=== PATIENT | male | born 1935 | race Caucasian/White ===

== ENCOUNTER 2019-06-28 10:53 | Outpatient (CLI) | payer MEDICARE, SELFPAY ==
--- NOTE | 2019-06-28 11:03 | USCV_ITS ---
ReneeAlessandro Age: 83 Gender: M : 1935 Exam Date: 06/28/2019 11:14 Ordering Phys: Marlin Jesus Technologist: Monserrat Self Exam Location: [facility] [place] Indication: HISTORY: Lower extremity swelling. PROCEDURES: Bilateral duplex Venous Insufficiency study of the Deep and Superficial systems was carried out according to normal protocol with the patient in supine positon for deep system and dependent position for the superficial system. FINDINGS: There is no evidence of bilateral deep vein thrombosis. No evidence of superficial thrombosis in the bilateral saphenous system. No venous reflux noted in the bilateral small saphenous vein. Venous reflux was demonstrated in the RIGHT SFJ with a spectral display of greater than 500 milliseconds. Venous reflux is demonstrated in the RIGHT greater saphenous vein with a spectral Doppler display of greater than 500 milliseconds at the below the knee level. No venous reflux noted in the LEFT greater saphenous vein. Reflux is demonstrated in the deep venous system at the level of the RIGHT popliteal. Reflux is demonstrated in the deep venous system at the level of the LEFT popliteal. CONCLUSIONS 1. Significant venous reflux of greater than 1000 ms were noted in the right and left popliteal veins. 2. Significant venous reflux of greater than 500 ms were noted at the right saphenofemoral junction and below-knee greater saphenous vein segment. 3. No significant superficial venous reflux was noted on the left side. 4. Venous dimensions, reflux times and depth from the surface are as mentioned above Dr Chyna Hudson MD [facility] (Electronically Signed) Final Date: 28 June 2019 19:42 S
== END 2019-06-28 10:54 | disposition home or self-care (01) ==
LOC: RAD 10:55
PROVIDERS: Family Provider Family Medicine; Visit Provider Nurse Practitioner Family
DX: M79.89 Other specified soft tissue disorders (principal)
CPT/HCPCS: 93970

== ENCOUNTER 2019-11-29 05:52 | Observation (INO) | payer MEDICARE, SELFPAY ==
[2019-11-29] VITALS (18 sets, daily range): BP systolic 105–171; BP diastolic 52–87; PULSE 74–118; RESP 18–22; TEMP 36.7–39.4; O2SAT 92–100; BMI 23.8
--- NOTE | 2019-11-29 06:05 | W.ED.GENADLT ---
HPI - General Adult General: Chief complaint: Fever Stated complaint: 102.8 temp Time Seen by Provider: 11/29/19 06:05 History of Present Illness: HPI narrative: 83-year-old male presents with a fever last night up to 102.8 on oral temp. Does around 3:30 AM family states he took some Tylenol. He said he is a low-grade fever for the last several days he said some urinary retention and urgency he has been able to go a bit but has not been able to completely empty his bladder has had some dysuria as well and the urine is been discolored and foul-smelling. Last night he has been somewhat short of breath as well as some orthopnea. He denies any hematuria that he is noticed his bowel movements have been unchanged from his usual pattern of moderate bowel urgency but no hematochezia or melena. He does have some chronic neck pain but that is been unchanged as well he has a history of prostate CA remote he was treated with radiation but he is not had any follow-up. He denies cough or productive cough no exposure to known COVID cases recently. MD complaint: Fever Onset (ago): day(s) Radiation: non-radiation Severity: moderate Quality: aching Pain Consistency: intermittent Relieving factors: none Exacerbating factors: none Associated symptoms: Reports dyspnea, fevers/chills and malaise; Deny chest pain, confusion, cough, diaphoresis, decreased appetite, headache(s), nausea, rash, palpitations, seizures, short of breath, syncope, vomiting or weakness Treatments prior to arrival: other (Acetaminophen) Review of Systems Const: Reports: malaise; Denies: diaphoresis ENMT: Denies: throat pain, ear or mastoid pain, nasal discharge or nasal congestion Card: Denies: chest pain, palpitations or syncope Resp: Reports: dyspnea, productive cough, non-productive cough, wheezing and chest congestion GI: Denies: nausea or vomiting : Reports: urinary frequency and urinary urgency; Denies: flank pain or dysuria Skin/Breast: Denies: rash Neuro: Denies: headache(s) or confusion Danny/Lymph: Denies: easy bruising or easy bleeding PFS ED PFSH: Medical History Anxiety COPD (chronic obstructive pulmonary disease) Diastolic congestive heart failure History of CVA (cerebrovascular accident) History of seizure disorder History of seizures Hyperlipidemia Hypertension Prostate CA Status post radiation Pulmonary hypertension Surgical History History of cataract surgery History of excision of lesion L neck History of tonsillectomy Family History Mother , 98, healthy No problems noted. Father CAD (coronary artery disease) Social History (Updated 11/29/19 @ 10:13 by Aline Kumar DO) Smoking and tobacco status: heavy tobacco smoker cigarettes Packs smoked per day: 1 Years cigarettes smoked: 40 Number of cigarettes per day: >20 [ Other cigarette details: [id number] history ] Quit status (tobacco): has quit using tobacco Year quit tobacco: 20 years ago Second hand smoke exposure: No Alcohol intake: never Substance/Drug Use: never Lives independently: Yes Household members: none Physical Exam Const: COMMON NORMALS: no acute distress GENERAL APPEARANCE: cooperative and comfortable ORIENTATION/CONSCIOUSNESS: Yes awake, Yes oriented to person, Yes oriented to place and Yes oriented to time HENMT: COMMON NORMALS: normocephalic, atraumatic, hearing grossly normal bilaterally, external ears normal, EAC's normal, TM's normal bilaterally, Normal nasal mucous membranes and turbinates present, moist oral mucous membranes and oropharynx normal HEAD & SCALP: normocephalic and atraumatic NOSE: Normal nasal mucous membranes and turbinates present EXTERNAL EAR: Yes external ears normal EXTERNAL AUDITORY CANAL: EAC's normal TYMPANIC MEMBRANE: TM's normal bilaterally Eye: COMMON NORMALS: Equal, round and reactive pupils present, EOMs intact bilaterally, conjunctivae normal and no scleral icterus CONJUNCTIVA: Yes conjunctivae normal PUPIL: Yes Equal, round and reactive pupils present Neck/C-Spine: COMMON NORMALS: full ROM, no lymphadenopathy, supple and no JVD Lymph: LYMPHATIC: no lymphadenopathy noted and no lymphedema noted Resp: COMMON NORMALS: normal respiratory effort, No retractions and No use of accessory muscles AUSCULTATION: wheezes expiratory wheezes and throughout and diminished lung sounds Cardio: COMMON NORMALS: no JVD, regular rate, regular rhythm and No murmurs present (Cardio) RATE: regular rate RHYTHM: regular rhythm GI: COMMON NORMALS: Soft to palpation and No hepatosplenomegaly present AUSCULTATION: Yes normoactive bowel sounds PALPATION: Yes Soft to palpation, Yes Tenderness to palpation present (GI) (Mild suprapubic discomfort no guarding no rebound), No Guarding due to palpation present (GI) and Yes No hepatosplenomegaly present Extremity: COMMON NORMALS: normal to inspection, capillary refill normal, no clubbing, cyanosis or edema, no calf tenderness and no pedal edema Neuro: SENSORIUM/ORIENTATION: Yes oriented to person, Yes oriented to place and Yes oriented to time Skin: COMMON NORMALS: no rashes or lesions noted GENERAL SKIN EXAM: no rashes or lesions noted Course Vital Signs: Vital signs: Vital Signs Temperature 102.9 F H 11/29/19 11:45 Pulse Rate 74 11/29/19 11:45 Respiratory Rate 18 11/29/19 11:45 Blood Pressure 146/78 11/29/19 11:45 Pulse Oximetry 95 11/29/19 11:45 MDM - General Adult MDM Narrative: Medical decision making narrative: Discussed with Dr. Kumar he definitely has some signs of interstitial fibrosis in some fluid overloaded clinically have did get some improvement in the emergency room with IV diuretics but I suspect is interstitial fibrosis her primary probably also needs some improvement with his COPD he will need further evaluation quitting rule out [place] and further cardiac evaluation as well as review of old records from his other sources. Also concerned about COVID and he has been swapped Dr. Kumar as accepted onto her service. Lab Data: Labs: Lab Results 11/29/19 11/29/19 11/29/19 Range/Units 06:30 07:10 07:38 WBC 5.8 (4.0-10.0) 10^3/ uL RBC 4.05 L (4.1-5.3) 10^6/u L Hgb 12.0 (11.7-16.6) g/dL Hct 37.2 L (42.0-52.0) % MCV 91.9 (80-94) fL MCH 29.6 (28.0-34.0) pg MCHC 32.3 (30.0-36.0) g/dL RDW 12.1 (12.1-15.1) % Plt Count 225 (130-400) 10^3/c mm MPV 8.9 (7.4-10.4) fL Neut % (Auto) 84.3 % Lymph % (Auto) 7.7 % [place] % (Auto) 7.0 % Eos % (Auto) 0.2 % Baso % (Auto) 0.5 % Neut # (Auto) 4.9 (1.8-7.7) 10^3/u L Lymph # (Auto) 0.4 L (0.8-4.8) 10^3/u L [place] # (Auto) 0.4 (0.2-0.9) 10^3/u L Eos # (Auto) 0.0 (0.0-0.8) 10^3/u L Baso # (Auto) 0.0 (0.0-0.1) 10^3/u L Nucleated RBC % (a uto) 0 % Nucleated RBCs # 0.0 /100WBC Sodium (136-145) mmol/L Potassium (3.5-5.1) mmol/L Chloride (98-107) mmol/L Carbon Dioxide (22-29) mmol/L Anion Gap (5-19) BUN (8-23) mg/dL Creatinine (0.7-1.2) mg/dL Glucose (65-115) mg/dL Calculated Osmolal ity (285-295) mOsm/k g Lactate (0.5-2.2) mmol/L Calcium (8.5-10.5) mg/dL Total Bilirubin (0.15-1.2) mg/dL AST (0-40) U/L ALT (0-41) U/L Alkaline Phosphata se (40-130) IU/L Total Protein (6.6-8.7) g/dL Albumin (3.5-5.2) g/dL Globulin (1.3-4.6) g/dL Lipase (13-60) U/L Urine Color Martin (Yellow) Urine Appearance Cloudy (CLEAR) Urine pH 6.0 (5-7) Ur Specific Gravit y 1.010 (1.005-1.030) Urine Protein 2+ H (Negative) Urine Glucose (UA) Norm (Normal) Urine Ketones Negative (Negative) Urine Blood 2+ H (Negative) Urine Nitrate Positive H (Negative) Urine Bilirubin 2+ H (NEGATIVE) Urine Urobilinogen 4 H (Negative) mg/dL Ur Leukocyte Michelle ase 2+ H (Negative) Urine RBC 0-4 H (0-2) /hpf Urine WBC >100 H (0-5) /hpf Ur Squamous Epith Cells 0-4 H (0-5) Urine Bacteria 3+ H (NONE) Influenza Type A A g Negative (Negative) Influenza Type B A g Negative (Negative) 11/29/19 11/29/19 Range/Units 07:38 07:38 WBC (4.0-10.0) 10^3/ uL RBC (4.1-5.3) 10^6/u L Hgb (11.7-16.6) g/dL Hct (42.0-52.0) % MCV (80-94) fL MCH (28.0-34.0) pg MCHC (30.0-36.0) g/dL RDW (12.1-15.1) % Plt Count (130-400) 10^3/c mm MPV (7.4-10.4) fL Neut % (Auto) % Lymph % (Auto) % [place] % (Auto) % Eos % (Auto) % Baso % (Auto) % Neut # (Auto) (1.8-7.7) 10^3/u L Lymph # (Auto) (0.8-4.8) 10^3/u L [place] # (Auto) (0.2-0.9) 10^3/u L Eos # (Auto) (0.0-0.8) 10^3/u L Baso # (Auto) (0.0-0.1) 10^3/u L Nucleated RBC % (a uto) % Nucleated RBCs # /100WBC Sodium 141 (136-145) mmol/L Potassium 3.5 (3.5-5.1) mmol/L Chloride 101 (98-107) mmol/L Carbon Dioxide 26 (22-29) mmol/L Anion Gap 17.5 (5-19) BUN 17 (8-23) mg/dL Creatinine 0.9 (0.7-1.2) mg/dL Glucose 98 (65-115) mg/dL Calculated Osmolal ity 288 (285-295) mOsm/k g Lactate 1.2 (0.5-2.2) mmol/L Calcium 9.3 (8.5-10.5) mg/dL Total Bilirubin 0.3 (0.15-1.2) mg/dL AST 30 (0-40) U/L ALT 11 (0-41) U/L Alkaline Phosphata se 133 H (40-130) IU/L Total Protein 7.3 (6.6-8.7) g/dL Albumin 4.5 (3.5-5.2) g/dL Globulin 2.8 (1.3-4.6) g/dL Lipase 48 (13-60) U/L Urine Color (Yellow) Urine Appearance (CLEAR) Urine pH (5-7) Ur Specific Gravit y (1.005-1.030) Urine Protein (Negative) Urine Glucose (UA) (Normal) Urine Ketones (Negative) Urine Blood (Negative) Urine Nitrate (Negative) Urine Bilirubin (NEGATIVE) Urine Urobilinogen (Negative) mg/dL Ur Leukocyte Michelle ase (Negative) Urine RBC (0-2) /hpf Urine WBC (0-5) /hpf Ur Squamous Epith Cells (0-5) Urine Bacteria (NONE) Influenza Type A A g (Negative) Influenza Type B A g (Negative) Discharge Plan Discharge Patient Disposition: Placed in Observation Admit Provider: Aline Kumar Clinical Impression: COPD (chronic obstructive pulmonary disease), Cystitis, Diffuse interstitial pulmonary fibrosis Condition: Stable Discharge Diet: Usual diet Interventions: ED Discharge Assessment Last Done: 11/29/19 09:50 ED Charges Last Done: 11/29/19 09:50 Discharge Date/Time: 11/29/19 10:17 Coding Level of Care Code ED Online Project Manager for Michaelg Fwd Exam Comprehensive
--- NOTE | 2019-11-29 06:37 | XR_ITS ---
WS: [id number] PORTABLE CHEST HISTORY: dyspnea/cough COMPARISON: 03/16/2019 Hyperinflated lungs. No pneumonia. Biapical pleural thickening and scarring is stable. No pleural eff usion or pneumothorax. Cardiac size: Normal. Mediastinum/Aorta: Mild atherosclerosis aorta. No osseous abnormality seen. XR/XR chest 1V portable [id number] IMPRESSION: Chronic emphysema and partially calcified aorta.
[2019-11-29 07:43] LABS: Influenza A by IFA Negative (Negative); Influenza B by IFA Negative (Negative)
[2019-11-29 07:48] LABS: Basophils % 0.5 %; Eosinophils % 0.2 %; Hematocrit 37.2 % (42.0-52.0); Lymphocytes # 0.4 10^3/uL (0.8-4.8); Lymphocytes % 7.7 %; Mean Corpuscular HGB Conc 32.3 g/dL (30.0-36.0); Mean Corpuscular Hemoglobin 29.6 pg (28.0-34.0); Mean Corpuscular Volume 91.9 fL (80-94); Mean Platelet Volume 8.9 fL (7.4-10.4); Monocytes # 0.4 10^3/uL (0.2-0.9); Neutrophils # 4.9 10^3/uL (1.8-7.7); Neutrophils % 84.3 %; Nucleated Red Blood Cells % 0 %; Platelet Count 225 10^3/cmm (130-400); Red Blood Count 4.05 10^6/uL (4.1-5.3); Red Cell Distribution Width 12.1 % (12.1-15.1); White Blood Count 5.8 10^3/uL (4.0-10.0)
[2019-11-29 08:01] LABS: Add Urine Culture? Yes; Add Urine Microscopic? YES; Bacteria Urine 3+; Bilirubin Urine 2+ (NEGATIVE); Blood Urine 2+ (Negative); Glucose Urine UA Norm (Normal); Ketones Urine Negative (Negative); Leukocyte Esterase Urine 2+ (Negative); Nitrate Urine Positive (Negative); Protein Urine 2+ (Negative); RBC Urine 0-4 /hpf (0-2); Squamous Epithelial Cell Urine 0-4 (0-5); Urine Appearance Cloudy (CLEAR); Urine Color Orange (Yellow); Urobilinogen Urine 4 mg/dL (Negative); WBC Urine >100 /hpf (0-5)
[2019-11-29 08:03] LABS: Alanine Aminotransferase 11 U/L (0-41); Albumin Level 4.5 g/dL (3.5-5.2); Alkaline Phosphatase 133 IU/L (40-130); Anion Gap 17.5 (5-19); Aspartate Amino Transferase 30 U/L (0-40); Blood Urea Nitrogen 17 mg/dL (8-23); Calcium 9.3 mg/dL (8.5-10.5); Carbon Dioxide 26 mmol/L (22-29); Chloride 101 mmol/L (98-107); Globulin 2.8 g/dL (1.3-4.6); Glucose 98 mg/dL (65-115); Lipase 48 U/L (13-60); Osmolality Calculated 288 mOsm/kg (285-295); Potassium 3.5 mmol/L (3.5-5.1); Sodium 141 mmol/L (136-145); Total Bilirubin 0.3 mg/dL (0.15-1.2); Total Protein 7.3 g/dL (6.6-8.7)
[2019-11-29 08:04] LABS: Lactate (Lactic Acid level) 1.2 mmol/L (0.5-2.2)
[2019-11-29] MEDS: cefTRIAXone 1,000 MG in sodium chloride 0.9% (plus) 50 ML 100 MG IV (08:14)
[2019-11-29] MEDS: sodium chloride 0.9% 1,000 ML 999 ML IV (08:15)
[2019-11-29] MEDS: ipratropium-albuterol 3 mL Neb INHALATION ×2 (08:20→17:31)
--- NOTE | 2019-11-29 09:23 | P.HP_ITS ---
Providers/Chief Complaint Admitting Physician: Alien Kumar DO Chief Complaint: 102.8 temp History of Present Illness Alessandro Duran is a 83 year old male that presented to the ED for fever. Patient has a past medical history of hypertension, COPD, history of seizure disorder, history of CVA, history of prostate cancer with radiation, diastolic congestive heart failure and moderate pulmonary hypertension. Patient reports that symptoms started last week, around Friday or . Stated he began feeling fever and dysuria. Has been having continued burning with urination since that time. He states that overnight he began developing chills and night sweats. Reported that his highest temperature at home was 102.8 ?F. Patient denies any sick contacts, no recent antibiotics. He reports history of prostate cancer, however no chronic indwelling Grewal catheter, no recent Grewal catheter. Patient denies any history of resistant urinary tract infections. Patient noted some chronic cough with chronic sputum production secondary to COPD, no change from baseline, no hemoptysis. No exposure to anyone pending or positive for CO VID-19. Patient was seen and evaluated in the emergency department noted to have concern for UTI and admitted for further evaluation and treatment. Review of Systems Const: Reports: fever(s) and chills Eyes: Denies: change in vision ENMT: Denies: nasal congestion Card: Denies: chest pain, palpitations or edema Resp: Reports: productive cough (chronic, unchanged); Denies: dyspnea or hemoptysis GI: Denies: abdominal pain, nausea, vomiting, diarrhea, constipation, hematochezia or melena : Reports: difficulty urinating, dysuria and urinary dribbling; Denies: hematuria Musc: Denies: extremity pain or muscle cramps Skin/Breast: Denies: rash or new lesions Neuro: Denies: headache(s) or dizziness Psych: Denies: anxiety or depression Endo: Denies: polyuria or hot flashes Danny/Lymph: Denies: easy bruising or easy bleeding Medications/Allergies Home Medications Medication Instructions Recorded Confirmed Last Taken Type amlodipine 5 mg PO DAILY 11/29/19 11/29/19 11/28/19 History aspirin 81 mg PO DAILY 11/29/19 11/29/19 11/28/19 History furosemide 20 mg PO DAILY 11/29/19 11/29/19 11/28/19 History gemfibrozil 600 mg PO BID 11/29/19 11/29/19 11/28/19 History hydralazine 5 mg PO TID 11/29/19 11/29/19 11/28/19 History ipratropium-albuterol 3 ml INHALATION Q6H PRN 11/29/19 11/29/19 Unknown History losartan 100 mg PO DAILY 11/29/19 11/29/19 11/28/19 History metoprolol tartrate 100 mg PO BID 11/29/19 11/29/19 11/28/19 History oxcarbazepine 300 mg PO BID 11/29/19 11/29/19 11/28/19 History potassium chloride 20 meq PO DAILY 11/29/19 11/29/19 11/28/19 History Allergies Allergy/AdvReac Type Severity Reaction Status Date / Time amoxicillin Allergy Unknown Verified 11/29/19 06:05 PFSH Acute PFSH: Medical History Anxiety COPD (chronic obstructive pulmonary disease) Diastolic congestive heart failure History of CVA (cerebrovascular accident) History of seizure disorder History of seizures Hyperlipidemia Hypertension Prostate CA Status post radiation Pulmonary hypertension Surgical History History of cataract surgery History of excision of lesion L neck History of tonsillectomy Family History Mother , 98, healthy No problems noted. Father CAD (coronary artery disease) Social History (Updated 11/29/19 @ 10:13 by Aline Kumar DO) Smoking and tobacco status: heavy tobacco smoker cigarettes Packs smoked per day: 1 Years cigarettes smoked: 40 Number of cigarettes per day: >20 [ Other cigarette details: [id number] history ] Quit status (tobacco): has quit using tobacco Year quit tobacco: 20 years ago Second hand smoke exposure: No Alcohol intake: never Substance/Drug Use: never Lives independently: Yes Household members: none Vitals/I&O/Wt Last Vital Signs Temp 98.5 F 11/29/19 08:24 Pulse 117 H 11/29/19 08:59 Resp 22 H 11/29/19 08:59 BP 160/84 11/29/19 08:59 Pulse Ox 99 11/29/19 08:59 Weight last 48 hrs Weight 67.132 kg Physical Exam Const: COMMON NORMALS: patient oriented x3 and alert GENERAL APPEARANCE: cooperative ORIENTATION/CONSCIOUSNESS: Yes awake, Yes oriented to person, Yes oriented to place and Yes oriented to time HENMT: COMMON NORMALS: normocephalic and atraumatic HEAD & SCALP: n ormocephalic and atraumatic Eye: COMMON NORMALS: Equal, round and reactive pupils present PUPIL: Yes Equal, round and reactive pupils present Neck/C-Spine: COMMON NORMALS: supple GENERAL: Yes normal visual inspection Resp: OTHER: Respirations even and unlabored, diminished breath sounds bilaterally with prolonged expiratory phase, no wheezing at time of exam Cardio: COMMON NORMALS: regular rhythm and No murmurs present (Cardio) RATE: tachycardic RHYTHM: regular rhythm GI: COMMON NORMALS: Soft to palpation INSPECTION: No abdominal distension AUSCULTATION: Yes normoactive bowel sounds PALPATION: Yes Soft to palpation OTHER: Mild tenderness to palpation in the suprapubic region, no CVA tenderness : COMMON NORMALS: Yes no CVA tenderness BLADDER/KIDNEY EXAM: Yes no CVA tenderness Back/Pelvis: COMMON NORMALS: no CVA tenderness Extremity: COMMON NORMALS: no clubbing, cyanosis or edema and no calf tenderne ss Neuro: COMMON NORMALS: patient oriented x3, CN's II-XII intact bilaterally, moves all extremities and no focal motor deficits SENSORIUM/ORIENTATION: Yes alert, Yes oriented to person, Yes oriented to place and Yes oriented to time SPEECH: speech normal Psych: COMMON NORMALS: mental status grossly normal and cooperative Skin: COMMON NORMALS: no rashes or lesions noted GENERAL SKIN EXAM: no rashes or lesions noted Data : 11/29/19 07:38 11/29/19 07:38 Micro: Microbiology 11/29/19 08:09 Blood Culture - Preliminary Blood SPECIMEN COLLECTED 11/29/19 07:38 Blood Culture - Preliminary Blood SPECIMEN COLLECTED CXR: I personally reviewed and interpreted this imaging study as follows: Radiologist's impression: Hyperinflated lungs. No pneumonia. Biapical pleural thickening and scarring is stable. No pleural effusion or pneumothorax. Cardiac size: Normal. Mediastinum/Aorta: Mild atherosclerosis aorta. No osseous abnormality seen. XR/XR chest 1V portable [id number] IMPRESSION: Chronic emphysema and partially calcified aorta. A&P Assessment and plan (1) Cystitis: Acute cystitis in the setting of prior history of prostate cancer with radiation greater than 10 years ago We will continue on Rocephin, given 1 dose while in the ED Observation Sinus tachycardia and fever with known UTI. Urine culture and blood culture ordered and pending. Status: Acute (2) COPD (chronic obstructive pulmonary disease): Without acute exacerbation at this time. Patient reports that cough and sputum production are baseline. He has oxygen at home on an as-needed basis, currently on 2 L, will wean as tolerated with a goal oxygen saturation of 90 to 92%. Continue home inhalers at this time, would likely benefit from ICS Status: Acute (3) Hypertension: Restart amlodipine and metoprolol as well as losartan today Status: Acute (4) History of seizure disorder: Patient reports that last seizure was many years ago Monitor closely on seizure precautions and continue home Trileptal Status: Acute (5) Anxiety: Status: Acute (6) History of CVA (cerebrovascular accident): Continue on aspirin, would likely benefit from statin. Will check lipid panel Status: Acute (7) Diastolic congestive heart failure: Patient slightly hypovolemic on admission. Now appears to be euvolemic. Will hold on Lasix until tomorrow morning. Last echocardiogram showed normal LVEF with heart failure with preserved ejection fraction Status: Acute (8) Pulmonary hypertension: Last echocardiogram with moderate pulmonary hypertension Medication plan as above, holding Lasix as noted until tomorrow Status: Acute Additional A&P Information Sinus tachycardia: Likely secondary to not having his metoprolol this morning along with fever from acute cystitis L arm pain: could be secondary to IV, checking IV. 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
--- NOTE | 2019-11-29 10:26 | ECG_ITS ---
Measurements Intervals [place] Rate: 116 P: -76 TX: 131 QRS: -30 QRSD: 86 T: 53 QT: 345 QTc: 479 SINUS TACHYCARDIA SEPTAL MYOCARDIAL INFARCTION , OF INDETERMINATE AGE [40+ ms Q WAVE IN V1/V2] Compared to ECG 09/19/2017 02:38:05 Junctional tachycardia now present Myocardial infarct finding now present Sinus rhythm no longer present Electronically Signed On 11-29-2019 19:28:58 CDT by Essence Hernandez M.D. [id number]
[2019-11-29] MEDS: losartan 50 mg Tablet 100 MG PO (10:35)
[2019-11-29] MEDS: metoprolol tartrate 50 mg Tablet 100 MG PO (10:35)
[2019-11-29] MEDS: aspirin 81 mg Chew Tablet PO (10:35)
[2019-11-29] MEDS: amlodipine 5 mg Tablet PO (10:36)
[2019-11-29] MEDS: sodium chloride 0.9% 1,000 ML 100 ML IV (10:36)
[2019-11-29] MEDS: enoxaparin 40 mg/0.4 mL Syringe SUBCUT (11:07)
[2019-11-29 11:16] LABS: Troponin(5th) Baseline 25 ng/L (0-15)
[2019-11-29 11:25] LABS: Thyroid Stimulating Hormone 0.98 uIU/mL (0.27-4.20)
--- NOTE | 2019-11-29 12:03 | PC.RESP ---
SMOKING CESSATION AND PULMONARY REHAB INFORMATION SENT TO PATIENT.
[2019-11-29] MEDS: acetaminophen 325 mg Tablet 650 MG PO ×2 (12:05→18:08)
--- NOTE | 2019-11-29 12:17 | ECG_ITS ---
Measurements Intervals [place] Rate: 77 P: 68 ID: 200 QRS: -38 QRSD: 85 T: 39 QT: 403 QTc: 457 SINUS RHYTHM WITH SINUS ARRHYTHMIA MARKED LEFT AXIS DEVIATION [QRS AXIS < -30] Compared to ECG 09/19/2017 02:38:05 No significant changes Electronically Signed On 11-29-2019 19:31:33 CDT by Essence Hernandez M.D. [id number]
[2019-11-29 13:24] LABS: Troponin 5 2HR 26.56 ng/L (0-15); Troponin 5 2HR Delta 1.56 ABS# (0-10)
[2019-11-29] MEDS: hyDRALAzine 10 mg Tablet 5 MG PO (14:35)
--- NOTE | 2019-11-29 16:17 | ECG_ITS ---
Measurements Intervals [place] Rate: 86 P: 8 FL: 150 QRS: -28 QRSD: 89 T: 44 QT: 386 QTc: 464 SINUS RHYTHM BORDERLINE LEFT AXIS DEVIATION [QRS AXIS < -20] Compared to ECG 09/19/2017 02:38:05 No significant changes Electronically Signed On 11-29-2019 19:31:50 CDT by Essence Hernandez M.D. [email or web address]
[2019-11-29] MEDS: OXcarbazepine 300 mg Tablet PO (17:03)
[2019-11-29 17:17] LABS: Troponin 5 6HR 31.16 ng/L (0-15); Troponin 5 6HR Delta 6.16 ng/L (0-12)
[2019-11-29] MEDS: TRAMadol 50 mg Tablet PO (18:07)
[2019-11-30] VITALS (9 sets, daily range): BP systolic 144–162; BP diastolic 45–99; PULSE 82–103; RESP 17–22; TEMP 36.6–37.5; O2SAT 90–95
[2019-11-30 05:50] LABS: Basophils % 0.4 %; Hemoglobin 10.2 g/dL (11.7-16.6); Lymphocytes # 0.7 10^3/uL (0.8-4.8); Lymphocytes % 14.9 %; Mean Corpuscular HGB Conc 32.9 g/dL (30.0-36.0); Mean Corpuscular Hemoglobin 29.9 pg (28.0-34.0); Mean Corpuscular Volume 90.9 fL (80-94); Mean Platelet Volume 8.8 fL (7.4-10.4); Monocytes # 0.6 10^3/uL (0.2-0.9); Monocytes % 12.3 %; Neutrophils # 3.3 10^3/uL (1.8-7.7); Neutrophils % 72.2 %; Nucleated Red Blood Cells % 0 %; Platelet Count 193 10^3/cmm (130-400); Red Blood Count 3.41 10^6/uL (4.1-5.3); Red Cell Distribution Width 12.1 % (12.1-15.1); White Blood Count 4.6 10^3/uL (4.0-10.0)
[2019-11-30 06:16] LABS: Alanine Aminotransferase 12 U/L (0-41); Albumin Level 3.5 g/dL (3.5-5.2); Alkaline Phosphatase 89 IU/L (40-130); Anion Gap 16.4 (5-19); Aspartate Amino Transferase 33 U/L (0-40); Blood Urea Nitrogen 12 mg/dL (8-23); Calcium 9.2 mg/dL (8.5-10.5); Carbon Dioxide 24 mmol/L (22-29); Chloride 102 mmol/L (98-107); Creatinine Clr Calc Pharmacy 63.3236; Globulin 2.8 g/dL (1.3-4.6); Glucose 99 mg/dL (65-115); Osmolality Calculated 284 mOsm/kg (285-295); Potassium 3.4 mmol/L (3.5-5.1); Sodium 139 mmol/L (136-145); Total Bilirubin 0.2 mg/dL (0.15-1.2); Total Protein 6.3 g/dL (6.6-8.7)
[2019-11-30 06:21] LABS: Chol HDL Ratio 4.28 mg/dL (1.0-5.00); Cholesterol 154 mg/dL (0-200); HDL Cholesterol 36 mg/dL (60-100); LDL Cholesterol Calculated 93 mg/dL (50-129); LDL HDL Ratio 2.58 RATIO (0.00-3.22); Triglycerides 124 mg/dL (0-150)
[2019-11-30] MEDS: losartan 50 mg Tablet 100 MG PO (08:38)
[2019-11-30] MEDS: aspirin 81 mg Chew Tablet PO (08:38)
[2019-11-30] MEDS: hyDRALAzine 10 mg Tablet 5 MG PO ×3 (08:39→20:25)
[2019-11-30] MEDS: FUROsemide 20 mg Tablet PO (08:41)
[2019-11-30] MEDS: amlodipine 5 mg Tablet PO (08:41)
[2019-11-30] MEDS: cefTRIAXone 1,000 MG in sodium chloride 0.9% (plus) 50 ML 100 MG IV (08:42)
[2019-11-30] MEDS: metoprolol tartrate 50 mg Tablet 100 MG PO ×2 (09:03→21:12)
[2019-11-30] MEDS: OXcarbazepine 300 mg Tablet PO ×2 (09:06→18:40)
--- NOTE | 2019-11-30 11:03 | PM.PN ---
Subjective Subjective: Interval history: Patient awake in bed at time of exam. He reported that he is feeling much better today. He stated that he was even able to eat breakfast this morning. Appetite is slowly increasing. Patient did have continued fever this morning. He denies any chest pain or shortness of breath. Vitals/I&O/Wt Last Vital Signs Temp 97.9 F 11/30/19 04:00 Pulse 103 H 11/30/19 08:00 Resp 18 11/30/19 08:00 BP 152/45 11/30/19 08:38 Pulse Ox 90 11/30/19 08:00 11/29/19 11/30/19 11/30/19 22:59 06:59 14:59 Intake Total 240 / 240 Output Total 250 / 375 180 / 555 175 / 175 Balance -250 / -325 -180 / -505 65 / 65 Weight last 48 hrs Weight 68.266 kg Weight 67.132 kg Physical Exam Const: COMMON NORMALS: patient oriented x3 and alert GENERAL APPEARANCE: cooperative ORIENTATION/CONSCIOUSNESS: Yes awake, Yes oriented to person, Yes oriented to place and Yes oriented to time HENMT: COMMON NORMALS: normocephalic and atraumatic HEAD & SCALP: normocephalic and atraumatic Eye: COMMON NORMALS: Equal, round and reactive pupils present PUPIL: Yes Equal, round and reactive pupils present Neck/C-Spine: COMMON NORMALS: supple GENERAL: Yes normal visual inspection Resp: COMMON NORMALS: normal respiratory effort and clear to auscultation bilaterally EFFORT & INSPECTION: Yes able to speak in complete sentences AUSCULTATION: clear to auscultation bilaterally, no rhonchi and no wheezes OTHER: Respirations even and unlabored, diminished breath sounds bilaterally with prolonged expiratory phase Cardio: COMMON NORMALS: regular rate, regular rhythm and No murmurs present (Cardio) RATE: regular rate RHYTHM: regular rhythm GI: COMMON NORMALS: Soft to palpation INSPECTION: No abdominal distension AUSCULTATION: Yes normoactive bowel sounds PALPATION: Yes Soft to palpation OTHER: No tenderness to palpation : COMMON NORMALS: Yes no CVA tenderness BLADDER/KIDNEY EXAM: Yes no CVA tenderness Back/Pelvis: COMMON NORMALS: no CVA tenderness Extremity: COMMON NORMALS: no clubbing, cyanosis or edema and no calf tenderness Neuro: COMMON NORMALS: patient oriented x3, CN's II-XII intact bilaterally, moves all extremities and no focal motor deficits SENSORIUM/ORIENTATION: Yes alert, Yes oriented to person, Yes oriented to place and Yes oriented to time SPEECH: speech normal Psych: COMMON NORMALS: mental status grossly normal and cooperative Skin: COMMON NORMALS: no rashes or lesions noted GENERAL SKIN EXAM: no rashes or lesions noted Data : 11/30/19 05:24 11/30/19 05:24 Micro: Microbiology 11/29/19 06:30 Urine Culture - Preliminary Urine,Clean Catch Gram Negative Rods 11/29/19 08:09 Blood Culture - Preliminary Blood NEGATIVE TO DATE 11/29/19 07:38 Blood Culture - Preliminary Blood NEGATIVE TO DATE A&P Assessment and plan (1) Cystitis: Acute cystitis in the setting of prior history of prostate cancer with radiation greater than 10 years ago Patient continues to have fever, will continue with IV antibiotics Urine culture showing gram-negative rods Due to continued fever will continue close monitoring, fever with tachycardia Status: Acute (2) COPD (chronic obstructive pulmonary disease): Without acute exacerbation at this time. Patient reports that cough and sputum production are baseline. He has oxygen at home on an as-needed basis, currently on 2 L, will wean as tolerated with a goal oxygen saturation of 90 to 92%. Continue home inhalers at this time, would likely benefit from ICS Status: Acute (3) Hypertension: Continue amlodipine and metoprolol as well as losartan Status: Acute (4) History of seizure disorder: Patient reports that last seizure was many years ago Monitor closely on seizure precautions and continue home Trileptal Status: Acute (5) Anxiety: Ativan PRN Status: Acute (6) History of CVA (cerebrovascular accident): Continue on aspirin, would likely benefit from statin. Status: Acute (7) Diastolic congestive heart failure: Patient slightly hypovolemic on admission. Now appears to be euvolemic. Will hold on Lasix until tomorrow morning. Last echocardiogram showed normal LVEF with heart failure with preserved ejection fraction Status: Acute (8) Pulmonary hypertension: Last echocardiogram with moderate pulmonary hypertension Medication plan as above, lasix continued today Status: Acute Additional A&P Information Sinus tachycardia: secondary to fever L arm pain: resolved DVT prophylaxis: Lovenox Diet: Regular CODE STATUS: Full code Attestations Medical Necessity Statement*: Patient requires continued hospitalization due to acute cystitis with fever and tachycardia Coding Level of Care Code Acute Animal Husbandry Technician for Chg Fwd Diagnoses Cystitis N30.90 COPD (chronic obstructive pulmonary disease) J44.9 Hypertension I10 History of seizure disorder Z86.69 Anxiety F41.9 History of CVA (cerebrovascular accident) Z86.73 Diastolic congestive heart failure I50.30 Pulmonary hypertension I27.20
[2019-11-30] MEDS: enoxaparin 40 mg/0.4 mL Syringe SUBCUT (11:55)
--- NOTE | 2019-11-30 18:59 | PC.NURSE ---
IV CAME OUT, NOTIFIED DR ARCEO.
--- NOTE | 2019-11-30 19:08 | PC.NURSE ---
OK WITH IV STAYING OUT.
[2019-12-01] VITALS (9 sets, daily range): BP systolic 140–164; BP diastolic 83–91; PULSE 76–102; RESP 18–20; TEMP 36.9–37.2; O2SAT 92–96
[2019-12-01] MEDS: ipratropium-albuterol 3 mL Neb INHALATION (07:56)
[2019-12-01] MEDS: FUROsemide 20 mg Tablet PO (08:31)
[2019-12-01] MEDS: hyDRALAzine 10 mg Tablet 5 MG PO (08:31)
[2019-12-01] MEDS: aspirin 81 mg Chew Tablet PO (08:31)
[2019-12-01] MEDS: OXcarbazepine 300 mg Tablet PO (08:31)
[2019-12-01] MEDS: amlodipine 5 mg Tablet PO (08:31)
[2019-12-01] MEDS: cefTRIAXone 1,000 MG in sodium chloride 0.9% (plus) 50 ML 100 MG IV (08:32)
[2019-12-01] MEDS: losartan 50 mg Tablet 100 MG PO (08:32)
[2019-12-01] MEDS: enoxaparin 40 mg/0.4 mL Syringe SUBCUT (08:33)
[2019-12-01] MEDS: metoprolol tartrate 50 mg Tablet 100 MG PO (08:33)
--- NOTE | 2019-12-01 09:51 | PC.CHAP ---
Pastoral Care Encounter/Spiritual Assessment Type of Contact [] Declined laundry machine tender visit [] Patient/Family/Request visit [] Outpatient visit [] Follow-up visit [] Physician referral [] Code/Alert [] Routine visit [] Staff referral [] Actively dying [] Patient sleeping [] Family support [] [] Out of room [] Palliative care [] [] Receiving care in room [] Pre-surgical visit [] Trauma [] Long length of stay [] ICU visit [] Other: Relational/Emotional Strength [] Patient feels connected with others/family/visitors/staff [] Distress [] Loneliness/isolation [] Abandonment Spirituality of Patient [] Person of [place] [] Attends Catholic of their [place] [] Believes in Prayer [] Reads Bible or Christianity materials [] There are Spiritual issues to be addressed Residential Director Interventions [x] Prayer [] Active listening [] Non-anxious presence [] Spiritual/emotional support [] Crisis/trauma care [] Spiritual counseling [] Bereavement support [] Provided bereavement packet [] Provided Bible/devotional materials [] Provided toy/stuffed animal, coloring book to patient or family member [] Provided Communion [] Anointing/[place] [] Salvation [x] Completed spiritual assessment [] Other: Impact on Illness or Injury [] Angry [] Fearful [] Anxious [] Often cries [] Exhaustion [] Unable to work [] Unable to attend holiness [] Unable to walk/stand [] Unable to read [] Unable to drive [] Unable to eat/drink [] Unable to sleep [] Unable to be with family [] Patient intubated [] Other: Summary Dropped in on Patient. Patient feeling stronger Time spent with patient 5 min
--- NOTE | 2019-12-01 10:00 | P.DS_ITS ---
Discharge Providers Date of Admission: 11/29/19 09:00 Date of Discharge: December 01, 2019 Attending Provider at Admission: Aline Kumar DO Attending Provider at Discharge: Aline Kumar DO Primary Care Provider: Carl Parham Jr, MD Diagnoses at Discharge Discharge Diagnosis (1) Cystitis: Status: Acute (2) COPD (chronic obstructive pulmonary disease): Status: Acute (3) Hypertension: Status: Acute (4) History of seizure disorder: Status: Acute (5) Anxiety: Status: Acute (6) History of CVA (cerebrovascular accident): Status: Acute (7) Diastolic congestive heart failure: Status: Acute (8) Pulmonary hypertension: Status: Acute Reason for Visit Reason for Visit: 102.8 temp Hospital Course Hospital Course: Patient was seen and evaluated in the emergency department noted to have concern for febrile illness secondary to acute cystitis. Patient was started on IV Rocephin and admitted to the hospital for further evaluation and treatment. Patient continued to have intermittent fevers decreased energy and appetite. This continued to gradually improve with IV antibiotic therapy. Patient's fevers continued to improve and he remained afebrile for 24 hours prior to discharge. On date of discharge she was awake and alert, denied any chest pain or shortness of breath, denied any abdominal pain or nausea and stated that he was feeling much better. Discussed with patient plan for discharge to home with close follow-up with his primary care provider and oral antibiotics, patient verbalized understanding and agreed with plan. Physical Exam Const: COMMON NORMALS: patient oriented x3 and alert GENERAL APPEARANCE: cooperative ORIENTATION/CONSCIOUSNESS: Yes awake, Yes oriented to person, Yes oriented to place and Yes oriented to time HENMT: COMMON NORMALS: normocephalic and atraumatic HEAD & SCALP: n ormocephalic and atraumatic Eye: COMMON NORMALS: Equal, round and reactive pupils present PUPIL: Yes Equal, round and reactive pupils present Neck/C-Spine: COMMON NORMALS: supple GENERAL: Yes normal visual inspection Resp: COMMON NORMALS: normal respiratory effort and clear to auscultation bilaterally EFFORT & INSPECTION: Yes able to speak in complete sentences AUSCULTATION: clear to auscultation bilaterally, no rhonchi and no wheezes OTHER: Respirations even and unlabored, diminished breath sounds bilaterally with prolonged expiratory phase Cardio: COMMON NORMALS: regular rate, regular rhythm and No murmurs present (Cardio) RATE: regular rate RHYTHM: regular rhythm GI: COMMON NORMALS: Soft to palpation INSPECTION: No abdominal distension AUSCULTATION: Yes normoactive bowel sounds PALPATION: Yes Soft to palpation OTHER: No tenderness to palpation : COMMON NORMALS: Yes no CVA tenderness BLADDER/KIDNEY EXAM: Yes no CVA tenderness Back/Pelvis: COMMON NORMALS: no CVA tenderness Extremity: COMMON NORMALS: no clubbing, cyanosis or edema and no calf tenderness Neuro: COMMON NORMALS: patient oriented x3, CN's II-XII intact bilaterally, moves all extremities and no focal motor deficits SENSORIUM/ORIENTATION: Yes alert, Yes oriented to person, Yes oriented to place and Yes oriented to time SPEECH: speech normal Psych: COMMON NORMALS: mental status grossly normal and cooperative Skin: COMMON NORMALS: no rashes or lesions noted GENERAL SKIN EXAM: no rashes or lesions noted Discharge Data Data Completed and Pending: Completed Studies During Hospitalization Category Date Time Status XR chest 1V roland ble [id number] Stat Exams 11/29/19 06:37 Completed Pending at discharge Category Date Time Status Blood Culture Sta t Lab 11/29/19 08:09 Results Vitals: Last Vital Signs Temp 98.5 F 12/01/19 07:19 Pulse 88 12/01/19 08:07 Resp 18 12/01/19 07:57 BP 160/84 12/01/19 08:32 Pulse Ox 92 12/01/19 07:57 Discharge Plan Discharge Patient Disposition: Home, Self-Care Condition: Stable Prescriptions: New levofloxacin 500 mg Tablet 500 mg PO DAILY@0600 5 Days Qty: 5 RF: 0 Continued hydralazine 10 mg tablet 5 mg PO TID RF: 0 ipratropium-albuterol 0.5 mg-3 mg(2.5 mg base)/3 mL solution for nebulization 3 ml INHALATION Q6H PRN (Reason: Shortness Of Breath) RF: 0 metoprolol tartrate 100 mg tablet 100 mg PO BID RF: 0 oxcarbazepine 300 mg tablet 300 mg PO BID RF: 0 amlodipine 5 mg tablet 5 mg PO DAILY RF: 0 potassium chloride 20 mEq tablet,ER particles/crystals 20 meq PO DAILY RF: 0 gemfibrozil 600 mg tablet 600 mg PO BID RF: 0 aspirin 81 mg Tablet,Chewable 81 mg PO DAILY RF: 0 furosemide 20 mg tablet 20 mg PO DAILY RF: 0 losartan 100 mg tablet 100 mg PO DAILY RF: 0 Discharge Orders: Discharge Order (Routine); Ordered 12/01/19 Ordered By: Aline Kumar Referrals: Carl Parham Jr, MD [Primary Care Provider] - 7-10 days Discharge Diet: Advance as tolerated and Usual diet Discharge Activity: Increase activity as tolerated Activity Restrictions/Additional Instructions: Discharge to home with antibiotic, Levaquin, this is a once a day medication. 5 days prescribed. Please complete all of antibiotic course. Please monitor for any increased pain with urination, flank pain, fever or chills. Call your physician or present to the ED for any worsening. Continue to increase activity as tolerated and increase diet as tolerated. Call your physician or present to the ED for any acute illness or concern Discharge Attestations Time Spent in Discharge Care*: greater than 30 min Specific Discharge Activities: Specific discharge activities: educating and/or supporting family/caregiver Quality Metrics Clinical Quality Measures During this hospital stay, did patient experience: None Coding Level of Care Code Acute Electric Sign Wirer for Michaelg Fwd Diagnoses Cystitis N30.90 COPD (chronic obstructive pulmonary disease) J44.9 Hypertension I10 History of seizure disorder Z86.69 Anxiety F41.9 History of CVA (cerebrovascular accident) Z86.73 Diastolic congestive heart failure I50.30 Pulmonary hypertension I27.20
[2019-12-01] MEDS: levoFLOXacin 500 mg Tablet PO (10:16)
--- NOTE | 2019-12-01 16:19 | PC.RESP ---
SMOKING CESSATION AND PULMONARY REHAB INFORMATION SENT TO PATIENT.
== END 2019-12-01 13:00 | disposition home or self-care (01) ==
LOC: ER 08:57 → MEDSURG 09:24
PROVIDERS: Family Medicine; Admitting Provider Family Medicine; PCP Family Medicine; Visit Provider Family Medicine
DX: N30.90 Cystitis, unspecified without hematuria (principal); J44.9 Chronic obstructive pulmonary disease, unspecified; Z86.69 Personal history of other diseases of the nervous system and sense organs; F41.9 Anxiety disorder, unspecified; Z86.73 Personal history of transient ischemic attack (TIA), and cerebral infarction without residual deficits; I11.0 Hypertensive heart disease with heart failure; I50.30 Unspecified diastolic (congestive) heart failure; I27.20 Pulmonary hypertension, unspecified; Z79.82 Long term (current) use of aspirin; Z85.46 Personal history of malignant neoplasm of prostate; Z92.3 Personal history of irradiation; Z87.891 Personal history of nicotine dependence
CPT/HCPCS: 12345; 36415; 71045; 80053; 80061; 81001; 83605; 83690; 84443; 84484; 85025; 87040; 87077; 87086; 87186; 87804; 93005; 94640; 94664; 96365; 96372; 99283; 99285; G0378; J0696; J1650; J7030

== ENCOUNTER 2019-12-06 18:11 | Emergency (ER) | payer MEDICARE, SELFPAY ==
[2019-12-06 18:15] VITALS: BP 184/96; PULSE 98; RESP 19; TEMP 36.5; O2SAT 95; BMI 22.7
--- NOTE | 2019-12-06 18:27 | W.ED.EXTPRO ---
HPI - Extremity Problem General: Chief complaint: Extremity Injury, Lower Stated complaint: leg pain Time Seen by Provider: 12/06/19 18:22 History of Present Illness: HPI Narrative: Patient complain about charley horse in right calf today. Has history of sciatica has a history of charley horses. Denies any other problems presently. MD Complaint: extremity pain Onset (ago): day(s) Pain Consistency: intermittent Location: right and lower extremity Severity scale (1-10): 2 Quality: other (Charley horse or cramping) Radiation: proximal Associated symptoms: Deny chest pain, fever(s) or rash Review of Systems Const: Denies: fever(s), chills or body aches Eyes: Denies: change in vision or blurry vision ENMT: Denies: throat pain or nasal congestion Card: Denies: chest pain or dyspnea on exertion Resp: Denies: dyspnea, productive cough or non-productive cough GI: Denies: abdominal pain, nausea or vomiting : Denies: difficulty urinating Musc: Reports: extremity pain (Charley horse right calf) Skin/Breast: Denies: rash Neuro: Denies: headache(s) Psych: Denies: anxiety or depression Danny/Lymph: Denies: easy bruising PFSH ED PFSH: Medical History (Updated 12/02/19 @ 00:00 by ) Anxiety COPD (chronic obstructive pulmonary disease) Diastolic congestive heart failure History of CVA (cerebrovascular accident) History of seizure disorder History of seizures Hyperlipidemia Hypertension Prostate CA Status post radiation Pulmonary hypertension Surgical History History of cataract surgery History of excision of lesion L neck History of tonsillectomy Family History Mother , 98, healthy No problems noted. Father CAD (coronary artery disease) Social History (Updated 11/29/19 @ 10:13 by Aline Kumar DO) Smoking and tobacco status: former smoker Quit status (tobacco): has quit using tobacco Year quit tobacco: 20 years ago Second hand smoke exposure: No Alcohol intake: never Lives independently: Yes Household members: none Physical Exam Const: COMMON NORMALS: no acute distress, average body habitus and patient oriented x3 HENMT: COMMON NORMALS: normocephalic HEAD & SCALP: normal to inspection and normocephalic FACE & SINUS: normal facial exam Eye: COMMON NORMALS: conjunctivae normal GENERAL EYE: appearance normal, both eyes and all related structures CONJUNCTIVA: Yes conjunctivae normal Neck/C-Spine: COMMON NORMALS: no JVD Chest: COMMONS NORMALS: normal inspection of the chest Resp: COMMON NORMALS: normal respiratory effort and clear to auscultation bilaterally AUSCULTATION: clear to auscultation bilaterally Cardio: COMMON NORMALS: no JVD, regular rate and regular rhythm RATE: regular rate RHYTHM: regular rhythm GI: COMMON NORMALS: Normal to inspection, nondistended, normoactive bowel sounds present Extremity: COMMON NORMALS: normal to inspection and full ROM GENERAL: Yes other findings (Right calf appears fine no redness no swelling no tenderness presently able to move foot without problem has good distal neurovascular status) Neuro: COMMON NORMALS: patient oriented x3 Course Vital Signs: Vital signs: Vital Signs Temperature 97.7 F 12/06/19 18:15 Pulse Rate 98 12/06/19 18:15 Respiratory Rate 19 H 12/06/19 18:15 Blood Pressure 184/96 12/06/19 18:15 Pulse Oximetry 95 12/06/19 18:15 Discharge Plan Discharge Prescriptions: No Action hydralazine 10 mg tablet 5 mg PO TID RF: 0 ipratropium-albuterol 0.5 mg-3 mg(2.5 mg base)/3 mL solution for nebulization 3 ml INHALATION Q6H PRN (Reason: Shortness Of Breath) RF: 0 metoprolol tartrate 100 mg tablet 100 mg PO BID RF: 0 oxcarbazepine 300 mg tablet 300 mg PO BID RF: 0 amlodipine 5 mg tablet 5 mg PO DAILY RF: 0 potassium chloride 20 mEq tablet,ER particles/crystals 20 meq PO DAILY RF: 0 gemfibrozil 600 mg tablet 600 mg PO BID RF: 0 aspirin 81 mg Tablet,Chewable 81 mg PO DAILY RF: 0 furosemide 20 mg tablet 20 mg PO DAILY RF: 0 losartan 100 mg tablet 100 mg PO DAILY RF: 0 Coding Level of Care Code ED [employer] for Aldair Pino
[2019-12-06] MEDS: cyclobenzaprine 10 mg Tablet PO (18:43)
[2019-12-06 18:45] LABS: Basophils % 0.5 %; Eosinophils # 0.1 10^3/uL (0.0-0.8); Eosinophils % 1.7 %; Hematocrit 35.5 % (42.0-52.0); Hemoglobin 11.8 g/dL (11.7-16.6); Lymphocytes # 1.9 10^3/uL (0.8-4.8); Lymphocytes % 30.2 %; Mean Corpuscular HGB Conc 33.2 g/dL (30.0-36.0); Mean Corpuscular Hemoglobin 29.5 pg (28.0-34.0); Mean Corpuscular Volume 88.8 fL (80-94); Mean Platelet Volume 8.6 fL (7.4-10.4); Monocytes # 0.6 10^3/uL (0.2-0.9); Monocytes % 9.9 %; Neutrophils # 3.6 10^3/uL (1.8-7.7); Neutrophils % 56.3 %; Nucleated Red Blood Cells % 0 %; Platelet Count 326 10^3/cmm (130-400); Red Cell Distribution Width 12.2 % (12.1-15.1); White Blood Count 6.4 10^3/uL (4.0-10.0)
[2019-12-06 18:58] LABS: D Dimer <= 0.27 ug/mIFEU (0-0.59)
[2019-12-06 19:02] LABS: Alanine Aminotransferase 26 U/L (0-41); Albumin Level 4.5 g/dL (3.5-5.2); Alkaline Phosphatase 96 IU/L (40-130); Aspartate Amino Transferase 32 U/L (0-40); Blood Urea Nitrogen 20 mg/dL (8-23); Calcium 9.9 mg/dL (8.5-10.5); Carbon Dioxide 28 mmol/L (22-29); Chloride 99 mmol/L (98-107); Globulin 2.6 g/dL (1.3-4.6); Glucose 110 mg/dL (65-115); Osmolality Calculated 285 mOsm/kg (285-295); Sodium 139 mmol/L (136-145); Total Bilirubin 0.2 mg/dL (0.15-1.2); Total Protein 7.1 g/dL (6.6-8.7)
[2019-12-06 19:45] VITALS: BP 173/95; PULSE 85; RESP 16; TEMP 36.6; O2SAT 97
== END 2019-12-06 19:47 | disposition home or self-care (01) ==
PROVIDERS: Emergency Provider Nurse Practitioner Family; PCP Family Medicine
DX: M79.604 Pain in right leg (principal); Z79.82 Long term (current) use of aspirin; J44.9 Chronic obstructive pulmonary disease, unspecified; Z86.73 Personal history of transient ischemic attack (TIA), and cerebral infarction without residual deficits; E78.5 Hyperlipidemia, unspecified; I10 Essential (primary) hypertension; Z85.46 Personal history of malignant neoplasm of prostate; Z87.891 Personal history of nicotine dependence
CPT/HCPCS: 12345; 80053; 85025; 85378; 99281; 99283

== ENCOUNTER 2023-03-17 08:49 | Emergency (ER) | payer MEDICARE, SELFPAY ==
[2023-03-17 08:51] VITALS: BP 132/65; PULSE 120; RESP 20; TEMP 36.8; O2SAT 89; BMI 20.3
--- NOTE | 2023-03-17 08:52 | XRR_ITS ---
PROCEDURE INFORMATION: Exam: XR Chest Exam date and time: 03/17/2023 9:28 AM Age: 87 years old Clinical indication: Cough and dyspnea and shortness of breath; Additional info: Dyspnea/cough TECHNIQUE: Imaging protocol: Radiologic exam of the chest. Views: 1 view. COMPARISON: CR XR chest 1V portable [id number] 11/29/2019 7:06 AM FINDINGS: Lungs: Unremarkable. No consolidation. Pleural spaces: Unremarkable. No pleural effusion. No pneumothorax. Heart/Mediastinum: Unremarkable. No cardiomegaly. Bones/joints: Unremarkable. XR/XR chest 1V portable [id number] IMPRESSION: No acute findings.
--- NOTE | 2023-03-17 08:52 | ECG_ITS ---
[facility] Test Date: 2023-03-17 Pat Name: Alessandro Duran Department: Room: Gender: Male Geoscientist: : 1935 Requested By: Simón Quick Order Number: [id number] Laquita MD: Roger Rincon M.D. Measurements Intervals Enigma Rate: 126 P: 0 HI: 0 QRS: -38 QRSD: 96 T: 72 QT: 357 QTc: 517 Interpretive Statements SUPRAVENTRICULAR TACHYCARDIA LEFT AXIS DEVIATION [QRS AXIS < -30] POSSIBLE SEPTAL MYOCARDIAL INFARCTION , OF INDETERMINATE AGE [30 ms Q WAVE IN V1/V2] Compared to ECG 11/29/2019 16:18:57 Myocardial infarct finding now present Sinus rhythm no longer present Electronically Signed On 03-17-2023 16:15:41 CDT by Roger Rincon M.D. [email or web address]
[2023-03-17 09:14] LABS: ABG PCO2 37.5 mmHg (35-45); Alveolar-Arterial Oxygen Gradi 4.5 mmHg (5-10); Arterial Blood Gas Hematocrit 37.7 % (42-52); Base Excess ABG -1.5 mmol/L (-2.0-2.0); Blood Gas Allen Test Pos; Blood Gas Operator Identificat WALCI; Blood Gas Sample Site Radial, right; Blood Gas Sample Type Arterial; Carboxyhemoglobin 0.7 %THgb (0.4-20.1); HGB O2 Sat 92.2 % (95-100); Ionized Calcium Level - ABG 1.2 mmol/L (1.1-1.4); Methemoglobin 1.4 % (0.4-1.5); Oxygen Device NC; Oxygen Saturation ABG 94.2; PO2 ABG 68.5 mmHg (80.0-100.0); Potassium Level - ABG 3.2 mmol/L (3.5-5.0); Total Hemoglobin 12.3 g/dL (14-18)
[2023-03-17 09:18] VITALS: PULSE 127; RESP 18; O2SAT 95
[2023-03-17] MEDS: ipratropium-albuterol 3 mL Neb INHALATION (09:21)
--- NOTE | 2023-03-17 09:22 | W.ED.SOB ---
HPI - SOB/Dyspnea General: Chief Complaint: Shortness of Breath/Dyspnea Stated Complaint: resp distress Time Seen by Provider: 03/17/23 08:52 Source: patient Mode of arrival: EMS History of Present Illness: HPI Narrative: 85-year-old male history of CVA brought in by EMS with complaints of increasing shortness of breath and cough as well as tremor. He feels like he has had chills at times cough is been minimally productive no change from his baseline. No hemoptysis. Patient usually is on nebulizers at home but is not on any long-term maintenance medications for his COPD as per his current medication list. Denies recent changes in medications. MD elicited complaint: shortness of breath Pertinent past history: COPD Onset (ago): hour(s) Timing: constant Severity: mild Exacerbating factors: exertion and coughing Relieving factors: oxygen, rest and bronchodilators Known history of: COPD Associated symptoms: Reports chest congestion and cough; Deny abdominal pain, chest pain, diaphoresis, dizziness, extremity pain, fever(s), hemoptysis, lightheadedness, myalgias, nausea, orthopnea, palpitations, paresthesias, polydipsia, polyuria, rash, sense of impending doom, syncope or vomiting Treatment prior to arrival: oxygen and bronchodilator Review of Systems Const: Reports: chills; Denies: fever(s), fatigue, malaise or diaphoresis ENMT: Denies: throat pain, ear or mastoid pain, nasal discharge or nasal congestion Card: Denies: chest pain, palpitations, lightheadedness, syncope or orthopnea Resp: Reports: dyspnea, non-productive cough, wheezing and chest congestion; Denies: hemoptysis GI: Denies: abdominal pain, nausea or vomiting : Denies: flank pain, dysuria, urinary frequency or urinary urgency Musc: Denies: extremity pain Skin/Breast: Denies: rash or pruritus Neuro: Denies: dizziness Endo: Denies: polyuria or polydipsia PFSH ED PFSH: Medical History Anxiety COPD (chronic obstructive pulmonary disease) Diastolic congestive heart failure History of CVA (cerebrovascular accident) History of seizure disorder History of seizures Hyperlipidemia Hypertension Prostate CA Status post radiation Pulmonary hypertension Surgical History History of cataract surgery History of excision of lesion L neck History of tonsillectomy Family History Mother , 98, healthy No problems noted. Father CAD (coronary artery disease) Social History Smoking and tobacco status: former smoker Quit status (tobacco): has quit using tobacco Year quit tobacco: 20 years ago Second hand smoke exposure: No Alcohol intake: never Substance/Drug Use: never Lives independently: Yes Household members: none Physical Exam Const: GENERAL APPEARANCE: cooperative ORIENTATION/CONSCIOUSNESS: Yes awake, Yes oriented to person, Yes oriented to place and Yes oriented to time HENMT: COMMON NORMALS: normocephalic, atraumatic and hearing grossly normal bilaterally HEAD & SCALP: normocephalic and atraumatic Resp: EFFORT & INSPECTION: Yes tachypneic, Yes pursed lip breathing, Yes uses accessory muscles and Yes prolonged expiratory phase AUSCULTATION: wheezes Cardio: COMMON NORMALS: regular rhythm and No murmurs present (Cardio) RATE: tachycardic RHYTHM: regular rhythm GI: COMMON NORMALS: Soft to palpation and No hepatosplenomegaly present AUSCULTATION: Yes normoactive bowel sounds PALPATION: Yes Soft to palpation, No Tenderness to palpation present (GI), No Guarding due to palpation present (GI) and Yes No hepatosplenomegaly present Extremity: COMMON NORMALS: normal to inspection, capillary refill normal, no clubbing, cyanosis or edema, no calf tenderness and no pedal edema Neuro: SENSORIUM/ORIENTATION: Yes oriented to person, Yes oriented to place and Yes oriented to time Skin: COMMON NORMALS: no rashes or lesions noted GENERAL SKIN EXAM: no rashes or lesions noted Course Vital Signs: Vital signs: Vital Signs Temperature 98.2 F 03/17/23 08:51 Pulse Rate 129 H 03/17/23 10:17 Respiratory Rate 18 03/17/23 10:17 Blood Pressure 98/58 03/17/23 10:17 Pulse Oximetry 92 03/17/23 10:17 Oxygen Delivery Me thod Nasal Cannula 03/17/23 09:36 Oxygen Flow Rate 2 03/17/23 10:17 MDM - SOB/Dyspnea Medical Decision Making Patient states he is feeling much better his wheezing is resolved. He is prefer to go home. Use plain albuterol at home we will discharge him home with DuoNebs. We will start him on Symbicort for long-term maintenance steroid taper orally and a course of doxycycline. Chest x-ray was clear. He denies having any chest pain. COVID is pending. Medical Records I reviewed the patient's medical records. Lab Data I reviewed the patient's lab results. 03/17/23 09:18 03/17/23 09:18 Labs/Radiology: Radiology Impressions Chest X-Ray 03/17/23 08:52 IMPRESSION: No acute findings. Laboratory Results WBC 1.77 10^3/uL (3.29-11.43) L 03/17/23 09:18 RBC 4.05 10^6/uL (3.85-5.65) 03/17/23 09:18 Hgb 12.00 g/dL (11.27-16.99) 03/17/23 09:18 Hct 37.4 % (37-53) 03/17/23 09:18 MCV 92.3 fl (82-101) 03/17/23 09:18 MCH 29.6 pg (27-33) 03/17/23 09:18 MCHC 32.1 g/dL (30-55) 03/17/23 09:18 RDW 12.9 % (12.1-15.1) 03/17/23 09:18 Plt Count 198 10^3/cmm (157-399) 03/17/23 09:18 MPV 8.4 fL (7.4-10.4) 03/17/23 09:18 Neut % (Auto) 83.6 % 03/17/23 09:18 Lymph % (Auto) 12.4 % 03/17/23 09:18 [place] % (Auto) 0.6 % 03/17/23 09:18 Eos % (Auto) 0.0 % 03/17/23 09:18 Baso % (Auto) 0.0 % 03/17/23 09:18 Neut # (Auto) 1.48 10^3/uL (1.8-7.7) L 03/17/23 09:18 Lymph # (Auto) 0.2 10^3/uL (0.8-4.8) L 03/17/23 09:18 [place] # (Auto) 0.0 10^3/uL (0.2-0.9) L 03/17/23 09:18 Eos # (Auto) 0.0 10^3/uL (0.0-0.8) 03/17/23 09:18 Baso # (Auto) 0.0 10^3/uL (0.0-0.1) 03/17/23 09:18 Nucleated RBC % (auto) 0 % 03/17/23 09:18 Nucleated RBCs # 0.0 /100WBC 03/17/23 09:18 Specimen Type Arterial 03/17/23 09:02 Sample Site Radial, right 03/17/23 09:02 ABG pH 7.40 (7.35-7.45) 03/17/23 09:02 ABG pCO2 37.5 mmHg (35-45) 03/17/23 09:02 ABG pO2 68.5 mmHg (80.0-100.0) L 03/17/23 09:02 ABG HCO3 23.0 mmol/L (22-26) 03/17/23 09:02 ABG O2 Saturation 94.2 03/17/23 09:02 ABG Base Excess -1.5 mmol/L (-2.0-2.0) 03/17/23 09:02 Ruben Test Pos 03/17/23 09:02 A-a O2 Gradient 4.5 mmHg (5-10) L 03/17/23 09:02 Hematocrit 37.7 % (42-52) L 03/17/23 09:02 Hgb O2 Saturation 92.2 % (95-100) L 03/17/23 09:02 Carboxyhemoglobin 0.7 %THgb (0.4-20.1) 03/17/23 09:02 Methemoglobin 1.4 % (0.4-1.5) 03/17/23 09:02 Total Hemoglobin 12.3 g/dL (14-18) L 03/17/23 09:02 Sodium 142.0 mmol/L (131-143) 03/17/23 09:02 Potassium 3.2 mmol/L (3.5-5.0) L 03/17/23 09:02 Glucose 118.0 mg/dL (70-115) H 09/25/23 09:02 Ionized Calcium 1.2 mmol/L (1.1-1.4) 03/17/23 09:02 O2 Delivery Device Nc 03/17/23 09:02 O2 Liters/Min 2.0 % 03/17/23 09:02 Mucker [place] ID Kathy 03/17/23 09:02 Sodium 142 mmol/L (136-145) 03/17/23 09:18 Potassium 3.4 mmol/L (3.5-5.1) L 03/17/23 09:18 Chloride 105 mmol/L (98-107) 03/17/23 09:18 Carbon Dioxide 21 mmol/L (22-29) L 03/17/23 09:18 Anion Gap 19.4 (5-19) H 03/17/23 09:18 BUN 20 mg/dL (8-23) 03/17/23 09:18 Creatinine 0.7 mg/dL (0.7-1.2) 03/17/23 09:18 GFR Calculation Not Reportable 03/17/23 09:18 Glucose 103 mg/dL (65-115) 03/17/23 09:18 Calculated Osmolality 297 mOsm/kg (285-295) H 03/17/23 09:18 Calcium 9.0 mg/dL (8.5-10.5) 03/17/23 09:18 Total Bilirubin 0.3 mg/dL (0.15-1.2) 03/17/23 09:18 AST 21 U/L (0-40) 03/17/23 09:18 ALT 11 U/L (0-41) 03/17/23 09:18 Alkaline Phosphatase 116 U/L (40-130) 03/17/23 09:18 Troponin T Baseline 47 ng/L (0-15) H 03/17/23 09:18 Total Protein 6.8 g/dL (6.6-8.7) 03/17/23 09:18 Albumin 4.0 g/dL (3.5-5.2) 03/17/23 09:18 Globulin 2.8 g/dL (1.3-4.6) 03/17/23 09:18 Coronavirus 229E (PCR) Not detected (NOT DETECT) 03/17/23 10:30 SARS-CoV-2 (PCR) Not detected (NOT DETECT) 03/17/23 10:30 SARS-CoV-2 Ag (Rapid) negative (Negative) 03/17/23 09:34 All radiology interpretation(s) finalized by discharge Discharge Plan Discharge Patient Disposition: Home Clinical Impression: Acute exacerbation of chronic obstructive airways disease Condition: Stable Prescriptions: New doxycycline hyclate 100 mg capsule 100 mg PO BID 10 Days Qty: 20 0RF prednisone 20 mg tablet 20 mg PO TID Qty: 15 0RF Rx Instructions: 1 p.o. 3 times daily x3 days, 1 p.o. twice daily x2 days, 1 p.o. daily x2 days ipratropium-albuterol 0.5 mg-3 mg(2.5 mg base)/3 mL solution for nebulization 3 ml inhalation Q4H PRN (Reason: shortness of breath or wheezing) Qty: 90 0RF Symbicort 80-4.5 mcg/actuation HFA aerosol inhaler 2 puff inhalation BID Qty: 10.2 0RF No Action hydralazine 10 mg tablet 5 mg PO TID metoprolol tartrate 100 mg tablet 100 mg PO BID oxcarbazepine 300 mg tablet 300 mg PO BID amlodipine 5 mg tablet 5 mg PO DAILY potassium chloride 20 mEq tablet,ER particles/crystals 20 meq PO DAILY gemfibrozil 600 mg tablet 600 mg PO BID aspirin 81 mg Tablet,Chewable 81 mg PO DAILY furosemide 20 mg tablet 20 mg PO DAILY losartan 100 mg tablet 100 mg PO DAILY Centrum Silver Men 300-600-300 mcg Tablet 1 tab PO DAILY cyclobenzaprine 5 mg tablet 5 mg PO TID PRN (Reason: muscle spasm) Qty: 10 0RF Discharge Orders: Discharge ED (Routine); Ordered 03/17/23 Ordered By: Simón Lind Referrals: Marlin Jesus NP [Primary Care Provider] - Discharge Diet: Usual diet Discharge Activity: Increase activity as tolerated Patient Instructions: Opioid Safety, Pain Management Activity Restrictions/Additional Instructions: Follow-up with your doctor before the end of the week to review symptoms if they worsen or not improving then you need to be reevaluated. Start the Symbicort 2 puffs twice daily today start the oral steroids tomorrow start the oral antibiotics today. You can use the ipratropium bromide/albuterol nebulizers every 4 hours while awake as needed for cough and wheezing. Continue your oxygen at your usual level. Coding Level of Care Code ED [employer] for Aldair Pino
[2023-03-17 09:23] LABS: Hematocrit 37.4 % (37-53); Lymphocytes # 0.2 10^3/uL (0.8-4.8); Lymphocytes % 12.4 %; Mean Corpuscular HGB Conc 32.1 g/dL (30-55); Mean Corpuscular Hemoglobin 29.6 pg (27-33); Mean Corpuscular Volume 92.3 fl (82-101); Mean Platelet Volume 8.4 fL (7.4-10.4); Monocytes % 0.6 %; Neutrophils # 1.48 10^3/uL (1.8-7.7); Neutrophils % 83.6 %; Nucleated Red Blood Cells % 0 %; Platelet Count 198 10^3/cmm (157-399); Red Blood Count 4.05 10^6/uL (3.85-5.65); Red Cell Distribution Width 12.9 % (12.1-15.1); White Blood Count 1.77 10^3/uL (3.29-11.43)
[2023-03-17 09:24] VITALS: PULSE 125
[2023-03-17 09:36] VITALS: BP 126/76; PULSE 135; RESP 20; O2SAT 93
[2023-03-17 09:48] LABS: Alanine Aminotransferase 11 U/L (0-41); Aspartate Amino Transferase 21 U/L (0-40); Blood Urea Nitrogen 20 mg/dL (8-23); Total Protein 6.8 g/dL (6.6-8.7)
[2023-03-17 09:59] LABS: Anion Gap 19.4 (5-19); Carbon Dioxide 21 mmol/L (22-29); Chloride 105 mmol/L (98-107); Globulin 2.8 g/dL (1.3-4.6); Glucose 103 mg/dL (65-115); Osmolality Calculated 297 mOsm/kg (285-295); Potassium 3.4 mmol/L (3.5-5.1); Sodium 142 mmol/L (136-145)
[2023-03-17 10:00] LABS: Alkaline Phosphatase 116 U/L (40-130); Total Bilirubin 0.3 mg/dL (0.15-1.2)
--- NOTE | 2023-03-17 10:09 | PC.NURSE ---
Patient had a bowel movement in his diaper, the Sawyer lindsay cleaned the patient up and changed his diaper and bed.
[2023-03-17 10:17] VITALS: BP 98/58; PULSE 129; RESP 18; O2SAT 92
[2023-03-17 10:19] LABS: Troponin(5th) Baseline 47 ng/L (0-15)
[2023-03-17 10:20] LABS: SARS Covid-2 Antigen negative (Negative)
[2023-03-17 12:24] LABS: Adenovirus Not Detected (NOT DETECT); Chlamydia Pneumoniae Not Detected (NOT DETECT); Coronavirus 229E,HKU1,NL63,OC4 Not Detected (NOT DETECT); Human Metapneumovirus Not Detected (NOT DETECT); Human Rhinovirus/Enterovirus Not Detected (NOT DETECT); Influenza A Not Detected (NOT DETECT); Influenza A H1 Not Detected (NOT DETECT); Influenza A H1-2009 Not Detected (NOT DETECT); Influenza A H3 Not Detected (NOT DETECT); Influenza B Not Detected (NOT DETECT); Mycoplasma Pneumoniae Not Detected (NOT DETECT); Parainfluenza Virus Type 1 Not Detected (NOT DETECT); Parainfluenza Virus Type 2 Not Detected (NOT DETECT); Parainfluenza Virus Type 3 Not Detected (NOT DETECT); Parainfluenza Virus Type 4 Not Detected (NOT DETECT); Respiratory Syncytial Virus A Not Detected (NOT DETECT); Respiratory Syncytial Virus B Not Detected (NOT DETECT); SARS-COV-2 Not Detected (NOT DETECT)
== END 2023-03-17 11:10 | disposition home or self-care (01) ==
PROVIDERS: Emergency Provider Family Medicine; PCP Nurse Practitioner Family
DX: J44.1 Chronic obstructive pulmonary disease with (acute) exacerbation (principal); Z79.82 Long term (current) use of aspirin; Z20.822 Contact with and (suspected) exposure to COVID-19; I11.0 Hypertensive heart disease with heart failure; I50.30 Unspecified diastolic (congestive) heart failure; Z86.73 Personal history of transient ischemic attack (TIA), and cerebral infarction without residual deficits; E78.5 Hyperlipidemia, unspecified; Z85.46 Personal history of malignant neoplasm of prostate; Z92.3 Personal history of irradiation; Z87.891 Personal history of nicotine dependence
CPT/HCPCS: 36415; 36600; 71045; 80051; 80053; 82330; 82805; 84484; 85025; 87426; 87635; 93005; 94640; 99285

== ENCOUNTER 2023-03-17 15:21 | Inpatient (IN) | payer MEDICARE, SELFPAY ==
[2023-03-17] VITALS (21 sets, daily range): BP systolic 72–108; BP diastolic 38–62; PULSE 84–117; RESP 16–26; TEMP 36.9–38.3; O2SAT 70–99; BMI 20.3
--- NOTE | 2023-03-17 15:23 | XRR_ITS ---
PROCEDURE INFORMATION: Exam: XR Chest Exam date and time: 03/17/2023 3:34 PM Age: 87 years old Clinical indication: Cough and dyspnea and fever and shortness of breath; Additional info: Dyspnea/cough TECHNIQUE: Imaging protocol: Radiologic exam of the chest. Views: 1 view. COMPARISON: CR XR chest 1V portable [id number] 03/17/2023 9:28 AM FINDINGS: Lungs: Unremarkable. No consolidation. Pleural spaces: Unremarkable. No pleural effusion. No pneumothorax. Heart/Mediastinum: Unremarkable. No cardiomegaly. Bones/joints: Unremarkable. XR/XR chest 1V portable [id number] IMPRESSION: No acute findings. No significant change.
--- NOTE | 2023-03-17 15:45 | ED_ITS ---
HPI - SOB/Dyspnea General: Chief Complaint: Shortness of Breath/Dyspnea Stated Complaint: sob Time Seen by Provider: 03/17/23 15:22 Source: patient Mode of arrival: EMS History of Present Illness: HPI Narrative: 79-year-old male presents emergency room complaining of shortness of breath. He was seen earlier today and he was discharged home sent home on doxycycline and a steroid taper and nebulizers. Complained of increasing shortness of breath at time of discharge she states she is feeling much better. On arrival here this time he is febrile. He mentioned he has been having some dysuria which she did not mention earlier but he states that it got better when he started taking some Azo's. Has not been on any antibiotics for it. Worsening cough and shortness of breath although it is resolved now after arriving here he was treated with a nebulizer in route. He is satting 93 to 94% on 2 L which is his typical oxygen supplement. He was tested for COVID earlier today which was negative and his chest x-ray was unremarkable MD elicited complaint: shortness of breath and cough Pertinent past history: COPD Timing: intermittent Exacerbating factors: exertion and coughing Relieving factors: nothing Known history of: COPD Associated symptoms: Reports fever(s); Deny abdominal pain, chest congestion, chest pain, cough, diaphoresis, dizziness, extremity pain, hemoptysis, lightheadedness, myalgias, nausea, orthopnea, palpitations, paresthesias, polydipsia, polyuria, rash, sense of impending doom, syncope or vomiting Treatment prior to arrival: oxygen and bronchodilator Related Data: Home oxygen amount: 2 liters Review of Systems Const: Reports: fever(s) and chills; Denies: diaphoresis Card: Denies: chest pain, palpitations, lightheadedness, syncope or orthopnea Resp: Reports: dyspnea, non-productive cough and wheezing; Denies: hemoptysis or chest congestion GI: Denies: abdominal pain, nausea or vomiting : Reports: dysuria; Denies: flank pain, urinary frequency or urinary urgency Musc: Denies: extremity pain Skin/Breast: Denies: rash or pruritus Neuro: Denies: dizziness Endo: Denies: polyuria or polydipsia PFS ED PFSH: Medical History Anxiety COPD (chronic obstructive pulmonary disease) Diastolic congestive heart failure History of CVA (cerebrovascular accident) History of seizure disorder History of seizures Hyperlipidemia Hypertension Prostate CA Status post radiation Pulmonary hypertension Surgical History History of cataract surgery History of excision of lesion L neck History of tonsillectomy Family History Mother , 98, healthy No problems noted. Father CAD (coronary artery disease) Social History Smoking and tobacco status: former smoker Quit status (tobacco): has quit using tobacco Year quit tobacco: 20 years ago Second hand smoke exposure: No Alcohol intake: never Substance/Drug Use: never Lives independently: Yes Household members: none Physical Exam Const: GENERAL APPEARANCE: cooperative ORIENTATION/CONSCIOUSNESS: Yes awake, Yes oriented to person, Yes oriented to place and Yes oriented to time HENMT: COMMON NORMALS: normocephalic, atraumatic and hearing grossly normal bilaterally HEAD & SCALP: normocephalic and atraumatic Resp: EFFORT & INSPECTION: Yes tachypneic, Yes pursed lip breathing, Yes uses accessory muscles and Yes prolonged expiratory phase AUSCULTATION: wheezes Cardio: COMMON NORMALS: regular rhythm and No murmurs present (Cardio) RATE: tachycardic RHYTHM: regular rhythm GI: COMMON NORMALS: Soft to palpation and No hepatosplenomegaly present AUSCULTATION: Yes normoactive bowel sounds PALPATION: Yes Soft to palpation, No Tenderness to palpation present (GI), No Guarding due to palpation present (GI) and Yes No hepatosplenomegaly present Extremity: COMMON NORMALS: normal to inspection, capillary refill normal, no clubbing, cyanosis or edema, no calf tenderness and no pedal edema Neuro: SENSORIUM/ORIENTATION: Yes oriented to person, Yes oriented to place and Yes oriented to time Skin: COMMON NORMALS: no rashes or lesions noted GENERAL SKIN EXAM: no rashes or lesions noted Course Vital Signs: Vital signs: Vital Signs Temperature 98.4 F 03/21/23 04:00 Pulse Rate 84 03/21/23 06:01 Respiratory Rate 18 03/21/23 04:00 Blood Pressure 142/81 03/21/23 04:00 Pulse Oximetry 96 03/21/23 04:00 Oxygen Delivery Me thod Nasal Cannula 03/21/23 04:00 Oxygen Flow Rate 4 03/20/23 20:00 MDM - SOB/Dyspnea Medical Decision Making Patient returns now having a fever and is hypotensive given fluids started antibiotics cultures done. Admit for sepsis COPD exacerbation. No evidence of infiltrate chest x-ray. Will admit prophylactic antibiotics started. Patient has leukopenia and elevated lactic acid. Medical Records I reviewed the patient's medical records. Lab Data I reviewed the patient's lab results. 03/21/23 04:10 03/21/23 04:10 Labs/Radiology: Radiology Impressions Abdomen/Pelvis CT 03/17/23 18:38 IMPRESSION: 1. There is a nonobstructing 3 mm stone in the inferior pole of the left kidney. 2. No hydronephrosis or hydroureter. 3. No perinephric fat stranding to suggest pyelonephritis. Chest X-Ray 03/17/23 20:57 IMPRESSION: Unremarkable central venous catheter position. Chest CTA 03/19/23 17:09 IMPRESSION: Small bilateral pleural effusions. Emphysema. Asbestos related pleural disease. Ascending aortic aneurysm measuring 4.6 cm. Symmetric [id number] bilateral lower lobe atelectasis and milder dependent atelectasis in upper lobes. No evident pulmonary embolic disease. 8 mm nodule difficult to exclude at posterior right lung apex; for patients at low risk (minimal or absent history of smoking and of other known risk factors), recommend CT Chest at 6-12 months, then consider CT Chest at 18-24 months. For patients at high risk (history of smoking or of other known risk factors), recommend CT Chest at 6-12 months, then CT Chest at 18-24 months. (Reference: Kev) REFERENCES: Kev H, et al. Guidelines for Management of Incidental Pulmonary Nodules Detected on CT Images: From the Fleischner Society 2017. Radiology. 2017;284(1):228-243. Laboratory Results Estimat Average Glucose 100 03/17/23 09:18 Hemoglobin A1c 5.1 % (4.0-6.0) 03/17/23 09:18 Lactic Acid 4.3 mmol/L (0.5-2.2) H* 03/17/23 16:13 TSH 1.51 uIU/mL (0.27-4.20) 03/17/23 09:18 Urine Color [place] (Yellow) A 03/17/23 18:20 Urine Appearance Cloudy (CLEAR) A 03/17/23 18:20 Urine pH 5 (5-7) 03/17/23 18:20 Ur Specific [place] 1.015 (1.005-1.030) 03/17/23 18:20 Urine Protein 2+ (Negative) H 03/17/23 18:20 Urine Glucose (UA) Norm (Normal) 03/17/23 18:20 Urine Ketones Negative (Negative) 03/17/23 18:20 Urine Blood 2+ (Negative) H 03/17/23 18:20 Urine Nitrate Positive (Negative) H 03/17/23 18:20 Urine Bilirubin 2+ (Negative) H 03/17/23 18:20 Urine Urobilinogen 4 mg/dL (Negative) H 03/17/23 18:20 Ur Leukocyte Esterase 2+ (Negative) H 03/17/23 18:20 Urine RBC 0-4 /hpf (0-2) H 03/17/23 18:20 Urine WBC >100 /hpf (0-5) H 03/17/23 18:20 Ur Squamous Epith Cells 0-4 /hpf (0-5) H 03/17/23 18:20 Amorphous Sediment Not Reportable 03/17/23 18:20 Urine Bacteria 4+ /hpf (NONE) H 03/17/23 18:20 All radiology interpretation(s) finalized by discharge Discharge Plan Discharge Patient Disposition: Admitted As Inpatient Admit Provider: Essence Perez Clinical Impression: Septic shock, COPD exacerbation Condition: Stable Coding Level of Care Code ED [employer] for Aldair Pino
[2023-03-17] MEDS: cefTRIAXone 1,000 MG in sodium chloride 0.9% (plus) 50 ML 100 MG IV (16:15)
[2023-03-17] MEDS: ipratropium-albuterol 3 mL Neb INHALATION (16:31)
[2023-03-17] MEDS: sodium chloride 0.9% 1,000 ML 999 ML IV (16:40)
[2023-03-17 16:55] LABS: Lactic Sepsis W/Reflex 4.3 mmol/L (0.5-2.2)
[2023-03-17] MEDS: azithromycin 500 MG in sodium chloride 0.9% 250 ML 250 MG IV (17:53)
[2023-03-17 18:28] LABS: Reflex Lactate Order REFLEX LACTIC ORDERD
[2023-03-17 18:34] LABS: Add Urine Culture? Yes; Add Urine Microscopic? YES; Bacteria Urine 4+ /hpf; Bilirubin Urine 2+ (Negative); Blood Urine 2+ (Negative); Glucose Urine UA Norm (Normal); Ketones Urine Negative (Negative); Leukocyte Esterase Urine 2+ (Negative); Nitrate Urine Positive (Negative); Protein Urine 2+ (Negative); RBC Urine 0-4 /hpf (0-2); Specific Gravity, Urine 1.015 (1.005-1.030); Squamous Epithelial Cell Urine 0-4 /hpf (0-5); Urine Appearance Cloudy (CLEAR); Urine Color Orange (Yellow); Urobilinogen Urine 4 mg/dL (Negative); WBC Urine >100 /hpf (0-5); pH Urine 5 (5-7)
--- NOTE | 2023-03-17 18:37 | PM.HP ---
Providers/Chief Complaint Admitting Physician: Essence Perez MD Primary Care Provider: Marlin Jesus NP Chief Complaint: sob History of Present Illness Alessandro Duran is a 87 year old male with history of COPD, was seen in the ER earlier for shortness of breath, he was given doxycycline and tapering steroid regimen however he presented back with chief complaint of fever in the ER he has been diagnosed with sepsis, with low blood pressure responded very well to septic bolus, lactic acid is high he is febrile tachycardic, At the time of evaluation patient is stating that he is feeling slightly better, his blood pressure was still low, I did tell the nurse that this patient might need ICU if blood pressures remains low, patient was able to answer my questions, family was at the bedside, patient is stating that he does not eat great at the [facility] apartment at [place], no recent falls, no chest pain confusion Patient is stating that he was supposed to use 2 to 3 L of oxygen which she has not been using for last few weeks when out and wanted to change the oxygen company His main concern was shortness of breath for which she was given steroids and antibiotics earlier when he was discharged from the ER. Review of Systems Eyes: Denies: change in vision ENMT: Denies: throat pain Card: Denies: chest pain Resp: Reports: dyspnea GI: Reports: nausea : Denies: flank pain Musc: Denies: neck pain Skin/Breast: Denies: rash Neuro: Denies: headache(s) Psych: Reports: anxiety Endo: Denies: polyuria Danny/Lymph: Denies: easy bruising Medications/Allergies Home Medications Medication Instructions Recorded Confirmed Last Taken Type amlodipine 5 mg tablet 5 mg PO DAILY 11/29/19 03/18/23 03/16/23 History aspirin 81 mg chewable tablet 81 mg PO QAM 11/29/19 03/18/23 03/16/23 History furosemide 20 mg tablet 20 mg PO DAILY 11/29/19 03/18/23 03/16/23 History gemfibrozil 600 mg tablet 600 mg PO BID 11/29/19 03/18/23 03/16/23 History hydralazine 10 mg tablet 5 mg PO TID 11/29/19 03/18/23 03/16/23 History losartan 100 mg tablet 100 mg PO DAILY 06/02/0903/18/23 03/16/23 History metoprolol tartrate 100 mg tablet 100 mg PO BID 11/29/19 03/18/23 03/16/23 History oxcarbazepine 300 mg tablet 300 mg PO BID 11/29/19 03/18/23 03/16/23 History potassium chloride 20 mEq 20 meq PO DAILY 11/29/19 03/18/23 03/16/23 History tablet,extended release(part/cryst) [id number]-dhzvf 300 mcg-K 60 1 tab PO DAILY 12/06/19 03/18/23 03/16/23 History mcg-lycop 600 mcg-lutein 300 mcg tablet (Centrum Silver Men) budesonide-formoterol HFA 80 2 puff inhalation BID #10.2 grams 03/17/23 03/18/23 03/17/23 Rx mcg-4.5 mcg/actuation aerosol new rx pt inhaler (Symbicort) just start doxycycline hyclate 100 mg capsule 100 mg PO BID 10 days #20 caps 03/17/23 03/18/23 03/17/23 Rx got 1 dose in ipratropium 0.5 mg-albuterol 3 mg 3 ml inhalation Q4H PRN shortness 03/17/23 03/18/23 Unknown Rx (2.5 mg base)/3 mL nebulization of breath or wheezing #90 mL soln acetaminophen 500 mg tablet 1,000 mg PO Q6H PRN Pain 03/18/23 03/18/23 Unknown History albuterol sulfate 90 mcg/actuation 2 puff inhalation QID PRN 03/18/23 03/18/23 Unknown History aerosol inhaler Shortness Of Breath latanoprost 0.005 % eye drops 1 drp ophthalmic (eye) BEDTIME PRN 03/18/23 03/18/23 Unknown History unknown prednisone 20 mg tablet See Rx Instructions .Route .COMPLEX 03/18/23 03/18/23 Unknown History Allergies Allergy/AdvReac Type Severity Reaction Status Date / Time amoxicillin Allergy Unknown Verified 03/17/23 09:03 PFSH Acute PFSH: Medical History (Updated 03/18/23 @ 10:37 by Essence Perez MD) Anxiety COPD (chronic obstructive pulmonary disease) Diastolic congestive heart failure History of CVA (cerebrovascular accident) History of seizure disorder History of seizures Hyperlipidemia Hypertension Prostate CA Status post radiation Pulmonary hypertension Surgical History History of cataract surgery History of excision of lesion L neck History of tonsillectomy Family History Mother , 98, healthy No problems noted. Father CAD (coronary artery disease) Social History Smoking and tobacco status: former smoker Quit status (tobacco): has quit using tobacco Year quit tobacco: 20 years ago Second hand smoke exposure: No Alcohol intake: never Substance/Drug Use: never Lives independently: Yes Household members: none Vitals/I&O/Wt Last Vital Signs Temp 101.0 F H 03/17/23 15:24 Pulse 105 H 03/17/23 16:35 Resp 16 03/17/23 16:29 BP 99/60 03/17/23 15:24 Pulse Ox 91 03/17/23 16:29 O2 Del Method Nasal Cannula 03/17/23 18:21 O2 Flow Rate 2 03/17/23 16:29 03/17/23 03/17/23 03/17/23 06:59 14:59 22:59 Intake Total 1050 / 1050 Balance 1050 / 1050 Weight last 48 hrs Weight 58.967 kg Physical Exam Narrative: Sepsis related exam No skin mottling Low blood pressure No confusion Currently on oxygen Patient is showing signs of edema in lower extremities Otherwise malnourished No active crackles GCS 15 Currently on 4 L nasal cannula Abdomen soft Data 03/18/23 02:43 03/18/23 02:43 Micro: Microbiology 03/17/23 16:19 Blood Culture - Preliminary Blood SPECIMEN COLLECTED 03/17/23 16:13 Blood Culture - Preliminary Blood SPECIMEN COLLECTED A&P Assessment and plan (1) Acute exacerbation of chronic obstructive airways disease: (2) Septic shock: (3) COPD exacerbation: (4) Pulmonary hypertension: (5) Diastolic congestive heart failure: (6) History of seizure disorder: (7) UTI (urinary tract infection): Plan Sepsis related to UTI septic shock Pyelonephritis Require CT abdomen pelvis without contrast Septic bolus given Requested blood cultures urine culture Sepsis criteria met with fever tachycardia high lactic acid Upper respiratory tract infection patient has received antibiotics in the ER We will request pulm culture COPD exacerbation with upper respite tract infection Continue Zosyn at this point We will need home oxygen evaluation Hypotension related to sepsis: Hold antihypertensive regimen Responded very well to IV fluid Monitor closely Consistent carb diet for type 2 diabetes Check A1c level Continue sliding scale and Lantus Attestations Medical Necessity Statement*: More than 2 midnights anticipated Coding Level of Care Code 89786 Diagnoses Acute exacerbation of chronic obstructive airways disease J44.1 Septic shock A41.9; R65.21 COPD exacerbation J44.1 Pulmonary hypertension I27.20 Diastolic congestive heart failure I50.30 History of seizure disorder Z86.69 UTI (urinary tract infection) N39.0
--- NOTE | 2023-03-17 18:38 | CTR_ITS ---
PROCEDURE INFORMATION: Exam: CT Abdomen And Pelvis Without Contrast Exam date and time: 03/17/2023 7:58 PM Age: 87 years old Clinical indication: Pain; Other: Pyelo TECHNIQUE: Imaging protocol: Computed tomography of the abdomen and pelvis without contrast. Radiation optimization: All CT scans at this facility use at least one of these dose optimization techniques: automated exposure control; mA and/or kV adjustment per patient size (includes targeted exams where dose is matched to clinical indication); or iterative reconstruction. REPORTING DATA: Count of CT and Cardiac NM exams in prior 12 months: This patient has received 0 known CTs and 0 known cardiac nuclear medicine studies in the 12 months prior to the current study. COMPARISON: CR XR chest 1V portable [id number] 03/17/2023 3:34 PM RADIATION DOSE METRICS: Total DLP (mGy-cm): 371 FINDINGS: Lungs: Atelectatic changes in the lung bases posteriorly. Liver: Normal. No mass. Gallbladder and bile ducts: Calcified stone in the gallbladder. Pancreas: Normal. No ductal dilation. Spleen: Normal. No splenomegaly. Adrenal glands: Normal. No mass. Kidneys and ureters: There is a nonobstructing 3 mm stone in the inferior pole of the left kidney. No hydronephrosis or hydroureter. No perinephric fat stranding to suggest pyelonephritis. Stomach and bowel: Unremarkable. No obstruction. No mucosal thickening. Appendix: No evidence of appendicitis. Intraperitoneal space: Unremarkable. No free air. No significant fluid collection. Vasculature: Severe atherosclerotic disease of the abdominal aorta. Lymph nodes: Unremarkable. No enlarged lymph nodes. Urinary bladder: Unremarkable as visualized. Reproductive: Unremarkable as visualized. Bones/joints: Unremarkable. No acute fracture. Soft tissues: Unremarkable. CT/CT abdomen pelvis con [id number] IMPRESSION: 1. There is a nonobstructing 3 mm stone in the inferior pole of the left kidney. 2. No hydronephrosis or hydroureter. 3. No perinephric fat stranding to suggest pyelonephritis.
[2023-03-17] MEDS: piperacillin-tazobactam 3.375 GM in sodium chloride 0.9% (plus) 50 ML IV (19:13)
[2023-03-17] MEDS: sodium chloride 0.9% 1,000 ML 100 ML IV (19:13)
--- NOTE | 2023-03-17 19:21 | PC.NURSE ---
Dr. Perez requested that patient's blood pressure be taken. Maira FULTON took patient's blood pressure which was 77/43. Dr Perez notified. Dr. Perez stated to continue to monitor patient and he may need to be transferred. Shelli FULTON notified.
[2023-03-17] MEDS: hydrocortisone 100 mg/2 mL SDV IVP (19:29)
[2023-03-17 19:31] LABS: Thyroid Stimulating Hormone 1.51 uIU/mL (0.27-4.20)
[2023-03-17 19:45] LABS: Glucose Point of Care 135 mg/dL (70-110)
[2023-03-17 19:47] LABS: Estmated Average Glucose 100; Hemoglobin A1C 5.1 % (4.0-6.0)
[2023-03-17 19:54] LABS: Lactic Acid level (Lactate) 3.9 mmol/L (0.5-2.2)
--- NOTE | 2023-03-17 20:03 | PC.NURSE ---
This nurse came on shift and began taking report. During report, another nurse came and stated that the pt's blood pressure was 84/39 at [address] Perez had been made aware. Per dayshift nurse, Dr Perez stated that if pt's blood pressure continued to drop the pt would require transfer to the ICU. This nurse finished taking report and checked on the pt, pt was laying in bed conversing with family. This nurse asked SOUND CONTROLLER to airport skilled maintenance supervisor continuous vitals. Pt bp was 72/48 at 1928. This nurse talked to Dr Bravo and asked if he would like to move forward with transferring the pt to ICU per Dr Perez's verbal order. Dr Bravo ordered 500ml bolus. Bolus started by this nurse, pt placed in trendelenburg position, bp rechecked at 1934, 80/54. Bp taken again at 1942, 77/33. Dr Bravo at bedside at this time, gave verbal order to transfer pt to ICU. This nurse called report to ICU nurse Shetty while charge nurse and SOUND CONTROLLER took pt to CT and then ICU. All belongings went with pt.
--- NOTE | 2023-03-17 20:15 | P.PNCC_ITS ---
Critical Care Event Note The high probability of a clinically significant, sudden or life threatening deterioration of the patient's [] system(s) required my full and direct attention, intervention and personal management. The critical care time is as shown. This time is in addition to time spent performing any reported procedures but includes the following: [x] Data and vital sign review and interpretation [x] Patient assessment, examination and intervention [x] Documentation [x] Medication orders and management Critical Care Time Code activated: No Critical Care Time (min): 40 Additional information about critical care time: - I was paged by nursing staff that patient was on MedSurg, admitted for UTI, he was alert responsive, but had a blood pressure 70s over 40s -Examined patient at roughly 7:30 PM -He is alert to person, to place, not to time he is a bit encephalopathic and follow commands -Looks pale, bilateral DP PT pulses are diminished, cap refill greater than 4 seconds, both lower extremities appear pale, instructed nursing staff to give him a fluid bolus, -Looked at his urine, looks like he is a nikolas UTI, I am worried about possible obstructive uropathy, advised nursing staff to conduct a CAT scan and then from there to the ICU -I advised family members at bedside that currently patient's status it is becoming critical, he is becoming in my opinion should septic shock, -My plan is to broaden the antibiotic coverage start him on vancomycin in addition to the Zosyn he is receiving -Continue fluid boluses -He will likely require pressors, which he can start on the ICU they are agreeable -Further blood work ordered as he has not had blood work since early this morning -Follows lactic acids -We will place central access depending on his clinical progress -Patient family voiced understanding, all questions answered -Patient was reexamined in the ICU -Maps remain less than 65, he is alert awake, tachycardic, heart rates in the 110s, normal sinus rhythm, on 3 L, following commands discussed risks and benefits of central line placement, agreed to place central line, x-ray confirms position -I discussed with patient, that he is in septic shock, he is a CAT scan that is pending, think he has multiorgan failure with acute renal failure elevated creatinine from the septic shock we will continue fluids, placed on pressors, he is agreeable -I discussed with family that I am still waiting at this CT abdomen and pelvis results -Currently patient is in septic shock, requiring pressors, is on fluids, I believe he is developing acute renal failure with creatinine up to 1.4, lactic acid is up to 3.9, troponin up to 72, having NSTEMI, evidence of early multiorgan failure -He also has hypomagnesemia we will replace IV -Discussed goals of cares, with family for now want him to remain a full code, patient's son is his healthcare power of mergers and acquisitions attorney, agrees for patient to be full code, however he wants the ability to stop resuscitation events and [facility], they do want us to resuscitate him definitely -ct below - CT/CT abdomen pelvis wo con [id number] IMPRESSION: 1. ? There is a nonobstructing 3 mm stone in the inferior pole of the left kidney. 2. ? No hydronephrosis or hydroureter. 3. ? No perinephric fat stranding to suggest pyelonephritis. Coding Level of Care Code Acute Code for Aldair Pino
[2023-03-17] MEDS: sodium chloride 0.9% 500 ML 999 ML IV (20:17)
[2023-03-17 20:35] LABS: Basophils % 0.1 %; Hematocrit 27.7 % (37-53); Lymphocytes # 0.2 10^3/uL (0.8-4.8); Mean Corpuscular HGB Conc 32.9 g/dL (30-55); Mean Corpuscular Volume 91.4 fl (82-101); Mean Platelet Volume 8.8 fL (7.4-10.4); Monocytes # 0.3 10^3/uL (0.2-0.9); Monocytes % 3.4 %; Neutrophils # 7.33 10^3/uL (1.8-7.7); Neutrophils % 91.5 %; Nucleated Red Blood Cells % 0 %; Platelet Count 172 10^3/cmm (157-399); Red Blood Count 3.03 10^6/uL (3.85-5.65); White Blood Count 8.01 10^3/uL (3.29-11.43)
[2023-03-17] MEDS: morphine 4 mg/mL SDV 1 mL 2 MG IVP (20:39)
[2023-03-17] MEDS: sodium chloride 0.9% 1,000 ML 125 ML IV (20:41)
--- NOTE | 2023-03-17 20:57 | XRR_ITS ---
PROCEDURE INFORMATION: Exam: XR Chest Exam date and time: 03/17/2023 9:07 PM Age: 87 years old Clinical indication: Device placement; Other: Central line; Additional info: Central line confirmation TECHNIQUE: Imaging protocol: Radiologic exam of the chest. Views: 1 view. COMPARISON: CR XR chest 1V portable [id number] 03/17/2023 3:34 PM FINDINGS: Tubes, catheters and devices: Central venous catheter terminates in the distal superior vena cava. Lungs: Emphysematous lung changes. Query cephalization of the pulmonary vasculature. Negative for pulmonary consolidation. Pleural spaces: Unremarkable. No pleural effusion. No pneumothorax. Heart/Mediastinum: Unremarkable. No cardiomegaly. Bones/joints: Unremarkable. XR/XR chest 1V portable [id number] IMPRESSION: Unremarkable central venous catheter position.
[2023-03-17 20:58] LABS: Lactic Sepsis W/Reflex 3.9 mmol/L (0.5-2.2)
[2023-03-17 20:59] LABS: Slide Review Slide Review Perform; Troponin(5th) Baseline 72 ng/L (0-15)
[2023-03-17 21:08] LABS: Alanine Aminotransferase 21 U/L (0-41); Alkaline Phosphatase 52 U/L (40-130); Aspartate Amino Transferase 62 U/L (0-40); Blood Urea Nitrogen 28 mg/dL (8-23); Calcium 7.5 mg/dL (8.5-10.5); Carbon Dioxide 20 mmol/L (22-29); Chloride 107 mmol/L (98-107); Glucose 116 mg/dL (65-115); Magnesium 1.3 mg/dL (1.7-2.3); Osmolality Calculated 296 mOsm/kg (285-295); Sodium 140 mmol/L (136-145); Total Bilirubin 0.3 mg/dL (0.15-1.2)
[2023-03-17 21:22] LABS: Anion Gap 16.7 (5-19); Potassium 3.7 mmol/L (3.5-5.1)
--- NOTE | 2023-03-17 21:44 | PC.PHAR ---
Pharmacokinetic dosing service Date: 03/17/23 Time: 2144 Objective: Patient: Alessandro Duran Floor: ICU-1 Age: 87 yo Serum creatinine: 1.4 mg/dL Height: 67.0 Inches Weight (kg): 58.967 Diagnosis: Relevant medical/social history: Cultures and sensitivities: Other labs: Assessment: IBW (kg): 66.10 Dosing wt(kg): 58.967 Estimated Creatinine clearance (ml/min): 30.4 CRCL method: Cockcroft and Gault using ibw(default). Drug selected: Vancomycin Loading dose (mg): 0 Vd (liters): 53.1 (factor used: 0.9 L/kg) Nima (hr-1): 0.030 Half life (hrs): 23.10 Recommended dose: 750 mg Interval: 24 hrs Infusion time (hrs): 1.5 Predicted peak (mcg/mL): 26.9 Predicted trough (mcg/mL): 13.70 Total body weight is being used for vancomycin dosing. Renal function is stable [ ] /unstable [ ] Recommendations: Give Vancomycin 750 mg q 24 hrs with an expected Cpeak of 26.9 mcg/ml and an expected Ctrough of 13.70 mcg/ml Renal dosing of other antibiotics (review renal dosing of other medications and list guidelines here): Thank you for the consult, will continue to follow. Signature: Chetna Dunn [facility]
--- NOTE | 2023-03-17 22:07 | ANES.PROC ---
Anesthesia Procedures Procedure/Date: 03/17/23 Central Venous Insert: Time Out Performed: Yes Consent: requested by attending/covering physician, from patient, risks and benefits reviewed and patient agrees to proceed Central Line: New Anesthesia monitors: pulse oximetry, EKG, BP cuff and oxygen Vein cannulated: right internal jugular Ultrasound used: to identify patency to vessel and to visualize needle entry to vein Post procedure: Obtain Chest X-Ray Additional Comments: With needle on third right internal jugular vein, aspirated dark red nonpulsatile blood, placed guidewire over, ultrasound confirmed placement of guidewire into right internal jugular vein X-ray confirms position of central line in the right internal jugular vein, just above the cavoatrial junction
[2023-03-17] MEDS: vancomycin 750 MG in sodium chloride 0.9% 250 ML 250 MG IV (22:09)
[2023-03-17 22:18] LABS: Reflex Lactate Order REFLEX LACTIC ORDERD
[2023-03-17] MEDS: magnesium sulfate premix 4 GM/100 ML PREMIX IV (22:42)
[2023-03-17 22:48] LABS: Troponin 5 2HR 72.54 ng/L (0-15)
[2023-03-17 22:49] LABS: Troponin 5 2HR Delta 0.54 ABS# (0-10)
[2023-03-17 23:14] LABS: Lactic Acid level (Lactate) 2.2 mmol/L (0.5-2.2)
[2023-03-18] VITALS (203 sets, daily range): BP systolic 85–153; BP diastolic 49–108; PULSE 79–126; RESP 16–36; TEMP 36.6–39.7; O2SAT 78–100
--- NOTE | 2023-03-18 01:46 | PC.NURSE ---
Patient arrived on unit 2009 with hypotension. Unable to assess BP in route, BP on arrival with a MAP of 59. Hospitalist requested to allow 500ml bolus to finish before beginning any levo. Hospitalist arrived on unit and placed central line, confirmation by Xray. Hospitalist later notified that patient was beginning to have bilateral crackles in lung bases. Order to begin levo and reduce fluids to 50ml/hr received. Fluids paused while Vanc was running to prevent overload. Patient resting comfortably in bed. Daughter at bedside overnight per Hospitalist approval. Levo titrated to maintain MAP>65
[2023-03-18] MEDS: piperacillin-tazobactam 3.375 GM in sodium chloride 0.9% (plus) 50 ML IV ×3 (02:42→17:13)
[2023-03-18] MEDS: acetaminophen 650 mg/20.3 mL UDC PO ×2 (02:53→20:49)
[2023-03-18 03:00] LABS: Basophils % 0.2 %; Hematocrit 31.2 % (37-53); Lymphocytes # 0.2 10^3/uL (0.8-4.8); Lymphocytes % 1.2 %; Mean Corpuscular HGB Conc 32.4 g/dL (30-55); Mean Corpuscular Hemoglobin 30.1 pg (27-33); Mean Corpuscular Volume 92.9 fl (82-101); Mean Platelet Volume 8.6 fL (7.4-10.4); Monocytes # 0.4 10^3/uL (0.2-0.9); Monocytes % 2.2 %; Neutrophils % 95.6 %; Nucleated Red Blood Cells % 0 %; Platelet Count 182 10^3/cmm (157-399); Red Blood Count 3.36 10^6/uL (3.85-5.65); Red Cell Distribution Width 13.1 % (12.1-15.1); White Blood Count 16.21 10^3/uL (3.29-11.43)
[2023-03-18 03:18] LABS: Troponin 5 6HR 96.06 ng/L (0-15)
[2023-03-18 03:19] LABS: Anion Gap 16.1 (5-19); Blood Urea Nitrogen 30 mg/dL (8-23); C Reactive Protein 85.2 mg/L (0.0-4.9); Calcium 7.7 mg/dL (8.5-10.5); Carbon Dioxide 19 mmol/L (22-29); Chloride 107 mmol/L (98-107); Glucose 133 mg/dL (65-115); Magnesium 2.7 mg/dL (1.7-2.3); Osmolality Calculated 294 mOsm/kg (285-295); Phosphorus 3.4 mg/dL (2.5-4.5); Potassium 4.1 mmol/L (3.5-5.1); Sodium 138 mmol/L (136-145)
[2023-03-18 03:22] LABS: Troponin 5 6HR Delta 24.06 ng/L (0-12)
[2023-03-18 03:27] LABS: Slide Review Slide Review Perform
--- NOTE | 2023-03-18 04:14 | PC.NURSE ---
Patient became febrile around 0230 this morning. Awoke tachycardic with complaints of aches. Hospitalist notified of temp of 102.3 and order for 650mg tylenol received. Wet rags placed on patient's head and blankets removed. Ice chips encouraged. Temps continued to climb to 103.3 through 0400. Hospitalist notified of changes.
[2023-03-18] MEDS: ibuprofen 200 mg Tablet 400 MG PO (05:05)
[2023-03-18] MEDS: hydrocortisone 100 mg/2 mL SDV IVP (08:18)
--- NOTE | 2023-03-18 08:38 | PC.PHAR ---
pts family verified pts medications-pts family states the pt got one dose in of doxcycline hyclate 100mg bid rx filled 03/17/23 10d/s-states the pt hasnt started the titrating dose of prednisone filled 03/17/23 7d/s or the ipratropium-albuterol prn filled 03/17/23-pts family states the symbicort 80-4.5mcg is a new inhaler-pts family states the pt uses latanoprost prn-pts family states the pt takes lasix 20mg qam and one at noon prn-rx filled for 20mg bid-notes are made in the pharmacy comments
[2023-03-18] MEDS: ascorbic acid 500 mg Tablet PO (08:56)
[2023-03-18] MEDS: sennosides-docusate Tablet 1 TAB PO (08:56)
--- NOTE | 2023-03-18 10:38 | PM.PN ---
Subjective Subjective: This morning patient is stating that he is feeling better Still on Levophed at 4 mics He was transferred to ICU overnight Family stayed at the bedside We will resume his antiepileptic medication Hold antihypertensive regimen High-grade fever Kidney stone nonobstructing 3 mm left renal pole Vitals/I&O/Wt Last Vital Signs Temp 99 F 03/18/23 07:52 Pulse 80 03/18/23 10:00 Resp 22 H 03/18/23 09:35 BP 108/65 03/18/23 09:40 Pulse Ox 95 03/18/23 09:40 O2 Del Method Nasal Cannula 03/18/23 08:00 O2 Flow Rate 3 03/18/23 08:00 03/17/23 03/18/23 03/18/23 22:59 06:59 14:59 Intake Total 1648.591 / 1648.591 540.208 / 2188.799 Output Total 100 / 100 750 / 850 Balance 1548.591 / 1548.591 -209.792 / 1338.799 Weight last 48 hrs Weight 58.967 kg Physical Exam Narrative: Dorsum edema 1+ Awake and alert GCS 15 Currently on 4 L Currently on Levophed at 4 mics Nonfocal neuro exam Family is at the bedside S1, S2 Abdomen soft No active crackles or wheezing Urinary Catheter Management: Grewal: Cath Placed During This Visit: yes Reason for Continuing Indwelling Catheter: Accurate Measurement of Urinary Output in Critically Ill Patients Urinary Catheter Date of Insertion: 03/17/23 Urinary Catheter Time of Insertion: 21:00 Data 03/18/23 02:43 03/18/23 02:43 Micro: Microbiology 03/17/23 18:20 Urine Culture - Preliminary Urine,Clean Catch Gram Negative Rods 03/17/23 16:19 Blood Culture - Preliminary Blood SPECIMEN COLLECTED 03/17/23 16:13 Blood Culture - Preliminary Blood SPECIMEN COLLECTED A&P Assessment and plan (1) UTI (urinary tract infection): (2) Acute exacerbation of chronic obstructive airways disease: (3) Septic shock: (4) COPD exacerbation: (5) Pulmonary hypertension: (6) Diastolic congestive heart failure: (7) History of seizure disorder: (8) Hypertension: Plan Septic shock Lactic acidemia improved Currently on Levophed at 4 mics Discontinue IV steroids We will follow-up with urine and blood culture Source seem to be UTI, if patient remains febrile after 48 hours he might need urology intervention but this seems to be a nonobstructing renal stone Central line was placed 03/17 Diastolic CHF exacerbation Secondary to excessive fluid usage I will give him small dose of IV Lasix and discontinue fluids later in the day Monitor closely Acute COPD exacerbation Was using 3 L of oxygen, currently fluctuating between 3 to 4 L Concern for upper restaurant tract infection Chest x-ray unremarkable Full code Speech eval requested History of seizures: Continue Trileptal Consistent carb diet with sliding scale Attestations Medical Necessity Statement*: Continue ICU management Diagnoses UTI (urinary tract infection) N39.0 Acute exacerbation of chronic obstructive airways disease J44.1 Septic shock A41.9; R65.21 COPD exacerbation J44.1 Pulmonary hypertension I27.20 Diastolic congestive heart failure I50.30 History of seizure disorder Z86.69 Hypertension I10
--- NOTE | 2023-03-18 10:45 | USCV_ITS ---
Alessandro Duran Age: 87 Gender: M : 1935 Exam Date: 03/18/2023 12:32 Ordering Phys: Essence Perez MD Technologist: Lewis Tapia [place] [facility] [place]: ? ef BP: 123 / 69 HR: 104 Rhythm: Sinus Technical Quality: Adequate MEASUREMENTS (Male / Female) Normal Values 2D ECHO LV Diastolic Diameter PLAX 4.3 cm 4.2 - 5.9 / 3.9 - 5.3 cm LV Systolic Diameter PLAX 2.4 cm IVS Diastolic Thickness 1.1 cm 0.6 - 1.0 / 0.6 - 0.9 cm IVS Systolic Thickness 1.6 cm LVPW Diastolic Thickness 1.1 cm 0.6 - 1.0 / 0.6 - 0.9 cm LVPW Systolic Thickness 1.3 cm LVOT Diameter 2.0 cm LV Ejection Fraction 2D Teich 75.7 % LV Ejection Fraction MOD 2C 74.9 % LV Ejection Fraction 2C AL 75.1 % LA Diameter 3.7 cm M-MODE Aortic Annulus Diameter 3.7 cm LA Ao Ratio MM 1.1 FINDINGS Left Ventricle Normal left ventricular size and systolic function, EF 74 %. Mild left ventricular hypertrophy. No regional wall motion abnormalities. Right Ventricle Possibly of normal size and ejection fraction Right Atrium Possibly of normal Left Atrium Possibly of normal size Mitral Valve No gross abnormality noted Aortic Valve No gross abnormality no Tricuspid Valve No gross abnormality noted Pulmonic Valve Pulmonic valve not well visualized. Pericardium No pericardial effusion. Aorta Mild to moderate diffuse plaques in the descending aorta IVC CONCLUSIONS Normal left ventricular size and systolic function, EF 74 %. Mild left ventricular hypertrophy. No regional wall motion abnormalities. No gross morphologic abnormalities of the valves. There is no pericardial effusion. Mild to moderate diffuse plaques of the descending aorta. Compared to the study from 09/19/2017, no significant changes in the 2D findings. Dr Chyna Hudson MD [facility] (Electronically Signed) Final Date: 18 March 2023 19:07 S
[2023-03-18] MEDS: OXcarbazepine 300 mg Tablet PO ×2 (11:37→17:13)
[2023-03-18] MEDS: FUROsemide 10 mg/mL SDV 2mL 20 MG IVP (11:38)
[2023-03-18] MEDS: acetaminophen 500 mg Tablet PO (13:48)
[2023-03-18 17:33] LABS: NT Pro B Type Natriuretic Pept 10043 pg/mL (0-450)
[2023-03-18] MEDS: vancomycin 750 MG in sodium chloride 0.9% 250 ML 250 MG IV (22:18)
[2023-03-19] VITALS (26 sets, daily range): BP systolic 104–137; BP diastolic 57–88; PULSE 85–115; RESP 16–39; TEMP 36.8–37.2; O2SAT 92–97
[2023-03-19] MEDS: piperacillin-tazobactam 3.375 GM in sodium chloride 0.9% (plus) 50 ML IV ×3 (02:19→17:49)
[2023-03-19 04:38] LABS: Basophils % 0.1 %; Eosinophils # 0.2 10^3/uL (0.0-0.8); Eosinophils % 1.9 %; Hematocrit 31.6 % (37-53); Lymphocytes # 0.6 10^3/uL (0.8-4.8); Lymphocytes % 4.6 %; Mean Corpuscular HGB Conc 32.3 g/dL (30-55); Mean Corpuscular Hemoglobin 29.3 pg (27-33); Mean Corpuscular Volume 90.8 fl (82-101); Mean Platelet Volume 9.2 fL (7.4-10.4); Monocytes # 0.5 10^3/uL (0.2-0.9); Monocytes % 3.8 %; Neutrophils # 11.03 10^3/uL (1.8-7.7); Neutrophils % 88.2 %; Nucleated Red Blood Cells % 0 %; Platelet Count 150 10^3/cmm (157-399); Red Blood Count 3.48 10^6/uL (3.85-5.65); Red Cell Distribution Width 13.2 % (12.1-15.1)
[2023-03-19 04:58] LABS: Anion Gap 12.5 (5-19); Blood Urea Nitrogen 32 mg/dL (8-23); Calcium 7.8 mg/dL (8.5-10.5); Carbon Dioxide 23 mmol/L (22-29); Chloride 112 mmol/L (98-107); Glucose 107 mg/dL (65-115); Osmolality Calculated 305 mOsm/kg (285-295); Potassium 3.5 mmol/L (3.5-5.1); Sodium 144 mmol/L (136-145)
[2023-03-19 05:00] LABS: C Reactive Protein 175.5 mg/L (0.0-4.9); Magnesium 2.3 mg/dL (1.7-2.3)
[2023-03-19 05:05] LABS: Slide Review Slide Review Perform
[2023-03-19] MEDS: acetaminophen 650 mg/20.3 mL UDC PO (05:29)
[2023-03-19] MEDS: OXcarbazepine 300 mg Tablet PO ×2 (07:59→17:49)
[2023-03-19] MEDS: sennosides-docusate Tablet 1 TAB PO (07:59)
[2023-03-19] MEDS: ascorbic acid 500 mg Tablet PO (07:59)
[2023-03-19 08:29] LABS: Glucose Point of Care 118 mg/dL (70-110)
[2023-03-19] MEDS: ipratropium-albuterol 3 mL Neb INHALATION (09:05)
--- NOTE | 2023-03-19 10:03 | P.PN_ITS ---
Subjective Subjective: Pressure is better, tachycardia start metoprolol Discontinue Grewal catheter Transfer out of ICU Add metoprolol Requested PT Afebrile, discontinue vancomycin Continue Zosyn Vitals/I&O/Wt Last Vital Signs Temp 98.9 F 03/19/23 02:00 Pulse 105 H 03/19/23 09:05 Resp 28 H 03/19/23 09:05 BP 124/88 03/19/23 08:00 Pulse Ox 94 03/19/23 09:05 O2 Del Method Nasal Cannula 03/19/23 09:05 O2 Flow Rate 4 03/19/23 09:05 03/18/23 03/19/23 03/19/23 22:59 06:59 14:59 Intake Total 700 / 809.474 250 / 1059.474 Output Total 1100 / 1100 1200 / 2300 Balance -400 / -290.526 -950 / -1240.526 Weight last 48 hrs Weight 58.967 kg Physical Exam Narrative: Patient awake and alert Signs of dehydration improving Lower extremity edema better Grewal catheter with normal color urine Abdomen soft No active crackles Currently on 4 L of oxygen Nonfocal neuro exam GCS 15 Family is at the bedside Urinary Catheter Management: Grewal: Cath Placed During This Visit: yes Reason for Continuing Indwelling Catheter: Accurate Measurement of Urinary Output in Critically Ill Patients Urinary Catheter Date of Insertion: 03/17/23 Urinary Catheter Time of Insertion: 21:00 Data 03/19/23 04:10 03/19/23 04:10 Micro: Microbiology 03/17/23 16:19 Blood Culture - Preliminary Blood NEGATIVE TO DATE 03/17/23 16:13 Blood Culture - Preliminary Blood NEGATIVE TO DATE 03/17/23 18:20 Urine Culture - Preliminary Urine,Clean Catch Gram Negative Rods A&P Assessment and plan (1) UTI (urinary tract infection): (2) Acute exacerbation of chronic obstructive airways disease: (3) Septic shock: (4) COPD exacerbation: (5) Pulmonary hypertension: (6) Diastolic congestive heart failure: (7) History of seizure disorder: Plan Septic shock: Resolved Urine culture showing gram-negative gracy Previous urine culture showed E. coli Continue Zosyn Discontinue vancomycin Afebrile Leukocytosis trending down Diastolic CHF exacerbation We will give very low-dose of Lasix Deconditioning, request PT History of seizure: Continue antiepileptic medication Acute COPD exacerbation: Getting better Currently he is back to his baseline 4 L of oxygen Remove Grewal catheter Discontinue vancomycin Get transferred to [facility] Depending on PT evaluation we will decide whether he is safe to return to his apartment or he would benefit from rehab Consistent carb diet Sinus tachycardia resume metoprolol likely rebound tachycardia Attestations Medical Necessity Statement*: Transfer to [facility] Diagnoses UTI (urinary tract infection) N39.0 Acute exacerbation of chronic obstructive airways disease J44.1 Septic shock A41.9; R65.21 COPD exacerbation J44.1 Pulmonary hypertension I27.20 Diastolic congestive heart failure I50.30 History of seizure disorder Z86.69
[2023-03-19] MEDS: losartan 50 mg Tablet 100 MG PO ×2 (10:37→10:40)
[2023-03-19 10:42] LABS: D Dimer 6.73 ug/mLFEU (0-0.59)
[2023-03-19 10:59] LABS: Glucose Point of Care 107 mg/dL (70-110)
--- NOTE | 2023-03-19 13:34 | USCV_ITS ---
Alessandro Duran Age: 87 Gender: M : 1935 Exam Date: 03/19/2023 14:14 Ordering Phys: Essence Perez MD Technologist: CT Exam Location: [facility] – [place] Indication: PROCEDURES: The venous duplex Doppler examination of both lower extremities was performed in the standard fashion. Bilaterally, the common femoral, superficial femoral, profunda femoral, popliteal, posterior tibial, greater saphenous veins, and the peroneal trunk were identified In addition, the posterior tibial and peroneal trunk were evaluated. FINDINGS: Normal 2-D Doppler and augmentation and compressibility throughout the lower extremity venous structures. Additional imaging through the proximal calf veins also reveals no thrombus. Limited evaluation of the greater saphenous vein is patent with no thrombus. CONCLUSIONS No evidence of bilateral lower extremity DVT. Dr. Munira Morales DO (Electronically Signed) Final Date: 19 March 2023 14:43 S
[2023-03-19 17:01] LABS: Glucose Point of Care 100 mg/dL (70-110)
--- NOTE | 2023-03-19 17:09 | CTR_ITS ---
PROCEDURE INFORMATION: Exam: CTA Chest With Contrast Exam date and time: 03/19/2023 8:56 PM Age: 87 years old Clinical indication: Other: Hypoxia; Additional info: Hypxia TECHNIQUE: Imaging protocol: Computed tomographic angiography of the chest with contrast. Exam focused on the arteries. 3D rendering (Not supervised by radiologist): MIP and/or 3D reconstructed images were created by the technologist. Radiation optimization: All CT scans at this facility use at least one of these dose optimization techniques: automated exposure control; mA and/or kV adjustment per patient size (includes targeted exams where dose is matched to clinical indication); or iterative reconstruction. Contrast material: OMNI 350; Contrast volume: 100 ml; Contrast route: INTRAVENOUS (IV); REPORTING DATA: Count of CT and Cardiac NM exams in prior 12 months: This patient has received [address] and 0 known cardiac nuclear medicine studies in the 12 months prior to the current study. COMPARISON: CR (CHEST, ) 03/17/2023 9:07 PM RADIATION DOSE METRICS: Total DLP (mGy-cm): 320.08 FINDINGS: Tubes, catheters and devices: Right internal jugular central venous catheter tip is at lower superior vena cava. Pulmonary arteries: Normal. No pulmonary emboli. Aorta: Mild dilation of ascending aorta to 4.6 cm. Lungs: Upper lobe predominant emphysema noted. Symmetric dependent airspace disease in lower lobes suggestive of mild to moderate atelectasis. Milder atelectasis in upper lobes Pleural spaces: Small bilateral pleural effusions. Mild calcified pleural plaquing noted bilaterally. Biapical pleural-parenchymal scarring noted. 8 mm nodule difficult to exclude at posterior right apex Heart: No cardiomegaly. No pericardial effusion. Coronary arteries: Dense coronary arterial calcifications are noted. Lymph nodes: Mild prominence of mediastinal lymph nodes. Bones/joints: No acute fracture. Soft tissues: Unremarkable. CT/CT angio chest PE protcl [id number] IMPRESSION: Small bilateral pleural effusions. Emphysema. Asbestos related pleural disease. Ascending aortic aneurysm measuring 4.6 cm. Symmetric [id number] bilateral lower lobe atelectasis and milder dependent atelectasis in upper lobes. No evident pulmonary embolic disease. 8 mm nodule difficult to exclude at posterior right lung apex; for patients at low risk (minimal or absent history of smoking and of other known risk factors), recommend CT Chest at 6-12 months, then consider CT Chest at 18-24 months. For patients at high risk (history of smoking or of other known risk factors), recommend CT Chest at 6-12 months, then CT Chest at 18-24 months. (Reference: Kev) REFERENCES: Kev Cobos, et al. Guidelines for Management of Incidental Pulmonary Nodules Detected on CT Images: From the Fleischner Society 2017. Radiology. 2017;284(1):228-243.
[2023-03-19 20:36] LABS: Glucose Point of Care 119 mg/dL (70-110)
[2023-03-19] MEDS: metoprolol tartrate 50 mg Tablet 100 MG PO (20:39)
[2023-03-19] MEDS: iohexol 350 mg/mL 500 mL Btl (per mL) IV (21:02)
[2023-03-20] VITALS (10 sets, daily range): BP systolic 111–145; BP diastolic 67–81; PULSE 70–90; RESP 15–22; TEMP 36.6–37.1; O2SAT 93–98
[2023-03-20] MEDS: piperacillin-tazobactam 3.375 GM in sodium chloride 0.9% (plus) 50 ML IV (02:05)
[2023-03-20] MEDS: ipratropium-albuterol 3 mL Neb INHALATION ×2 (03:54→20:02)
[2023-03-20 05:34] LABS: Basophils % 0.1 %; Eosinophils # 0.2 10^3/uL (0.0-0.8); Eosinophils % 1.9 %; Hematocrit 30.5 % (37-53); Lymphocytes # 1.3 10^3/uL (0.8-4.8); Lymphocytes % 12.6 %; Mean Corpuscular HGB Conc 32.8 g/dL (30-55); Mean Corpuscular Hemoglobin 29.2 pg (27-33); Mean Corpuscular Volume 89.2 fl (82-101); Mean Platelet Volume 9.6 fL (7.4-10.4); Monocytes # 0.4 10^3/uL (0.2-0.9); Monocytes % 3.9 %; Neutrophils # 8.44 10^3/uL (1.8-7.7); Neutrophils % 81.1 %; Nucleated Red Blood Cells % 0 %; Platelet Count 128 10^3/cmm (157-399); Red Blood Count 3.42 10^6/uL (3.85-5.65); Red Cell Distribution Width 13.3 % (12.1-15.1); White Blood Count 10.41 10^3/uL (3.29-11.43)
[2023-03-20 05:51] LABS: Anion Gap 10.5 (5-19); Blood Urea Nitrogen 20 mg/dL (8-23); Calcium 7.9 mg/dL (8.5-10.5); Carbon Dioxide 24 mmol/L (22-29); Chloride 110 mmol/L (98-107); Glucose 107 mg/dL (65-115); Osmolality Calculated 295 mOsm/kg (285-295); Potassium 3.5 mmol/L (3.5-5.1); Sodium 141 mmol/L (136-145)
[2023-03-20 06:30] LABS: Glucose Point of Care 116 mg/dL (70-110)
[2023-03-20] MEDS: ascorbic acid 500 mg Tablet PO (08:56)
[2023-03-20] MEDS: sennosides-docusate Tablet 1 TAB PO (08:57)
[2023-03-20] MEDS: OXcarbazepine 300 mg Tablet PO ×2 (08:57→17:01)
--- NOTE | 2023-03-20 09:06 | PC.SOCIAL ---
IMM Update pg 2 of IMM updated and reviewed w/ patient and his daughter. Copy provided and copy dated, initialed and placed in chart.
--- NOTE | 2023-03-20 09:38 | PM.PN ---
Subjective Subjective: Pain on PT evaluation further decision will be made whether patient will be discharged with home health back to his apartment or rehab is needed Patient at baseline uses 2 L of oxygen currently on 4 L Afebrile Feeling better Vitals/I&O/Wt Last Vital Signs Temp 98.0 F 03/20/23 08:00 Pulse 90 03/20/23 08:00 Resp 15 03/20/23 08:00 BP 111/67 03/20/23 08:00 Pulse Ox 93 03/20/23 08:00 O2 Del Method Nasal Cannula 03/20/23 08:00 O2 Flow Rate 4 03/20/23 08:00 03/19/23 03/20/23 03/20/23 22:59 06:59 14:59 Intake Total 410 / 700 50 / 750 240 / 240 Output Total 450 / 1000 200 / 1200 Balance -40 / -300 -150 / -450 240 / 240 Physical Exam Narrative: Patient is awake and alert 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 Pleasant and cooperative Nonfocal neuro exam GCS 15 Grewal catheter has been removed Family at the bedside Urinary Catheter Management: Grewal: Cath Placed During This Visit: yes, but has since been removed by the nurse Reason for Continuing Indwelling Catheter: Other Urinary Catheter Date of Insertion: 03/17/23 Urinary Catheter Time of Insertion: 21:00 Date Urinary Catheter Removed: 03/19/23 Time Urinary Catheter Discontinued: 17:45 Data 03/20/23 04:45 03/20/23 04:45 Micro: Microbiology 03/17/23 18:20 Urine Culture - Final Urine,Clean Catch Escherichia coli A&P Assessment and plan (1) UTI (urinary tract infection): (2) Acute exacerbation of chronic obstructive airways disease: (3) Septic shock: (4) COPD exacerbation: (5) Pulmonary hypertension: (6) Diastolic congestive heart failure: (7) History of CVA (cerebrovascular accident): (8) History of seizure disorder: (9) Hypertension: Plan Septic shock: Resolved UTI: E. coli, changed to p.o. antibiotics PT evaluation pending Discharge later versus long term placement Discontinue IV antibiotics Hemoglobin stable No leukocytosis or fever Echo showed preserved ejection fraction CTA chest and venous Doppler did not show any sign of thromboembolic phenomenon High D-dimer could be related to sepsis shock Full code Attestations Medical Necessity Statement*: Discharge today versus SNF Diagnoses UTI (urinary tract infection) N39.0 Acute exacerbation of chronic obstructive airways disease J44.1 Septic shock A41.9; R65.21 COPD exacerbation J44.1 Pulmonary hypertension I27.20 Diastolic congestive heart failure I50.30 History of CVA (cerebrovascular accident) Z86.73 History of seizure disorder Z86.69 Hypertension I10
[2023-03-20] MEDS: metoprolol tartrate 50 mg Tablet 100 MG PO ×2 (10:05→20:09)
[2023-03-20] MEDS: levoFLOXacin 750 mg Tablet PO (10:05)
[2023-03-20 11:37] LABS: Glucose Point of Care 96 mg/dL (70-110)
[2023-03-20 17:01] LABS: Glucose Point of Care 117 mg/dL (70-110)
[2023-03-20 21:05] LABS: Glucose Point of Care 117 mg/dL (70-110)
[2023-03-21] VITALS (7 sets, daily range): BP systolic 120–142; BP diastolic 75–81; PULSE 75–84; RESP 15–20; TEMP 36.7–36.9; O2SAT 95–98
[2023-03-21 04:33] LABS: Basophils % 0.2 %; Eosinophils # 0.3 10^3/uL (0.0-0.8); Eosinophils % 4.6 %; Hematocrit 30.9 % (37-53); Lymphocytes # 1.1 10^3/uL (0.8-4.8); Lymphocytes % 16.6 %; Mean Corpuscular Hemoglobin 29.6 pg (27-33); Mean Corpuscular Volume 89.6 fl (82-101); Mean Platelet Volume 9.5 fL (7.4-10.4); Monocytes # 0.4 10^3/uL (0.2-0.9); Monocytes % 6.3 %; Neutrophils # 4.69 10^3/uL (1.8-7.7); Nucleated Red Blood Cells % 0 %; Platelet Count 101 10^3/cmm (157-399); Red Blood Count 3.45 10^6/uL (3.85-5.65); Red Cell Distribution Width 13.1 % (12.1-15.1); White Blood Count 6.51 10^3/uL (3.29-11.43)
[2023-03-21 04:57] LABS: Anion Gap 9.6 (5-19); Blood Urea Nitrogen 17 mg/dL (8-23); Calcium 8.4 mg/dL (8.5-10.5); Carbon Dioxide 26 mmol/L (22-29); Chloride 112 mmol/L (98-107); Glucose 101 mg/dL (65-115); Osmolality Calculated 300 mOsm/kg (285-295); Potassium 3.6 mmol/L (3.5-5.1); Sodium 144 mmol/L (136-145)
[2023-03-21] MEDS: levoFLOXacin 750 mg Tablet PO (06:15)
[2023-03-21 06:45] LABS: Glucose Point of Care 102 mg/dL (70-110)
[2023-03-21] MEDS: OXcarbazepine 300 mg Tablet PO (08:00)
[2023-03-21] MEDS: ascorbic acid 500 mg Tablet PO (08:00)
[2023-03-21] MEDS: metoprolol tartrate 50 mg Tablet 100 MG PO (08:01)
[2023-03-21] MEDS: ipratropium-albuterol 3 mL Neb INHALATION (08:34)
--- NOTE | 2023-03-21 08:54 | P.DS_ITS ---
Discharge Providers Date of Admission: 03/17/23 18:39 Date of Discharge: March 21, 2023 Attending Provider at Admission: Essence Perez MD Attending Provider at Discharge: Essence Perez MD Primary Care Provider: Marlin Jesus NP Diagnoses at Discharge Discharge Diagnosis (1) UTI (urinary tract infection): Status: Acute (2) Acute exacerbation of chronic obstructive airways disease: Status: Acute (3) Septic shock: Status: Acute (4) COPD exacerbation: Status: Acute (5) Pulmonary hypertension: Status: Acute (6) Diastolic congestive heart failure: Status: Acute (7) History of CVA (cerebrovascular accident): Status: Acute (8) History of seizure disorder: Status: Acute (9) Hypertension: Status: Acute Reason for Visit Reason for Visit: sob Hospital Course Hospital Course 87-year-old male who came from skilled nursing apartments, daughter stays with him in the apartment, presented with UTI, septic shock, required ICU and Levophed for about 10 to 12 hours, his septic shock resolved he was transferred out of ICU, his urine culture showed E. coli which was pansensitive, patient at baseline uses 2 to 2.5 L of oxygen which she has not been using for quite some time, in the hospital he developed diarrhea, C. difficile to be ruled out before his discharge to SNF, PT recommended SNF placement. Patient and family agreeable for short-term rehab. Patient is frail and malnourished his appetite has been poor his BMI is 20.4. I have kept him on only metoprolol and his blood pressure has been ranging between 116 224 mmHg I have decided to discontinue amlodipine and hydralazine along with losartan. He will get cefpodoxime for his UTI. At the time of discharge she is requiring 3 to 4 L of oxygen, hemodynamically stable. His D-dimer was high CTA chest and venous Doppler did not show any thromboembolic phenomenon, this is most likely related to severe sepsis/septic shock. Multiple goals of care discussion, patient and family wants a trial of CPR or intubation but does not want him to be on machines for prolonged time. Physical Exam Narrative: Awake and alert Able to answer my questions Nonfocal neuro exam Fatigued and lethargic Grewal catheter has been removed Patient eating on his own Short attention span Currently on 4 L nasal cannula Abdomen soft S1, S2 Urinary Catheter Management: Grewal: Cath Placed During This Visit: yes, but has since been removed by the nurse Reason for Continuing Indwelling Catheter: Other Urinary Catheter Date of Insertion: 03/17/23 Urinary Catheter Time of Insertion: 21:00 Date Urinary Catheter Removed: 03/19/23 Time Urinary Catheter Discontinued: 17:45 Discharge Data Studies Completed and Pending Completed Studies During Hospitalization Category Date Time Status CT abdomen pelvis wo con [id number] Routine Cat Scan 03/17/23 18:38 Completed CTA PE [CT angio chest PE protcl [id number]] Routine Cat Scan 03/19/23 17:09 Completed XR chest 1V portable [id number] Stat Exams 03/17/23 15:23 Completed XR chest 1V portable [id number] Stat Exams 03/17/23 20:57 [place] [id number] Routine Ultrasound 03/19/23 13:34 Completed CV. echo limited [id number] Routine Ultrasound 03/18/23 10:45 Completed Pending at discharge Category Date Time Status Blood Culture Stat Lab 03/17/23 16:19 Results COVID [SARS Covid-2 Antigen] Routine Lab 03/21/23 07:44 Uncollected Radiology Impressions Abdomen/Pelvis CT 03/17/23 18:38 IMPRESSION: 1. There is a nonobstructing 3 mm stone in the inferior pole of the left kidney. 2. No hydronephrosis or hydroureter. 3. No perinephric fat stranding to suggest pyelonephritis. Chest X-Ray 03/17/23 20:57 IMPRESSION: Unremarkable central venous catheter position. Chest CTA 03/19/23 17:09 IMPRESSION: Small bilateral pleural effusions. Emphysema. Asbestos related pleural disease. Ascending aortic aneurysm measuring 4.6 cm. Symmetric [id number] bilateral lower lobe atelectasis and milder dependent atelectasis in upper lobes. No evident pulmonary embolic disease. 8 mm nodule difficult to exclude at posterior right lung apex; for patients at low risk (minimal or absent history of smoking and of other known risk factors), recommend CT Chest at 6-12 months, then consider CT Chest at 18-24 months. For patients at high risk (history of smoking or of other known risk factors), recommend CT Chest at 6-12 months, then CT Chest at 18-24 months. (Reference: Kev) REFERENCES: Kev Cobos et al. Guidelines for Management of Incidental Pulmonary Nodules Detected on CT Images: From the Fleischner Society 2017. Radiology. 2017;284(1):228-243. Laboratory Results WBC 6.51 10^3/uL (3.29-11.43) 03/21/23 04:10 RBC 3.45 10^6/uL (3.85-5.65) L 03/21/23 04:10 Hgb 10.20 g/dL (11.27-16.99) L 03/21/23 04:10 Hct 30.9 % (37-53) L 03/21/23 04:10 MCV 89.6 fl (82-101) 03/21/23 04:10 MCH 29.6 pg (27-33) 03/21/23 04:10 MCHC 33.0 g/dL (30-55) 03/21/23 04:10 RDW 13.1 % (12.1-15.1) 03/21/23 04:10 Plt Count 101 10^3/cmm (157-399) L 03/21/23 04:10 MPV 9.5 fL (7.4-10.4) 03/21/23 04:10 Neut % (Auto) 72.0 % 03/21/23 04:10 Lymph % (Auto) 16.6 % 03/21/23 04:10 [place] % (Auto) 6.3 % 03/21/23 04:10 Eos % (Auto) 4.6 % 03/21/23 04:10 Baso % (Auto) 0.2 % 03/21/23 04:10 Neut # (Auto) 4.69 10^3/uL (1.8-7.7) 03/21/23 04:10 Lymph # (Auto) 1.1 10^3/uL (0.8-4.8) 03/21/23 04:10 [place] # (Auto) 0.4 10^3/uL (0.2-0.9) 03/21/23 04:10 Eos # (Auto) 0.3 10^3/uL (0.0-0.8) 03/21/23 04:10 Baso # (Auto) 0.0 10^3/uL (0.0-0.1) 03/21/23 04:10 Nucleated RBC % (auto) 0 % 03/21/23 04:10 Nucleated RBCs # 0.0 /100WBC 03/21/23 04:10 D-Dimer 6.73 ug/mLFEU (0-0.59) H 03/19/23 04:10 Sodium 144 mmol/L (136-145) 03/21/23 04:10 Potassium 3.6 mmol/L (3.5-5.1) 03/21/23 04:10 Chloride 112 mmol/L (98-107) H 03/21/23 04:10 Carbon Dioxide 26 mmol/L (22-29) 03/21/23 04:10 Anion Gap 9.6 (5-19) 03/21/23 04:10 BUN 17 mg/dL (8-23) 03/21/23 04:10 Creatinine 0.6 mg/dL (0.7-1.2) L 03/21/23 04:10 GFR Calculation Not Reportable 03/21/23 04:10 Glucose 101 mg/dL (65-115) 03/21/23 04:10 POC Glucose 102 mg/dL (70-110) 03/21/23 06:40 Estimat Average Glucose 100 03/17/23 09:18 Hemoglobin A1c 5.1 % (4.0-6.0) 03/17/23 09:18 Calculated Osmolality 300 mOsm/kg (285-295) H 03/21/23 04:10 Lactic Acid 3.9 mmol/L (0.5-2.2) H 03/17/23 20:22 Lactic Acid (Sepsis) 2.2 mmol/L (0.5-2.2) 03/17/23 22:38 Calcium 8.4 mg/dL (8.5-10.5) L 03/21/23 04:10 Phosphorus 3.4 mg/dL (2.5-4.5) 03/18/23 02:43 Magnesium 2.3 mg/dL (1.7-2.3) 03/19/23 04:10 Total Bilirubin 0.3 mg/dL (0.15-1.2) 03/17/23 20:22 AST 62 U/L (0-40) H 03/17/23 20:22 ALT 21 U/L (0-41) 03/17/23 20:22 Alkaline Phosphatase 52 U/L (40-130) 03/17/23 20:22 Troponin T Baseline 72 ng/L (0-15) H 03/17/23 20:22 Troponin T 120 Minute 72.54 ng/L (0-15) H 03/17/23 22:12 Delta Troponin T 0.54 ABS# (0-10) 03/17/23 22:12 Troponin T Hi Sens 6Hr 96.06 ng/L (0-15) H 03/18/23 02:43 Troponin T Hi Sens 6Hr Delta 24.06 ng/L (0-12) H* 03/18/23 02:43 C-Reactive Protein 175.5 mg/L (0.0-4.9) H 03/19/23 04:10 NT-Pro-B Natriuret Pep 74654 pg/mL (0-450) H 03/18/23 02:43 Total Protein 5.0 g/dL (6.6-8.7) L D 03/17/23 20:22 Albumin 3.0 g/dL (3.5-5.2) L 03/17/23 20:22 Globulin 2.0 g/dL (1.3-4.6) 03/17/23 20:22 TSH 1.51 uIU/mL (0.27-4.20) 03/17/23 09:18 Random Cortisol 160.10 ug/dL (2.47-19.5) H 03/17/23 20:22 Urine Color [place] (Yellow) A 03/17/23 18:20 Urine Appearance Cloudy (CLEAR) A 03/17/23 18:20 Urine pH 5 (5-7) 03/17/23 18:20 Ur Specific [place] 1.015 (1.005-1.030) 03/17/23 18:20 Urine Protein 2+ (Negative) H 03/17/23 18:20 Urine Glucose (UA) Norm (Normal) 03/17/23 18:20 Urine Ketones Negative (Negative) 03/17/23 18:20 Urine Blood 2+ (Negative) H 03/17/23 18:20 Urine Nitrate Positive (Negative) H 03/17/23 18:20 Urine Bilirubin 2+ (Negative) H 03/17/23 18:20 Urine Urobilinogen 4 mg/dL (Negative) H 03/17/23 18:20 Ur Leukocyte Esterase 2+ (Negative) H 03/17/23 18:20 Urine RBC 0-4 /hpf (0-2) H 03/17/23 18:20 Urine WBC >100 /hpf (0-5) H 03/17/23 18:20 Ur Squamous Epith Cells 0-4 /hpf (0-5) H 03/17/23 18:20 Amorphous Sediment Not Reportable 03/17/23 18:20 Urine Bacteria 4+ /hpf (NONE) H 03/17/23 18:20 Vitals Last Vital Signs Temp 98.0 F 03/21/23 08:00 Pulse 83 03/21/23 08:34 Resp 20 H 03/21/23 08:34 BP 138/76 03/21/23 08:00 Pulse Ox 95 03/21/23 08:34 O2 Del Method Nasal Cannula 03/21/23 08:34 O2 Flow Rate 4 03/21/23 08:34 Discharge Plan Discharge Patient Disposition: Xfer SNF Condition: Stable Prescriptions: New cefpodoxime 200 mg tablet 200 mg PO BID Qty: 10 0RF Rx Instructions: must administer with a meal/food Continued metoprolol tartrate 100 mg tablet 100 mg PO BID oxcarbazepine 300 mg tablet 300 mg PO BID aspirin 81 mg Tablet,Chewable 81 mg PO QAM Centrum Silver Men 300-600-300 mcg Tablet 1 tab PO DAILY ipratropium-albuterol 0.5 mg-3 mg(2.5 mg base)/3 mL solution for nebulization 3 ml inhalation Q4H PRN (Reason: shortness of breath or wheezing) Qty: 90 0RF budesonide-formoterol [Symbicort] 80-4.5 mcg/actuation HFA aerosol inhaler 2 puff inhalation BID Qty: 10.2 0RF latanoprost 0.005 % drops 1 drp ophthalmic (eye) BEDTIME PRN (Reason: unknown) acetaminophen 500 mg Tablet 1,000 mg PO Q6H PRN (Reason: Pain) albuterol sulfate 90 mcg/actuation HFA aerosol inhaler 2 puff INHALATION QID PRN (Reason: Shortness Of Breath) Changed potassium chloride 20 mEq tablet,ER particles/crystals 20 meq PO DAILY PRN (Reason: only with lasix) Qty: 30 0RF furosemide 20 mg tablet 20 mg PO DAILY PRN (Reason: leg oedema) Qty: 30 0RF Rx Instructions: may take extra tab at noon if needed Discontinued hydralazine 10 mg tablet 5 mg PO TID amlodipine 5 mg tablet 5 mg PO DAILY gemfibrozil 600 mg tablet 600 mg PO BID losartan 100 mg tablet 100 mg PO DAILY doxycycline hyclate 100 mg capsule 100 mg PO BID 10 Days Qty: 20 0RF Rx Instructions: for 10 days (rx filled 03/17/23) prednisone 20 mg tablet See Rx Instructions .ROUTE .COMPLEX Rx Instructions: 1 p.o. 3 times daily x3 days, 1 p.o. twice daily x2 days, 1 p.o. daily x2 days (rx filled 03/17/23 7d/s not started) Discharge Orders: Discharge Order (Routine); Ordered 03/21/23 Ordered By: Essence Perez Referrals: [facility] [Outside] Marlin Jesus NP [Primary Care Provider] - Patient Instructions: Opioid Safety Activity Restrictions/Additional Instructions: Please take metoprolol for your blood pressure only we are holding your hydralazine, losartan and amlodipine for now if the blood pressure stays greater than 140 mmHg then you can add losartan. We do think your low blood pressure was due to multiple antihypertensive medications For your diarrhea it is important to rule out C. difficile Get cefpodoxime 5-day regimen for E. coli Discharge Attestations Time Spent in Discharge Care*: greater than 30 min Quality Metrics Clinical Quality Measures [ No reported AMI, CVA or VTE this stay] Coding Level of Care Code Acute Code for [facility] Diagnoses UTI (urinary tract infection) N39.0 Acute exacerbation of chronic obstructive airways disease J44.1 Septic shock A41.9; R65.21 COPD exacerbation J44.1 Pulmonary hypertension I27.20 Diastolic congestive heart failure I50.30 History of CVA (cerebrovascular accident) Z86.73 History of seizure disorder Z86.69 Hypertension I10
[2023-03-21 10:23] LABS: SARS Covid-2 Antigen negative (Negative)
[2023-03-21 11:12] LABS: Glucose Point of Care 99 mg/dL (70-110)
== END 2023-03-21 13:40 | disposition skilled nursing facility (03) | DRG 871 ==
LOC: ER 17:00 → MEDSURG 19:04 → ICU 22:31 → MEDSURG 03-19 13:28
PROVIDERS: Family Medicine; Admitting Provider Internal Medicine; Emergency Provider Family Medicine; PCP Nurse Practitioner Family; Visit Provider Internal Medicine
DX: A41.51 Sepsis due to Escherichia coli [E. coli] (principal); I50.33 Acute on chronic diastolic (congestive) heart failure; R65.21 Severe sepsis with septic shock; N39.0 Urinary tract infection, site not specified; J44.1 Chronic obstructive pulmonary disease with (acute) exacerbation; N12 Tubulo-interstitial nephritis, not specified as acute or chronic; I27.20 Pulmonary hypertension, unspecified; I11.0 Hypertensive heart disease with heart failure; Z86.73 Personal history of transient ischemic attack (TIA), and cerebral infarction without residual deficits; R19.7 Diarrhea, unspecified; Z79.82 Long term (current) use of aspirin; Z11.52 Encounter for screening for COVID-19; E78.5 Hyperlipidemia, unspecified; Z85.46 Personal history of malignant neoplasm of prostate; Z92.3 Personal history of irradiation; Z87.891 Personal history of nicotine dependence
CPT/HCPCS: 36415; 36416; 36592; 36600; 51702; 71045; 71275; 74176; 80048; 80051; 80053; 81001; 82330; 82533; 82805; 82962; 83036; 83605; 83735; 83880; 84100; 84443; 84484; 85025; 85378; 86140; 87040; 87077; 87086; 87186; 87324; 87426; 87449; 87635; 93005; 93308; 93970; 94640; 96376; 97116; 97161; 97530; 99285; J0456; J0696; J1720; J1940; J2270; J2543; J3370; J3475; J7030; J7040; J7050; J7060; Q9967

== ENCOUNTER → 2023-04-22 10:40 | Outpatient (BNVA) | payer MEDICARE, SELFPAY | PROVIDERS: Absent Provider Podiatrist Foot & Ankle Surgery; PCP Nurse Practitioner Family; Referring Provider Nurse Practitioner Family; Visit Provider Podiatrist Foot & Ankle Surgery | DX: R09.89 Other specified symptoms and signs involving the circulatory and respiratory systems (principal); L60.3 Nail dystrophy; I89.0 Lymphedema, not elsewhere classified; I73.9 Peripheral vascular disease, unspecified | CPT/HCPCS: 11721; 99203 ==

== ENCOUNTER 2023-07-05 09:30 | Emergency (ER) | payer MEDICARE, SELFPAY ==
[2023-07-05] VITALS (16 sets, daily range): BP systolic 79–127; BP diastolic 50–91; PULSE 89–115; RESP 16; TEMP 37.1; O2SAT 90–97
--- NOTE | 2023-07-05 09:51 | ED_ITS ---
HPI - Nausea/Vomiting/Diarrhea 2 General: Chief complaint: Nausea/Vomiting/Diarrhea Stated complaint: N/V/D Time Seen by Provider: 07/05/23 09:33 Source: patient Mode of arrival: EMS History of Present Illness: 79-year-old male presents emergency navjot m with nausea vomiting diarrhea for 1 day. No hematemesis or coffee-ground emesis. He is chronically on oxygen at home. He has had some loose stool no productive cough no chest pain. recently diagnosed with a UTI and started on cephalexin MD elicited complaint: nausea, vomiting and diarrhea Onset (ago): day(s) Exacerbating factors: none Relieving factors: none Associated symtoms: Denies chest pain or dysuria Review of Systems 2 Const: Denies: fever(s) or chills Card: Denies: chest pain Resp: Denies: dyspnea GI: Denies: abdominal pain : Denies: dysuria, urinary frequency or urinary urgency Musc: Denies: neck pain or back pain Skin/Breast: Denies: rash PFSH ED 2 PFSH: Medical History (Updated 07/05/23 @ 13:57 by Simón Lind DO) UTI (urinary tract infection) COPD exacerbation Septic shock Acute exacerbation of chronic obstructive airways disease Pulmonary hypertension Diastolic congestive heart failure History of CVA (cerebrovascular accident) Hyperlipidemia Anxiety History of seizure disorder Hypertension History of seizures COPD (chronic obstructive pulmonary disease) Prostate CA Status post radiation Surgical History History of excision of lesion L neck History of cataract surgery History of tonsillectomy Family History Mother , 98, healthy No problems noted. Father CAD (coronary artery disease) Social History Smoking and tobacco/nicotine status: former use of tobacco/nicotine Quit status (tobacco/nicotine): has quit using Year quit tobacco: 20 years ago Second hand smoke exposure: No Alcohol intake: never Substance/Drug Use: never Lives independently: Yes Household members: none Physical Exam 2 Const: COMMON NORMALS: no acute distress GENERAL APPEARANCE: cooperative and comfortable ORIENTATION/CONSCIOUSNESS: Yes awake, Yes oriented to person, Yes oriented to place and Yes oriented to time HENMT: COMMON NORMALS: normocephalic, atraumatic and hearing grossly normal bilaterally HEAD & SCALP: normocephalic and atraumatic Resp: COMMON NORMALS: normal respiratory effort, No retractions, No use of accessory muscles and clear to auscultation bilaterally AUSCULTATION: clear to auscultation bilaterally Cardio: COMMON NORMALS: regular rate, regular rhythm and No murmurs present (Cardio) RATE: regular rate RHYTHM: regular rhythm GI: COMMON NORMALS: Soft to palpation and No hepatosplenomegaly present A USCULTATION: Yes normoactive bowel sounds PALPATION: Yes Soft to palpation, No Tenderness to palpation present (GI), No Guarding due to palpation present (GI) and Yes No hepatosplenomegaly present Extremity: COMMON NORMALS: normal to inspection, capillary refill normal, no clubbing, cyanosis or edema, no calf tenderness and no pedal edema Neuro: SENSORIUM/ORIENTATION: Yes oriented to person, Yes oriented to place and Yes oriented to time Skin: COMMON NORMALS: no rashes or lesions noted GENERAL SKIN EXAM: no rashes or lesions noted Course 2 Vital Signs: Vital signs: Vital Signs Temperature 98.8 F 07/05/23 09:31 Pulse Rate 99 07/05/23 13:00 Respiratory Rate 16 07/05/23 11:36 Blood Pressure 111/56 07/05/23 13:00 Pulse Oximetry 95 07/05/23 13:00 Oxygen Delivery Me thod Nasal Cannula 07/05/23 13:00 Oxygen Flow Rate 2 07/05/23 13:00 MDM - Nausea/Vomiting/Diarrhea Medical Decision Making Patient has a cystitis reviewed his most recent urine culture prior to this infection March 17, 2023 did show E. coli with broad sensitivities. He was initially prescribed cephalexin. Will stop that and switch him to Cipro floxacillin 500 twice daily for 10 days. Vital signs are stable he is otherwise doing well the remainder of his labs were unremarkable he did not have any leukocytosis. He was given IV fluids here. He is complaining of being rather weak at home. Suspect he may need a higher level of care soon. He is not showing signs of sepsis at this time. Does not require hospitalization for this infection. Follow-up with primary care. CT was done showed a left renal calculi it is not obstructing no abscess. Clinically has no signs of pyelonephritis, no imaging findings of pyelonephritis either. Medical Records I reviewed the patient's medical records. Lab Data I reviewed the patient's lab results. 07/05/23 09:58 07/05/23 09:58 Radiology Impressions Chest X-Ray 07/05/23 11:26 IMPRESSION: No focal consolidation. Abdomen/Pelvis CT 07/05/23 12:26 IMPRESSION: Small nonobstructing left renal calculus. No new/acute abdominal findings. Laboratory Results WBC 6.04 10^3/uL (3.29-11.43) 07/05/23 09:58 RBC 3.59 10^6/uL (3.85-5.65) L 07/05/23 09:58 Hgb 10.70 g/dL (11.27-16.99) L 07/05/23 09:58 Hct 32.8 % (37-53) L 07/05/23 09:58 MCV 91.4 fl (82-101) 07/05/23 09:58 MCH 29.8 pg (27-33) 07/05/23 09:58 MCHC 32.6 g/dL (30-55) 07/05/23 09:58 RDW 12.9 % (12.1-15.1) 07/05/23 09:58 Plt Count 132 10^3/cmm (157-399) L 07/05/23 09:58 MPV 8.9 fL (7.4-10.4) 07/05/23 09:58 Neut % (Auto) 92.7 % 07/05/23 09:58 Lymph % (Auto) 2.6 % 07/05/23 09:58 [place] % (Auto) 3.5 % 07/05/23 09:58 Eos % (Auto) 0.7 % 07/05/23 09:58 Baso % (Auto) 0.2 % 07/05/23 09:58 Neut # (Auto) 5.60 10^3/uL (1.8-7.7) 07/05/23 09:58 Lymph # (Auto) 0.2 10^3/uL (0.8-4.8) L 07/05/23 09:58 [place] # (Auto) 0.2 10^3/uL (0.2-0.9) 07/05/23 09:58 Eos # (Auto) 0.0 10^3/uL (0.0-0.8) 07/05/23 09:58 Baso # (Auto) 0.0 10^3/uL (0.0-0.1) 07/05/23 09:58 Nucleated RBC % (auto) 0 % 07/05/23 09:58 Nucleated RBCs # 0.0 /100WBC 07/05/23 09:58 Sodium 140 mmol/L (136-145) 07/05/23 09:58 Potassium 4.0 mmol/L (3.5-5.1) 07/05/23 09:58 Chloride 104 mmol/L (98-107) 07/05/23 09:58 Carbon Dioxide 25 mmol/L (22-29) 07/05/23 09:58 Anion Gap 15.0 (5-19) 07/05/23 09:58 BUN 45 mg/dL (8-23) H 07/05/23 09:58 Creatinine 1.2 mg/dL (0.7-1.2) 07/05/23 09:58 GFR Calculation Not Reportable 07/05/23 09:58 Glucose 102 mg/dL (65-115) 07/05/23 09:58 Calculated Osmolality 302 mOsm/kg (285-295) H 07/05/23 09:58 Calcium 9.3 mg/dL (8.5-10.5) 07/05/23 09:58 Total Bilirubin 0.2 mg/dL (0.15-1.2) 07/05/23 09:58 AST 22 U/L (0-40) 07/05/23 09:58 ALT 11 U/L (0-41) 07/05/23 09:58 Alkaline Phosphatase 109 U/L (40-130) 07/05/23 09:58 Total Protein 6.8 g/dL (6.6-8.7) 07/05/23 09:58 Albumin 3.9 g/dL (3.5-5.2) 07/05/23 09:58 Globulin 2.9 g/dL (1.3-4.6) 07/05/23 09:58 Lipase 72 U/L (13-60) H 07/05/23 09:58 Urine Color [place] (Yellow) A 07/05/23 11:07 Urine Appearance Sl hazy (CLEAR) A 07/05/23 11:07 Urine pH TNP 07/05/23 11:07 Ur Specific [place] TNP 07/05/23 11:07 Urine Protein TNP 07/05/23 11:07 Urine Glucose (UA) TNP 07/05/23 11:07 Urine Ketones TNP 07/05/23 11:07 Urine Blood TNP 07/05/23 11:07 Urine Nitrate TNP 07/05/23 11:07 Urine Bilirubin TNP 07/05/23 11:07 Urine Urobilinogen TNP 07/05/23 11:07 Ur Leukocyte Esterase TNP 07/05/23 11:07 Urine RBC None /hpf (0-2) 07/05/23 11:07 Urine WBC >100 /hpf (0-5) H 07/05/23 11:07 Ur Squamous Epith Cells Rare /hpf (0-5) 07/05/23 11:07 Amorphous Sediment Not Reportable 07/05/23 11:07 Urine Bacteria 2+ /hpf (NONE) H 07/05/23 11:07 Coronavirus 229E (PCR) Not detected (NOT DETECT) 07/05/23 11:30 SARS-CoV-2 (PCR) Not detected (NOT DETECT) 07/05/23 11:30 All radiology interpretation(s) finalized by discharge Discharge Plan Discharge Patient Disposition: Home Clinical Impression: Cystitis Condition: Stable Prescriptions: New Cipro 500 mg tablet 500 mg PO BID Qty: 20 0RF Discontinued cephalexin 250 mg capsule 250 mg PO Q6H levofloxacin 500 mg tablet 500 mg PO DAILY No Action losartan 100 mg tablet 100 mg PO DAILY gemfibrozil 600 mg tablet 600 mg PO DAILY clonidine HCl 0.1 mg tablet 0.1 mg PO DAILY PRN (Reason: Hypertension) metoprolol tartrate 100 mg tablet 100 mg PO BID oxcarbazepine 300 mg tablet 300 mg PO BID aspirin 81 mg Tablet,Chewable 81 mg PO QAM Centrum Silver Men 300-600-300 mcg Tablet 1 tab PO DAILY ipratropium-albuterol 0.5 mg-3 mg(2.5 mg base)/3 mL solution for nebulization 3 ml inhalation Q4H PRN (Reason: shortness of breath or wheezing) Qty: 90 0RF budesonide-formoterol [Symbicort] 80-4.5 mcg/actuation HFA aerosol inhaler 2 puff inhalation BID Qty: 10.2 0RF latanoprost 0.005 % drops 1 drp ophthalmic (eye) BEDTIME acetaminophen 500 mg Tablet 1,000 mg PO Q6H PRN (Reason: Pain) albuterol sulfate 90 mcg/actuation HFA aerosol inhaler 2 puff INHALATION QID PRN (Reason: Shortness Of Breath) tamsulosin 0.4 mg capsule 0.4 mg PO DAILY Qty: 30 0RF hydralazine 10 mg tablet 10 mg PO DAILY amlodipine 5 mg tablet 5 mg PO DAILY mupirocin 2 % ointment 1 applic TOPICAL TID potassium chloride 20 mEq tablet,ER particles/crystals 20 meq PO DAILY furosemide 20 mg tablet 20 mg PO DAILY Rx Instructions: may take extra tab at noon if needed Discharge Orders: Discharge ED (Routine); Ordered 07/05/23 Ordered By: Simón Lind Referrals: Marlin Jesus NP [Primary Care Provider] - Discharge Diet: Usual diet Discharge Activity: Resume usual activity Patient Instructions: Opioid Safety, Pain Management Activity Restrictions/Additional Instructions: Thank you for choosing [facility] for your healthcare needs today. Please realize this is an emergency room and that we are providing you with a medical screening exam and this may not be complete and all inclusive of all the testing and or work up that you may need to determine your ailment or severity of your illness. It is very important that you follow up as instructed or that you return to the Emergency Department should you have concerns or if your condition changes or worsens in any way. Recommend stop previously prescribed antibiotics cephalexin and Levaquin. Start Cipro 500 mg twice daily for 10 days recheck if if any worsening of symptoms Coding Level of Care Code ED [employer] Teacher for Aldair Pino
[2023-07-05 10:06] LABS: Basophils % 0.2 %; Eosinophils % 0.7 %; Hematocrit 32.8 % (37-53); Lymphocytes # 0.2 10^3/uL (0.8-4.8); Lymphocytes % 2.6 %; Mean Corpuscular HGB Conc 32.6 g/dL (30-55); Mean Corpuscular Hemoglobin 29.8 pg (27-33); Mean Corpuscular Volume 91.4 fl (82-101); Mean Platelet Volume 8.9 fL (7.4-10.4); Monocytes # 0.2 10^3/uL (0.2-0.9); Monocytes % 3.5 %; Neutrophils % 92.7 %; Nucleated Red Blood Cells % 0 %; Platelet Count 132 10^3/cmm (157-399); Red Blood Count 3.59 10^6/uL (3.85-5.65); Red Cell Distribution Width 12.9 % (12.1-15.1); White Blood Count 6.04 10^3/uL (3.29-11.43)
[2023-07-05] MEDS: sodium chloride 0.9% 1,000 ML 999 ML IV (10:52)
[2023-07-05] MEDS: ondansetron 2 mg/ML SDV 2 mL 4 MG IVP (10:57)
[2023-07-05 11:10] LABS: Alanine Aminotransferase 11 U/L (0-41); Albumin Level 3.9 g/dL (3.5-5.2); Alkaline Phosphatase 109 U/L (40-130); Aspartate Amino Transferase 22 U/L (0-40); Blood Urea Nitrogen 45 mg/dL (8-23); Calcium 9.3 mg/dL (8.5-10.5); Carbon Dioxide 25 mmol/L (22-29); Chloride 104 mmol/L (98-107); Globulin 2.9 g/dL (1.3-4.6); Glucose 102 mg/dL (65-115); Lipase 72 U/L (13-60); Osmolality Calculated 302 mOsm/kg (285-295); Sodium 140 mmol/L (136-145); Total Bilirubin 0.2 mg/dL (0.15-1.2); Total Protein 6.8 g/dL (6.6-8.7)
--- NOTE | 2023-07-05 11:26 | XRR_ITS ---
PROCEDURE INFORMATION: Exam: XR Chest Exam date and time: 07/05/2023 11:31 AM Age: 87 years old Clinical indication: Cough and dyspnea; Patient HX: SOB; Copd; Asthma TECHNIQUE: Imaging protocol: Radiologic exam of the chest. Views: 1 view. COMPARISON: CT angio chest PE protcl [id number] 03/19/2023 8:56 PM FINDINGS: Lungs: No focal consolidation. Chronic interstitial changes. Pleural spaces: No pleural effusion. No pneumothorax. Heart/Mediastinum: No cardiomegaly. Bones/joints: No acute findings. XR/XR chest 1V portable [id number] IMPRESSION: No focal consolidation.
[2023-07-05] MEDS: ipratropium-albuterol 3 mL Neb INHALATION (11:36)
[2023-07-05 11:41] LABS: Urine Appearance SL Hazy (CLEAR); Urine Color Orange (Yellow)
[2023-07-05 11:43] LABS: Add Urine Culture? Yes; Add Urine Microscopic? YES; Bacteria Urine 2+ /hpf; Squamous Epithelial Cell Urine RARE /hpf (0-5); WBC Urine >100 /hpf (0-5)
--- NOTE | 2023-07-05 11:53 | PC.NURSE ---
PT PLACED ON 2L NC DUE TO OXYGEN SATURATION DROPPING WHILE SLEEPING.
--- NOTE | 2023-07-05 12:26 | CTR_ITS ---
PROCEDURE INFORMATION: Exam: CT Abdomen And Pelvis Without Contrast Exam date and time: 07/05/2023 12:46 PM Age: 87 years old Clinical indication: Abdominal pain; Generalized; Additional info: Flank pain TECHNIQUE: Imaging protocol: Computed tomography of the abdomen and pelvis without contrast. Radiation optimization: All CT scans at this facility use at least one of these dose optimization techniques: automated exposure control; mA and/or kV adjustment per patient size (includes targeted exams where dose is matched to clinical indication); or iterative reconstruction. COMPARISON: CT abdomen pelvis wo con [id number] 03/17/2023 7:58 PM RADIATION DOSE METRICS: Total DLP (mGy-cm): 332.9 FINDINGS: Liver: No acute findings Gallbladder and bile ducts: Cholelithiasis and mild gallbladder distention similar to prior exam. Pancreas: No ductal dilation. Spleen: No splenomegaly. Adrenal glands: No mass. Kidneys and ureters: Unchanged tiny left renal calculus. No ureteral stones or hydronephrosis. Stomach and bowel: No obstruction. Colonic diverticulosis without evidence of acute diverticulitis. Appendix: No evidence of appendicitis. Intraperitoneal space: No free air. No significant fluid collection. Vasculature: No abdominal aortic aneurysm. Lymph nodes: No enlarged lymph nodes. Urinary bladder: Mildly distended.. Reproductive: No acute findings. Bones/joints: No acute findings. Soft tissues: No acute findings. CT/CT kidney stone [id number] IMPRESSION: Small nonobstructing left renal calculus. No new/acute abdominal findings.
[2023-07-05] MEDS: cefTRIAXone 1,000 MG in sodium chloride 0.9% (plus) 50 ML 100 MG IV (12:27)
--- NOTE | 2023-07-05 12:45 | PC.NURSE ---
PT DAUGHTER CALLED FOR AN UPDATE. DAUGHTER CONCERNED THAT THE PT CANNOT CARE FOR HIMSELF ANYMORE AND WOULD LIKE FOR THE PT TO BE PLACED IN A FACILITY. DAUGHTER STATES SHE WILL CALL BACK FOR MORE UPDATES.
[2023-07-05 13:28] LABS: Adenovirus Not Detected (NOT DETECT); Chlamydia Pneumoniae Not Detected (NOT DETECT); Coronavirus 229E,HKU1,NL63,OC4 Not Detected (NOT DETECT); Human Metapneumovirus Not Detected (NOT DETECT); Human Rhinovirus/Enterovirus Not Detected (NOT DETECT); Influenza A Not Detected (NOT DETECT); Influenza A H1 Not Detected (NOT DETECT); Influenza A H1-2009 Not Detected (NOT DETECT); Influenza A H3 Not Detected (NOT DETECT); Influenza B Not Detected (NOT DETECT); Mycoplasma Pneumoniae Not Detected (NOT DETECT); Parainfluenza Virus Type 1 Not Detected (NOT DETECT); Parainfluenza Virus Type 2 Not Detected (NOT DETECT); Parainfluenza Virus Type 3 Not Detected (NOT DETECT); Parainfluenza Virus Type 4 Not Detected (NOT DETECT); Respiratory Syncytial Virus A Not Detected (NOT DETECT); Respiratory Syncytial Virus B Not Detected (NOT DETECT); SARS-COV-2 Not Detected (NOT DETECT)
--- NOTE | 2023-07-05 13:53 | PC.NURSE ---
PT DAUGHTER CALLED REQUESTING UPDATE. PT DAUGHTER INFORMED OF DIAGNOSIS OF BLADDER INFECTION. PT DAUGHTER UPSET BECAUSE A PREVIOUS URINE WAS CULTURED A FEW WEEKS AGO AND HAD A DANGEROUS INFECTION. PT DAUGHTER STATES I DONT SEE WHY YOU ARE NOT KEEPING HIM. HE CANNOT TAKE CARE OF HIMSELF AND HE HAS THIS DANGEROUS INFECTION. PT DAUGHTER EDUCATED ON ADMISSION CRITERIA AND ULTIMATELY THE DOCTORS DECISION OF PT CONDITION. DAUGHTER WANTS PT IN A LONG TERM AND TO NOT BE DISCHARGED HOME. DAUGHTER REQUESTED TO SPEAK TO DR PORTER ON THE PHONE DUE TO HER LIVING IN [place]. PT DAUGHTER EDUCATED ON HOW THE NURSES TYPICALLY SPEAK TO THE FAMILY ON THE PHONE, NOT THE DOCTORS. DAUGHTER STATED SHE WAS SENDING HER BROTHER TO SPEAK TO THE DOCTOR.
--- NOTE | 2023-07-05 14:36 | PC.NURSE ---
PT AWAITING DISCHARGE DUE TO FAMILY NOT WISHING TO PROCEED WITH DISCHARGING THE PT HOME. FAMILY WISHES PT TO BE DISCHARGED TO A GROUP HOME OR ADMITTED TO THE HOSPITAL TO BE PLACED IN A GROUP HOME. BOILER TUBE REAMER NOTIFIED. CHARGE NURSE NOTIFIED. PHYSICIAN NOTIFIED.
--- NOTE | 2023-07-05 15:24 | PC.NURSE ---
PATIENT DAUGHTER CALLED AGAIN REQUESTING TO SEE A NEW DOCTOR. PATIENT DAUGHTER STATES I DO NOT TRUST THIS DOCTOR. LAST TIME HE WAS SEEN HERE, THAT DOCTOR SENT HIM HOME AND HE CAME BACK AGAIN IN SEPTIC SHOCK. BODY ART TECHNICIAN, CARA, NOTIFIED THE PATIENTS DAUGHTER THAT THIS PHYSICIAN HAS THOROUGHLY REVIEWED THE PATIENTS CHART AND LAB WORK AND THE PATIENT DOES NOT MEET THE CRITERIA NEEDED TO BE ADMITTED. PATIENT DAUGHTER STILL REQUESTED THAT THE CASE BE REVIEWED BY ANOTHER DOCTOR. HOSPITALIST WAS CALLED AND REVIEWED THE PATIENT'S CHART. THE HOSPITALIST, DR PONCE, ALSO CONFIRMED THAT THE PATIENT DOES NOT MEET THE CRITERIA TO BE ADMITTED. BODY ART TECHNICIAN NOTIFIED. CHARGE NURSE NOTIFIED.
--- NOTE | 2023-07-05 16:17 | PC.NURSE ---
PATIENT CURRENTLY ON THE PHONE WITH SON ATTEMPTING TO FIGURE OUT THE PATIENT IS GOING TO GET HOME.
--- NOTE | 2023-07-05 16:20 | PC.NURSE ---
THIS NURSE WAS CALLED INTO PATIENT ROOM TO TALK WITH PATIENT'S SON. WHEN THIS NURSE GOT INTO THE PATIENT ROOM, THE SON OF THE PATIENT STATED TO THIS NURSE, HE NEEDS TO BE DISCHARGED IMMEDIATELY. THIS NURSE EDUCATED THE PATIENT'S SON THAT THE PATIENT HAS BEEN DISCHARGED FOR SOMETIME NOW AND THAT WE WERE WORKING ON TRYING TO FIND OUT HOW TO GET THE PATIENT HOME. PATIENT SON STATED, WELL SINCE YOU THINK HE IS SO IN THE KNOW, HE HAD NO IDEA WHAT WAS GOING ON. I WILL BE THERE TO GET MY DAD. THANKS FOR NOTHING. ANAY. PATIENT SON THEN HUNG UP THE PHONE. PATIENT HAD BEEN PREVIOUSLY NOTIFIED OF DISCHARGE ORDERS. THIS NURSE, CHARGE NURSE, AND DRAFTING TECHNICIAN HAVE BEEN IN COMMUNICATION WITH PATIENT'S DAUGHTER AND PATIENT REGARDING DISCHARGE.
== END 2023-07-05 16:50 | disposition home or self-care (01) ==
PROVIDERS: Emergency Provider Family Medicine; PCP Nurse Practitioner Family
DX: N30.90 Cystitis, unspecified without hematuria (principal); Z79.82 Long term (current) use of aspirin; Z11.52 Encounter for screening for COVID-19; N20.0 Calculus of kidney; Z87.891 Personal history of nicotine dependence; J44.9 Chronic obstructive pulmonary disease, unspecified; I11.0 Hypertensive heart disease with heart failure; I50.30 Unspecified diastolic (congestive) heart failure; Z86.73 Personal history of transient ischemic attack (TIA), and cerebral infarction without residual deficits; E78.5 Hyperlipidemia, unspecified; Z85.46 Personal history of malignant neoplasm of prostate; Z92.3 Personal history of irradiation
CPT/HCPCS: 36415; 71045; 74176; 80053; 81001; 83690; 85025; 87040; 87077; 87086; 87186; 87635; 94640; 96361; 96365; 96375; 99285; J0696; J2405; J7030

== ENCOUNTER 2023-07-06 00:06 | Inpatient (IN) | payer MEDICARE, SELFPAY ==
[2023-07-06] VITALS (57 sets, daily range): BP systolic 74–161; BP diastolic 41–121; PULSE 71–135; RESP 3–36; TEMP 36.7–38.7; O2SAT 89–98; BMI 19.1; BMI 20.3
--- NOTE | 2023-07-06 00:21 | XRR_ITS ---
PROCEDURE INFORMATION: Exam: XR Chest Exam date and time: 07/06/2023 12:24 AM Age: 87 years old Clinical indication: Patient HX: Hypotensive. History of prostate cancer. ; Additional info: Hypotension TECHNIQUE: Imaging protocol: Radiologic exam of the chest. Views: 1 view. COMPARISON: CR (CHEST, ) 07/05/2023 11:31 AM FINDINGS: Lungs: Emphysematous changes. Biapical pleuroparenchymal fibrosis. Pleural spaces: Unremarkable. No pleural effusion. No pneumothorax. Heart/Mediastinum: Unremarkable. No cardiomegaly. Bones/joints: Unremarkable. Other findings: 13 mm nodule overlying the right diaphragm, perhaps somewhat more prominent compared to prior exams, chest CT could further characterize this. XR/XR chest 1V portable [id number] IMPRESSION: 1. Negative for infiltrate. 2. Emphysematous changes. 3. Biapical pleuroparenchymal fibrosis. 4. 13 mm nodule overlying the right diaphragm, perhaps somewhat more prominent compared to prior exams, chest CT could further characterize this.
--- NOTE | 2023-07-06 00:29 | ECG_ITS ---
[facility] Test Date: 2023-07-06 Pat Name: Alessandro Duran Department: Room: Gender: Male Draw String Knotter: : 1935 Requested By: Samson Cheng Order Number: [id number] Laquita MD: Roger Rincon M.D. Measurements Intervals [place] Rate: 77 P: -5 MT: 190 QRS: -20 QRSD: 89 T: 57 QT: 412 QTc: 467 Interpretive Statements SINUS RHYTHM POSSIBLE RIGHT VENTRICULAR CONDUCTION DELAY [RSR (QR) IN V1/V2] Compared to ECG 03/17/2023 08:58:15 Supraventricular tachycardia no longer present Left-axis deviation no longer present Myocardial infarct finding no longer present Electronically Signed On 07-07-2023 7:55:57 NATURAL GAS PLANT SUPERVISOR by Roger Rincon M.D. [email or web address] [email or web address].[id number]
[2023-07-06] MEDS: sodium chloride 0.9% 1,660.14 ML 1660.14 ML IV (00:39)
[2023-07-06 00:46] LABS: Basophils % 0.2 %; Eosinophils # 0.1 10^3/uL (0.0-0.8); Eosinophils % 0.7 %; Hematocrit 29.1 % (37-53); Lymphocytes # 0.4 10^3/uL (0.8-4.8); Lymphocytes % 3.4 %; Mean Corpuscular HGB Conc 32.3 g/dL (30-55); Mean Corpuscular Hemoglobin 29.7 pg (27-33); Mean Corpuscular Volume 91.8 fl (82-101); Mean Platelet Volume 10.4 fL (7.4-10.4); Monocytes # 0.7 10^3/uL (0.2-0.9); Monocytes % 6.4 %; Neutrophils # 9.66 10^3/uL (1.8-7.7); Neutrophils % 88.7 %; Nucleated Red Blood Cells % 0 %; Platelet Count 167 10^3/cmm (157-399); Red Blood Count 3.17 10^6/uL (3.85-5.65); Red Cell Distribution Width 13.4 % (12.1-15.1)
[2023-07-06 00:53] LABS: Alanine Aminotransferase 13 U/L (0-41); Albumin Level 3.5 g/dL (3.5-5.2); Alkaline Phosphatase 77 U/L (40-130); Aspartate Amino Transferase 37 U/L (0-40); Blood Urea Nitrogen 47 mg/dL (8-23); C Reactive Protein 84.4 mg/L (0.0-4.9); Calcium 8.7 mg/dL (8.5-10.5); Carbon Dioxide 22 mmol/L (22-29); Chloride 102 mmol/L (98-107); Globulin 2.6 g/dL (1.3-4.6); Glucose 125 mg/dL (65-115); Osmolality Calculated 298 mOsm/kg (285-295); Sodium 137 mmol/L (136-145); Total Bilirubin 0.2 mg/dL (0.15-1.2); Total Protein 6.1 g/dL (6.6-8.7)
[2023-07-06 01:00] LABS: Procalcitonin 14.65 ng/mL (0-0.5)
[2023-07-06] MEDS: norepinephrine 4 MG/250 ML BAG 7.5 MG IV (01:25)
--- NOTE | 2023-07-06 01:44 | XRR_ITS ---
PROCEDURE INFORMATION: Exam: XR Chest Exam date and time: 07/06/2023 1:47 AM Age: 87 years old Clinical indication: Other vascular access device placement or adjustment; Central line, tunnelled; Patient HX: Check S/P central line placement. TECHNIQUE: Imaging protocol: Radiologic exam of the chest. Views: 1 view. COMPARISON: CR (CHEST, ) 07/06/2023 12:24 AM FINDINGS: Tubes, catheters and devices: Central venous catheter terminates in the distal SVC. Lungs: Emphysematous lung disease. Hyperinflation. Negative for consolidation. Pleural spaces: Unremarkable. No pleural effusion. No pneumothorax. Heart/Mediastinum: Unremarkable. No cardiomegaly. Bones/joints: Unremarkable. XR/XR chest 1V portable [id number] IMPRESSION: Satisfactory central venous catheter position.
[2023-07-06] MEDS: vancomycin 1,000 MG in sodium chloride 0.9% 250 ML 250 MG IV (01:58)
[2023-07-06] MEDS: cefTRIAXone 1,000 MG in sodium chloride 0.9% (plus) 50 ML 100 MG IV (02:01)
[2023-07-06] MEDS: sodium chloride 0.9% 1,000 ML 100 ML IV ×2 (02:53→15:07)
--- NOTE | 2023-07-06 03:11 | ED_ITS ---
HPI - General Adult 2 General: Chief complaint: General Medical Stated complaint: Possible UTI Low BP Time Seen by Provider: 07/06/23 00:10 History of Present Illness: 87-year-old male who was seen yesterday and diagnosed with cystitis. He was given antibiotics in the ER, and allowed home. At that point he had a normal blood pressure. Family notes that his blood pressure began to sink last evening. The patient became a bit more groggy. He is still awake, but generally weak. He was mildly confused as well. On EMS arrival, his blood pressure was quite low. Evidently briefly in the 60s systolic. Associated symptoms: Reports dyspnea and headache(s); Deny chest pain or vomiting Review of Systems 2 Const: Reports: fever(s) and chills ENMT: Denies: throat pain Card: Denies: chest pain Resp: Reports: dyspnea; Denies: productive cough GI: Reports: abdominal pain; Denies: vomiting : Reports: dysuria Neuro: Reports: headache(s) PFS ED 2 PFSH: Medical History UTI (urinary tract infection) COPD exacerbation Septic shock Acute exacerbation of chronic obstructive airways disease Pulmonary hypertension Diastolic congestive heart failure History of CVA (cerebrovascular accident) Hyperlipidemia Anxiety History of seizure disorder Hypertension History of seizures COPD (chronic obstructive pulmonary disease) Prostate CA Status post radiation Surgical History History of excision of lesion L neck History of cataract surgery History of tonsillectomy Family History Mother , 98, healthy No problems noted. Father CAD (coronary artery disease) Social History Smoking and tobacco/nicotine status: former use of tobacco/nicotine Quit status (tobacco/nicotine): has quit using Year quit tobacco: 20 years ago Second hand smoke exposure: No Alcohol intake: never Substance/Drug Use: never Lives independently: Yes Household members: none Physical Exam 2 Const: GENERAL APPEARANCE: cooperative, ill appearing (mildly) and frail appearing HENMT: COMMON NORMALS: normocephalic, atraumatic and Normal external nose present HEAD & SCALP: normocephalic and atraumatic FACE & SINUS: normal facial exam and face symmetric NOSE: Normal external nose present MOUTH: m oist mucous membranes abnormal Details: parched Eye: COMMON NORMALS: Equal, round and reactive pupils present and EOMs intact bilaterally PUPIL: Yes Equal, round and reactive pupils present Neck/C-Spine: GENERAL: Yes trachea midline Chest: CHEST: Yes Symmetrical chest wall rise Resp: COMMON NORMALS: No use of accessory muscles and clear to auscultation bilaterally EFFORT & INSPECTION: Yes tachypneic AUSCULTATION: clear to auscultation bilaterally and diminished lung sounds Cardio: COMMON NORMALS: regular rate and regular rhythm RATE: regular rate RHYTHM: regular rhythm GI: COMMON NORMALS: Soft to palpation and non-tender PALPATION: Yes Soft to palpation Extremity: COMMON NORMALS: no pedal edema Neuro: GEORGE COMA SCALE: document GCS findings [place] coma scale eye opening: Spontaneous [place] coma scale verbal response: Orientated [place] coma scale motor response: Obey commands George coma scale total score: 15 Psych: ATTITUDE: Yes calm Procedures Central Line Placement Right IJ: Time Out Performed: Yes Patient Placed on Monitor/Pulse Ox: Yes MD Prep: mask, gown and gloves Central Line Prep: Chlorhexidine scrub Local Anesthetic: lidocaine 1% Amount of anesthesia used (mL): 3 Ultrasound Used for Placement: Yes Central Line Lumen Inserted: triple Post Procedure: sutured in place Post Procedure X-Ray: tip of catheter in good position and no pneumothorax seen Patient Tolerated Procedure: well and no complications Complications: none Course 2 Vital Signs: Vital signs: Vital Signs Temperature 98.0 F 07/06/23 00:07 Pulse Rate 72 07/06/23 02:54 Respiratory Rate 18 07/06/23 02:54 Blood Pressure 103/53 07/06/23 02:54 Pulse Oximetry 96 07/06/23 02:54 Oxygen Delivery Me thod Nasal Cannula 07/06/23 02:54 Oxygen Flow Rate 2 07/06/23 02:54 [facility] - General Adult Medical Decision Making 87-year-old male presents awake and talking. He is pleasant on exam. His blood pressure is quite low, in the 70s systolic. He is given a 30 mL/kg bolus of fluid with little improvement in his blood pressure. Norepinephrine was started. Central line is placed. His white blood cell count is 11. Hemoglobin is 9.5. Creatinine is up to 1.6 from 1.2 yesterday. His CRP is elevated at 84. He is given Rocephin and vancomycin. His lactic acid is 2. Other indices are not terribly remarkable. Chest x-ray shows central line in satisfactory position. Will be admitted for UTI with sepsis. Hospitalist has been contacted and will see the patient. Lab Data 07/06/23 00:00 07/06/23 00:00 Radiology Impressions Chest X-Ray 07/06/23 01:44 IMPRESSION: Satisfactory central venous catheter position. Laboratory Results WBC 10.90 10^3/uL (3.29-11.43) 07/06/23 00:00 RBC 3.17 10^6/uL (3.85-5.65) L 07/06/23 00:00 Hgb 9.40 g/dL (11.27-16.99) L 07/06/23 00:00 Hct 29.1 % (37-53) L 07/06/23 00:00 MCV 91.8 fl (82-101) 07/06/23 00:00 MCH 29.7 pg (27-33) 07/06/23 00:00 MCHC 32.3 g/dL (30-55) 07/06/23 00:00 RDW 13.4 % (12.1-15.1) 07/06/23 00:00 Plt Count 167 10^3/cmm (157-399) 07/06/23 00:00 MPV 10.4 fL (7.4-10.4) 07/06/23 00:00 Neut % (Auto) 88.7 % 07/06/23 00:00 Lymph % (Auto) 3.4 % 07/06/23 00:00 [place] % (Auto) 6.4 % 07/06/23 00:00 Eos % (Auto) 0.7 % 07/06/23 00:00 Baso % (Auto) 0.2 % 07/06/23 00:00 Neut # (Auto) 9.66 10^3/uL (1.8-7.7) H 07/06/23 00:00 Lymph # (Auto) 0.4 10^3/uL (0.8-4.8) L 07/06/23 00:00 [place] # (Auto) 0.7 10^3/uL (0.2-0.9) 07/06/23 00:00 Eos # (Auto) 0.1 10^3/uL (0.0-0.8) 07/06/23 00:00 Baso # (Auto) 0.0 10^3/uL (0.0-0.1) 07/06/23 00:00 Nucleated RBC % (auto) 0 % 07/06/23 00:00 Nucleated RBCs # 0.0 /100WBC 07/06/23 00:00 Sodium 137 mmol/L (136-145) 07/06/23 00:00 Potassium 4.0 mmol/L (3.5-5.1) 07/06/23 00:00 Chloride 102 mmol/L (98-107) 07/06/23 00:00 Carbon Dioxide 22 mmol/L (22-29) 07/06/23 00:00 Anion Gap 17.0 (5-19) 07/06/23 00:00 BUN 47 mg/dL (8-23) H 07/06/23 00:00 Creatinine 1.6 mg/dL (0.7-1.2) H 07/06/23 00:00 GFR Calculation Not Reportable 07/06/23 00:00 Glucose 125 mg/dL (65-115) H 07/06/23 00:00 Calculated Osmolality 298 mOsm/kg (285-295) H 07/06/23 00:00 Lactic Acid 2.0 mmol/L (0.5-2.2) 07/06/23 01:01 Calcium 8.7 mg/dL (8.5-10.5) 07/06/23 00:00 Total Bilirubin 0.2 mg/dL (0.15-1.2) 07/06/23 00:00 AST 37 U/L (0-40) 07/06/23 00:00 ALT 13 U/L (0-41) 07/06/23 00:00 Alkaline Phosphatase 77 U/L (40-130) 07/06/23 00:00 C-Reactive Protein 84.4 mg/L (0.0-4.9) H 07/06/23 00:00 Total Protein 6.1 g/dL (6.6-8.7) L 07/06/23 00:00 Albumin 3.5 g/dL (3.5-5.2) 07/06/23 00:00 Globulin 2.6 g/dL (1.3-4.6) 07/06/23 00:00 Procalcitonin 14.65 ng/mL (0-0.5) H 07/06/23 00:00 All radiology interpretation(s) finalized by discharge Critical Care Time 2 Critical Care Time: Critical Care Time: Yes Total Critical Care Time: 35 Attestation: This case had a high probability of a clinically significant, sudden, or life threatening deterioration of this patient's condition which required my full and direct attention, intervention and personal management. Time is independent of any procedures performed. Discharge Plan Discharge Patient Disposition: Admitted As Inpatient Admit Provider: Maribel Lambert Clinical Impression: Urinary tract infection, Sepsis Condition: Serious Coding Level of Care Code ED Plasterer Foreman for Aldair Pino
[2023-07-06 04:05] LABS: Urine Appearance Hazy (CLEAR); Urine Color Dark Yellow (Yellow)
[2023-07-06 04:14] LABS: Add Urine Microscopic? YES; Bilirubin Urine Neg (Negative); Blood Urine Trace (Negative); Glucose Urine UA Norm (Normal); Ketones Urine Negative (Negative); Leukocyte Esterase Urine 2+ (Negative); Nitrate Urine Negative (Negative); Protein Urine 1+ (Negative); Specific Gravity, Urine 1.015 (1.005-1.030); Urobilinogen Urine Norm (Negative); pH Urine 5 (5-7)
[2023-07-06 04:15] LABS: Bacteria Urine 1+ /hpf; Mucus Urine TRACE /hpf; RBC Urine 0-4 /hpf (0-2); Squamous Epithelial Cell Urine 0-4 /hpf (0-5); WBC Urine >100 /hpf (0-5)
--- NOTE | 2023-07-06 05:16 | P.HP_ITS ---
Providers/Chief Complaint 2 Admitting Physician: Maribel Lambert MD Primary Care Provider: Marlin Jesus NP Chief Complaint: Possible UTI Low BP History of Present Illness Alessandro Duran is a 87 year old male with a past medical history of prostate cancer, status postradiation 20 years ago, history of COPD presenting to the emergency room today with chief complaints of dysuria, burning micturition which has been going on for about a week now. He has been on outpatient treatment with cephalexin without any significant relief. He presented to the emergency room earlier today and was given a prescription for ciprofloxacin, however shortly after returning home his blood pressure started to drop and he was brought to the emergency room by the family. Here he was noted to be hypotensive, systolic blood pressure of 79 upon arrival. He received fluid bolus in the emergency room and was thereafter started on Levophed infusion, which is currently going at 4 mics. Patient's son is at bedside and reports that patient has had recurrent episodes of E. coli urinary tract infections since at least February of this year. His admission in February necessitated an ICU admit for shock which was adequately treated. Thereafter he was transition to a half-way facility where he remained until mid May 2023. At the facility he had another episode of UTI. More recently as an outpatient he has had intermittent episodes of dysuria for which he has been on antibiotics as noted above. He was recommended to follow-up with urologist by his primary care physician but this has not yet happened. He has never had a cystoscopy before. Has a history of prostate cancer, PSA checks were stopped due to advanced age. He reported having urinary hesitancy, interrupted stream about 2 weeks ago. He does not have a chronic Grewal catheter. Has not required frequent catheterizations. CT of the abdomen and pelvis performed yesterday did not show any evidence of obstructive hydronephrosis. Review of systems positive for nausea vomiting which she had this morning. He also has intermittent diarrhea, however this is not a new problem he has had this for 20 years ever since he got radiation for the prostate cancer. Review of Systems 2 General: Reports: 10 or more systems reviewed and unremarkable except in HPI and below Const: Denies: fever(s), chills or body aches Eyes: Denies: change in vision, blurry vision or photophobia ENMT: Reports: hoarseness; Denies: throat pain, enlarged tonsils, odynophagia or nasal congestion Card: Denies: chest pain, palpitations, irregular heart rhythm, edema, swelling of feet/ankles, lightheadedness, pre-syncope, dyspnea on exertion or orthopnea Resp: Denies: dyspnea, productive cough, non-productive cough, wheezing, stridor, pain on inspiration, change in phlegm color, hemoptysis or chest congestion GI: Denies: abdominal pain, nausea, vomiting, hematemesis, coffee ground emesis, dysphagia, heartburn, diarrhea, constipation, GI cramping, change in stool character, hematochezia or melena : Denies: flank pain, dysuria, urinary frequency, urinary urgency, urinary hesitancy or hematuria Musc: Denies: neck pain, back pain, extremity pain, joint swelling, joint warmth or deformity Neuro: Denies: headache(s), numbness in extremities, weakness in extremities, sensory changes, difficulty walking, frequent falls, dizziness, vertigo, behavioral changes, Slurred speech present or seizure-like activity Psych: Denies: anxiety, depression, suicidal ideation or homicidal ideation Endo: Denies: polyuria, polydipsia, tired all the time, cold intolerance or hot flashes Danny/Lymph: Denies: easy bruising or easy bleeding Medications/Allergies Home Medications Medication Instructions Recorded Confirmed Last Taken Type aspirin 81 mg chewable tablet 81 mg PO QAM 11/29/19 07/05/23 07/04/23 History metoprolol tartrate 100 mg tablet 100 mg PO BID 11/29/19 07/05/23 07/04/23 History oxcarbazepine 300 mg tablet 300 mg PO BID 11/29/19 07/05/23 07/04/23 History mnljrbqi-ob-yncqo 300 mcg-K 60 1 tab PO DAILY 12/06/19 07/05/23 07/04/23 History mcg-lycop 600 mcg-lutein 300 mcg tablet (Centrum Silver Men) budesonide-formoterol HFA 80 2 puff inhalation BID #10.2 grams 03/17/23 07/05/23 07/04/23 Rx mcg-4.5 mcg/actuation aerosol inhaler (Symbicort) ipratropium 0.5 mg-albuterol 3 mg 3 ml inhalation Q4H PRN shortness 03/17/23 07/05/23 Unknown Rx (2.5 mg base)/3 mL nebulization of breath or wheezing #90 mL soln acetaminophen 500 mg tablet 1,000 mg PO Q6H PRN Pain 03/18/23 07/05/23 Unknown History albuterol sulfate 90 mcg/actuation 2 puff inhalation QID PRN 03/18/23 07/05/23 Unknown History aerosol inhaler Shortness Of Breath latanoprost 0.005 % eye drops 1 drp ophthalmic (eye) BEDTIME 03/18/23 07/05/23 07/04/23 History tamsulosin 0.4 mg capsule 0.4 mg PO DAILY #30 caps 03/21/23 07/05/23 07/04/23 Rx clonidine HCl 0.1 mg tablet 0.1 mg PO DAILY PRN Hypertension 04/22/23 07/05/23 Unknown History gemfibrozil 600 mg tablet 600 mg PO DAILY 04/22/23 07/05/23 07/04/23 History losartan 100 mg tablet 100 mg PO DAILY 04/22/23 07/05/23 07/04/23 History amlodipine 5 mg tablet 5 mg PO DAILY 07/05/23 07/05/23 07/04/23 History ciprofloxacin HCl 500 mg tablet 500 mg PO BID #20 tabs 07/05/23 Unknown Rx (Cipro) furosemide 20 mg tablet 20 mg PO DAILY 07/05/23 07/05/23 07/04/23 History hydralazine 10 mg tablet 10 mg PO DAILY 07/05/23 07/05/23 07/04/23 History mupirocin 2 % topical ointment 1 applic topical TID 07/05/23 07/05/23 07/04/23 History potassium chloride 20 mEq 20 meq PO DAILY 07/05/23 07/05/23 07/04/23 History tablet,extended release(part/cryst) Allergies Allergy/AdvReac Type Severity Reaction Status Date / Time amoxicillin Allergy Unknown Verified 07/06/23 00:18 Penicillins Allergy Unknown Verified 07/06/23 00:18 PFSH Acute 2 PFSH: Medical History (Updated 07/06/23 @ 05:23 by Maribel Lambert MD) UTI (urinary tract infection) COPD exacerbation Septic shock Acute exacerbation of chronic obstructive airways disease Pulmonary hypertension Diastolic congestive heart failure History of CVA (cerebrovascular accident) Hyperlipidemia Anxiety History of seizure disorder Hypertension History of seizures COPD (chronic obstructive pulmonary disease) Prostate CA Status post radiation Surgical History History of excision of lesion L neck History of cataract surgery History of tonsillectomy Family History Mother , 98, healthy No problems noted. Father CAD (coronary artery disease) Social History Smoking and tobacco/nicotine status: former use of tobacco/nicotine Quit status (tobacco/nicotine): has quit using Year quit tobacco: 20 years ago Second hand smoke exposure: No Alcohol intake: never Substance/Drug Use: never Lives independently: Yes Household members: none Vitals/I&O/Wt Last Vital Signs Temp 98.0 F 07/06/23 00:07 Pulse 72 07/06/23 02:54 Resp 18 07/06/23 02:54 BP 103/53 07/06/23 02:54 Pulse Ox 96 07/06/23 02:54 O2 Del Method Nasal Cannula 07/06/23 04:04 O2 Flow Rate 2 07/06/23 02:54 07/05/23 07/05/23 07/06/23 14:59 22:59 06:59 Intake Total 1719.015 / 1719.015 Balance 1719.015 / 1719.015 Weight last 48 hrs Weight 58.967 kg Weight 55.338 kg Physical Exam 2 Narrative: General: No acute distress, AO x3 HEENT: PERRLA, pupils bilaterally equal and reactive, pallors not present Chest: Normal vesicular breath sounds, no added sounds, equal good air entry bilaterally CVS: S1-S2 regular, no murmurs, no tachycardia, no gallops, no rubs Abdomen: Soft, nontender, no organomegaly, bowel sounds present Neuro: No focal deficits, no facial deformity, AO x3, power 5/5 in all limbs Extremities: No edema clubbing or cyanosis. Peripheral circulation appears to be adequate. Normal capillary refill. Data 07/06/23 00:00 07/06/23 00:00 Other Labs: Radiology Impressions Chest X-Ray 07/06/23 01:44 IMPRESSION: Satisfactory central venous catheter position. XR/XR chest 1V portable [id number] IMPRESSION: 1. Negative for infiltrate. 2. Emphysematous changes. 3. Biapical pleuroparenchymal fibrosis. 4. 13 mm nodule overlying the right diaphragm, perhaps somewhat more prominent compared to prior exams, chest CT could further characterize this. CT/CT kidney stone [id number] IMPRESSION: Small nonobstructing left renal calculus. No new/acute abdominal findings. Laboratory Results WBC 10.90 10^3/uL (3.29-11.43) 07/06/23 00:00 RBC 3.17 10^6/uL (3.85-5.65) L 07/06/23 00:00 Hgb 9.40 g/dL (11.27-16.99) L 07/06/23 00:00 Hct 29.1 % (37-53) L 07/06/23 00:00 MCV 91.8 fl (82-101) 07/06/23 00:00 MCH 29.7 pg (27-33) 07/06/23 00:00 MCHC 32.3 g/dL (30-55) 07/06/23 00:00 RDW 13.4 % (12.1-15.1) 07/06/23 00:00 Plt Count 167 10^3/cmm (157-399) 07/06/23 00:00 MPV 10.4 fL (7.4-10.4) 07/06/23 00:00 Neut % (Auto) 88.7 % 07/06/23 00:00 Lymph % (Auto) 3.4 % 07/06/23 00:00 [place] % (Auto) 6.4 % 07/06/23 00:00 Eos % (Auto) 0.7 % 07/06/23 00:00 Baso % (Auto) 0.2 % 07/06/23 00:00 Neut # (Auto) 9.66 10^3/uL (1.8-7.7) H 07/06/23 00:00 Lymph # (Auto) 0.4 10^3/uL (0.8-4.8) L 07/06/23 00:00 [place] # (Auto) 0.7 10^3/uL (0.2-0.9) 07/06/23 00:00 Eos # (Auto) 0.1 10^3/uL (0.0-0.8) 07/06/23 00:00 Baso # (Auto) 0.0 10^3/uL (0.0-0.1) 07/06/23 00:00 Nucleated RBC % (auto) 0 % 07/06/23 00:00 Nucleated RBCs # 0.0 /100WBC 07/06/23 00:00 Sodium 137 mmol/L (136-145) 07/06/23 00:00 Potassium 4.0 mmol/L (3.5-5.1) 07/06/23 00:00 Chloride 102 mmol/L (98-107) 07/06/23 00:00 Carbon Dioxide 22 mmol/L (22-29) 07/06/23 00:00 Anion Gap 17.0 (5-19) 07/06/23 00:00 BUN 47 mg/dL (8-23) H 07/06/23 00:00 Creatinine 1.6 mg/dL (0.7-1.2) H 07/06/23 00:00 GFR Calculation Not Reportable 07/06/23 00:00 Glucose 125 mg/dL (65-115) H 07/06/23 00:00 Calculated Osmolality 298 mOsm/kg (285-295) H 07/06/23 00:00 Lactic Acid 2.0 mmol/L (0.5-2.2) 07/06/23 01:01 Calcium 8.7 mg/dL (8.5-10.5) 07/06/23 00:00 Total Bilirubin 0.2 mg/dL (0.15-1.2) 07/06/23 00:00 AST 37 U/L (0-40) 07/06/23 00:00 ALT 13 U/L (0-41) 07/06/23 00:00 Alkaline Phosphatase 77 U/L (40-130) 07/06/23 00:00 C-Reactive Protein 84.4 mg/L (0.0-4.9) H 07/06/23 00:00 Total Protein 6.1 g/dL (6.6-8.7) L 07/06/23 00:00 Albumin 3.5 g/dL (3.5-5.2) 07/06/23 00:00 Globulin 2.6 g/dL (1.3-4.6) 07/06/23 00:00 Procalcitonin 14.65 ng/mL (0-0.5) H 07/06/23 00:00 Urine Color Dark yellow (Yellow) 07/06/23 04:00 Urine Appearance Hazy (CLEAR) A 07/06/23 04:00 Urine pH 5 (5-7) 07/06/23 04:00 Ur Specific [place] 1.015 (1.005-1.030) 07/06/23 04:00 Urine Protein 1+ (Negative) H 07/06/23 04:00 Urine Glucose (UA) Norm (Normal) 07/06/23 04:00 Urine Ketones Negative (Negative) 07/06/23 04:00 Urine Blood Trace (Negative) H 07/06/23 04:00 Urine Nitrate Negative (Negative) 07/06/23 04:00 Urine Bilirubin Neg (Negative) 07/06/23 04:00 Urine Urobilinogen Norm mg/dL (Negative) 07/06/23 04:00 Ur Leukocyte Esterase 2+ (Negative) H 07/06/23 04:00 Urine RBC 0-4 /hpf (0-2) H 07/06/23 04:00 Urine WBC >100 /hpf (0-5) H 07/06/23 04:00 Ur Squamous Epith Cells 0-4 /hpf (0-5) H 07/06/23 04:00 Amorphous Sediment Not Reportable 07/06/23 04:00 Urine Bacteria 1+ /hpf (NONE) H 07/06/23 04:00 Urine Mucus Trace /hpf 07/06/23 04:00 A&P Assessment and plan (1) Sepsis: 87-year-old male with a 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 Overall clinical picture is concerning for septic shock. Received sepsis bolus in the emergency room and thereafter needed to be started on Levophed infusion Blood cultures taken prior to initiation of antibiotic. Lactate 2.0. Peripheral perfusion appears to be adequate, capillary refill is normal at this time, patient is currently on 4 mics of Levophed. Will titrate Levophed for MAP of 65 Currently received empiric antibiotics with ceftriaxone and vancomycin. Will switch to coverage with meropenem 1 g IV every 24 hours (renally dosed for creatinine clearance of 29) suspected ESBL Enterobacteriaceae given multiple recent antibiotic use and failure to improve with outpatient cephalosporins. Source is most likely to be urinary UA 2+ leukocyte esterase, greater than 100 WBCs. Urine culture awaited. Chest x-ray without consolidation. Suspect may have bladder outflow obstruction from enlarged prostate, would likely benefit from initiation of Flomax once blood pressure improves. Will also need urology referral eventually for cystoscopy and other urodynamic studies. No obstructive hydronephrosis on CT abdomen today, no urgent indication for urology intervention. (2) Urinary tract infection: As above (3) COPD (chronic obstructive pulmonary disease): Not currently exacerbated DuoNeb every 6 hours inhalation (4) Intertrigo: Local application of clotrimazole ointment (5) PINEDA (acute kidney injury): Likely related to dehydration and sepsis. Currently on normal saline at 100 cc an hour. Closely monitor urine output. Plan DVT prophylaxis: Lovenox Full code, however would not want prolonged life-sustaining measures in case of futility Attestations 2 Medical Necessity Statement*: Greater than 2 midnight admission is expected Critical Care Time: The high probability of a clinically significant, sudden or life threatening deterioration of the patient's [infectious, circulatory] system(s) required my full and direct attention, intervention and personal management. The critical care time is as shown. This time is in addition to time spent performing any reported procedures but includes the following: [x] Data and vital sign review and interpretation [x] Patient assessment, examination and intervention [x] Documentation [x] Medication orders and management Critical Care Time (min): 60 Coding Level of Care Code Acute Code for [facility] Diagnoses Sepsis A41.9 Urinary tract infection N39.0 COPD (chronic obstructive pulmonary disease) J44.9 Intertrigo L30.4 PINEDA (acute kidney injury) N17.9
[2023-07-06] MEDS: aspirin 81 mg Chew Tablet PO (05:49)
[2023-07-06] MEDS: meropenem 1,000 MG in sodium chloride 0.9% (plus) 50 ML 100 MG IV (05:49)
[2023-07-06] MEDS: enoxaparin 30 mg/0.3 mL Syringe SUBCUT (05:49)
--- NOTE | 2023-07-06 08:18 | USR_ITS ---
PROCEDURE INFORMATION: Exam: US Retroperitoneal; Complete; Kidneys and Bladder Exam date and time: 07/06/2023 10:04 AM Age: 87 years old Clinical indication: Condition or disease; Other: Obstructive uropathy TECHNIQUE: Imaging protocol: Real-time ultrasound of the retroperitoneum with image documentation. Complete exam focused on the kidneys and bladder. COMPARISON: CT kidney stone [id number] 07/05/2023 12:46 PM FINDINGS: Right kidney: The right kidney is unremarkable. Cortical thickness and echotexture is normal. There is no hydronephrosis. No visible stones. The right kidney measures 10.5 x 4.8 x 4.1 cm. Left kidney: The left kidney is unremarkable. Cortical thickness and echotexture is normal. There is no hydronephrosis. No visible stones. Left kidney measures 9.9 x 4.6 x 4.3 cm. Aorta: Diffuse aortic calcific plaque. No aneurysm is visible. The distal aorta is obscured. The abdominal aorta measures up to 1.9 cm diameter. Urinary bladder: Bladder is mildly distended and there is mild diffuse thickening of the bladder wall. No bladder mass is visible. There is a subtly echogenic interface in the dependent aspect of the urinary bladder which may represent layering debris or blood. Prostate: Prostate gland is not significantly enlarged. Central calcifications are present. US/US renal BI* [id number] IMPRESSION: 1. No hydronephrosis. 2. Mildly distended thick-walled urinary bladder suggesting muscular hypertrophy. Bladder outlet obstruction is not excluded. Consider follow-up ultrasound evaluation of postvoid residual volume if there is clinical concern for bladder outlet obstruction. 3. Subtle echogenic interface in the dependent portion of the bladder suggests layering intraluminal debris or blood.
[2023-07-06] MEDS: OXcarbazepine 300 mg Tablet PO ×2 (08:37→17:17)
[2023-07-06] MEDS: pantoprazole DR 40 mg Tablet PO (08:37)
[2023-07-06] MEDS: gemfibrozil 600 mg Tablet PO (08:37)
[2023-07-06] MEDS: clotrimazole 1% cream 30 gm 1 APPLIC TOPICAL ×2 (09:29→17:19)
[2023-07-06] MEDS: acetaminophen 325 mg Tablet 650 MG PO ×2 (09:29→17:18)
[2023-07-06] MEDS: tamsulosin 0.4 mg Capsule PO (11:31)
--- NOTE | 2023-07-06 17:41 | ECG_ITS ---
[facility] Test Date: 2023-07-06 Pat Name: Alessandro Duran Department: Room: ICU04 Gender: Male Pharmacy Delivery Driver: : [id number] Requested By: Julio Bravo Order Number: [id number] Laquita MD: Roger Rincon M.D. Measurements Intervals [place] Rate: 121 P: 93 NM: 210 QRS: -37 QRSD: 71 T: 64 QT: 307 QTc: 437 Interpretive Statements SINUS TACHYCARDIA WITH FIRST DEGREE AV BLOCK WITH OCCASIONAL VENTRICULAR PREMATURE COMPLEXES POSSIBLE RIGHT VENTRICULAR CONDUCTION DELAY [RSR (QR) IN V1/V2] INFERIOR MYOCARDIAL INFARCTION , PROBABLY OLD [40+ ms Q WAVE AND/OR ST/T ABNORMALITY IN II/aVF] Compared to ECG 07/06/2023 00:29:09 Ventricular premature complex(es) now present First degree AV block now present Myocardial infarct finding now present Sinus rhythm no longer present Electronically Signed On 07-07-2023 8:01:32 FITNESS SALES CONSULTANT by Roger Rincon M.D. [id number]
--- NOTE | 2023-07-06 18:27 | PC.NURSE ---
Shift SUmmary: Uneventful shift. Patient rested in bed throughout the day. Levophed requirements were variable, as high as 8mcg while sleeping, sometimes completely off when awake. Frequent urination and incomplete bladder emptying has improved after dose of flomax, but still present. Scheduled bladder scans ordered. Patient states that he had a urine culture taken at a clinic in [place] prior to admission, he doesn't know which one. Unable to follow up with today as it is friday, Message left with pipeline controller for friday followup. Total urine output1: 900mL.
--- NOTE | 2023-07-06 19:17 | P.PN_ITS ---
Subjective 2 Subjective: Patient was seen this morning, he is alert to person, to place, to time, he can follow commands at times he is encephalopathic, denies any nausea, no vomiting does feel lightheaded does feel feverish and chills, currently on Levophed, with sepsis, septic shock, discussed inpatient monitoring IV antibiotics, continue Levophed weaning as tolerated, have ordered a renal ultrasound, will continue to monitor him closely, continues to need ICU monitoring, I also spoke to patient's daughter, over the phone, discussed patient's sepsis from UTI in detail, all questions answered, she is worried about Alessandro coming home, she feels that Alessandro would benefit from [facility] care, discussed potentially having PT OT work with him tomorrow depending on his clinical status, Vitals/I&O/Wt Last Vital Signs Temp 100.1 F H 07/06/23 17:00 Pulse 114 H 07/06/23 18:00 Resp 22 H 07/06/23 18:00 BP 138/74 07/06/23 18:00 Pulse Ox 93 07/06/23 18:00 O2 Del Method Nasal Cannula 07/06/23 17:00 O2 Flow Rate 2 07/06/23 17:00 07/06/23 07/06/23 07/06/23 06:59 14:59 22:59 Intake Total 1719.015 / 7090.542 8513.375 / 1366.375 268.75 / 1635.125 Output Total 700 / 700 200 / 900 Balance 1719.015 / 1719.015 666.375 / 666.375 68.75 / 735.125 Weight last 48 hrs Weight 58.967 kg Weight 58.967 kg Weight 55.338 kg Physical Exam 2 Const: COMMON NORMALS: no acute distress ORIENTATION/CONSCIOUSNESS: Yes awake, Yes oriented to person, Yes oriented to place and Yes confused; not oriented to time Resp: COMMON NORMALS: normal respiratory effort, No retractions, No use of accessory muscles and clear to auscultation bilaterally AUSCULTATION: clear to auscultation bilaterally Cardio: COMMON NORMALS: regular rate, regular rhythm, S1 normal heart sound present and S2 normal heart sound present RATE: regular rate RHYTHM: r egular rhythm HEART SOUNDS: S1 normal heart sound present and S2 normal heart sound present GI: COMMON NORMALS: Normal to inspection, nondistended, normoactive bowel sounds present, Soft to palpation and non-tender PALPATION: Yes Soft to palpation Extremity: COMMON NORMALS: no pedal edema Neuro: SENSORIUM/ORIENTATION: Yes oriented to person, Yes oriented to place and No oriented to time Psych: COMMON NORMALS: mental status grossly normal Sepsis: Is patient septic: Yes Focused sepsis exam performed: Yes F ocused sepsis exam: DP PT pulses diminished, pale bilateral lower extremities, capillary refill greater than 3 seconds, Date exam was performed: 07/06/23 Time exam was performed: 09:00 Data 07/06/23 00:00 07/06/23 00:00 A&P Assessment and plan (1) Sepsis: 87-year-old male with a 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 Overall clinical picture is concerning for septic shock. Received sepsis bolus in the emergency room and thereafter needed to be started on Levophed infusion Blood cultures taken prior to initiation of antibiotic. Lactate 2.0. Currently on Levophed Will titrate Levophed for MAP of 65 Currently received empiric antibiotics with ceftriaxone and vancomycin. Will switch to coverage with meropenem 1 g IV every 24 hours (renally dosed for creatinine clearance of 29) suspected ESBL Enterobacteriaceae given multiple recent antibiotic use and failure to improve with outpatient cephalosporins. Add vancomycin today Source is most likely to be urinary UA 2+ leukocyte esterase, greater than 100 WBCs. Urine culture awaited. Chest x-ray without consolidation. Suspect may have bladder outflow obstruction from enlarged prostate, would likely benefit from initiation of Flomax once blood pressure improves. Will also need urology referral eventually for cystoscopy and other urodynamic studies. No obstructive hydronephrosis on CT abdomen today, no urgent indication for urology intervention. Will order renal ultrasound today (2) Urinary tract infection: As above (3) COPD (chronic obstructive pulmonary disease): Not currently exacerbated DuoNeb every 6 hours inhalation (4) Intertrigo: Local application of clotrimazole ointment (5) PINEDA (acute kidney injury): Likely related to dehydration and sepsis. Currently on normal saline at 100 cc an hour. Closely monitor urine output. (6) Septic shock: (7) Acute encephalopathy: Secondary to sepsis, septic shock, UTI Plan DVT prophylaxis: Lovenox Full code, however would not want prolonged life-sustaining measures in case of futility Attestations 2 Medical Necessity Statement*: Patient requires hospitalization for septic shock, sepsis secondary to UTI, encephalopathy, PINEDA, inpatient, greater than 2 midnights Coding Level of Care Code Critical Care >/= 30 minutes Critical care time (in minutes): 45 The high probability of a clinically significant, sudden or life threatening deterioration, as referenced in this documentation, required my full and direct attention, intervention and personal management. The critical care time shown is in addition to time spent performing any reported separately billable procedures and includes the following: [x] Data and vital sign review and interpretation [x ] Patient assessment, examination and intervention [x] Medication orders and management [x] Patient/Family updates as able [x] Care Coordination and Documentation. Diagnoses Sepsis A41.9 Urinary tract infection N39.0 COPD (chronic obstructive pulmonary disease) J44.9 Intertrigo L30.4 PINEDA (acute kidney injury) N17.9 Septic shock A41.9; R65.21 Acute encephalopathy G93.40
--- NOTE | 2023-07-06 21:55 | PC.NURSE ---
Pupils Patient's right eye noted to be a size 2 while patient's left eye a size 3. Bilateral hand insurance claims assistant equal, patient alert and oriented x4, and face symmetrical. Dr. Darden notified of new finding; no new orders received.
--- NOTE | 2023-07-06 22:50 | PC.NURSE ---
Shortness of breath Patient's HR ranging from 130-140 with elevated blood pressures ranging from 145-158 systolic and 93-121 diastolic. Patient's RR 30 while being visibly short of breath with use of accessory muscles. Nasal cannula titrated up to 4 L from 2. EKG performed. Dr. Darden contacted and order received to hold IV fluids as well as obtain a chest xray.
--- NOTE | 2023-07-06 22:53 | XRR_ITS ---
PROCEDURE INFORMATION: Exam: XR Chest Exam date and time: 07/06/2023 11:00 PM Age: 87 years old Clinical indication: Shortness of breath; Patient HX: Worsening SOB. History of prostate cancer. RT central line in place. ; Additional info: Worsening hypoxia TECHNIQUE: Imaging protocol: Radiologic exam of the chest. Views: 1 view. COMPARISON: CR (CHEST, ) 07/06/2023 1:47 AM FINDINGS: Tubes, catheters and devices: Right IJ CVC with tip near the superior cavoatrial junction. Lungs: No focal consolidation. Probable atelectasis in the right medial lung base. Coarse interstitial lung markings bilaterally, similar to prior, likely related to emphysema. Pleural spaces: No large pleural effusion. No pneumothorax. Heart/Mediastinum: No cardiomegaly. Bones/joints: No acute abnormality. XR/XR chest 1V portable [id number] IMPRESSION: No focal consolidation. Probable mild atelectasis in the right medial lung base, new from prior.
--- NOTE | 2023-07-06 23:00 | ECG_ITS ---
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 Measurements Intervals [place] Rate: 132 P: -87 KS: 125 QRS: -48 QRSD: 82 T: 70 QT: 311 QTc: 461 Interpretive Statements JUNCTIONAL TACHYCARDIA LEFT ANTERIOR FASCICULAR BLOCK [QRS AXIS <= -45, QR IN I, RS IN II] Compared to ECG 07/06/2023 17:41:38 Junctional tachycardia now present Left anterior fascicular block now present Sinus tachycardia no longer present Ventricular premature complex(es) no longer present First degree AV block no longer present Myocardial infarct finding no longer present Electronically Signed On 07-07-2023 8:00:41 HIM SPECIALIST by Roger Rincon M.D. [id number]
[2023-07-06] MEDS: morphine 4 mg/mL SDV 1 mL 2 MG IVP (23:06)
[2023-07-06] MEDS: metoprolol tartrate 50 mg Tablet PO (23:59)
[2023-07-07] VITALS (46 sets, daily range): BP systolic 71–164; BP diastolic 45–136; PULSE 70–136; RESP 16–43; TEMP 36.8–38.1; O2SAT 87–100; BMI 20.3
--- NOTE | 2023-07-07 | PC.NURSE ---
Shortness of breath/Bladder scan Patient still complaining of being short of breath with a HR remaining in the 130s; nasal cannula titrated up to 6L. Additionally, bladder scan performed revealing 415 ml of urine remaining in bladder despite [address] Darden notified of both situations and orders received to place a bunch catheter as well as administer 50 mg metoprolol tartrate PO once. See MAR for details.
--- NOTE | 2023-07-07 01:00 | PC.NURSE ---
Addendum entered by Kenya Nunes RN 07/07/23 03:32: Nasal cannula switched to oxymask at 6L at this time. Original Note: Shortness of breath Patient's heart rate still ranging from 127-136 with patient stating he still cannot catch his breath no matter what he attempted to do to fix it. Dr. Darden contacted; order received for 2.5 mg metoprolol tartrate IVP once one. See MAR for details.
[2023-07-07] MEDS: metoprolol tartrate 1 mg/1 mL SDV 5 mL 2.5 MG IVP (01:10)
--- NOTE | 2023-07-07 02:00 | PC.NURSE ---
Vtach/anxiety Patient had approximately 7 seconds of vtach on bedside telemetry. Furthermore, patient still complaining of worsening shortness of breath and stating he feels anxious. Dr. Darden notified of heart rhythm as well as anxiety; orders received to check a mag/phos with morning labs as well as 0.5 mg ativan IVP once. See MAR for details.
[2023-07-07] MEDS: LORazepam 2 mg/mL INJ 10 mL MDV 0.5 MG IVP (02:09)
[2023-07-07 04:09] LABS: Basophils % 0.3 %; Eosinophils # 0.1 10^3/uL (0.0-0.8); Eosinophils % 1.2 %; Hematocrit 30.7 % (37-53); Lymphocytes # 0.4 10^3/uL (0.8-4.8); Lymphocytes % 5.3 %; Mean Corpuscular HGB Conc 30.9 g/dL (30-55); Mean Corpuscular Hemoglobin 28.8 pg (27-33); Mean Platelet Volume 9.6 fL (7.4-10.4); Monocytes # 0.3 10^3/uL (0.2-0.9); Monocytes % 4.8 %; Neutrophils # 5.84 10^3/uL (1.8-7.7); Neutrophils % 87.9 %; Nucleated Red Blood Cells % 0 %; Platelet Count 131 10^3/cmm (157-399); Red Cell Distribution Width 13.3 % (12.1-15.1); White Blood Count 6.64 10^3/uL (3.29-11.43)
[2023-07-07 04:31] LABS: Lactate (Lactic Acid level) 0.8 mmol/L (0.5-2.2)
[2023-07-07 04:33] LABS: Alanine Aminotransferase 21 U/L (0-41); Albumin Level 3.3 g/dL (3.5-5.2); Alkaline Phosphatase 91 U/L (40-130); Anion Gap 14.4 (5-19); Aspartate Amino Transferase 58 U/L (0-40); Blood Urea Nitrogen 31 mg/dL (8-23); Calcium 8.5 mg/dL (8.5-10.5); Carbon Dioxide 21 mmol/L (22-29); Chloride 112 mmol/L (98-107); Globulin 2.6 g/dL (1.3-4.6); Glucose 119 mg/dL (65-115); Osmolality Calculated 304 mOsm/kg (285-295); Potassium 4.4 mmol/L (3.5-5.1); Sodium 143 mmol/L (136-145); Total Bilirubin 0.2 mg/dL (0.15-1.2); Total Protein 5.9 g/dL (6.6-8.7)
[2023-07-07 04:34] LABS: Magnesium 2.1 mg/dL (1.7-2.3); Phosphorus 2.9 mg/dL (2.5-4.5)
[2023-07-07 04:38] LABS: Procalcitonin 4.37 ng/mL (0-0.5)
[2023-07-07 04:57] LABS: C Reactive Protein 152.7 mg/L (0.0-4.9)
[2023-07-07] MEDS: enoxaparin 30 mg/0.3 mL Syringe SUBCUT (05:09)
[2023-07-07] MEDS: aspirin 81 mg Chew Tablet PO (05:09)
[2023-07-07] MEDS: meropenem 1,000 MG in sodium chloride 0.9% (plus) 50 ML 100 MG IV (05:09)
[2023-07-07] MEDS: OXcarbazepine 300 mg Tablet PO ×2 (10:22→18:38)
[2023-07-07] MEDS: pantoprazole DR 40 mg Tablet PO (10:23)
[2023-07-07] MEDS: gemfibrozil 600 mg Tablet PO (10:23)
[2023-07-07] MEDS: tamsulosin 0.4 mg Capsule PO (10:23)
[2023-07-07] MEDS: clotrimazole 1% cream 30 gm 1 APPLIC TOPICAL (10:24)
--- NOTE | 2023-07-07 16:02 | PM.PN ---
Vitals/I&O/Wt Last Vital Signs Temp 99.3 F 07/07/23 05:00 Pulse 70 07/07/23 11:39 Resp 21 H 07/07/23 11:39 BP 106/60 07/07/23 11:39 Pulse Ox 95 07/07/23 11:39 O2 Del Method Nasal Cannula 07/07/23 09:12 O2 Flow Rate 2 07/07/23 09:12 07/07/23 07/07/23 07/07/23 06:59 14:59 22:59 Intake Total 50 / 1685.125 Output Total 525 / 1650 Balance -475 / 35.125 Weight last 48 hrs Weight 58.876 kg Weight 58.967 kg Weight 58.967 kg Weight 55.338 kg Physical Exam Narrative: Accompanied by granddaughter. Const: COMMON NORMALS: patient oriented x3 and alert GENERAL APPEARANCE: cooperative and frail appearing ORIENTATION/CONSCIOUSNESS: Yes awake HENMT: COMMON NORMALS: oropharynx normal Eye: OTHER: Pupils equal. Neck/C-Spine: COMMON NORMALS: no JVD Resp: COMMON NORMALS: normal respiratory effort and clear to auscultation bilaterally AUSCULTATION: clear to auscultation bilaterally Cardio: COMMON NORMALS: no JVD, regular rhythm, S1 normal heart sound present, S2 normal heart sound present and No murmurs present (Cardio) RHYTHM: regular rhythm HEART SOUNDS: S1 normal heart sound present and S2 normal heart sound present GI: COMMON NORMALS: Normal to inspection, nondistended, normoactive bowel sounds present, Soft to palpation and non-tender PALPATION: Yes Soft to palpation Extremity: COMMON NORMALS: no joint enlargement and no pedal edema Neuro: COMMON NORMALS: patient oriented x3 and moves all extremities SENSORIUM/ORIENTATION: Yes alert Skin: COMMON NORMALS: no rashes or lesions noted GENERAL SKIN EXAM: no rashes or lesions noted Urinary Catheter Management: Grewal: Cath Placed During This Visit: yes Reason for Continuing Indwelling Catheter: Accurate Measurement of Urinary Output in Critically Ill Patients Urinary Catheter Date of Insertion: 07/07/23 Urinary Catheter Time of Insertion: 00:10 Data 07/07/23 03:00 07/07/23 03:00 A&P Assessment and plan (1) Sepsis: Vitals, CBC. Hypotensive this morning, blood pressure is down to 70 systolic. Was placed in Trendelenburg position temporarily. Not have to go back on pressors. Septic shock so far resolved, however, is still significantly hypotensive this morning, will blood pressure still variable, this evening down to 90/55, for now monitoring in the ICU. Continue treatment of complicated UTI with multidrug-resistant organism. Continue meropenem. Reviewed blood cultures, pending. Reviewed chest x-ray, add incentive spirometer. He is having some diarrhea, nausea, not vomiting. Reviewed COVID-19 PCR panel, negative. Recently with read attentive courses, check C. difficile. Cont meropenem for multidrug-resistant infection. Monitor for risk of seizure. Vancomycin for now. Check procalcitonin. Monitor for risk of kidney injury. Source is most likely to be urinary Suspect may have bladder outflow obstruction from enlarged prostate, would likely benefit from initiation of Flomax once blood pressure improves. Will also need urology referral eventually for cystoscopy and other urodynamic studies. No obstructive hydronephrosis on CT abdomen Renal ultrasound reviewed. Discussed with case management social worker. (2) Urinary tract infection: As above (3) COPD (chronic obstructive pulmonary disease): Not currently exacerbated DuoNeb every 6 hours inhalation (4) Intertrigo: Local application of clotrimazole ointment (5) PINEDA (acute kidney injury): Reviewed BUN, creatinine. PINEDA improved. Additional fluids held. (6) Septic shock: (7) Acute encephalopathy: Improved. Secondary to sepsis, septic shock, UTI Plan Anisocoria: Reported overnight by overnight physician. Noted history of cataract surgery. On exam currently no anisocoria. He has had some issues with his vision in the left eye for some time, feels may be progressing to cataract there as well. Cataract surgery previously on the right eye. Diarrhea: Per history obtained from his granddaughter multiple recent antibiotic courses, check C. difficile. Reviewed COVID PCR, negative. DVT prophylaxis: Lovenox Full code, however would not want prolonged life-sustaining measures in case of futility Attestations Medical Necessity Statement*: Continue admission for assessment management of complicated UTI after septic shock. Diagnoses Sepsis A41.9 Urinary tract infection N39.0 COPD (chronic obstructive pulmonary disease) J44.9 Intertrigo L30.4 PINEDA (acute kidney injury) N17.9 Septic shock A41.9; R65.21 Acute encephalopathy G93.40
[2023-07-08] VITALS (16 sets, daily range): BP systolic 97–146; BP diastolic 59–92; PULSE 79–112; RESP 16–30; TEMP 36.6–36.8; O2SAT 94–100
[2023-07-08] MEDS: vancomycin 750 MG in sodium chloride 0.9% 250 ML 250 MG IV (01:39)
[2023-07-08 03:44] LABS: Basophils % 0.4 %; Eosinophils # 0.2 10^3/uL (0.0-0.8); Eosinophils % 2.6 %; Hematocrit 28.9 % (37-53); Lymphocytes # 0.9 10^3/uL (0.8-4.8); Mean Corpuscular HGB Conc 31.8 g/dL (30-55); Mean Corpuscular Hemoglobin 29.5 pg (27-33); Mean Corpuscular Volume 92.6 fl (82-101); Mean Platelet Volume 9.2 fL (7.4-10.4); Monocytes # 0.4 10^3/uL (0.2-0.9); Monocytes % 6.2 %; Neutrophils # 4.25 10^3/uL (1.8-7.7); Neutrophils % 74.6 %; Nucleated Red Blood Cells % 0 %; Platelet Count 138 10^3/cmm (157-399); Red Blood Count 3.12 10^6/uL (3.85-5.65); Red Cell Distribution Width 13.3 % (12.1-15.1); White Blood Count 5.69 10^3/uL (3.29-11.43)
[2023-07-08 04:02] LABS: C Reactive Protein 91.7 mg/L (0.0-4.9)
[2023-07-08 04:03] LABS: Anion Gap 10.1 (5-19); Blood Urea Nitrogen 29 mg/dL (8-23); Carbon Dioxide 25 mmol/L (22-29); Chloride 116 mmol/L (98-107); Glucose 107 mg/dL (65-115); Osmolality Calculated 310 mOsm/kg (285-295); Potassium 4.1 mmol/L (3.5-5.1); Sodium 147 mmol/L (136-145)
[2023-07-08 04:07] LABS: Lactate (Lactic Acid level) 0.6 mmol/L (0.5-2.2)
[2023-07-08 04:08] LABS: Procalcitonin 2.69 ng/mL (0-0.5)
[2023-07-08] MEDS: enoxaparin 30 mg/0.3 mL Syringe SUBCUT (05:41)
[2023-07-08] MEDS: aspirin 81 mg Chew Tablet PO (05:42)
[2023-07-08] MEDS: meropenem 1,000 MG in sodium chloride 0.9% (plus) 50 ML 100 MG IV ×3 (05:42→21:08)
[2023-07-08] MEDS: OXcarbazepine 300 mg Tablet PO ×2 (08:34→17:44)
[2023-07-08] MEDS: gemfibrozil 600 mg Tablet PO (08:35)
[2023-07-08] MEDS: pantoprazole DR 40 mg Tablet PO (08:35)
[2023-07-08] MEDS: tamsulosin 0.4 mg Capsule PO (08:35)
[2023-07-08] MEDS: clotrimazole 1% cream 30 gm 1 APPLIC TOPICAL ×2 (08:35→17:44)
--- NOTE | 2023-07-08 21:53 | P.PN_ITS ---
Subjective 2 Subjective: He is doing slightly better. Denies pain or discomfort. No chest pain or pressure. No nausea vomiting or abdominal discomfort. Vitals/I&O/Wt Last Vital Signs Temp 98.2 F 07/08/23 08:50 Pulse 85 07/08/23 20:22 Resp 24 H 07/08/23 20:22 BP 105/67 07/08/23 20:22 Pulse Ox 96 07/08/23 20:22 O2 Del Method Nasal Cannula 07/08/23 18:14 O2 Flow Rate 2 07/08/23 08:50 07/08/23 07/08/23 07/08/23 06:59 14:59 22:59 Intake Total 300 / 300 236 / 236 250 / 486 Output Total 1500 / 1500 1000 / 1000 Balance -1200 / -1200 236 / 236 -750 / -514 Weight last 48 hrs Weight 60 kg Weight 58.876 kg Physical Exam 2 Const: COMMON NORMALS: patient oriented x3 and alert GENERAL APPEARANCE: c ooperative and frail appearing ORIENTATION/CONSCIOUSNESS: Yes awake HENMT: COMMON NORMALS: oropharynx normal Eye: OTHER: Pupils equal. Neck/C-Spine: COMMON NORMALS: no JVD Resp: COMMON NORMALS: normal respiratory effort and clear to auscultation bilaterally AUSCULTATION: clear to auscultation bilaterally Cardio: COMMON NORMALS: no JVD, regular rhythm, S1 normal heart sound present, S2 normal heart sound present and No murmurs present (Cardio) RHYTHM: regular rhythm HEART SOUNDS: S1 normal heart sound present and S2 normal heart sound present GI: COMMON NORMALS: Normal to inspection, nondistended, normoactive bowel sounds present, Soft to palpation and non-tender PALPATION: Yes Soft to palpation Extremity: COMMON NORMALS: no joint enlargement and no pedal edema Neuro: COMMON NORMALS: patient oriented x3 and moves all extremities S ENSORIUM/ORIENTATION: Yes alert Skin: COMMON NORMALS: no rashes or lesions noted GENERAL SKIN EXAM: no rashes or lesions noted Urinary Catheter Management: Grewal: Cath Placed During This Visit: yes Reason for Continuing Indwelling Catheter: Accurate Measurement of Urinary Output in Critically Ill Patients Urinary Catheter Date of Insertion: 07/07/23 Urinary Catheter Time of Insertion: 00:10 Data 07/08/23 03:04 07/08/23 03:04 A&P Assessment and plan (1) Sepsis: Reviewed vitals, CBC, BMP. Sepsis resolved. Hypotension improved. Has not required any further pressor. Continue care on medical surgical floor. Continue treatment of complicated UTI with multidrug-resistant organism. Continue meropenem. Monitor for risk of seizure. PT assessment. Discussed with rehabilitation caseworker. Reviewed PT note. Reviewed blood cultures, pending. Reviewed chest x-ray, add incentive spirometer. He is having some diarrhea, nausea, not vomiting. Reviewed COVID-19 PCR panel, negative. Recently with read attentive courses, check C. difficile. Cont meropenem for multidrug-resistant infection. Monitor for risk of seizure. Vancomycin for now. Check procalcitonin. Monitor for risk of kidney injury. Source is most likely to be urinary Suspect may have bladder outflow obstruction from enlarged prostate, would likely benefit from initiation of Flomax once blood pressure improves. Will also need urology referral eventually for cystoscopy and other urodynamic studies. No obstructive hydronephrosis on CT abdomen Renal ultrasound reviewed. (2) Urinary tract infection: As above (3) COPD (chronic obstructive pulmonary disease): Not currently exacerbated DuoNeb every 6 hours inhalation (4) Intertrigo: Local application of clotrimazole ointment (5) PINEDA (acute kidney injury): Reviewed BUN, creatinine. PINEDA improved. Additional fluids held. (6) Septic shock: (7) Acute encephalopathy: Improved. Secondary to sepsis, septic shock, UTI Plan Anisocoria: Reported overnight by overnight physician. Noted history of cataract surgery. On exam currently no anisocoria. He has had some issues with his vision in the left eye for some time, feels may be progressing to cataract there as well. Cataract surgery previously on the right eye. Diarrhea: C. difficile reviewed, so far uncollected. Per history obtained from his granddaughter multiple recent antibiotic courses, check C. difficile. Reviewed COVID PCR, negative. DVT prophylaxis: Lovenox Full code, however would not want prolonged life-sustaining measures in case of futility Attestations 2 Medical Necessity Statement*: Continue admission for assessment of management of complicated UTI. and High MDM includes amount and/or complexity of data reviewed/ordered [ previous or external records, resulted lab(s)/test(s), ordered lab(s)/test(s) and other healthcare professional discussion] and described risk of complication, morbidity or mortality of management as documented Diagnoses Sepsis A41.9 Urinary tract infection N39.0 COPD (chronic obstructive pulmonary disease) J44.9 Intertrigo L30.4 PINEDA (acute kidney injury) N17.9 Septic shock A41.9; R65.21 Acute encephalopathy G93.40
[2023-07-09] VITALS (12 sets, daily range): BP systolic 123–132; BP diastolic 72–79; PULSE 81–99; RESP 14–18; TEMP 36.4–37.2; O2SAT 90–98
[2023-07-09] MEDS: morphine 4 mg/mL SDV 1 mL 2 MG IVP (05:07)
[2023-07-09] MEDS: enoxaparin 30 mg/0.3 mL Syringe SUBCUT (05:08)
[2023-07-09] MEDS: aspirin 81 mg Chew Tablet PO (05:08)
[2023-07-09] MEDS: meropenem 1,000 MG in sodium chloride 0.9% (plus) 50 ML 100 MG IV ×3 (05:08→22:49)
[2023-07-09 05:24] LABS: Basophils % 0.3 %; Eosinophils # 0.3 10^3/uL (0.0-0.8); Eosinophils % 7.7 %; Hematocrit 28.5 % (37-53); Lymphocytes # 1.1 10^3/uL (0.8-4.8); Lymphocytes % 29.5 %; Mean Corpuscular HGB Conc 32.3 g/dL (30-55); Mean Corpuscular Hemoglobin 28.8 pg (27-33); Mean Corpuscular Volume 89.3 fl (82-101); Mean Platelet Volume 9.7 fL (7.4-10.4); Monocytes # 0.3 10^3/uL (0.2-0.9); Monocytes % 7.2 %; Nucleated Red Blood Cells % 0 %; Platelet Count 132 10^3/cmm (157-399); Red Blood Count 3.19 10^6/uL (3.85-5.65); Red Cell Distribution Width 13.2 % (12.1-15.1); White Blood Count 3.63 10^3/uL (3.29-11.43)
[2023-07-09 05:44] LABS: Lactate (Lactic Acid level) 0.7 mmol/L (0.5-2.2)
[2023-07-09 05:46] LABS: Anion Gap 11.6 (5-19); Blood Urea Nitrogen 22 mg/dL (8-23); C Reactive Protein 46.6 mg/L (0.0-4.9); Calcium 8.4 mg/dL (8.5-10.5); Carbon Dioxide 27 mmol/L (22-29); Chloride 112 mmol/L (98-107); Glucose 100 mg/dL (65-115); Osmolality Calculated 307 mOsm/kg (285-295); Potassium 3.6 mmol/L (3.5-5.1); Sodium 147 mmol/L (136-145)
[2023-07-09 05:51] LABS: Procalcitonin 1.41 ng/mL (0-0.5)
[2023-07-09] MEDS: tamsulosin 0.4 mg Capsule PO (09:57)
[2023-07-09] MEDS: pantoprazole DR 40 mg Tablet PO (09:57)
[2023-07-09] MEDS: gemfibrozil 600 mg Tablet PO (09:57)
[2023-07-09] MEDS: OXcarbazepine 300 mg Tablet PO ×2 (09:57→17:53)
[2023-07-09] MEDS: vancomycin 1,000 MG in sodium chloride 0.9% 250 ML 250 MG IV (10:04)
--- NOTE | 2023-07-09 11:22 | PC.SOCIAL ---
IMM Update pg 2 of IMM updated and reviewed w/ patient. Copy provided and copy dated, initialed and placed in chart.
--- NOTE | 2023-07-09 12:35 | PC.NURSE ---
Midline placed to left basilic vein. Referred to vascular access nurse for midline placement for 7 days IV antibiotics. Right IJ to be removed following midline placement. Discussed procedure with patient and with patient son, Juan, via phone. Risks and benefits discussed and informed consent obtained from patient. Left arm assessed with left basilic vein measuring 4.5 mm, straight, and apparent best choice for placement. Using sterile technique and MST, left basilic vein accessed x 1 stick. Mid-arm circumference measured 10 cm from left AC 24 cm. Trimmed cath 10 cm with tip ending approximately at axilla; 0 cm external length noted. Line secured with stat-lock. Insertion site covered with Biopatch and TSM. Report given to bedside nurseCheli.
[2023-07-09] MEDS: clotrimazole 1% cream 30 gm 1 APPLIC TOPICAL (17:53)
--- NOTE | 2023-07-09 19:47 | P.PN_ITS ---
Subjective 2 Subjective: She had just woken up, is not sure entirely of how he is doing. Denies new complaints. Has been working with physical therapy. Deconditioned. Vitals/I&O/Wt Last Vital Signs Temp 99 F 07/09/23 16:15 Pulse 99 07/09/23 16:15 Resp 18 07/09/23 16:15 BP 132/72 07/09/23 16:15 Pulse Ox 96 07/09/23 16:15 O2 Del Method Nasal Cannula 07/09/23 16:15 O2 Flow Rate 2 07/09/23 09:23 07/09/23 07/09/23 07/09/23 06:59 14:59 22:59 Intake Total 50 / 1712 1020 / 1020 480 / 1500 Output Total 700 / 1700 800 / 800 Balance -650 / 12 1020 / 1020 -320 / 700 Weight last 48 hrs Weight 60.555 kg Weight 60 kg Physical Exam 2 Const: COMMON NORMALS: patient oriented x3 and alert GENERAL APPEARANCE: c ooperative and frail appearing ORIENTATION/CONSCIOUSNESS: Yes awake HENMT: COMMON NORMALS: oropharynx normal Eye: OTHER: Pupils equal. Neck/C-Spine: COMMON NORMALS: no JVD Resp: COMMON NORMALS: normal respiratory effort and clear to auscultation bilaterally AUSCULTATION: clear to auscultation bilaterally Cardio: COMMON NORMALS: no JVD, regular rhythm, S1 normal heart sound present, S2 normal heart sound present and No murmurs present (Cardio) RHYTHM: regular rhythm HEART SOUNDS: S1 normal heart sound present and S2 normal heart sound present GI: COMMON NORMALS: Normal to inspection, nondistended, normoactive bowel sounds present, Soft to palpation and non-tender PALPATION: Yes Soft to palpation Extremity: COMMON NORMALS: no joint enlargement and no pedal edema Neuro: COMMON NORMALS: patient oriented x3 and moves all extremities S ENSORIUM/ORIENTATION: Yes alert Skin: COMMON NORMALS: no rashes or lesions noted GENERAL SKIN EXAM: no rashes or lesions noted Urinary Catheter Management: Grewal: Cath Placed During This Visit: yes Reason for Continuing Indwelling Catheter: Acute Urinary Retention or Obstruction Urinary Catheter Date of Insertion: 07/07/23 Urinary Catheter Time of Insertion: 00:10 Data 07/09/23 04:29 07/09/23 04:29 Micro: Microbiology 07/06/23 01:01 Blood Culture - Preliminary Blood 07/06/23 00:55 Blood Culture - Preliminary Blood A&P Assessment and plan (1) Sepsis: Reviewed vitals, CBC, BMP and procalcitonin. Afebrile, no leukocytosis, procalcitonin still elevated 1.41. Mild hyponatremia. Hypotension resolved. Continue antibiotic for complicated UTI with multidrug-resistant infection, continue meropenem, given lack of sensitivity to any oral antibiotics will need IV antibiotic, discussed with case management. Discussed with him placement of midline catheter, requested. At discharge complete 7-day course of antibiotic with ertapenem 1 g daily. Reviewed blood culture, so far negative. Discussed with casework manager. Continue treatment of complicated UTI with multidrug-resistant organism. Continue meropenem. Monitor for risk of seizure. PT assessment. Discussed with casework manager. Reviewed PT note. Reviewed blood cultures, pending. Reviewed chest x-ray, add incentive spirometer. He is having some diarrhea, nausea, not vomiting. Reviewed COVID-19 PCR panel, negative. Recently with read attentive courses, check C. difficile. Cont meropenem for multidrug-resistant infection. Monitor for risk of seizure. Vancomycin for now. Reviewed procalcitonin. Monitor for risk of kidney injury. Source is most likely to be urinary Suspect may have bladder outflow obstruction from enlarged prostate, would likely benefit from initiation of Flomax once blood pressure improves. Will also need urology referral eventually for cystoscopy and other urodynamic studies. No obstructive hydronephrosis on CT abdomen Renal ultrasound reviewed. (2) Urinary tract infection: As above (3) COPD (chronic obstructive pulmonary disease): Not currently exacerbated DuoNeb every 6 hours inhalation (4) Intertrigo: Local application of clotrimazole ointment (5) PINEDA (acute kidney injury): Reviewed BUN, creatinine -PINEDA resolved. Additional fluids held. (6) Septic shock: (7) Acute encephalopathy: Improved. Secondary to sepsis, septic shock, UTI Plan Physical deconditioning: Currently unable to manage independently, requires rehabilitation prior to being able to return home. Anisocoria: Reported overnight by overnight physician. Noted history of cataract surgery. On exam currently no anisocoria. He has had some issues with his vision in the left eye for some time, feels may be progressing to cataract there as well. Cataract surgery previously on the right eye. Diarrhea: C. difficile reviewed, so far uncollected. Per history obtained from his granddaughter multiple recent antibiotic courses, check C. difficile. Reviewed COVID PCR, negative. DVT prophylaxis: Lovenox Full code, however would not want prolonged life-sustaining measures in case of futility Attestations 2 Medical Necessity Statement*: Continue admission for assessment of management of complicated UTI, post discharge planning and arrangements. Diagnoses Sepsis A41.9 Urinary tract infection N39.0 COPD (chronic obstructive pulmonary disease) J44.9 Intertrigo L30.4 PINEDA (acute kidney injury) N17.9 Septic shock A41.9; R65.21 Acute encephalopathy G93.40
[2023-07-10] VITALS (12 sets, daily range): BP systolic 133–151; BP diastolic 79–86; PULSE 67–112; RESP 15–20; TEMP 36.4–36.8; O2SAT 94–98
[2023-07-10] MEDS: acetaminophen 325 mg Tablet 650 MG PO (00:29)
[2023-07-10] MEDS: ipratropium-albuterol 3 mL Neb INHALATION (01:29)
--- NOTE | 2023-07-10 01:49 | PC.NURSE ---
pt has coughing episode after taking tylenol, felt that one tab got stuck causing coughing, pt C/o having trouble catching breath, speech clear, 02 sat 94-96 with 02 @ 2L, BP elevated to 167/108 and pulse 130's, RT gave breathing treatment, Dr. Bravo notified and ordered for aspiration precaution and ST eval and treat, recheck BP in an hour, pt currently sitting up in bed no s/s of distress at this time,
[2023-07-10] MEDS: vancomycin 1,000 MG in sodium chloride 0.9% 250 ML 250 MG IV ×2 (02:24→20:43)
--- NOTE | 2023-07-10 02:31 | PC.NURSE ---
bp 149/74 breathing better, no coughing
[2023-07-10 05:29] LABS: Basophils % 0.6 %; Eosinophils # 0.1 10^3/uL (0.0-0.8); Eosinophils % 4.1 %; Hematocrit 28.7 % (37-53); Lymphocytes # 0.9 10^3/uL (0.8-4.8); Lymphocytes % 25.2 %; Mean Corpuscular HGB Conc 32.8 g/dL (30-55); Mean Corpuscular Hemoglobin 29.1 pg (27-33); Mean Corpuscular Volume 88.9 fl (82-101); Mean Platelet Volume 9.3 fL (7.4-10.4); Monocytes # 0.3 10^3/uL (0.2-0.9); Monocytes % 7.5 %; Neutrophils # 2.15 10^3/uL (1.8-7.7); Neutrophils % 62.3 %; Nucleated Red Blood Cells % 0 %; Platelet Count 121 10^3/cmm (157-399); Red Blood Count 3.23 10^6/uL (3.85-5.65); Red Cell Distribution Width 13.2 % (12.1-15.1); White Blood Count 3.45 10^3/uL (3.29-11.43)
[2023-07-10] MEDS: enoxaparin 30 mg/0.3 mL Syringe SUBCUT (05:55)
[2023-07-10] MEDS: aspirin 81 mg Chew Tablet PO (05:55)
[2023-07-10] MEDS: meropenem 1,000 MG in sodium chloride 0.9% (plus) 50 ML 100 MG IV ×3 (05:55→21:47)
[2023-07-10 05:56] LABS: Anion Gap 8.9 (5-19); Blood Urea Nitrogen 20 mg/dL (8-23); Calcium 8.6 mg/dL (8.5-10.5); Carbon Dioxide 29 mmol/L (22-29); Chloride 115 mmol/L (98-107); Glucose 121 mg/dL (65-115); Osmolality Calculated 312 mOsm/kg (285-295); Potassium 3.9 mmol/L (3.5-5.1); Sodium 149 mmol/L (136-145)
[2023-07-10] MEDS: pantoprazole DR 40 mg Tablet PO (08:42)
[2023-07-10] MEDS: clotrimazole 1% cream 30 gm 1 APPLIC TOPICAL ×2 (08:42→18:14)
[2023-07-10] MEDS: OXcarbazepine 300 mg Tablet PO ×2 (08:42→18:14)
[2023-07-10] MEDS: tamsulosin 0.4 mg Capsule PO (08:42)
[2023-07-10] MEDS: gemfibrozil 600 mg Tablet PO (08:49)
[2023-07-10] MEDS: ondansetron 2 mg/ML SDV 2 mL 4 MG IVP (18:21)
--- NOTE | 2023-07-10 21:39 | PM.PN ---
Subjective Subjective: Working with occupational therapy. Does get dyspneic with exertion. Vitals/I&O/Wt Last Vital Signs Temp 98.3 F 07/10/23 20:00 Pulse 85 07/10/23 20:00 Resp 17 07/10/23 20:00 BP 144/86 07/10/23 20:00 Pulse Ox 97 07/10/23 20:00 O2 Del Method Nasal Cannula 07/10/23 20:00 O2 Flow Rate 5 07/10/23 20:00 07/10/23 07/10/23 07/10/23 06:59 14:59 22:59 Intake Total 350 / 1850 480 / 480 50 / 530 Output Total 300 / 1550 Balance 50 / 300 480 / 480 50 / 530 Weight last 48 hrs Weight 64.58 kg Weight 60.555 kg Physical Exam Const: COMMON NORMALS: patient oriented x3 and alert GENERAL APPEARANCE: cooperative and frail appearing ORIENTATION/CONSCIOUSNESS: Yes awake HENMT: COMMON NORMALS: oropharynx normal Eye: OTHER: Pupils equal. Neck/C-Spine: COMMON NORMALS: no JVD Resp: COMMON NORMALS: normal respiratory effort and clear to auscultation bilaterally AUSCULTATION: clear to auscultation bilaterally Cardio: COMMON NORMALS: no JVD, regular rhythm, S1 normal heart sound present, S2 normal heart sound present and No murmurs present (Cardio) RHYTHM: regular rhythm HEART SOUNDS: S1 normal heart sound present and S2 normal heart sound present GI: COMMON NORMALS: Normal to inspection, nondistended, normoactive bowel sounds present, Soft to palpation and non-tender PALPATION: Yes Soft to palpation Extremity: COMMON NORMALS: no joint enlargement and no pedal edema Neuro: COMMON NORMALS: patient oriented x3 and moves all extremities SENSORIUM/ORIENTATION: Yes alert Skin: COMMON NORMALS: no rashes or lesions noted GENERAL SKIN EXAM: no rashes or lesions noted Urinary Catheter Management: Grewal: Cath Placed During This Visit: yes Reason for Continuing Indwelling Catheter: Acute Urinary Retention or Obstruction Urinary Catheter Date of Insertion: 07/07/23 Urinary Catheter Time of Insertion: 00:10 Data 07/10/23 04:58 07/10/23 04:58 A&P Assessment and plan (1) Dyspnea on exertion: Obtain chest x-ray. Resume Lasix. Did receive fluid resuscitation, possible decompensated CHF/fluid overload. Additionally underlying COPD. Will add scheduled DuoNebs. Start budesonide. Reviewed vitals, CBC, no leukocytosis. Reviewed hemoglobin, anemia, unchanged. Reviewed platelets, slightly worse 121. Repeat CBC. Reviewed kidney function, PINEDA resolved. (2) COPD (chronic obstructive pulmonary disease): With dyspnea on exertion. Add scheduled DuoNeb. Start budesonide. Continue DuoNeb as needed. (3) Sepsis: Discussed with registered nurse hh case manager. Hypotension resolved. Continue antibiotic for complicated UTI with multidrug-resistant infection, continue meropenem, given lack of sensitivity to any oral antibiotics will need IV antibiotic, discussed with case management. Discussed with him placement of midline catheter, requested. At discharge complete 7-day course of antibiotic with ertapenem 1 g daily. Reviewed blood culture, so far negative. Discussed with registered nurse hh case manager. Continue treatment of complicated UTI with multidrug-resistant organism. Continue meropenem. Monitor for risk of seizure. PT assessment. Discussed with registered nurse hh case manager. Reviewed PT note. Reviewed blood cultures, pending. Reviewed chest x-ray, add incentive spirometer. He is having some diarrhea, nausea, not vomiting. Reviewed COVID-19 PCR panel, negative. Recently with read attentive courses, check C. difficile. Cont meropenem for multidrug-resistant infection. Monitor for risk of seizure. Vancomycin for now. Reviewed procalcitonin. Monitor for risk of kidney injury. Source is most likely to be urinary Suspect may have bladder outflow obstruction from enlarged prostate, would likely benefit from initiation of Flomax once blood pressure improves. Will also need urology referral eventually for cystoscopy and other urodynamic studies. No obstructive hydronephrosis on CT abdomen Renal ultrasound reviewed. (4) Urinary tract infection: As above (5) Intertrigo: Local application of clotrimazole ointment (6) PINEDA (acute kidney injury): PINEDA resolved. Resume Lasix. (7) Septic shock: (8) Acute encephalopathy: Improved. Secondary to sepsis, septic shock, UTI Plan Physical deconditioning: Discussed with registered nurse hh case manager. Continue therapy. Currently unable to manage independently, requires rehabilitation prior to being able to return home. Anisocoria: Reported overnight by overnight physician. Noted history of cataract surgery. On exam currently no anisocoria. He has had some issues with his vision in the left eye for some time, feels may be progressing to cataract there as well. Cataract surgery previously on the right eye. Diarrhea: resolved DVT prophylaxis: Lovenox Full code, however would not want prolonged life-sustaining measures in case of futility Attestations Medical Necessity Statement*: Continue admission for assessment of management of complicated UTI, post discharge planning and arrangements. Diagnoses Dyspnea on exertion R06.09 COPD (chronic obstructive pulmonary disease) J44.9 Sepsis A41.9 Urinary tract infection N39.0 Intertrigo L30.4 PINEDA (acute kidney injury) N17.9 Septic shock A41.9; R65.21 Acute encephalopathy G93.40
[2023-07-10] MEDS: latanoprost 0.005% Op Soln 2.5 mL Btl 1 DROP EYE-BOTH (22:28)
[2023-07-11] VITALS (9 sets, daily range): BP systolic 127–153; BP diastolic 76–89; PULSE 78–91; RESP 16–17; TEMP 36.3–36.8; O2SAT 96–99
[2023-07-11] MEDS: ipratropium-albuterol 3 mL Neb INHALATION ×2 (01:08→09:17)
[2023-07-11 04:56] LABS: Basophils % 0.7 %; Eosinophils # 0.3 10^3/uL (0.0-0.8); Eosinophils % 6.8 %; Hematocrit 30.1 % (37-53); Lymphocytes # 1.3 10^3/uL (0.8-4.8); Lymphocytes % 32.1 %; Mean Corpuscular HGB Conc 32.9 g/dL (30-55); Mean Corpuscular Hemoglobin 29.3 pg (27-33); Mean Corpuscular Volume 89.1 fl (82-101); Monocytes # 0.3 10^3/uL (0.2-0.9); Monocytes % 7.5 %; Neutrophils # 2.17 10^3/uL (1.8-7.7); Neutrophils % 52.4 %; Nucleated Red Blood Cells % 0 %; Platelet Count 133 10^3/cmm (157-399); Red Blood Count 3.38 10^6/uL (3.85-5.65); Red Cell Distribution Width 13.2 % (12.1-15.1); White Blood Count 4.14 10^3/uL (3.29-11.43)
[2023-07-11] MEDS: aspirin 81 mg Chew Tablet PO (05:03)
[2023-07-11] MEDS: enoxaparin 30 mg/0.3 mL Syringe SUBCUT (05:03)
[2023-07-11] MEDS: meropenem 1,000 MG in sodium chloride 0.9% (plus) 50 ML 100 MG IV (05:04)
[2023-07-11 05:21] LABS: Anion Gap 9.8 (5-19); Blood Urea Nitrogen 16 mg/dL (8-23); Calcium 8.8 mg/dL (8.5-10.5); Carbon Dioxide 30 mmol/L (22-29); Chloride 114 mmol/L (98-107); Glucose 108 mg/dL (65-115); Osmolality Calculated 312 mOsm/kg (285-295); Potassium 3.8 mmol/L (3.5-5.1); Sodium 150 mmol/L (136-145)
--- NOTE | 2023-07-11 06:00 | XR_ITS ---
WS: [id number] Exam: XR chest 1V portable [id number] Date/Time of Exam: 07/11/2023 7:06 AM Reason For Exam: Hypoxia Comparison 07/06/2023. There is airspace infiltrate and atelectasis in the RIGHT lower lobe. Small bibasal pleural effusions have developed. There is also probable consolidating infiltrate in the LEFT lower lobe. Cardiomedias tinal silhouette is unremarkable. No pneumothorax. Bony structures are intact. Previously noted RIGHT IJ catheter has been removed. IMPRESSION: 1. Bilateral basal infiltrates with associated atelectasis and bilateral small pleural effusions. Sig nificant change since prior study.
[2023-07-11] MEDS: gemfibrozil 600 mg Tablet PO (08:06)
[2023-07-11] MEDS: pantoprazole DR 40 mg Tablet PO (08:06)
[2023-07-11] MEDS: FUROsemide 20 mg Tablet PO (08:06)
[2023-07-11] MEDS: tamsulosin 0.4 mg Capsule PO (08:06)
[2023-07-11 08:07] LABS: SARS Covid-2 Antigen negative (Negative)
[2023-07-11] MEDS: clotrimazole 1% cream 30 gm 1 APPLIC TOPICAL (08:08)
[2023-07-11] MEDS: OXcarbazepine 300 mg Tablet PO (08:10)
--- NOTE | 2023-07-11 09:08 | PC.SOCIAL ---
IMM Update pg 2 of IMM updated and reviewed w/ patient. Copy provided and copy dated, initialed and placed in chart.
[2023-07-11] MEDS: budesonide 0.5 mg/2 mL Neb INHALATION (09:17)
[2023-07-11] MEDS: ertapenem 1,000 MG in sodium chloride 0.9% (plus) 100 ML 200 MG IV (10:41)
--- NOTE | 2023-07-11 11:30 | PC.NURSE ---
Patient's Grewal Catheter removed at this time. Patient tolerated well.
--- NOTE | 2023-07-11 12:04 | PC.NURSE ---
Attempted x2 to call report to [place] unable to get anyone to corn picker the phone once transferred
--- NOTE | 2023-07-11 12:24 | PC.NURSE ---
Report called to [place] at this time to Vesta FULTON.
--- NOTE | 2023-07-11 18:29 | PM.DCS ---
Discharge Providers Date of Admission: 07/06/23 03:00 Date of Discharge: July 11, 2023 Attending Provider at Admission: Maribel Lambert MD Attending Provider at Discharge: Watson Mccoy Primary Care Provider: Marlin Jesus NP Diagnoses at Discharge Discharge Diagnosis (1) Dyspnea on exertion: Status: Acute (2) COPD (chronic obstructive pulmonary disease): Status: Acute (3) Sepsis: Status: Acute (4) Urinary tract infection: Status: Acute (5) Intertrigo: Status: Acute (6) PINEDA (acute kidney injury): Status: Acute (7) Septic shock: Status: Acute (8) Acute encephalopathy: Status: Acute Reason for Visit Reason for Visit: Possible UTI Low BP Hospital Course Hospital Course 87-year-old male with a 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 Septic shock gradually resolved. He weaned off pressors. Acute encephalopathy on presentation has been improving. PINEDA on presentation, has been resolving. Please follow-up renal function. Kidney and bladder ultrasound with finding of mildly distended thick-walled urinary bladder suggesting muscular hypertrophy. Bladder outlet obstruction not excluded. No hydronephrosis. He had a voiding trial prior to discharge. He is asked to follow-up with urology for additional assessment after multidrug-resistant UTI. Arrangements were made for him to go to skilled nurse facility for physical rehabilitation prior to return home. Physical Exam Narrative: Reports he has felt somewhat sore in his leg muscles but this responded to Tylenol. He is looking forward to rehabilitation to rebuild his strength and stamina. Const: COMMON NORMALS: patient oriented x3 and alert GENERAL APPEARANCE: cooperative and frail appearing ORIENTATION/CONSCIOUSNESS: Yes awake HENMT: COMMON NORMALS: oropharynx normal Eye: OTHER: Pupils equal. Neck/C-Spine: COMMON NORMALS: no JVD Resp: COMMON NORMALS: normal respiratory effort and clear to auscultation bilaterally AUSCULTATION: clear to auscultation bilaterally Cardio: COMMON NORMALS: no JVD, regular rhythm, S1 normal heart sound present, S2 normal heart sound present and No murmurs present (Cardio) RHYTHM: regular rhythm HEART SOUNDS: S1 normal heart sound present and S2 normal heart sound present GI: COMMON NORMALS: Normal to inspection, nondistended, normoactive bowel sounds present, Soft to palpation and non-tender PALPATION: Yes Soft to palpation Extremity: COMMON NORMALS: no joint enlargement and no pedal edema Neuro: COMMON NORMALS: patient oriented x3 and moves all extremities SENSORIUM/ORIENTATION: Yes alert Skin: COMMON NORMALS: no rashes or lesions noted GENERAL SKIN EXAM: no rashes or lesions noted Urinary Catheter Management: Grewal: Cath Placed During This Visit: yes Reason for Continuing Indwelling Catheter: Other Urinary Catheter Date of Insertion: 07/07/23 Urinary Catheter Time of Insertion: 00:10 Discharge Data Studies Completed and Pending Completed Studies During Hospitalization Category Date Time Status CXRP [XR chest 1V portable [id number]] Routine Exams 07/06/23 22:53 Completed CXRP [XR chest 1V portable [id number]] Stat Exams 07/06/23 01:44 Completed XR chest 1V portable [id number] Routine Exams 07/11/23 06:00 Completed XR chest 1V portable [id number] Stat Exams 07/06/23 00:21 Completed US renal BI* [id number] Stat Ultrasound 07/06/23 08:18 Completed Pending at discharge Category Date Time Status Blood Cultures ([facility]) Routine Lab 07/06/23 00:55 Results Blood Cultures ([facility]) Routine Lab 07/06/23 01:01 Results Radiology Impressions Renal Ultrasound 07/06/23 08:18 IMPRESSION: 1. No hydronephrosis. 2. Mildly distended thick-walled urinary bladder suggesting muscular hypertrophy. Bladder outlet obstruction is not excluded. Consider follow-up ultrasound evaluation of postvoid residual volume if there is clinical concern for bladder outlet obstruction. 3. Subtle echogenic interface in the dependent portion of the bladder suggests layering intraluminal debris or blood. Laboratory Results WBC 4.14 10^3/uL (3.29-11.43) 07/11/23 04:30 RBC 3.38 10^6/uL (3.85-5.65) L 07/11/23 04:30 Hgb 9.90 g/dL (11.27-16.99) L 07/11/23 04:30 Hct 30.1 % (37-53) L 07/11/23 04:30 MCV 89.1 fl (82-101) 07/11/23 04:30 MCH 29.3 pg (27-33) 07/11/23 04:30 MCHC 32.9 g/dL (30-55) 07/11/23 04:30 RDW 13.2 % (12.1-15.1) 07/11/23 04:30 Plt Count 133 10^3/cmm (157-399) L 07/11/23 04:30 MPV 9.0 fL (7.4-10.4) 07/11/23 04:30 Neut % (Auto) 52.4 % 07/11/23 04:30 Lymph % (Auto) 32.1 % 07/11/23 04:30 [place] % (Auto) 7.5 % 07/11/23 04:30 Eos % (Auto) 6.8 % 07/11/23 04:30 Baso % (Auto) 0.7 % 07/11/23 04:30 Neut # (Auto) 2.17 10^3/uL (1.8-7.7) 07/11/23 04:30 Lymph # (Auto) 1.3 10^3/uL (0.8-4.8) 07/11/23 04:30 [place] # (Auto) 0.3 10^3/uL (0.2-0.9) 07/11/23 04:30 Eos # (Auto) 0.3 10^3/uL (0.0-0.8) 07/11/23 04:30 Baso # (Auto) 0.0 10^3/uL (0.0-0.1) 07/11/23 04:30 Nucleated RBC % (auto) 0 % 07/11/23 04:30 Nucleated RBCs # 0.0 /100WBC 07/11/23 04:30 Sodium 150 mmol/L (136-145) H 07/11/23 04:30 Potassium 3.8 mmol/L (3.5-5.1) 07/11/23 04:30 Chloride 114 mmol/L (98-107) H 07/11/23 04:30 Carbon Dioxide 30 mmol/L (22-29) H 07/11/23 04:30 Anion Gap 9.8 (5-19) 07/11/23 04:30 BUN 16 mg/dL (8-23) 07/11/23 04:30 Creatinine 0.5 mg/dL (0.7-1.2) L 07/11/23 04:30 GFR Calculation Not Reportable 07/11/23 04:30 Glucose 108 mg/dL (65-115) 07/11/23 04:30 Calculated Osmolality 312 mOsm/kg (285-295) H 07/11/23 04:30 Lactic Acid 2.0 mmol/L (0.5-2.2) 07/06/23 01:01 Lactate 0.7 mmol/L (0.5-2.2) 07/09/23 05:15 Calcium 8.8 mg/dL (8.5-10.5) 07/11/23 04:30 Phosphorus 2.9 mg/dL (2.5-4.5) 07/07/23 03:00 Magnesium 2.1 mg/dL (1.7-2.3) 07/07/23 03:00 Total Bilirubin 0.2 mg/dL (0.15-1.2) 07/07/23 03:00 AST 58 U/L (0-40) H 07/07/23 03:00 ALT 21 U/L (0-41) 07/07/23 03:00 Alkaline Phosphatase 91 U/L (40-130) 07/07/23 03:00 C-Reactive Protein 46.6 mg/L (0.0-4.9) H 07/09/23 04:29 C-Reactive Protein Cancelled 07/09/23 04:29 Total Protein 5.9 g/dL (6.6-8.7) L 07/07/23 03:00 Albumin 3.3 g/dL (3.5-5.2) L 07/07/23 03:00 Globulin 2.6 g/dL (1.3-4.6) 07/07/23 03:00 Procalcitonin 1.41 ng/mL (0-0.5) H 07/09/23 04:29 Procalcitonin Cancelled 07/09/23 04:29 Urine Color Dark yellow (Yellow) 07/06/23 04:00 Urine Appearance Hazy (CLEAR) A 07/06/23 04:00 Urine pH 5 (5-7) 07/06/23 04:00 Ur Specific [place] 1.015 (1.005-1.030) 07/06/23 04:00 Urine Protein 1+ (Negative) H 07/06/23 04:00 Urine Glucose (UA) Norm (Normal) 07/06/23 04:00 Urine Ketones Negative (Negative) 07/06/23 04:00 Urine Blood Trace (Negative) H 07/06/23 04:00 Urine Nitrate Negative (Negative) 07/06/23 04:00 Urine Bilirubin Neg (Negative) 07/06/23 04:00 Urine Urobilinogen Norm mg/dL (Negative) 07/06/23 04:00 Ur Leukocyte Esterase 2+ (Negative) H 07/06/23 04:00 Urine RBC 0-4 /hpf (0-2) H 07/06/23 04:00 Urine WBC >100 /hpf (0-5) H 07/06/23 04:00 Ur Squamous Epith Cells 0-4 /hpf (0-5) H 07/06/23 04:00 Amorphous Sediment Not Reportable 07/06/23 04:00 Urine Bacteria 1+ /hpf (NONE) H 07/06/23 04:00 Urine Mucus Trace /hpf 07/06/23 04:00 SARS-CoV-2 Ag (Rapid) negative (Negative) 07/11/23 07:31 Vitals Last Vital Signs Temp 98.3 F 07/11/23 13:10 Pulse 87 07/11/23 13:10 Resp 16 07/11/23 13:10 BP 153/89 07/11/23 13:10 Pulse Ox 96 07/11/23 13:10 O2 Del Method Nasal Cannula 07/11/23 11:45 O2 Flow Rate 2 07/11/23 09:17 Discharge Plan Discharge Patient Disposition: Xfer SNF Condition: Fair Prescriptions: New ertapenem 1 gram recon soln 1 g IM DAILY 5 Days Qty: 5 0RF Continued losartan 100 mg tablet 100 mg PO DAILY gemfibrozil 600 mg tablet 600 mg PO DAILY clonidine HCl 0.1 mg tablet 0.1 mg PO DAILY PRN (Reason: Hypertension) metoprolol tartrate 100 mg tablet 100 mg PO BID oxcarbazepine 300 mg tablet 300 mg PO BID aspirin 81 mg Tablet,Chewable 81 mg PO QAM Centrum Silver Men 300-600-300 mcg Tablet 1 tab PO DAILY ipratropium-albuterol 0.5 mg-3 mg(2.5 mg base)/3 mL solution for nebulization 3 ml inhalation Q4H PRN (Reason: shortness of breath or wheezing) Qty: 90 0RF budesonide-formoterol [Symbicort] 80-4.5 mcg/actuation HFA aerosol inhaler 2 puff inhalation BID Qty: 10.2 0RF latanoprost 0.005 % drops 1 drp ophthalmic (eye) BEDTIME acetaminophen 500 mg Tablet 1,000 mg PO Q6H PRN (Reason: Pain) albuterol sulfate 90 mcg/actuation HFA aerosol inhaler 2 puff INHALATION QID PRN (Reason: Shortness Of Breath) tamsulosin 0.4 mg capsule 0.4 mg PO DAILY Qty: 30 0RF hydralazine 10 mg tablet 10 mg PO DAILY amlodipine 5 mg tablet 5 mg PO DAILY mupirocin 2 % ointment 1 applic TOPICAL TID potassium chloride 20 mEq tablet,ER particles/crystals 20 meq PO DAILY furosemide 20 mg tablet 20 mg PO DAILY Rx Instructions: may take extra tab at noon if needed Discontinued ciprofloxacin HCl [Cipro] 500 mg tablet 500 mg PO BID Qty: 20 0RF Discharge Orders: Discharge Order (Routine); Ordered 07/11/23 Ordered By: Watson Mccoy Referrals: Primary, provider [Other] - 4-7 days Urology, clinic [Other] - 1 week [facility] [Outside] Discharge Diet: As Directed and Cardiac Discharge Activity: As per PT/OT instructions and Oxygen as instructed Patient Instructions: Ertapenem (By injection) Activity Restrictions/Additional Instructions: Dysphagia level 6 diet, soft and bite sized diet. Cardiac. Maintain aspiration precautions. Complete antibiotic course for complicated UTI with ertapenem. Remove midline catheter once done. Follow up with urology for further assessment. Continue O2 2L NC, target saturaiton 92%. Wean off as tolerating. Have our primary provider follow up your kidney function. Discharge Attestations Time Spent in Discharge Care*: greater than 30 min Quality Metrics Clinical Quality Measures [ No reported AMI, CVA or VTE this stay] Coding Level of Care Code 31527 Total time (in minutes) for Discharge: 40 Diagnoses Dyspnea on exertion R06.09 COPD (chronic obstructive pulmonary disease) J44.9 Sepsis A41.9 Urinary tract infection N39.0 Intertrigo L30.4 PINEDA (acute kidney injury) N17.9 Septic shock A41.9; R65.21 Acute encephalopathy G93.40
== END 2023-07-11 12:30 | disposition skilled nursing facility (03) | DRG 871 ==
LOC: ER 00:17 → ICU 03:00 → MEDSURG 07-08 21:34
PROVIDERS: Family Medicine; Internal Medicine; Admitting Provider Student in an Organized Health Care Education/Training Program; Emergency Provider Emergency Medicine; PCP Nurse Practitioner Family; Visit Provider Internal Medicine
DX: A41.9 Sepsis, unspecified organism (principal); G93.41 Metabolic encephalopathy; R65.21 Severe sepsis with septic shock; N17.9 Acute kidney failure, unspecified; Z16.12 Extended spectrum beta lactamase (ESBL) resistance; N39.0 Urinary tract infection, site not specified; I13.0 Hypertensive heart and chronic kidney disease with heart failure and stage 1 through stage 4 chronic kidney disease, or unspecified chronic kidney disease; I50.32 Chronic diastolic (congestive) heart failure; N13.8 Other obstructive and reflux uropathy; E86.0 Dehydration; J44.9 Chronic obstructive pulmonary disease, unspecified; I27.20 Pulmonary hypertension, unspecified; N18.9 Chronic kidney disease, unspecified; Z87.891 Personal history of nicotine dependence; Z86.73 Personal history of transient ischemic attack (TIA), and cerebral infarction without residual deficits; E78.5 Hyperlipidemia, unspecified; F41.9 Anxiety disorder, unspecified; Z85.46 Personal history of malignant neoplasm of prostate; L30.4 Erythema intertrigo; Z20.822 Contact with and (suspected) exposure to COVID-19; R19.7 Diarrhea, unspecified; D64.9 Anemia, unspecified; N40.1 Benign prostatic hyperplasia with lower urinary tract symptoms; Z87.440 Personal history of urinary (tract) infections
CPT/HCPCS: 36415; 36556; 36569; 36573; 36592; 51702; 51798; 71045; 74176; 76770; 80048; 80053; 81001; 83605; 83690; 83735; 84100; 84145; 85025; 86140; 87040; 87077; 87086; 87186; 87426; 87635; 92523; 92610; 93005; 94640; 96361; 96365; 96367; 96372; 96375; 96376; 97110; 97116; 97161; 97167; 97530; 97535; 99285; C1751; J0696; J1335; J1650; J2060; J2185; J2270; J2405; J3370; J3490; J7030; J7050; J7626

== ENCOUNTER 2023-07-27 17:55 | Emergency (ER) | payer MEDICARE, SELFPAY ==
[2023-07-27 17:59] VITALS: BP 118/74; PULSE 78; RESP 18; TEMP 37; O2SAT 90; BMI 20.3
--- NOTE | 2023-07-27 18:10 | XRR_ITS ---
PROCEDURE INFORMATION: Exam: XR Chest Exam date and time: 07/27/2023 6:17 PM Age: 87 years old Clinical indication: Patient HX: -cough; Fever; Chest congestion TECHNIQUE: Imaging protocol: Radiologic exam of the chest. Views: 1 view. COMPARISON: CR XR chest 1V portable [id number] 07/11/2023 7:16 AM FINDINGS: Lungs: Unremarkable. Left lower lobe opacity. Improvement of a right lower lobe consolidation. Pleural spaces: Unremarkable. No pleural effusion. No pneumothorax. Heart/Mediastinum: Unremarkable. No cardiomegaly. Bones/joints: Unremarkable. XR/XR chest 1V portable [id number] IMPRESSION: Left lower lobe opacity likely representing effusion versus atelectatic lung changes. Improvement of the previously described right lower lobe consolidation.
--- NOTE | 2023-07-27 18:11 | ED_ITS ---
Documented by User: ELVIA Wahl 07/27/23 19:52 HPI - SOB/Dyspnea 2 General: Chief Complaint: Shortness of Breath/Dyspnea Stated Complaint: SOB; FEVER Time Seen by Provider: 07/27/23 17:59 History of Present Illness: HPI Narrative: 87-year-old male patient comes in today for complaints of fever of 100 and 100.4 today at [facility]. Patient is residing at the facility for rehab. Patient has had 2 episodes of urosepsis. Patient also has a history of COPD. Patient appears alert and oriented. Patient is little hard of hearing. Patient wears oxygen at all times at 2-1/2 L/min. Patient denies pain and appears in no pain. Associated symptoms: Reports fever(s) Review of Systems 2 General: Reports: 10 or more systems reviewed and unremarkable except in HPI and below Const: Reports: fever(s) [facility] ED 2 PFSH: Medical History (Updated 07/27/23 @ 19:46 by ELVIA Wahl) Septic shock UTI (urinary tract infection) COPD exacerbation Acute exacerbation of chronic obstructive airways disease Pulmonary hypertension Diastolic congestive heart failure History of CVA (cerebrovascular accident) Hyperlipidemia Anxiety History of seizure disorder Hypertension History of seizures COPD (chronic obstructive pulmonary disease) Prostate CA Status post radiation Surgical History History of excision of lesion L neck History of cataract surgery History of tonsillectomy Family History Mother , 98, healthy No problems noted. Father CAD (coronary artery disease) Social History Smoking and tobacco/nicotine status: former use of tobacco/nicotine Quit status (tobacco/nicotine): has quit using Year quit tobacco: 20 years ago Second hand smoke exposure: No Alcohol intake: never Substance/Drug Use: never Lives independently: Yes Household members: none Physical Exam 2 Const: COMMON NORMALS: alert HENMT: COMMON NORMALS: normocephalic HEAD & SCALP: normocephalic Neck/C-Spine: COMMON NORMALS: full ROM Chest: COMMONS NORMALS: normal inspection of the chest Resp: EFFORT & INSPECTION: Yes other (Answers in short sentences) A USCULTATION: rhonchi and diminished lung sounds Cardio: COMMON NORMALS: regular rate RATE: regular rate GI: COMMON NORMALS: Soft to palpation and non-tender PALPATION: Yes Soft to palpation : COMMON NORMALS: Yes no CVA tenderness BLADDER/KIDNEY EXAM: Yes no CVA tenderness Back/Pelvis: COMMON NORMALS: no CVA tenderness Extremity: NARRATIVE EXTREMITY EXAM: +1 pitting edema to bilateral lower extr emities Neuro: SENSORIUM/ORIENTATION: Yes alert Skin: COMMON NORMALS: turgor normal GENERAL SKIN EXAM: turgor normal Course 2 Vital Signs: Vital signs: Vital Signs Temperature 98.6 F 07/27/23 17:59 Pulse Rate 77 07/27/23 19:58 Respiratory Rate 18 07/27/23 19:58 Blood Pressure 136/82 07/27/23 19:54 Pulse Oximetry 95 07/27/23 19:58 Oxygen Delivery Me thod Nasal Cannula 07/27/23 19:58 Oxygen Flow Rate 3 07/27/23 19:58 MDM - SOB/Dyspnea Medical Decision Making 87-year-old male patient was sent over from detention for concerns of elevated temperature. They reported to fevers today in the low 100s. On exam respirations are even with some decreased breath sounds and rhonchus noise. Patient does have some productive yellowish-green sputum. Vital signs are normal. Differential diagnosis includes not limited to pneumonia, upper respiratory infection, urinary tract infection, dehydration. CBC showed a white count of 10,000, CMP was unremarkable except for some mild decrease in potassium at 3.1. Urinalysis was normal. Chest x-ray noted a consolidated pneumonia in the left lower lung. Patient be started on Levaquin 500 mg daily for the next 7 days. Patient will continue with his routine breathing treatments and medications for his COPD. Courage fluids. Follow-up with primary care. Return to ER for worsening symptoms. Reviewed patient and exam with Dr. Humphries who agreed with plan. Lab Data 07/27/23 18:20 07/27/23 18:20 Labs/Radiology: Radiology Impressions Chest X-Ray 07/27/23 18:10 IMPRESSION: Left lower lobe opacity likely representing effusion versus atelectatic lung changes. Improvement of the previously described right lower lobe consolidation. Laboratory Results WBC 10.43 10^3/uL (3.29-11.43) 07/27/23 18:20 RBC 3.67 10^6/uL (3.85-5.65) L 07/27/23 18:20 Hgb 10.70 g/dL (11.27-16.99) L 07/27/23 18:20 Hct 32.9 % (37-53) L 07/27/23 18:20 MCV 89.6 fl (82-101) 07/27/23 18:20 MCH 29.2 pg (27-33) 07/27/23 18:20 MCHC 32.5 g/dL (30-55) 07/27/23 18:20 RDW 14.7 % (12.1-15.1) 07/27/23 18:20 Plt Count 165 10^3/cmm (157-399) 07/27/23 18:20 MPV 9.1 fL (7.4-10.4) 07/27/23 18:20 Neut % (Auto) 83.8 % 07/27/23 18:20 Lymph % (Auto) 9.9 % 07/27/23 18:20 Blair % (Auto) 5.4 % 07/27/23 18:20 Eos % (Auto) 0.1 % 07/27/23 18:20 Baso % (Auto) 0.4 % 07/27/23 18:20 Neut # (Auto) 8.75 10^3/uL (1.8-7.7) H 07/27/23 18:20 Lymph # (Auto) 1.0 10^3/uL (0.8-4.8) 07/27/23 18:20 Blair # (Auto) 0.6 10^3/uL (0.2-0.9) 07/27/23 18:20 Eos # (Auto) 0.0 10^3/uL (0.0-0.8) 07/27/23 18:20 Baso # (Auto) 0.0 10^3/uL (0.0-0.1) 07/27/23 18:20 Nucleated RBC % (auto) 0 % 07/27/23 18:20 Nucleated RBCs # 0.0 /100WBC 07/27/23 18:20 Sodium 138 mmol/L (136-145) 07/27/23 18:20 Potassium 3.1 mmol/L (3.5-5.1) L 07/27/23 18:20 Chloride 99 mmol/L (98-107) 07/27/23 18:20 Carbon Dioxide 28 mmol/L (22-29) 07/27/23 18:20 Anion Gap 14.1 (5-19) 07/27/23 18:20 BUN 30 mg/dL (8-23) H 07/27/23 18:20 Creatinine 0.9 mg/dL (0.7-1.2) 07/27/23 18:20 GFR Calculation Not Reportable 07/27/23 18:20 Glucose 112 mg/dL (65-115) 07/27/23 18:20 Calculated Osmolality 293 mOsm/kg (285-295) 07/27/23 18:20 Lactic Acid 1.7 mmol/L (0.5-2.2) 07/27/23 18:20 Calcium 8.9 mg/dL (8.5-10.5) 07/27/23 18:20 Total Bilirubin 0.8 mg/dL (0.15-1.2) 07/27/23 18:20 AST 33 U/L (0-40) 07/27/23 18:20 ALT 13 U/L (0-41) 07/27/23 18:20 Alkaline Phosphatase 78 U/L (40-130) 07/27/23 18:20 Total Protein 6.9 g/dL (6.6-8.7) 07/27/23 18:20 Albumin 3.5 g/dL (3.5-5.2) 07/27/23 18:20 Globulin 3.4 g/dL (1.3-4.6) 07/27/23 18:20 Urine Color Dark yellow (Yellow) 07/27/23 19:28 Urine Appearance Clear (CLEAR) 07/27/23 19:28 Urine pH 5 (5-7) 07/27/23 19:28 Ur Specific [place] 1.020 (1.005-1.030) 07/27/23 19:28 Urine Protein Neg (Negative) 07/27/23 19:28 Urine Glucose (UA) Norm (Normal) 07/27/23 19:28 Urine Ketones Negative (Negative) 07/27/23 19:28 Urine Blood Neg (Negative) 07/27/23 19:28 Urine Nitrate Negative (Negative) 07/27/23 19:28 Urine Bilirubin Neg (Negative) 07/27/23 19:28 Urine Urobilinogen Norm mg/dL (Negative) 07/27/23 19:28 Ur Leukocyte Esterase Negative (Negative) 07/27/23 19:28 Influenza Type A Ag negative (Negative) 07/27/23 18:35 Influenza Type B Ag negative (Negative) 07/27/23 18:35 SARS-CoV-2 Ag (Rapid) Negative (Negative) 07/27/23 18:35 All radiology interpretation(s) finalized by discharge Discharge Plan Discharge Patient Disposition: Home Clinical Impression: Pneumonia Qualifiers: Pneumonia type: due to unspecified organism Laterality: left Lung location: l ower lobe of lung Qualified Code(s): J18.9 - Pneumonia, unspecified organism Condition: Stable Prescriptions: New levofloxacin 500 mg tablet 500 mg PO DAILY 7 Days Qty: 7 0RF No Action losartan 100 mg tablet 100 mg PO DAILY gemfibrozil 600 mg tablet 600 mg PO DAILY clonidine HCl 0.1 mg tablet 0.1 mg PO DAILY PRN (Reason: Hypertension) metoprolol tartrate 100 mg tablet 100 mg PO BID oxcarbazepine 300 mg tablet 300 mg PO BID aspirin 81 mg Tablet,Chewable 81 mg PO QAM Centrum Silver Men 300-600-300 mcg Tablet 1 tab PO DAILY ipratropium-albuterol 0.5 mg-3 mg(2.5 mg base)/3 mL solution for nebulization 3 ml inhalation Q4H PRN (Reason: shortness of breath or wheezing) Qty: 90 0RF budesonide-formoterol [Symbicort] 80-4.5 mcg/actuation HFA aerosol inhaler 2 puff inhalation BID Qty: 10.2 0RF latanoprost 0.005 % drops 1 drp ophthalmic (eye) BEDTIME acetaminophen 500 mg Tablet 1,000 mg PO Q6H PRN (Reason: Pain) albuterol sulfate 90 mcg/actuation HFA aerosol inhaler 2 puff INHALATION QID PRN (Reason: Shortness Of Breath) tamsulosin 0.4 mg capsule 0.4 mg PO DAILY Qty: 30 0RF hydralazine 10 mg tablet 10 mg PO DAILY amlodipine 5 mg tablet 5 mg PO DAILY mupirocin 2 % ointment 1 applic TOPICAL TID potassium chloride 20 mEq tablet,ER particles/crystals 20 meq PO DAILY furosemide 20 mg tablet 20 mg PO DAILY Rx Instructions: may take extra tab at noon if needed Discharge Orders: Discharge ED (Routine); Ordered 07/27/23 Ordered By: Richmond Howard Referrals: Marlin Jesus NP [Primary Care Provider] - Patient Instructions: Opioid Safety, Pain Management Coding Level of Care Code ED Director Clinical Pharmacology for Chg Fwd Documented by User: Samson Humphries, DO 07/27/23 20:13 HPI - SOB/Dyspnea 2 General: Chief Complaint: Shortness of Breath/Dyspnea Stated Complaint: SOB; FEVER Time Seen by Provider: 07/27/23 17:59 PFSH ED 2 PFSH: Medical History (Updated 07/27/23 @ 19:46 by ELVIA Wahl) Septic shock UTI (urinary tract infection) COPD exacerbation Acute exacerbation of chronic obstructive airways disease Pulmonary hypertension Diastolic congestive heart failure History of CVA (cerebrovascular accident) Hyperlipidemia Anxiety History of seizure disorder Hypertension History of seizures COPD (chronic obstructive pulmonary disease) Prostate CA Status post radiation Surgical History History of excision of lesion L neck History of cataract surgery History of tonsillectomy Family History Mother , 98, healthy No problems noted. Father CAD (coronary artery disease) Social History Smoking and tobacco/nicotine status: former use of tobacco/nicotine Quit status (tobacco/nicotine): has quit using Year quit tobacco: 20 years ago Second hand smoke exposure: No Alcohol intake: never Substance/Drug Use: never Lives independently: Yes Household members: none Course 2 Vital Signs: Vital signs: Vital Signs Temperature 98.6 F 07/27/23 17:59 Pulse Rate 77 07/27/23 19:58 Respiratory Rate 18 07/27/23 19:58 Blood Pressure 136/82 07/27/23 19:54 Pulse Oximetry 95 07/27/23 19:58 Oxygen Delivery Me thod Nasal Cannula 07/27/23 19:58 Oxygen Flow Rate 3 07/27/23 19:58 MDM - SOB/Dyspnea Medical Decision Making 87-year-old male patient was sent over from detention for concerns of elevated temperature. They reported to fevers today in the low 100s. On exam respirations are even with some decreased breath sounds and rhonchus noise. Patient does have some productive yellowish-green sputum. Vital signs are normal. Differential diagnosis includes not limited to pneumonia, upper respiratory infection, urinary tract infection, dehydration. CBC showed a white count of 10,000, CMP was unremarkable except for some mild decrease in potassium at 3.1. Urinalysis was normal. Chest x-ray noted a consolidated pneumonia in the left lower lung. Patient be started on Levaquin 500 mg daily for the next 7 days. Patient will continue with his routine breathing treatments and medications for his COPD. Courage fluids. Follow-up with primary care. Return to ER for worsening symptoms. Reviewed patient and exam with Dr. Humphries who agreed with plan. This patient was originally seen by ELVIA Gilliam.? I agree with his history, evaluation, and treatment. Lab Data 07/27/23 18:20 07/27/23 18:20 Labs/Radiology: Radiology Impressions Chest X-Ray 07/27/23 18:10 IMPRESSION: Left lower lobe opacity likely representing effusion versus atelectatic lung changes. Improvement of the previously described right lower lobe consolidation. Laboratory Results WBC 10.43 10^3/uL (3.29-11.43) 07/27/23 18:20 RBC 3.67 10^6/uL (3.85-5.65) L 07/27/23 18:20 Hgb 10.70 g/dL (11.27-16.99) L 07/27/23 18:20 Hct 32.9 % (37-53) L 07/27/23 18:20 MCV 89.6 fl (82-101) 07/27/23 18:20 MCH 29.2 pg (27-33) 07/27/23 18:20 MCHC 32.5 g/dL (30-55) 07/27/23 18:20 RDW 14.7 % (12.1-15.1) 07/27/23 18:20 Plt Count 165 10^3/cmm (157-399) 07/27/23 18:20 MPV 9.1 fL (7.4-10.4) 07/27/23 18:20 Neut % (Auto) 83.8 % 07/27/23 18:20 Lymph % (Auto) 9.9 % 07/27/23 18:20 Blair % (Auto) 5.4 % 07/27/23 18:20 Eos % (Auto) 0.1 % 07/27/23 18:20 Baso % (Auto) 0.4 % 07/27/23 18:20 Neut # (Auto) 8.75 10^3/uL (1.8-7.7) H 07/27/23 18:20 Lymph # (Auto) 1.0 10^3/uL (0.8-4.8) 07/27/23 18:20 Blair # (Auto) 0.6 10^3/uL (0.2-0.9) 07/27/23 18:20 Eos # (Auto) 0.0 10^3/uL (0.0-0.8) 07/27/23 18:20 Baso # (Auto) 0.0 10^3/uL (0.0-0.1) 07/27/23 18:20 Nucleated RBC % (auto) 0 % 07/27/23 18:20 Nucleated RBCs # 0.0 /100WBC 07/27/23 18:20 Sodium 138 mmol/L (136-145) 07/27/23 18:20 Potassium 3.1 mmol/L (3.5-5.1) L 07/27/23 18:20 Chloride 99 mmol/L (98-107) 07/27/23 18:20 Carbon Dioxide 28 mmol/L (22-29) 07/27/23 18:20 Anion Gap 14.1 (5-19) 07/27/23 18:20 BUN 30 mg/dL (8-23) H 07/27/23 18:20 Creatinine 0.9 mg/dL (0.7-1.2) 07/27/23 18:20 GFR Calculation Not Reportable 07/27/23 18:20 Glucose 112 mg/dL (65-115) 07/27/23 18:20 Calculated Osmolality 293 mOsm/kg (285-295) 07/27/23 18:20 Lactic Acid 1.7 mmol/L (0.5-2.2) 07/27/23 18:20 Calcium 8.9 mg/dL (8.5-10.5) 07/27/23 18:20 Total Bilirubin 0.8 mg/dL (0.15-1.2) 07/27/23 18:20 AST 33 U/L (0-40) 07/27/23 18:20 ALT 13 U/L (0-41) 07/27/23 18:20 Alkaline Phosphatase 78 U/L (40-130) 07/27/23 18:20 Total Protein 6.9 g/dL (6.6-8.7) 07/27/23 18:20 Albumin 3.5 g/dL (3.5-5.2) 07/27/23 18:20 Globulin 3.4 g/dL (1.3-4.6) 07/27/23 18:20 Urine Color Dark yellow (Yellow) 07/27/23 19:28 Urine Appearance Clear (CLEAR) 07/27/23 19:28 Urine pH 5 (5-7) 07/27/23 19:28 Ur Specific [place] 1.020 (1.005-1.030) 07/27/23 19:28 Urine Protein Neg (Negative) 07/27/23 19:28 Urine Glucose (UA) Norm (Normal) 07/27/23 19:28 Urine Ketones Negative (Negative) 07/27/23 19:28 Urine Blood Neg (Negative) 07/27/23 19:28 Urine Nitrate Negative (Negative) 07/27/23 19:28 Urine Bilirubin Neg (Negative) 07/27/23 19:28 Urine Urobilinogen Norm mg/dL (Negative) 07/27/23 19:28 Ur Leukocyte Esterase Negative (Negative) 07/27/23 19:28 Influenza Type A Ag negative (Negative) 07/27/23 18:35 Influenza Type B Ag negative (Negative) 07/27/23 18:35 SARS-CoV-2 Ag (Rapid) Negative (Negative) 07/27/23 18:35 Discharge Plan Discharge Patient Disposition: Home Clinical Impression: Pneumonia Qualifiers: Pneumonia type: due to unspecified organism Laterality: left Lung location: l ower lobe of lung Qualified Code(s): J18.9 - Pneumonia, unspecified organism Condition: Stable Prescriptions: New levofloxacin 500 mg tablet 500 mg PO DAILY 7 Days Qty: 7 0RF No Action losartan 100 mg tablet 100 mg PO DAILY gemfibrozil 600 mg tablet 600 mg PO DAILY clonidine HCl 0.1 mg tablet 0.1 mg PO DAILY PRN (Reason: Hypertension) metoprolol tartrate 100 mg tablet 100 mg PO BID oxcarbazepine 300 mg tablet 300 mg PO BID aspirin 81 mg Tablet,Chewable 81 mg PO QAM Centrum Silver Men 300-600-300 mcg Tablet 1 tab PO DAILY ipratropium-albuterol 0.5 mg-3 mg(2.5 mg base)/3 mL solution for nebulization 3 ml inhalation Q4H PRN (Reason: shortness of breath or wheezing) Qty: 90 0RF budesonide-formoterol [Symbicort] 80-4.5 mcg/actuation HFA aerosol inhaler 2 puff inhalation BID Qty: 10.2 0RF latanoprost 0.005 % drops 1 drp ophthalmic (eye) BEDTIME acetaminophen 500 mg Tablet 1,000 mg PO Q6H PRN (Reason: Pain) albuterol sulfate 90 mcg/actuation HFA aerosol inhaler 2 puff INHALATION QID PRN (Reason: Shortness Of Breath) tamsulosin 0.4 mg capsule 0.4 mg PO DAILY Qty: 30 0RF hydralazine 10 mg tablet 10 mg PO DAILY amlodipine 5 mg tablet 5 mg PO DAILY mupirocin 2 % ointment 1 applic TOPICAL TID potassium chloride 20 mEq tablet,ER particles/crystals 20 meq PO DAILY furosemide 20 mg tablet 20 mg PO DAILY Rx Instructions: may take extra tab at noon if needed Discharge Orders: Discharge ED (Routine); Ordered 07/27/23 Ordered By: Richmond Howard Referrals: Mariln Jesus NP [Primary Care Provider] - Patient Instructions: Opioid Safety, Pain Management Coding Level of Care Code ED Director Clinical Pharmacology for Aldair Pino
[2023-07-27 18:35] LABS: Basophils % 0.4 %; Eosinophils % 0.1 %; Hematocrit 32.9 % (37-53); Lymphocytes % 9.9 %; Mean Corpuscular HGB Conc 32.5 g/dL (30-55); Mean Corpuscular Hemoglobin 29.2 pg (27-33); Mean Corpuscular Volume 89.6 fl (82-101); Mean Platelet Volume 9.1 fL (7.4-10.4); Monocytes # 0.6 10^3/uL (0.2-0.9); Monocytes % 5.4 %; Neutrophils # 8.75 10^3/uL (1.8-7.7); Neutrophils % 83.8 %; Nucleated Red Blood Cells % 0 %; Platelet Count 165 10^3/cmm (157-399); Red Blood Count 3.67 10^6/uL (3.85-5.65); Red Cell Distribution Width 14.7 % (12.1-15.1); White Blood Count 10.43 10^3/uL (3.29-11.43)
[2023-07-27 18:41] VITALS: O2SAT 92
[2023-07-27 18:53] LABS: Alanine Aminotransferase 13 U/L (0-41); Albumin Level 3.5 g/dL (3.5-5.2); Alkaline Phosphatase 78 U/L (40-130); Anion Gap 14.1 (5-19); Aspartate Amino Transferase 33 U/L (0-40); Blood Urea Nitrogen 30 mg/dL (8-23); Calcium 8.9 mg/dL (8.5-10.5); Carbon Dioxide 28 mmol/L (22-29); Chloride 99 mmol/L (98-107); Globulin 3.4 g/dL (1.3-4.6); Glucose 112 mg/dL (65-115); Osmolality Calculated 293 mOsm/kg (285-295); Potassium 3.1 mmol/L (3.5-5.1); Sodium 138 mmol/L (136-145); Total Bilirubin 0.8 mg/dL (0.15-1.2); Total Protein 6.9 g/dL (6.6-8.7)
[2023-07-27 18:54] LABS: Lactic Sepsis W/Reflex 1.7 mmol/L (0.5-2.2)
[2023-07-27 18:58] LABS: Influenza A by IFA negative (Negative); Influenza B by IFA negative (Negative)
[2023-07-27 19:01] LABS: SARS Covid-2 Antigen Negative (Negative)
[2023-07-27 19:33] LABS: Add Urine Microscopic? NO; Charge for UA Resulting for Rev
[2023-07-27 19:41] LABS: Bilirubin Urine Neg (Negative); Blood Urine Neg (Negative); Glucose Urine UA Norm (Normal); Ketones Urine Negative (Negative); Leukocyte Esterase Urine Negative (Negative); Nitrate Urine Negative (Negative); Protein Urine Neg (Negative); Urine Appearance Clear (CLEAR); Urine Color Dark Yellow (Yellow); Urobilinogen Urine Norm (Negative); pH Urine 5 (5-7)
[2023-07-27] MEDS: levoFLOXacin 500 mg Tablet PO (19:48)
[2023-07-27] MEDS: ipratropium-albuterol 3 mL Neb INHALATION (19:52)
[2023-07-27 19:54] VITALS: BP 136/82; PULSE 77; PULSE 79; RESP 18; RESP 20; O2SAT 93
[2023-07-27 19:58] VITALS: PULSE 77; RESP 18; O2SAT 95
[2023-07-27 20:34] VITALS: BP 145/77; PULSE 85; RESP 20; O2SAT 93
[2023-07-27 21:43] LABS: Adenovirus Not Detected (NOT DETECT); Chlamydia Pneumoniae Not Detected (NOT DETECT); Coronavirus 229E,HKU1,NL63,OC4 Not Detected (NOT DETECT); Human Metapneumovirus Not Detected (NOT DETECT); Human Rhinovirus/Enterovirus Not Detected (NOT DETECT); Influenza A Not Detected (NOT DETECT); Influenza A H1 Not Detected (NOT DETECT); Influenza A H1-2009 Not Detected (NOT DETECT); Influenza A H3 Not Detected (NOT DETECT); Influenza B Not Detected (NOT DETECT); Mycoplasma Pneumoniae Not Detected (NOT DETECT); Parainfluenza Virus Type 1 Not Detected (NOT DETECT); Parainfluenza Virus Type 2 Not Detected (NOT DETECT); Parainfluenza Virus Type 3 Not Detected (NOT DETECT); Parainfluenza Virus Type 4 Not Detected (NOT DETECT); Respiratory Syncytial Virus A Not Detected (NOT DETECT); SARS-COV-2 Not Detected (NOT DETECT)
[2023-07-27 22:03] LABS: Respiratory Syncytial Virus B Detected (NOT DETECT)
--- NOTE | 2023-07-28 05:23 | PC.NURSE ---
[facility] [place]'s positive RSV B result. Pt was placed on Levaquin for pneumonia prior to discharge per physician order. No change in medications at this time.
== END 2023-07-27 20:55 | disposition home or self-care (01) ==
PROVIDERS: Emergency Provider Nurse Practitioner Family; PCP Nurse Practitioner Family
DX: J18.9 Pneumonia, unspecified organism (principal); Z79.82 Long term (current) use of aspirin; Z11.52 Encounter for screening for COVID-19; Z87.891 Personal history of nicotine dependence; J44.9 Chronic obstructive pulmonary disease, unspecified; I11.0 Hypertensive heart disease with heart failure; I50.30 Unspecified diastolic (congestive) heart failure; Z85.46 Personal history of malignant neoplasm of prostate
CPT/HCPCS: 36415; 71045; 80053; 81003; 83605; 85025; 87040; 87426; 87486; 87581; 87633; 87804; 94640; 99284

== ENCOUNTER 2023-11-04 10:23 | Outpatient (CLI) | payer MEDICARE, SELFPAY ==
--- NOTE | 2023-11-04 10:31 | CT_ITS ---
WS: [id number] CT ABDOMEN AND PELVIS NONCONTRAST HISTORY: BLADDER-NECK OBSTRUCTION TECHNIQUE: Imaging performed through the abdomen and pelvis. Coronal and sagittal reformats are submi tted. All CT scans at [facility] use at least one of these dose optimization techniques: auto mated exposure control; mA and/or kV adjustment per patient size (includes targeted exams where dose is matched to clinical indication); or iterative reconstruction. DLP: 224.14 mGy.cm COMPARISON: 07/05/2023 Lower thorax: Partially calcified nodule at the RIGHT lung base. Small hiatal hernia. Liver: Normal size liver. No mass or bile duct dilatation. Gallbladder: Several stones present in the gallbladder. No wall thickening. Pancreas: Normal size and attenuation. Normal pancreatic duct. No pancreatitis or mass. Spleen: Normal size with granulomata. Adrenal glands: Normal. No mass. Right kidney: Normal size kidney. Cortical cyst superior pole 10 mm. No renal obstruction. Left kidney: Normal size kidney. High density cortical mass measures 5 mm. Probably a hemorrhagic cys t. Nonobstructing 3 mm calcification in the lower pole. Aorta: Moderate to severe atherosclerosis abdominal aorta. No aneurysm. Atherosclerosis continues int o the common iliac arteries. No free fluid, intraperitoneal air or significant lymphadenopathy. GI tract: Stomach is not distended. No small bowel obstruction. Tortuous colon. Normal appendix. Mild distal colonic diverticular disease. Abdominal wall: Negative. No hernia. Pelvis: Urinary bladder is well distended. No stones within the bladder. Osseous structures: Osteopenia. CT/CT kidney stone [id number] IMPRESSION: 1. No renal obstruction or hydronephrosis. 2. Nonobstructing 3 mm calcification lower pole LEFT kidney. 3. No urinary bladder calcifications. 4. Sigmoid diverticulosis without acute diverticulitis. 5. Atherosclerotic changes abdominal aorta. 6. Urinary bladder is well distended. Not overly distended.
== END 2023-11-04 10:24 | disposition home or self-care (01) ==
LOC: RAD 10:26
PROVIDERS: PCP Nurse Practitioner; Visit Provider Urology
DX: N32.0 Bladder-neck obstruction (principal); K57.30 Diverticulosis of large intestine without perforation or abscess without bleeding; I70.0 Atherosclerosis of aorta
CPT/HCPCS: 74176

== ENCOUNTER 2024-01-03 20:45 | Emergency (ER) | payer MEDICARE, SELFPAY ==
[2024-01-03 20:57] VITALS: BP 132/74; PULSE 64; RESP 18; TEMP 37.4; O2SAT 96; BMI 20.3
--- NOTE | 2024-01-03 21:22 | XRR_ITS ---
PROCEDURE INFORMATION: Exam: XR Chest Exam date and time: 01/03/2024 9:57 PM Age: 88 years old Clinical indication: Patient HX: Cough; Congestion TECHNIQUE: Imaging protocol: Radiologic exam of the chest. Views: 1 view. COMPARISON: CR XR chest 1V portable [id number] 07/27/2023 6:17 PM FINDINGS: Lungs: No consolidation or pulmonary edema. Two 9 mm and 3 mm stable benign calcified nodules in the left upper lobe and left midlung respectively. Pleural spaces: No pleural effusion. No pneumothorax. Heart/Mediastinum: Cardiomediastinal silhouette is normal in size. Vasculature: Atherosclerotic calcifications in the thoracic aorta. Bones/joints: No acute fractures. XR/XR chest 1V portable [id number] IMPRESSION: No acute findings.
[2024-01-03 21:30] VITALS: BP 101/61; PULSE 56; RESP 20; O2SAT 93
--- NOTE | 2024-01-03 21:30 | ED_ITS ---
Documented by User: Travis Caldera 01/03/24 22:29 HPI - URI/Sore Throat 2 General: Chief Complaint: Upper Respiratory Infection Stated Complaint: COUGH Time Seen by Provider: 01/03/24 21:01 History of Present Illness: 88-year-old male presents emergency depa rtment chief complaint of cough congestion upper respiratory symptoms as well as reduced appetite and oral intake. Patient has a known history of dementia per family patient is at his current baseline no recent falls or injuries noted patient has had no recent fevers or chills as per the staff at the long-term patient is written for anxiety medications which is unclear whether not he had 1 tonight the patient has been drifting off to sleep that being said. Patient presents to the ER with family present for further assessment and management. Patient per the family has had a known history of prior urosepsis and UTI with sepsis which they are concerned that he may be having a recurrence of. Associated symptoms: Deny abdominal pain, chills, chest pain, fever(s), headache(s), nausea or vomiting Review of Systems 2 General: Reports: 10 or more systems reviewed and unremarkable except in HPI and below Const: Reports: body aches and change in appetite; Denies: fever(s), chills, fatigue or malaise Eyes: Denies: change in vision or blurry vision Card: Denies: chest pain or palpitations Resp: Reports: productive cough; Denies: dyspnea GI: Denies: abdominal pain, nausea or vomiting : Denies: flank pain Musc: Denies: extremity pain or extremity swelling Skin/Breast: Denies: rash or pruritus Neuro: Reports: other (Increased confusion); Denies: headache(s) Psych: Denies: anxiety or depression Danny/Lymph: Denies: easy bleeding All/Imm: Denies: urticaria, throat swelling or facial swelling PFSH ED 2 PFSH: Medical History Septic shock UTI (urinary tract infection) COPD exacerbation Acute exacerbation of chronic obstructive airways disease Pulmonary hypertension Diastolic congestive heart failure History of CVA (cerebrovascular accident) Hyperlipidemia Anxiety History of seizure disorder Hypertension History of seizures COPD (chronic obstructive pulmonary disease) Prostate CA Status post radiation Surgical History History of excision of lesion L neck History of cataract surgery History of tonsillectomy Family History Mother , 98, healthy No problems noted. Father CAD (coronary artery disease) Social History Smoking and tobacco/nicotine status: former use of tobacco/nicotine Quit status (tobacco/nicotine): has quit using Year quit tobacco: 20 years ago Second hand smoke exposure: No Alcohol intake: never Substance/Drug Use: never Lives independently: Yes Household members: none Physical Exam 2 Const: COMMON NORMALS: no acute distress and healthy appearing; negative for patient oriented x3 (Patient appears to be somewhat confused which appears to be at baseline no ) HENMT: COMMON NORMALS: normocephalic and atraumatic HEAD & SCALP: n ormocephalic and atraumatic Eye: COMMON NORMALS: Equal, round and reactive pupils present and EOMs intact bilaterally PUPIL: Yes Equal, round and reactive pupils present Neck/C-Spine: COMMON NORMALS: full ROM, supple and no JVD Lymph: LYMPHATIC: no lymphadenopathy noted Chest: COMMONS NORMALS: normal inspection of the chest and normal palpation of entire chest wall Resp: COMMON NORMALS: normal respiratory effort, No retractions and clear to auscultation bilaterally EFFORT & INSPECTION: Yes able to speak in complete sentences and Yes symmetric chest movement AUSCULTATION: clear to auscultation bilaterally Cardio: COMMON NORMALS: no JVD, regular rate and regular rhythm RATE: r egular rate RHYTHM: regular rhythm GI: COMMON NORMALS: Normal to inspection, nondistended, normoactive bowel sounds present, Soft to palpation and non-tender INSPECTION: Yes normal to inspection PALPATION: Yes Soft to palpation : COMMON NORMALS: Yes no CVA tenderness BLADDER/KIDNEY EXAM: Yes no CVA tenderness Back/Pelvis: COMMON NORMALS: no CVA tenderness Extremity: COMMON NORMALS: normal to inspection and full ROM Neuro: COMMON NORMALS: CN's II-XII intact bilaterally, moves all extremities and no focal motor deficits; negative for patient oriented x3 (Patient appears to be somewhat confused which appears to be at baseline no ) Psych: COMMON NORMALS: mental status grossly normal, Normal thought process present, cooperative and normal affect THOUGHT PROCESS: Normal thought process present Skin: COMMON NORMALS: no rashes or lesions noted GENERAL SKIN EXAM: no rashes or lesions noted Course 2 Vital Signs: Vital signs: Vital Signs Temperature 99.4 F 01/03/24 20:57 Pulse Rate 64 01/03/24 20:57 Respiratory Rate 18 01/03/24 20:57 Blood Pressure 132/74 01/03/24 20:57 Pulse Oximetry 96 01/03/24 20:57 Oxygen Delivery Me thod Nasal Cannula 01/03/24 20:57 Oxygen Flow Rate 2 01/03/24 20:57 MDM - URI/Sore Throat Medical Decision Making Due to patient's symptoms and condition IV will be established IV fluids provided for hydration lab work imaging will be obtained. Currently waiting on patient's lab work imaging to result anticipate discharge home this patient was signed out to my colleague Dr. Humphries at [id number] Lab Data 01/03/24 21:41 01/03/24 21:41 Radiology Impressions Chest X-Ray 01/03/24 21:22 IMPRESSION: No acute findings. Head CT 01/03/24 21:32 IMPRESSION: 1. An old or subacute 5.7 cm x 1.7 cm x 1.7 cm ischemic infarct in the right temporal lobe. Brain MRI without IV contrast is recommended to further evaluate. 2. An old 1.4 cm x 0.5 cm x 0.5 cm ischemic infarct in the left cerebellum. 3. No acute intracranial hemorrhage. 4. Generalized brain atrophy and microvascular ischemic changes in bilateral white matter. 5. Atherosclerotic calcifications in the intracranial segments of bilateral internal carotid arteries and bilateral vertebral arteries. Laboratory Results WBC 6.14 10^3/uL (3.29-11.43) 01/03/24 21:41 RBC 4.08 10^6/uL (3.85-5.65) 01/03/24 21:41 Hgb 12.00 g/dL (11.27-16.99) 01/03/24 21:41 Hct 35.5 % (37-53) L 01/03/24 21:41 MCV 87.0 fl (82-101) 01/03/24 21:41 MCH 29.4 pg (27-33) 01/03/24 21:41 MCHC 33.8 g/dL (30-55) 01/03/24 21:41 RDW 13.2 % (12.1-15.1) 01/03/24 21:41 Plt Count 109 10^3/cmm (157-399) L 01/03/24 21:41 MPV 8.7 fL (7.4-10.4) 01/03/24 21:41 Neut % (Auto) 70.4 % 01/03/24 21:41 Lymph % (Auto) 13.7 % 01/03/24 21:41 [place] % (Auto) 12.7 % 01/03/24 21:41 Eos % (Auto) 2.4 % 01/03/24 21:41 Baso % (Auto) 0.3 % 01/03/24 21:41 Neut # (Auto) 4.32 10^3/uL (1.8-7.7) 01/03/24 21:41 Lymph # (Auto) 0.8 10^3/uL (0.8-4.8) 01/03/24 21:41 [place] # (Auto) 0.8 10^3/uL (0.2-0.9) 01/03/24 21:41 Eos # (Auto) 0.2 10^3/uL (0.0-0.8) 01/03/24 21:41 Baso # (Auto) 0.0 10^3/uL (0.0-0.1) 01/03/24 21:41 Nucleated RBC % (auto) 0 % 01/03/24 21:41 Nucleated RBCs # 0.0 /100WBC 01/03/24 21:41 Sodium 131 mmol/L (136-145) L 01/03/24 21:41 Potassium 3.2 mmol/L (3.5-5.1) L 01/03/24 21:41 Chloride 92 mmol/L (98-107) L 01/03/24 21:41 Carbon Dioxide 28 mmol/L (22-29) 01/03/24 21:41 Anion Gap 14.2 (5-19) 01/03/24 21:41 BUN 22 mg/dL (8-23) 01/03/24 21:41 Creatinine 0.7 mg/dL (0.7-1.2) 01/03/24 21:41 GFR Calculation Not Reportable 01/03/24 21:41 Glucose 109 mg/dL (65-115) 01/03/24 21:41 Calculated Osmolality 276 mOsm/kg (285-295) L 01/03/24 21:41 Lactic Acid 0.9 mmol/L (0.5-2.2) 01/03/24 21:41 Calcium 8.8 mg/dL (8.5-10.5) 01/03/24 21:41 Total Bilirubin 0.5 mg/dL (0.15-1.2) 01/03/24 21:41 AST 21 U/L (0-40) 01/03/24 21:41 ALT 16 U/L (0-41) 01/03/24 21:41 Alkaline Phosphatase 91 U/L (40-130) 01/03/24 21:41 Troponin T Baseline 16 ng/L (0-15) H 01/03/24 21:41 Troponin T 120 Minute 15.79 ng/L (0-15) H 01/03/24 23:44 Delta Troponin T -0.21 ABS# (0-10) L 01/03/24 23:44 NT-Pro-B Natriuret Pep 1994 pg/mL (0-450) H 01/03/24 21:41 Total Protein 6.6 g/dL (6.6-8.7) 01/03/24 21:41 Albumin 4.2 g/dL (3.5-5.2) 01/03/24 21:41 Globulin 2.4 g/dL (1.3-4.6) 01/03/24 21:41 Urine Color Yellow (Yellow) 01/04/24 01:11 Urine Appearance Clear (CLEAR) 01/04/24 01:11 Urine pH 6 (5-7) 01/04/24 01:11 Ur Specific [place] 1.015 (1.005-1.030) 01/04/24 01:11 Urine Protein Trace (Negative) 01/04/24 01:11 Urine Glucose (UA) Norm (Normal) 01/04/24 01:11 Urine Ketones Negative (Negative) 01/04/24 01:11 Urine Blood Neg (Negative) 01/04/24 01:11 Urine Nitrate Negative (Negative) 01/04/24 01:11 Urine Bilirubin Neg (Negative) 01/04/24 01:11 Urine Urobilinogen Neg mg/dL (Negative) 01/04/24 01:11 Ur Leukocyte Esterase Negative (Negative) 01/04/24 01:11 Urine RBC 0-4 /hpf (0-2) H 01/04/24 01:11 Urine WBC 0-4 /hpf (0-5) H 01/04/24 01:11 Ur Squamous Epith Cells 0-4 /hpf (0-5) H 01/04/24 01:11 Amorphous Sediment Not Reportable 01/04/24 01:11 Urine Bacteria Trace /hpf (NONE) 01/04/24 01:11 Urine Mucus 2+ /hpf 01/04/24 01:11 Urine Opiates Screen Negative ng/mL (Negative) 01/04/24 01:11 Ur Barbiturates Screen Negative ng/mL (Negative) 01/04/24 01:11 Ur Phencyclidine Scrn Negative ng/mL (Negative) 01/04/24 01:11 Ur Amphetamines Screen Negative ng/mL (Negative) 01/04/24 01:11 U Benzodiazepines Scrn Positive ng/mL (Negative) H 01/04/24 01:11 Urine Cocaine Screen Negative ng/mL (Negative) 01/04/24 01:11 U Marijuana (THC) Screen Negative ng/mL (Negative) 01/04/24 01:11 All radiology interpretation(s) finalized by discharge Discharge Plan Discharge Patient Disposition: Home Clinical Impression: Dehydration, Acute hypokalemia Condition: Stable Prescriptions: No Action losartan 100 mg tablet 100 mg PO DAILY gemfibrozil 600 mg tablet 600 mg PO DAILY clonidine HCl 0.1 mg tablet 0.1 mg PO DAILY PRN (Reason: Hypertension) metoprolol tartrate 100 mg tablet 100 mg PO BID oxcarbazepine 300 mg tablet 300 mg PO BID aspirin 81 mg Tablet,Chewable 81 mg PO QAM Centrum Silver Men 300-600-300 mcg Tablet 1 tab PO DAILY ipratropium-albuterol 0.5 mg-3 mg(2.5 mg base)/3 mL solution for nebulization 3 ml inhalation Q4H PRN (Reason: shortness of breath or wheezing) Qty: 90 0RF budesonide-formoterol [Symbicort] 80-4.5 mcg/actuation HFA aerosol inhaler 2 puff inhalation BID Qty: 10.2 0RF latanoprost 0.005 % drops 1 drp ophthalmic (eye) BEDTIME acetaminophen 500 mg Tablet 1,000 mg PO Q6H PRN (Reason: Pain) albuterol sulfate 90 mcg/actuation HFA aerosol inhaler 2 puff INHALATION QID PRN (Reason: Shortness Of Breath) tamsulosin 0.4 mg capsule 0.4 mg PO DAILY Qty: 30 0RF hydralazine 10 mg tablet 10 mg PO DAILY amlodipine 5 mg tablet 5 mg PO DAILY mupirocin 2 % ointment 1 applic TOPICAL TID potassium chloride 20 mEq tablet,ER particles/crystals 20 meq PO DAILY furosemide 20 mg tablet 20 mg PO DAILY Rx Instructions: may take extra tab at noon if needed Discharge Orders: Discharge ED (Routine); Ordered 01/04/24 Ordered By: Samson Humphries Referrals: Giovanni Vega, COMMUN[facility] AMBASSADOR [Primary Care Provider] - 1-3 days Patient Instructions: Dehydration (ED), Hypokalemia (ED), Opioid Safety, Pain Management Coding Level of Care Code ED Vegetable Packer for Chg Fwd Documented by User: Samson Humphries, 01/04/24 04:14 HPI - URI/Sore Throat 2 General: Chief Complaint: Upper Respiratory Infection Stated Complaint: COUGH Time Seen by Provider: 01/03/24 21:01 [facility] ED 2 PFSH: Medical History Septic shock UTI (urinary tract infection) COPD exacerbation Acute exacerbation of chronic obstructive airways disease Pulmonary hypertension Diastolic congestive heart failure History of CVA (cerebrovascular accident) Hyperlipidemia Anxiety History of seizure disorder Hypertension History of seizures COPD (chronic obstructive pulmonary disease) Prostate CA Status post radiation Surgical History History of excision of lesion L neck History of cataract surgery History of tonsillectomy Family History Mother , 98, healthy No problems noted. Father CAD (coronary artery disease) Social History (Reviewed 07/13/24 @ 21:31 by Travis Samuel Smoking and tobacco/nicotine status: former use of tobacco/nicotine Quit status (tobacco/nicotine): has quit using Year quit tobacco: 20 years ago Second hand smoke exposure: No Alcohol intake: never Substance/Drug Use: never Lives independently: Yes Household members: none Course 2 Vital Signs: Vital signs: Vital Signs Temperature 99.4 F 01/03/24 20:57 Pulse Rate 64 01/03/24 20:57 Respiratory Rate 18 01/03/24 20:57 Blood Pressure 132/74 01/03/24 20:57 Pulse Oximetry 96 01/03/24 20:57 Oxygen Delivery Me thod Nasal Cannula 01/03/24 20:57 Oxygen Flow Rate 2 01/03/24 20:57 MDM - URI/Sore Throat Medical Decision Making Due to patient's symptoms and condition IV will be established IV fluids provided for hydration lab work imaging will be obtained. Currently waiting on patient's lab work imaging to result anticipate discharge home this patient was signed out to my colleague Dr. Humphries at 2220 Patient's checked out to me at shift change. Potassium is 3.2. Hemoglobin is 12. White blood cell count is 6. Potassium is repleted. CT reveals no acute findings. No urinary tract infection. No evidence of sepsis. He will be allowed discharge, return as needed. Lab Data 01/03/24 21:41 01/03/24 21:41 Radiology Impressions Chest X-Ray 01/03/24 21:22 IMPRESSION: No acute findings. Head CT 01/03/24 21:32 IMPRESSION: 1. An old or subacute 5.7 cm x 1.7 cm x 1.7 cm ischemic infarct in the right temporal lobe. Brain MRI without IV contrast is recommended to further evaluate. 2. An old 1.4 cm x 0.5 cm x 0.5 cm ischemic infarct in the left cerebellum. 3. No acute intracranial hemorrhage. 4. Generalized brain atrophy and microvascular ischemic changes in bilateral white matter. 5. Atherosclerotic calcifications in the intracranial segments of bilateral internal carotid arteries and bilateral vertebral arteries. Laboratory Results WBC 6.14 10^3/uL (3.29-11.43) 01/03/24 21:41 RBC 4.08 10^6/uL (3.85-5.65) 01/03/24 21:41 Hgb 12.00 g/dL (11.27-16.99) 01/03/24 21:41 Hct 35.5 % (37-53) L 01/03/24 21:41 MCV 87.0 fl (82-101) 01/03/24 21:41 MCH 29.4 pg (27-33) 01/03/24 21:41 MCHC 33.8 g/dL (30-55) 01/03/24 21:41 RDW 13.2 % (12.1-15.1) 01/03/24 21:41 Plt Count 109 10^3/cmm (157-399) L 01/03/24 21:41 MPV 8.7 fL (7.4-10.4) 01/03/24 21:41 Neut % (Auto) 70.4 % 01/03/24 21:41 Lymph % (Auto) 13.7 % 01/03/24 21:41 [place] % (Auto) 12.7 % 01/03/24 21:41 Eos % (Auto) 2.4 % 01/03/24 21:41 Baso % (Auto) 0.3 % 01/03/24 21:41 Neut # (Auto) 4.32 10^3/uL (1.8-7.7) 01/03/24 21:41 Lymph # (Auto) 0.8 10^3/uL (0.8-4.8) 01/03/24 21:41 [place] # (Auto) 0.8 10^3/uL (0.2-0.9) 01/03/24 21:41 Eos # (Auto) 0.2 10^3/uL (0.0-0.8) 01/03/24 21:41 Baso # (Auto) 0.0 10^3/uL (0.0-0.1) 01/03/24 21:41 Nucleated RBC % (auto) 0 % 01/03/24 21:41 Nucleated RBCs # 0.0 /100WBC 01/03/24 21:41 Sodium 131 mmol/L (136-145) L 01/03/24 21:41 Potassium 3.2 mmol/L (3.5-5.1) L 01/03/24 21:41 Chloride 92 mmol/L (98-107) L 01/03/24 21:41 Carbon Dioxide 28 mmol/L (22-29) 01/03/24 21:41 Anion Gap 14.2 (5-19) 01/03/24 21:41 BUN 22 mg/dL (8-23) 01/03/24 21:41 Creatinine 0.7 mg/dL (0.7-1.2) 01/03/24 21:41 GFR Calculation Not Reportable 01/03/24 21:41 Glucose 109 mg/dL (65-115) 01/03/24 21:41 Calculated Osmolality 276 mOsm/kg (285-295) L 01/03/24 21:41 Lactic Acid 0.9 mmol/L (0.5-2.2) 01/03/24 21:41 Calcium 8.8 mg/dL (8.5-10.5) 01/03/24 21:41 Total Bilirubin 0.5 mg/dL (0.15-1.2) 01/03/24 21:41 AST 21 U/L (0-40) 01/03/24 21:41 ALT 16 U/L (0-41) 01/03/24 21:41 Alkaline Phosphatase 91 U/L (40-130) 01/03/24 21:41 Troponin T Baseline 16 ng/L (0-15) H 01/03/24 21:41 Troponin T 120 Minute 15.79 ng/L (0-15) H 01/03/24 23:44 Delta Troponin T -0.21 ABS# (0-10) L 01/03/24 23:44 NT-Pro-B Natriuret Pep 1994 pg/mL (0-450) H 01/03/24 21:41 Total Protein 6.6 g/dL (6.6-8.7) 01/03/24 21:41 Albumin 4.2 g/dL (3.5-5.2) 01/03/24 21:41 Globulin 2.4 g/dL (1.3-4.6) 01/03/24 21:41 Urine Color Yellow (Yellow) 01/04/24 01:11 Urine Appearance Clear (CLEAR) 01/04/24 01:11 Urine pH 6 (5-7) 01/04/24 01:11 Ur Specific [place] 1.015 (1.005-1.030) 01/04/24 01:11 Urine Protein Trace (Negative) 01/04/24 01:11 Urine Glucose (UA) Norm (Normal) 01/04/24 01:11 Urine Ketones Negative (Negative) 01/04/24 01:11 Urine Blood Neg (Negative) 01/04/24 01:11 Urine Nitrate Negative (Negative) 01/04/24 01:11 Urine Bilirubin Neg (Negative) 01/04/24 01:11 Urine Urobilinogen Neg mg/dL (Negative) 01/04/24 01:11 Ur Leukocyte Esterase Negative (Negative) 01/04/24 01:11 Urine RBC 0-4 /hpf (0-2) H 01/04/24 01:11 Urine WBC 0-4 /hpf (0-5) H 01/04/24 01:11 Ur Squamous Epith Cells 0-4 /hpf (0-5) H 01/04/24 01:11 Amorphous Sediment Not Reportable 01/04/24 01:11 Urine Bacteria Trace /hpf (NONE) 01/04/24 01:11 Urine Mucus 2+ /hpf 01/04/24 01:11 Urine Opiates Screen Negative ng/mL (Negative) 01/04/24 01:11 Ur Barbiturates Screen Negative ng/mL (Negative) 01/04/24 01:11 Ur Phencyclidine Scrn Negative ng/mL (Negative) 01/04/24 01:11 Ur Amphetamines Screen Negative ng/mL (Negative) 01/04/24 01:11 U Benzodiazepines Scrn Positive ng/mL (Negative) H 01/04/24 01:11 Urine Cocaine Screen Negative ng/mL (Negative) 01/04/24 01:11 U Marijuana (THC) Screen Negative ng/mL (Negative) 01/04/24 01:11 Discharge Plan Discharge Patient Disposition: Home Clinical Impression: Dehydration, Acute hypokalemia Condition: Stable Prescriptions: No Action losartan 100 mg tablet 100 mg PO DAILY gemfibrozil 600 mg tablet 600 mg PO DAILY clonidine HCl 0.1 mg tablet 0.1 mg PO DAILY PRN (Reason: Hypertension) metoprolol tartrate 100 mg tablet 100 mg PO BID oxcarbazepine 300 mg tablet 300 mg PO BID aspirin 81 mg Tablet,Chewable 81 mg PO QAM Centrum Silver Men 300-600-300 mcg Tablet 1 tab PO DAILY ipratropium-albuterol 0.5 mg-3 mg(2.5 mg base)/3 mL solution for nebulization 3 ml inhalation Q4H PRN (Reason: shortness of breath or wheezing) Qty: 90 0RF budesonide-formoterol [Symbicort] 80-4.5 mcg/actuation HFA aerosol inhaler 2 puff inhalation BID Qty: 10.2 0RF latanoprost 0.005 % drops 1 drp ophthalmic (eye) BEDTIME acetaminophen 500 mg Tablet 1,000 mg PO Q6H PRN (Reason: Pain) albuterol sulfate 90 mcg/actuation HFA aerosol inhaler 2 puff INHALATION QID PRN (Reason: Shortness Of Breath) tamsulosin 0.4 mg capsule 0.4 mg PO DAILY Qty: 30 0RF hydralazine 10 mg tablet 10 mg PO DAILY amlodipine 5 mg tablet 5 mg PO DAILY mupirocin 2 % ointment 1 applic TOPICAL TID potassium chloride 20 mEq tablet,ER particles/crystals 20 meq PO DAILY furosemide 20 mg tablet 20 mg PO DAILY Rx Instructions: may take extra tab at noon if needed Discharge Orders: Discharge ED (Routine); Ordered 01/04/24 Ordered By: Samson Humphries Referrals: Giovanni Vega FNP [Primary Care Provider] - 1-3 days Patient Instructions: Dehydration (ED), Hypokalemia (ED), Opioid Safety, Pain Management Coding Level of Care Code ED Vegetable Packer for Aldair Pino
--- NOTE | 2024-01-03 21:32 | CTR_ITS ---
PROCEDURE INFORMATION: Exam: CT Head Without Contrast Exam date and time: 01/04/2024 12:29 AM Age: 88 years old Clinical indication: Altered mental status/memory loss; Confusion or disorientation; Patient HX: EMS arrival from halfway for increasing confusion. History of RT sided infarcts. ; Additional info: Increased confusion TECHNIQUE: Imaging protocol: Computed tomography of the head without contrast. Radiation optimization: All CT scans at this facility use at least one of these dose optimization techniques: automated exposure control; mA and/or kV adjustment per patient size (includes targeted exams where dose is matched to clinical indication); or iterative reconstruction. COMPARISON: No relevant prior studies available. RADIATION DOSE METRICS: Total DLP (mGy-cm): 1062.38 FINDINGS: Brain: An old or subacute 5.7 cm x 1.7 cm x 1.7 cm ischemic infarct in the right temporal lobe. No acute intracranial hemorrhage. An old 1.4 cm x 0.5 cm x 0.5 cm ischemic infarct in the left cerebellum. No mass effect or midline shift. No acute extra-axial fluid collection. Generalized brain atrophy and microvascular ischemic changes in bilateral white matter. Cerebral ventricles: No ventriculomegaly. Paranasal sinuses: Partially visualized sinuses are unremarkable. No fluid levels. Mastoid air cells: Visualized mastoid air cells are well aerated. Orbital cavities: Previous right cataract surgery. The left globe is unremarkable. Bones: Unremarkable. No acute fracture. Soft tissues: Unremarkable. Vasculature: Atherosclerotic calcifications in the intracranial segments of bilateral internal carotid arteries and bilateral vertebral arteries. CT/CT head wo con* [id number] IMPRESSION: 1. An old or subacute 5.7 cm x 1.7 cm x 1.7 cm ischemic infarct in the right temporal lobe. Brain MRI without IV contrast is recommended to further evaluate. 2. An old 1.4 cm x 0.5 cm x 0.5 cm ischemic infarct in the left cerebellum. 3. No acute intracranial hemorrhage. 4. Generalized brain atrophy and microvascular ischemic changes in bilateral white matter. 5. Atherosclerotic calcifications in the intracranial segments of bilateral internal carotid arteries and bilateral vertebral arteries.
[2024-01-03 21:49] LABS: Basophils % 0.3 %; Eosinophils # 0.2 10^3/uL (0.0-0.8); Eosinophils % 2.4 %; Hematocrit 35.5 % (37-53); Lymphocytes # 0.8 10^3/uL (0.8-4.8); Lymphocytes % 13.7 %; Mean Corpuscular HGB Conc 33.8 g/dL (30-55); Mean Corpuscular Hemoglobin 29.4 pg (27-33); Mean Platelet Volume 8.7 fL (7.4-10.4); Monocytes # 0.8 10^3/uL (0.2-0.9); Monocytes % 12.7 %; Neutrophils # 4.32 10^3/uL (1.8-7.7); Neutrophils % 70.4 %; Nucleated Red Blood Cells % 0 %; Platelet Count 109 10^3/cmm (157-399); Red Blood Count 4.08 10^6/uL (3.85-5.65); Red Cell Distribution Width 13.2 % (12.1-15.1); White Blood Count 6.14 10^3/uL (3.29-11.43)
[2024-01-03 22:00] VITALS: BP 122/77; PULSE 65; RESP 22; O2SAT 95
[2024-01-03 22:08] LABS: Lactic Sepsis W/Reflex 0.9 mmol/L (0.5-2.2)
[2024-01-03 22:09] LABS: Troponin(5th) Baseline 16 ng/L (0-15)
[2024-01-03 22:18] LABS: Alanine Aminotransferase 16 U/L (0-41); Albumin Level 4.2 g/dL (3.5-5.2); Alkaline Phosphatase 91 U/L (40-130); Anion Gap 14.2 (5-19); Aspartate Amino Transferase 21 U/L (0-40); Blood Urea Nitrogen 22 mg/dL (8-23); Calcium 8.8 mg/dL (8.5-10.5); Carbon Dioxide 28 mmol/L (22-29); Chloride 92 mmol/L (98-107); Creatinine Clr Calc Pharmacy 55.9998; Globulin 2.4 g/dL (1.3-4.6); Glucose 109 mg/dL (65-115); NT Pro B Type Natriuretic Pept 1994 pg/mL (0-450); Osmolality Calculated 276 mOsm/kg (285-295); Potassium 3.2 mmol/L (3.5-5.1); Sodium 131 mmol/L (136-145); Total Bilirubin 0.5 mg/dL (0.15-1.2); Total Protein 6.6 g/dL (6.6-8.7)
[2024-01-03 23:00] VITALS: BP 105/63; PULSE 72; RESP 20; O2SAT 96
--- NOTE | 2024-01-03 23:35 | ECG_ITS ---
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 Measurements Intervals [place] Rate: 64 P: 106 KS: 214 QRS: -52 QRSD: 97 T: 69 QT: 443 QTc: 460 Interpretive Statements Significant baseline artifact SINUS RHYTHM WITH FIRST DEGREE AV BLOCK NONSPECIFIC ST & T-WAVE ABNORMALITY Compared to ECG 07/06/2023 22:44:43 First degree AV block now present Sinus rhythm is now present Electronically Signed On 01-04-2024 16:11:54 CDT by Priya Bojorquez M.D. [id number]
[2024-01-04 00:07] LABS: Troponin 5 2HR 15.79 ng/L (0-15)
[2024-01-04 00:09] LABS: Troponin 5 2HR Delta -0.21 ABS# (0-10)
[2024-01-04] MEDS: sodium chloride 0.9% 1,000 ML 999 ML IV (00:58)
[2024-01-04 01:00] VITALS: BP 152/74; PULSE 58; RESP 20; O2SAT 97
[2024-01-04 01:38] LABS: Add Urine Microscopic? YES; Bacteria Urine TRACE /hpf; Bilirubin Urine Neg (Negative); Blood Urine Neg (Negative); Glucose Urine UA Norm (Normal); Ketones Urine Negative (Negative); Leukocyte Esterase Urine Negative (Negative); Mucus Urine 2+ /hpf; Nitrate Urine Negative (Negative); Protein Urine Trace (Negative); RBC Urine 0-4 /hpf (0-2); Specific Gravity, Urine 1.015 (1.005-1.030); Squamous Epithelial Cell Urine 0-4 /hpf (0-5); Urine Appearance Clear (CLEAR); Urine Color Yellow (Yellow); Urobilinogen Urine Neg (Negative); WBC Urine 0-4 /hpf (0-5); pH Urine 6 (5-7)
[2024-01-04 01:39] LABS: Amphetamines Screen Urine Negative (Negative); Barbiturates Screen Urine Negative (Negative); Benzodiazepines Screen Urine Positive (Negative); Cocaine Screen Urine Negative (Negative); Opiate Screen Urine Negative (Negative); PCP Screen Urine Negative (Negative); THC Screen Urine Negative (Negative)
[2024-01-04 02:00] VITALS: BP 168/87; PULSE 61; RESP 23; O2SAT 100
[2024-01-04 03:00] VITALS: BP 133/71; PULSE 57; RESP 20; O2SAT 94
[2024-01-04] MEDS: potassium chloride oral liq 20 mEq/15 mL UDC 40 MEQ PO (03:22)
== END 2024-01-04 03:28 | disposition home or self-care (01) ==
PROVIDERS: Emergency Medicine; Emergency Provider Emergency Medicine; PCP Nurse Practitioner
DX: E87.6 Hypokalemia (principal); E86.0 Dehydration; I11.0 Hypertensive heart disease with heart failure; I50.30 Unspecified diastolic (congestive) heart failure; J44.9 Chronic obstructive pulmonary disease, unspecified; E78.5 Hyperlipidemia, unspecified; F03.90 Unspecified dementia, unspecified severity, without behavioral disturbance, psychotic disturbance, mood disturbance, and anxiety; Z86.73 Personal history of transient ischemic attack (TIA), and cerebral infarction without residual deficits; Z87.891 Personal history of nicotine dependence
CPT/HCPCS: 36415; 70450; 71045; 80053; 80306; 81001; 83605; 83880; 84484; 85025; 93005; 99285; J7030

== ENCOUNTER 2024-04-04 17:17 | Inpatient (IN) | payer MEDICARE, SELFPAY ==
[2024-04-04] VITALS (29 sets, daily range): BP systolic 130–169; BP diastolic 71–98; PULSE 53–70; RESP 14–24; TEMP 36.5–36.9; O2SAT 83–99; BMI 19.7
--- NOTE | 2024-04-04 17:27 | XRR_ITS ---
PROCEDURE INFORMATION: Exam: XR Left Forearm Exam date and time: 04/04/2024 6:17 PM Age: 88 years old Clinical indication: Injury or trauma; Fall; Additional info: Lt forearm pain/deformity post fall TECHNIQUE: Imaging protocol: Radiologic exam of the left forearm. Views: 2 views. COMPARISON: No relevant prior studies available. FINDINGS: Bones/joints: Comminuted fractures of the distal radius and ulna with moderate dorsal angulation. Soft tissues: Soft tissue swelling around the wrist. XR/XR forearm LT 2V [id number] IMPRESSION: Fractures of the distal radius and ulna with moderate dorsal angulation.
--- NOTE | 2024-04-04 17:27 | XRR_ITS ---
PROCEDURE INFORMATION: Exam: XR Left Hip Exam date and time: 04/04/2024 6:13 PM Age: 88 years old Clinical indication: Injury or trauma; Patient HX: Lt hip pain/deformity post fall TECHNIQUE: Imaging protocol: Radiologic exam of the left hip. Views: 2 or 3 views hip with pelvis when performed. COMPARISON: CT kidney stone [id number] 11/04/2023 10:37 AM FINDINGS: Bones/joints: Intertrochanteric left hip fracture. Soft tissues: Unremarkable. XR/XR hip LT 2-3V wo/w pel* [id number] IMPRESSION: Intertrochanteric left hip fracture.
--- NOTE | 2024-04-04 17:47 | XRR_ITS ---
PROCEDURE INFORMATION: Exam: XR Chest Exam date and time: 04/04/2024 6:17 PM Age: 88 years old Clinical indication: Pre-operative exam; Respiratory screening exam; Patient HX: Pre op high risk procedure; Lt forearm pain/deformity post fall TECHNIQUE: Imaging protocol: Radiologic exam of the chest. Views: 1 view. COMPARISON: CR (CHEST, ) 01/03/2024 9:57 PM FINDINGS: Lungs: Hyperinflated lungs. Scattered calcified granulomas. No consolidation. Pleural spaces: Unremarkable. No pleural effusion. No pneumothorax. Heart/Mediastinum: Unremarkable. No cardiomegaly. Bones/joints: Unremarkable. XR/XR chest 1V portable [id number] IMPRESSION: Sequela of COPD. No acute findings.
--- NOTE | 2024-04-04 18:53 | XRR_ITS ---
PROCEDURE INFORMATION: Exam: XR Left Femur Exam date and time: 04/04/2024 7:54 PM Age: 88 years old Clinical indication: Left; Patient HX: Lt hip FX; Lt lower ext pain; Additional info: Lt hip FX; Lt lower ext pain. Sind TECHNIQUE: Imaging protocol: Radiologic exam of the left femur. Views: 2 views. COMPARISON: CR (PELVIS, ) 04/04/2024 6:13 PM FINDINGS: Bones/joints: Comminuted intertrochanteric left hip fracture. The rest of the femur is intact. Soft tissues: Unremarkable. XR/XR femur LT min 2V* [id number] IMPRESSION: Intertrochanteric left hip fracture.
[2024-04-04] MEDS: ondansetron 2 mg/ML SDV 2 mL 4 MG IVP (18:58)
[2024-04-04] MEDS: HYDROmorphone 1 mg/mL INJ 1 mL 0.5 MG IVP (19:02)
--- NOTE | 2024-04-04 19:23 | W.ED.FALL ---
HPI - Fall General: Chief Complaint: Fall Stated Complaint: left wrist/hip pain s/p fall Time Seen by Provider: 04/04/24 17:21 History of Present Illness: This patient is an 88-year-old white male retirement resident who was brought in by EMS. Patient fell while he was walking to dinner this evening at the retirement. He tripped and fell and sustained injuries to the left wrist and left hip. Did not strike his head. Did not lose consciousness. Patient has a history of COPD, CHF, CVA, hypertension, seizure disorder and prostate cancer. I do not see that he is on any blood thinners other than aspirin. Related Data Home Medications Medication Instructions Recorded Confirmed aspirin 81 mg chewable tablet 81 mg PO QAM 11/29/19 07/06/23 metoprolol tartrate 100 mg tablet 100 mg PO BID 11/29/19 07/06/23 oxcarbazepine 300 mg tablet 300 mg PO BID 11/29/19 07/06/23 [id number] 300 mcg-K 60 1 tab PO DAILY 12/06/19 07/06/23 mcg-lycop 600 mcg-lutein 300 mcg tablet (Centrum Silver Men) acetaminophen 500 mg tablet 1,000 mg PO Q6H PRN Pain 03/18/23 07/06/23 albuterol sulfate 90 mcg/actuation 2 puff inhalation QID PRN 03/18/23 07/06/23 aerosol inhaler Shortness Of Breath latanoprost 0.005 % eye drops 1 drp ophthalmic (eye) BEDTIME 03/18/23 07/06/23 clonidine HCl 0.1 mg tablet 0.1 mg PO DAILY PRN Hypertension 04/22/23 07/06/23 gemfibrozil 600 mg tablet 600 mg PO DAILY 04/22/23 07/06/23 losartan 100 mg tablet 100 mg PO DAILY 04/22/23 07/06/23 amlodipine 5 mg tablet 5 mg PO DAILY 07/05/23 07/06/23 furosemide 20 mg tablet 20 mg PO DAILY 07/05/23 07/06/23 hydralazine 10 mg tablet 10 mg PO DAILY 07/05/23 07/06/23 mupirocin 2 % topical ointment 1 applic topical TID 07/05/23 07/06/23 potassium chloride 20 mEq 20 meq PO DAILY 07/05/23 07/06/23 tablet,extended release(part/cryst) Previous Rx's Medication Instructions Recorded budesonide-formoterol HFA 80 2 puff inhalation BID #10.2 grams 03/17/23 mcg-4.5 mcg/actuation aerosol inhaler (Symbicort) ipratropium 0.5 mg-albuterol 3 mg 3 ml inhalation Q4H PRN shortness 03/17/23 (2.5 mg base)/3 mL nebulization of breath or wheezing #90 mL soln tamsulosin 0.4 mg capsule 0.4 mg PO DAILY #30 caps 03/21/23 Allergies Allergy/AdvReac Type Severity Reaction Status Date / Time amoxicillin Allergy Unknown Verified 04/04/24 17:29 Penicillins Allergy Unknown Verified 04/04/24 17:29 Review of Systems General: Reports: 10 or more systems reviewed and unremarkable except in HPI and below Musc: Reports: other (Left wrist injury and left hip injury) PFS ED PFSH: Medical History Septic shock UTI (urinary tract infection) COPD exacerbation Acute exacerbation of chronic obstructive airways disease Pulmonary hypertension Diastolic congestive heart failure History of CVA (cerebrovascular accident) Hyperlipidemia Anxiety History of seizure disorder Hypertension History of seizures COPD (chronic obstructive pulmonary disease) Prostate CA Status post radiation Surgical History History of excision of lesion L neck History of cataract surgery History of tonsillectomy Family History Mother , 98, healthy No problems noted. Father CAD (coronary artery disease) Social History Smoking and tobacco/nicotine status: former use of tobacco/nicotine Quit status (tobacco/nicotine): has quit using Year quit tobacco: 20 years ago Second hand smoke exposure: No Alcohol intake: never Substance/Drug Use: never Lives independently: Yes Household members: none Physical Exam Const: COMMON NORMALS: no acute distress, patient oriented x3 and no limitations GENERAL APPEARANCE: cooperative and comfortable HENMT: COMMON NORMALS: normocephalic, atraumatic, Normal nasal mucous membranes and turbinates present, moist oral mucous membranes and oropharynx normal HEAD & SCALP: normal to inspection, normocephalic and atraumatic FACE & SINUS: normal facial exam NOSE: Normal nasal mucous membranes and turbinates present Eye: COMMON NORMALS: Equal, round and reactive pupils present, EOMs intact bilaterally and conjunctivae normal GENERAL EYE: appearance normal, both eyes and all related structures CONJUNCTIVA: Yes conjunctivae normal PUPIL: Yes Equal, round and reactive pupils present Neck/C-Spine: COMMON NORMALS: supple and no JVD Chest: COMMONS NORMALS: normal inspection of the chest Resp: COMMON NORMALS: normal respiratory effort and clear to auscultation bilaterally AUSCULTATION: clear to auscultation bilaterally Cardio: COMMON NORMALS: no JVD, regular rate, regular rhythm, No gallops present (Cardio), No murmurs present (Cardio) and No rub (Cardio) RATE: regular rate RHYTHM: regular rhythm GI: COMMON NORMALS: Normal to inspection, nondistended, normoactive bowel sounds present, Soft to palpation and non-tender AUSCULTATION: Yes normoactive bowel sounds PALPATION: Yes Soft to palpation : COMMON NORMALS: Yes no CVA tenderness BLADDER/KIDNEY EXAM: Yes no CVA tenderness Back/Pelvis: COMMON NORMALS: no CVA tenderness and thoracic and lumbar spine normal to inspection Extremity: LEFT UPPER EXTREMITY: Yes wrist (Gross deformity of the left wrist. No open wounds.) LEFT LOWER EXTREMITY: Yes lower leg (Shortening of the left leg. Did not attempt range of motion. Normal neuro) Neuro: COMMON NORMALS: patient oriented x3 and CN's II-XII intact bilaterally Psych: COMMON NORMALS: mental status grossly normal, Normal thought process present and cooperative THOUGHT PROCESS: Normal thought process present Skin: COMMON NORMALS: no rashes or lesions noted, turgor normal and no jaundice GENERAL SKIN EXAM: no rashes or lesions noted and turgor normal Course Vital Signs: Vital signs: Vital Signs Temperature 98.5 F 04/04/24 17:20 Pulse Rate 59 L 04/04/24 19:00 Respiratory Rate 24 H 04/04/24 19:00 Blood Pressure 169/95 04/04/24 19:00 Pulse Oximetry 90 04/04/24 19:00 Oxygen Delivery Me thod Nasal Cannula 04/04/24 19:00 Oxygen Flow Rate 2 04/04/24 19:00 MDM - Fall Medical Decision Making X-rays of the left forearm reveal a displaced left distal radius fracture as well as a distal ulnar fracture. X-rays of the left hip and pelvis reveal a left intertrochanteric fracture. Patient was given Dilaudid for his pain. I discussed the case with Dr. Manrique, orthopedic surgeon at 6:50 PM. He does plan on operating on this patient likely tomorrow late afternoon or early evening. He asked that I obtain a full-length femur x-ray which I did order. He also asked if we could admit the patient to the hospitalist service. I then discussed the case with Dr. Mccoy, hospitalist and he did accept the patient. Patient will be transferred to the medical surgical floor as soon as a bed is available. Patient is stable. All radiology interpretation(s) finalized by discharge Discharge Plan Discharge Condition: Stable Prescriptions: No Action losartan 100 mg tablet 100 mg PO DAILY gemfibrozil 600 mg tablet 600 mg PO DAILY clonidine HCl 0.1 mg tablet 0.1 mg PO DAILY PRN (Reason: Hypertension) metoprolol tartrate 100 mg tablet 100 mg PO BID oxcarbazepine 300 mg tablet 300 mg PO BID aspirin 81 mg Tablet,Chewable 81 mg PO QAM Centrum Silver Men 300-600-300 mcg Tablet 1 tab PO DAILY ipratropium-albuterol 0.5 mg-3 mg(2.5 mg base)/3 mL solution for nebulization 3 ml inhalation Q4H PRN (Reason: shortness of breath or wheezing) Qty: 90 0RF budesonide-formoterol [Symbicort] 80-4.5 mcg/actuation HFA aerosol inhaler 2 puff inhalation BID Qty: 10.2 0RF latanoprost 0.005 % drops 1 drp ophthalmic (eye) BEDTIME acetaminophen 500 mg Tablet 1,000 mg PO Q6H PRN (Reason: Pain) albuterol sulfate 90 mcg/actuation HFA aerosol inhaler 2 puff INHALATION QID PRN (Reason: Shortness Of Breath) tamsulosin 0.4 mg capsule 0.4 mg PO DAILY Qty: 30 0RF hydralazine 10 mg tablet 10 mg PO DAILY amlodipine 5 mg tablet 5 mg PO DAILY mupirocin 2 % ointment 1 applic TOPICAL TID potassium chloride 20 mEq tablet,ER particles/crystals 20 meq PO DAILY furosemide 20 mg tablet 20 mg PO DAILY Rx Instructions: may take extra tab at noon if needed Referrals: Giovanni Vega FNP [Primary Care Provider] - Coding Level of Care Code ED Packing And Final [employer] Supervisor for Aldair Pino
--- NOTE | 2024-04-04 19:47 | PM.HP ---
Providers/Chief Complaint Primary Care Provider: ELVIA Mitchell Chief Complaint: left wrist/hip pain s/p fall History of Present Illness Very pleasant hard of hearing 88-year-old gentleman living in assisted living has been losing his balance and had a previous fall, fell again today with resultant pain and deformity of the left wrist and left hip. He is found to have left wrist fracture as well as intertrochanteric left hip fracture. He wants to proceed with repair and orthopedics is consulted in ER. Mr. Duran states that he could feel himself falling, being alert and denies losing consciousness. He lost balance, states that he felt dizzy but denied vertigo. In ER he is noted bradycardic, heart rate 57 no other workup is available. Review of Systems Const: Denies: fever(s), chills, body aches or malaise ENMT: Denies: throat pain Card: Denies: chest pain, edema, pre-syncope or dyspnea on exertion Resp: Denies: dyspnea, productive cough, change in phlegm color or hemoptysis GI: Denies: abdominal pain, nausea, vomiting, diarrhea, constipation, hematochezia or melena : Denies: flank pain, difficulty urinating, urinary frequency or hematuria Musc: Denies: back pain, joint swelling or joint redness Skin/Breast: Denies: rash or new lesions Neuro: Reports: frequent falls; Denies: headache(s) or confusion Endo: Denies: polyuria or polydipsia Medications/Allergies Home Medications Medication Instructions Recorded Confirmed Last Taken Type aspirin 81 mg chewable tablet 81 mg PO QAM 11/29/19 07/06/23 07/04/23 History metoprolol tartrate 100 mg tablet 100 mg PO BID 11/29/19 07/06/23 07/04/23 History oxcarbazepine 300 mg tablet 300 mg PO BID 11/29/19 07/06/23 07/04/23 History [id number] 300 mcg-K 60 1 tab PO DAILY 12/06/19 07/06/23 07/04/23 History mcg-lycop 600 mcg-lutein 300 mcg tablet (Centrum Silver Men) budesonide-formoterol HFA 80 2 puff inhalation BID #10.2 grams 03/17/23 07/06/23 07/04/23 Rx mcg-4.5 mcg/actuation aerosol inhaler (Symbicort) ipratropium 0.5 mg-albuterol 3 mg 3 ml inhalation Q4H PRN shortness 03/17/23 07/06/23 Unknown Rx (2.5 mg base)/3 mL nebulization of breath or wheezing #90 mL soln acetaminophen 500 mg tablet 1,000 mg PO Q6H PRN Pain 03/18/23 07/06/23 Unknown History albuterol sulfate 90 mcg/actuation 2 puff inhalation QID PRN 03/18/23 07/06/23 Unknown History aerosol inhaler Shortness Of Breath latanoprost 0.005 % eye drops 1 drp ophthalmic (eye) BEDTIME 03/18/23 07/06/23 07/04/23 History tamsulosin 0.4 mg capsule 0.4 mg PO DAILY #30 caps 03/21/23 07/06/23 07/04/23 Rx clonidine HCl 0.1 mg tablet 0.1 mg PO DAILY PRN Hypertension 04/22/23 07/06/23 Unknown History gemfibrozil 600 mg tablet 600 mg PO DAILY 04/22/23 07/06/23 07/04/23 History losartan 100 mg tablet 100 mg PO DAILY 04/22/23 07/06/23 07/04/23 History amlodipine 5 mg tablet 5 mg PO DAILY 07/05/23 07/06/23 07/04/23 History furosemide 20 mg tablet 20 mg PO DAILY 07/05/23 07/06/23 07/04/23 History hydralazine 10 mg tablet 10 mg PO DAILY 07/05/23 07/06/23 07/04/23 History mupirocin 2 % topical ointment 1 applic topical TID 07/05/23 07/06/23 07/04/23 History potassium chloride 20 mEq 20 meq PO DAILY 07/05/23 07/06/23 07/04/23 History tablet,extended release(part/cryst) Allergies Allergy/AdvReac Type Severity Reaction Status Date / Time amoxicillin Allergy Unknown Verified 04/04/24 17:29 Penicillins Allergy Unknown Verified 04/04/24 17:29 PFSH Acute PFSH: Medical History Septic shock UTI (urinary tract infection) COPD exacerbation Acute exacerbation of chronic obstructive airways disease Pulmonary hypertension Diastolic congestive heart failure History of CVA (cerebrovascular accident) Hyperlipidemia Anxiety History of seizure disorder Hypertension History of seizures COPD (chronic obstructive pulmonary disease) Prostate CA Status post radiation Surgical History History of excision of lesion L neck History of cataract surgery History of tonsillectomy Family History Mother , 98, healthy No problems noted. Father CAD (coronary artery disease) Social History Smoking and tobacco/nicotine status: former use of tobacco/nicotine Quit status (tobacco/nicotine): has quit using Year quit tobacco: 20 years ago Second hand smoke exposure: No Alcohol intake: never Substance/Drug Use: never Lives independently: Yes Household members: none Vitals/I&O/Wt Last Vital Signs Temp 98.5 F 04/04/24 17:20 Pulse 59 L 04/04/24 19:00 Resp 24 H 04/04/24 19:00 BP 169/95 04/04/24 19:00 Pulse Ox 90 04/04/24 19:00 O2 Del Method Nasal Cannula 04/04/24 19:00 O2 Flow Rate 2 04/04/24 19:00 Weight last 48 hrs Weight 57.153 kg Physical Exam Narrative: Hard of hearing, hears when spoken close to his ear. Const: COMMON NORMALS: patient oriented x3 and alert GENERAL APPEARANCE: cooperative ORIENTATION/CONSCIOUSNESS: Yes awake HENMT: COMMON NORMALS: oropharynx normal Neck/C-Spine: COMMON NORMALS: no JVD Resp: COMMON NORMALS: normal respiratory effort and clear to auscultation bilaterally AUSCULTATION: clear to auscultation bilaterally Cardio: COMMON NORMALS: no JVD, regular rhythm, S1 normal heart sound present, S2 normal heart sound present and No murmurs present (Cardio) RHYTHM: regular rhythm HEART SOUNDS: S1 normal heart sound present and S2 normal heart sound present GI: COMMON NORMALS: Normal to inspection, nondistended, normoactive bowel sounds present, Soft to palpation and non-tender PALPATION: Yes Soft to palpation Extremity: COMMON NORMALS: no joint enlargement and no pedal edema NARRATIVE EXTREMITY EXAM: Left wrist mild deformity, bruising. OTHER: Painful left hip. Neuro: COMMON NORMALS: patient oriented x3 and moves all extremities SENSORIUM/ORIENTATION: Yes alert Skin: COMMON NORMALS: no rashes or lesions noted GENERAL SKIN EXAM: no rashes or lesions noted A&P Assessment and plan (1) Closed left hip fracture: Presented after a fall at assisted living, reports has had some recurrent falls recently, feeling dizzy, was alert through the fall, states usually tries to grab onto something but this time went down with resultant left wrist and left hip fracture. Reviewed vitals, intracranial left hip fracture on hip x-ray on my interpretation, pending official read, reviewed ER note, discussed with ER provider. He is noted to be bradycardic, heart rate 59, no other workup available so far. Will obtain CBC, chemistry, EKG, UA. Is noted had been on metoprolol in the past, confirm home medications. Orthopedics has been consulted in ER, pending assessment. He would like to proceed with repair. Discussed with him elevation of risk, to anesthesia with his age, underlying comorbidities including CHF, pulmonary hypertension, COPD, and other. There does not appear to be a compelling reason at the moment to delay proceeding with surgery given alternative complications and on consideration he agrees. 1 dose heparin for VT prophylaxis in anticipation of procedure tomorrow. Monitor for risk of bleeding. SCDs. IV morphine for pain. Will need PT, OT case management consultation subsequently with regards to disposition. Anticipate likely will need rehabilitation given multiple fractures. (2) Left wrist fracture: Distal radius and ulnar fracture on x-ray, pending official read. Being splinted in ER, pending orthopedic assessment. (3) Frequent falls: Recently with recurrent falls, reports he remains alert through the falls, does not lose consciousness, feels dizzy and like he is losing his balance, but denies vertigo. Additional workup as below. Will need PT assessment, likely rehabilitation with multiple falls, multiple fractures. (4) Dizziness: Additional workup as above. He has noted to be bradycardic. Will additionally assess blood counts, chemistry, EKG, UA as above. Once able to will check orthostatics. Monitor on telemetry to see how low bradycardia may be getting, consider monitor at discharge. Plan COPD: Currently not in exacerbation. DuoNeb scheduled and as needed. Budesonide. Pulmonary hypertension: Monitor oxygenation HFpEF: Currently not in exacerbation. Monitor volume status. Avoid fluid overload. HTN: Monitor blood pressures HLD BPH: Continue Flomax Prostate cancer History of seizures Anxiety Hard of hearing Other medical problems Requesting to confirm home medications, please review and resume as appropriate once available. Attestations Medical Necessity Statement*: Admission of over 2 midnights anticipated for assessment management of multiple fractures in an elderly gentleman with multiple comorbidities including congestive heart failure, pulmonary hypertension, COPD, other medical problems. Diagnoses Closed left hip fracture S72.002A Left wrist fracture S62.102A Frequent falls R29.6 Dizziness R42
--- NOTE | 2024-04-04 19:53 | ECG_ITS ---
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 Measurements Intervals [place] Rate: 55 P: 68 SD: 215 QRS: -46 QRSD: 98 T: 84 QT: 483 QTc: 465 Interpretive Statements SINUS BRADYCARDIA WITH FIRST DEGREE AV BLOCK LEFT ANTERIOR FASCICULAR BLOCK [QRS AXIS <= -45, QR IN I, RS IN II] NONSPECIFIC T-WAVE ABNORMALITY PROLONGED QT INTERVAL Compared to ECG 01/03/2024 23:35:55 Left anterior fascicular block now present Prolonged QT interval now present Sinus rhythm no longer present T-wave abnormality still present Electronically Signed On 04-05-2024 14:09:10 CDT by Roger Rincon M.D. [email or web address]
[2024-04-04 20:23] LABS: Basophils % 0.3 %; Eosinophils # 0.1 10^3/uL (0.0-0.8); Eosinophils % 1.5 %; Hematocrit 31.9 % (37-53); Mean Corpuscular HGB Conc 33.5 g/dL (30-55); Mean Corpuscular Hemoglobin 30.1 pg (27-33); Mean Corpuscular Volume 89.9 fl (82-101); Mean Platelet Volume 8.8 fL (7.4-10.4); Monocytes # 0.6 10^3/uL (0.2-0.9); Neutrophils # 5.02 10^3/uL (1.8-7.7); Neutrophils % 73.9 %; Nucleated Red Blood Cells % 0 %; Platelet Count 137 10^3/cmm (157-399); Red Blood Count 3.55 10^6/uL (3.85-5.65); Red Cell Distribution Width 12.1 % (12.1-15.1); White Blood Count 6.79 10^3/uL (3.29-11.43)
[2024-04-04 20:44] LABS: Alanine Aminotransferase 16 U/L (0-41); Albumin Level 3.5 g/dL (3.5-5.2); Alkaline Phosphatase 89 U/L (40-130); Anion Gap 11.6 (5-19); Aspartate Amino Transferase 20 U/L (0-40); Blood Urea Nitrogen 24 mg/dL (8-23); Calcium 8.2 mg/dL (8.5-10.5); Carbon Dioxide 28 mmol/L (22-29); Chloride 92 mmol/L (98-107); Creatinine Clr Calc Pharmacy 55.3573; Globulin 2.3 g/dL (1.3-4.6); Glucose 110 mg/dL (65-115); Osmolality Calculated 271 mOsm/kg (285-295); Potassium 3.6 mmol/L (3.5-5.1); Sodium 128 mmol/L (136-145); Total Bilirubin 0.4 mg/dL (0.15-1.2); Total Protein 5.8 g/dL (6.6-8.7)
[2024-04-04] MEDS: heparin 5,000 unit/mL INJ 1 mL 5000 UNIT SUBCUT (22:46)
[2024-04-04] MEDS: morphine 4 mg/mL SDV 1 mL 2 MG IVP (23:31)
[2024-04-05] VITALS (25 sets, daily range): BP systolic 92–142; BP diastolic 54–78; PULSE 58–85; RESP 12–20; TEMP 36.2–36.8; O2SAT 91–99
[2024-04-05 00:53] LABS: Bilirubin Urine Negative (Negative); Blood Urine Negative (Negative); Glucose Urine UA Negative (Normal); Ketones Urine Negative (Negative); Leukocyte Esterase Urine Trace (Negative); Nitrate Urine Negative (Negative); Protein Urine Negative (Negative); Specific Gravity, Urine 1.021 (1.005-1.030); Urine Appearance Clear (CLEAR); Urine Color Dark Yellow (Yellow)
[2024-04-05 00:58] LABS: Add Urine Microscopic? YES; Bacteria Urine None Seen /hpf; RBC Urine 0-2 /hpf (0-2); Squamous Epithelial Cell Urine 0-5 /hpf (0-5); WBC Urine 0-5 /hpf (0-5)
[2024-04-05] MEDS: ipratropium-albuterol 3 mL Neb INHALATION ×3 (02:37→21:37)
--- NOTE | 2024-04-05 06:57 | P.CONIM_ITS ---
Documented by User: PETE Hart 04/05/24 09:53 Providers/Reason For Consult 2 Consulting Physician/Specialty*: Dr. Manrique DO/Orthopedic Surgeon Reason for Consult*: Left Hip intertrochanteric Fracture and Left Wrist Fracture Requesting Physician: Dr. Richy NGUYEN/ Emergency Dept Attending Physician: Watson Mccoy Primary Care Provider: ELVIA Mitchell History of Present Illness History of Present Illness Alessandro Duran is a 88 year old male that has left hip fracture and left wrist fracture after fall. Patient lives in assisted living facility and is ambulatory with a walker. Patient says yesterday he tripped while walking to [place] at a his residence and fell landing on left hip and left wrist. patient says he has been having some balance difficulties over the past several months. Patient is on 2 L of oxygen as needed at home. Patient has a history of COPD, CHF, CVA, hypertension, seizure disorder and prostate cancer. patient says he has been having some balance difficulties over the past several months. Patient is not on any blood thinners. Review of Systems 2 Const: Denies: fever(s) or chills ENMT: Denies: nasal discharge or nasal congestion Card: Denies: chest pain Resp: Denies: dyspnea or productive cough GI: Denies: abdominal pain, nausea or vomiting : Denies: difficulty urinating, dysuria or hematuria Musc: Reports: extremity pain (Left hip and left wrist) and limited range of motion (Left hip and left wrist) Medications/Allergies Home Medications Medication Instructions Recorded Confirmed Last Taken Type aspirin 81 mg chewable tablet 81 mg PO QAM 11/29/19 04/05/24 04/04/24 History metoprolol tartrate 100 mg tablet 100 mg PO BID 11/29/19 04/05/24 04/04/24 History oxcarbazepine 300 mg tablet 300 mg PO BID 11/29/19 04/05/24 04/04/24 History budesonide-formoterol HFA 80 2 puff inhalation BID #10.2 grams 03/17/23 04/05/24 04/04/24 Rx mcg-4.5 mcg/actuation aerosol inhaler (Symbicort) ipratropium 0.5 mg-albuterol 3 mg 3 ml inhalation Q4H PRN shortness 03/17/23 04/05/24 04/04/24 Rx (2.5 mg base)/3 mL nebulization of breath or wheezing #90 mL soln acetaminophen 500 mg tablet 1,000 mg PO Q6H PRN Pain 03/18/23 04/05/24 04/04/24 History albuterol sulfate 90 mcg/actuation 2 puff inhalation QID PRN 03/18/23 04/05/24 04/04/24 History aerosol inhaler Shortness Of Breath latanoprost 0.005 % eye drops 1 drp ophthalmic (eye) BEDTIME 03/18/23 04/05/24 04/04/24 History tamsulosin 0.4 mg capsule 0.4 mg PO DAILY #30 caps 03/21/23 04/05/24 04/04/24 Rx losartan 100 mg tablet 100 mg PO DAILY 04/22/23 04/05/24 04/04/24 History hydralazine 10 mg tablet 10 mg PO DAILY 07/05/23 04/05/24 04/04/24 History famotidine 20 mg tablet 20 mg PO DAILY 04/05/24 04/05/24 04/04/24 History fluticasone propionate 50 1 spray intranasal DAILY 04/05/24 04/05/24 04/04/24 History mcg/actuation nasal spray,suspension hydrochlorothiazide 25 mg tablet 25 mg PO DAILY 04/05/24 04/05/24 04/04/24 History lorazepam 0.5 mg tablet 0.5 mg PO BID PRN Anxiety 04/05/24 04/05/24 04/04/24 History lorazepam 0.5 mg tablet 0.5 mg PO DAILY 04/05/24 04/05/24 04/04/24 History nitrofurantoin macrocrystal 100 mg 100 mg PO DAILY 04/05/24 04/05/24 04/04/24 History capsule potassium chloride 10 mEq 10 meq PO DAILY 04/05/24 04/05/24 04/04/24 History capsule,extended release sertraline 50 mg tablet 50 mg PO DAILY 04/05/24 04/05/24 04/04/24 History Allergies Allergy/AdvReac Type Severity Reaction Status Date / Time amoxicillin Allergy Unknown Verified 04/04/24 17:29 Penicillins Allergy Unknown Verified 04/04/24 17:29 Current Medications Generic Name Dose Route Start Last Admin Trade Name Freq PRN Reason Stop Dose Admin Albuterol/Ipratropium 3 ml 04/05/24 02:00 04/05/24 02:37 Ipratropium-Albuterol 3 Ml Neb INHALATION 3 ml Q6H.RESP JOSS Administration Morphine Sulfate 2 mg 04/04/24 21:02 04/04/24 23:31 Morphine 4 Mg/Ml Sdv 1 Ml IVP 2 mg Q4H PRN Administration SEVERE PAIN PFSH Acute 2 PFSH: Medical History Septic shock UTI (urinary tract infection) COPD exacerbation Acute exacerbation of chronic obstructive airways disease Pulmonary hypertension Diastolic congestive heart failure History of CVA (cerebrovascular accident) Hyperlipidemia Anxiety History of seizure disorder Hypertension History of seizures COPD (chronic obstructive pulmonary disease) Prostate CA Status post radiation Surgical History History of excision of lesion L neck History of cataract surgery History of tonsillectomy Family History Mother , 98, healthy No problems noted. Father CAD (coronary artery disease) Social History Smoking and tobacco/nicotine status: former use of tobacco/nicotine Quit status (tobacco/nicotine): has quit using Year quit tobacco: 20 years ago Second hand smoke exposure: No Alcohol intake: never Substance/Drug Use: never Lives independently: Yes Household members: none Vitals/I&O/Wt Last Vital Signs Temp 97.8 F 04/05/24 04:00 Pulse 61 04/05/24 04:00 Resp 17 04/05/24 04:00 BP 132/71 04/05/24 04:00 Pulse Ox 97 04/05/24 04:00 O2 Del Method Nasal Cannula 04/05/24 04:00 O2 Flow Rate 1 04/05/24 04:00 04/04/24 04/04/24 04/05/24 14:59 22:59 06:59 Output Total 300 / 300 Balance -300 / -300 Weight last 48 hrs Weight 135 lb 5 oz Weight 134 lb 6.4 oz Weight 126 lb Physical Exam 2 Narrative: Left lower extremity-leg is shortened and externally rotated. Positive logroll test. Tenderness to palpation right hip. compartments are soft and compressible. Patient can Wiggle toes. Toes are warm and well-perfused. Pedal pulse 2+. Left Wrist-exam limited due to cast. Fingers were warm well-perfused. Patient was able to wiggle fingers but endorsed pain in wrist. Tenderness to palpation over distal radius. Secondary assessment of other extremities. Right Upper extremity -no visible injuries, abrasions. Full range of motion in shoulders, elbows and wrist. no tenderness to palpation of shoulders or wrist. Right lower extremity-no visible injury or trauma seen. Full range of motion in hip. Negative logroll test. Patient able to perform straight leg raise and can dorsiflex plantarflex foot. Pedal pulse 2+ and patient can wiggle toes. Const: COMMON NORMALS: no acute distress and alert Resp: COMMON NORMALS: normal respiratory effort and No retractions Cardio: COMMON NORMALS: Peripheral pulses 2+ throughout PERIPHERAL PULSES: Peripheral pulses 2+ throughout Neuro: SENSORIUM/ORIENTATION: Yes alert Skin: GENERAL SKIN EXAM: dry skin Urinary Catheter Management: Grewal: Cath Placed During This Visit: yes Urinary Catheter Date of Insertion: 04/05/24 Urinary Catheter Time of Insertion: 00:45 Data 04/06/24 05:55 04/06/24 05:55 Xray Ortho: Radiologist's impression: Patient: Alessandro Duran Unit #: [id number] : 1935 Age/Sex: 88 / M ADM Date: 04/04/24 Loc: [facility] Room/Bed: Formerly named [facility] Attending Dr: Watson Mccoy MD Ordering Provider/Ordering MD: Bhavin Lockhart MD Date of Service: 04/04/24 Procedure(s): XR forearm LT 2V 82824 Accession Number(s): [id number] Report Number: [id number] PROCEDURE INFORMATION: Exam: XR Left Forearm Exam date and time: 04/04/2024 6:17 PM Age: 88 years old Clinical indication: Injury or trauma; Fall; Additional info: Lt forearm pain/deformity post fall TECHNIQUE: Imaging protocol: Radiologic exam of the left forearm. Views: 2 views. COMPARISON: No relevant prior studies available. FINDINGS: Bones/joints: Comminuted fractures of the distal radius and ulna with moderate dorsal angulation. Soft tissues: Soft tissue swelling around the wrist. XR/XR forearm LT 2V 30215 IMPRESSION: Fractures of the distal radius and ulna with moderate dorsal angulation. Dictated By: Avila Hairston DO Patient: Alessandro Duran Unit #: [id number] : 1935 Age/Sex: 88 / M ADM Date: 04/04/24 Loc: [facility] Room/Bed: Formerly named [facility] Attending Dr: Watson Mccoy MD Ordering Provider/Ordering MD: Bhavin Lockhart MD Date of Service: 04/04/24 Procedure(s): XR femur LT min 2V* 91200 Accession Number(s): [id number] Report Number: [id number] PROCEDURE INFORMATION: Exam: XR Left Femur Exam date and time: 04/04/2024 7:54 PM Age: 88 years old Clinical indication: Left; Patient HX: Lt hip FX; Lt lower ext pain; Additional info: Lt hip FX; Lt lower ext pain. Sind TECHNIQUE: Imaging protocol: Radiologic exam of the left femur. Views: 2 views. COMPARISON: CR (PELVIS, ) 04/04/2024 6:13 PM FINDINGS: Bones/joints: Comminuted intertrochanteric left hip fracture. The rest of the femur is intact. Soft tissues: Unremarkable. XR/XR femur LT min 2V* [id number] IMPRESSION: Intertrochanteric left hip fracture. Dictated By: Avila Hairston DO A&P Assessment and plan (1) Closed left hip fracture: (2) Left wrist fracture: Plan Plan: -Imaging and Labs reviewed -Hospitalist on board for medical management. -VTE prophylaxis -Nonweightbearing on Left leg -Keep splint on left wrist -Pain control -N.p.o. after midnight -Surgery today for Left hip Trochanteric femur nail and Left wrist ORIF. Coding Level of Care Code Acute Code for g Fwd Diagnoses Closed left hip fracture S72.002A Left wrist fracture S62.102A Time Spent (min) 45 Documented by User: Jerrell Manrique DO 04/06/24 22:32 Medications/Allergies Home Medications Medication Instructions Recorded Confirmed Last Taken Type aspirin 81 mg chewable tablet 81 mg PO QAM 11/29/19 04/05/24 04/04/24 History metoprolol tartrate 100 mg tablet 100 mg PO BID 11/29/19 04/05/24 04/04/24 History oxcarbazepine 300 mg tablet 300 mg PO BID 11/29/19 04/05/24 04/04/24 History budesonide-formoterol HFA 80 2 puff inhalation BID #10.2 grams 03/17/23 04/05/24 04/04/24 Rx mcg-4.5 mcg/actuation aerosol inhaler (Symbicort) ipratropium 0.5 mg-albuterol 3 mg 3 ml inhalation Q4H PRN shortness 03/17/23 04/05/24 04/04/24 Rx (2.5 mg base)/3 mL nebulization of breath or wheezing #90 mL soln acetaminophen 500 mg tablet 1,000 mg PO Q6H PRN Pain 03/18/23 04/05/24 04/04/24 History albuterol sulfate 90 mcg/actuation 2 puff inhalation QID PRN 03/18/23 04/05/24 04/04/24 History aerosol inhaler Shortness Of Breath latanoprost 0.005 % eye drops 1 drp ophthalmic (eye) BEDTIME 03/18/23 04/05/24 04/04/24 History tamsulosin 0.4 mg capsule 0.4 mg PO DAILY #30 caps 03/21/23 04/05/24 04/04/24 Rx losartan 100 mg tablet 100 mg PO DAILY 04/22/23 04/05/24 04/04/24 History hydralazine 10 mg tablet 10 mg PO DAILY 07/05/23 04/05/24 04/04/24 History famotidine 20 mg tablet 20 mg PO DAILY 04/05/24 04/05/24 04/04/24 History fluticasone propionate 50 1 spray intranasal DAILY 04/05/24 04/05/24 04/04/24 History mcg/actuation nasal spray,suspension hydrochlorothiazide 25 mg tablet 25 mg PO DAILY 04/05/24 04/05/24 04/04/24 History lorazepam 0.5 mg tablet 0.5 mg PO BID PRN Anxiety 04/05/24 04/05/24 04/04/24 History lorazepam 0.5 mg tablet 0.5 mg PO DAILY 04/05/24 04/05/24 04/04/24 History nitrofurantoin macrocrystal 100 mg 100 mg PO DAILY 04/05/24 04/05/24 04/04/24 History capsule potassium chloride 10 mEq 10 meq PO DAILY 04/05/24 04/05/24 04/04/24 History capsule,extended release sertraline 50 mg tablet 50 mg PO DAILY 04/05/24 04/05/24 04/04/24 History Allergies Allergy/AdvReac Type Severity Reaction Status Date / Time amoxicillin Allergy Unknown Verified 04/04/24 17:29 Penicillins Allergy Unknown Verified 04/04/24 17:29 PFSH Acute 2 PFSH: Medical History Septic shock UTI (urinary tract infection) COPD exacerbation Acute exacerbation of chronic obstructive airways disease Pulmonary hypertension Diastolic congestive heart failure History of CVA (cerebrovascular accident) Hyperlipidemia Anxiety History of seizure disorder Hypertension History of seizures COPD (chronic obstructive pulmonary disease) Prostate CA Status post radiation Surgical History History of excision of lesion L neck History of cataract surgery History of tonsillectomy Family History Mother , 98, healthy No problems noted. Father CAD (coronary artery disease) Social History Smoking and tobacco/nicotine status: former use of tobacco/nicotine Quit status (tobacco/nicotine): has quit using Year quit tobacco: 20 years ago Second hand smoke exposure: No Alcohol intake: never Substance/Drug Use: never Lives independently: Yes Household members: none Physical Exam 2 Urinary Catheter Management: Gerwal: Cath Placed During This Visit: yes Data 04/06/24 05:55 04/06/24 05:55 A&P Assessment and plan (1) Closed left hip fracture: (2) Left wrist fracture: Plan Plan: -Imaging and Labs reviewed -Hospitalist on board for medical management. -VTE prophylaxis -Nonweightbearing on Left leg -Keep splint on left wrist -Pain control -N.p.o. after midnight -Surgery today for Left hip Trochanteric femur nail and Left wrist ORIF. Orthopedic attending addendum: Patient was seen and examined with family in the preoperative holding area. Reviewed and agree with PAs assessment and plan. Patient has a displaced left intertrochanteric hip femur fracture as well as a displaced angulated distal radius and distal ulnar fracture. We talked about treatment options in detail with patient and POA at this point in time patient does have some slight confusion and POA is available to review and sign consent as well as with medical decision making. At this point in time patient I feel would benefit from a left hip trochanteric femur nail to help with earlier hip mobilization as well as pain control as far as patient's left upper extremity the distal radius and distal ulna fracture significantly comminuted and displaced feel would benefit from adventism of alignment of the radius there it is comminution of the distal ulna we reviewed likely would recommend not fixing this as I do not feel as though this would add much in the way of benefit for the patient as well as any types of pain or K wires if he tries to mobilize early with a platform walker this would not be successful as it be K wires on the ulnar border where patient will be leaning as a result we talked about this in detail and plan would be to treat this conservatively as far as the distal ulna goes with a sugar-tong splint. We detailed out the procedure to its entirety as far as the risk benefits complication alternatives with surgery. Risk of surgery include but not limited to make a better make it worse tender nerves also tendons infection, hardware failure, wrist and hip arthritis, persistent pain, possible further surgery to have hardware removed. Understand risk of surgery elected proceed with surgical intervention all questions been answered at this time by POA as well as patient will proceed with surgery today on 04/05/2024. All questions answered at this time. Coding Level of Care Code Acute Code for Chg Fwd Diagnoses Closed left hip fracture S72.002A Left wrist fracture S62.102A Time Spent (min) 45
--- NOTE | 2024-04-05 07:49 | P.ANESASSM_ITS ---
Pre-Anesthetic Assessment Height/Weight: Height 5 ft 7 in Weight 135 lb 5 oz Temp Pulse Resp BP Pulse Ox O2 Del Method O2 Flow Rate 97.8 F 61 17 132/71 97 Nasal Cannula 1 04/05/24 04:00 04/05/24 04:00 04/05/24 04:00 04/05/24 04:00 04/05/24 04:00 04/05/24 04:00 04/05/24 04:00 Operation Date: 04/05/24 17:10 Proposed Procedures p Trochanteric Femoral Nail(Left) - Jerrell Manrique, DO s ORIF Wrist ORIF Distal Radius(Left) - Jerrell Manrique DO Last intake: Intake Last Liquid Date 04/04/24 Last Solid Date 04/04/24 Social No alcohol and No tobacco Exam alert, oriented x 3, clear to auscultation bilaterally and regular rate & rhythm Airway Submandibular: within normal limits Cervical ROM: within normal limits Mallampati: Class II Dentition: other (Very poor dentition, patient stating he did not even know he had teeth) Anesthetic Plan ASA status: 4 Anesthesia: General Other: No prior issues with anesthesia Patient fell yesterday, left hip fracture and left wrist fracture Granddaughter at bedside History of COPD, controlled with inhalers Prostate CA s/p radiation Prior CVA Seizures Hypertension on hydrochlorothiazide, losartan, metoprolol. All taken yesterday Quit smoking 20 years ago Labs reviewed, hyponatremia noted sodium 128, hyponatremia noted in December 2023 as well Very poor dentition Plan for GETA Medications/Allergies Home Medications Medication Instructions Recorded Confirmed Last Taken Type aspirin 81 mg chewable tablet 81 mg PO QAM 11/29/19 04/05/24 04/04/24 History metoprolol tartrate 100 mg tablet 100 mg PO BID 11/29/19 04/05/24 04/04/24 History oxcarbazepine 300 mg tablet 300 mg PO BID 11/29/19 04/05/24 04/04/24 History budesonide-formoterol HFA 80 2 puff inhalation BID #10.2 grams 03/17/23 04/05/24 04/04/24 Rx mcg-4.5 mcg/actuation aerosol inhaler (Symbicort) ipratropium 0.5 mg-albuterol 3 mg 3 ml inhalation Q4H PRN shortness 03/17/23 04/05/24 04/04/24 Rx (2.5 mg base)/3 mL nebulization of breath or wheezing #90 mL soln acetaminophen 500 mg tablet 1,000 mg PO Q6H PRN Pain 03/18/23 04/05/24 04/04/24 History albuterol sulfate 90 mcg/actuation 2 puff inhalation QID PRN 03/18/23 04/05/24 04/04/24 History aerosol inhaler Shortness Of Breath latanoprost 0.005 % eye drops 1 drp ophthalmic (eye) BEDTIME 03/18/23 04/05/24 04/04/24 History tamsulosin 0.4 mg capsule 0.4 mg PO DAILY #30 caps 03/21/23 04/05/24 04/04/24 Rx losartan 100 mg tablet 100 mg PO DAILY 04/22/23 04/05/24 04/04/24 History hydralazine 10 mg tablet 10 mg PO DAILY 07/05/23 04/05/24 04/04/24 History famotidine 20 mg tablet 20 mg PO DAILY 04/05/24 04/05/24 04/04/24 History fluticasone propionate 50 1 spray intranasal DAILY 04/05/24 04/05/24 04/04/24 History mcg/actuation nasal spray,suspension hydrochlorothiazide 25 mg tablet 25 mg PO DAILY 04/05/24 04/05/24 04/04/24 History lorazepam 0.5 mg tablet 0.5 mg PO BID PRN Anxiety 04/05/24 04/05/24 04/04/24 History lorazepam 0.5 mg tablet 0.5 mg PO DAILY 04/05/24 04/05/24 04/04/24 History nitrofurantoin macrocrystal 100 mg 100 mg PO DAILY 04/05/24 04/05/24 04/04/24 History capsule potassium chloride 10 mEq 10 meq PO DAILY 04/05/24 04/05/24 04/04/24 History capsule,extended release sertraline 50 mg tablet 50 mg PO DAILY 04/05/24 04/05/24 04/04/24 History Allergies Allergy/AdvReac Type Severity Reaction Status Date / Time amoxicillin Allergy Unknown Verified 04/04/24 17:29 Penicillins Allergy Unknown Verified 04/04/24 17:29 Current Medications Generic Name Dose Route Start Last Admin Trade Name Freq PRN Reason Stop Dose Admin Albuterol/Ipratropium 3 ml 04/05/24 02:00 04/05/24 07:36 Ipratropium-Albuterol 3 Ml Neb INHALATION Not Given Q6H.RESP JOSS Aspirin 81 mg 04/05/24 06:00 04/05/24 06:58 Aspirin 81 Mg Chew Tablet PO Not Given QAM JOSS Budesonide 0.5 mg 04/05/24 08:00 04/05/24 07:36 Budesonide 0.5 Mg/2 Ml Neb INHALATION Not Given BID.RESPIRATORY JOSS Morphine Sulfate 2 mg 04/04/24 21:02 04/04/24 23:31 Morphine 4 Mg/Ml Sdv 1 Ml IVP 2 mg Q4H PRN Administration SEVERE PAIN PFSH Anesthesia Medical History Septic shock UTI (urinary tract infection) COPD exacerbation Acute exacerbation of chronic obstructive airways disease Pulmonary hypertension Diastolic congestive heart failure History of CVA (cerebrovascular accident) Hyperlipidemia Anxiety History of seizure disorder Hypertension History of seizures COPD (chronic obstructive pulmonary disease) Prostate CA Status post radiation Surgical History History of excision of lesion L neck History of cataract surgery History of tonsillectomy Family History Mother , 98, healthy No problems noted. Father CAD (coronary artery disease) Social History Smoking and tobacco/nicotine status: former use of tobacco/nicotine Quit status (tobacco/nicotine): has quit using Year quit tobacco: 20 years ago Second hand smoke exposure: No Alcohol intake: never Substance/Drug Use: never Lives independently: Yes Household members: none Data Anesthesia 04/04/24 20:18 04/04/24 20:18 Short CBC 04/04/24 Range/Units 20:18 WBC 6.79 (3.29-11.43) 10^3/uL Hgb 10.70 L (11.27-16.99) g/dL Hct 31.9 L (37-53) % MCV 89.9 (82-101) fl Plt Count 137 L (157-399) 10^3/cmm Neut % (Auto) 73.9 % Neut # (Auto) 5.02 (1.8-7.7) 10^3/uL BMP 04/04/24 20:18 Sodium 128 L Potassium 3.6 Chloride 92 L Carbon Dioxide 28 BUN 24 H Creatinine 0.8 Glucose 110 Calcium 8.2 L Liver Function 04/04/24 Range/Units 20:18 Total Bilirubin 0.4 (0.15-1.2) mg/dL AST 20 (0-40) U/L ALT 16 (0-41) U/L Alkaline Phosphatase 89 (40-130) U/L Albumin 3.5 (3.5-5.2) g/dL Urine 04/05/24 Range/Units 00:32 Urine Color Dark yellow A (Yellow) Urine Appearance Clear (CLEAR) Urine pH 7.0 (5-7) Ur Specific [place] 1.021 (1.005-1.030) Urine Protein Negative (Negative) Urine Glucose (UA) Negative (Normal) Urine Ketones Negative (Negative) Urine Nitrate Negative (Negative) Urine Bilirubin Negative (Negative) Ur Leukocyte Esterase Trace A (Negative) Urine RBC 0-2 (0-2) /hpf Urine WBC 0-5 (0-5) /hpf Cardiac Studies: 2 Echocardiogram Limited Views 03/18/23
[2024-04-05 08:32] LABS: Basophils % 0.6 %; Eosinophils # 0.1 10^3/uL (0.0-0.8); Eosinophils % 0.9 %; Hematocrit 31.6 % (37-53); Lymphocytes # 0.7 10^3/uL (0.8-4.8); Lymphocytes % 13.4 %; Mean Corpuscular HGB Conc 32.9 g/dL (30-55); Mean Corpuscular Hemoglobin 29.6 pg (27-33); Mean Platelet Volume 8.8 fL (7.4-10.4); Monocytes # 0.6 10^3/uL (0.2-0.9); Monocytes % 10.2 %; Neutrophils # 4.01 10^3/uL (1.8-7.7); Neutrophils % 74.3 %; Nucleated Red Blood Cells % 0 %; Platelet Count 129 10^3/cmm (157-399); Red Blood Count 3.51 10^6/uL (3.85-5.65); Red Cell Distribution Width 12.2 % (12.1-15.1); White Blood Count 5.39 10^3/uL (3.29-11.43)
[2024-04-05] MEDS: sodium chloride 0.9% 1,000 ML 30 ML IV (08:35)
[2024-04-05] MEDS: ketorolac 30 mg/mL INJ IVP (08:42)
[2024-04-05] MEDS: acetaminophen 1,000 MG/100 ML PIGGYBACK 400 MG IV (08:43)
--- NOTE | 2024-04-05 08:44 | SUR.PREOP ---
PATIENT ASSESSED. BILATERAL PEDAL PULSES PRESENT WITH ROM AND SENSATION OF TOES. WARM BLANKETS APPLIED. LABS DRAWN AND SENT. OLMEDO PATENT, WITH YELLOW URINE. A+O X 3. PLAN OF CARE REVIEWED WITH PATIENT AND GRANDDAUGHTER (POA). PLACED ON O2 VIA NASAL CANNULA.GOOD CAP REFILL AND SENSATION OF LEFT FINGRS.
[2024-04-05 08:50] LABS: Anion Gap 10.8 (5-19); Blood Urea Nitrogen 18 mg/dL (8-23); Calcium 8.3 mg/dL (8.5-10.5); Carbon Dioxide 31 mmol/L (22-29); Chloride 95 mmol/L (98-107); Creatinine Clr Calc Pharmacy 56.8533; Glucose 104 mg/dL (65-115); Osmolality Calculated 278 mOsm/kg (285-295); Potassium 3.8 mmol/L (3.5-5.1); Sodium 133 mmol/L (136-145)
--- NOTE | 2024-04-05 09:24 | PC.CHAP ---
Pastoral Care Encounter/Spiritual Assessment Type of Contact [] Declined pre wave assembler visit [] Patient/Family/Request visit [] Outpatient visit [] Follow-up visit [] Physician referral [] Code/Alert [x] Routine visit [] Staff referral [] Actively dying [] Patient sleeping [] Family support [] [x] Out of room [] Palliative care [] [] Receiving care in room [] Pre-surgical visit [] Trauma [] Long length of stay [] ICU visit [] Other: Relational/Emotional Strength [] Patient feels connected with others/family/visitors/staff [] Distress [] Loneliness/isolation [] Abandonment Spirituality of Patient [] Person of [place] [] Attends Confucianist of their [place] [] Believes in Prayer [] Reads Bible or Oriental Orthodox materials [] There are Spiritual issues to be addressed Commissary Officer Interventions [] Prayer [] Active listening [] Non-anxious presence [] Spiritual/emotional support [] Crisis/trauma care [] Spiritual counseling [] Bereavement support [] Provided bereavement packet [] Provided Bible/devotional materials [] Provided toy/stuffed animal, coloring book to patient or family member [] Provided Communion [] Anointing/[place] [] Salvation [] Completed spiritual assessment [] Other: Impact on Illness or Injury [] Angry [] Fearful [] Anxious [] Often cries [] Exhaustion [] Unable to work [] Unable to attend islam [] Unable to walk/stand [] Unable to read [] Unable to drive [] Unable to eat/drink [] Unable to sleep [] Unable to be with family [] Patient intubated [] Other: Summary Time spent with patient
--- NOTE | 2024-04-05 09:28 | W.PM.OPSUD ---
Surgery/Procedure H&P Update DATE OF PROCEDURE: April 05, 2024 DATE H&P PERFORMED: 04/05/24 H&P UPDATE INFORMATION: I have reviewed H&P completed within last 30 days, I have examined patient prior to procedure and No changes to prior documentation CHANGES TO PREVIOUS DOCUMENTATION: Please refer to detailed consult note for detailed HPI. At this point in time patient's had a ground-level fall sustaining a left intertrochanteric femur fracture as well as a left distal radius and distal ulna fracture. Significant displacement on the distal radius currently in a volar splint. As well as shortened and externally rotated to the left lower extremity. His POA is present available at bedside we reviewed and signed consent with her today. Plan will be for a left hip trochanteric femur nail, left distal radius open reduction internal fixation. Patient's POA understands the ins and outs of procedure the risk benefits complication alternatives with surgery. Risk of surgery include but are not limited to make a better make it worse injury to nerves vessels or tendons, hardware failure, malunion, nonunion, persistent pain, Infection. Understanding risk of surgery patient POA elects proceed with surgical intervention all questions have been answered at this time. Proceed with surgery today. PREOP DIAGNOSIS: Left hip intertrochanteric femur fracture, left distal radius and distal ul PRIMARY INDICATION FOR PROCEDURE: Left hip intertrochanteric femur fracture, left distal radius and distal ulna fracture PLANNED PROCEDURE: Operation Date: 04/05/24 17:10 Proposed Procedures p Trochanteric Femoral Nail(Left) - DO dinesh Platt ORIF Wrist ORIF Distal Radius(Left) - Jerrell Manrique DO
[2024-04-05] MEDS: clindamycin 900 MG/50 ML PREMIX 100 MG IV ×3 (09:35→22:55)
[2024-04-05] MEDS: tranexamic acid 1,000 mg/10mL SDV 1000 MG IV (09:50)
--- NOTE | 2024-04-05 10:40 | PC.NURSE ---
family called and updated [id number]
--- NOTE | 2024-04-05 10:57 | P.PN_ITS ---
Subjective 2 Subjective: Patient went for intervention today Will need custodial placement came from assisted living Vitals/I&O/Wt Last Vital Signs Temp 97.8 F 04/05/24 04:00 Pulse 61 04/05/24 04:00 Resp 17 04/05/24 04:00 BP 132/71 04/05/24 04:00 Pulse Ox 97 04/05/24 04:00 O2 Del Method Nasal Cannula 04/05/24 04:00 O2 Flow Rate 1 04/05/24 04:00 04/04/24 04/05/24 04/05/24 22:59 06:59 14:59 Intake Total 50 / 50 Output Total 300 / 300 Balance -300 / -300 50 / 50 Weight last 48 hrs Weight 61.377 kg Weight 60.963 kg Weight 57.153 kg Physical Exam 2 Narrative: Postop on 1 L nasal cannula Normal hemodynamics Splint to left wrist Dressing left leg Grewal catheter in place S1, S2 Abdomen soft No signs of neurovascular compromise of upper or lower extremity Urinary Catheter Management: Grewal: Cath Placed During This Visit: yes Reason for Continuing Indwelling Catheter: Required Immobilization for Trauma or Surgery or Anesthesia Urinary Catheter Date of Insertion: 04/05/24 Urinary Catheter Time of Insertion: 00:45 Data 04/05/24 08:10 04/05/24 08:10 A&P Assessment and plan (1) Closed left hip fracture: (2) Left wrist fracture: Plan Opioids along bowel regimen Status post intervention postop day 0 Hemodynamically stable Currently on room air Atelectasis incentive spirometer to prevent atelectasis Keep splint on left wrist Add DVT prophylaxis after surgery Patient will need custodial placement Full code COPD: No acute exacerbation Patient has a Grewal catheter has history of BPH Will do voiding trial before discharge History of prostate cancer as well Preserved ejection fraction heart failure without acute exacerbation Pulmonary hypertension history as well, no acute exacerbation Attestations 2 Medical Necessity Statement*: Continue medical management Diagnoses Closed left hip fracture S72.002A Left wrist fracture S62.102A
--- NOTE | 2024-04-05 12:09 | P.BOP_ITS ---
Date of Procedure: 04/05/2024 Surgeon: Jerrell Manrique DO Fish And Game Warden(s): Prosper Manrique PA-C Procedure(s) performed: Left hip trochanteric femur nail Left distal radius open reduction internal fixation (greater than 4 part intra- articular) Left distal ulna fracture closed treatment with sugar-tong splint Findings of the procedure(s): Patient found to have left stable intertrochanteric femur fracture underwent fixation as planned without issues or complications and subsequently underwent left distal radius open reduction internal fixation. Patient found to have significant comminution four-part intra-articular as well as comminuted distal ulna fracture in order to allow for platform walking we will place patient in sugar-tong splint and open can platform walker through the forearm of the left forearm. Can weight-bear as tolerated to left lower extremity will be admitted back to the floor postoperatively. Estimated blood loss: 100 mL Specimen(s) removed: None Post-operative diagnosis: Left intertrochanteric femur fracture, comminuted left distal radius and distal ulna fracture
--- NOTE | 2024-04-05 12:10 | P.OP_ITS ---
Operative Report Date of procedure: April 05, 2024 Surgeon: Jerrell Manrique DO [employer]iture [employer] Supervisor: Prosper Manriuqe PA-C: For the left trochanteric femur nail, PA was necessary for assistance in this case with leg positioning assistance with reduction, retraction, as well as assistance in implantation wound closure and dressing application. For left distal radius and distal ulna fracture, PA was necessary for assistance in this case with hand positioning to execute the procedure, assistance with holding reduction as well as implantation fixation retraction and protection of neurovascular structures as well as to assist with wound closure and dressing application. Procedure: Preoperative diagnosis: Left displaced intertrochanteric femur fracture, left displaced and angulated distal radius and distal ulna fracture Postoperative diagnosis: same(Left intertrochanteric femur fracture, comminuted left distal radius and distal ulna fracture) Procedure done: Left hip trochanteric femur nail Left distal radius open reduction internal fixation (greater than 4 part intra- articular) Left distal ulna fracture closed treatment with sugar-tong splint Implants: [place] gamma nail short 11 mm x 180 mm x 125 degree Lag screw 10.5 mm x 110?mm Distal?locking screw 5 mm x?37.5?mm Arthrex 5 hole standard left distal radius volar plate combination of locking and nonlocking screws Surgeon: Jerrell Manrique DO Estimated blood?loss: 100 mL mm IV fluids: See anesthesia record Urine output: See anesthesia record Complications: See operative report Findings: See operative report narrative Condition: stable Disposition: Floor Brief History: Patient sustained a fall and was found to have a?Left intertrochanteric hip fx and comminuted left distal radius and distal ulna fracture..?Pt has?been unable to bear weight,?Left?hip/lower extremity shortened and externally rotated.? Patient currently in a splint to the left upper extremity. At this point time Pt?was admitted by the hospitalist team and orthopedics was consulted.??Refer to consult note for detailed HPI.??We talked about treatment options as far as nonoperative and operative intervention. Recommend?Left?hip?trochanteric femur nail as well as left distal radius open reduction internal fixation, with likely planning on conservative treatment with a sugar-tong splint for the distal ulna fracture. Patient is accompanied by his family including his POA.??At this point time patient and family/POA would?like to pursue surgical intervention for benefits of pain control and earlier mobilization utilizing platform walker.?? Patient and family/POA understands the ins and outs of procedure, the risk benefits complication alternatives of surgical nonsurgical treatment options.? Understanding risk of surgery?pt/POA?agrees to proceed with surgical intervention all questions answered.? Consent obtained. Procedure: Patient seen evaluated in the preoperative holding area.? Consent was obtained.? Correct extremity was then marked.? Once cleared by anesthesia and the hospitalist team patient was taken back to the operative suite.? Patient underwent anesthesia per the anesthesia department.? Once appropriately anesthetized patient was placed on a fracture Pam[place]o table.? Patient was appropriately secured to the bed.? All bony prominences were well-padded.? At this point time patient received appropriate preoperative antibiotics.? Final timeout was performed.? We started with the hip fracture fixation first. Prior to beginning surgery a standard closed reduction maneuver was placed on the Pam[place]o table and?large C-arm was brought in.? After performing a closed reduction maneuver there was able to achieve satisfactory reduction of?Left?intertrochanteric femur fracture.? Fracture site did not extend into the subtrochanteric region as result plan was for a short nail.?? This point time the right?lower extremity was then prepped and draped in standard orthopedic fashion. A standard?longitudinal incision was made just proximal to the greater?trochanter roughly 4 cm in?length sharp scalpel vision was made through skin and subcutaneous tissue.? I then utilized a blunt Zapata to split? fascia and mobilized directly down to the greater?trochanter.? I then inserted my starting guidewire which was placed appropriate starting position the tip of the greater?trochanter.? This was advanced in AP and?lateral films to be in center center position and advanced to the?level?lesser?trochanter.? This was confirmed to be in center center position on AP and?lateral imaging.? Once this was done I then introduced my opening reamer which was then subsequently guide pin removed.? I selected a 11 mm x 180 mm x 125 degree. At this point time the nail was then?loaded onto the [place] gamma?trochanteric nail guide.? This was placed within the canal and confirmed with XR and the setscrew was then gently placed not?locked.? The nail was then impacted to appropriate depth .? At this point time I then inserted my?lag screw guide and subsequently made a small incision through skin and subcutaneous tissue splitting the IT band?longitudinally and the guide was placed directly onto bone.? Next I then subsequently placed the gu idewire in center center position in the head with an appropriate tip to apex distance this was confirmed with multiple orthogonal images.? Once I was satisfied with my planned?lag screw placement I then measured which was?110?mm.? I then set my cannulated drill and subsequently reamed this into the head at appropriate depth.? I then had my rep open the 10.5 mm x?110?mm?lag screw which was then opened on the back table and subsequently screwed into place over my cannulated drill guide.? This was placed with excellent tip to apex distance.? Next I then utilized the compressing device and subsequently compressed my fracture after I?let off traction.? This had excellent fracture compression and opposition and closing down to my fracture?line.? Next I then?locked the nail by?locking my setscrew.? This point time the guidewire as well as the sleeve was then removed.? Next I plan for statically?locking the nail distally.? This triple sleeve was then placed a small stab incision was made blunt dissection directly down to bone and the guide sleeve was placed and?locked directly onto the bone.? I then inserted the drill bit and subsequently drilled bicortically measured appropriate?length screw and then placed a 37.5?mm distal interlocking screw and had excellent fixation was appropriate?length.? This point time is completed my construct I remove the outer jig and took final images of AP and?lateral of the?Left?intertrochanteric femur fracture which showed stable reduction and stable fixation.? Incision was then thoroughly irrigated.? Hemostasis was maintained with electrocautery.? I then once again thoroughly irrigated the incisions and then subsequently closed in?layered fashion of 0 Vicryl 2-0 Vicryl and dawit.? Silverlon dressings applied.? Patient tolerated procedure without complications. Next I then had OR team took down all drapes as well as reposition patient with an armboard to the left upper extremity and then subsequently proceeded with the left distal radius ORIF. Volar splint was subsequently taken down. Left upper extremity was then prepped and draped in sterile orthopedic fashion. Patient had a nonsterile tourniquet initially applied to the left upper extremity. We once again did an additional final timeout confirming procedure for left distal radius ORIF. Esmarch was used exsanguinate the left upper extremity and tourniquet was insufflated to 250 mmHg. A standard modified FCR volar approach was performed to the left?distal?radius.? Sharp scalpel incision through skin and subcutaneous tissue.? I then switched to Littler dissection scissors identify the FCR tendon releases out of the sheath both proximally and?distally mobilized the tendon ulnarly and then subsequently incised the floor of the FCR tendon sheath with care to just incise the floor.? I then bluntly sweep the FPL tendon muscle belly ulnarly and placed blunt self- retaining retractor.? At this point time I direct visualization of the pronator quadratus which was incised in standard L fashion off the?radial and?distal?border in the?distal?radius and fracture site was scraped clean of interposed muscle belly.? I then identified the greater than 4 part intra-articu lar?distal?radius fracture.? Patient had significant comminution and no periosteum assisting her alignment reduction. I did have to release brachial radialis to help mobilize the fracture fragment to help assist in reduction. This was subsequently opened above and freed of interposing muscle belly as well as periosteum and fracture hematoma.? I did have to utilize my Kingsley which was placed through the fracture pattern and disengage the fracture and performed manual manipulation and achieve reduction of the?distal?radius fracture.? Given the combination this was hard to be held out to length as a result I placed a K wire pin through the radial styloid into the metaphysis across the fracture site to help have some preliminary fixation to hold this while I applied the plate. Given this was significantly comminuted as well as throughout the entire metaphysis and his softer bone quality given his age elected for a 5 hole plate for added fixation. ?Once satisfied with reduction and had appropriate reduction of the volar cortex.? This was confirmed with mini C arm in multiple orthogonal imaging.? At this point time? I selected a Arthrex anatomic?distal?radius plate utilizing a standard 5-hole plate which would have appropriate spread?distally.? This was then placed up to the?distal?radius while maintaining my reduction, pins were placed?distally and proximally to confirm appropriate placement of the plate along the?distal?radius.? Minor adjustments were made and once I was satisfied I then subsequently drilled a bicortical 3.5 screw proximally in the oblong hole to allow for appropriate sliding of the?distal?radius plate appropriately to perfect position on the?distal?radius.? This had excellent fixation and purchase and brought the plate to bone.? While maintaining my reduction I then confirmed in multiple orthogonal imaging that my plate was in appropriate position.? Once satisfied with my position I then subsequently placed the peek targeting guide on the?distal?locking screws with Arthrex.? The locking guide was then subsequently loaded and I subsequently drilled and placed a fully threaded cortical screw to compress the plate to bone for the?distal?fracture fragment.? This was performed with plan to then remove this and placed a shorter locking screw had bicortical fixation with excellent purchase and appropriate reduction of my volar tilt and bringing plate to bone of the?distal?fragment and plate.? Once I was satisfied with my plate position as well as reduction of the?distal?radius which was confirmed on AP oblique and lateral imaging I then subsequently drilled measured and placed 3 locking screws around this cortical screw.? Then I subsequently removed the cortical screw and placed a shorter locking screw that did not penetrate the dorsal cortex. I tried to place the radial styloid screw however this kept falling and appearing to penetrate the radial cortex and worried about this being prominent over the tendons in this area as a result the screw was left alone as I had for excellent screw purchase is in the distal fracture fragment.?? This completed my?distal?fixation.? I did utilize mini C arm to confirm appropriate placement of the screws these were all within the?distal?radius and no joint involvement within the?radiocarpal joint or the DRUJ.? These had appropriate subchondral support greater than 60% was covered and maintenance of reduction and fixation of the?distal?radius fracture.? ?I then turned my attention proximally and then I screwed in the locking guides for my final to screws proximally these were then subsequently drilled measured and appropriate length locking and nonlocking screws were then placed proximally with excellent fixation and locking technology into the plate.? This completed my construct.? The peek guide was subsequently removed and final imaging of the left?distal?radius open reduction internal fixation was taken of AP lateral as well and is orthogonal imaging.? I then took a inclination view which showed my?radial styloid screw was out of the penetration of the joint.? All my?distal?screws were appropriate length did not penetrate dorsal cortex and did not penetrate the joint.? This completed my fixation.? Smooth wrist range of motion was then noted with no evidence of clicking. Patient comminuted distal radius fracture had minimal room distally for fixation as well as this was sitting in good alignment my plan as I discussed previously with the patient's family added incision as well as either K wire fixation would inhibit him from earlier mobilization or would potentially cause problems given this was in good alignment my plan was for sugar-tong immobilization of pronation and supination to allow this to heal on its own without an added incision and risk for hardware failure prominence in this area as a feel he would do well with the current alignment it was in. I subsequently took final x-rays satisfied with distal radius fixation and fracture stability while taking the wrist through range of motion. DRUJ appeared to be stable however significant comminution with the ulna clouded my examination and as result this will be treated with closed treatment of immobilization of pronation supination over the next 4 weeks with close treatment of the distal ulna fracture. The wound was then thoroughly irrigated.? Tourniquet was then subsequently deflated.? Hemostasis satisfactory with bipolar electrocautery.? I then subsequently placed interrupted 3-0 Vicryl sutures for subcutaneous tissue and then subsequently placed a nylon the skin for closure.? Incision was then dressed with Xeroform 4 x 4's Kerlix cast padding and a sugar-tong Ortho-Glass splint was then applied in neutral position with Montez wrap and placed in a sling.? Disposition: Patient taken to PACU in stable condition.? Postoperatively,? Patient to receive appropriate discharge instructions as well as pain medication DVT prophylaxis postoperatively.? Patient will be allowed weightbearing as tolerated?Left?lower extremity.? To encourage mobilization we will allow platform walker through the sugar-tong splint to the left upper extremity but no weightbearing to the left upper extremity. Will receive appropriate postoperative antibiotics, PT/OT.? Patient to follow-up in the orthopedic office in 2 weeks.? Patients family understands and agrees with current plan.??
--- NOTE | 2024-04-05 12:15 | XRR_ITS ---
PROCEDURE INFORMATION: Exam: XR Left Wrist Exam date and time: 04/05/2024 12:55 PM Age: 88 years old Clinical indication: Device placement; Joint fixation hardware; Prior surgery; Surgery date: Post-operative (0-2 days); Surgery type: Distal radius orif TECHNIQUE: Imaging protocol: Radiologic exam of the left wrist. Views: 1 or 2 views. COMPARISON: OT XR wrist LT 2V [id number] 04/05/2024 11:57 AM FINDINGS: Tubes, catheters and devices: A splint is in place. Bones/joints: ORIF of a fracture of the distal radius currently in anatomic alignment. Hardware intact. Slightly displaced fracture of the distal ulna. Soft tissues: Normal. XR/XR wrist LT 2V [id number] IMPRESSION: ORIF.
--- NOTE | 2024-04-05 12:15 | XRR_ITS ---
PROCEDURE INFORMATION: Exam: XR Left Hip Exam date and time: 04/05/2024 12:58 PM Age: 88 years old Clinical indication: Device placement; Other: Troch nail; Prior surgery; Surgery date: Post-operative (0-2 days); Additional info: S/P troch nail TECHNIQUE: Imaging protocol: Radiologic exam of the left hip. Views: 2 or 3 views hip with pelvis when performed. COMPARISON: OT XR hip LT 2-3V wo/w pel* [id number] 04/05/2024 10:40 AM FINDINGS: Bones/joints: ORIF of the proximal left femur. Anatomic alignment. Bone and metal are intact. . No acute fracture. Soft tissues: Lateral skin dawit are present. XR/XR hip LT 2-3V wo/w pel* [id number] IMPRESSION: No acute findings.
[2024-04-05] MEDS: lidocaine 1% 10 ML INJ INJECTION (12:22)
[2024-04-05] MEDS: ROPivacaine 0.5% SDV 30 mL 150 MG INJECTION (12:22)
--- NOTE | 2024-04-05 12:28 | XR_ITS ---
WS: [id number] C-ARM RADIOGRAPHS LEFT WRIST; 4 IMAGES HISTORY: OR PICS COMPARISON: None available. Intraoperative imaging during volar plate and screw fixation of the distal radial fracture. Fracture in normal alignment post ORIF. Nondisplaced fracture distal ulna. XR/XR wrist LT 2V [id number] IMPRESSION: Intraoperative imaging during ORIF distal radial fracture.
--- NOTE | 2024-04-05 12:29 | XR_ITS ---
WS: [id number] C-ARM RADIOGRAPHS LEFT HIP; 4 IMAGES HISTORY: OR PICS COMPARISON: None available. Intraoperative imaging during gamma nail and short intramedullary placement stabilizing an intertroch anteric hip fracture. Fracture good position and alignment. XR/XR hip LT 2-3V wo/w pel* [id number] IMPRESSION: Intraoperative imaging during ORIF LEFT hip.
--- NOTE | 2024-04-05 13:25 | ANE.PACU2 ---
Inpatient post-anesthesia follow up: Airway intact: Yes Vital signs: Temperature 97.8 F Pulse Rate 77 Respiratory Rate 18 Blood Pressure 117/67 Pulse Oximetry 95 Oxygen Delivery Me thod Room Air Oxygen Flow Rate 1 Fraction of Inspir ed Oxygen Hydration adequate: Yes Nausea and vomiting: No Pain level: 1 Mental status: Baseline
[2024-04-05] MEDS: chlorhexidine gluconate 0.12% Btl 473 mL 30 ML MUCOUS MEM ×3 (14:28→22:56)
[2024-04-05] MEDS: ketorolac 30 mg/mL INJ 15 MG IVP (16:15)
[2024-04-05] MEDS: acetaminophen 325 mg Tablet 650 MG PO (16:17)
[2024-04-05] MEDS: OXcarbazepine 300 mg Tablet PO (18:17)
[2024-04-05] MEDS: calcium carb-vit d 600mg/400unit 1 Tablet 1 EACH PO (18:17)
[2024-04-05] MEDS: hyDRALAzine 10 mg Tablet PO (18:17)
[2024-04-05] MEDS: metoprolol tartrate 50 mg Tablet 100 MG PO (18:17)
[2024-04-05] MEDS: iron polysaccharide complex 150 mg Capsule PO (18:17)
[2024-04-05] MEDS: tranexamic acid 1,000 MG/100 ML PREMIX 600 MG IV (18:18)
[2024-04-05] MEDS: mupirocin oint 22 gm 1 APPLIC NASAL (18:18)
[2024-04-05] MEDS: budesonide 0.5 mg/2 mL Neb INHALATION (21:37)
[2024-04-05] MEDS: enoxaparin 40 mg/0.4 mL Syringe SUBCUT (22:55)
--- NOTE | 2024-04-05 23:11 | PC.NURSE ---
At this time, patient states that he is not having any pain. Patient educated to inform a staff member if he begins to have pain.
[2024-04-06] VITALS (13 sets, daily range): BP systolic 81–137; BP diastolic 37–70; PULSE 64–88; RESP 14–19; TEMP 36.3–37.2; O2SAT 74–96
--- NOTE | 2024-04-06 03:07 | PC.NURSE ---
Patient still states that he is not having any pain.
[2024-04-06] MEDS: oxyCODONE-APAP 5-325 mg Tablet 1 TAB PO ×2 (05:10→10:38)
[2024-04-06] MEDS: clindamycin 900 MG/50 ML PREMIX 100 MG IV (05:12)
[2024-04-06 06:02] LABS: Eosinophils % 0.6 %; Hematocrit 26.1 % (37-53); Lymphocytes # 0.8 10^3/uL (0.8-4.8); Lymphocytes % 11.3 %; Mean Corpuscular HGB Conc 34.1 g/dL (30-55); Mean Corpuscular Hemoglobin 30.8 pg (27-33); Mean Corpuscular Volume 90.3 fl (82-101); Mean Platelet Volume 8.4 fL (7.4-10.4); Monocytes # 0.7 10^3/uL (0.2-0.9); Monocytes % 10.4 %; Neutrophils # 5.29 10^3/uL (1.8-7.7); Neutrophils % 77.3 %; Nucleated Red Blood Cells % 0 %; Platelet Count 115 10^3/cmm (157-399); Red Blood Count 2.89 10^6/uL (3.85-5.65); Red Cell Distribution Width 12.3 % (12.1-15.1); White Blood Count 6.84 10^3/uL (3.29-11.43)
[2024-04-06 06:22] LABS: Anion Gap 9.6 (5-19); Blood Urea Nitrogen 22 mg/dL (8-23); Calcium 8.2 mg/dL (8.5-10.5); Carbon Dioxide 29 mmol/L (22-29); Chloride 94 mmol/L (98-107); Creatinine Clr Calc Pharmacy 56.2728; Glucose 99 mg/dL (65-115); Osmolality Calculated 271 mOsm/kg (285-295); Potassium 3.6 mmol/L (3.5-5.1); Sodium 129 mmol/L (136-145)
--- NOTE | 2024-04-06 07:14 | PC.NURSE ---
Patient asking for anxiety pill that he takes every morning at [address] Perez notified that med rec shows that patient takes Ativan 0.5mg daily and PRN at home. Ordered to continue these medications.
[2024-04-06] MEDS: iron polysaccharide complex 150 mg Capsule PO ×2 (08:03→17:23)
[2024-04-06] MEDS: LORazepam 0.5 mg Tablet PO (08:12)
[2024-04-06] MEDS: chlorhexidine gluconate 0.12% Btl 473 mL 30 ML MUCOUS MEM ×3 (08:37→21:07)
[2024-04-06] MEDS: mupirocin oint 22 gm 1 APPLIC NASAL (08:38)
[2024-04-06] MEDS: hyDRALAzine 10 mg Tablet PO ×2 (08:38→17:23)
[2024-04-06] MEDS: aspirin 81 mg Chew Tablet PO (08:39)
[2024-04-06] MEDS: calcium carb-vit d 600mg/400unit 1 Tablet 1 EACH PO ×2 (08:39→17:23)
[2024-04-06] MEDS: metoprolol tartrate 50 mg Tablet 100 MG PO ×2 (08:40→17:23)
[2024-04-06] MEDS: multivitamin therapeutic Tablet 1 TAB PO (08:40)
[2024-04-06] MEDS: losartan 50 mg Tablet 100 MG PO (08:40)
--- NOTE | 2024-04-06 09:57 | PC.CHAP ---
Pastoral Care Encounter/Spiritual Assessment Type of Contact [] Declined chain sales consultant visit [] Patient/Family/Request visit [] Outpatient visit [] Follow-up visit [] Physician referral [] Code/Alert [x] Routine visit [] Staff referral [] Actively dying [] Patient sleeping [] Family support [] [] Out of room [] Palliative care [] [] Receiving care in room [] Pre-surgical visit [] Trauma [] Long length of stay [] ICU visit [] Other: Relational/Emotional Strength [x] Patient feels connected with others/family/visitors/staff [] Distress [] Loneliness/isolation [] Abandonment Spirituality of Patient [xx] Person of [place] [] Attends Hindu of their [place] [x] Believes in Prayer [] Reads Bible or Episcopal materials [] There are Spiritual issues to be addressed Platemaker Interventions [x] Prayer [x] Active listening [] Non-anxious presence [x] Spiritual/emotional support [] Crisis/trauma care [] Spiritual counseling [] Bereavement support [] Provided bereavement packet [] Provided Bible/devotional materials [] Provided toy/stuffed animal, coloring book to patient or family member [] Provided Communion [] Anointing/[place] [] Salvation [x] Completed spiritual assessment [] Other: Impact on Illness or Injury [] Angry [] Fearful [] Anxious [] Often cries [] Exhaustion [] Unable to work [] Unable to attend anglican [] Unable to walk/stand [] Unable to read [] Unable to drive [] Unable to eat/drink [] Unable to sleep [] Unable to be with family [] Patient intubated [] Other: Summary Time spent with patient 5 min
[2024-04-06] MEDS: tamsulosin 0.4 mg Capsule PO (10:42)
[2024-04-06] MEDS: OXcarbazepine 300 mg Tablet PO ×2 (10:42→17:23)
[2024-04-06] MEDS: sennosides-docusate Tablet 1 TAB PO (10:42)
--- NOTE | 2024-04-06 12:27 | P.PN_ITS ---
Subjective 2 Subjective: Patient not noticing worsening of pain Grewal catheter has been removed Awaiting half-way placement Vitals/I&O/Wt Last Vital Signs Temp 98.9 F 04/06/24 11:43 Pulse 78 04/06/24 11:43 Resp 17 04/06/24 11:43 BP 96/54 04/06/24 11:43 Pulse Ox 94 04/06/24 11:43 O2 Del Method Room Air 04/06/24 11:43 O2 Flow Rate 1 04/05/24 04:00 04/05/24 04/06/24 04/06/24 22:59 06:59 14:59 Intake Total 890 / 1840 350 / 2190 120 / 120 Output Total 570 / 970 200 / 1170 Balance 320 / 870 150 / 1020 120 / 120 Weight last 48 hrs Weight 59.738 kg Weight 61.377 kg Weight 60.963 kg Weight 57.153 kg Physical Exam 2 Narrative: Left arm is in a sling Currently on room air No active pain Abdomen soft No extremity no edema patient having relief S1, S2 96/54mmhg No audible stridor or wheezing Urinary Catheter Management: Grewal: Cath Placed During This Visit: yes, but has since been removed by the nurse Reason for Continuing Indwelling Catheter: Decision to DC Catheter Urinary Catheter Date of Insertion: 04/05/24 Urinary Catheter Time of Insertion: 00:45 Date Urinary Catheter Removed: 04/06/24 Time Urinary Catheter Discontinued: 05:51 Data 04/06/24 05:55 04/06/24 05:55 A&P Assessment and plan (1) Closed left hip fracture: (2) Left wrist fracture: Plan Status post intervention postop day 1 Hemodynamically stable Currently on room air COPD: No acute exacerbation Grewal catheter removed Preserved ejection fraction heart failure without acute exacerbation Pulmonary hypertension history as well, no acute exacerbation Awaiting PLACEMENT DVT prophylaxis added Attestations 2 Medical Necessity Statement*: Awaiting placement Diagnoses Closed left hip fracture S72.002A Left wrist fracture S62.102A
--- NOTE | 2024-04-06 16:25 | P.PN_ITS ---
Documented by User: PETE Hart 04/06/24 16:46 Subjective 2 Subjective: Patient is a 88-year-old male that is 1 day postop left wrist fracture ORIF and left hip ORIF with Trochanteric Femur nail. No acute events overnight. Patient is having some muscle cramps in his legs and sole physical therapy today. Denies any fevers, nausea or vomiting. He has been able to keep some food and fluids down since surgery. Vitals/I&O/Wt Last Vital Signs Temp 98.5 F 04/06/24 15:47 Pulse 83 04/06/24 15:47 Resp 18 04/06/24 15:47 BP 121/68 04/06/24 15:47 Pulse Ox 92 04/06/24 15:47 O2 Del Method Room Air 04/06/24 15:47 O2 Flow Rate 1 04/05/24 04:00 04/06/24 04/06/24 04/06/24 06:59 14:59 22:59 Intake Total 350 / 2190 120 / 120 Output Total 200 / 1170 Balance 150 / 1020 120 / 120 Weight last 48 hrs Weight 131 lb 11.2 oz Weight 135 lb 5 oz Weight 134 lb 6.4 oz Weight 126 lb Physical Exam 2 Const: COMMON NORMALS: no acute distress and alert Resp: COMMON NORMALS: normal respiratory effort and No retractions Cardio: COMMON NORMALS: Peripheral pulses 2+ throughout PERIPHERAL PULSES: Peripheral pulses 2+ throughout Extremity: NARRATIVE EXTREMITY EXAM: Left arm?exam limited due to splint. Fingers are warm and well-perfused. He has sensation of his fingers that are intact. Normal cap refill under 2 seconds. Patient can wiggle fingers as well. Left leg?surgical Dressing is dry and in place. Compartments are soft and compressible. Patient still has some pain with logroll test. He is able to dorsiflex and plantarflex foot. Toes are warm and well-perfused with normal cap refill under 2 seconds. Pedal pulse 2+. Neuro: SENSORIUM/ORIENTATION: Yes alert Skin: GENERAL SKIN EXAM: dry skin Urinary Catheter Management: Grewal: Cath Placed During This Visit: yes, but has since been removed by the nurse Reason for Continuing Indwelling Catheter: Decision to DC Catheter Urinary Catheter Date of Insertion: 04/05/24 Urinary Catheter Time of Insertion: 00:45 Date Urinary Catheter Removed: 04/06/24 Time Urinary Catheter Discontinued: 05:51 Data 04/06/24 05:55 04/06/24 05:55 A&P Assessment and plan (1) Closed left hip fracture: (2) Left wrist fracture: Plan Plan: Patient is 1 day postop left hip fracture ORIF with trochanteric femur nail and left wrist fracture ORIF. -Imaging and Labs reviewed -Hospitalist on board for medical management. -VTE prophylaxis -Weightbearing as tolerated on left leg -No weight bearing on left arm -Keep splint on left wrist -Pain control -Physical therapy and Occupational Therapy We will continue following patient and see them tomorrow. Attestations 2 Medical Necessity Statement*: Ongoing care for left hip fracture and left wrist fracture. Coding Level of Care Code Acute Code for Chg Fwd Diagnoses Closed left hip fracture S72.002A Left wrist fracture S62.102A Documented by User: Jerrell Manrique DO 04/06/24 22:29 Physical Exam 2 Urinary Catheter Management: Grewal: Cath Placed During This Visit: yes, but has since been removed by the nurse Data 04/06/24 05:55 04/06/24 05:55 A&P Assessment and plan (1) Closed left hip fracture: (2) Left wrist fracture: Plan Plan: Patient is 1 day postop left hip fracture ORIF with trochanteric femur nail and left wrist fracture ORIF. -Imaging and Labs reviewed -Hospitalist on board for medical management. -VTE prophylaxis -Weightbearing as tolerated on left leg -No weight bearing on left arm (may utilize platform walker to the left forearm with splint on for help with mobilization) -Keep splint on left wrist -Pain control -Physical therapy and Occupational Therapy We will continue following patient and see them tomorrow. Attending addendum: Agree with PAs assessment and plan. Orthopedics will continue to follow. All questions answered. Coding Level of Care Code Acute Code for Chg Fwd Diagnoses Closed left hip fracture S72.002A Left wrist fracture S62.102A
[2024-04-06] MEDS: acetaminophen 650 mg/20.3 mL UDC PO (17:23)
[2024-04-06] MEDS: ketorolac 30 mg/mL INJ 15 MG IVP (18:58)
[2024-04-06] MEDS: TRAMadol 50 mg Tablet PO (18:58)
[2024-04-06] MEDS: enoxaparin 40 mg/0.4 mL Syringe SUBCUT (21:07)
[2024-04-07] VITALS (10 sets, daily range): BP systolic 96–146; BP diastolic 56–78; PULSE 66–95; RESP 16–18; TEMP 36.8–37.3; O2SAT 93–99
[2024-04-07 06:01] LABS: Basophils % 0.3 %; Eosinophils # 0.1 10^3/uL (0.0-0.8); Eosinophils % 0.8 %; Hematocrit 23.5 % (37-53); Lymphocytes # 0.9 10^3/uL (0.8-4.8); Lymphocytes % 13.9 %; Mean Corpuscular Hemoglobin 30.7 pg (27-33); Mean Platelet Volume 10.2 fL (7.4-10.4); Monocytes # 0.7 10^3/uL (0.2-0.9); Neutrophils # 4.83 10^3/uL (1.8-7.7); Neutrophils % 73.5 %; Nucleated Red Blood Cells % 0 %; Platelet Count 143 10^3/cmm (157-399); Red Blood Count 2.61 10^6/uL (3.85-5.65); Red Cell Distribution Width 12.5 % (12.1-15.1); White Blood Count 6.56 10^3/uL (3.29-11.43)
[2024-04-07] MEDS: TRAMadol 50 mg Tablet PO (07:00)
[2024-04-07 07:25] LABS: Blood Urea Nitrogen 24 mg/dL (8-23); Calcium 8.4 mg/dL (8.5-10.5); Carbon Dioxide 29 mmol/L (22-29); Chloride 97 mmol/L (98-107); Creatinine Clr Calc Pharmacy 57.4558; Glucose 106 mg/dL (65-115); Osmolality Calculated 282 mOsm/kg (285-295); Sodium 134 mmol/L (136-145)
[2024-04-07 07:29] LABS: Anion Gap 12.4 (5-19); Potassium 4.4 mmol/L (3.5-5.1)
[2024-04-07] MEDS: calcium carb-vit d 600mg/400unit 1 Tablet 1 EACH PO ×2 (08:29→16:59)
[2024-04-07] MEDS: metoprolol tartrate 50 mg Tablet 100 MG PO (08:29)
[2024-04-07] MEDS: aspirin 81 mg Chew Tablet PO (08:29)
[2024-04-07] MEDS: sennosides-docusate Tablet 1 TAB PO (08:30)
[2024-04-07] MEDS: losartan 50 mg Tablet 100 MG PO (08:30)
[2024-04-07] MEDS: iron polysaccharide complex 150 mg Capsule PO ×2 (08:30→16:59)
[2024-04-07] MEDS: hyDRALAzine 10 mg Tablet PO (08:30)
[2024-04-07] MEDS: mupirocin oint 22 gm 1 APPLIC NASAL (08:31)
[2024-04-07] MEDS: chlorhexidine gluconate 0.12% Btl 473 mL 30 ML MUCOUS MEM ×3 (08:31→22:50)
[2024-04-07] MEDS: tamsulosin 0.4 mg Capsule PO (08:31)
[2024-04-07] MEDS: multivitamin therapeutic Tablet 1 TAB PO (08:31)
[2024-04-07] MEDS: budesonide 0.5 mg/2 mL Neb INHALATION (08:40)
[2024-04-07] MEDS: ipratropium-albuterol 3 mL Neb INHALATION (08:40)
[2024-04-07] MEDS: LORazepam 0.5 mg Tablet PO ×2 (08:41→22:51)
[2024-04-07] MEDS: OXcarbazepine 300 mg Tablet PO ×2 (09:00→17:01)
[2024-04-07 09:01] LABS: Estmated Average Glucose 97
--- NOTE | 2024-04-07 09:04 | PC.SOCIAL ---
IMM Updated Updated pt on IMM. No questions voiced. Provided pt a copy. Initialed, dated, & timed a copy & placed in chart.
[2024-04-07] MEDS: acetaminophen 650 mg/20.3 mL UDC PO ×2 (09:29→16:59)
--- NOTE | 2024-04-07 10:55 | P.PN_ITS ---
Subjective 2 Subjective: Low blood pressure and H&H noted, I requested another H&H this morning Patient is complaining of pain He was asking about IV Tylenol but I did reassure him that he can take p.o. Tylenol for now along opioids Vitals/I&O/Wt Last Vital Signs Temp 99.2 F 04/07/24 07:28 Pulse 94 04/07/24 08:00 Resp 18 04/07/24 08:00 BP 146/78 04/07/24 08:30 Pulse Ox 93 04/07/24 08:00 O2 Del Method Room Air 04/07/24 08:00 O2 Flow Rate 2 04/07/24 02:45 04/06/24 04/07/24 04/07/24 22:59 06:59 14:59 Intake Total 240 / 360 120 / 120 Balance 240 / 360 120 / 120 Weight last 48 hrs Weight 63.078 kg Weight 59.738 kg Physical Exam 2 Narrative: No active signs of neurovascular compromise of left hand Fingertips are warm to touch I do not see any sign of cyanosis Sitting in a chair Currently on room air Hemodynamically stable Able to answer my questions appropriate Hard of hearing Urinary Catheter Management: Grewal: Cath Placed During This Visit: yes, but has since been removed by the nurse Reason for Continuing Indwelling Catheter: Decision to DC Catheter Urinary Catheter Date of Insertion: 04/05/24 Urinary Catheter Time of Insertion: 00:45 Date Urinary Catheter Removed: 04/06/24 Time Urinary Catheter Discontinued: 05:51 Data 04/07/24 05:30 04/07/24 06:55 A&P Assessment and plan (1) Closed left hip fracture: (2) Left wrist fracture: Plan Plan: Patient is 2 day postop left hip fracture ORIF with trochanteric femur nail and left wrist fracture ORIF. Low blood pressure noted, repeat H&H No sign of neurovascular compromise Continue opioids along bowel regimen Continue DVT prophylaxis of aspirin and Lovenox for now patient has Toradol and opioids on board Full code Awaiting placement Attestations 2 Medical Necessity Statement*: Awaiting placement for now Diagnoses Closed left hip fracture S72.002A Left wrist fracture S62.102A
[2024-04-07 11:30] LABS: Hematocrit 23.6 % (37-53)
--- NOTE | 2024-04-07 18:53 | P.PN_ITS ---
<Statement entered by Jerrell Manrique DO - 04/18/24 13:06> Patient seen and evaluated in edition with [facility]. Agree with PAs assessment and plan. Jerrell Manrique DO Orthopedic surgery Documented by User: PETE Hart 04/07/24 19:01 Subjective 2 Subjective: Patient is a 88-year-old male that is 2 days postop left wrist fracture ORIF and left hip ORIF with Trochanteric Femur nail. No acute events overnight. Patient is doing well and his pain is controlled. He was able to get up with physical therapy and walk today. He has been able to keep some food and fluids down since surgery. Vitals/I&O/Wt Last Vital Signs Temp 98.3 F 04/07/24 15:49 Pulse 72 04/07/24 15:49 Resp 17 04/07/24 15:49 BP 135/73 04/07/24 15:49 Pulse Ox 97 04/07/24 15:49 O2 Del Method Room Air 04/07/24 15:49 O2 Flow Rate 2 04/07/24 02:45 04/07/24 04/07/24 04/07/24 06:59 14:59 22:59 Intake Total 120 / 120 Output Total 100 / 100 100 / 200 Balance 20 / 20 -100 / -80 Weight last 48 hrs Weight 139 lb 1 oz Weight 131 lb 11.2 oz Physical Exam 2 Const: COMMON NORMALS: no acute distress and alert Resp: COMMON NORMALS: normal respiratory effort and No retractions Cardio: COMMON NORMALS: Peripheral pulses 2+ throughout PERIPHERAL PULSES: Peripheral pulses 2+ throughout Extremity: NARRATIVE EXTREMITY EXAM: Left arm?exam limited due to splint. Fingers are warm and well-perfused. He has sensation of his fingers that are intact. Normal cap refill under 2 seconds. Patient can wiggle fingers as well. Left leg?surgical Dressing is dry and in place. Compartments are soft and compressible. No hematoma seen. Negative log roll test. He is able to dorsiflex and plantarflex foot. Toes are warm and well-perfused with normal cap refill under 2 seconds. Pedal pulse 2+. Neuro: SENSORIUM/ORIENTATION: Yes alert Skin: GENERAL SKIN EXAM: dry skin Urinary Catheter Management: Grewal: Cath Placed During This Visit: yes, but has since been removed by the nurse Reason for Continuing Indwelling Catheter: Decision to DC Catheter Urinary Catheter Date of Insertion: 04/05/24 Urinary Catheter Time of Insertion: 00:45 Date Urinary Catheter Removed: 04/06/24 Time Urinary Catheter Discontinued: 05:51 Data 04/08/24 04:35 04/07/24 06:55 A&P Assessment and plan (1) Closed left hip fracture: (2) Left wrist fracture: Plan Plan: Patient is 2 day postop left hip fracture ORIF with trochanteric femur nail and left wrist fracture ORIF. -Imaging and Labs reviewed -Hospitalist on board for medical management. -VTE prophylaxis -Weightbearing as tolerated on left leg -No weight bearing on left arm (may utilize platform walker to the left forearm with splint on for help with mobilization) -Keep splint on left wrist -Pain control -Physical therapy and Occupational Therapy No more further orthopedic intervention at this time. We will follow patient peripherally. Attestations 2 Medical Necessity Statement*: Ongoing care for left hip and left wrist fracture Coding Level of Care Code Acute Code for Chg Fwd Diagnoses Closed left hip fracture S72.002A Left wrist fracture S62.102A Documented by User: Jerrell Manrique DO 04/18/24 13:06 Physical Exam 2 Urinary Catheter Management: Grewal: Cath Placed During This Visit: yes, but has since been removed by the nurse Data 04/08/24 04:35 04/07/24 06:55 A&P Assessment and plan (1) Closed left hip fracture: (2) Left wrist fracture: Coding Level of Care Code Acute Code for Chg Fwd Diagnoses Closed left hip fracture S72.002A Left wrist fracture S62.102A
[2024-04-07] MEDS: ketorolac 30 mg/mL INJ 15 MG IVP (22:50)
[2024-04-07] MEDS: enoxaparin 40 mg/0.4 mL Syringe SUBCUT (22:50)
[2024-04-08] VITALS (11 sets, daily range): BP systolic 94–145; BP diastolic 50–72; PULSE 71–84; RESP 14–18; TEMP 36.4–37.1; O2SAT 91–97
[2024-04-08 05:36] LABS: Basophils % 0.3 %; Eosinophils # 0.1 10^3/uL (0.0-0.8); Eosinophils % 1.5 %; Hematocrit 25.1 % (37-53); Lymphocytes # 1.1 10^3/uL (0.8-4.8); Lymphocytes % 17.3 %; Mean Corpuscular HGB Conc 33.9 g/dL (30-55); Mean Corpuscular Hemoglobin 30.8 pg (27-33); Mean Corpuscular Volume 90.9 fl (82-101); Mean Platelet Volume 8.8 fL (7.4-10.4); Monocytes # 0.8 10^3/uL (0.2-0.9); Monocytes % 11.6 %; Neutrophils # 4.53 10^3/uL (1.8-7.7); Neutrophils % 68.8 %; Nucleated Red Blood Cells % 0 %; Platelet Count 151 10^3/cmm (157-399); Red Blood Count 2.76 10^6/uL (3.85-5.65); Red Cell Distribution Width 12.5 % (12.1-15.1); White Blood Count 6.58 10^3/uL (3.29-11.43)
[2024-04-08] MEDS: oxyCODONE-APAP 5-325 mg Tablet 1 TAB PO (07:51)
[2024-04-08] MEDS: ketorolac 30 mg/mL INJ 15 MG IVP (07:51)
[2024-04-08] MEDS: aspirin 81 mg Chew Tablet PO (07:53)
[2024-04-08] MEDS: sennosides-docusate Tablet 1 TAB PO (07:54)
[2024-04-08] MEDS: tamsulosin 0.4 mg Capsule PO (07:54)
[2024-04-08] MEDS: losartan 50 mg Tablet 100 MG PO (07:54)
[2024-04-08] MEDS: calcium carb-vit d 600mg/400unit 1 Tablet 1 EACH PO (07:54)
[2024-04-08] MEDS: metoprolol tartrate 50 mg Tablet 100 MG PO (07:54)
[2024-04-08] MEDS: OXcarbazepine 300 mg Tablet PO (07:54)
[2024-04-08] MEDS: multivitamin therapeutic Tablet 1 TAB PO (07:55)
[2024-04-08] MEDS: LORazepam 0.5 mg Tablet PO (07:55)
[2024-04-08] MEDS: iron polysaccharide complex 150 mg Capsule PO (07:55)
[2024-04-08] MEDS: hyDRALAzine 10 mg Tablet PO (07:55)
[2024-04-08] MEDS: chlorhexidine gluconate 0.12% Btl 473 mL 30 ML MUCOUS MEM (07:58)
[2024-04-08] MEDS: mupirocin oint 22 gm 1 APPLIC NASAL (07:59)
[2024-04-08] MEDS: budesonide 0.5 mg/2 mL Neb INHALATION (08:51)
[2024-04-08] MEDS: ipratropium-albuterol 3 mL Neb INHALATION (08:51)
--- NOTE | 2024-04-08 09:07 | P.DS_ITS ---
Discharge Providers Date of Admission: 04/04/24 19:22 Date of Discharge: April 08, 2024 Attending Provider at Admission: Watson Mccoy Attending Provider at Discharge: Essence Perez MD Primary Care Provider: ELVIA Mitchell Diagnoses at Discharge Discharge Diagnosis (1) Closed left hip fracture: Status: Acute (2) Left wrist fracture: Status: Acute Reason for Visit Reason for Visit: left wrist/hip pain s/p fall Hospital Course Hospital Course 88-year-old male who present to the hospital after sustaining a fall he was diagnosed with left wrist fracture andIntertrochanteric left hip fracture, patient went for ORIF 04/[address] Manrique, postop complication of anemia required 1 unit PRBC, patient will require opioids along bowel regimen at the time of discharge along DVT prophylaxis. Will use Eliquis 2.5 mg twice a day regimen for 30 days. He is being [facility] to [facility]. Dr. Manrique has recommended nonoperative management of left wrist fracture with a splint Physical Exam Narrative: Awake and alert GCS 15 Currently in supine position Hemodynamically stable Left arm is in splint Urinary Catheter Management: Grewal: Cath Placed During This Visit: yes, but has since been removed by the nurse Reason for Continuing Indwelling Catheter: Decision to DC Catheter Urinary Catheter Date of Insertion: 04/05/24 Urinary Catheter Time of Insertion: 00:45 Date Urinary Catheter Removed: 04/06/24 Time Urinary Catheter Discontinued: 05:51 Discharge Data Studies Completed and Pending Completed Studies During Hospitalization Category Date Time Status XR chest 1V portable [id number] Stat Exams 04/04/24 17:47 Completed XR femur LT min 2V* [id number] Stat Exams 04/04/24 18:53 Completed XR forearm LT 2V [id number] Stat Exams 04/04/24 17:27 Completed XR hip LT 2-3V wo/w pel* [id number] Routine Exams 04/05/24 12:15 Completed XR hip LT 2-3V wo/w pel* [id number] Routine Exams 04/05/24 12:29 Completed XR hip LT 2-3V wo/w pel* [id number] Stat Exams 04/04/24 17:27 Completed XR wrist LT 2V [id number] Routine Exams 04/05/24 12:15 Completed XR wrist LT 2V [id number] Routine Exams 04/05/24 12:28 Completed Pending at discharge Category Date Time Status SARS Covid-2 Antigen Stat Lab 04/08/24 08:34 Ordered Radiology Impressions Forearm X-Ray 04/04/24 17:27 IMPRESSION: Fractures of the distal radius and ulna with moderate dorsal angulation. Chest X-Ray 04/04/24 17:47 IMPRESSION: Sequela of COPD. No acute findings. Femur X-Ray 04/04/24 18:53 IMPRESSION: Intertrochanteric left hip fracture. Wrist X-Ray 04/05/24 12:28 IMPRESSION: Intraoperative imaging during ORIF distal radial fracture. Hip/Pelvis X-Ray 04/05/24 12:29 IMPRESSION: Intraoperative imaging during ORIF LEFT hip. Laboratory Results WBC 6.58 10^3/uL (3.29-11.43) 04/08/24 04:35 RBC 2.76 10^6/uL (3.85-5.65) L 04/08/24 04:35 Hgb 8.50 g/dL (11.27-16.99) L 04/08/24 04:35 Hct 25.1 % (37-53) L 04/08/24 04:35 MCV 90.9 fl (82-101) 04/08/24 04:35 MCH 30.8 pg (27-33) 04/08/24 04:35 MCHC 33.9 g/dL (30-55) 04/08/24 04:35 RDW 12.5 % (12.1-15.1) 04/08/24 04:35 Plt Count 151 10^3/cmm (157-399) L 04/08/24 04:35 MPV 8.8 fL (7.4-10.4) 04/08/24 04:35 Neut % (Auto) 68.8 % 04/08/24 04:35 Lymph % (Auto) 17.3 % 04/08/24 04:35 [place] % (Auto) 11.6 % 04/08/24 04:35 Eos % (Auto) 1.5 % 04/08/24 04:35 Baso % (Auto) 0.3 % 04/08/24 04:35 Neut # (Auto) 4.53 10^3/uL (1.8-7.7) 04/08/24 04:35 Lymph # (Auto) 1.1 10^3/uL (0.8-4.8) 04/08/24 04:35 [place] # (Auto) 0.8 10^3/uL (0.2-0.9) 04/08/24 04:35 Eos # (Auto) 0.1 10^3/uL (0.0-0.8) 04/08/24 04:35 Baso # (Auto) 0.0 10^3/uL (0.0-0.1) 04/08/24 04:35 Nucleated RBC % (auto) 0 % 04/08/24 04:35 Nucleated RBCs # 0.0 /100WBC 04/08/24 04:35 Sodium 134 mmol/L (136-145) L 04/07/24 06:55 Potassium 4.4 mmol/L (3.5-5.1) 04/07/24 06:55 Chloride 97 mmol/L (98-107) L 04/07/24 06:55 Carbon Dioxide 29 mmol/L (22-29) 04/07/24 06:55 Anion Gap 12.4 (5-19) 04/07/24 06:55 BUN 24 mg/dL (8-23) H 04/07/24 06:55 Creatinine 0.8 mg/dL (0.7-1.2) 04/07/24 06:55 GFR Calculation Not Reportable 04/07/24 06:55 Glucose 106 mg/dL (65-115) 04/07/24 06:55 Estimat Average Glucose 97 04/07/24 05:30 Hemoglobin A1c 5.0 % (4.0-6.0) 04/07/24 05:30 Calculated Osmolality 282 mOsm/kg (285-295) L 04/07/24 06:55 Calcium 8.4 mg/dL (8.5-10.5) L 04/07/24 06:55 Total Bilirubin 0.4 mg/dL (0.15-1.2) 04/04/24 20:18 AST 20 U/L (0-40) 04/04/24 20:18 ALT 16 U/L (0-41) 04/04/24 20:18 Alkaline Phosphatase 89 U/L (40-130) 04/04/24 20:18 Total Protein 5.8 g/dL (6.6-8.7) L 04/04/24 20:18 Albumin 3.5 g/dL (3.5-5.2) 04/04/24 20:18 Globulin 2.3 g/dL (1.3-4.6) 04/04/24 20:18 Urine Color Dark yellow (Yellow) A 04/05/24 00:32 Urine Appearance Clear (CLEAR) 04/05/24 00:32 Urine pH 7.0 (5-7) 04/05/24 00:32 Ur Specific [place] 1.021 (1.005-1.030) 04/05/24 00:32 Urine Protein Negative (Negative) 04/05/24 00:32 Urine Glucose (UA) Negative (Normal) 04/05/24 00:32 Urine Ketones Negative (Negative) 04/05/24 00:32 Urine Blood Negative (Negative) 04/05/24 00:32 Urine Nitrate Negative (Negative) 04/05/24 00:32 Urine Bilirubin Negative (Negative) 04/05/24 00:32 Urine Urobilinogen 1.0 mg/dL (Negative) 04/05/24 00:32 Ur Leukocyte Esterase Trace (Negative) A 04/05/24 00:32 Urine RBC 0-2 /hpf (0-2) 04/05/24 00:32 Urine WBC 0-5 /hpf (0-5) 04/05/24 00:32 Ur Squamous Epith Cells 0-5 /hpf (0-5) 04/05/24 00:32 Amorphous Sediment Not Reportable 04/05/24 00:32 Urine Bacteria None seen /hpf (NONE) 04/05/24 00:32 Hyaline Casts 0.40 /lpf 04/05/24 00:32 Blood Type A Positive 04/05/24 08:10 Rho(D) Type Rh positive 04/05/24 08:10 Antibody Screen Negative 04/05/24 08:10 Crossmatch See Detail 04/05/24 08:10 Vitals Last Vital Signs Temp 97.9 F 04/08/24 08:00 Pulse 81 04/08/24 08:00 Resp 18 04/08/24 08:00 BP 145/67 04/08/24 08:00 Pulse Ox 96 04/08/24 08:00 O2 Del Method Room Air 04/08/24 08:00 O2 Flow Rate 2 04/07/24 02:45 Discharge Plan Discharge Patient Disposition: Home Condition: Stable Prescriptions: New oxycodone-acetaminophen 5-325 mg Tablet 1 tab PO Q6H PRN (Reason: Moderate Pain) Qty: 10 0RF sennosides-docusate sodium [Stool Softener-Laxative] 8.6-50 mg Tablet 1 tab PO DAILY Qty: 10 0RF Eliquis 2.5 mg tablet 2.5 mg PO BID Qty: 60 0RF Continued oxcarbazepine 300 mg tablet 300 mg PO BID aspirin 81 mg Tablet,Chewable 81 mg PO QAM ipratropium-albuterol 0.5 mg-3 mg(2.5 mg base)/3 mL solution for nebulization 3 ml inhalation Q4H PRN (Reason: shortness of breath or wheezing) Qty: 90 0RF budesonide-formoterol [Symbicort] 80-4.5 mcg/actuation HFA aerosol inhaler 2 puff inhalation BID Qty: 10.2 0RF latanoprost 0.005 % drops 1 drp ophthalmic (eye) BEDTIME acetaminophen 500 mg Tablet 1,000 mg PO Q6H PRN (Reason: Pain) albuterol sulfate 90 mcg/actuation HFA aerosol inhaler 2 puff INHALATION QID PRN (Reason: Shortness Of Breath) tamsulosin 0.4 mg capsule 0.4 mg PO DAILY Qty: 30 0RF potassium chloride 10 mEq Capsule, Extended Release 10 meq PO DAILY famotidine 20 mg Tablet 20 mg PO DAILY lorazepam 0.5 mg Tablet 0.5 mg PO DAILY lorazepam 0.5 mg Tablet 0.5 mg PO BID PRN (Reason: Anxiety) nitrofurantoin macrocrystal 100 mg Capsule 100 mg PO DAILY Rx Instructions: must administer with a meal/food hydrochlorothiazide 25 mg Tablet 25 mg PO DAILY fluticasone propionate 50 mcg/actuation [place],Suspension 1 spray INTRANASAL DAILY Rx Instructions: administer into each nostril sertraline 50 mg Tablet 50 mg PO DAILY Changed metoprolol tartrate 100 mg tablet 50 mg PO BID Qty: 30 0RF losartan 100 mg tablet 25 mg PO DAILY Qty: 30 0RF Discontinued hydralazine 10 mg tablet 10 mg PO DAILY Discharge Orders: Discharge Order (Routine); Ordered 04/08/24 Ordered By: Essence Perez Referrals: Giovanni Vega FNP [Primary Care Provider] - Jerrell Manrique DO [Physician] - 04/23/24 9:15 am Discharge Diet: Regular Discharge Activity: Limit activity as instructed and Use walker/crutches as instructed Patient Instructions: Acute Wound Care (DC), Opioid Safety, Post Anesthesia Care Activity Restrictions/Additional Instructions: Postop Troch Nail Orthopedic discharge instructions: Weightbearing as tolerated to the operative extremity Ice as needed for pain and swelling Encourage knee and hip range of motion as tolerated PT/OT Take pain medication as prescribed Take antinausea medication as needed Supplement with Citracal vitamin D for bone health and healing Take Lovenox (blood thinner) as prescribed for blood clot prevention Take Colace as needed for constipation Leave Silverlon dressings on and in place for 7 days. After this they may be removed you may shower/rinse incisions with warm soapy water, pat dry redress with a dry dressing. Okay to sponge bath/shower with Silverlon dressings as they should be waterproof however if they do get saturated or wet please take these off dry the incision and redressed with a new dry sterile bandage. Follow-up in the orthopedic office with Dr. Manrique in 2 weeks for repeat x-rays and incision check/staple removal Contact the office for any questions or concerns (i.e. increasing redness and drainage around the incision, fevers, or chills, or severe worsening in pain/change in symptoms) Postop Distal Radius Orthopedic discharge instructions: Patient should be nonweightbearing to the operative extremity Keep splint on clean dry and intact Elevate arm above elbow and ice as needed for pain and swelling Encourage elbow and finger range of motion Take pain medication as prescribed Take antinausea medication as needed Supplement with Citracal vitamin D for bone health and healing Follow-up with Dr. Manrique in the office in 2 weeks Contact the office for any questions or concerns? Discharge Attestations Time Spent in Discharge Care*: greater than 30 min Quality Metrics Clinical Quality Measures [ No reported AMI, CVA or VTE this stay] Coding Level of Care Code Acute Code for Chg Fwd Diagnoses Closed left hip fracture S72.002A Left wrist fracture S62.102A
[2024-04-08 10:21] LABS: SARS Covid-2 Antigen negative (Negative)
--- NOTE | 2024-04-08 10:56 | PC.NURSE ---
Attempted to call report to [facility] twice at 1057am. Sent to [employer] both times.
--- NOTE | 2024-04-08 11:11 | PC.NURSE ---
Called report to Maira at [facility] at 11:11am.
--- NOTE | 2024-04-08 12:39 | P.PN_ITS ---
Vitals/I&O/Wt Last Vital Signs Temp 97.5 F L 04/08/24 11:49 Pulse 80 04/08/24 11:49 Resp 15 04/08/24 11:49 BP 94/50 04/08/24 11:49 Pulse Ox 91 04/08/24 11:49 O2 Del Method Room Air 04/08/24 08:00 O2 Flow Rate 2 04/07/24 02:45 04/07/24 04/08/24 04/08/24 22:59 06:59 14:59 Intake Total 700 / 820 300 / 1120 240 / 240 Output Total 100 / 200 Balance 600 / 620 300 / 920 240 / 240 Weight last 48 hrs Weight 132 lb Weight 139 lb 1 oz Physical Exam 2 Urinary Catheter Management: Grewal: Cath Placed During This Visit: yes, but has since been removed by the nurse Reason for Continuing Indwelling Catheter: Decision to DC Catheter Urinary Catheter Date of Insertion: 04/05/24 Urinary Catheter Time of Insertion: 00:45 Date Urinary Catheter Removed: 04/06/24 Time Urinary Catheter Discontinued: 05:51 Data 04/08/24 04:35 04/07/24 06:55 Coding Level of Care Code Acute Code for Chg Fwd
--- NOTE | 2024-04-08 13:02 | PC.NURSE ---
Patient was helped into the wheelchair for [facility] personnel to take to the SNF. Belongings packed into a bag and sent with patient.
--- NOTE | 2024-04-10 06:00 | P.CONIM_ITS ---
Providers/Reason For Consult 2 Attending Physician: Essence Perez MD Primary Care Provider: ELVIA Mitchell History of Present Illness History of Present Illness Alessandro Duran is a 88 year old male Medications/Allergies Home Medications Medication Instructions Recorded Confirmed Last Taken Type aspirin 81 mg chewable tablet 81 mg PO QAM 11/29/19 04/09/24 04/08/24 History oxcarbazepine 300 mg tablet 300 mg PO BID 11/29/19 04/09/24 04/08/24 07:55 History budesonide-formoterol HFA 80 2 puff inhalation BID #10.2 grams 03/17/23 04/09/24 04/04/24 Rx mcg-4.5 mcg/actuation aerosol inhaler (Symbicort) ipratropium 0.5 mg-albuterol 3 mg 3 ml inhalation Q4H PRN shortness 03/17/23 04/09/24 04/04/24 Rx (2.5 mg base)/3 mL nebulization of breath or wheezing #90 mL soln acetaminophen 500 mg tablet 1,000 mg PO Q6H PRN Pain 03/18/23 04/09/24 04/04/24 History albuterol sulfate 90 mcg/actuation 2 puff inhalation QID PRN 03/18/23 04/09/24 04/04/24 History aerosol inhaler Shortness Of Breath latanoprost 0.005 % eye drops 1 drp ophthalmic (eye) BEDTIME 03/18/23 04/09/24 04/04/24 History tamsulosin 0.4 mg capsule 0.4 mg PO DAILY #30 caps 03/21/23 04/09/24 04/08/24 07:54 Rx fluticasone propionate 50 1 spray intranasal DAILY 04/05/24 04/09/24 04/04/24 History mcg/actuation nasal spray,suspension hydrochlorothiazide 25 mg tablet 25 mg PO DAILY 04/05/24 04/09/24 04/04/24 History lorazepam 0.5 mg tablet 0.5 mg PO BID PRN Anxiety 04/05/24 04/09/24 04/07/24 22:50 History lorazepam 0.5 mg tablet 0.5 mg PO DAILY 04/05/24 04/09/24 04/08/24 07:55 History nitrofurantoin macrocrystal 100 mg 100 mg PO DAILY 04/05/24 04/09/24 04/04/24 History capsule potassium chloride 10 mEq 10 meq PO DAILY 04/05/24 04/09/24 04/04/24 History capsule,extended release sertraline 50 mg tablet 50 mg PO DAILY 04/05/24 04/09/24 04/04/24 History clonazepam 0.5 mg tablet 0.25 mg (1/2 x 0.5 mg) PO BID PRN 04/08/24 04/09/24 Unknown Rx arm tremor #20 tabs losartan 100 mg tablet 25 mg (1/4 x 100 mg) PO DAILY #30 04/08/24 04/09/24 04/08/24 07:55 Rx tabs metoprolol tartrate 100 mg tablet 50 mg (1/2 x 100 mg) PO BID #30 04/08/24 04/09/24 04/08/24 07:55 Rx tabs oxycodone-acetaminophen 5 mg-325 1 tab PO Q6H PRN Moderate Pain #10 04/08/24 04/09/24 04/08/24 07:50 Rx mg tablet tabs sennosides 8.6 mg-docusate sodium 1 tab PO DAILY #10 tabs 04/08/24 04/09/24 Unknown Rx 50 mg tablet (Stool Softener-Laxative) apixaban 5 mg (74 tabs) tablets in See Rx Instructions PO .COMPLEX 04/09/24 Unknown Rx a dose pack (Eliquis DVT-PE Treat #74 ea 30D Start) pantoprazole 40 mg tablet,delayed 40 mg PO BID #60 tabs 04/09/24 Unknown Rx release Allergies Allergy/AdvReac Type Severity Reaction Status Date / Time amoxicillin Allergy Unknown Verified 04/04/24 17:29 Penicillins Allergy Unknown Verified 04/04/24 17:29 PFSH Acute 2 PFSH: Medical History Dizziness Frequent falls Left wrist fracture Closed left hip fracture Septic shock UTI (urinary tract infection) COPD exacerbation Acute exacerbation of chronic obstructive airways disease Pulmonary hypertension Diastolic congestive heart failure History of CVA (cerebrovascular accident) Hyperlipidemia Anxiety History of seizure disorder Hypertension History of seizures COPD (chronic obstructive pulmonary disease) Prostate CA Status post radiation Surgical History History of excision of lesion L neck History of cataract surgery History of tonsillectomy Family History Mother , 98, healthy No problems noted. Father CAD (coronary artery disease) Social History Smoking and tobacco/nicotine status: former use of tobacco/nicotine Quit status (tobacco/nicotine): has quit using Year quit tobacco: 20 years ago Second hand smoke exposure: No Alcohol intake: never Substance/Drug Use: never Lives independently: Yes Household members: none Vitals/I&O/Wt Last Vital Signs Temp 97.5 F L 04/08/24 13:04 Pulse 80 04/08/24 13:04 Resp 15 04/08/24 13:04 BP 94/50 04/08/24 13:04 Pulse Ox 91 04/08/24 13:04 O2 Del Method Room Air 04/08/24 08:00 O2 Flow Rate 2 04/07/24 02:45 Physical Exam 2 Urinary Catheter Management: Grewal: Cath Placed During This Visit: yes, but has since been removed by the nurse Reason for Continuing Indwelling Catheter: Decision to DC Catheter Urinary Catheter Date of Insertion: 04/05/24 Urinary Catheter Time of Insertion: 00:45 Date Urinary Catheter Removed: 04/06/24 Time Urinary Catheter Discontinued: 05:51 Data 04/08/24 04:35 04/07/24 06:55 Coding Level of Care Code Acute Code for Chg Fwd
== END 2024-04-08 13:04 | disposition skilled nursing facility (03) | DRG 510 ==
LOC: ER 19:27 → MEDSURG 20:08
PROVIDERS: Physician Assistant; Student in an Organized Health Care Education/Training Program; Admitting Provider Internal Medicine; Emergency Provider Emergency Medicine; PCP Nurse Practitioner; Visit Provider Internal Medicine
PROC: 0PSJ04Z Reposition Left Radius with Internal Fixation Device, Open Approach (ICD-10-PCS; CPT 27245; principal; 2024-04-05 17:10)
PROC: 0PSJ04Z Reposition Left Radius with Internal Fixation Device, Open Approach (ICD-10-PCS; 2024-04-05 17:10)
DX: S52.502A Unspecified fracture of the lower end of left radius, initial encounter for closed fracture (principal); S72.142A Displaced intertrochanteric fracture of left femur, initial encounter for closed fracture; I50.32 Chronic diastolic (congestive) heart failure; S52.602A Unspecified fracture of lower end of left ulna, initial encounter for closed fracture; W18.30XA Fall on same level, unspecified, initial encounter; H91.90 Unspecified hearing loss, unspecified ear; R00.1 Bradycardia, unspecified; J44.9 Chronic obstructive pulmonary disease, unspecified; I27.20 Pulmonary hypertension, unspecified; I11.0 Hypertensive heart disease with heart failure; E78.5 Hyperlipidemia, unspecified; F41.9 Anxiety disorder, unspecified; D64.9 Anemia, unspecified; R42 Dizziness and giddiness; R29.6 Repeated falls; Z99.81 Dependence on supplemental oxygen; Z79.82 Long term (current) use of aspirin; Z88.1 Allergy status to other antibiotic agents; Z88.0 Allergy status to penicillin; Z87.440 Personal history of urinary (tract) infections; Z86.73 Personal history of transient ischemic attack (TIA), and cerebral infarction without residual deficits; Z85.46 Personal history of malignant neoplasm of prostate; Z92.3 Personal history of irradiation; Z87.891 Personal history of nicotine dependence; Z82.49 Family history of ischemic heart disease and other diseases of the circulatory system
CPT/HCPCS: 29125; 36415; 36430; 51702; 71045; 71275; 73090; 73100; 73502; 73552; 76000; 80048; 80053; 81001; 82607; 82728; 82746; 83036; 83540; 83550; 83605; 83735; 83880; 84443; 84484; 85014; 85018; 85025; 86850; 86900; 86920; 87040; 87426; 93005; 93306; 94640; 96372; 96374; 96375; 97110; 97116; 97161; 97167; 97530; 97535; 99285; C1713 ×2; G0378; J0131; J1100; J1171; J1644; J1650; J1756; J1885; J2270; J2371; J2405; J2704; J2795; J2919; J3010; J3490; J7030; J7613; J7626; P9040

== ENCOUNTER 2024-04-09 03:38 | Observation (INO) | payer MEDICARE, SELFPAY ==
[2024-04-09] VITALS (14 sets, daily range): BP systolic 122–182; BP diastolic 73–109; PULSE 61–107; RESP 14–20; TEMP 36.4–37.1; O2SAT 94–100; BMI 18.8
--- NOTE | 2024-04-09 03:43 | XRR_ITS ---
PROCEDURE INFORMATION: Exam: XR Chest Exam date and time: 04/09/2024 3:58 AM Age: 88 years old Clinical indication: Pain; Chest pressure; Additional info: Shortness of breath TECHNIQUE: Imaging protocol: Radiologic exam of the chest. Views: 1 view. COMPARISON: CR (CHEST, ) 04/04/2024 6:17 PM FINDINGS: Lungs: Hyperinflated lungs. Apical emphysematous change. Apical scarring and nodularity. Pleural spaces: Unremarkable. No pleural effusion. No pneumothorax. Heart/Mediastinum: Unremarkable. No cardiomegaly. Vasculature: Atherosclerotic disease of the aorta. Bones/joints: Unremarkable. XR/XR chest 1V portable [id number] IMPRESSION: No acute cardiopulmonary findings.
--- NOTE | 2024-04-09 03:44 | ED_ITS ---
Documented by User: Jessica Gilman MD 04/09/24 04:39 HPI - Chest Pain 2 General: Chief Complaint: Chest Pain Stated Complaint: SOB, CP Time Seen by Provider: 04/09/24 03:39 History of Present Illness: 88-year-old man who had surgery yesterda y for a broken left radius and a broken left hip. He had plate and screw fixation of the left wrist and I screw in his left trochanter. Apparently he had required some blood after. He was then transferred [place] detention where he woke up tonight feeling short of breath. He is on oxygen as needed in the day and always at night. Requiring 2 to 3 L right now. O2 sats are good on 2 to 3 L. He had some chest tightness 2. He does have some anxiety at times and did seem quite anxious initially. Related Data Home Medications Medication Instructions Recorded Confirmed aspirin 81 mg chewable tablet 81 mg PO QAM 11/29/19 04/05/24 oxcarbazepine 300 mg tablet 300 mg PO BID 11/29/19 04/05/24 acetaminophen 500 mg tablet 1,000 mg PO Q6H PRN Pain 03/18/23 04/05/24 albuterol sulfate 90 mcg/actuation 2 puff inhalation QID PRN 03/18/23 04/05/24 aerosol inhaler Shortness Of Breath latanoprost 0.005 % eye drops 1 drp ophthalmic (eye) BEDTIME 03/18/23 04/05/24 famotidine 20 mg tablet 20 mg PO DAILY 04/05/24 04/05/24 fluticasone propionate 50 1 spray intranasal DAILY 04/05/24 04/05/24 mcg/actuation nasal spray,suspension hydrochlorothiazide 25 mg tablet 25 mg PO DAILY 04/05/24 04/05/24 lorazepam 0.5 mg tablet 0.5 mg PO BID PRN Anxiety 04/05/24 04/05/24 lorazepam 0.5 mg tablet 0.5 mg PO DAILY 04/05/24 04/05/24 nitrofurantoin macrocrystal 100 mg 100 mg PO DAILY 04/05/24 04/05/24 capsule potassium chloride 10 mEq 10 meq PO DAILY 04/05/24 04/05/24 capsule,extended release sertraline 50 mg tablet 50 mg PO DAILY 04/05/24 04/05/24 Previous Rx's Medication Instructions Recorded budesonide-formoterol HFA 80 2 puff inhalation BID #10.2 grams 03/17/23 mcg-4.5 mcg/actuation aerosol inhaler (Symbicort) ipratropium 0.5 mg-albuterol 3 mg 3 ml inhalation Q4H PRN shortness 03/17/23 (2.5 mg base)/3 mL nebulization of breath or wheezing #90 mL soln tamsulosin 0.4 mg capsule 0.4 mg PO DAILY #30 caps 03/21/23 apixaban 2.5 mg tablet (Eliquis) 2.5 mg PO BID #60 tabs 04/08/24 clonazepam 0.5 mg tablet 0.25 mg (1/2 x 0.5 mg) PO BID PRN 04/08/24 arm tremor #20 tabs losartan 100 mg tablet 25 mg (1/4 x 100 mg) PO DAILY #30 04/08/24 tabs metoprolol tartrate 100 mg tablet 50 mg (1/2 x 100 mg) PO BID #30 04/08/24 tabs oxycodone-acetaminophen 5 mg-325 1 tab PO Q6H PRN Moderate Pain #10 04/08/24 mg tablet tabs sennosides 8.6 mg-docusate sodium 1 tab PO DAILY #10 tabs 04/08/24 50 mg tablet (Stool Softener-Laxative) Allergies Allergy/AdvReac Type Severity Reaction Status Date / Time amoxicillin Allergy Unknown Verified 04/04/24 17:29 Penicillins Allergy Unknown Verified 04/04/24 17:29 Review of Systems 2 Narrative: Constitutional symptoms: Negative except as documented in HPI. Skin symptoms: Negative except as documented in HPI. Eye symptoms: Negative except as documented in HPI. ENMT symptoms: Negative except as documented in HPI. Respiratory symptoms: Negative except as documented in HPI. Cardiovascular symptoms: Negative except as documented in HPI. Gastrointestinal symptoms: Negative except as documented in HPI. Genitourinary symptoms: Negative except as documented in HPI. Musculoskeletal symptoms: Negative except as documented in HPI. Neurologic symptoms: Negative except as documented in HPI. Psychiatric symptoms: Negative except as documented in HPI. Endocrine symptoms: Negative except as documented in HPI. PFSH ED 2 PFSH: Medical History Septic shock UTI (urinary tract infection) COPD exacerbation Acute exacerbation of chronic obstructive airways disease Pulmonary hypertension Diastolic congestive heart failure History of CVA (cerebrovascular accident) Hyperlipidemia Anxiety History of seizure disorder Hypertension History of seizures COPD (chronic obstructive pulmonary disease) Prostate CA Status post radiation Surgical History History of excision of lesion L neck History of cataract surgery History of tonsillectomy Family History Mother , 98, healthy No problems noted. Father CAD (coronary artery disease) Social History Smoking and tobacco/nicotine status: former use of tobacco/nicotine Quit status (tobacco/nicotine): has quit using Year quit tobacco: 20 years ago Second hand smoke exposure: No Alcohol intake: never Substance/Drug Use: never Lives independently: Yes Household members: none Physical Exam 2 Narrative: EXAM NARRATIVE: General: Alert, no acute distress. Skin: Warm, dry. Head: Normocephalic, atraumatic. Neck: Supple, trachea midline. Eye: Extraocular movements are intact. Ears, nose, mouth and throat: Oral mucosa moist. Cardiovascular: Regular rate and rhythm, Normal peripheral perfusion. Respiratory: some expiratory wheeze, mild increased wob, breath sounds are equal, Symmetrical chest wall expansion. Gastrointestinal: Soft, Nontender, Non distended, Normal bowel sounds. Musculoskeletal: Normal ROM, no deformity. Neurological: Alert and oriented to person, place, time, and situation, No focal neurological deficit observed. Psychiatric: Cooperative, appropriate mood & affect. Course 2 Vital Signs: Vital signs: Vital Signs Temperature 98.8 F 04/09/24 03:39 Pulse Rate 92 04/09/24 06:31 Respiratory Rate 16 04/09/24 06:31 Blood Pressure 130/81 04/09/24 06:31 Pulse Oximetry 95 04/09/24 06:31 Oxygen Delivery Me thod Nasal Cannula 04/09/24 06:31 Oxygen Flow Rate 2 04/09/24 06:31 MDM - Chest Pain Medical Decision Making Differential diagnosis for patient with shortness of breath includes but is not limited to and based on the above HPI, review of systems and physical exam: Pneumonia. Bronchitis. Asthma or COPD with acute exacerbation. Acute coronary syndrome / [place]. Pulmonary embolism. Anxiety. Congestive heart failure. Viral infections including influenza and Covid-19. Atrial fibrillation. Anxiety. Pleural effusion. Pneumothorax. Orders placed to evaluate differential diagnosis based on the above differential, HPI and physical exam EKG: Time 3:45 AM. Rate 108. Sinus tachycardia, No ST-T changes, no ectopy, normal MS & QRS intervals, This was reviewed and interpreted by myself the ER physician at 3:47 AM Chest x-ray: No acute process. No infiltrate. No pneumothorax. This was reviewed and interpreted by myself the ER physician. Lab Review: Laboratory results were reviewed and interpreted by myself the emergency room physician. No leukocytosis. Hemoglobin is 8.7. I reviewed the patient's medical record. Reexamination: Lab Data 04/09/24 03:46 04/09/24 04:08 Radiology Impressions Chest X-Ray 04/09/24 03:43 IMPRESSION: No acute cardiopulmonary findings. Chest CTA 04/09/24 05:39 IMPRESSION: 1. Anterior left lower lobe subsegmental pulmonary emboli. RV to LV ratio of 1.4. 2. Mixed density nodule in the right lower lobe. ecommend CT Chest at 3-6 months to confirm persistence of the nodule. If unchanged and solid component remains < 6 mm, annual CT Chest should be performed for 5 years. (Reference: Kev) 3. Scattered pleural plaques. Correlate with exposure history. REFERENCES: Yuilethojoshua H, et al. Guidelines for Management of Incidental Pulmonary Nodules Detected on CT Images: From the Fleischner Society 2017. Radiology. 2017;284(1):228-243. ADDENDUM: 04/09/24 0625 ADDENDUM: The above findings and impression were discussed with Dr. Zendejas on 04/09/2024 at 6:24 a.m. Laboratory Results WBC 4.99 10^3/uL (3.29-11.43) 04/09/24 03:46 RBC 2.84 10^6/uL (3.85-5.65) L 04/09/24 03:46 Hgb 8.70 g/dL (11.27-16.99) L 04/09/24 03:46 Hct 25.4 % (37-53) L 04/09/24 03:46 MCV 89.4 fl (82-101) 04/09/24 03:46 MCH 30.6 pg (27-33) 04/09/24 03:46 MCHC 34.3 g/dL (30-55) 04/09/24 03:46 RDW 12.9 % (12.1-15.1) 04/09/24 03:46 Plt Count 193 10^3/cmm (157-399) 04/09/24 03:46 MPV 8.8 fL (7.4-10.4) 04/09/24 03:46 Neut % (Auto) 69.8 % 04/09/24 03:46 Lymph % (Auto) 15.8 % 04/09/24 03:46 [place] % (Auto) 11.4 % 04/09/24 03:46 Eos % (Auto) 1.8 % 04/09/24 03:46 Baso % (Auto) 0.6 % 04/09/24 03:46 Neut # (Auto) 3.48 10^3/uL (1.8-7.7) 04/09/24 03:46 Lymph # (Auto) 0.8 10^3/uL (0.8-4.8) 04/09/24 03:46 [place] # (Auto) 0.6 10^3/uL (0.2-0.9) 04/09/24 03:46 Eos # (Auto) 0.1 10^3/uL (0.0-0.8) 04/09/24 03:46 Baso # (Auto) 0.0 10^3/uL (0.0-0.1) 04/09/24 03:46 Nucleated RBC % (auto) 0 % 04/09/24 03:46 Nucleated RBCs # 0.0 /100WBC 04/09/24 03:46 Sodium 137 mmol/L (136-145) 04/09/24 04:08 Potassium 4.1 mmol/L (3.5-5.1) 04/09/24 04:08 Chloride 99 mmol/L (98-107) 04/09/24 04:08 Carbon Dioxide 29 mmol/L (22-29) 04/09/24 04:08 Anion Gap 13.1 (5-19) 04/09/24 04:08 BUN 33 mg/dL (8-23) H 04/09/24 04:08 Creatinine 0.7 mg/dL (0.7-1.2) 04/09/24 04:08 GFR Calculation Not Reportable 04/09/24 04:08 Glucose 109 mg/dL (65-115) 04/09/24 04:08 Calculated Osmolality 292 mOsm/kg (285-295) 04/09/24 04:08 Lactic Acid 0.7 mmol/L (0.5-2.2) 04/09/24 03:46 Calcium 8.8 mg/dL (8.5-10.5) 04/09/24 04:08 Total Bilirubin 0.6 mg/dL (0.15-1.2) 04/09/24 04:08 AST 29 U/L (0-40) 04/09/24 04:08 ALT 15 U/L (0-41) 04/09/24 04:08 Alkaline Phosphatase 86 U/L (40-130) 04/09/24 04:08 Troponin T Baseline 30 ng/L (0-15) H 04/09/24 03:46 Troponin T 120 Minute 30.05 ng/L (0-15) H 04/09/24 05:40 Delta Troponin T 0.05 ABS# (0-10) 04/09/24 05:40 NT-Pro-B Natriuret Pep 3650 pg/mL (0-450) H 04/09/24 04:08 Total Protein 6.1 g/dL (6.6-8.7) L 04/09/24 04:08 Albumin 3.3 g/dL (3.5-5.2) L 04/09/24 04:08 Globulin 2.8 g/dL (1.3-4.6) 04/09/24 04:08 Discharge Plan Discharge Patient Disposition: Admitted As Inpatient Clinical Impression: Pulmonary embolism Condition: Stable Prescriptions: No Action oxcarbazepine 300 mg tablet 300 mg PO BID aspirin 81 mg Tablet,Chewable 81 mg PO QAM ipratropium-albuterol 0.5 mg-3 mg(2.5 mg base)/3 mL solution for nebulization 3 ml inhalation Q4H PRN (Reason: shortness of breath or wheezing) Qty: 90 0RF budesonide-formoterol [Symbicort] 80-4.5 mcg/actuation HFA aerosol inhaler 2 puff inhalation BID Qty: 10.2 0RF latanoprost 0.005 % drops 1 drp ophthalmic (eye) BEDTIME acetaminophen 500 mg Tablet 1,000 mg PO Q6H PRN (Reason: Pain) albuterol sulfate 90 mcg/actuation HFA aerosol inhaler 2 puff INHALATION QID PRN (Reason: Shortness Of Breath) tamsulosin 0.4 mg capsule 0.4 mg PO DAILY Qty: 30 0RF potassium chloride 10 mEq Capsule, Extended Release 10 meq PO DAILY famotidine 20 mg Tablet 20 mg PO DAILY lorazepam 0.5 mg Tablet 0.5 mg PO DAILY lorazepam 0.5 mg Tablet 0.5 mg PO BID PRN (Reason: Anxiety) nitrofurantoin macrocrystal 100 mg Capsule 100 mg PO DAILY Rx Instructions: must administer with a meal/food hydrochlorothiazide 25 mg Tablet 25 mg PO DAILY fluticasone propionate 50 mcg/actuation Holden,Suspension 1 spray INTRANASAL DAILY Rx Instructions: administer into each nostril sertraline 50 mg Tablet 50 mg PO DAILY sennosides-docusate sodium [Stool Softener-Laxative] 8.6-50 mg Tablet 1 tab PO DAILY Qty: 10 0RF oxycodone-acetaminophen 5-325 mg Tablet 1 tab PO Q6H PRN (Reason: Moderate Pain) Qty: 10 0RF Eliquis 2.5 mg tablet 2.5 mg PO BID Qty: 60 0RF metoprolol tartrate 100 mg tablet 50 mg PO BID Qty: 30 0RF losartan 100 mg tablet 25 mg PO DAILY Qty: 30 0RF clonazepam 0.5 mg tablet 0.25 mg PO BID PRN (Reason: arm tremor) Qty: 20 0RF Referrals: Giovanni Vega, [employer] PROFESS[employer] [Primary Care Provider] - Coding Level of Care Code ED [employer] Supervisor for g Alvarez Documented by User: Weston Zendejas MD 04/09/24 06:45 HPI - Chest Pain 2 General: Chief Complaint: Chest Pain Stated Complaint: SOB, CP Time Seen by Provider: 04/09/24 03:39 Related Data Home Medications Medication Instructions Recorded Confirmed aspirin 81 mg chewable tablet 81 mg PO QAM 11/29/19 04/05/24 oxcarbazepine 300 mg tablet 300 mg PO BID 11/29/19 04/05/24 acetaminophen 500 mg tablet 1,000 mg PO Q6H PRN Pain 03/18/23 04/05/24 albuterol sulfate 90 mcg/actuation 2 puff inhalation QID PRN 03/18/23 04/05/24 aerosol inhaler Shortness Of Breath latanoprost 0.005 % eye drops 1 drp ophthalmic (eye) BEDTIME 03/18/23 04/05/24 famotidine 20 mg tablet 20 mg PO DAILY 04/05/24 04/05/24 fluticasone propionate 50 1 spray intranasal DAILY 04/05/24 04/05/24 mcg/actuation nasal spray,suspension hydrochlorothiazide 25 mg tablet 25 mg PO DAILY 04/05/24 04/05/24 lorazepam 0.5 mg tablet 0.5 mg PO BID PRN Anxiety 04/05/24 04/05/24 lorazepam 0.5 mg tablet 0.5 mg PO DAILY 04/05/24 04/05/24 nitrofurantoin macrocrystal 100 mg 100 mg PO DAILY 04/05/24 04/05/24 capsule potassium chloride 10 mEq 10 meq PO DAILY 04/05/24 04/05/24 capsule,extended release sertraline 50 mg tablet 50 mg PO DAILY 04/05/24 04/05/24 Previous Rx's Medication Instructions Recorded budesonide-formoterol HFA 80 2 puff inhalation BID #10.2 grams 03/17/23 mcg-4.5 mcg/actuation aerosol inhaler (Symbicort) ipratropium 0.5 mg-albuterol 3 mg 3 ml inhalation Q4H PRN shortness 03/17/23 (2.5 mg base)/3 mL nebulization of breath or wheezing #90 mL soln tamsulosin 0.4 mg capsule 0.4 mg PO DAILY #30 caps 03/21/23 apixaban 2.5 mg tablet (Eliquis) 2.5 mg PO BID #60 tabs 04/08/24 clonazepam 0.5 mg tablet 0.25 mg (1/2 x 0.5 mg) PO BID PRN 04/08/24 arm tremor #20 tabs losartan 100 mg tablet 25 mg (1/4 x 100 mg) PO DAILY #30 04/08/24 tabs metoprolol tartrate 100 mg tablet 50 mg (1/2 x 100 mg) PO BID #30 04/08/24 tabs oxycodone-acetaminophen 5 mg-325 1 tab PO Q6H PRN Moderate Pain #10 04/08/24 mg tablet tabs sennosides 8.6 mg-docusate sodium 1 tab PO DAILY #10 tabs 04/08/24 50 mg tablet (Stool Softener-Laxative) Allergies Allergy/AdvReac Type Severity Reaction Status Date / Time amoxicillin Allergy Unknown Verified 04/04/24 17:29 Penicillins Allergy Unknown Verified 04/04/24 17:29 PFSH ED 2 PFSH: Medical History Septic shock UTI (urinary tract infection) COPD exacerbation Acute exacerbation of chronic obstructive airways disease Pulmonary hypertension Diastolic congestive heart failure History of CVA (cerebrovascular accident) Hyperlipidemia Anxiety History of seizure disorder Hypertension History of seizures COPD (chronic obstructive pulmonary disease) Prostate CA Status post radiation Surgical History History of excision of lesion L neck History of cataract surgery History of tonsillectomy Family History Mother , 98, healthy No problems noted. Father CAD (coronary artery disease) Social History Smoking and tobacco/nicotine status: former use of tobacco/nicotine Quit status (tobacco/nicotine): has quit using Year quit tobacco: 20 years ago Second hand smoke exposure: No Alcohol intake: never Substance/Drug Use: never Lives independently: Yes Household members: none Course 2 Vital Signs: Vital signs: Vital Signs Temperature 98.8 F 04/09/24 03:39 Pulse Rate 92 10/18/24 06:31 Respiratory Rate 16 04/09/24 06:31 Blood Pressure 130/81 04/09/24 06:31 Pulse Oximetry 95 04/09/24 06:31 Oxygen Delivery Me thod Nasal Cannula 04/09/24 06:31 Oxygen Flow Rate 2 04/09/24 06:31 MDM - Chest Pain Medical Decision Making Differential diagnosis for patient with shortness of breath includes but is not limited to and based on the above HPI, review of systems and physical exam: Pneumonia. Bronchitis. Asthma or COPD with acute exacerbation. Acute coronary syndrome / [place]. Pulmonary embolism. Anxiety. Congestive heart failure. Viral infections including influenza and Covid-19. Atrial fibrillation. Anxiety. Pleural effusion. Pneumothorax. Orders placed to evaluate differential diagnosis based on the above differential, HPI and physical exam EKG: Time 3:45 AM. Rate 108. Sinus tachycardia, No ST-T changes, no ectopy, normal MS & QRS intervals, This was reviewed and interpreted by myself the ER physician at 3:47 AM Chest x-ray: No acute process. No infiltrate. No pneumothorax. This was reviewed and interpreted by myself the ER physician. Lab Review: Laboratory results were reviewed and interpreted by myself the emergency room physician. No leukocytosis. Hemoglobin is 8.7. I reviewed the patient's medical record. Reexamination: Patient CT did show a pulmonary embolism no signs of heart strain his vitals here been normal spoke to hospitalist will admit at this time Lab Data 04/09/24 03:46 04/09/24 04:08 Radiology Impressions Chest X-Ray 04/09/24 03:43 IMPRESSION: No acute cardiopulmonary findings. Chest CTA 04/09/24 05:39 IMPRESSION: 1. Anterior left lower lobe subsegmental pulmonary emboli. RV to LV ratio of 1.4. 2. Mixed density nodule in the right lower lobe. ecommend CT Chest at 3-6 months to confirm persistence of the nodule. If unchanged and solid component remains < 6 mm, annual CT Chest should be performed for 5 years. (Reference: Kev) 3. Scattered pleural plaques. Correlate with exposure history. REFERENCES: Kev Cobos et al. Guidelines for Management of Incidental Pulmonary Nodules Detected on CT Images: From the Fleischner Society 2017. Radiology. 2017;284(1):228-243. ADDENDUM: 04/09/24624 ADDENDUM: The above findings and impression were discussed with Dr. Zendejas on 04/09/2024 at 6:24 a.m. Laboratory Results WBC 4.99 10^3/uL (3.29-11.43) 04/09/24 03:46 RBC 2.84 10^6/uL (3.85-5.65) L 04/09/24 03:46 Hgb 8.70 g/dL (11.27-16.99) L 04/09/24 03:46 Hct 25.4 % (37-53) L 04/09/24 03:46 MCV 89.4 fl (82-101) 04/09/24 03:46 MCH 30.6 pg (27-33) 04/09/24 03:46 MCHC 34.3 g/dL (30-55) 04/09/24 03:46 RDW 12.9 % (12.1-15.1) 04/09/24 03:46 Plt Count 193 10^3/cmm (157-399) 04/09/24 03:46 MPV 8.8 fL (7.4-10.4) 04/09/24 03:46 Neut % (Auto) 69.8 % 04/09/24 03:46 Lymph % (Auto) 15.8 % 04/09/24 03:46 [place] % (Auto) 11.4 % 04/09/24 03:46 Eos % (Auto) 1.8 % 04/09/24 03:46 Baso % (Auto) 0.6 % 04/09/24 03:46 Neut # (Auto) 3.48 10^3/uL (1.8-7.7) 04/09/24 03:46 Lymph # (Auto) 0.8 10^3/uL (0.8-4.8) 04/09/24 03:46 [place] # (Auto) 0.6 10^3/uL (0.2-0.9) 04/09/24 03:46 Eos # (Auto) 0.1 10^3/uL (0.0-0.8) 04/09/24 03:46 Baso # (Auto) 0.0 10^3/uL (0.0-0.1) 04/09/24 03:46 Nucleated RBC % (auto) 0 % 04/09/24 03:46 Nucleated RBCs # 0.0 /100WBC 04/09/24 03:46 Sodium 137 mmol/L (136-145) 04/09/24 04:08 Potassium 4.1 mmol/L (3.5-5.1) 04/09/24 04:08 Chloride 99 mmol/L (98-107) 04/09/24 04:08 Carbon Dioxide 29 mmol/L (22-29) 04/09/24 04:08 Anion Gap 13.1 (5-19) 04/09/24 04:08 BUN 33 mg/dL (8-23) H 04/09/24 04:08 Creatinine 0.7 mg/dL (0.7-1.2) 04/09/24 04:08 GFR Calculation Not Reportable 04/09/24 04:08 Glucose 109 mg/dL (65-115) 04/09/24 04:08 Calculated Osmolality 292 mOsm/kg (285-295) 04/09/24 04:08 Lactic Acid 0.7 mmol/L (0.5-2.2) 04/09/24 03:46 Calcium 8.8 mg/dL (8.5-10.5) 04/09/24 04:08 Total Bilirubin 0.6 mg/dL (0.15-1.2) 04/09/24 04:08 AST 29 U/L (0-40) 04/09/24 04:08 ALT 15 U/L (0-41) 04/09/24 04:08 Alkaline Phosphatase 86 U/L (40-130) 04/09/24 04:08 Troponin T Baseline 30 ng/L (0-15) H 04/09/24 03:46 Troponin T 120 Minute 30.05 ng/L (0-15) H 04/09/24 05:40 Delta Troponin T 0.05 ABS# (0-10) 04/09/24 05:40 NT-Pro-B Natriuret Pep 3650 pg/mL (0-450) H 04/09/24 04:08 Total Protein 6.1 g/dL (6.6-8.7) L 04/09/24 04:08 Albumin 3.3 g/dL (3.5-5.2) L 04/09/24 04:08 Globulin 2.8 g/dL (1.3-4.6) 04/09/24 04:08 All radiology interpretation(s) finalized by discharge Discharge Plan Discharge Patient Disposition: Admitted As Inpatient Clinical Impression: Pulmonary embolism Condition: Stable Prescriptions: No Action oxcarbazepine 300 mg tablet 300 mg PO BID aspirin 81 mg Tablet,Chewable 81 mg PO QAM ipratropium-albuterol 0.5 mg-3 mg(2.5 mg base)/3 mL solution for nebulization 3 ml inhalation Q4H PRN (Reason: shortness of breath or wheezing) Qty: 90 0RF budesonide-formoterol [Symbicort] 80-4.5 mcg/actuation HFA aerosol inhaler 2 puff inhalation BID Qty: 10.2 0RF latanoprost 0.005 % drops 1 drp ophthalmic (eye) BEDTIME acetaminophen 500 mg Tablet 1,000 mg PO Q6H PRN (Reason: Pain) albuterol sulfate 90 mcg/actuation HFA aerosol inhaler 2 puff INHALATION QID PRN (Reason: Shortness Of Breath) tamsulosin 0.4 mg capsule 0.4 mg PO DAILY Qty: 30 0RF potassium chloride 10 mEq Capsule, Extended Release 10 meq PO DAILY famotidine 20 mg Tablet 20 mg PO DAILY lorazepam 0.5 mg Tablet 0.5 mg PO DAILY lorazepam 0.5 mg Tablet 0.5 mg PO BID PRN (Reason: Anxiety) nitrofurantoin macrocrystal 100 mg Capsule 100 mg PO DAILY Rx Instructions: must administer with a meal/food hydrochlorothiazide 25 mg Tablet 25 mg PO DAILY fluticasone propionate 50 mcg/actuation [place]en,Suspension 1 spray INTRANASAL DAILY Rx Instructions: administer into each nostril sertraline 50 mg Tablet 50 mg PO DAILY sennosides-docusate sodium [Stool Softener-Laxative] 8.6-50 mg Tablet 1 tab PO DAILY Qty: 10 0RF oxycodone-acetaminophen 5-325 mg Tablet 1 tab PO Q6H PRN (Reason: Moderate Pain) Qty: 10 0RF Eliquis 2.5 mg tablet 2.5 mg PO BID Qty: 60 0RF metoprolol tartrate 100 mg tablet 50 mg PO BID Qty: 30 0RF losartan 100 mg tablet 25 mg PO DAILY Qty: 30 0RF clonazepam 0.5 mg tablet 0.25 mg PO BID PRN (Reason: arm tremor) Qty: 20 0RF Referrals: Giovanni Vega FNP [Primary Care Provider] - Coding Level of Care Code ED [employer] Supervisor for Aldair Pino
--- NOTE | 2024-04-09 03:45 | ECG_ITS ---
[facility]: 2024-04-09 Pat Name: Alessandro Duran Department: Room: Gender: Male History Department Chair: : 1935 Requested By: Jessica Quick Order Number: [id number] Reading MD: FLORY GARCIA Measurements Intervals [place] Rate: 108 P: 71 [place]: 207 QRS: -35 QRSD: 90 T: 52 QT: 339 QTc: 455 Interpretive Statements SINUS TACHYCARDIA WITH OCCASIONAL SUPRAVENTRICULAR PREMATURE COMPLEXES LEFT AXIS DEVIATION [QRS AXIS < -30] Compared to ECG 04/04/2024 19:59:06 Left-axis deviation now present Sinus bradycardia no longer present First degree AV block no longer present Left anterior fascicular block no longer present T-wave abnormality no longer present Prolonged QT interval no longer present Electronically Signed On 04-10-2024 18:10:57 CDT by FLORY GARCIA [email or web address]
[2024-04-09 03:51] LABS: Basophils % 0.6 %; Eosinophils # 0.1 10^3/uL (0.0-0.8); Eosinophils % 1.8 %; Hematocrit 25.4 % (37-53); Lymphocytes # 0.8 10^3/uL (0.8-4.8); Lymphocytes % 15.8 %; Mean Corpuscular HGB Conc 34.3 g/dL (30-55); Mean Corpuscular Hemoglobin 30.6 pg (27-33); Mean Corpuscular Volume 89.4 fl (82-101); Mean Platelet Volume 8.8 fL (7.4-10.4); Monocytes # 0.6 10^3/uL (0.2-0.9); Monocytes % 11.4 %; Neutrophils # 3.48 10^3/uL (1.8-7.7); Neutrophils % 69.8 %; Nucleated Red Blood Cells % 0 %; Platelet Count 193 10^3/cmm (157-399); Red Blood Count 2.84 10^6/uL (3.85-5.65); Red Cell Distribution Width 12.9 % (12.1-15.1); White Blood Count 4.99 10^3/uL (3.29-11.43)
[2024-04-09 04:14] LABS: Troponin(5th) Baseline 30 ng/L (0-15)
[2024-04-09 04:17] LABS: Lactic Sepsis W/Reflex 0.7 mmol/L (0.5-2.2)
[2024-04-09] MEDS: methylPREDNISolone sod succ 125 mg/2 mL INJ IVP (04:46)
[2024-04-09] MEDS: albuterol 2.5 mg/3 mL Neb INHALATION (05:05)
[2024-04-09 05:26] LABS: Alanine Aminotransferase 15 U/L (0-41); Albumin Level 3.3 g/dL (3.5-5.2); Alkaline Phosphatase 86 U/L (40-130); Anion Gap 13.1 (5-19); Aspartate Amino Transferase 29 U/L (0-40); Blood Urea Nitrogen 33 mg/dL (8-23); Calcium 8.8 mg/dL (8.5-10.5); Carbon Dioxide 29 mmol/L (22-29); Chloride 99 mmol/L (98-107); Creatinine Clr Calc Pharmacy 48.1941; Globulin 2.8 g/dL (1.3-4.6); Glucose 109 mg/dL (65-115); NT Pro B Type Natriuretic Pept 3650 pg/mL (0-450); Osmolality Calculated 292 mOsm/kg (285-295); Potassium 4.1 mmol/L (3.5-5.1); Sodium 137 mmol/L (136-145); Total Bilirubin 0.6 mg/dL (0.15-1.2); Total Protein 6.1 g/dL (6.6-8.7)
[2024-04-09] MEDS: HYDROcodone-acetaminophen 10-325 mg Tablet 1 TAB PO (05:31)
--- NOTE | 2024-04-09 05:37 | ECG_ITS ---
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: : 1935 Requested By: Jessica Quick Order Number: [id number] Reading MD: FLORY GARCIA Measurements Intervals [place] Rate: 101 P: 82 CT: 186 QRS: -42 QRSD: 87 T: 50 QT: 353 QTc: 459 Interpretive Statements SINUS TACHYCARDIA WITH OCCASIONAL VENTRICULAR PREMATURE COMPLEXES WITH OCCASIONAL SUPRAVENTRICULAR PREMATURE COMPLEXES LEFT AXIS DEVIATION [QRS AXIS < -30] Compared to ECG 04/09/2024 03:45:04 Ventricular premature complex(es) now present Electronically Signed On 04-10-2024 18:15:31 CDT by FLORY GARCIA [email or web address]
--- NOTE | 2024-04-09 05:39 | CTR_ITS ---
PROCEDURE INFORMATION: Exam: CTA Chest With Contrast Exam date and time: 04/09/2024 5:55 AM Age: 88 years old Clinical indication: Shortness of breath; Patient HX: Recent hip surgery; Additional info: Hypoxemia, tachycardia TECHNIQUE: Imaging protocol: Computed tomographic angiography of the chest with contrast. Exam focused on the arteries. 3D rendering (Not supervised by radiologist): MIP and/or 3D reconstructed images were created by the technologist. Radiation optimization: All CT scans at this facility use at least one of these dose optimization techniques: automated exposure control; mA and/or kV adjustment per patient size (includes targeted exams where dose is matched to clinical indication); or iterative reconstruction. Contrast material: OMNIPAQUE 350; Contrast volume: 64 ml; Contrast route: INTRAVENOUS (IV); COMPARISON: CT angio chest PE protcl [id number] 03/19/2023 8:56 PM RADIATION DOSE METRICS: Total DLP (mGy-cm): 217.04 FINDINGS: Pulmonary arteries: There is subsegmental filling defects within the anterior left lower lobe indicative of subsegmental pulmonary emboli. Aorta: Heavy calcified atherosclerotic disease of the visualized aorta. Celiac trunk and mesenteric arteries: Two including large noncalcified wall thrombus at the level of the celiac/SMA origin. Trachea: A few scattered regions terminal airway wall thickening in the bilateral lower lobes. Lungs: Apical emphysema. Apical scarring/nodularity. Mixed density nodule measuring 11 x 8 mm in the right lower lobe (series 6, image 356). Pleural spaces: Few scattered pleural plaques with associated calcifications are noted particularly at the lung apices. Heart: Unremarkable. No cardiomegaly. No pericardial effusion. Heart RV/LV ratio: The RV to LV ratio is 1.4. Coronary arteries: Heavy coronary calcified atherosclerotic disease. Lymph nodes: Unremarkable. No enlarged lymph nodes. Spleen: Splenic granulomas. Bones/joints: Diffuse degenerative change of the visualized osseous structures. Soft tissues: Unremarkable. CT/CT angio chest PE protcl [id number] IMPRESSION: 1. Anterior left lower lobe subsegmental pulmonary emboli. RV to LV ratio of 1.4. 2. Mixed density nodule in the right lower lobe. ecommend CT Chest at 3-6 months to confirm persistence of the nodule. If unchanged and solid component remains < 6 mm, annual CT Chest should be performed for 5 years. (Reference: Kev) 3. Scattered pleural plaques. Correlate with exposure history. REFERENCES: Kev Cobos, et al. Guidelines for Management of Incidental Pulmonary Nodules Detected on CT Images: From the Fleischner Society 2017. Radiology. 2017;284(1):228-243.
[2024-04-09] MEDS: iohexol 350 mg/mL 500 mL Btl (per mL) IV (05:59)
[2024-04-09 06:06] LABS: Troponin 5 2HR 30.05 ng/L (0-15); Troponin 5 2HR Delta 0.05 ABS# (0-10)
[2024-04-09] MEDS: enoxaparin 60 mg/0.6 mL Syringe SUBCUT (07:45)
--- NOTE | 2024-04-09 08:03 | USCV_ITS ---
ReneeAlessandro Age: 88 Gender: M : 1935 Exam Date: 04/09/2024 18:28 Ordering Phys: Aric Briceno MD Technologist: Saul Haque [place] [facility] [place]: PE BP: 120 / 74 HR: 63 Rhythm: Sinus Technical Quality: Adequate MEASUREMENTS (Male / Female) Normal Values 2D ECHO LV Diastolic Diameter PLAX 4.6 cm 4.2 - 5.9 / 3.9 - 5.3 cm IVS Diastolic Thickness 1.0 cm 0.6 - 1.0 / 0.6 - 0.9 cm IVS Systolic Thickness 1.3 cm LVPW Diastolic Thickness 1.8 cm 0.6 - 1.0 / 0.6 - 0.9 cm LVPW Systolic Thickness 1.8 cm LVOT Diameter 2.0 cm LV Ejection Fraction 2D Teich 67.5 % LV Ejection Fraction MOD 4C 65.0 % LV Ejection Fraction MOD 2C 64.8 % LV Ejection Fraction 2C AL 66.6 % LA Diameter 3.1 cm RA Systolic Volume 4C AL 38.6 ml RA Systolic Volume 4C MOD 39.6 ml LA Sys Volume AL 47.6 cm cubed LA Sys Volume Index AL 29.8 cm cubed/m squared Aorta at Sinotubular Diameter 2.4 cm IVC Diameter 1.7 cm M-MODE LA Ao Ratio MM 1.2 AV Cusp Separation MM 2.1 cm DOPPLER AV Peak Velocity 125.7 cm/s LVOT Peak Velocity 138.0 cm/s AV Area Cont Eq vti 2.7 cm squared AV Area Cont Eq pk 3.5 cm squared MV Peak Velocity 95.0 cm/s MV Area PHT 3.2 cm squared Mitral E to A Ratio 0.8 TV Peak Velocity 286.7 cm/s TR Peak Velocity 299.0 cm/s TR Peak Gradient 35.8 mmHg TR Mean Velocity 243.0 cm/s TR Mean Gradient 25.0 mmHg TR Velocity Time Integral 110.2 cm PV Peak Velocity 105.0 cm/s FINDINGS Left Ventricle Normal left ventricular size, systolic function and wall thickness, with no regional wall motion abnormalities. Left ventricular ejection fraction is estimated at 60 %. Grade I/IV diastolic dysfunction (abnormal relaxation filling pattern), normal to mildly elevated filling pressures. Right Ventricle The right ventricle is normal in size and function. Mild pulmonary hypertension, RVSP 35 mmHg. Right Atrium The right atrium is normal in size. Left Atrium The left atrium is normal in size. Mitral Valve Mildly thickened mitral valve. No mitral valve stenosis. Moderate-severe mitral valve regurgitation. Aortic Valve Structurally normal aortic valve without significant sclerosis or stenosis. There is no aortic regurgitation. Tricuspid Valve No tricuspid valve stenosis. Trace tricuspid valve regurgitation. Pulmonic Valve Structurally normal pulmonic valve without significant stenosis. There is no pulmonic regurgitation. Pericardium Normal pericardium without effusion. Aorta Normal ascending aorta dimension. IVC The inferior vena cava appears normal. CONCLUSIONS Normal left ventricular size, systolic function and wall thickness, with no regional wall motion abnormalities. Left ventricular ejection fraction is estimated at 60 %. Grade I/IV diastolic dysfunction (abnormal relaxation filling pattern), normal to mildly elevated filling pressures. The right ventricle is normal in size and function. Mild pulmonary hypertension, RVSP 35 mmHg. Mildly thickened mitral valve. No mitral valve stenosis. Moderate-severe mitral valve regurgitation. There is no pericardial effusion. Right atrial pressure is around 5 mm of mercury. Essence Hernandez MD (Electronically Signed) Final Date: 09 April 2024 20:17 S
--- NOTE | 2024-04-09 08:03 | P.HP_ITS ---
Documented by User: KRISTY Cox STDJEYSON 04/09/24 10:47 Providers/Chief Complaint 2 Admitting Physician: Laci Briceno MD Primary Care Provider: ELVIA Mitchell Chief Complaint: SOB, CP History of Present Illness Alessandro Duran is a 88 year old male with PMH of COPD, HTN, Diastolic CHF, Pulmonary HTN, Hyperlipidemia, Anxiety, Recurrent UTIs, History of seizures, History of CVA, and history of prostate cancer, presents with chest tightness and SOB that began this morning, patient was unable to give a time. Patient reported waking up to the chest tightness and felt anxious, but reports the tightness has improved. Patient is post-op for left wrist fracture ORIF and left hip ORIF with Trochanteric Femur nail completed on 04/05 and resides at [facility]. Patient denies taking Eliquis after discharge and stated he only got shots in his stomach for anticoagulation. Patient is in pain secondary to recent surgeries, but denies abdominal pain, headache, changes in vision. Patient received Lovenox and morphine in ED. Being admitted for PE, confirmed on CTA. Review of Systems 2 General: Reports: 10 or more systems reviewed and unremarkable except in HPI and below Medications/Allergies Home Medications Medication Instructions Recorded Confirmed Last Taken Type aspirin 81 mg chewable tablet 81 mg PO QAM 11/29/19 04/09/24 04/08/24 History oxcarbazepine 300 mg tablet 300 mg PO BID 11/29/19 04/09/24 04/08/24 07:55 History budesonide-formoterol HFA 80 2 puff inhalation BID #10.2 grams 03/17/23 04/09/24 04/04/24 Rx mcg-4.5 mcg/actuation aerosol inhaler (Symbicort) ipratropium 0.5 mg-albuterol 3 mg 3 ml inhalation Q4H PRN shortness 03/17/23 04/09/24 04/04/24 Rx (2.5 mg base)/3 mL nebulization of breath or wheezing #90 mL soln acetaminophen 500 mg tablet 1,000 mg PO Q6H PRN Pain 03/18/23 04/09/24 04/04/24 History albuterol sulfate 90 mcg/actuation 2 puff inhalation QID PRN 03/18/23 04/09/24 04/04/24 History aerosol inhaler Shortness Of Breath latanoprost 0.005 % eye drops 1 drp ophthalmic (eye) BEDTIME 03/18/23 04/09/24 04/04/24 History tamsulosin 0.4 mg capsule 0.4 mg PO DAILY #30 caps 03/21/23 04/09/24 04/08/24 07:54 Rx famotidine 20 mg tablet 20 mg PO DAILY 04/05/24 04/09/24 04/04/24 History fluticasone propionate 50 1 spray intranasal DAILY 04/05/24 04/09/24 04/04/24 History mcg/actuation nasal spray,suspension hydrochlorothiazide 25 mg tablet 25 mg PO DAILY 04/05/24 04/09/24 04/04/24 History lorazepam 0.5 mg tablet 0.5 mg PO BID PRN Anxiety 04/05/24 04/09/24 04/07/24 22:50 History lorazepam 0.5 mg tablet 0.5 mg PO DAILY 04/05/24 04/09/24 04/08/24 07:55 History nitrofurantoin macrocrystal 100 mg 100 mg PO DAILY 04/05/24 04/09/24 04/04/24 History capsule potassium chloride 10 mEq 10 meq PO DAILY 04/05/24 04/09/24 04/04/24 History capsule,extended release sertraline 50 mg tablet 50 mg PO DAILY 04/05/24 04/09/24 04/04/24 History apixaban 2.5 mg tablet (Eliquis) 2.5 mg PO BID #60 tabs 04/08/24 04/09/24 Unknown Rx clonazepam 0.5 mg tablet 0.25 mg (1/2 x 0.5 mg) PO BID PRN 04/08/24 04/09/24 Unknown Rx arm tremor #20 tabs losartan 100 mg tablet 25 mg (1/4 x 100 mg) PO DAILY #30 04/08/24 04/09/24 04/08/24 07:55 Rx tabs metoprolol tartrate 100 mg tablet 50 mg (1/2 x 100 mg) PO BID #30 04/08/24 04/09/24 04/08/24 07:55 Rx tabs oxycodone-acetaminophen 5 mg-325 1 tab PO Q6H PRN Moderate Pain #10 10/17/24 10/18/24 10/17/24 07:50 Rx mg tablet tabs sennosides 8.6 mg-docusate sodium 1 tab PO DAILY #10 tabs 04/08/24 04/09/24 Unknown Rx 50 mg tablet (Stool Softener-Laxative) Allergies Allergy/AdvReac Type Severity Reaction Status Date / Time amoxicillin Allergy Unknown Verified 04/04/24 17:29 Penicillins Allergy Unknown Verified 04/04/24 17:29 PFSH Acute 2 PFSH: Medical History Dizziness Frequent falls Left wrist fracture Closed left hip fracture Septic shock UTI (urinary tract infection) COPD exacerbation Acute exacerbation of chronic obstructive airways disease Pulmonary hypertension Diastolic congestive heart failure History of CVA (cerebrovascular accident) Hyperlipidemia Anxiety History of seizure disorder Hypertension History of seizures COPD (chronic obstructive pulmonary disease) Prostate CA Status post radiation Surgical History History of excision of lesion L neck History of cataract surgery History of tonsillectomy Family History Mother , 98, healthy No problems noted. Father CAD (coronary artery disease) Social History Smoking and tobacco/nicotine status: former use of tobacco/nicotine Quit status (tobacco/nicotine): has quit using Year quit tobacco: 20 years ago Second hand smoke exposure: No Alcohol intake: never Substance/Drug Use: never Lives independently: Yes Household members: none Vitals/I&O/Wt Last Vital Signs Temp 98.8 F 04/09/24 03:39 Pulse 92 04/09/24 06:31 Resp 16 04/09/24 06:31 BP 130/81 04/09/24 06:31 Pulse Ox 95 04/09/24 06:31 O2 Del Method Nasal Cannula 04/09/24 06:31 O2 Flow Rate 2 04/09/24 06:31 Weight last 48 hrs Weight 120 lb Physical Exam 2 Narrative: Frail elderly white male status post left wrist fracture ORIF and left hip ORIF with Trochanteric Femur nail completed on 04/05, hard of hearing HENMT: normocephalic, atraumatic, left eye lid does not open was wide as on the right Eye: PERRL, EOMs intact, anicteric sclera Neck:Supple without thyromegaly and lymphadenopathy Resp: Bilateral breath sounds, clear to auscultation, normal chest wall expansion Cardio: Normal rate and rhythm without murmurs, gallops, or rubs GI: soft, nondistended, nontender with bowel sounds : left inner thigh bruising noted otherwise normal Back/Pelvis: left hip with clean dressing noted without drainage Extremity: no edema or cyanosis. Left arm wrapped in split with dressing. Pill- rolling tremor in right hand. Data 04/09/24 03:46 04/09/24 04:08 Other Labs: Labs showed chronic anemia with Hgb of 8.7, Normal lactic aicd, troponin at baseline was 30 with no significant change at 2 hours, BNP 3650, normal LFTs, albumin 3.3, BUN 33, Cr .7 CXR showed no acute findings, hyperinflated lungs with apical emphysematous changes. CTA shows anterior left lower lobe subsegemental PE, mixed density nodule in RLL, scattered pleural plaques that correlate with exposure history. ECG showed sinus tachycardia with PVCs and Supraventricular premature complexes Recent Echo done on 03/18/24 with limited views reported EF 74%, mild LVH, and mild to moderate diffuse plaques of the descending aorta Micro: Microbiology 04/09/24 04:11 Blood Culture - Preliminary Blood SPECIMEN COLLECTED 04/09/24 04:08 Blood Culture - Preliminary Blood SPECIMEN COLLECTED A&P Assessment and plan (1) Pulmonary embolism: Patient presented with chest tightness and dyspnea status post-op of left hip fracture repair and left wrist fracture repair 04/05/24 Patient was discharged from hospital yesterday to [facility] and was prescribed Eliquis. CXR showed no acute findings, hyperinflated lungs with apical emphysematous changes CTA showed anterior LLL subsegmental PE, nodule in RLL, scattered pleural plaques. Patient was placed on O2 and given lovenox injection in ED Recent Echo done on 03/18/24 with limited views reported EF 74%, mild LVH, and mild to moderate diffuse plaques of descending aorta Give another Lovenox injection [id number], then switch to PO tomorrow Continue aspirin Budesonide DuoNebs Blood culture obtained COVID result 04/08 was negative CBC and CMP tomorrow (2) Status post-operative repair of closed fracture of left hip: Post-op day #4 of left wrist fracture ORIF and left hip ORIF with Trochanteric Femur nail Patient was discharged yesterday with prescription for Eliquis, Patient received lovenox injection in ED, give another q12 hours, then switch to PO tomorrow Continue pain management with oxycodone-APAP 5-324mg q6 PRN, Tylenol PRN Zofran PRN for nausea Continue aspirin Orthopedics informed of admission. (3) Anxiety: Patient with history of anxiety, takes Ativan and Zoloft Patient noted to be anxious in ED Continue Ativan 0.5mg BID PRN and Zoloft 50mg daily (4) Anemia: Patient with labs showing chronic anemia with current Hgb 8.7 Iron studies show low iron, low % sat, normal ferritin and normal TIBC, give Venofer 200mg infusion B12 normal, TSH normal, folate pending (5) Urinary tract infection: Recurrent UTIs, currently on nitrofurantoin 100mg, continue Ordered U/A for baseline Plan Full code Son and daughter are DPOAs Lovenox for DVT PPX History of HTN: continue metoprolol 50mg BID, losartan 25mg History of seizures: continue oxcarbazapine 300mg Protonix for GI PPX, history of stomach issues treated with pepto and famotidine Senna-Docusate for bowel regimen Continue Flomax for urinary issues Coding Level of Care Code 10504 Diagnoses Pulmonary embolism I26.99 Status post-operative repair of closed fracture of left hip Z98.890; Z87.81 Anxiety F41.9 Anemia D64.9 Urinary tract infection N39.0 Time Spent (min) 53 Documented by User: Aric Briceno MD 04/09/24 10:59 Providers/Chief Complaint 2 Admitting Physician: Aric Briceno MD Chief Complaint: SOB, CP History of Present Illness Alessandro Duran is a 88 year old male with PMH of COPD, HTN, Diastolic CHF, Pulmonary HTN, Hyperlipidemia, Anxiety, Recurrent UTIs, History of seizures, History of CVA, and history of prostate cancer, presents with chest tightness and SOB that began this morning, patient was unable to give a time. Patient reported waking up to the chest tightness and felt anxious, but reports the tightness has improved. Patient is post-op for left wrist fracture ORIF and left hip ORIF with Trochanteric Femur nail completed on 04/05 and resides at [facility]. Did receive Eliquis at discharge. Patient is in pain secondary to recent surgeries, but denies abdominal pain, headache, changes in vision. Patient received Lovenox and morphine in ED. Being admitted for PE, confirmed on CTA. Medications/Allergies Home Medications Medication Instructions Recorded Confirmed Last Taken Type aspirin 81 mg chewable tablet 81 mg PO QAM 11/29/19 04/09/24 04/08/24 History oxcarbazepine 300 mg tablet 300 mg PO BID 11/29/19 04/09/24 04/08/24 07:55 History budesonide-formoterol HFA 80 2 puff inhalation BID #10.2 grams 03/17/23 04/09/24 04/04/24 Rx mcg-4.5 mcg/actuation aerosol inhaler (Symbicort) ipratropium 0.5 mg-albuterol 3 mg 3 ml inhalation Q4H PRN shortness 03/17/23 04/09/24 04/04/24 Rx (2.5 mg base)/3 mL nebulization of breath or wheezing #90 mL soln acetaminophen 500 mg tablet 1,000 mg PO Q6H PRN Pain 03/18/23 04/09/24 04/04/24 History albuterol sulfate 90 mcg/actuation 2 puff inhalation QID PRN 03/18/23 04/09/24 04/04/24 History aerosol inhaler Shortness Of Breath latanoprost 0.005 % eye drops 1 drp ophthalmic (eye) BEDTIME 03/18/23 04/09/24 04/04/24 History tamsulosin 0.4 mg capsule 0.4 mg PO DAILY #30 caps 03/21/23 04/09/24 04/08/24 07:54 Rx famotidine 20 mg tablet 20 mg PO DAILY 10/04/09/24 04/04/24 History fluticasone propionate 50 1 spray intranasal DAILY 04/05/24 04/09/24 04/04/24 History mcg/actuation nasal spray,suspension hydrochlorothiazide 25 mg tablet 25 mg PO DAILY 04/05/24 04/09/24 04/04/24 History lorazepam 0.5 mg tablet 0.5 mg PO BID PRN Anxiety 04/05/24 04/09/24 04/07/24 22:50 History lorazepam 0.5 mg tablet 0.5 mg PO DAILY 04/05/24 04/09/24 04/08/24 07:55 History nitrofurantoin macrocrystal 100 mg 100 mg PO DAILY 04/05/24 04/09/24 04/04/24 History capsule potassium chloride 10 mEq 10 meq PO DAILY 04/05/24 04/09/24 04/04/24 History capsule,extended release sertraline 50 mg tablet 50 mg PO DAILY 04/05/24 04/09/24 04/04/24 History apixaban 2.5 mg tablet (Eliquis) 2.5 mg PO BID #60 tabs 04/08/24 04/09/24 Unknown Rx clonazepam 0.5 mg tablet 0.25 mg (1/2 x 0.5 mg) PO BID PRN 04/08/24 04/09/24 Unknown Rx arm tremor #20 tabs losartan 100 mg tablet 25 mg (1/4 x 100 mg) PO DAILY #30 04/08/24 04/09/24 04/08/24 07:55 Rx tabs metoprolol tartrate 100 mg tablet 50 mg (1/2 x 100 mg) PO BID #30 04/08/24 04/09/24 04/08/24 07:55 Rx tabs oxycodone-acetaminophen 5 mg-325 1 tab PO Q6H PRN Moderate Pain #10 04/08/24 04/09/24 04/08/24 07:50 Rx mg tablet tabs sennosides 8.6 mg-docusate sodium 1 tab PO DAILY #10 tabs 04/08/24 04/09/24 Unknown Rx 50 mg tablet (Stool Softener-Laxative) Allergies Allergy/AdvReac Type Severity Reaction Status Date / Time amoxicillin Allergy Unknown Verified 04/04/24 17:29 Penicillins Allergy Unknown Verified 04/04/24 17:29 PFSH Acute 2 PFSH: Medical History Dizziness Frequent falls Left wrist fracture Closed left hip fracture Septic shock UTI (urinary tract infection) COPD exacerbation Acute exacerbation of chronic obstructive airways disease Pulmonary hypertension Diastolic congestive heart failure History of CVA (cerebrovascular accident) Hyperlipidemia Anxiety History of seizure disorder Hypertension History of seizures COPD (chronic obstructive pulmonary disease) Prostate CA Status post radiation Surgical History History of excision of lesion L neck History of cataract surgery History of tonsillectomy Family History Mother , 98, healthy No problems noted. Father CAD (coronary artery disease) Social History Smoking and tobacco/nicotine status: former use of tobacco/nicotine Quit status (tobacco/nicotine): has quit using Year quit tobacco: 20 years ago Second hand smoke exposure: No Alcohol intake: never Substance/Drug Use: never Lives independently: Yes Household members: none Data 04/09/24 03:46 04/09/24 04:08 A&P Assessment and plan (1) Pulmonary embolism: Patient presented with chest tightness and dyspnea status post-op of left hip fracture repair and left wrist fracture repair 04/05/24 Patient was discharged from hospital yesterday to [facility] and was prescribed Eliquis. patient denies taking CXR showed no acute findings, hyperinflated lungs with apical emphysematous changes CTA showed anterior LLL subsegmental PE, nodule in RLL, scattered pleural plaques. Patient was placed on O2 and given lovenox injection in ED Recent Echo done on 03/18/24 with limited views reported EF 74%, mild LVH, and mild to moderate diffuse plaques of descending aorta Give another Lovenox injection [id number], then switch to PO tomorrow Continue aspirin Budesonide DuoNebs Blood culture obtained COVID result 04/08 was negative CBC and CMP tomorrow (2) Status post-operative repair of closed fracture of left hip: Post-op day #4 of left wrist fracture ORIF and left hip ORIF with Trochanteric Femur nail Patient was discharged yesterday with prescription for Eliquis, patient denies taking Patient received lovenox injection in ED, give another q12 hours, then switch to PO tomorrow Continue pain management with oxycodone-APAP 5-324mg q6 PRN, Tylenol PRN Zofran PRN for nausea Continue aspirin Orthopedics informed of admission. (3) Anxiety: (4) Anemia: (5) Urinary tract infection: Attestations 2 Medical Necessity Statement*: Will need greater than 2 midnight stay for evaluation and treatment of acute PE, requiring anticoagulation Diagnoses Pulmonary embolism I26.99 Status post-operative repair of closed fracture of left hip Z98.890; Z87.81 Anxiety F41.9 Anemia D64.9 Urinary tract infection N39.0 Time Spent (min) 53
[2024-04-09 08:52] LABS: Ferritin 228 ng/mL (30-400); Iron 33 ug/dL (59-158); Percent Saturation 15.7 % (20-50); Thyroid Stimulating Hormone 0.82 uIU/mL (0.27-4.20); Total Iron Binding Capacity 210 mcg/dl; Unsaturated Iron Binding 177 ug/dL (112-347); Vitamin B12 424 pg/mL (232-1245)
[2024-04-09] MEDS: morphine 4 mg/mL SDV 1 mL IVP (09:16)
[2024-04-09] MEDS: sertraline 50 mg Tablet PO (09:18)
[2024-04-09] MEDS: sennosides-docusate Tablet 1 TAB PO (09:18)
[2024-04-09] MEDS: tamsulosin 0.4 mg Capsule PO (09:18)
[2024-04-09] MEDS: pantoprazole DR 40 mg Tablet PO ×2 (09:18→17:19)
[2024-04-09] MEDS: LORazepam 0.5 mg Tablet PO ×2 (09:18→17:19)
[2024-04-09] MEDS: metoprolol tartrate 50 mg Tablet PO ×2 (09:18→17:19)
[2024-04-09] MEDS: losartan 50 mg Tablet 25 MG PO (09:18)
[2024-04-09] MEDS: nitrofurantoin SR (BID) 100 mg Capsule PO (09:20)
[2024-04-09] MEDS: OXcarbazepine 300 mg Tablet PO ×2 (09:21→17:19)
--- NOTE | 2024-04-09 09:43 | ECG_ITS ---
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: : 1935 Requested By: Jessica Quick Order Number: [id number] Laquita MD: FLORY GARCIA Measurements Intervals [place] Rate: 88 P: 64 AK: 201 QRS: -34 QRSD: 96 T: 17 QT: 397 QTc: 481 Interpretive Statements SINUS RHYTHM WITH OCCASIONAL SUPRAVENTRICULAR PREMATURE COMPLEXES LEFT AXIS DEVIATION [QRS AXIS < -30] MINIMAL VOLTAGE CRITERIA FOR LVH, CONSIDER NORMAL VARIANT [MEETS CRITERIA IN ONE OF: R(aVL), S(V1), R(V5), R(V5/V6)+S(V1)] Compared to ECG 04/09/2024 05:37:48 Sinus tachycardia no longer present Ventricular premature complex(es) no longer present Electronically Signed On 04-10-2024 18:15:25 CDT by FLORY GARCIA [email or web address]
--- NOTE | 2024-04-09 09:59 | PC.SOCIAL ---
IMM Update pg 2 of IMM updated and reviewed w/ patient. Copy provided and copy signed by patient. Copy signed, dated, and placed in chart.
[2024-04-09 10:36] LABS: Troponin 5 6HR 33.42 ng/L (0-15); Troponin 5 6HR Delta 3.42 ng/L (0-12)
[2024-04-09] MEDS: iron sucrose 200 MG in sodium chloride 0.9% (100 ml) 100 ML 220 MG IV (10:58)
[2024-04-09 11:04] LABS: Folate Level 15.7 ng/mL (4.5-32.2)
[2024-04-09] MEDS: ipratropium-albuterol 3 mL Neb INHALATION ×2 (13:10→20:12)
[2024-04-09] MEDS: enoxaparin 60 mg/0.6 mL Syringe 50 MG SUBCUT (17:18)
[2024-04-09] MEDS: oxyCODONE-APAP 5-325 mg Tablet 1 TAB PO (17:19)
--- NOTE | 2024-04-09 17:36 | PC.NURSE ---
Yellow and dark purple bruising noted to the penis and scrotum. Bruising covers entirety of penis. Assessed with KIRSTIN Rosas. Notified Dr. Briceno via secure messaging.
[2024-04-09] MEDS: budesonide 0.5 mg/2 mL Neb INHALATION (20:12)
[2024-04-10] VITALS: BP 145/79; PULSE 60; RESP 16; TEMP 36.9; O2SAT 100
[2024-04-10] MEDS: ipratropium-albuterol 3 mL Neb INHALATION ×2 (02:39→08:55)
[2024-04-10 02:41] VITALS: PULSE 67; RESP 16; O2SAT 99
[2024-04-10 04:00] VITALS: BP 145/73; PULSE 75; RESP 17; TEMP 36.5; O2SAT 99
[2024-04-10] MEDS: LORazepam 0.5 mg Tablet PO ×2 (04:46→10:32)
--- NOTE | 2024-04-10 04:51 | PM.DCS ---
Discharge Providers Date of Admission: 04/09/24 06:49 Date of Discharge: April 09, 2024 Attending Provider at Admission: Maribel Lambert MD Attending Provider at Discharge: Essence Perez MD Primary Care Provider: ELVIA Mitchell Diagnoses at Discharge Discharge Diagnosis (1) Pulmonary embolism: Status: Acute (2) Status post-operative repair of closed fracture of left hip: Status: Acute (3) Anxiety: Status: Acute (4) Anemia: Status: Acute (5) Urinary tract infection: Status: Acute Reason for Visit Reason for Visit: SOB, CP Hospital Course Hospital Course 88-year-old male who was recently discharged from the hospital a day ago after hip fracture intervention, he was discharged on Eliquis 2.5 mg twice daily presented back with chief complaint of chest pain and shortness of breath, he was diagnosed with PE, he remained hemodynamically stable on this admission we have transitioned him to therapeutic dose of Eliquis 10 mg twice daily for 7 days then 5 mg twice daily. He is requiring 2 L of oxygen. He will be discharged back to the nursing facility. He will resume his opioids along bowel regimen. Please note during previous hospitalization he was given 1 unit PRBC after postoperative anemia. Physical Exam Narrative: Awake and alert GCS 15 Nonfocal neuroexam Discharge Data Studies Completed and Pending Completed Studies During Hospitalization Category Date Time Status CT angio chest PE protcl [id number] Stat Cat Scan 04/09/24 05:39 Completed XR chest 1V portable [id number] Stat Exams 04/09/24 03:43 Completed Pending at discharge Category Date Time Status Blood Culture Stat Lab 04/09/24 04:11 Results Complete Blood Count w/Auto AM LABS Lab 04/10/24 04:00 Ordered Comprehensive Metabolic Panel AM LABS Lab 04/10/24 04:00 Ordered Fecal Occult Blood [Immunochemical Fecal OCB] Routine Lab 04/09/24 08:05 Uncollected Magnesium AM LABS Lab 04/10/24 04:00 Ordered Urinalysis and Microscopic Routine Lab 04/09/24 08:01 Uncollected US echo complete [CV. echo complete* [id number]] Routine Ultrasound 04/09/24 08:03 Ordered Radiology Impressions Chest X-Ray 04/09/24 03:43 IMPRESSION: No acute cardiopulmonary findings. Chest CTA 04/09/24 05:39 IMPRESSION: 1. Anterior left lower lobe subsegmental pulmonary emboli. RV to LV ratio of 1.4. 2. Mixed density nodule in the right lower lobe. ecommend CT Chest at 3-6 months to confirm persistence of the nodule. If unchanged and solid component remains < 6 mm, annual CT Chest should be performed for 5 years. (Reference: Kev) 3. Scattered pleural plaques. Correlate with exposure history. REFERENCES: Kev Cobos, et al. Guidelines for Management of Incidental Pulmonary Nodules Detected on CT Images: From the Fleischner Society 2017. Radiology. 2017;284(1):228-243. ADDENDUM: 04/09/2425 ADDENDUM: The above findings and impression were discussed with Dr. Zendejas on 04/09/2024 at 6:24 a.m. Laboratory Results WBC 4.99 10^3/uL (3.29-11.43) 04/09/24 03:46 RBC 2.84 10^6/uL (3.85-5.65) L 04/09/24 03:46 Hgb 8.70 g/dL (11.27-16.99) L 04/09/24 03:46 Hct 25.4 % (37-53) L 04/09/24 03:46 MCV 89.4 fl (82-101) 04/09/24 03:46 MCH 30.6 pg (27-33) 04/09/24 03:46 MCHC 34.3 g/dL (30-55) 04/09/24 03:46 RDW 12.9 % (12.1-15.1) 04/09/24 03:46 Plt Count 193 10^3/cmm (157-399) 04/09/24 03:46 MPV 8.8 fL (7.4-10.4) 04/09/24 03:46 Neut % (Auto) 69.8 % 04/09/24 03:46 Lymph % (Auto) 15.8 % 04/09/24 03:46 Brantley % (Auto) 11.4 % 04/09/24 03:46 Eos % (Auto) 1.8 % 04/09/24 03:46 Baso % (Auto) 0.6 % 04/09/24 03:46 Neut # (Auto) 3.48 10^3/uL (1.8-7.7) 04/09/24 03:46 Lymph # (Auto) 0.8 10^3/uL (0.8-4.8) 04/09/24 03:46 Brantley # (Auto) 0.6 10^3/uL (0.2-0.9) 04/09/24 03:46 Eos # (Auto) 0.1 10^3/uL (0.0-0.8) 04/09/24 03:46 Baso # (Auto) 0.0 10^3/uL (0.0-0.1) 04/09/24 03:46 Nucleated RBC % (auto) 0 % 04/09/24 03:46 Nucleated RBCs # 0.0 /100WBC 04/09/24 03:46 Sodium 137 mmol/L (136-145) 04/09/24 04:08 Potassium 4.1 mmol/L (3.5-5.1) 04/09/24 04:08 Chloride 99 mmol/L (98-107) 04/09/24 04:08 Carbon Dioxide 29 mmol/L (22-29) 04/09/24 04:08 Anion Gap 13.1 (5-19) 04/09/24 04:08 BUN 33 mg/dL (8-23) H 04/09/24 04:08 Creatinine 0.7 mg/dL (0.7-1.2) 04/09/24 04:08 GFR Calculation Not Reportable 04/09/24 04:08 Glucose 109 mg/dL (65-115) 04/09/24 04:08 Calculated Osmolality 292 mOsm/kg (285-295) 04/09/24 04:08 Lactic Acid 0.7 mmol/L (0.5-2.2) 04/09/24 03:46 Calcium 8.8 mg/dL (8.5-10.5) 04/09/24 04:08 Iron 33 ug/dL (59-158) L 04/09/24 04:08 TIBC 210 mcg/dl 04/09/24 04:08 % Saturation 15.7 % (20-50) L 04/09/24 04:08 Unsat Iron Binding 177 ug/dL (112-347) 04/09/24 04:08 Ferritin 228 ng/mL (30-400) 04/09/24 04:08 Total Bilirubin 0.6 mg/dL (0.15-1.2) 04/09/24 04:08 AST 29 U/L (0-40) 04/09/24 04:08 ALT 15 U/L (0-41) 04/09/24 04:08 Alkaline Phosphatase 86 U/L (40-130) 04/09/24 04:08 Troponin T Baseline 30 ng/L (0-15) H 04/09/24 03:46 Troponin T 120 Minute 30.05 ng/L (0-15) H 04/09/24 05:40 Delta Troponin T 0.05 ABS# (0-10) 04/09/24 05:40 Troponin T Hi Sens 6Hr 33.42 ng/L (0-15) H 04/09/24 09:50 Troponin T Hi Sens 6Hr Delta 3.42 ng/L (0-12) 04/09/24 09:50 NT-Pro-B Natriuret Pep 3650 pg/mL (0-450) H 04/09/24 04:08 Total Protein 6.1 g/dL (6.6-8.7) L 04/09/24 04:08 Albumin 3.3 g/dL (3.5-5.2) L 04/09/24 04:08 Globulin 2.8 g/dL (1.3-4.6) 04/09/24 04:08 Vitamin B12 424 pg/mL (232-1245) 04/09/24 04:08 Folate 15.7 ng/mL (4.5-32.2) 04/09/24 09:50 TSH 0.82 uIU/mL (0.27-4.20) 04/09/24 04:08 Vitals Last Vital Signs Temp 98.0 F 04/09/24 15:14 Pulse 72 04/09/24 15:14 Resp 14 04/09/24 15:14 BP 127/74 04/09/24 15:14 Pulse Ox 98 04/09/24 15:14 O2 Del Method Nasal Cannula 04/09/24 15:14 O2 Flow Rate 2 04/09/24 15:14 Discharge Plan Discharge Patient Disposition: Xfer SNF Condition: Stable Prescriptions: New pantoprazole 40 mg Tablet,Delayed Release (Dr/Ec) 40 mg PO BID Qty: 60 0RF Eliquis DVT-PE Treat 30D Start 5 mg (74 tabs) tablets,dose pack See Rx Instructions .ROUTE .COMPLEX Qty: 74 0RF Rx Instructions: orally per package directions Continued oxcarbazepine 300 mg tablet 300 mg PO BID aspirin 81 mg Tablet,Chewable 81 mg PO QAM ipratropium-albuterol 0.5 mg-3 mg(2.5 mg base)/3 mL solution for nebulization 3 ml inhalation Q4H PRN (Reason: shortness of breath or wheezing) Qty: 90 0RF budesonide-formoterol [Symbicort] 80-4.5 mcg/actuation HFA aerosol inhaler 2 puff inhalation BID Qty: 10.2 0RF latanoprost 0.005 % drops 1 drp ophthalmic (eye) BEDTIME acetaminophen 500 mg Tablet 1,000 mg PO Q6H PRN (Reason: Pain) albuterol sulfate 90 mcg/actuation HFA aerosol inhaler 2 puff INHALATION QID PRN (Reason: Shortness Of Breath) tamsulosin 0.4 mg capsule 0.4 mg PO DAILY Qty: 30 0RF potassium chloride 10 mEq Capsule, Extended Release 10 meq PO DAILY lorazepam 0.5 mg Tablet 0.5 mg PO DAILY lorazepam 0.5 mg Tablet 0.5 mg PO BID PRN (Reason: Anxiety) nitrofurantoin macrocrystal 100 mg Capsule 100 mg PO DAILY Rx Instructions: must administer with a meal/food hydrochlorothiazide 25 mg Tablet 25 mg PO DAILY fluticasone propionate 50 mcg/actuation [place],Suspension 1 spray INTRANASAL DAILY Rx Instructions: administer into each nostril sertraline 50 mg Tablet 50 mg PO DAILY sennosides-docusate sodium [Stool Softener-Laxative] 8.6-50 mg Tablet 1 tab PO DAILY Qty: 10 0RF oxycodone-acetaminophen 5-325 mg Tablet 1 tab PO Q6H PRN (Reason: Moderate Pain) Qty: 10 0RF metoprolol tartrate 100 mg tablet 50 mg PO BID Qty: 30 0RF losartan 100 mg tablet 25 mg PO DAILY Qty: 30 0RF clonazepam 0.5 mg tablet 0.25 mg PO BID PRN (Reason: arm tremor) Qty: 20 0RF Discontinued famotidine 20 mg Tablet 20 mg PO DAILY Eliquis 2.5 mg tablet 2.5 mg PO BID Qty: 60 0RF Discharge Orders: Discharge Order (Routine); Ordered 04/10/24 Ordered By: Essence Perez Referrals: [facility] [Outside] Giovanni Vega FNP [Primary Care Provider] - Patient Instructions: Opioid Safety Activity Restrictions/Additional Instructions: Eliquis 10 mg twice daily for 1 week then 5 mg twice daily Oxygen 2 L per nasal cannula, titrate off for sat greater than or equal to 92% Take all medicine as prescribed Follow-up with nurse practitioner at shelter facility within 3 to 5 days CBC and BMP in 5 days Discharge Attestations Time Spent in Discharge Care*: less than 30 min Quality Metrics Clinical Quality Measures [ No reported AMI, CVA or VTE this stay] Coding Level of Care Code Acute Code for Chg Fwd Diagnoses Pulmonary embolism I26.99 Status post-operative repair of closed fracture of left hip Z98.890; Z87.81 Anxiety F41.9 Anemia D64.9 Urinary tract infection N39.0
[2024-04-10 05:50] LABS: Basophils % 0.5 %; Eosinophils # 0.1 10^3/uL (0.0-0.8); Eosinophils % 1.6 %; Hematocrit 28.9 % (37-53); Lymphocytes % 17.8 %; Mean Corpuscular HGB Conc 31.5 g/dL (30-55); Mean Corpuscular Volume 95.4 fl (82-101); Mean Platelet Volume 8.6 fL (7.4-10.4); Monocytes # 0.6 10^3/uL (0.2-0.9); Neutrophils # 3.82 10^3/uL (1.8-7.7); Neutrophils % 69.6 %; Nucleated Red Blood Cells % 0 %; Platelet Count 212 10^3/cmm (157-399); Red Blood Count 3.03 10^6/uL (3.85-5.65); Red Cell Distribution Width 12.9 % (12.1-15.1)
[2024-04-10 06:16] LABS: Alanine Aminotransferase 16 U/L (0-41); Albumin Level 3.2 g/dL (3.5-5.2); Alkaline Phosphatase 84 U/L (40-130); Anion Gap 11.9 (5-19); Aspartate Amino Transferase 25 U/L (0-40); Blood Urea Nitrogen 31 mg/dL (8-23); Calcium 8.7 mg/dL (8.5-10.5); Carbon Dioxide 28 mmol/L (22-29); Chloride 106 mmol/L (98-107); Globulin 2.7 g/dL (1.3-4.6); Glucose 95 mg/dL (65-115); Magnesium 2.2 mg/dL (1.7-2.3); Osmolality Calculated 300 mOsm/kg (285-295); Potassium 3.9 mmol/L (3.5-5.1); Sodium 142 mmol/L (136-145); Total Bilirubin 0.6 mg/dL (0.15-1.2); Total Protein 5.9 g/dL (6.6-8.7)
--- NOTE | 2024-04-10 06:31 | P.CONIM_ITS ---
Providers/Reason For Consult 2 Consulting Physician/Specialty*: Jerrell Manrique, /orthopedic surgery Reason for Consult*: Status post left distal radius ORIF, left hip trochanteric femur nail Patient's had a readmission due to PE Attending Physician: Essence Perez MD Primary Care Provider: ELVIA Mitchell History of Present Illness History of Present Illness Alessandro Duran is a 88 year old male seen and examined this morning was updated and asked by hospitalist team that patient had been readmitted due to a PE recently and underwent fixation on 04/05/2024 for left hip trochanteric femur nail as well as left distal radius ORIF. Current currently in a sugar-tong splint able to platform walker through this while he continues to rehab. He was just recently discharged on 04/08/2024. Patient been on DVT prophylaxis unfortunately was having some chest pain and shortness of breath and was brought back to the emergency department was found to have a PE and admitted by hospitalist team orthopedics was consulted as he recently had had surgery done and just for follow-up. Patient this morning is awake and alert and able to answer questions and follow commands. Per primary team patient discharging today. Review of Systems 2 General: Reports: 10 or more systems reviewed and unremarkable except in HPI and below Medications/Allergies Home Medications Medication Instructions Recorded Confirmed Last Taken Type aspirin 81 mg chewable tablet 81 mg PO QAM 11/29/19 04/09/24 04/08/24 History oxcarbazepine 300 mg tablet 300 mg PO BID 11/29/19 04/09/24 04/08/24 07:55 History budesonide-formoterol HFA 80 2 puff inhalation BID #10.2 grams 03/17/23 04/09/24 04/04/24 Rx mcg-4.5 mcg/actuation aerosol inhaler (Symbicort) ipratropium 0.5 mg-albuterol 3 mg 3 ml inhalation Q4H PRN shortness 03/17/23 04/09/24 04/04/24 Rx (2.5 mg base)/3 mL nebulization of breath or wheezing #90 mL soln acetaminophen 500 mg tablet 1,000 mg PO Q6H PRN Pain 03/18/23 04/09/24 04/04/24 History albuterol sulfate 90 mcg/actuation 2 puff inhalation QID PRN 03/18/23 04/09/24 04/04/24 History aerosol inhaler Shortness Of Breath latanoprost 0.005 % eye drops 1 drp ophthalmic (eye) BEDTIME 03/18/23 04/09/24 04/04/24 History tamsulosin 0.4 mg capsule 0.4 mg PO DAILY #30 caps 03/21/23 04/09/24 04/08/24 07:54 Rx fluticasone propionate 50 1 spray intranasal DAILY 04/05/24 04/09/24 04/04/24 History mcg/actuation nasal spray,suspension hydrochlorothiazide 25 mg tablet 25 mg PO DAILY 04/05/24 04/09/24 04/04/24 History lorazepam 0.5 mg tablet 0.5 mg PO BID PRN Anxiety 04/05/24 04/09/24 04/07/24 22:50 History lorazepam 0.5 mg tablet 0.5 mg PO DAILY 04/05/24 04/09/24 04/08/24 07:55 History nitrofurantoin macrocrystal 100 mg 100 mg PO DAILY 04/05/24 04/09/24 04/04/24 History capsule potassium chloride 10 mEq 10 meq PO DAILY 04/05/24 04/09/24 04/04/24 History capsule,extended release sertraline 50 mg tablet 50 mg PO DAILY 04/05/24 04/09/24 04/04/24 History clonazepam 0.5 mg tablet 0.25 mg (1/2 x 0.5 mg) PO BID PRN 04/08/24 04/09/24 Unknown Rx arm tremor #20 tabs losartan 100 mg tablet 25 mg (1/4 x 100 mg) PO DAILY #30 04/08/24 04/09/24 04/08/24 07:55 Rx tabs metoprolol tartrate 100 mg tablet 50 mg (1/2 x 100 mg) PO BID #30 04/08/24 04/09/24 04/08/24 07:55 Rx tabs oxycodone-acetaminophen 5 mg-325 1 tab PO Q6H PRN Moderate Pain #10 04/08/24 04/09/24 04/08/24 07:50 Rx mg tablet tabs sennosides 8.6 mg-docusate sodium 1 tab PO DAILY #10 tabs 04/08/24 04/09/24 Unknown Rx 50 mg tablet (Stool Softener-Laxative) apixaban 5 mg (74 tabs) tablets in See Rx Instructions PO .COMPLEX 04/09/24 Unknown Rx a dose pack (Eliquis DVT-PE Treat #74 ea 30D Start) pantoprazole 40 mg tablet,delayed 40 mg PO BID #60 tabs 04/09/24 Unknown Rx release Allergies Allergy/AdvReac Type Severity Reaction Status Date / Time amoxicillin Allergy Unknown Verified 04/04/24 17:29 Penicillins Allergy Unknown Verified 04/04/24 17:29 Current Medications Generic Name Dose Route Start Last Admin Trade Name Freq PRN Reason Stop Dose Admin Albuterol/Ipratropium 3 ml 04/09/24 14:00 04/10/24 02:39 Ipratropium-Albuterol 3 Ml Neb INHALATION 3 ml Q6H.RESP JOSS Administration Budesonide 0.5 mg 04/09/24 20:00 04/09/24 20:12 Budesonide 0.5 Mg/2 Ml Neb INHALATION 0.5 mg BID.RESPIRATORY JOSS Administration Enoxaparin Sodium 50 mg 04/09/24 19:00 04/09/24 17:18 Enoxaparin 60 Mg/0.6 Ml Syringe SUBCUT 50 mg Q12H JOSS Administration Lorazepam 0.5 mg 04/09/24 08:46 04/10/24 04:46 Lorazepam 0.5 Mg Tablet PO 0.5 mg BID PRN Administration Anxiety Lorazepam 0.5 mg 04/09/24 09:00 04/09/24 09:18 Lorazepam 0.5 Mg Tablet PO 0.5 mg DAILY JOSS Administration Losartan Potassium 25 mg 04/09/24 09:00 04/09/24 09:18 Losartan 50 Mg Tablet PO 25 mg DAILY JOSS Administration Metoprolol Tartrate 50 mg 04/09/24 09:00 04/09/24 17:19 Metoprolol Tartrate 50 Mg Tablet PO 50 mg BID JOSS Administration Nitrofurantoin Macrocrystals 100 mg 04/09/24 09:00 04/09/24 09:20 Nitrofurantoin Sr (Bid) 100 Mg Capsule PO 100 mg DAILY JOSS Administration Oxcarbazepine 300 mg 04/09/24 09:00 04/09/24 17:19 Oxcarbazepine 300 Mg Tablet PO 300 mg BID JOSS Administration Oxycodone/Acetaminophen 1 tab 04/09/24 08:46 04/09/24 17:19 Oxycodone-Apap 5-325 Mg Tablet PO 1 tab Q6H PRN Administration Moderate Pain Pantoprazole Sodium 40 mg 04/09/24 09:00 04/09/24 17:[address] 40 Mg Tablet PO 40 mg BID JOSS Administration Senna/Docusate Sodium 1 tab 04/09/24 09:00 04/09/24 09:18 Sennosides-Docusate Tablet PO 1 tab DAILY JOSS Administration Sertraline HCl 50 mg 04/09/24 09:00 04/09/24 09:18 Sertraline 50 Mg Tablet PO 50 mg DAILY JOSS Administration Tamsulosin HCl 0.4 mg 04/09/24 09:00 04/09/24 09:18 Tamsulosin 0.4 Mg Capsule PO 0.4 mg DAILY JOSS Administration PFSH Acute 2 PFSH: Medical History Dizziness Frequent falls Left wrist fracture Closed left hip fracture Septic shock UTI (urinary tract infection) COPD exacerbation Acute exacerbation of chronic obstructive airways disease Pulmonary hypertension Diastolic congestive heart failure History of CVA (cerebrovascular accident) Hyperlipidemia Anxiety History of seizure disorder Hypertension History of seizures COPD (chronic obstructive pulmonary disease) Prostate CA Status post radiation Surgical History History of excision of lesion L neck History of cataract surgery History of tonsillectomy Family History Mother , 98, healthy No problems noted. Father CAD (coronary artery disease) Social History Smoking and tobacco/nicotine status: former use of tobacco/nicotine Quit status (tobacco/nicotine): has quit using Year quit tobacco: 20 years ago Second hand smoke exposure: No Alcohol intake: never Substance/Drug Use: never Lives independently: Yes Household members: none Vitals/I&O/Wt Last Vital Signs Temp 97.7 F 04/10/24 04:00 Pulse 75 04/10/24 04:00 Resp 17 04/10/24 04:00 BP 145/73 04/10/24 04:00 Pulse Ox 99 04/10/24 04:00 O2 Del Method Room Air 04/10/24 04:00 O2 Flow Rate 2 04/10/24 02:41 04/09/24 04/09/24 04/10/24 14:59 22:59 06:59 Intake Total 230 / 230 120 / 350 120 / 470 Balance 230 / 230 120 / 350 120 / 470 Weight last 48 hrs Weight 138 lb 1.6 oz Weight 120 lb Weight 120 lb Physical Exam 2 Const: COMMON NORMALS: no acute distress and alert Resp: COMMON NORMALS: normal respiratory effort and No retractions Cardio: COMMON NORMALS: Peripheral pulses 2+ throughout PERIPHERAL PULSES: Peripheral pulses 2+ throughout Extremity: NARRATIVE EXTREMITY EXAM: Left arm?exam limited due to splint. Fingers are warm and well-perfused. He has sensation of his fingers that are intact. Normal cap refill under 2 seconds. Patient can wiggle fingers as well. Left leg?surgical Dressing is dry and in place. Compartments are soft and compressible. No hematoma seen. Negative log roll test. He is able to dorsiflex and plantarflex foot. Toes are warm and well-perfused with normal cap refill under 2 seconds. Pedal pulse 2+. Neuro: SENSORIUM/ORIENTATION: Yes alert Skin: GENERAL SKIN EXAM: dry skin Urinary Catheter Management: Grewal: Cath Placed During This Visit: yes, but has since been removed by the nurse Reason for Continuing Indwelling Catheter: Decision to DC Catheter Urinary Catheter Date of Insertion: 04/05/24 Urinary Catheter Time of Insertion: 00:45 Date Urinary Catheter Removed: 04/06/24 Time Urinary Catheter Discontinued: 05:51 Data 04/10/24 04:33 04/10/24 04:33 Micro: Microbiology 04/09/24 04:11 Blood Culture - Preliminary Blood NEGATIVE TO DATE 04/09/24 04:08 Blood Culture - Preliminary Blood NEGATIVE TO DATE A&P Assessment and plan (1) Closed left hip fracture: (2) Left wrist fracture: Plan Plan: Patient is 5 day postop left hip fracture ORIF with trochanteric femur nail and left wrist fracture ORIF. -Labs reviewed -Hospitalist hospitalist is primary patient admitted secondary to PE -Anticoagulation per primary -Weightbearing as tolerated on left leg -No weight bearing on left arm (may utilize platform walker to the left forearm with splint on for help with mobilization) -Keep splint on left wrist -Pain control -Physical therapy and Occupational Therapy Stable for discharge from orthopedic standpoint will follow-up in the office in 2 weeks. Patient understands agrees with current plan. All questions answered. Coding Level of Care Code Acute Code for Chg Fwd Diagnoses Closed left hip fracture S72.002A Left wrist fracture S62.102A Time Spent (min) 15
[2024-04-10] MEDS: enoxaparin 60 mg/0.6 mL Syringe 50 MG SUBCUT (06:36)
[2024-04-10] MEDS: aspirin 81 mg Chew Tablet PO (06:36)
--- NOTE | 2024-04-10 07:05 | PC.NURSE ---
Report called to Jessica at [facility]. All questions answered at this time.
--- NOTE | 2024-04-10 07:20 | PC.NURSE ---
Notified by KIRSTIN Molina that [facility] will be here at 0900 to get pt.
[2024-04-10] MEDS: budesonide 0.5 mg/2 mL Neb INHALATION (08:55)
[2024-04-10 08:56] VITALS: PULSE 83; RESP 18; O2SAT 95
[2024-04-10] MEDS: OXcarbazepine 300 mg Tablet PO (10:31)
[2024-04-10] MEDS: losartan 50 mg Tablet 25 MG PO (10:31)
[2024-04-10] MEDS: pantoprazole DR 40 mg Tablet PO (10:31)
[2024-04-10] MEDS: nitrofurantoin SR (BID) 100 mg Capsule PO (10:31)
[2024-04-10] MEDS: metoprolol tartrate 50 mg Tablet PO (10:32)
[2024-04-10] MEDS: sennosides-docusate Tablet 1 TAB PO (10:32)
[2024-04-10] MEDS: sertraline 50 mg Tablet PO (10:32)
[2024-04-10] MEDS: tamsulosin 0.4 mg Capsule PO (10:32)
[2024-04-10 12:09] VITALS: PULSE 83; RESP 18; O2SAT 95
== END 2024-04-10 12:10 | disposition skilled nursing facility (03) ==
LOC: ER 06:45 → MEDSURG 08:23
PROVIDERS: Emergency Medicine; Internal Medicine; Admitting Provider Student in an Organized Health Care Education/Training Program; Emergency Provider Emergency Medicine; PCP Nurse Practitioner; Visit Provider Internal Medicine
DX: I26.99 Other pulmonary embolism without acute cor pulmonale (principal); Z98.890 Other specified postprocedural states; Z87.81 Personal history of (healed) traumatic fracture; F41.9 Anxiety disorder, unspecified; D64.9 Anemia, unspecified; N39.0 Urinary tract infection, site not specified; J44.9 Chronic obstructive pulmonary disease, unspecified; I11.0 Hypertensive heart disease with heart failure; I50.30 Unspecified diastolic (congestive) heart failure; Z87.440 Personal history of urinary (tract) infections; Z86.73 Personal history of transient ischemic attack (TIA), and cerebral infarction without residual deficits; Z85.46 Personal history of malignant neoplasm of prostate; Z79.82 Long term (current) use of aspirin; Z87.891 Personal history of nicotine dependence
CPT/HCPCS: 36415; 71045; 71275; 80053; 82607; 82728; 82746; 83540; 83550; 83605; 83735; 83880; 84443; 84484; 85025; 87040; 93005; 93306; 94640; 96372; 96374; 97110; 97116; 97161; 99285; G0378; J1650; J1756; J2270; J2919; J7613; J7626

== ENCOUNTER → 2024-04-23 09:12 | Outpatient (BNVA) | payer MEDICARE, SELFPAY | PROVIDERS: PCP Nurse Practitioner; Visit Provider Physician Assistant | DX: M25.552 Pain in left hip (principal); M25.532 Pain in left wrist; Z98.890 Other specified postprocedural states; Z87.81 Personal history of (healed) traumatic fracture | CPT/HCPCS: 73110; 73502 ==

== ENCOUNTER 2024-04-23 11:11 | Outpatient (CLI) | payer MEDICARE, SELFPAY | END 2024-04-23 11:12 | disposition home or self-care (01) | LOC: SPT 11:12 | PROVIDERS: PCP Nurse Practitioner; Visit Provider Physician Assistant | DX: Z46.89 Encounter for fitting and adjustment of other specified devices (principal); S62.102S Fracture of unspecified carpal bone, left wrist, sequela; X58.XXXS Exposure to other specified factors, sequela | CPT/HCPCS: 29065; A4565 ==

== ENCOUNTER 2024-04-23 19:27 | Emergency (ER) | payer MEDICARE, SELFPAY ==
[2024-04-23 19:31] VITALS: BP 105/69; PULSE 64; RESP 18; TEMP 36.8; O2SAT 94; BMI 21.1
[2024-04-23 19:52] VITALS: BP 97/72; PULSE 65; RESP 20; O2SAT 92
--- NOTE | 2024-04-23 19:54 | ED_ITS ---
HPI - Extremity Problem General: Chief complaint: Extremity Injury, Upper Stated complaint: SWOLLEN HAND FROM CAST Time Seen by Provider: 04/23/24 19:31 History of Present Illness: 88-year-old gentleman here with left hudson d and arm pain following application of a long-arm cast and orthopedics earlier. He complains of increasing pain, with swelling to his hand and fingers. No fever. No known skin breakdown or bleeding. He is on apixaban. Related Data Home Medications Medication Instructions Recorded Confirmed aspirin 81 mg chewable tablet 81 mg PO QAM 11/29/19 04/23/24 oxcarbazepine 300 mg tablet 300 mg PO BID 11/29/19 04/23/24 acetaminophen 500 mg tablet 1,000 mg PO Q6H PRN Pain 03/18/23 04/23/24 albuterol sulfate 90 mcg/actuation 2 puff inhalation QID PRN 03/18/23 04/23/24 aerosol inhaler Shortness Of Breath latanoprost 0.005 % eye drops 1 drp ophthalmic (eye) BEDTIME 03/18/23 04/23/24 fluticasone propionate 50 1 spray intranasal DAILY 04/05/24 04/23/24 mcg/actuation nasal spray,suspension hydrochlorothiazide 25 mg tablet 25 mg PO DAILY 04/05/24 04/23/24 lorazepam 0.5 mg tablet 0.5 mg PO BID PRN Anxiety 04/05/24 04/23/24 lorazepam 0.5 mg tablet 0.5 mg PO DAILY 04/05/24 04/23/24 nitrofurantoin macrocrystal 100 mg 100 mg PO DAILY 04/05/24 04/23/24 capsule potassium chloride 10 mEq 10 meq PO DAILY 04/05/24 04/23/24 capsule,extended release sertraline 50 mg tablet 50 mg PO DAILY 04/05/24 04/23/24 Previous Rx's Medication Instructions Recorded budesonide-formoterol HFA 80 2 puff inhalation BID #10.2 grams 03/17/23 mcg-4.5 mcg/actuation aerosol inhaler (Symbicort) ipratropium 0.5 mg-albuterol 3 mg 3 ml inhalation Q4H PRN shortness 03/17/23 (2.5 mg base)/3 mL nebulization of breath or wheezing #90 mL soln tamsulosin 0.4 mg capsule 0.4 mg PO DAILY #30 caps 03/21/23 clonazepam 0.5 mg tablet 0.25 mg (1/2 x 0.5 mg) PO BID PRN 04/08/24 arm tremor #20 tabs losartan 100 mg tablet 25 mg (1/4 x 100 mg) PO DAILY #30 04/08/24 tabs metoprolol tartrate 100 mg tablet 50 mg (1/2 x 100 mg) PO BID #30 04/08/24 tabs oxycodone-acetaminophen 5 mg-325 1 tab PO Q6H PRN Moderate Pain #10 04/08/24 mg tablet tabs sennosides 8.6 mg-docusate sodium 1 tab PO DAILY #10 tabs 04/08/24 50 mg tablet (Stool Softener-Laxative) apixaban 5 mg (74 tabs) tablets in See Rx Instructions PO .COMPLEX 04/09/24 a dose pack ([employer] DVT-PE Treat #74 ea 30D Start) pantoprazole 40 mg tablet,delayed 40 mg PO BID #60 tabs 04/09/24 release sling #1 ea 04/23/24 Allergies Allergy/AdvReac Type Severity Reaction Status Date / Time amoxicillin Allergy Unknown Verified 04/23/24 09:54 Penicillins Allergy Unknown Verified 04/23/24 09:54 [facility] ED PFSH: Medical History (Updated 04/23/24 @ 19:57 by Samson Humphries DO) Left wrist fracture Anemia Pulmonary embolism Urinary tract infection Dizziness Frequent falls Closed left hip fracture Septic shock UTI (urinary tract infection) COPD exacerbation Acute exacerbation of chronic obstructive airways disease Pulmonary hypertension Diastolic congestive heart failure History of CVA (cerebrovascular accident) Hyperlipidemia Anxiety History of seizure disorder Hypertension History of seizures COPD (chronic obstructive pulmonary disease) Prostate CA Status post radiation Surgical History (Updated 04/23/24 @ 11:10 by PETE Hart) Status post-operative repair of closed fracture of left hip History of excision of lesion L neck History of cataract surgery History of tonsillectomy Family History Mother , 98, healthy No problems noted. Father CAD (coronary artery disease) Social History Smoking and tobacco/nicotine status: former use of tobacco/nicotine Quit status (tobacco/nicotine): has quit using Year quit tobacco: 20 years ago Second hand smoke exposure: No Alcohol intake: never Substance/Drug Use: never Lives independently: Yes Household members: none Physical Exam Const: COMMON NORMALS: no acute distress and alert GENERAL APPEARANCE: frail appearing; not ill appearing HENMT: COMMON NORMALS: normocephalic and atraumatic HEAD & SCALP: normocephalic and atraumatic Neck/C-Spine: GENERAL: Yes trachea midline Resp: COMMON NORMALS: normal respiratory effort and No use of accessory muscles Cardio: COMMON NORMALS: regular rate and regular rhythm RATE: regular rate RHYTHM: regular rhythm Extremity: NARRATIVE EXTREMITY EXAM: see skin exam. there is swelling to the fingers distally on the left. no other significant swelling or deformity. Neuro: SENSORIUM/ORIENTATION: Yes alert OTHER: sensation normal to the hand. Skin: NARRATIVE SKIN EXAM: incision is approximated. no rednes or significant swelling around the site. no drainage. it appears excellent. No skin breakdown under cast. Course Vital Signs: Vital signs: Vital Signs Temperature 98.2 F 04/23/24 19:31 Pulse Rate 66 04/23/24 23:26 Respiratory Rate 18 04/23/24 23:26 Blood Pressure 152/86 04/23/24 23:26 Pulse Oximetry 94 04/23/24 23:26 Oxygen Delivery Me thod Room Air 04/23/24 21:21 MDM - Extremity (Nontraumatic) Medical Decision Making Pain relieved with relief of pressure from cast. Cast is cut on 2 perpendicular sides, to relieve tightness, then reapplied after skin check with Coban 2 secure the upper extremity fracture. We did have to modify the cast over the base of the thumb as it was significantly tight over this area even after relieving pressure from opening the cast. Secured with coban. he is not able to move the wrist following reapplication of coban, so it should suffice for a couple of days until cast can be reapplied in orthopedics. X-ray looks stable from prior. Follow-up with orthopedics next week for potential cast reapplication as needed. Lab Data Radiology Impressions Forearm X-Ray 04/23/24 20:11 IMPRESSION: 1. Orthopedic plate seen over a distal radial Colles fracture with relatively good alignment. 2. Distal fibular diaphyseal mildly angulated fracture again seen. 3. Cast material about the forearm. All radiology interpretation(s) finalized by discharge Discharge Plan Discharge Patient Disposition: Home Clinical Impression: Problem with fiberglass cast, Left wrist fracture Condition: Stable Prescriptions: No Action (DME) sling See Rx Instructions .Route .MEDSUPPLY Qty: 1 0RF Rx Instructions: As directed oxcarbazepine 300 mg tablet 300 mg PO BID aspirin 81 mg Tablet,Chewable 81 mg PO QAM ipratropium-albuterol 0.5 mg-3 mg(2.5 mg base)/3 mL solution for nebulization 3 ml inhalation Q4H PRN (Reason: shortness of breath or wheezing) Qty: 90 0RF budesonide-formoterol [Symbicort] 80-4.5 mcg/actuation HFA aerosol inhaler 2 puff inhalation BID Qty: 10.2 0RF latanoprost 0.005 % drops 1 drp ophthalmic (eye) BEDTIME acetaminophen 500 mg Tablet 1,000 mg PO Q6H PRN (Reason: Pain) albuterol sulfate 90 mcg/actuation HFA aerosol inhaler 2 puff INHALATION QID PRN (Reason: Shortness Of Breath) tamsulosin 0.4 mg capsule 0.4 mg PO DAILY Qty: 30 0RF potassium chloride 10 mEq Capsule, Extended Release 10 meq PO DAILY lorazepam 0.5 mg Tablet 0.5 mg PO DAILY lorazepam 0.5 mg Tablet 0.5 mg PO BID PRN (Reason: Anxiety) nitrofurantoin macrocrystal 100 mg Capsule 100 mg PO DAILY Rx Instructions: must administer with a meal/food hydrochlorothiazide 25 mg Tablet 25 mg PO DAILY fluticasone propionate 50 mcg/actuation [place],Suspension 1 spray INTRANASAL DAILY Rx Instructions: administer into each nostril sertraline 50 mg Tablet 50 mg PO DAILY sennosides-docusate sodium [Stool Softener-Laxative] 8.6-50 mg Tablet 1 tab PO DAILY Qty: 10 0RF oxycodone-acetaminophen 5-325 mg Tablet 1 tab PO Q6H PRN (Reason: Moderate Pain) Qty: 10 0RF metoprolol tartrate 100 mg tablet 50 mg PO BID Qty: 30 0RF losartan 100 mg tablet 25 mg PO DAILY Qty: 30 0RF clonazepam 0.5 mg tablet 0.25 mg PO BID PRN (Reason: arm tremor) Qty: 20 0RF pantoprazole 40 mg Tablet,Delayed Release (Dr/Ec) 40 mg PO BID Qty: 60 0RF Eliquis DVT-PE Treat 30D Start 5 mg (74 tabs) tablets,dose pack See Rx Instructions .ROUTE .COMPLEX Qty: 74 0RF Rx Instructions: orally per package directions Discharge Orders: Discharge ED (Routine); Ordered 04/23/24 Ordered By: Samson Humphries Referrals: Giovanni Vega FNP [Primary Care Provider] - Prosper Manrique PA [Physician Service Associate] - 1-3 days Patient Instructions: Opioid Safety, Pain Management Activity Restrictions/Additional Instructions: Return for worsening discomfort, despite relief of pressure from cast, development of fever, bleeding, discharge, significant numbness or tingling, any other concerning symptoms. Call orthopedics on Friday morning for a follow-up appointment early next week. Coding Level of Care Code ED Electrical Products Engineer for Aldair Pino
--- NOTE | 2024-04-23 20:11 | XRR_ITS ---
PROCEDURE INFORMATION: Exam: XR Left Forearm Exam date and time: 04/23/2024 8:28 PM Age: 88 years old Clinical indication: Lower or forearm; Left; Prior surgery; Surgery date: 6+ months; Surgery type: Continued lt forearm pain after orif x 2 weeks ago TECHNIQUE: Imaging protocol: Radiologic exam of the left forearm. Views: 2 views. COMPARISON: CR (UP EXM, ) 04/04/2024 6:17 PM FINDINGS: Bones/joints: Orthopedic plate seen over a distal radial Colles fracture with relatively good alignment. Distal fibular diaphyseal mildly angulated fracture again seen. Cast material about the forearm. Soft tissues: Normal. XR/XR forearm LT 2V [id number] IMPRESSION: 1. Orthopedic plate seen over a distal radial Colles fracture with relatively good alignment. 2. Distal fibular diaphyseal mildly angulated fracture again seen. 3. Cast material about the forearm.
[2024-04-23 21:20] VITALS: RESP 20; O2SAT 94
[2024-04-23] MEDS: oxyCODONE-APAP 5-325 mg Tablet 1 TAB PO (21:20)
[2024-04-23 21:21] VITALS: BP 121/75; PULSE 65; RESP 18; O2SAT 94
[2024-04-23 23:26] VITALS: BP 152/86; PULSE 66; RESP 18; O2SAT 94
== END 2024-04-23 23:05 | disposition home or self-care (01) ==
PROVIDERS: Emergency Provider Emergency Medicine; PCP Nurse Practitioner
DX: S62.102A Fracture of unspecified carpal bone, left wrist, initial encounter for closed fracture (principal); X58.XXXA Exposure to other specified factors, initial encounter; Z79.01 Long term (current) use of anticoagulants; Z87.891 Personal history of nicotine dependence; J44.1 Chronic obstructive pulmonary disease with (acute) exacerbation; I11.0 Hypertensive heart disease with heart failure; I50.30 Unspecified diastolic (congestive) heart failure
CPT/HCPCS: 73090; 99283

== ENCOUNTER → 2024-04-26 11:49 | Outpatient (BNVA) | payer MEDICARE, SELFPAY | PROVIDERS: PCP Nurse Practitioner; Visit Provider Student in an Organized Health Care Education/Training Program | DX: Z98.890 Other specified postprocedural states (principal); S62.102D Fracture of unspecified carpal bone, left wrist, subsequent encounter for fracture with routine healing; X58.XXXD Exposure to other specified factors, subsequent encounter | CPT/HCPCS: 73110 ==

== ENCOUNTER → 2024-05-06 08:53 | Outpatient (BNVA) | payer MEDICARE, SELFPAY | PROVIDERS: PCP Nurse Practitioner; Visit Provider Physician Assistant | DX: Z98.890 Other specified postprocedural states (principal); Z87.81 Personal history of (healed) traumatic fracture | CPT/HCPCS: 73110; 99024 ==

== ENCOUNTER → 2024-05-28 08:48 | Outpatient (BNVA) | payer MEDICARE, SELFPAY | PROVIDERS: PCP Nurse Practitioner; Visit Provider Physician Assistant | DX: Z98.890 Other specified postprocedural states; S62.102D Fracture of unspecified carpal bone, left wrist, subsequent encounter for fracture with routine healing; X58.XXXD Exposure to other specified factors, subsequent encounter | CPT/HCPCS: 73110; 73502 ==

== ENCOUNTER 2024-05-28 09:52 | Outpatient (CLI) | payer MEDICARE, SELFPAY | END 2024-05-28 09:53 | disposition home or self-care (01) | LOC: SPT 09:53 | PROVIDERS: PCP Nurse Practitioner; Visit Provider Physician Assistant | DX: Z47.89 Encounter for other orthopedic aftercare (principal); S62.102S Fracture of unspecified carpal bone, left wrist, sequela; X58.XXXS Exposure to other specified factors, sequela | CPT/HCPCS: 99024; L3908 ==

== ENCOUNTER → 2024-06-25 10:17 | Outpatient (BNVA) | payer MEDICARE, SELFPAY | PROVIDERS: PCP Nurse Practitioner; Visit Provider Physician Assistant | DX: Z98.890 Other specified postprocedural states (principal); S62.102D Fracture of unspecified carpal bone, left wrist, subsequent encounter for fracture with routine healing; X58.XXXD Exposure to other specified factors, subsequent encounter | CPT/HCPCS: 73110; 73502; 99213 ==

== ENCOUNTER 2024-07-28 22:07 | Emergency (ER) | payer MEDICARE, MEDICAID, SELFPAY ==
[2024-07-28 22:09] VITALS: BP 128/83; PULSE 97; RESP 18; TEMP 37.2; O2SAT 87; BMI 20.3
--- NOTE | 2024-07-28 22:17 | XRR_ITS ---
PROCEDURE INFORMATION: Exam: XR Chest Exam date and time: 07/28/2024 10:47 PM Age: 88 years old Clinical indication: Cough; Additional info: Cough congestion TECHNIQUE: Imaging protocol: Radiologic exam of the chest. Views: 1 view. COMPARISON: CT angio chest PE protcl [id number] 04/09/2024 5:55 AM FINDINGS: Lungs: Unremarkable. No consolidation. Pleural spaces: Unremarkable. No pleural effusion. No pneumothorax. Heart/Mediastinum: Unremarkable. No cardiomegaly. Bones/joints: Unremarkable. XR/XR chest 1V portable [id number] IMPRESSION: No acute findings.
[2024-07-28 22:47] LABS: Alanine Aminotransferase 18 U/L (0-41); Albumin Level 3.5 g/dL (3.5-5.2); Alkaline Phosphatase 115 U/L (40-130); Aspartate Amino Transferase 25 U/L (0-40); Basophils % 0.2 %; Blood Urea Nitrogen 23 mg/dL (8-23); Calcium 8.6 mg/dL (8.5-10.5); Carbon Dioxide 27 mmol/L (22-29); Chloride 96 mmol/L (98-107); Creatinine Clr Calc Pharmacy 55.9998; Globulin 2.9 g/dL (1.3-4.6); Glucose 128 mg/dL (65-115); Hematocrit 37.3 % (37-53); Lymphocytes # 0.4 10^3/uL (0.8-4.8); Lymphocytes % 8.5 %; Mean Corpuscular Hemoglobin 29.7 pg (27-33); Mean Corpuscular Volume 87.4 fl (82-101); Mean Platelet Volume 9.5 fL (7.4-10.4); Monocytes # 0.3 10^3/uL (0.2-0.9); Monocytes % 7.1 %; Neutrophils # 3.67 10^3/uL (1.8-7.7); Nucleated Red Blood Cells % 0 %; Osmolality Calculated 287 mOsm/kg (285-295); Platelet Count 134 10^3/cmm (157-399); Red Blood Count 4.27 10^6/uL (3.85-5.65); Red Cell Distribution Width 12.5 % (12.1-15.1); Sodium 136 mmol/L (136-145); Total Bilirubin 0.9 mg/dL (0.15-1.2); Total Protein 6.4 g/dL (6.6-8.7); White Blood Count 4.37 10^3/uL (3.29-11.43)
[2024-07-28 22:52] LABS: Bilirubin Urine Negative (Negative); Blood Urine Negative (Negative); Glucose Urine UA Negative (Normal); Ketones Urine Trace (Negative); Leukocyte Esterase Urine Trace (Negative); Nitrate Urine Negative (Negative); Protein Urine 1+ (Negative); Specific Gravity, Urine 1.022 (1.005-1.030); Urine Appearance Clear (CLEAR); Urine Color Dark Yellow (Yellow); pH Urine 6.5 (5-7)
[2024-07-28 22:57] LABS: Add Urine Microscopic? YES; Bacteria Urine None Seen /hpf; Hyaline Casts Urine 2.05 /lpf; RBC Urine 0-2 /hpf (0-2); Squamous Epithelial Cell Urine 0-5 /hpf (0-5); WBC Urine 0-5 /hpf (0-5)
--- NOTE | 2024-07-28 23:02 | W.ED.URI ---
HPI - URI/Sore Throat General: Chief Complaint: Upper Respiratory Infection Stated Complaint: cough Time Seen by Provider: 07/28/24 22:09 History of Present Illness: Patient presents here from [facility] for evaluation from a cough. Patient denies any fever or chills does not appear to be in any great illness or distress. Patient on room air was 87%, we put him back on his 3 L of oxygen he normally wears and he is oxygen increased to 94+ percent. Related Data Home Medications ?Medication ?Instructions ?Recorded ?Confirmed aspirin 81 mg chewable tablet 81 mg PO QAM 11/29/19 06/25/24 oxcarbazepine 300 mg tablet 300 mg PO BID 11/29/19 06/25/24 acetaminophen 500 mg tablet 1,000 mg PO Q6H PRN Pain 03/18/23 06/25/24 albuterol sulfate 90 mcg/actuation 2 puff inhalation QID PRN 03/18/23 06/25/24 aerosol inhaler Shortness Of Breath latanoprost 0.005 % eye drops 1 drp ophthalmic (eye) BEDTIME 03/18/23 06/25/24 fluticasone propionate 50 1 spray intranasal DAILY 04/05/24 06/25/24 mcg/actuation nasal spray,suspension hydrochlorothiazide 25 mg tablet 25 mg PO DAILY 04/05/24 06/25/24 lorazepam 0.5 mg tablet 0.5 mg PO BID PRN Anxiety 04/05/24 06/25/24 lorazepam 0.5 mg tablet 0.5 mg PO DAILY 04/05/24 06/25/24 nitrofurantoin macrocrystal 100 mg 100 mg PO DAILY 04/05/24 06/25/24 capsule potassium chloride 10 mEq 10 meq PO DAILY 04/05/24 06/25/24 capsule,extended release sertraline 50 mg tablet 50 mg PO DAILY 04/05/24 06/25/24 Previous Rx's ?Medication ?Instructions ?Recorded budesonide-formoterol HFA 80 2 puff inhalation BID #10.2 grams 03/17/23 mcg-4.5 mcg/actuation aerosol inhaler (Symbicort) ipratropium 0.5 mg-albuterol 3 mg 3 ml inhalation Q4H PRN shortness 03/17/23 (2.5 mg base)/3 mL nebulization of breath or wheezing #90 mL soln tamsulosin 0.4 mg capsule 0.4 mg PO DAILY #30 caps 03/21/23 clonazepam 0.5 mg tablet 0.25 mg (1/2 x 0.5 mg) PO BID PRN 04/08/24 arm tremor #20 tabs losartan 100 mg tablet 25 mg (1/4 x 100 mg) PO DAILY #30 04/08/24 tabs metoprolol tartrate 100 mg tablet 50 mg (1/2 x 100 mg) PO BID #30 04/08/24 tabs oxycodone-acetaminophen 5 mg-325 1 tab PO Q6H PRN Moderate Pain #10 04/08/24 mg tablet tabs sennosides 8.6 mg-docusate sodium 1 tab PO DAILY #10 tabs 04/08/24 50 mg tablet (Stool Softener-Laxative) apixaban 5 mg (74 tabs) tablets in See Rx Instructions PO .COMPLEX 04/09/24 a dose pack ([employer] DVT-PE Treat #74 ea 30D Start) pantoprazole 40 mg tablet,delayed 40 mg PO BID #60 tabs 04/09/24 release sling #1 ea 04/23/24 left cock up wrist brace #1 ea 05/28/24 oseltamivir 75 mg capsule (Tamiflu) 75 mg PO Q12H 5 days #10 caps 07/28/24 Allergies Allergy/AdvReac Type Severity Reaction Status Date / Time amoxicillin Allergy Unknown Verified 07/28/24 22:17 Penicillins Allergy Unknown Verified 07/28/24 22:17 Review of Systems General: Reports: 10 or more systems reviewed and unremarkable except in HPI and below PFS ED PFSH: Medical History Left wrist fracture Anemia Pulmonary embolism Urinary tract infection Dizziness Frequent falls Closed left hip fracture Septic shock UTI (urinary tract infection) COPD exacerbation Acute exacerbation of chronic obstructive airways disease Pulmonary hypertension Diastolic congestive heart failure History of CVA (cerebrovascular accident) Hyperlipidemia Anxiety History of seizure disorder Hypertension History of seizures COPD (chronic obstructive pulmonary disease) Prostate CA Status post radiation Surgical History Status post-operative repair of closed fracture of left hip History of excision of lesion L neck History of cataract surgery History of tonsillectomy Family History Mother , 98, healthy No problems noted. Father CAD (coronary artery disease) Social History Smoking and tobacco/nicotine status: former use of tobacco/nicotine Quit status (tobacco/nicotine): has quit using Year quit tobacco: 20 years ago Second hand smoke exposure: No Alcohol intake: never Substance/Drug Use: never Lives independently: Yes Household members: none Physical Exam Const: COMMON NORMALS: no acute distress, average body habitus, patient oriented x3, no limitations, healthy appearing, alert and well nourished HENMT: COMMON NORMALS: normocephalic, atraumatic, hearing grossly normal bilaterally, external ears normal and Normal external nose present HEAD & SCALP: normocephalic and atraumatic NOSE: Normal external nose present EXTERNAL EAR: Yes external ears normal Neck/C-Spine: COMMON NORMALS: no JVD Chest: COMMONS NORMALS: normal inspection of the chest and normal palpation of entire chest wall Resp: COMMON NORMALS: normal respiratory effort, No retractions, No use of accessory muscles and clear to auscultation bilaterally AUSCULTATION: clear to auscultation bilaterally Cardio: COMMON NORMALS: no JVD, regular rate, regular rhythm, S1 normal heart sound present, S2 normal heart sound present, No gallops present (Cardio), No clicks present (Cardio), No murmurs present (Cardio) and No rub (Cardio) RATE: regular rate RHYTHM: regular rhythm HEART SOUNDS: S1 normal heart sound present and S2 normal heart sound present GI: COMMON NORMALS: Normal to inspection, nondistended, normoactive bowel sounds present, Soft to palpation, non-tender, No hepatosplenomegaly present and no masses PALPATION: Yes Soft to palpation and Yes No hepatosplenomegaly present Neuro: COMMON NORMALS: patient oriented x3 SENSORIUM/ORIENTATION: Yes alert Course Vital Signs: Vital signs: Vital Signs Temperature 98.9 F 07/28/24 22:09 Pulse Rate 97 07/28/24 22:09 Respiratory Rate 18 07/28/24 22:09 Blood Pressure 128/83 07/28/24 22:09 Pulse Oximetry 87 L 07/28/24 22:09 Oxygen Delivery Me thod Room Air 07/28/24 22:09 MDM - URI/Sore Throat Medical Decision Making Lab work revealed a potassium of 3.0 and influenza A positive otherwise benign. Patient was given Tamiflu and 40 mEq potassium in the ER. Patient be discharged on Tamiflu back to the [facility]. Medical Records I reviewed the patient's medical records. Lab Data I reviewed the patient's lab results. 07/28/24 22:25 07/28/24 22: Radiology Impressions Chest X-Ray 07/28/24 22:17 IMPRESSION: No acute findings. Laboratory Results WBC 4.37 10^3/uL (3.29-11.43) 07/28/24: RBC 4.27 10^6/uL (3.85-5.65) 07/28/24: Hgb 12.70 g/dL (11.27-16.99) 07/28/24: Hct 37.3 % (37-53) 07/28/24: MCV 87.4 fl (82-101) 07/28/24: MCH 29.7 pg (27-33) 07/28/24: MCHC 34.0 g/dL (30-55) 07/28/24: RDW 12.5 % (12.1-15.1) 07/28/24: Plt Count 134 10^3/cmm (157-399) L 07/28/24: MPV 9.5 fL (7.4-10.4) 07/28/24: Neut % (Auto) 84.0 % 07/28/24: Lymph % (Auto) 8.5 % 07/28/24: [place] % (Auto) 7.1 % 07/28/24: Eos % (Auto) 0.0 % 07/28/24: Baso % (Auto) 0.2 % 07/28/24 Neut # (Auto) 3.67 10^3/uL (1.8-7.7) 07/28/24: Lymph # (Auto) 0.4 10^3/uL (0.8-4.8) L 07/28/24: [place] # (Auto) 0.3 10^3/uL (0.2-0.9) 07/28/24 22:25 Eos # (Auto) 0.0 10^3/uL (0.0-0.8) 07/28/24 22:25 Baso # (Auto) 0.0 10^3/uL (0.0-0.1) 07/28/24 22:25 Nucleated RBC % (auto) 0 % 07/28/24 22:25 Nucleated RBCs # 0.0 /100WBC 07/28/24 22:25 Sodium 136 mmol/L (136-145) 07/28/24 22:25 Potassium 3.0 mmol/L (3.5-5.1) L 07/28/24 22:25 Chloride 96 mmol/L (98-107) L 07/28/24 22: Carbon Dioxide 27 mmol/L (22-29) 07/28/24: Anion Gap 16.0 (5-19) 07/28/24 22:25 BUN 23 mg/dL (8-23) 07/28/24 22: Creatinine 0.7 mg/dL (0.7-1.2) 07/28/24 22:25 GFR Calculation Not Reportable 07/28/24 22: Glucose 128 mg/dL (65-115) H 07/28/24 22:25 Calculated Osmolality 287 mOsm/kg (285-295) 07/28/24: Calcium 8.6 mg/dL (8.5-10.5) 07/28/24 22:25 Total Bilirubin 0.9 mg/dL (0.15-1.2) 07/28/24 22:25 AST 25 U/L (0-40) 07/28/24 22:25 ALT 18 U/L (0-41) 07/28/24 22:25 Alkaline Phosphatase 115 U/L (40-130) 07/28/24 22:25 Total Protein 6.4 g/dL (6.6-8.7) L 07/28/24 22:25 Albumin 3.5 g/dL (3.5-5.2) 07/28/24 22:25 Globulin 2.9 g/dL (1.3-4.6) 07/28/24 22:25 Urine Color Dark yellow (Yellow) A 07/28/24 22:42 Urine Appearance Clear (CLEAR) 07/28/24 22:42 Urine pH 6.5 (5-7) 07/28/24 22:42 Ur Specific [place] 1.022 (1.005-1.030) 07/28/24 22:42 Urine Protein 1+ (Negative) A 07/28/24 22:42 Urine Glucose (UA) Negative (Normal) 07/28/24 22:42 Urine Ketones Trace (Negative) 07/28/24 22:42 Urine Blood Negative (Negative) 07/28/24 22:42 Urine Nitrate Negative (Negative) 07/28/24 22:42 Urine Bilirubin Negative (Negative) 07/28/24 22:42 Urine Urobilinogen 1.0 mg/dL (Negative) 07/28/24 22:42 Ur Leukocyte Esterase Trace (Negative) A 07/28/24 22:42 Urine RBC 0-2 /hpf (0-2) 07/28/24 22:42 Urine WBC 0-5 /hpf (0-5) 07/28/24 22:42 Ur Squamous Epith Cells 0-5 /hpf (0-5) 07/28/24 22:42 Amorphous Sediment Not Reportable 07/28/24 22:42 Urine Bacteria None seen /hpf (NONE) 07/28/24 22:42 Hyaline Casts 2.05 /lpf 07/28/24 22:42 Coronavirus (PCR) Negative (Negative) 07/28/24 22:44 Influenza A (PCR) Positive (Negative) 07/28/24 22:44 Influenza Type B (PCR) Negative (Negative) 07/28/24 22:44 RSV (PCR) Negative (Negative) 07/28/24 22:44 All radiology interpretation(s) finalized by discharge Discharge Plan Discharge Patient Disposition: Home Clinical Impression: Influenza A, Acute hypokalemia Condition: Stable Prescriptions: New oseltamivir [Tamiflu] 75 mg capsule 75 mg PO Q12H 5 Days Qty: 10 0RF No Action (DME) left cock up wrist brace See Rx Instructions .Route .MEDSUPPLY Qty: 1 0RF Rx Instructions: As directed (DME) sling See Rx Instructions .Route .MEDSUPPLY Qty: 1 0RF Rx Instructions: As directed oxcarbazepine 300 mg tablet 300 mg PO BID aspirin 81 mg Tablet,Chewable 81 mg PO QAM ipratropium-albuterol 0.5 mg-3 mg(2.5 mg base)/3 mL solution for nebulization 3 ml inhalation Q4H PRN (Reason: shortness of breath or wheezing) Qty: 90 0RF budesonide-formoterol [Symbicort] 80-4.5 mcg/actuation HFA aerosol inhaler 2 puff inhalation BID Qty: 10.2 0RF latanoprost 0.005 % drops 1 drp ophthalmic (eye) BEDTIME acetaminophen 500 mg Tablet 1,000 mg PO Q6H PRN (Reason: Pain) albuterol sulfate 90 mcg/actuation HFA aerosol inhaler 2 puff INHALATION QID PRN (Reason: Shortness Of Breath) tamsulosin 0.4 mg capsule 0.4 mg PO DAILY Qty: 30 0RF potassium chloride 10 mEq Capsule, Extended Release 10 meq PO DAILY lorazepam 0.5 mg Tablet 0.5 mg PO DAILY lorazepam 0.5 mg Tablet 0.5 mg PO BID PRN (Reason: Anxiety) nitrofurantoin macrocrystal 100 mg Capsule 100 mg PO DAILY Rx Instructions: must administer with a meal/food hydrochlorothiazide 25 mg Tablet 25 mg PO DAILY fluticasone propionate 50 mcg/actuation Only,Suspension 1 spray INTRANASAL DAILY Rx Instructions: administer into each nostril sertraline 50 mg Tablet 50 mg PO DAILY sennosides-docusate sodium [Stool Softener-Laxative] 8.6-50 mg Tablet 1 tab PO DAILY Qty: 10 0RF oxycodone-acetaminophen 5-325 mg Tablet 1 tab PO Q6H PRN (Reason: Moderate Pain) Qty: 10 0RF metoprolol tartrate 100 mg tablet 50 mg PO BID Qty: 30 0RF losartan 100 mg tablet 25 mg PO DAILY Qty: 30 0RF clonazepam 0.5 mg tablet 0.25 mg PO BID PRN (Reason: arm tremor) Qty: 20 0RF pantoprazole 40 mg Tablet,Delayed Release (Dr/Ec) 40 mg PO BID Qty: 60 0RF Eliquis DVT-PE Treat 30D Start 5 mg (74 tabs) tablets,dose pack See Rx Instructions .ROUTE .COMPLEX Qty: 74 0RF Rx Instructions: orally per package directions Discharge Orders: Discharge ED (Routine); Ordered 07/28/24 Ordered By: Abhinav Gupta Referrals: Giovanni Vega FNP [Primary Care Provider] - 1 week Patient Instructions: Influenza (DC), Hypokalemia (ED) Activity Restrictions/Additional Instructions: You have been diagnosed with influenza A and hypokalemia. You were given potassium in the ER and Tamiflu. A prescription of Tamiflu has been sent to your pharmacy. Please take it as directed. Please follow-up with your family practice physician within the next 7 days for further evaluation treatment. Print Language: Yakut Coding Level of Care Code ED Car Dispatcher for Aldair Pino
[2024-07-28 23:27] LABS: Covid PCR NEGATIVE (Negative); Influenza A POSITIVE (Negative); Influenza B NEGATIVE (Negative); Respiratory Syncytial Virus Ce NEGATIVE (Negative)
[2024-07-29 00:11] VITALS: BP 115/57; PULSE 87; O2SAT 91
[2024-07-29] MEDS: potassium chloride ER 20 mEq Tablet 40 MEQ PO (00:17)
[2024-07-29] MEDS: oseltamivir phosphate 75 mg Capsule PO (00:21)
--- NOTE | 2024-07-29 00:29 | PC.NURSE ---
After med administration, patient vomited. Dr Gupta was notified and instructed this nurse to re-order Tamiflu.
[2024-07-29] MEDS: ondansetron 4 MG Tablet PO (00:52)
[2024-07-29 01:03] VITALS: BP 140/85; PULSE 90; O2SAT 95
== END 2024-07-29 01:11 | disposition home or self-care (01) ==
PROVIDERS: Emergency Provider Emergency Medicine; PCP Nurse Practitioner
DX: J10.1 Influenza due to other identified influenza virus with other respiratory manifestations (principal); E87.6 Hypokalemia; Z11.52 Encounter for screening for COVID-19; Z79.82 Long term (current) use of aspirin; Z79.01 Long term (current) use of anticoagulants; Z87.891 Personal history of nicotine dependence; J44.9 Chronic obstructive pulmonary disease, unspecified; Z86.73 Personal history of transient ischemic attack (TIA), and cerebral infarction without residual deficits; E78.5 Hyperlipidemia, unspecified; Z85.46 Personal history of malignant neoplasm of prostate
CPT/HCPCS: 36415; 71045; 80053; 81001; 85025; 87637; 99284; Q0162

== ENCOUNTER 2024-07-31 03:58 | Inpatient (IN) | payer MEDICARE, MEDICAID, SELFPAY ==
[2024-07-31] VITALS (20 sets, daily range): BP systolic 84–155; BP diastolic 55–94; PULSE 73–128; RESP 16–30; TEMP 37–38.2; O2SAT 90–96; BMI 22.7; BMI 20.2
--- NOTE | 2024-07-31 04:13 | XRR_ITS ---
PROCEDURE INFORMATION: Exam: XR Chest Exam date and time: 07/31/2024 4:16 AM Age: 88 years old Clinical indication: Shortness of breath; [facility] with hypoxia. Flu a positive. History of copd. ; Additional info: Influenza a hypoxia TECHNIQUE: Imaging protocol: Radiologic exam of the chest. Views: 1 view. COMPARISON: CR (CHEST, ) 07/28/2024 10:47 PM FINDINGS: Lungs: There are coarse interstitial markings. New increased density mid and lower lung saucedo on the left concerning for superimposed infiltrate. Pleural spaces: Unremarkable. No pleural effusion. No pneumothorax. Heart/Mediastinum: There is moderate cardiomegaly with vascular congestion. Bones/joints: Unremarkable. XR/XR chest 1V portable [id number] IMPRESSION: 1. Moderate cardiomegaly with vascular congestion. 2. New increased density mid and lower lung sa[place]o on the left concerning for superimposed infiltrate.
--- NOTE | 2024-07-31 04:14 | ECG_ITS ---
Celotor Test Date: 2024-07-31 Pat Name: Alessandro Duran Department: Room: Gender: Male Banquet Supervisor: : [id number] Requested By: Abhinav Gupta Order Number: [id number] Laquita MD: FLORY GARCIA Measurements Intervals [place] Rate: 140 P: 0 WA: 0 QRS: -32 QRSD: 88 T: 79 QT: 319 QTc: 488 Interpretive Statements ATRIAL FIBRILLATION WITH RAPID VENTRICULAR RESPONSE LEFT AXIS DEVIATION [QRS AXIS < -30] POSSIBLE ANTERIOR MYOCARDIAL INFARCTION , PROBABLY OLD [30 ms Q WAVE IN V3/V4, OR R < 0.2 mV IN V4] Compared to ECG 04/09/2024 10:38:25 Myocardial infarct finding now present Sinus rhythm no longer present Electronically Signed On 08-01-2024 21:00:06 STOCK TRACER by FLORY GARCIA [email or web address]
--- NOTE | 2024-07-31 04:17 | W.ED.SOB ---
Documented by User: Abhinav Gupta DO 07/31/24 04:20 HPI - SOB/Dyspnea General: Chief Complaint: ER Hold Stated Complaint: SOB Time Seen by Provider: 07/31/24 04:16 Source: EMS Mode of arrival: EMS Limitations: altered mental status History of Present Illness: HPI Narrative: Presents to the ER with complaints of worsening shortness of breath. Patient was seen 2 days ago for influenza and started on Tamiflu. At that time he was hypokalemic given potassium. He was alert and oriented x 3, chest x-ray was negative, per the note that day he normally wears 3 L of oxygen at all times however per the nurses note today they said he was on room air satting 70% and cyanotic. That he normally does not wear oxygen. Patient is now alert and oriented x 1, tachycardic with a heart rate of 129 bpm, has a tremor in his right arm. Related Data Home Medications ?Medication ?Instructions ?Recorded ?Confirmed aspirin 81 mg chewable tablet 81 mg PO QAM 11/29/19 07/31/24 oxcarbazepine 300 mg tablet 300 mg PO BID 11/29/19 07/31/24 acetaminophen 500 mg tablet 1,000 mg PO Q6H PRN Pain 03/18/23 07/31/24 albuterol sulfate 90 mcg/actuation 2 puff inhalation QID PRN 03/18/23 07/31/24 aerosol inhaler Shortness Of Breath latanoprost 0.005 % eye drops 1 drp ophthalmic (eye) BEDTIME 03/18/23 07/31/24 fluticasone propionate 50 1 spray intranasal DAILY 04/05/24 07/31/24 mcg/actuation nasal spray,suspension hydrochlorothiazide 25 mg tablet 25 mg PO DAILY 04/05/24 07/31/24 lorazepam 0.5 mg tablet 0.5 mg PO DAILY 04/05/24 07/31/24 nitrofurantoin macrocrystal 100 mg 100 mg PO DAILY 04/05/24 07/31/24 capsule potassium chloride 10 mEq 10 meq PO DAILY 04/05/24 07/31/24 capsule,extended release Lactobacillus rhamnosus GG 10 1 cap PO DAILY 07/31/24 07/31/24 billion cell capsule (Culturelle) apixaban 5 mg tablet (Eliquis) 5 mg PO BID 07/31/24 07/31/24 bisacodyl 10 mg rectal suppository [address] DAILY PRN Constipation 07/31/24 07/31/24 (Dulcolax (bisacodyl)) dextromethorphan-guaifenesin 5 10 ml PO Q4H PRN Cough 07/31/24 07/31/24 mg-100 mg/5 mL oral liquid (Robitussin Cough-Chest Congestion DM) losartan 25 mg tablet 25 mg PO DAILY 07/31/24 07/31/24 magnesium hydroxide 400 mg/5 mL 30 ml PO DAILY PRN Constipation 07/31/24 07/31/24 oral suspension (Milk of Magnesia) menthol 4 % topical gel (Biofreeze 1 applic topical TID PRN Pain 07/31/24 07/31/24 (menthol)) metoprolol tartrate 50 mg tablet 50 mg PO BID 07/31/24 07/31/24 ondansetron HCl 4 mg tablet 4 mg PO Q4H PRN Nausea And Vomiting 07/31/24 07/31/24 sertraline 100 mg tablet 100 mg PO DAILY 07/31/24 07/31/24 sodium phosphates 19 gram-[address] DAILY PRN Constipation 07/31/24 07/31/24 gram/118 mL enema (Fleet Enema) Previous Rx's ?Medication ?Instructions ?Recorded budesonide-formoterol HFA 80 2 puff inhalation BID #10.2 grams 03/17/23 mcg-4.5 mcg/actuation aerosol inhaler (Symbicort) ipratropium 0.5 mg-albuterol 3 mg 3 ml inhalation Q4H PRN shortness 03/17/23 (2.5 mg base)/3 mL nebulization of breath or wheezing #90 mL soln tamsulosin 0.4 mg capsule 0.4 mg PO DAILY #30 caps 03/21/23 clonazepam 0.5 mg tablet 0.25 mg (1/2 x 0.5 mg) PO BID PRN 04/08/24 arm tremor #20 tabs oxycodone-acetaminophen 5 mg-325 1 tab PO Q6H PRN Moderate Pain #10 04/08/24 mg tablet tabs sennosides 8.6 mg-docusate sodium 1 tab PO DAILY #10 tabs 04/08/24 50 mg tablet (Stool Softener-Laxative) pantoprazole 40 mg tablet,delayed 40 mg PO BID #60 tabs 04/09/24 release sling #1 ea 04/23/24 left cock up wrist brace #1 ea 05/28/24 oseltamivir 75 mg capsule (Tamiflu) 75 mg PO Q12H 5 days #10 caps 07/28/24 Allergies Allergy/AdvReac Type Severity Reaction Status Date / Time amoxicillin Allergy Unknown Verified 07/28/24 22:17 Penicillins Allergy Unknown Verified 07/28/24 22:17 Review of Systems General: Reports: ROS unobtainable due to mental status PFSH ED PFSH: Medical History (Updated 07/31/24 @ 11:31 by Simón Lind DO) COPD exacerbation Left wrist fracture Anemia Pulmonary embolism Urinary tract infection Dizziness Frequent falls Closed left hip fracture Septic shock UTI (urinary tract infection) Acute exacerbation of chronic obstructive airways disease Pulmonary hypertension Diastolic congestive heart failure History of CVA (cerebrovascular accident) Hyperlipidemia Anxiety History of seizure disorder Hypertension History of seizures COPD (chronic obstructive pulmonary disease) Prostate CA Status post radiation Surgical History Status post-operative repair of closed fracture of left hip History of excision of lesion L neck History of cataract surgery History of tonsillectomy Family History Mother , 98, healthy No problems noted. Father CAD (coronary artery disease) Social History Smoking and tobacco/nicotine status: former use of tobacco/nicotine Quit status (tobacco/nicotine): has quit using Year quit tobacco: 20 years ago Second hand smoke exposure: No Alcohol intake: never Substance/Drug Use: never Lives independently: Yes Household members: none Physical Exam Const: COMMON NORMALS: alert HENMT: COMMON NORMALS: normocephalic, atraumatic, hearing grossly normal bilaterally, external ears normal, Normal external nose present, Normal nasal mucous membranes and turbinates present, moist oral mucous membranes and oropharynx normal HEAD & SCALP: normocephalic and atraumatic NOSE: Normal external nose present and Normal nasal mucous membranes and turbinates present EXTERNAL EAR: Yes external ears normal Eye: COMMON NORMALS: Equal, round and reactive pupils present, EOMs intact bilaterally, conjunctivae normal and no scleral icterus CONJUNCTIVA: Yes conjunctivae normal PUPIL: Yes Equal, round and reactive pupils present Neck/C-Spine: COMMON NORMALS: full ROM, no lymphadenopathy, supple, no meningeal signs and no JVD Chest: COMMONS NORMALS: normal inspection of the chest and normal palpation of entire chest wall Resp: COMMON NORMALS: normal respiratory effort, No retractions and No use of accessory muscles; negative for clear to auscultation bilaterally (Decreased breath sounds bilaterally) AUSCULTATION: not clear to auscultation bilaterally (Decreased breath sounds bilaterally) Cardio: COMMON NORMALS: no JVD, regular rhythm, S1 normal heart sound present, S2 normal heart sound present, No gallops present (Cardio), No clicks present (Cardio) and No murmurs present (Cardio); negative for regular rate (Tachycardic) RATE: abnormal rate (Tachycardic) RHYTHM: regular rhythm HEART SOUNDS: S1 normal heart sound present and S2 normal heart sound present GI: COMMON NORMALS: Normal to inspection, nondistended, normoactive bowel sounds present, Soft to palpation, non-tender, No hepatosplenomegaly present and no masses PALPATION: Yes Soft to palpation and Yes No hepatosplenomegaly present Neuro: SENSORIUM/ORIENTATION: Yes alert MENINGEAL SIGNS: Yes no meningeal signs Course Vital Signs: Vital signs: Vital Signs Temperature 98.6 F 07/31/24 06:58 Pulse Rate 89 07/31/24 09:24 Respiratory Rate 16 07/31/24 09:22 Blood Pressure 107/62 07/31/24 08:42 Pulse Oximetry 95 07/31/24 09:22 Oxygen Delivery Me thod Nasal Cannula 07/31/24 09:22 Oxygen Flow Rate 3 07/31/24 09:22 MDM - SOB/Dyspnea Medical Records I reviewed the patient's medical records. Lab Data I reviewed the patient's lab results. 07/31/24 04:22 07/31/24 04:22 Labs/Radiology: Radiology Impressions Chest X-Ray 07/31/24 04:13 IMPRESSION: 1. Moderate cardiomegaly with vascular congestion. 2. New increased density mid and lower lung sa[place] on the left concerning for superimposed infiltrate. Chest CTA 07/31/24 04:56 IMPRESSION: 1. No pulmonary embolism. 2. Ascending aortic aneurysm up to 4.7 cm, unchanged. Recommend continued surveillance. 3. Evidence of small airways inflammatory process. No focal infiltrate. 4. Moderate emphysematous changes. Laboratory Results WBC 2.60 10^3/uL (3.29-11.43) L 07/31/24 04:22 RBC 4.27 10^6/uL (3.85-5.65) 07/31/24 04:22 Hgb 12.50 g/dL (11.27-16.99) 07/31/24 04:22 Hct 38.5 % (37-53) 07/31/24 04:22 MCV 90.2 fl (82-101) 07/31/24 04:22 MCH 29.3 pg (27-33) 07/31/24 04:22 MCHC 32.5 g/dL (30-55) 07/31/24 04:22 RDW 12.6 % (12.1-15.1) 07/31/24 04:22 Plt Count 142 10^3/cmm (157-399) L 07/31/24 04:22 MPV 9.4 fL (7.4-10.4) 07/31/24 04:22 Neut % (Auto) 72.3 % 07/31/24 04:22 Lymph % (Auto) 13.1 % 07/31/24 04:22 [place] % (Auto) 12.3 % 07/31/24 04:22 Eos % (Auto) 0.0 % 07/31/24 04:22 Baso % (Auto) 0.4 % 07/31/24 04:22 Neut # (Auto) 1.88 10^3/uL (1.8-7.7) 07/31/24 04:22 Lymph # (Auto) 0.3 10^3/uL (0.8-4.8) L 07/31/24 04:22 [place] # (Auto) 0.3 10^3/uL (0.2-0.9) 07/31/24 04:22 Eos # (Auto) 0.0 10^3/uL (0.0-0.8) 07/31/24 04:22 Baso # (Auto) 0.0 10^3/uL (0.0-0.1) 07/31/24 04:22 Nucleated RBC % (auto) 0 % 07/31/24 04:22 Nucleated RBCs # 0.0 /100WBC 07/31/24 04:22 D-Dimer 1.08 ug/mLFEU (0-0.59) H 07/31/24 04:22 Specimen Type Arterial 07/31/24 04:25 Sample Site Brachial, left 07/31/24 04:25 ABG pH 7.47 (7.35-7.45) H 07/31/24 04:25 ABG pCO2 43.2 mmHg (35-45) 07/31/24 04:25 ABG pO2 57.9 mmHg (80.0-100.0) L 07/31/24 04:25 ABG HCO3 31.4 mmol/L (22-26) H 07/31/24 04:25 ABG O2 Saturation 93.0 07/31/24 04:25 ABG Base Excess 6.9 mmol/L (-2.0-2.0) H 07/31/24 04:25 Ruben Test Pos 07/31/24 04:25 A-a O2 Gradient 4.9 mmHg (5-10) L 07/31/24 04:25 Hematocrit 37.8 % (42-52) L 07/31/24 04:25 Hgb O2 Saturation 91.4 % (95-100) L 07/31/24 04:25 Carboxyhemoglobin 1.4 %THgb (0.4-20.1) 07/31/24 04:25 Methemoglobin 0.3 % (0.4-1.5) L 07/31/24 04:25 Total Hemoglobin 12.3 g/dL (14-18) L 07/31/24 04:25 Sodium 143.0 mmol/L (131-143) 07/31/24 04:25 Potassium 2.8 mmol/L (3.5-5.0) L 07/31/24 04:25 Glucose 132.0 mg/dL (70-115) H 07/31/24 04:25 Ionized Calcium 1.2 mmol/L (1.1-1.4) 07/31/24 04:25 O2 Delivery Device Nc 07/31/24 04:25 O2 Liters/Min 6.0 % 07/31/24 04:25 Computer Forwarding System Markup Clerk ID [email or web address] 07/31/24 04:25 Sodium 141 mmol/L (136-145) 07/31/24 04:22 Potassium 2.9 mmol/L (3.5-5.1) L 07/31/24 04:22 Chloride 98 mmol/L (98-107) 07/31/24 04:22 Carbon Dioxide 30 mmol/L (22-29) H 07/31/24 04:22 Anion Gap 15.9 (5-19) 07/31/24 04:22 BUN 36 mg/dL (8-23) H 07/31/24 04:22 Creatinine 1.1 mg/dL (0.7-1.2) 07/31/24 04:22 GFR Calculation Not Reportable 07/31/24 04:22 Glucose 126 mg/dL (65-115) H 07/31/24 04:22 Calculated Osmolality 302 mOsm/kg (285-295) H 07/31/24 04:22 Lactic Acid 1.9 mmol/L (0.5-2.2) 07/31/24 04:22 Calcium 9.3 mg/dL (8.5-10.5) 07/31/24 04:22 Total Bilirubin 0.8 mg/dL (0.15-1.2) 07/31/24 04:22 AST 25 U/L (0-40) 07/31/24 04:22 ALT 19 U/L (0-41) 07/31/24 04:22 Alkaline Phosphatase 96 U/L (40-130) 07/31/24 04:22 Troponin T Baseline 29 ng/L (0-15) H 07/31/24 04:22 Troponin T 120 Minute 31.23 ng/L (0-15) H 07/31/24 06:43 Delta Troponin T 2.23 ABS# (0-10) 07/31/24 06:43 Total Protein 7.5 g/dL (6.6-8.7) 07/31/24 04:22 Albumin 3.6 g/dL (3.5-5.2) 07/31/24 04:22 Globulin 3.9 g/dL (1.3-4.6) 07/31/24 04:22 TSH 0.98 uIU/mL (0.27-4.20) 07/31/24 06:43 Urine Color Yellow (Yellow) 07/31/24 04:41 Urine Appearance Cloudy (CLEAR) A 07/31/24 04:41 Urine pH 5.0 (5-7) 07/31/24 04:41 Ur Specific [place] 1.019 (1.005-1.030) 07/31/24 04:41 Urine Protein 1+ (Negative) A 07/31/24 04:41 Urine Glucose (UA) Negative (Normal) 07/31/24 04:41 Urine Ketones Negative (Negative) 07/31/24 04:41 Urine Blood Negative (Negative) 07/31/24 04:41 Urine Nitrate Negative (Negative) 07/31/24 04:41 Urine Bilirubin Negative (Negative) 07/31/24 04:41 Urine Urobilinogen 1.0 mg/dL (Negative) 07/31/24 04:41 Ur Leukocyte Esterase Negative (Negative) 07/31/24 04:41 Urine RBC 0-2 /hpf (0-2) 07/31/24 04:41 Urine WBC 0-5 /hpf (0-5) 07/31/24 04:41 Ur Squamous Epith Cells 0-5 /hpf (0-5) 07/31/24 04:41 Amorphous Sediment 2+ /hpf 07/31/24 04:41 Urine Bacteria None seen /hpf (NONE) 07/31/24 04:41 Hyaline Casts 20.67 /lpf 07/31/24 04:41 Coarse Granular Casts 0-4 /lpf H 07/31/24 04:41 All radiology interpretation(s) finalized by discharge Discharge Plan Discharge Patient Disposition: Admitted As Inpatient Admit Provider: Julio Barvo Clinical Impression: Influenza A, Atrial fibrillation with RVR, Acute hypoxic respiratory failure, Acute hypokalemia, Acute encephalopathy Condition: Stable Sign Out Sign Out Data: Patient Sign Out occurred on 07/31/24 at 06:20. Patient's care was discussed, and care was transferred from Abhinav Gupta DO to Simón Lind DO. Coding Level of Care Code ED Expander for Chg Fwd Documented by User: Simón L Cecilfranklyn, DO 07/31/24 11:31 HPI - SOB/Dyspnea General: Chief Complaint: ER Hold Stated Complaint: SOB Time Seen by Provider: 07/31/24 04:16 Related Data Home Medications ?Medication ?Instructions ?Recorded ?Confirmed aspirin 81 mg chewable tablet 81 mg PO QAM 11/29/19 07/31/24 oxcarbazepine 300 mg tablet 300 mg PO BID 11/29/19 07/31/24 acetaminophen 500 mg tablet 1,000 mg PO Q6H PRN Pain 03/18/23 07/31/24 albuterol sulfate 90 mcg/actuation 2 puff inhalation QID PRN 03/18/23 07/31/24 aerosol inhaler Shortness Of Breath latanoprost 0.005 % eye drops 1 drp ophthalmic (eye) BEDTIME 03/18/23 07/31/24 fluticasone propionate 50 1 spray intranasal DAILY 04/05/24 07/31/24 mcg/actuation nasal spray,suspension hydrochlorothiazide 25 mg tablet 25 mg PO DAILY 04/05/24 07/31/24 lorazepam 0.5 mg tablet 0.5 mg PO DAILY 04/05/24 07/31/24 nitrofurantoin macrocrystal 100 mg 100 mg PO DAILY 04/05/24 07/31/24 capsule potassium chloride 10 mEq 10 meq PO DAILY 04/05/24 07/31/24 capsule,extended release Lactobacillus rhamnosus GG 10 1 cap PO DAILY 07/31/24 07/31/24 billion cell capsule (Culturelle) apixaban 5 mg tablet (Eliquis) 5 mg PO BID 07/31/24 07/31/24 bisacodyl 10 mg rectal suppository [address] DAILY PRN Constipation 07/31/24 07/31/24 (Dulcolax (bisacodyl)) dextromethorphan-guaifenesin 5 10 ml PO Q4H PRN Cough 07/31/24 07/31/24 mg-100 mg/5 mL oral liquid (Robitussin Cough-Chest Congestion DM) losartan 25 mg tablet 25 mg PO DAILY 07/31/24 07/31/24 magnesium hydroxide 400 mg/5 mL 30 ml PO DAILY PRN Constipation 07/31/24 07/31/24 oral suspension (Milk of Magnesia) menthol 4 % topical gel (Biofreeze 1 applic topical TID PRN Pain 07/31/24 07/31/24 (menthol)) metoprolol tartrate 50 mg tablet 50 mg PO BID 07/31/24 07/31/24 ondansetron HCl 4 mg tablet 4 mg PO Q4H PRN Nausea And Vomiting 07/31/24 07/31/24 sertraline 100 mg tablet 100 mg PO DAILY 07/31/24 07/31/24 sodium phosphates 19 gram-[address] DAILY PRN Constipation 07/31/24 07/31/24 gram/118 mL enema (Fleet Enema) Previous Rx's ?Medication ?Instructions ?Recorded budesonide-formoterol HFA 80 2 puff inhalation BID #10.2 grams 03/17/23 mcg-4.5 mcg/actuation aerosol inhaler (Symbicort) ipratropium 0.5 mg-albuterol 3 mg 3 ml inhalation Q4H PRN shortness 03/17/23 (2.5 mg base)/3 mL nebulization of breath or wheezing #90 mL soln tamsulosin 0.4 mg capsule 0.4 mg PO DAILY #30 caps 03/21/23 clonazepam 0.5 mg tablet 0.25 mg (1/2 x 0.5 mg) PO BID PRN 04/08/24 arm tremor #20 tabs oxycodone-acetaminophen 5 mg-325 1 tab PO Q6H PRN Moderate Pain #10 04/08/24 mg tablet tabs sennosides 8.6 mg-docusate sodium 1 tab PO DAILY #10 tabs 04/08/24 50 mg tablet (Stool Softener-Laxative) pantoprazole 40 mg tablet,delayed 40 mg PO BID #60 tabs 04/09/24 release sling #1 ea 04/23/24 left cock up wrist brace #1 ea 05/28/24 oseltamivir 75 mg capsule (Tamiflu) 75 mg PO Q12H 5 days #10 caps 07/28/24 Allergies Allergy/AdvReac Type Severity Reaction Status Date / Time amoxicillin Allergy Unknown Verified 07/28/24 22:17 Penicillins Allergy Unknown Verified 07/28/24 22:17 [facility] ED PFSH: Medical History (Updated 07/31/24 @ 11:31 by Simón Lind, ) COPD exacerbation Left wrist fracture Anemia Pulmonary embolism Urinary tract infection Dizziness Frequent falls Closed left hip fracture Septic shock UTI (urinary tract infection) Acute exacerbation of chronic obstructive airways disease Pulmonary hypertension Diastolic congestive heart failure History of CVA (cerebrovascular accident) Hyperlipidemia Anxiety History of seizure disorder Hypertension History of seizures COPD (chronic obstructive pulmonary disease) Prostate CA Status post radiation Surgical History Status post-operative repair of closed fracture of left hip History of excision of lesion L neck History of cataract surgery History of tonsillectomy Family History Mother , 98, healthy No problems noted. Father CAD (coronary artery disease) Social History Smoking and tobacco/nicotine status: former use of tobacco/nicotine Quit status (tobacco/nicotine): has quit using Year quit tobacco: 20 years ago Second hand smoke exposure: No Alcohol intake: never Substance/Drug Use: never Lives independently: Yes Household members: none Course Vital Signs: Vital signs: Vital Signs Temperature 98.6 F 07/31/24 06:58 Pulse Rate 89 07/31/24 09:24 Respiratory Rate 16 07/31/24 09:22 Blood Pressure 107/62 07/31/24 08:42 Pulse Oximetry 95 07/31/24 09:22 Oxygen Delivery Me thod Nasal Cannula 07/31/24 09:22 Oxygen Flow Rate 3 07/31/24 09:22 MDM - SOB/Dyspnea Medical Decision Making Care assumed at change of shift. Patient seen and evaluated on exam patient's rate is now well-controlled on Cardizem drip. Noted on the monitor strip he was actually converted. Will try to titrate him off of the Cardizem. He has positive flu A is requiring oxygen now which she has not been in the past CT of the chest did not show any PE. Interestingly CT shows inflammatory process in the small airways but no focal infiltrates. Discussed with hospitalist orders written. Lab Data 07/31/24 04:22 07/31/24 04:22 Labs/Radiology: Radiology Impressions Chest X-Ray 07/31/24 04:13 IMPRESSION: 1. Moderate cardiomegaly with vascular congestion. 2. New increased density mid and lower lung [place] on the left concerning for superimposed infiltrate. Chest CTA 07/31/24 04:56 IMPRESSION: 1. No pulmonary embolism. 2. Ascending aortic aneurysm up to 4.7 cm, unchanged. Recommend continued surveillance. 3. Evidence of small airways inflammatory process. No focal infiltrate. 4. Moderate emphysematous changes. Laboratory Results WBC 2.60 10^3/uL (3.29-11.43) L 07/31/24 04:22 RBC 4.27 10^6/uL (3.85-5.65) 07/31/24 04:22 Hgb 12.50 g/dL (11.27-16.99) 07/31/24 04:22 Hct 38.5 % (37-53) 07/31/24 04:22 MCV 90.2 fl (82-101) 07/31/24 04:22 MCH 29.3 pg (27-33) 07/31/24 04:22 MCHC 32.5 g/dL (30-55) 07/31/24 04:22 RDW 12.6 % (12.1-15.1) 07/31/24 04:22 Plt Count 142 10^3/cmm (157-399) L 07/31/24 04:22 MPV 9.4 fL (7.4-10.4) 07/31/24 04:22 Neut % (Auto) 72.3 % 07/31/24 04:22 Lymph % (Auto) 13.1 % 07/31/24 04:22 [place] % (Auto) 12.3 % 07/31/24 04:22 Eos % (Auto) 0.0 % 07/31/24 04:22 Baso % (Auto) 0.4 % 07/31/24 04:22 Neut # (Auto) 1.88 10^3/uL (1.8-7.7) 07/31/24 04:22 Lymph # (Auto) 0.3 10^3/uL (0.8-4.8) L 07/31/24 04:22 [place] # (Auto) 0.3 10^3/uL (0.2-0.9) 07/31/24 04:22 Eos # (Auto) 0.0 10^3/uL (0.0-0.8) 07/31/24 04:22 Baso # (Auto) 0.0 10^3/uL (0.0-0.1) 07/31/24 04: Nucleated RBC % (auto) 0 % 07/31/24 04: Nucleated RBCs # 0.0 /100WBC 07/31/24 04:22 D-Dimer 1.08 ug/mLFEU (0-0.59) H 07/31/24 04:22 Specimen Type Arterial 07/31/24 04:25 Sample Site Brachial, left 07/31/24 04:25 ABG pH 7.47 (7.35-7.45) H 07/31/24 04:25 ABG pCO2 43.2 mmHg (35-45) 07/31/24 04:25 ABG pO2 57.9 mmHg (80.0-100.0) L 07/31/24 04:25 ABG HCO3 31.4 mmol/L (22-26) H 07/31/24 04:25 ABG O2 Saturation 93.0 07/31/24 04:25 ABG Base Excess 6.9 mmol/L (-2.0-2.0) H 07/31/24 04:25 Ruben Test Pos 07/31/24 04:25 A-a O2 Gradient 4.9 mmHg (5-10) L 07/31/24 04:25 Hematocrit 37.8 % (42-52) L 07/31/24 04:25 Hgb O2 Saturation 91.4 % (95-100) L 07/31/24 04:25 Carboxyhemoglobin 1.4 %THgb (0.4-20.1) 07/31/24 04:25 Methemoglobin 0.3 % (0.4-1.5) L 07/31/24 04:25 Total Hemoglobin 12.3 g/dL (14-18) L 07/31/24 04:25 Sodium 143.0 mmol/L (131-143) 07/31/24 04:25 Potassium 2.8 mmol/L (3.5-5.0) L 07/31/24 04:25 Glucose 132.0 mg/dL (70-115) H 07/31/24 04:25 Ionized Calcium 1.2 mmol/L (1.1-1.4) 07/31/24 04:25 O2 Delivery Device Nc 07/31/24 04:25 O2 Liters/Min 6.0 % 07/31/24 04:25 Computer Forwarding System Markup Clerk ID [email or web address] 07/31/24 04:25 Sodium 141 mmol/L (136-145) 07/31/24 04:22 Potassium 2.9 mmol/L (3.5-5.1) L 07/31/24 04:22 Chloride 98 mmol/L (98-107) 07/31/24 04:22 Carbon Dioxide 30 mmol/L (22-29) H 07/31/24 04:22 Anion Gap 15.9 (5-19) 07/31/24 04:22 BUN 36 mg/dL (8-23) H 07/31/24 04:22 Creatinine 1.1 mg/dL (0.7-1.2) 07/31/24 04:22 GFR Calculation Not Reportable 07/31/24 04:22 Glucose 126 mg/dL (65-115) H 07/31/24 04:22 Calculated Osmolality 302 mOsm/kg (285-295) H 07/31/24 04:22 Lactic Acid 1.9 mmol/L (0.5-2.2) 07/31/24 04:22 Calcium 9.3 mg/dL (8.5-10.5) 07/31/24 04:22 Total Bilirubin 0.8 mg/dL (0.15-1.2) 07/31/24 04:22 AST 25 U/L (0-40) 07/31/24 04:22 ALT 19 U/L (0-41) 07/31/24 04:22 Alkaline Phosphatase 96 U/L (40-130) 07/31/24 04:22 Troponin T Baseline 29 ng/L (0-15) H 07/31/24 04:22 Troponin T 120 Minute 31.23 ng/L (0-15) H 07/31/24 06:43 Delta Troponin T 2.23 ABS# (0-10) 07/31/24 06:43 Total Protein 7.5 g/dL (6.6-8.7) 07/31/24 04:22 Albumin 3.6 g/dL (3.5-5.2) 07/31/24 04:22 Globulin 3.9 g/dL (1.3-4.6) 07/31/24 04:22 TSH 0.98 uIU/mL (0.27-4.20) 07/31/24 06:43 Urine Color Yellow (Yellow) 07/31/24 04:41 Urine Appearance Cloudy (CLEAR) A 07/31/24 04:41 Urine pH 5.0 (5-7) 07/31/24 04:41 Ur Specific [place] 1.019 (1.005-1.030) 07/31/24 04:41 Urine Protein 1+ (Negative) A 07/31/24 04:41 Urine Glucose (UA) Negative (Normal) 07/31/24 04:41 Urine Ketones Negative (Negative) 07/31/24 04:41 Urine Blood Negative (Negative) 07/31/24 04:41 Urine Nitrate Negative (Negative) 07/31/24 04:41 Urine Bilirubin Negative (Negative) 07/31/24 04:41 Urine Urobilinogen 1.0 mg/dL (Negative) 07/31/24 04:41 Ur Leukocyte Esterase Negative (Negative) 07/31/24 04:41 Urine RBC 0-2 /hpf (0-2) 07/31/24 04:41 Urine WBC 0-5 /hpf (0-5) 07/31/24 04:41 Ur Squamous Epith Cells 0-5 /hpf (0-5) 07/31/24 04:41 Amorphous Sediment 2+ /hpf 07/31/24 04:41 Urine Bacteria None seen /hpf (NONE) 07/31/24 04:41 Hyaline Casts 20.67 /lpf 07/31/24 04:41 Coarse Granular Casts 0-4 /lpf H 07/31/24 04:41 Discharge Plan Discharge Patient Disposition: Admitted As Inpatient Admit Provider: Julio Bravo Clinical Impression: Influenza A, Atrial fibrillation with RVR, Acute hypoxic respiratory failure, Acute hypokalemia, Acute encephalopathy Condition: Stable Sign Out Sign Out Data: Patient Sign Out occurred on 07/31/24 at 06:20. Patient's care was discussed, and care was transferred from Abhinav Gupta DO to Simón Lind DO. Coding Level of Care Code ED Expander for Aldair Pino
[2024-07-31] MEDS: acetaminophen 1,000 MG/100 ML PIGGYBACK 400 MG IV (04:31)
[2024-07-31 04:33] LABS: ABG PCO2 43.2 mmHg (35-45); ABG PH Result 7.47 (7.35-7.45); Alveolar-Arterial Oxygen Gradi 4.9 mmHg (5-10); Arterial Blood Gas Hematocrit 37.8 % (42-52); Base Excess ABG 6.9 mmol/L (-2.0-2.0); Blood Gas Allen Test Pos; Blood Gas Sample Site Brachial, left; Blood Gas Sample Type Arterial; Carboxyhemoglobin 1.4 %THgb (0.4-20.1); HCO3 ABG 31.4 mmol/L (22-26); HGB O2 Sat 91.4 % (95-100); Ionized Calcium Level - ABG 1.2 mmol/L (1.1-1.4); Methemoglobin 0.3 % (0.4-1.5); Oxygen Device NC; PO2 ABG 57.9 mmHg (80.0-100.0); Potassium Level - ABG 2.8 mmol/L (3.5-5.0); Total Hemoglobin 12.3 g/dL (14-18)
[2024-07-31 04:38] LABS: Basophils % 0.4 %; Hematocrit 38.5 % (37-53); Lymphocytes # 0.3 10^3/uL (0.8-4.8); Lymphocytes % 13.1 %; Mean Corpuscular HGB Conc 32.5 g/dL (30-55); Mean Corpuscular Hemoglobin 29.3 pg (27-33); Mean Corpuscular Volume 90.2 fl (82-101); Mean Platelet Volume 9.4 fL (7.4-10.4); Monocytes # 0.3 10^3/uL (0.2-0.9); Monocytes % 12.3 %; Neutrophils # 1.88 10^3/uL (1.8-7.7); Neutrophils % 72.3 %; Nucleated Red Blood Cells % 0 %; Platelet Count 142 10^3/cmm (157-399); Red Blood Count 4.27 10^6/uL (3.85-5.65); Red Cell Distribution Width 12.6 % (12.1-15.1)
[2024-07-31 04:49] LABS: Lactic Sepsis W/Reflex 1.9 mmol/L (0.5-2.2); Troponin(5th) Baseline 29 ng/L (0-15)
[2024-07-31 04:50] LABS: D Dimer 1.08 ug/mLFEU (0-0.59)
[2024-07-31 04:52] LABS: Alanine Aminotransferase 19 U/L (0-41); Albumin Level 3.6 g/dL (3.5-5.2); Alkaline Phosphatase 96 U/L (40-130); Anion Gap 15.9 (5-19); Aspartate Amino Transferase 25 U/L (0-40); Blood Urea Nitrogen 36 mg/dL (8-23); Calcium 9.3 mg/dL (8.5-10.5); Carbon Dioxide 30 mmol/L (22-29); Chloride 98 mmol/L (98-107); Creatinine Clr Calc Pharmacy 42.4797; Globulin 3.9 g/dL (1.3-4.6); Glucose 126 mg/dL (65-115); Osmolality Calculated 302 mOsm/kg (285-295); Sodium 141 mmol/L (136-145); Total Bilirubin 0.8 mg/dL (0.15-1.2); Total Protein 7.5 g/dL (6.6-8.7)
[2024-07-31 04:55] LABS: Potassium 2.9 mmol/L (3.5-5.1)
--- NOTE | 2024-07-31 04:56 | CTR_ITS ---
PROCEDURE INFORMATION: Exam: CTA Chest With Contrast Exam date and time: 07/31/2024 5:20 AM Age: 88 years old Clinical indication: Abnormal findings; Abnormal diagnostic tests; Elevated d-dimer; Cough and shortness of breath; Cough with SOB and hypoxia. Tachycardic with dimer 1.08. ; Additional info: Elevated d-dimer, tachypnea, tachycardic, TECHNIQUE: Imaging protocol: Computed tomographic angiography of the chest with contrast. Exam focused on the arteries. 3D rendering (Not supervised by radiologist): MIP and/or 3D reconstructed images were created by the technologist. Radiation optimization: All CT scans at this facility use at least one of these dose optimization techniques: automated exposure control; mA and/or kV adjustment per patient size (includes targeted exams where dose is matched to clinical indication); or iterative reconstruction. Contrast material: OMNI 350; Contrast volume: 56 ml; Contrast route: INTRAVENOUS (IV); COMPARISON: CT angio chest PE protcl [id number] 04/09/2024 5:55 AM RADIATION DOSE METRICS: Total DLP (mGy-cm): 264.01 FINDINGS: Limitations: Motion artifact limits evaluation. Pulmonary arteries: No pulmonary embolism. Aorta: Ascending aortic aneurysm up to 4.7 cm, unchanged. Recommend continued surveillance. Other arteries: Calcified atherosclerotic plaque noted. Lungs: Moderate centrilobular emphysematous changes are noted. Chronic pleural-parenchymal scarring lung apices noted. There is peribronchial thickening more prominent in the lung bases increased from prior exam . There are a few scattered small airways inflammatory pulmonary nodules within the superior segment left lower lobe. No focal infiltrate. Pleural spaces: See Lungs finding. Heart: There is mild cardiomegaly. Coronary arteries: There is atherosclerotic calcification coronary arteries. Lymph nodes: Mildly prominent nonspecific mediastinal lymph nodes noted. Bones/joints: Unremarkable. No acute fracture. Soft tissues: Unremarkable. CT/CT angio chest PE protcl [id number] IMPRESSION: 1. No pulmonary embolism. 2. Ascending aortic aneurysm up to 4.7 cm, unchanged. Recommend continued surveillance. 3. Evidence of small airways inflammatory process. No focal infiltrate. 4. Moderate emphysematous changes.
[2024-07-31 05:03] LABS: Bilirubin Urine Negative (Negative); Blood Urine Negative (Negative); Glucose Urine UA Negative (Normal); Ketones Urine Negative (Negative); Leukocyte Esterase Urine Negative (Negative); Nitrate Urine Negative (Negative); Protein Urine 1+ (Negative); Specific Gravity, Urine 1.019 (1.005-1.030); Urine Appearance Cloudy (CLEAR); Urine Color Yellow (Yellow)
[2024-07-31 05:07] LABS: Add Urine Microscopic? YES; Bacteria Urine None Seen /hpf; Hyaline Casts Urine 20.67 /lpf; RBC Urine 0-2 /hpf (0-2); Squamous Epithelial Cell Urine 0-5 /hpf (0-5); WBC Urine 0-5 /hpf (0-5)
[2024-07-31 05:26] LABS: Slide Review Slide Review Perform
[2024-07-31] MEDS: iohexol 350 mg/mL 500 mL Btl (per mL) IV (05:26)
[2024-07-31 05:29] LABS: UA Slide Review UA Slide Review Perf
[2024-07-31 05:30] LABS: Add Urine Culture? No; Amorphous Sediment Urine 2+ /hpf; Coarse Granular Casts Urine 0-4 /lpf
[2024-07-31] MEDS: dilTIAZem 100 MG in sodium chloride 0.9% (add-van) 100 ML IV (05:46)
[2024-07-31] MEDS: potassium chloride ER 20 mEq Tablet 40 MEQ PO (05:46)
[2024-07-31] MEDS: dilTIAZem 5 mg/mL SDV 5 mL 10 MG IVP (05:46)
--- NOTE | 2024-07-31 06:14 | ECG_ITS ---
[facility] Test Date: 2024-07-31 Pat Name: Alessandro Duran Department: Room: EDIP Gender: Male Box Shook Patcher: : 1935 Requested By: Abhinav Gupta Order Number: [id number] Reading MD: FLORY GARCIA Measurements Intervals [place] Rate: 86 P: 29 WI: 183 QRS: -47 QRSD: 90 T: 40 QT: 407 QTc: 487 Interpretive Statements SINUS RHYTHM LEFT ANTERIOR FASCICULAR BLOCK [QRS AXIS <= -45, QR IN I, RS IN II] POSSIBLE ANTERIOR MYOCARDIAL INFARCTION , PROBABLY OLD [30 ms Q WAVE IN V3/V4, OR R < 0.2 mV IN V4] INFERIOR MYOCARDIAL INFARCTION , PROBABLY OLD [40+ ms Q WAVE AND/OR ST/T ABNORMALITY IN II/aVF] Compared to ECG 07/31/2024 08:53:49 Left anterior fascicular block now present Left-axis deviation no longer present Myocardial infarct finding still present Electronically Signed On 08-01-2024 21:08:56 CHIEF WHEELAGE CLERK by FLORY GRACIA [email or web address]
[2024-07-31] MEDS: dexamethasone 10 mg/mL INJ IM (06:56)
--- NOTE | 2024-07-31 07:04 | PC.NURSE ---
pt received 1 L LR per Gupta DO continued from EMS
[2024-07-31 07:24] LABS: Troponin 5 2HR 31.23 ng/L (0-15); Troponin 5 2HR Delta 2.23 ABS# (0-10)
--- NOTE | 2024-07-31 07:39 | PC.NURSE ---
this nurse and date night caregiver nurse assessed gtt rate and oxygen level. pt denies any further needs at this time
[2024-07-31] MEDS: ipratropium-albuterol 3 mL Neb INHALATION ×2 (08:05→21:33)
[2024-07-31] MEDS: MEROPENEM 2,000 MG in sodium chloride 0.9% (plus) 50 ML 100 MG IV (08:30)
--- NOTE | 2024-07-31 08:37 | USCV_ITS ---
Alessandro Duran Age: 88 Gender: M : 1935 Exam Date: 07/31/2024 18:31 Ordering Phys: Julio Bravo MD Technologist: Saul Haque Exam Location: [facility] Indication: afib BP: 125 / 74 HR: 86 Rhythm: Sinus Technical Quality: Adequate MEASUREMENTS (Male / Female) Normal Values 2D ECHO LV Diastolic Diameter PLAX 5.3 cm 4.2 - 5.9 / 3.9 - 5.3 cm IVS Diastolic Thickness 1.0 cm 0.6 - 1.0 / 0.6 - 0.9 cm IVS Systolic Thickness 1.2 cm LVPW Diastolic Thickness 1.5 cm 0.6 - 1.0 / 0.6 - 0.9 cm LVPW Systolic Thickness 1.8 cm LVOT Diameter 2.0 cm LV Ejection Fraction 2D Teich 54.1 % LV Ejection Fraction MOD 4C 63.9 % LV Ejection Fraction MOD 2C 60.4 % LV Ejection Fraction 2C AL 61.8 % LA Diameter 3.1 cm RA Systolic Volume 4C AL 34.2 ml RA Systolic Volume 4C MOD 34.6 ml LA Sys Volume AL 48.5 cm cubed LA Sys Volume Index AL 27.4 cm cubed/m squared Aorta at Sinotubular Diameter 2.7 cm IVC Diameter 2.0 cm M-MODE LA Ao Ratio MM 1.3 AV Cusp Separation MM 1.8 cm DOPPLER AV Peak Velocity 185.0 cm/s LVOT Peak Velocity 166.0 cm/s AV Area Cont Eq vti 2.1 cm squared AV Area Cont Eq pk 2.8 cm squared MV Peak Velocity 87.0 cm/s MV Area PHT 4.7 cm squared Mitral E to A Ratio 0.8 TR Peak Velocity 352.0 cm/s TR Peak Gradient 49.6 mmHg TR Mean Velocity 267.0 cm/s TR Mean Gradient 31.5 mmHg TR Velocity Time Integral 105.6 cm PV Peak Velocity 84.0 cm/s RV Ejection Time 0.3 s FINDINGS Left Ventricle Normal left ventricular size, systolic function and wall thickness, with no regional wall motion abnormalities. Left ventricular ejection fraction is estimated at 60 %. Grade I/IV diastolic dysfunction (abnormal relaxation filling pattern), normal to mildly elevated filling pressures. Right Ventricle The right ventricle is normal in size and function. Right Atrium The right atrium is normal in size. Left Atrium The left atrium is normal in size. Mitral Valve Mildly thickened mitral valve. No mitral valve stenosis. Mild mitral valve regurgitation. Aortic Valve Mild aortic valve calcification. Mild aortic valve stenosis, mean gradient 7.4 mmHg, FLORENCE 2.1 cm squared. Trace aortic valve regurgitation. Tricuspid Valve Mild tricuspid valve regurgitation. Pulmonic Valve Structurally normal pulmonic valve without significant stenosis. There is no pulmonic regurgitation. Pericardium Normal pericardium without effusion. Aorta Normal ascending aorta dimension. IVC The inferior vena cava appears normal. CONCLUSIONS Normal left ventricular size, systolic function and wall thickness, with no regional wall motion abnormalities. Left ventricular ejection fraction is estimated at 60 %. Grade I/IV diastolic dysfunction (abnormal relaxation filling pattern), normal to mildly elevated filling pressures. Mild aortic valve calcification. Mild aortic valve stenosis, mean gradient 7.4 mmHg, FLORENCE 2.1 cm squared. Trace aortic valve regurgitation. Mildly thickened mitral valve. No mitral valve stenosis. Mild mitral valve regurgitation. There is no pericardial effusion. Right atrial pressure is around 10 mm of mercury. Essence Hernandez MD (Electronically Signed) Final Date: 31 July 2024 20:10 S
[2024-07-31 09:00] LABS: Thyroid Stimulating Hormone 0.98 uIU/mL (0.27-4.20)
[2024-07-31] MEDS: VANCOMYCIN ADD-Vantage 1,000 MG in 0.9% NaCl ADD-Vantage 250 ML 250 MG IV ×2 (09:15→09:37)
[2024-07-31] MEDS: budesonide 0.5 mg/2 mL Neb INHALATION ×2 (09:21→21:33)
[2024-07-31] MEDS: pantoprazole 40 mg SDV IVP (09:27)
[2024-07-31] MEDS: sertraline 100 mg Tablet PO (09:29)
[2024-07-31] MEDS: OXcarbazepine 300 mg Tablet PO ×2 (09:30→18:13)
[2024-07-31] MEDS: oseltamivir phosphate 30 mg Capsule PO ×2 (09:30→21:12)
[2024-07-31] MEDS: tamsulosin 0.4 mg Capsule PO (09:30)
[2024-07-31] MEDS: apixaban 5 mg Tablet PO ×2 (09:30→18:13)
--- NOTE | 2024-07-31 10:14 | ECG_ITS ---
[employer] Test Date: 2024-07-31 Pat Name: Alessandro Duran Department: Room: EDIP Gender: Male Operations Intelligence: : 1935 Requested By: Abhinav Gupta Order Number: [id number] Reading MD: FLORY GARCIA Measurements Intervals [place] Rate: 86 P: 56 [place]: 182 QRS: -34 QRSD: 88 T: 56 QT: 399 QTc: 478 Interpretive Statements SINUS RHYTHM LEFT AXIS DEVIATION [QRS AXIS < -30] POSSIBLE ANTERIOR MYOCARDIAL INFARCTION , OF INDETERMINATE AGE [30 ms Q WAVE IN V3/V4, OR R < 0.2 mV IN V4] Compared to ECG 07/31/2024 05:06:16 Atrial fibrillation no longer present Myocardial infarct finding still present Electronically Signed On 08-01-2024 21:09:06 PAINTER MIRROR by FLORY GARCIA [id number]
--- NOTE | 2024-07-31 10:57 | PM.HP ---
Providers/Chief Complaint Admitting Physician: Julio Bravo MD Primary Care Provider: ELVIA Mitchell Chief Complaint: SOB History of Present Illness Alessandro Duran is a 88 year old male with a past medical history of pulmonary embolism on Eliquis, COPD, hypertension, diastolic CHF, pulmonary hypertension, hyperlipidemia, history of UTIs, history of seizures, history of CVA history of prostate cancer who presents [facility] for shortness of breath. Currently patient is alert to person, to place, not to time he can follow commands but easily is confused. He is just not realizing in the hospital but does complain of shortness of breath. Currently on 6 L, mild respiratory failure, nasal flaring, intercostal retractions, suprasternal retractions. Currently in A-fib on Cardizem drip, patient tested positive for influenza, was started on Tamiflu 48 hours ago, he denies any chest pain, no flank pain, no dysuria, Review of Systems Const: Reports: fatigue and malaise Medications/Allergies Home Medications ?Medication ?Instructions ?Recorded ?Confirmed ?Last Taken ?Type aspirin 81 mg chewable tablet 81 mg PO QAM 11/29/19 07/31/24 04/08/24 History oxcarbazepine 300 mg tablet 300 mg PO BID 11/29/19 07/31/24 04/08/24 07:55 History budesonide-formoterol HFA 80 2 puff inhalation BID #10.2 grams 03/17/23 07/31/24 04/04/24 Rx mcg-4.5 mcg/actuation aerosol inhaler (Symbicort) ipratropium 0.5 mg-albuterol 3 mg 3 ml inhalation Q4H PRN shortness 03/17/23 07/31/24 04/04/24 Rx (2.5 mg base)/3 mL nebulization of breath or wheezing #90 mL soln acetaminophen 500 mg tablet 1,000 mg PO Q6H PRN Pain 03/18/23 07/31/24 04/04/24 History albuterol sulfate 90 mcg/actuation 2 puff inhalation QID PRN 03/18/23 07/31/24 04/04/24 History aerosol inhaler Shortness Of Breath latanoprost 0.005 % eye drops 1 drp ophthalmic (eye) BEDTIME 03/18/23 07/31/24 04/04/24 History tamsulosin 0.4 mg capsule 0.4 mg PO DAILY #30 caps 03/21/23 07/31/24 04/08/24 07:54 Rx fluticasone propionate 50 1 spray intranasal DAILY 04/05/24 07/31/24 04/04/24 History mcg/actuation nasal spray,suspension hydrochlorothiazide 25 mg tablet 25 mg PO DAILY 04/05/24 07/31/24 04/04/24 History lorazepam 0.5 mg tablet 0.5 mg PO DAILY 04/05/24 07/31/24 04/08/24 07:55 History nitrofurantoin macrocrystal 100 mg 100 mg PO DAILY 04/05/24 07/31/24 04/04/24 History capsule potassium chloride 10 mEq 10 meq PO DAILY 04/05/24 07/31/24 04/04/24 History capsule,extended release clonazepam 0.5 mg tablet 0.25 mg (1/2 x 0.5 mg) PO BID PRN 04/08/24 07/31/24 Unknown Rx arm tremor #20 tabs oxycodone-acetaminophen 5 mg-325 1 tab PO Q6H PRN Moderate Pain #10 04/08/24 07/31/24 04/08/24 07:50 Rx mg tablet tabs sennosides 8.6 mg-docusate sodium 1 tab PO DAILY #10 tabs 04/08/24 07/31/24 Unknown Rx 50 mg tablet (Stool Softener-Laxative) pantoprazole 40 mg tablet,delayed 40 mg PO BID #60 tabs 04/09/24 07/31/24 Unknown Rx release sling #1 ea 04/23/24 07/31/24 Unknown Rx left cock up wrist brace #1 ea 05/28/24 07/31/24 Unknown Rx oseltamivir 75 mg capsule (Tamiflu) 75 mg PO Q12H 5 days #10 caps 07/28/24 07/31/24 Unknown Rx Lactobacillus rhamnosus GG 10 1 cap PO DAILY 07/31/24 07/31/24 Unknown History billion cell capsule (Culturelle) apixaban 5 mg tablet (Eliquis) 5 mg PO BID 07/31/24 07/31/24 Unknown History bisacodyl 10 mg rectal suppository 10 mg LA DAILY PRN Constipation 07/31/24 07/31/24 Unknown History (Dulcolax (bisacodyl)) dextromethorphan-guaifenesin 5 10 ml PO Q4H PRN Cough 07/31/24 07/31/24 Unknown History mg-100 mg/5 mL oral liquid (Robitussin Cough-Chest Congestion DM) losartan 25 mg tablet 25 mg PO DAILY 07/31/24 07/31/24 Unknown History magnesium hydroxide 400 mg/5 mL 30 ml PO DAILY PRN Constipation 07/31/24 07/31/24 Unknown History oral suspension (Milk of Magnesia) menthol 4 % topical gel (Biofreeze 1 applic topical TID PRN Pain 07/31/24 07/31/24 Unknown History (menthol)) metoprolol tartrate 50 mg tablet 50 mg PO BID 07/31/24 07/31/24 Unknown History ondansetron HCl 4 mg tablet 4 mg PO Q4H PRN Nausea And Vomiting 07/31/24 07/31/24 Unknown History sertraline 100 mg tablet 100 mg PO DAILY 07/31/24 07/31/24 Unknown History sodium phosphates 19 gram-7 118 ml LA DAILY PRN Constipation 07/31/24 07/31/24 Unknown History gram/118 mL enema (Fleet Enema) Allergies Allergy/AdvReac Type Severity Reaction Status Date / Time amoxicillin Allergy Unknown Verified 07/28/24 22:17 Penicillins Allergy Unknown Verified 07/28/24 22:17 PFSH Acute PFSH: Medical History (Updated 07/31/24 @ 11:05 by Julio Bravo MD) COPD exacerbation Left wrist fracture Anemia Pulmonary embolism Urinary tract infection Dizziness Frequent falls Closed left hip fracture Septic shock UTI (urinary tract infection) Acute exacerbation of chronic obstructive airways disease Pulmonary hypertension Diastolic congestive heart failure History of CVA (cerebrovascular accident) Hyperlipidemia Anxiety History of seizure disorder Hypertension History of seizures COPD (chronic obstructive pulmonary disease) Prostate CA Status post radiation Surgical History Status post-operative repair of closed fracture of left hip History of excision of lesion L neck History of cataract surgery History of tonsillectomy Family History Mother , 98, healthy No problems noted. Father CAD (coronary artery disease) Social History Smoking and tobacco/nicotine status: former use of tobacco/nicotine Quit status (tobacco/nicotine): has quit using Year quit tobacco: 20 years ago Second hand smoke exposure: No Alcohol intake: never Substance/Drug Use: never Lives independently: Yes Household members: none Vitals/I&O/Wt Last Vital Signs Temp 98.6 F 07/31/24 06:58 Pulse 89 07/31/24 09:24 Resp 16 07/31/24 09:22 BP 107/62 07/31/24 08:42 Pulse Ox 95 07/31/24 09:22 O2 Del Method Nasal Cannula 07/31/24 09:22 O2 Flow Rate 3 07/31/24 09:22 07/30/24 07/31/24 07/31/24 22:59 06:59 14:59 Intake Total 225 / 225 50 / 50 Balance 225 / 225 50 / 50 Weight last 48 hrs Weight 65.771 kg Physical Exam Const: COMMON NORMALS: no acute distress EXAM LIMITATIONS: altered mental status ORIENTATION/CONSCIOUSNESS: Yes awake, Yes oriented to person, Yes oriented to place and Yes confused; not oriented to time Eye: COMMON NORMALS: Equal, round and reactive pupils present Resp: OTHER: Wheezing and crackles in all lung saucedo, nasal flaring, intercostal retractions suprasternal retractions, tachypnea, tachycardia mild to moderate respiratory distress, Cardio: COMMON NORMALS: no JVD, regular rate, regular rhythm, S1 normal heart sound present and S2 normal heart sound present RATE: regular rate RHYTHM: regular rhythm HEART SOUNDS: S1 normal heart sound present and S2 normal heart sound present GI: COMMON NORMALS: Normal to inspection, nondistended, normoactive bowel sounds present, Soft to palpation and non-tender Extremity: COMMON NORMALS: no pedal edema Neuro: COMMON NORMALS: CN's II-XII intact bilaterally, moves all extremities and no focal motor deficits Psych: COMMON NORMALS: mental status grossly normal Sepsis: Is patient septic: Yes Focused sepsis exam performed: Yes Focused sepsis exam: DP PT pulses palpable, cap refill 2 seconds normal Date exam was performed: 07/31/24 Time exam was performed: 10:00 Data 07/31/24 04:22 07/31/24 04:22 Micro: Microbiology 07/31/24 04:45 Blood Culture - Preliminary Blood SPECIMEN COLLECTED 07/31/24 04:22 Blood Culture - Preliminary Blood SPECIMEN COLLECTED A&P Assessment and plan (1) Acute hypoxic respiratory failure: (2) Influenza A: (3) Sepsis: (4) Hyperlipidemia: (5) PINEDA (acute kidney injury): (6) Pneumonia: Qualifiers: Laterality: left Lung location: lower lobe of lung Pneumonia type: due to unspecified organism Qualified Code(s): J18.9 - Pneumonia, unspecified organism (7) Acute encephalopathy: (8) COPD exacerbation: (9) Atrial fibrillation with RVR: Plan Acute encephalopathy -Likely combination of pneumonia, influenza A, hypoxia -Neurochecks -NIH stroke scale -Aspiration precautions Acute hypoxic respiratory failure -Multifactorial from influenza A, pneumonia -COPD exacerbation -CT angiogram of the chest shows CT/CT angio chest PE protcl [id number] IMPRESSION: 1. No pulmonary embolism. 2. Ascending aortic aneurysm up to 4.7 cm, unchanged. Recommend continued surveillance. 3. Evidence of small airways inflammatory process. No focal infiltrate. 4. Moderate emphysematous changes. Plan -Start Tamiflu -Start vancomycin -Start Zosyn -Solu-Medrol 40 mg IV every 8 hours -DuoNeb -Budesonide -Sputum culture -Blood culture -Monitor respiratory status closely A-fib with rapid ventricular response -Currently on Cardizem drip -Switch to p.o. Cardizem -Eliquis 5 mg twice daily Hypokalemia, replaced in the emergency room Sepsis -Sepsis features met, given evidence of acute hypoxic respiratory failure, acute respiratory distress, influenza A, pneumonia, full code eliquis for dvt prophylaxis PDMP PDMP Reviewed: Not Reviewed Attestations Medical Necessity Statement*: Patient requires hospitalization, inpatient, greater than 2 midnights, for A-fib with RVR, influenza A, acute hypoxic respiratory failure, acute respiratory distress, pneumonia, acute encephalopathy Diagnoses Acute hypoxic respiratory failure J96.01 Influenza A J10.1 Sepsis A41.9 Hyperlipidemia E78.5 PINEDA (acute kidney injury) N17.9 Pneumonia J18.9 Laterality: left Lung location: lower lobe of lung Pneumonia type: due to unspecified organism Acute encephalopathy G93.40 COPD exacerbation J44.1 Atrial fibrillation with RVR I48.91
[2024-07-31 11:04] LABS: Troponin 5 6HR 26.35 ng/L (0-15)
[2024-07-31 11:05] LABS: Troponin 5 6HR Delta -2.65 ng/L (0-12)
[2024-07-31] MEDS: dilTIAZem 30 mg Tablet PO ×2 (13:08→18:13)
--- OUTSIDE RECORDS SUMMARY | 2024-07-31 13:44 | XMS_ITS ---
Author Organization [facility] Address [address] [place] [address] Care Team Providers Care Weigher And Charger Name Role Phone Janelle Kaur Unavailable [phone] REASON FOR VISIT 3m f/u w pvr Encounters Encounter Location Date Provider Diagnosis [facility] [address] [place] [address] [address] [place] [address] 06/24/2024 Janelle Kaur Plan Of Treatment No Information Progress Notes * ELINOR LOPEZDOB: (88 yo M)Acc No.[id number]:06/24/2024 Progress Notes Patient:?ELINOR LOPEZ Provider:?ELVIA Hsieh :1935???Age:88 Y???Sex:Male Narayan e:06/24/2024 Address:[address] [place], [place] [id number] Subjective: * Chief Complaints: * ???1. 3m f/u w pvr. * Medical History:? Objective: * Vitals:? Assessment: Plan: * Treatment: * Billing Information: * Visit Code:? * Procedure Codes:? * Electronic signature of ELVIA Dodge on 07/31/2024 at 01:44 PM TUBE SKIVER Sign off status: Pending * Provider:?ELVIA Hsieh Date:?06/24/2024 Generated for Printi ng/Famagdalenog/eTransmitting on:?07/31/2024 01:44 PM TUBE SKIVER
--- OUTSIDE RECORDS SUMMARY | 2024-07-31 13:44 | XMS_ITS | Patient Health Record ---
Author Organization [facility] Address [address] [place] [address] Care Team Providers Care Musculoskeletal Physiotherapist Name Role Phone Migration, Provider Unavailable Unavailable Mello Wall Unavailable [phone] Janelle Kaur Unavailable Reason For Referral No Information Medications Medication SIG (Take, Route, Frequency, Duration) Notes Start Date End Date Status hydroCHLOROthiazide 25 MG Oral 10/08/2023 Active Aspirin 81 81 MG Oral 10/08/2023 Ac tive Hydralazine Hydrochloride 10 MG Oral Tablet ORAL *Reorder from [facility] for eRx and Interaction Alerts* 09/23/2023 Active LORazepam 1 MG Oral Tablet ORAL *Reorder from [facility] for eRx and Interaction Alerts* 09/23/2023 Active Metoprolol Tartrate 100 MG Oral Tablet ORAL *Reorder from [facility] for eRx and Interaction Alerts* 09/23/2023 Active Famotidine 20 MG Oral Tablet ORAL *Reorder from [facility] for eRx and Interaction Alerts* 10/08/2023 Active Acetaminophen 500 MG Oral Tablet ORAL *Reorder from [facility] for eRx and Interaction Alerts* 10/08/2023 Active OXcarbazepine 300 MG Oral Tablet ORAL *[facility] and Interaction Alerts* 09/23/2023 Active Losartan Potassium 100 MG Oral Tablet ORAL *[facility] and Interaction Alerts* 09/23/2023 Active Vital Signs Temperature 97.8 degrees Fahrenheit 10/08/2023 Height-cm 157.48 cm 10/08/2023 Weight-kg 56.34 kg 10/08/2023 Height 62.00 in 10/08/2023 Weight 124.208 lbs 10/08/2023 BMI 22.7 kg/m2 10/08/2023 Encounters Encounter Location Date Provider Diagnosis [facility] 0 0 09/23/2023 Provider Migration [facility] 0 0 10/08/2023 Provider Migration [facility] 0 0 12/13/2023 Provider Migration [facility] 0 0 12/14/2023 Provider Migration [facility] [address] [place] [address] 02/27/2024 Mello Wall [facility] [address] [place] [address] [address] [place] [address] 07/20/2024 Mello Wall Plan Of Treatment No Information
--- OUTSIDE RECORDS SUMMARY | 2024-07-31 13:44 | XMS_ITS ---
Author Organization [employer] [employer] Address [address] [facility] [place] [address] Care Team Providers Care Coal Or Ore Controller Name Role Phone ZAY VELEZ Unavailable [phone] REASON FOR VISIT Urinary Retention/ UTI/ BPH- Unable to reach x2 Encounters Encounter Location Date Provider Diagnosis [facility] [employer] [address] [facility] [place] [address] 07/08/2023 ZAY VELEZ Plan Of Treatment No Information Progress Notes * Alessandro DURAN WDOB: [birth year] (87 yo M)Acc No.[id number]:07/08/2023 Patient:?Alessandro DURAN :1935???Age:87 Y???Sex:Male Address:[address], [address], [place] [address] * true * Date:? Generated for Printi ng/Faxing/eTransmitting on:?07/31/2024 01:44 PM BEACH PATROL LIEUTENANT
--- OUTSIDE RECORDS SUMMARY | 2024-07-31 13:45 | XMS_ITS ---
Author Organization [facility] Address [address] [place] [address] Care Team Providers Care Court Assistant Name Role Phone Mello Wall Unavailable [phone] Encounters Encounter Location Date Provider Diagnosis [facility] [address] [place] [address] [address] [place] [address] 07/20/2024 Mello Wall Plan Of Treatment No Information Progress Notes * ELINOR LOPEZDOB: (88 yo M)Acc No.[id number]:07/20/2024 Patient:?ELINOR LOPEZ :1935???Age:88 Y???Sex:Male Address:[address] [place] [address], [address] * true * Date:? Generated for Sharoni katlyn/Sangeetag/eTransmitting on:?07/31/2024 01:45 PM BATCH FREEZER
--- OUTSIDE RECORDS SUMMARY | 2024-07-31 13:45 | XMS_ITS | Patient Health Record ---
Author Organization [facility] Address [address] [place] [address] Care Team Providers Care Griddle Cook Name Role Phone ZAY VELEZ Unavailable [phone] Reason For Referral No Information Plan Of Treatment No Information Insurance Providers Payer Name Payer Address Payer Phone Subscriber Number Group Number Insured Name Patient Relationship to Insured Coverage Start Date Coverage End Date [employer] Medicare Supplement [address] [address] [place], [place] [id number] Alessandro Duran Self - patient is the insured
--- OUTSIDE RECORDS SUMMARY | 2024-07-31 13:45 | XMS_ITS ---
Author Organization [facility] Address [address] [place] [address] Care Team Providers Care Wastewater Supervisor Name Role Phone Janelle Kaur Unavailable [phone] REASON FOR VISIT 3m f/u w pvr Encounters Encounter Location Date Provider Diagnosis [facility] [address] [place] [address] [address] [place] [address] 07/21/2024 Janelle Kaur Plan Of Treatment No Information Progress Notes * ELINOR LOPEZDOB: (88 yo M)Acc No.[id number]:07/21/2024 Progress Notes Patient:?ELINOR LOPEZ Provider:?ELVIA Hsieh :1935???Age:88 Y???Sex:Male Narayan e:07/21/2024 Address:[address] [place], [place] [id number] Subjective: * Chief Complaints: * ???1. 3m f/u w pvr. * Medical History:? Objective: * Vitals:? Assessment: Plan: * Treatment: * Billing Information: * Visit Code:? * Procedure Codes:? * Electronic signature of ELVIA Dodge on 07/31/2024 at 01:45 PM CLEAN[employer] EQUIPMENT Sign off status: Pending * Provider:?ELVIA Hsieh Date:?07/21/2024 Generated for Printi ng/Famagdalenog/eTransmitting on:?07/31/2024 01:45 PM CLEANER LABORATORY EQUIPMENT
--- OUTSIDE RECORDS SUMMARY | 2024-07-31 13:46 | XMS_ITS ---
Author Organization [facility] are Address Unknown Allergies, Adverse Reactions, Alerts Substance Reaction Status Noted Date Resolved Date Penicillins active 07/11/2023 Amoxicillin active 03/21/2023 Problems Problem Status Start Date End Date ENCEPHALOPATHY, UNSPECIFIED (Primary) (G93.40 - ICD-10-CM) ACTIVE 07/11/2023 URINARY TRACT INFECTION, SIT E NOT SPECIFIED (N39.0 - ICD-10-CM) ACTIVE 07/11/2023 SEVERE SEPSIS WITH SEPTIC SHOCK (R65.21 - ICD-10-CM) A CTIVE 07/11/2023 ACUTE KIDNEY FAILURE, UNSPECIFIED (N17.9 - ICD-10-CM) ACTIVE 07/11/2023 GASTRO-ESOPHAGEAL REFLUX DIS EASE WITHOUT ESOPHAGITIS (K21.9 - ICD-10-CM) ACTIVE 07/15/2023 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 (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 - ICD-10-CM) ACTIVE 07/11/2023 ERYTHEMA INTERTRIGO (L30.4 - ICD-10-CM) ACTIVE 0 07/11/2023 URINARY TRACT INFECTION, SIT E NOT SPECIFIED (N39.0 - ICD-10-CM) RESOLVED 03/21/2023 07/08/2023 PULMONARY HYPERTENSION, UNSP ECIFIED (I27.20 - ICD-10-CM) ACTIVE 03/21/2023 UNSPECIFIED DIASTOLIC (CONGE STIVE) HEART FAILURE (I50.30 - ICD-10-CM) ACTIVE 03/21/2023 PERSONAL HISTORY OF OTHER DI SEASES OF THE NERVOUS SYSTEM AND SENSE ORGANS (Z86.69 - ICD-10-CM) ACTIVE 03/21/2023 ANXIETY DISORDER, UNSPECIFIED (F41.9 - ICD-10-CM) ACTI VE 03/21/2023 CEREBROVASCULAR DISEASE, 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) ACTIVE 03/21/2023 EPILEPSY, UNSPECIFIED, NOT I NTRACTABLE, WITHOUT STATUS EPILEPTICUS (G40.909 - ICD-10-CM) ACTIVE 03/21/2023 HYPERLIPIDEMIA, UNSPECIFIED (E78.5 - ICD-10-CM) ACTIVE 03/21/2023 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) ACTIVE 03/21/2023 ESSENTIAL (PRIMARY) HYPERTENSION (I10 - ICD-10-CM) ACT NATACHA 03/21/2023 VITAMIN DEFICIENCY, UNSPECIFIED (E56.9 - ICD-10-CM) AC TIVE 03/21/2023 ENCOUNTER FOR IMMUNIZATION (Z23 - ICD-10-CM) ACTIVE 03/21/2023 PAIN, UNSPECIFIED (R52 - ICD-10-CM) ACTIVE 03/21 CONSTIPATION, UNSPECIFIED (K59.00 - ICD-10-CM) ACTIVE 03/21/2023 LOCALIZED EDEMA (R60.0 - ICD-10-CM) ACTIVE 03/21 CHRONIC OBSTRUCTIVE PULMONAR Y DISEASE WITH (ACUTE) EXACERBATION (J44.1 - ICD-10-CM) ACTIVE 03/21/2023 UNSPECIFIED GLAUCOMA (H40.9 - ICD-10-CM) ACTIVE 03/21/2023 SEPSIS, UNSPECIFIED ORGANISM (A41.9 - ICD-10-CM) ACTIV E 03/21/2023 BENIGN PROSTATIC HYPERPLASIA WITH LOWER URINARY TRACT SYMPTOMS (N40.1 - ICD-10-CM) ACTIVE 03/21/2023 TYPE 2 DIABETES MELLITUS WIT HOUT COMPLICATIONS (E11.9 - ICD-10-CM) RESOLVED 03/21/2023 03/21/2023 Results * BMP Performed by: [facility] [address] [facility] [address] Component Value Range Date Estimated GFR >60.0 mL/min/1.73sq.m >60.0 08/08 10:14 pm EST Estimated GFR AA >60.0 mL/min/1.73sq.m >60.0 10:14 pm EST CREATININE 0.67 mg/dL 0.6-1.3 08/08/2023 10:1 4 pm EST GLUCOSE 86 mg/dL 74-109 08/08/2023 10:1 4 pm EST BLOOD UREA NITROGEN (BUN) 20.1 mg/dL 7.0-25.0 10:14 pm EST CALCIUM 8.5 mg/dL 8.6-10.2 08/08/2023 10:1 4 pm EST POTASSIUM 5.0 mEq/L 3.5-5.1 08/08/2023 10:1 4 pm EST SODIUM 140 mEq/L 136-145 08/08/2023 10:1 4 pm EST ANION GAP 17.0 mEq/L 8-16 08/08/2023 10:1 4 pm EST CARBON DIOXIDE (BICARB) 24 mEq/L 21-31 07/24 10:14 pm EST CHLORIDE 104 mEq/L 98-107 08/08/2023 10:1 4 pm EST BUN/CREAT RATIO 30.0 CALC 10-20 08/08/2023 1 0:14 pm EST * Individual Tests: BMP / Cogent- Performed by: [facility] [address] [place] [phone] Component Value Range Date Cogent- See Attachment 08/08/2023 10 :14 pm EST * Individual Tests: Complete Blood Count / CMP / STAT / Cogent- Performed by: [facility] [address] [place] [address] Component Value Range Date STAT Completed - 08/05/2023 03:2 1 pm EST Cogent- See Attachment 08/05/2023 03 :21 pm EST * CMP Performed by: [facility] [address] [place] [address] Component Value Range Date BUN/CREAT RATIO 31.2 CALC 10-20 08/05/2023 0 3:21 pm EST * Complete Blood Count Performed by: [facility] [address] [place] [address] Component Value Range Date HGB 11.1 g/dL 13.7-17.5 08/05/2023 03:2 1 pm EST MCHC 31.9 g/dL 32.3-36.5 08/05/2023 03:2 1 pm EST * CMP Performed by: [facility] [address] [place] [address] Component Value Range Date TOTAL PROTEIN 6.6 g/dL 6.4-8.9 08/05/2023 03: 21 pm EST GLOBULIN, Calculated 3.4 g/dL 1.9-3.7 024 03:21 pm EST ALBUMIN 3.2 g/dL 3.5-5.7 08/05/2023 03:2 1 pm EST * Complete Blood Count Performed by: [facility] [address] [place] [address] Component Value Range Date MCV 91.8 fL 79.0-92.2 08/05/2023 03:2 1 pm EST MPV 9.4 fL 9.4-12.4 08/05/2023 03:2 1 pm EST HCT 34.8 % 40.1-51.0 08/05/2023 03:2 1 pm EST EOS% 3.0 % 0.8-7.0 08/05/2023 03:2 1 pm EST BASO% 0.6 % 0.2-1.2 08/05/2023 03:2 1 pm EST NEUT% 66.8 % 34.0-67.9 08/05/2023 03:2 1 pm EST LYMPH% 23.1 % 21.8-53.1 08/05/2023 03:2 1 pm EST MONO% 6.1 % 5.3-12.2 08/05/2023 03:2 1 pm EST RDW 14.1 % 11.6-14.4 08/05/2023 03:2 1 pm EST * CMP Performed by: [facility] [address] [place] [address] Component Value Range Date SODIUM 151 mEq/L 136-145 08/05/2023 03:2 1 pm EST POTASSIUM 3.3 mEq/L 3.5-5.1 08/05/2023 03:2 1 pm EST CHLORIDE 99 mEq/L 98-107 08/05/2023 03:2 1 pm EST CARBON DIOXIDE (BICARB) 33 mEq/L 21-31 0208/2023 03:21 pm EST ANION GAP 22.3 mEq/L 8-16 08/05/2023 03:2 1 pm EST ALKALINE PHOSPHATASE (ALP) 78 IU/L 34-104 0 08/05/2023 03:21 pm EST ALANINE AMINOTRANSFERASE (ALT) 50 IU/L 7-52 08/05/2023 03:21 pm EST ASPARTATE AMINOTRANSFERASE (AST) 45 IU/L 13-39 08/05/2023 03:21 pm EST * Complete Blood Count Performed by: [facility] [address] [place] [address] Component Value Range Date RBC 3.79 x10^6/uL 4.63-6.08 08/05/2023 03: 21 pm EST * CMP Performed by: [facility] [address] [place] [address] Component Value Range Date GLUCOSE 107 mg/dL 74-109 08/05/2023 03:2 1 pm EST CALCIUM 9.6 mg/dL 8.6-10.2 08/05/2023 03:2 1 pm EST TOTAL BILIRUBIN 0.6 mg/dL 0.3-1.0 08/05/2023 0 3:21 pm EST BLOOD UREA NITROGEN (BUN) 25.0 mg/dL 7.0-25.0 03:21 pm EST CREATININE 0.80 mg/dL 0.6-1.3 08/05/2023 03:2 1 pm EST A/G RATIO 0.9 RATIO 0.8-2.0 08/05/2023 03:2 1 pm EST Estimated GFR >60.0 mL/min/1.73sq.m >60.0 08/05 03:21 pm EST Estimated GFR AA >60.0 mL/min/1.73sq.m >60.0 03:21 pm EST * Complete Blood Count Performed by: [facility] [address] [place] [address] Component Value Range Date MCH 29.3 pg 25.7-32.2 08/05/2023 03:2 1 pm EST WBC 7.01 x10^3/uL 4.23-9.07 08/05/2023 03: 21 pm EST NEUT# 4.68 x10^3/uL 1.78-5.38 08/05/2023 03: 21 pm EST LYMPH# 1.62 x10^3/uL 1.32-3.57 08/05/2023 03: 21 pm EST PLT 273 x10^3/uL 163-337 08/05/2023 03:2 1 pm EST MONO# 0.43 x10^3/uL 0.30-0.82 08/05/2023 03: 21 pm EST EOS# 0.21 x10^3/uL 0.04-0.54 08/05/2023 03: 21 pm EST BASO# 0.04 x10^3/uL 0.01-0.08 08/05/2023 03: 21 pm EST * BMP Performed by: [facility] [address] [place] [address] Component Value Range Date CREATININE 0.69 mg/dL 0.6-1.3 08/04/2023 11:2 5 pm EST GLUCOSE 100 mg/dL 74-109 08/04/2023 11:2 5 pm EST BLOOD UREA NITROGEN (BUN) 25.4 mg/dL 7.0-25.0 11:25 pm EST CALCIUM 8.5 mg/dL 8.6-10.2 08/04/2023 11:2 5 pm EST Estimated GFR >60.0 mL/min/1.73sq.m >60.0 08/04 11:25 pm EST Estimated GFR AA >60.0 mL/min/1.73sq.m >60.0 11:25 pm EST POTASSIUM 3.5 mEq/L 3.5-5.1 08/04/2023 11:2 5 pm EST SODIUM 143 mEq/L 136-145 08/04/2023 11:2 5 pm EST ANION GAP 8.5 mEq/L 8-16 08/04/2023 11:2 5 pm EST CARBON DIOXIDE (BICARB) 40 mEq/L 21-31 07/24 11:25 pm EST CHLORIDE 98 mEq/L 98-107 08/04/2023 11:2 5 pm EST * Individual Tests: BMP / Cogent- Performed by: [facility] [address] [place] [address] Component Value Range Date Cogent- See Attachment 08/04/2023 11 :25 pm EST * BMP Performed by: [facility] [address] [place] [address] Component Value Range Date BUN/CREAT RATIO 36.8 CALC 10-20 08/04/2023 1 1:25 pm EST * Complete Blood Count Performed by: [facility] [address] [place] [address] Component Value Range Date MCV 87.7 fL 79.0-92.2 07/31/2023 04:1 9 am EST MPV 9.8 fL 9.4-12.4 07/31/2023 04:1 9 am EST * BMP Performed by: [facility] [address] [place] [address] Component Value Range Date BUN/CREAT RATIO 46.6 CALC 10-20 07/31/2023 0 4:19 am EST * Complete Blood Count Performed by: [facility] [address] [place] [address] Component Value Range Date HGB 11.0 g/dL 13.7-17.5 07/31/2023 04:1 9 am EST MCHC 33.7 g/dL 32.3-36.5 07/31/2023 04:1 9 am EST * Individual Tests: BMP / Complete Blood Count / Cogent- Performed by: [facility] [address] [place] [address] Component Value Range Date Cogent- See Attachment 07/31/2023 04 :19 am EST * Complete Blood Count Performed by: [facility] [address] [place] [address] Component Value Range Date HCT 32.6 % 40.1-51.0 07/31/2023 04:1 9 am EST EOS% 0.5 % 0.8-7.0 07/31/2023 04:1 9 am EST BASO% 1.0 % 0.2-1.2 07/31/2023 04:1 9 am EST NEUT% 67.1 % 34.0-67.9 07/31/2023 04:1 9 am EST LYMPH% 23.2 % 21.8-53.1 07/31/2023 04:1 9 am EST MONO% 8.2 % 5.3-12.2 07/31/2023 04:1 9 am EST RDW 15.1 % 11.6-14.4 07/31/2023 04:1 9 am EST * BMP Performed by: [facility] [address] [place] [address] Component Value Range Date POTASSIUM 3.3 mEq/L 3.5-5.1 07/31/2023 04:1 9 am EST SODIUM 145 mEq/L 136-145 07/31/2023 04:1 9 am EST ANION GAP 12.3 mEq/L 8-16 07/31/2023 04:1 9 am EST CARBON DIOXIDE (BICARB) 34 mEq/L 21-31 02/01/2024 04:19 am EST CHLORIDE 102 mEq/L 98-107 07/31/2023 04:1 9 am EST Estimated GFR >60.0 mL/min/1.73sq.m >60.0 07/31 04:19 am EST Estimated GFR AA >60.0 mL/min/1.73sq.m >60.0 04:19 am EST * Complete Blood Count Performed by: [facility] [address] [place] [address] Component Value Range Date WBC 5.1 x10^3/uL 4.23-9.07 07/31/2023 04:1 9 am EST PLT 177 x10^3/uL 163-337 07/31/2023 04:1 9 am EST MONO# 0.4 x10^3/uL 0.30-0.82 07/31/2023 04:1 9 am EST EOS# 0.0 x10^3/uL 0.04-0.54 07/31/2023 04:1 9 am EST BASO# 0.1 x10^3/uL 0.01-0.08 07/31/2023 04:1 9 am EST NEUT# 3.4 x10^3/uL 1.78-5.38 07/31/2023 04:1 9 am EST LYMPH# 1.2 x10^3/uL 1.32-3.57 07/31/2023 04:1 9 am EST RBC 3.72 x10^6/uL 4.63-6.08 07/31/2023 04: 19 am EST * BMP Performed by: [facility] [address] [place] [address] 13492 Component Value Range Date CREATININE 0.79 mg/dL 0.6-1.3 07/31/2023 04:1 9 am EST GLUCOSE 101 mg/dL 74-109 07/31/2023 04:1 9 am EST BLOOD UREA NITROGEN (BUN) 36.8 mg/dL 7.0-25.0 04:19 am EST CALCIUM 8.9 mg/dL 8.6-10.2 07/31/2023 04:1 9 am EST * Complete Blood Count Performed by: [facility] [address] [place] [address]54 Component Value Range Date MCH 29.5 pg 25.7-32.2 07/31/2023 04:1 9 am EST * Complete Blood Count Performed by: [facility] [address] [place] [address] Component Value Range Date MPV 9.3 fL 9.4-12.4 07/23/2023 10:5 0 pm EST MCV 87.4 fL 79.0-92.2 07/23/2023 10:5 0 pm EST MCH 30.0 pg 25.7-32.2 07/23/2023 10:5 0 pm EST * BMP Performed by: [facility] [address] [place] [address]27 Component Value Range Date Estimated GFR >60.0 mL/min/1.73sq.m >60.0 07/23 10:50 pm EST Estimated GFR AA >60.0 mL/min/1.73sq.m >60.0 10:50 pm EST * Complete Blood Count Performed by: [facility] [address] [place] [address]60 Component Value Range Date MONO# 0.4 x10^3/uL 0.30-0.82 07/23/2023 10:5 0 pm EST EOS# 0.1 x10^3/uL 0.04-0.54 07/23/2023 10:5 0 pm EST BASO# 0.0 x10^3/uL 0.01-0.08 07/23/2023 10:5 0 pm EST PLT 193 x10^3/uL 163-337 07/23/2023 10:5 0 pm EST NEUT# 1.6 x10^3/uL 1.78-5.38 07/23/2023 10:5 0 pm EST LYMPH# 1.4 x10^3/uL 1.32-3.57 07/23/2023 10:5 0 pm EST WBC 3.6 x10^3/uL 4.23-9.07 07/23/2023 10:5 0 pm EST RBC 3.28 x10^6/uL 4.63-6.08 07/23/2023 10: 50 pm EST * BMP Performed by: [facility] [address] [place] [id number] Component Value Range Date CARBON DIOXIDE (BICARB) 27 mEq/L 21-31 06/25 10:50 pm EST CHLORIDE 109 mEq/L 98-107 07/23/2023 10:5 0 pm EST POTASSIUM 4.2 mEq/L 3.5-5.1 07/23/2023 10:5 0 pm EST SODIUM 143 mEq/L 136-145 07/23/2023 10:5 0 pm EST ANION GAP 11.2 mEq/L 8-16 07/23/2023 10:5 0 pm EST CREATININE 0.75 mg/dL 0.6-1.3 07/23/2023 10:5 0 pm EST GLUCOSE 84 mg/dL 74-109 07/23/2023 10:5 0 pm EST BLOOD UREA NITROGEN (BUN) 22.2 mg/dL 7.0-25.0 10:50 pm EST CALCIUM 8.0 mg/dL 8.6-10.2 07/23/2023 10:5 0 pm EST * Complete Blood Count Performed by: [facility] [address] [place] [address] 80130 Component Value Range Date HGB 9.8 g/dL 13.7-17.5 07/23/2023 10:5 0 pm EST MCHC 34.3 g/dL 32.3-36.5 07/23/2023 10:5 0 pm EST * Individual Tests: BMP / Complete Blood Count / Cogent- Performed by: [facility] [address] [place] [address]142 Component Value Range Date Cogent- See Attachment 07/23/2023 10 :50 pm EST * Complete Blood Count Performed by: [facility] [address] [place] [address] 56967 Component Value Range Date HCT 28.7 % 40.1-51.0 07/23/2023 10:5 0 pm EST EOS% 3.7 % 0.8-7.0 07/23/2023 10:5 0 pm EST BASO% 1.2 % 0.2-1.2 07/23/2023 10:5 0 pm EST NEUT% 45.2 % 34.0-67.9 07/23/2023 10:5 0 pm EST LYMPH% 38.6 % 21.8-53.1 07/23/2023 10:5 0 pm EST MONO% 11.3 % 5.3-12.2 07/23/2023 10:5 0 pm EST RDW 14.9 % 11.6-14.4 07/23/2023 10:5 0 pm EST * BMP Performed by: [facility] [address] [place] [address] 40163 Component Value Range Date BUN/CREAT RATIO 29.6 CALC 10-20 07/23/2023 1 0:50 pm EST * CMP Performed by: [facility] [address] [place] [address] 05234 Component Value Range Date TOTAL PROTEIN 5.5 g/dL 6.4-8.9 07/16/2023 07: 52 am EST GLOBULIN, Calculated 2.3 g/dL 1.9-3.7 024 07:52 am EST ALBUMIN 3.2 g/dL 3.5-5.7 07/16/2023 07:5 2 am EST BUN/CREAT RATIO 35.9 CALC 10-20 07/16/2023 0 7:52 am EST * Complete Blood Count Performed by: [facility] [address] [place] [address] 95934 Component Value Range Date HGB 10.7 g/dL 13.7-17.5 07/16/2023 07:5 2 am EST MCHC 34.7 g/dL 32.3-36.5 07/16/2023 07:5 2 am EST MCV 87.0 fL 79.0-92.2 07/16/2023 07:5 2 am EST MPV 9.5 fL 9.4-12.4 07/16/2023 07:5 2 am EST * Individual Tests: Complete Blood Count / CMP / Lipid Panel / TSH / Cogent- Performed by: [facility] [address] [place] [address] 19161 Component Value Range Date Cogent- See Attachment 07/16/2023 07 :52 am EST * Complete Blood Count Performed by: [facility] [address] [place] [address] 54522 Component Value Range Date RDW 14.5 % 11.6-14.4 07/16/2023 07:5 2 am EST EOS% 1.6 % 0.8-7.0 07/16/2023 07:5 2 am EST BASO% 1.1 % 0.2-1.2 07/16/2023 07:5 2 am EST NEUT% 67.9 % 34.0-67.9 07/16/2023 07:5 2 am EST LYMPH% 22.1 % 21.8-53.1 07/16/2023 07:5 2 am EST MONO% 7.3 % 5.3-12.2 07/16/2023 07:5 2 am EST HCT 30.8 % 40.1-51.0 07/16/2023 07:5 2 am EST * CMP Performed by: [facility] [address] [place] [address] 31761 Component Value Range Date SODIUM 147 mEq/L 136-145 07/16/2023 07:5 2 am EST POTASSIUM 4.2 mEq/L 3.5-5.1 07/16/2023 07:5 2 am EST CHLORIDE 109 mEq/L 98-107 07/16/2023 07:5 2 am EST CARBON DIOXIDE (BICARB) 36 mEq/L 21-31 06/24 07:52 am EST ANION GAP 6.2 mEq/L 8-16 07/16/2023 07:5 2 am EST * Complete Blood Count Performed by: [facility] [address] [place] [address] 21553 Component Value Range Date RBC 3.54 x10^6/uL 4.63-6.08 07/16/2023 07: 52 am EST * CMP Performed by: [facility] [address] [place] [address] 99739 Component Value Range Date ALKALINE PHOSPHATASE (ALP) 73 IU/L 34-104 0 07/16/2023 07:52 am EST ALANINE AMINOTRANSFERASE (ALT) 21 IU/L 7-52 07/16/2023 07:52 am EST ASPARTATE AMINOTRANSFERASE (AST) 21 IU/L 13-39 07/16/2023 07:52 am EST * Individual Tests: Complete Blood Count / CMP / Lipid Panel / TSH / Cogent- Performed by: [facility] [address] [place] [address] 12394 Component Value Range Date THYROID-STIMULATING HORMONE (TSH) 1.70 uIU/mL 0.45-5. 33 07/16/2023 07:52 am EST * Complete Blood Count Performed by: [facility] [address] [place] [address] 66663 Component Value Range Date WBC 5.3 x10^3/uL 4.23-9.07 07/16/2023 07:5 2 am EST PLT 255 x10^3/uL 163-337 07/16/2023 07:5 2 am EST MONO# 0.4 x10^3/uL 0.30-0.82 07/16/2023 07:5 2 am EST EOS# 0.1 x10^3/uL 0.04-0.54 07/16/2023 07:5 2 am EST BASO# 0.1 x10^3/uL 0.01-0.08 07/16/2023 07:5 2 am EST * Lipid Panel Performed by: [facility] [address] [place] [address] 02607 Component Value Range Date CHOLESTEROL, TOTAL 145.4 mg/dL <200 mg/dL 07:52 am EST HDL 53 mg/dL >40 mg/dL 07/16/2023 07:5 2 am EST TRIGLYCERIDES 67 mg/dL <150 mg/dL 07/16/2023 07: 52 am EST LDL (CALCULATED) 79 mg/dL <100 mg/dL 07/16/2023 07:52 am EST * CMP Performed by: [facility] [address] [place] [address] 56498 Component Value Range Date GLUCOSE 97 mg/dL 74-109 07/16/2023 07:5 2 am EST CALCIUM 8.4 mg/dL 8.6-10.2 07/16/2023 07:5 2 am EST TOTAL BILIRUBIN 0.3 mg/dL 0.3-1.0 07/16/2023 0 7:52 am EST BLOOD UREA NITROGEN (BUN) 21.9 mg/dL 7.0-25.0 07:52 am EST CREATININE 0.61 mg/dL 0.6-1.3 07/16/2023 07:5 2 am EST * Complete Blood Count Performed by: [facility] [address] [place] [address] 95637 Component Value Range Date NEUT# 3.6 x10^3/uL 1.78-5.38 07/16/2023 07:5 2 am EST LYMPH# 1.2 x10^3/uL 1.32-3.57 07/16/2023 07:5 2 am EST * CMP Performed by: [facility] [address] [place] [address] 80681 Component Value Range Date Estimated GFR >60.0 mL/min/1.73sq.m >60.0 07/16 07:52 am EST Estimated GFR AA >60.0 mL/min/1.73sq.m >60.0 07:52 am EST A/G RATIO 1.4 RATIO 0.8-2.0 07/16/2023 07:5 2 am EST * Complete Blood Count Performed by: [facility] [address] [facility] [address] Component Value Range Date MCH 30.2 pg 25.7-32.2 07/16/2023 07:5 2 am EST * Individual Tests: BMP / Report PDF [facility] [address] [facility] [address] [facility] [address] Component Value Range Date Report PDF See Attachment 03/31/2023 02 :41 pm EDT * BMP Performed by: [facility] [address] [facility] [facility] [address] Component Value Range Date gfr - Non 111.9 >60.0 03/31/2023 02:41 pm EDT gfr - 135.5 >60.0 03/31/2023 02: 41 pm EDT Anion Gap 8.2 mg/dl 03/31/2023 02:4 1 pm EDT Calcium 8.7 mg/dl 8.5 - 10.2 03/31/2023 02:4 1 pm EDT BUN 14 mg/dl 6 - 20 03/31/2023 02:4 1 pm EDT Creatinine 0.67 mg/dl 0.90 - 1.30 03/31/2023 02:4 1 pm EDT Glucose 89 mg/dl 70 - 105 03/31/2023 02:4 1 pm EDT CO2 30.0 mEq/L 23.0 - 29.0 03/31/2023 02:4 1 pm EDT Sodium 138.6 mmol/L 136.0 - 145.0 03/31/2023 02: 41 pm EDT Potassium 4.31 mmol/L 3.50 - 5.10 03/31/2023 02:4 1 pm EDT Chloride 100.4 mmol/L 98.0 - 107.0 03/31/2023 02:4 1 pm EDT * Individual Tests: Lipid / TSH / Report PDF Performed by: [facility] Component Value Range Date Lipid Final Report 03/25/2023 10:5 3 am EDT TSH Final Report 03/25/2023 10:5 3 am EDT Report PDF See Attachment 03/25/2023 10 :53 am EDT * CBC with Auto Diff Performed by: [facility] [address] [facility] [facility] [address] Component Value Range Date MCH 29.6 pg 27.0 - 32.0 03/24/2023 05:4 7 pm EDT MPV 10.9 fL 8.9 - 12.8 03/24/2023 05:4 7 pm EDT MCV 90.1 fL 80.0 - 100.0 03/24/2023 05:4 7 pm EDT * CMP Performed by: [facility] Laboratory Services [address] [place] [address] [place] [address] [place] [address] Component Value Range Date Alk phosphate 101 u/l 44 - 147 03/24/2023 05: 47 pm EDT AST 50 u/l 7 - 03/24/2023 05:4 7 pm EDT ALT 53 u/l 5 - 30 03/24/2023 05:4 7 pm EDT Anion Gap 10.3 mg/dl 03/24/2023 05:4 7 pm EDT Calcium 8.4 mg/dl 8.5 - 10.2 03/24/2023 05:4 7 pm EDT BUN 17 mg/dl 6 - 20 03/24/2023 05:4 7 pm EDT Creatinine 0.58 mg/dl 0.90 - 1.30 03/24/2023 05:4 7 pm EDT Glucose 81 mg/dl 70 - 105 03/24/2023 05:4 7 pm EDT bilirubin total 0.5 mg/dl 0.3 - 1.2 03/24/2023 0 5:47 pm EDT Sodium 146.2 mmol/L 136.0 - 145.0 03/24/2023 05: 47 pm EDT Potassium 3.23 mmol/L 3.50 - 5.10 03/24/2023 05:4 7 pm EDT Chloride 109.2 mmol/L 98.0 - 107.0 03/24/2023 05:4 7 pm EDT * Individual Tests: CMP / CBC with Auto Diff / Report PDF Performed by: [facility] Laboratory Services [address] [place] [address] [place] [address] Component Value Range Date Report PDF See Attachment 03/24/2023 05 :47 pm EDT * CMP Performed by: [facility] Laboratory Services [address] [place] [address] [place] [address] Component Value Range Date gfr - Non 132.2 >60.0 03/24/2023 05:47 pm EDT gfr - 160.0 >60.0 03/24/2023 05: 47 pm EDT * CBC with Auto Diff Performed by: [facility] [address] [address] Component Value Range Date CHELSY% 72.1 % <99.9 03/24/2023 05:4 7 pm EDT LYM% 18.2 % <99.9 03/24/2023 05:4 7 pm EDT MON% 5.9 % <99.9 03/24/2023 05:4 7 pm EDT EOS% 2.6 % 0.0 - 99.9 03/24/2023 05:4 7 pm EDT BAS% 0.6 % 0.0 - 99.9 03/24/2023 05:4 7 pm EDT IG% 0.60 % 03/24/2023 05:4 7 pm EDT CHELSY# 5.00 10*3/uL 2.00 - 7.50 03/24/2023 05:4 7 pm EDT LYM# 1.26 10*3/uL 1.00 - 4.00 03/24/2023 05:4 7 pm EDT MON# 0.41 10*3/uL 0.20 - 1.00 03/24/2023 05:4 7 pm EDT EOS# 0.18 10*3/uL 0.00 - 0.50 03/24/2023 05:4 7 pm EDT BAS# 0.04 10*3/uL 0.00 - 0.20 03/24/2023 05:4 7 pm EDT IG# 0.04 10*3/uL 0.00 - 0.10 03/24/2023 05:4 7 pm EDT WBC 6.9 10*3/uL 4.0 - 10.0 03/24/2023 05:4 7 pm EDT PLT 156.0 10*3/uL 150.0 - 500.0 03/24/2023 05 :47 pm EDT RBC 3.7 10*6/uL 3.8 - 6.5 03/24/2023 05:4 7 pm EDT RDW-CV 13.30 % 11.80 - 14.50 03/24/2023 05: 47 pm EDT HCT 32.9 % 37.0 - 54.0 03/24/2023 05:4 7 pm EDT RDW-SD 43.90 fL 39.00 - 46.00 03/24/2023 05: 47 pm EDT MCHC 32.8 g/dl 32.0 - 36.0 03/24/2023 05:4 7 pm EDT HGB 10.8 g/dl 11.5 - 17.0 03/24/2023 05:4 7 pm EDT * CMP Performed by: [facility] [address] [facility] [address] [facility] [address] Component Value Range Date Total Protein 5.60 g/dl 6.40 - 8.30 03/24/2023 05: 47 pm EDT Albumin 3.4 g/dl 3.5 - 5.2 03/24/2023 05:4 7 pm EDT CO2 26.7 mEq/L 23.0 - 29.0 03/24/2023 05:4 7 pm EDT * CHEST, 2 VIEW (AP, LAT) Performed by: [facility] [place] [address] [place] [id number] option 4 Component Value Range Date CHEST, 2 VIEW (AP, LAT) CHEST, 2 VIEW (A P, LAT):.Findings:See NoteChest: Frontal and lateral views of the chest submitted. No prior studies. No focal opacities or effusion. No pneumothorax. Chronic appearing linear interstitial prominence and hyperlucency likely chronic in nature. There is no pulmonary venous congestion. The cardiac silhouette size is not enlarged, with aortic calcifications. There is thoracic spondylosis..IMPRESSION:1. No acute cardiopulmonary finding.2. Chronic chest findings are present...Electronically Signed By: Dr. Didier Ramon 08/05/2023 04:07 pm EST * Report PDF Performed by: [employer] [address] [facility] [address] option 4 Component Value Range Date Report PDF See Attachment 08/05/2023 04 :07 pm EST Encounters Encounter Performer Performer Role Encounter Diagnoses Location Date Discharge - Discharged / Transferred to home under care of organized home health service organization - Home - Home/apt. with home health services [facility] 3 10:30 am EDT - 3 11:15 am EDT [facility] 4 01:23 pm EST - 4 06:47 pm EST Discharge - Discharged / Transferred to [facility] [place] [facility] 4 10:00 pm EST - 4 12:30 pm EST Reason For Referral Abnormal Pulse Oximetry (low oxygen saturation) Immunizations Vaccine Date Influenza TB 2 Step [place]oux Skin Test 03/21/2023 0 2:00 pm EDT SARS-COV-2 (COVID-19) 04/02/2021 01:00 a m EDT SARS-COV-2 (COVID-19) 06/28/2020 01:00 a m EST Prevnar 23 SARS - COV2 (Moderna) Booster Moderna Bivalent Social History
[2024-07-31] MEDS: meropenem 1,000 mg SDV 1000 MG IVP (15:53)
--- NOTE | 2024-07-31 16:39 | PHA.VACGOAL ---
Vancomycin Goal - Goal Vancomycin Goal:: 15-20 mg/L Vancomycin Indication:: Pneumonia (SEPSIS) - Therapy Current therapy:: Meropenem Day of therpy:: Day [1]of [] . Actual body weight (kg): 65.771 kg - Data Labs: WBC 2.60 10^3/uL (3.29-11.43) L 07/31/24 04:22 RBC 4.27 10^6/uL (3.85-5.65) 07/31/24 04:22 Hgb 12.50 g/dL (11.27-16.99) 07/31/24 04:22 Hct 38.5 % (37-53) 07/31/24 04:22 MCV 90.2 fl (82-101) 07/31/24 04:22 MCH 29.3 pg (27-33) 07/31/24 04:22 MCHC 32.5 g/dL (30-55) 07/31/24 04:22 RDW 12.6 % (12.1-15.1) 07/31/24 04:22 Sodium 141 mmol/L (136-145) 07/31/24 04:22 Potassium 2.9 mmol/L (3.5-5.1) L 07/31/24 04:22 Chloride 98 mmol/L (98-107) 07/31/24 04:22 Carbon Dioxide 30 mmol/L (22-29) H 07/31/24 04:22 Anion Gap 15.9 (5-19) 07/31/24 04:22 BUN 36 mg/dL (8-23) H 07/31/24 04:22 Creatinine 1.1 mg/dL (0.7-1.2) 07/31/24 04:22 GFR Calculation Not Reportable 07/31/24 04:22 Treatment plan:: new consult Regimen:: New start vancomycin for pneumonia/sepsis. No history of vancomycin found. Received 2000 mg load dose. Started on maintenance dose of 1000 mg q24h based on population based pharmacokinetic nomogram.
[2024-08-01] VITALS (13 sets, daily range): BP systolic 102–137; BP diastolic 62–81; PULSE 64–92; RESP 16–30; TEMP 36.4–36.9; O2SAT 91–99; BMI 20.2
[2024-08-01] MEDS: dilTIAZem 30 mg Tablet PO ×4 (00:37→17:49)
[2024-08-01 02:55] LABS: Basophils % 0.5 %; Hematocrit 33.9 % (37-53); Lymphocytes # 0.6 10^3/uL (0.8-4.8); Lymphocytes % 14.8 %; Mean Corpuscular HGB Conc 32.2 g/dL (30-55); Mean Corpuscular Hemoglobin 29.2 pg (27-33); Mean Corpuscular Volume 90.9 fl (82-101); Mean Platelet Volume 9.4 fL (7.4-10.4); Monocytes # 0.3 10^3/uL (0.2-0.9); Monocytes % 8.9 %; Neutrophils # 2.79 10^3/uL (1.8-7.7); Nucleated Red Blood Cells % 0 %; Platelet Count 143 10^3/cmm (157-399); Red Blood Count 3.73 10^6/uL (3.85-5.65); Red Cell Distribution Width 12.8 % (12.1-15.1); White Blood Count 3.72 10^3/uL (3.29-11.43)
[2024-08-01 03:13] LABS: Lactate (Lactic Acid level) 0.9 mmol/L (0.5-2.2)
[2024-08-01 03:17] LABS: Alanine Aminotransferase 16 U/L (0-41); Albumin Level 3.1 g/dL (3.5-5.2); Alkaline Phosphatase 75 U/L (40-130); Anion Gap 13.8 (5-19); Aspartate Amino Transferase 26 U/L (0-40); Blood Urea Nitrogen 42 mg/dL (8-23); C Reactive Protein 308.9 mg/L (0.0-4.9); Calcium 9.2 mg/dL (8.5-10.5); Carbon Dioxide 29 mmol/L (22-29); Chloride 107 mmol/L (98-107); Creatinine Clr Calc Pharmacy 55.9194; Globulin 2.4 g/dL (1.3-4.6); Glucose 133 mg/dL (65-115); Magnesium 2.1 mg/dL (1.7-2.3); Osmolality Calculated 314 mOsm/kg (285-295); Phosphorus 1.9 mg/dL (2.5-4.5); Potassium 3.8 mmol/L (3.5-5.1); Sodium 146 mmol/L (136-145); Total Bilirubin 0.4 mg/dL (0.15-1.2); Total Protein 5.5 g/dL (6.6-8.7)
[2024-08-01 03:24] LABS: NT Pro B Type Natriuretic Pept 1882 pg/mL (0-450)
[2024-08-01] MEDS: meropenem 1,000 mg SDV 1000 MG IVP ×2 (03:37→15:00)
[2024-08-01 03:38] LABS: Slide Review Slide Review Perform
[2024-08-01] MEDS: aspirin 81 mg Chew Tablet PO (05:45)
[2024-08-01] MEDS: CLONazepam 0.5 mg Tablet 0.25 MG PO (07:44)
[2024-08-01] MEDS: OXcarbazepine 300 mg Tablet PO ×2 (07:45→17:49)
[2024-08-01] MEDS: apixaban 5 mg Tablet PO ×2 (07:46→17:49)
[2024-08-01] MEDS: oseltamivir phosphate 30 mg Capsule PO ×2 (07:46→20:19)
[2024-08-01] MEDS: sertraline 100 mg Tablet PO (07:46)
[2024-08-01] MEDS: tamsulosin 0.4 mg Capsule PO (07:46)
[2024-08-01] MEDS: methylPREDNISolone sod succ 40 mg/mL INJ IVP ×2 (07:47→17:49)
[2024-08-01] MEDS: pantoprazole 40 mg SDV IVP (07:47)
[2024-08-01] MEDS: acetaminophen 325 mg Tablet 650 MG PO (08:05)
[2024-08-01] MEDS: budesonide 0.5 mg/2 mL Neb INHALATION ×2 (09:00→20:21)
[2024-08-01] MEDS: ipratropium-albuterol 3 mL Neb INHALATION ×2 (09:00→20:21)
--- NOTE | 2024-08-01 09:19 | P.PN_ITS ---
Subjective 2 Subjective: Patient was seen this morning alert to person, to place, not to time he follows commands, reports feeling weak fatigued persistent cough, no chest pain does report shortness of breath Vitals/I&O/Wt Last Vital Signs Temp 98.3 F 08/01/24 08:00 Pulse 84 08/01/24 08:00 Resp 28 H 08/01/24 08:00 BP 121/78 08/01/24 08:00 Pulse Ox 94 08/01/24 08:00 O2 Del Method Nasal Cannula 08/01/24 08:00 O2 Flow Rate 2 08/01/24 08:00 07/31/24 08/01/24 08/01/24 22:59 06:59 14:59 Intake Total 882.958 / 949.291 Balance 882.958 / 949.291 Weight last 48 hrs Weight 58.74 kg Weight 58.74 kg Weight 65.771 kg Physical Exam 2 Const: COMMON NORMALS: no acute distress ORIENTATION/CONSCIOUSNESS: Yes awake and Yes oriented to person; not oriented to time Lymph: LYMPHATIC: no lymphadenopathy noted Resp: COMMON NORMALS: normal respiratory effort, No retractions and No use of accessory muscles AUSCULTATION: crackles and wheezes Cardio: COMMON NORMALS: regular rate, regular rhythm, S1 normal heart sound present and S2 normal heart sound present RATE: regular rate RHYTHM: r egular rhythm HEART SOUNDS: S1 normal heart sound present and S2 normal heart sound present GI: COMMON NORMALS: Normal to inspection, nondistended, normoactive bowel sounds present and non-tender Extremity: COMMON NORMALS: no pedal edema Neuro: COMMON NORMALS: CN's II-XII intact bilaterally, moves all extremities and no focal motor deficits SENSORIUM/ORIENTATION: Yes oriented to person and No oriented to time Data 08/01/24 02:35 08/01/24 02:35 Micro: Microbiology 07/31/24 04:22 Blood Culture - Preliminary Blood Staphylococcus sp coag neg 07/31/24 04:45 Blood Culture - Preliminary Blood NEGATIVE TO DATE A&P Assessment and plan (1) Acute hypoxic respiratory failure: (2) Influenza A: (3) Sepsis: (4) Hyperlipidemia: (5) PINEDA (acute kidney injury): (6) Pneumonia: Qualifiers: Laterality: left Lung location: lower lobe of lung Pneumonia type: due to unspecified organism Qualified Code(s): J18.9 - Pneumonia, unspecified organism (7) Acute encephalopathy: (8) COPD exacerbation: (9) Atrial fibrillation with RVR: (10) Bacteremia due to Staphylococcus: Plan Acute encephalopathy -Likely combination of pneumonia, influenza A, hypoxia -Neurochecks -NIH stroke scale -Aspiration precautions Acute hypoxic respiratory failure -Multifactorial from influenza A, pneumonia -COPD exacerbation -CT angiogram of the chest shows CT/CT angio chest PE protcl [id number] IMPRESSION: 1. No pulmonary embolism. 2. Ascending aortic aneurysm up to 4.7 cm, unchanged. Recommend continued surveillance. 3. Evidence of small airways inflammatory process. No focal infiltrate. 4. Moderate emphysematous changes. Plan -Start Tamiflu -Start vancomycin -Start Zosyn -Solu-Medrol 40 mg IV every 8 hours -DuoNeb -Budesonide -Sputum culture -Blood culture -Monitor respiratory status closely Staph bacteremia -Likely contamination -Continue vancomycin -Follow repeat blood cultures A-fib with rapid ventricular response -Switch to p.o. Cardizem -Eliquis 5 mg twice daily Hypokalemia, replaced in the emergency room, resolved Sepsis -Sepsis features met, given evidence of acute hypoxic respiratory failure, acute respiratory distress, influenza A, pneumonia, CHF appears euvolemic hold off on Lasix therapy CONCLUSIONS Normal left ventricular size, systolic function and wall thickness, with no regional wall motion abnormalities. Left ventricular ejection fraction is estimated at 60 %. Grade I/IV diastolic dysfunction (abnormal relaxation filling pattern), normal to mildly elevated filling pressures. Mild aortic valve calcification. Mild aortic valve stenosis, mean gradient 7.4 mmHg, FLORENCE 2.1 cm squared. Trace aortic valve regurgitation. Mildly thickened mitral valve. No mitral valve stenosis. Mild mitral valve regurgitation. There is no pericardial effusion. Right atrial pressure is around 10 mm of mercury. full code eliquis for dvt prophylaxis PDMP PDMP Reviewed: Not Reviewed Attestations 2 Medical Necessity Statement*: Patient requires hospitalization for acute encephalopathy, respiratory failure, flu, pneumonia Diagnoses Acute hypoxic respiratory failure J96.01 Influenza A J10.1 Sepsis A41.9 Hyperlipidemia E78.5 PINEDA (acute kidney injury) N17.9 Pneumonia J18.9 Laterality: left Lung location: lower lobe of lung Pneumonia type: due to unspecified organism Acute encephalopathy G93.40 COPD exacerbation J44.1 Atrial fibrillation with RVR I48.91 Bacteremia due to Staphylococcus R78.81; B95.8
[2024-08-01] MEDS: vancomycin 500 MG in sodium chloride 0.9% (plus) 100 ML 200 MG IV ×2 (10:29→23:27)
[2024-08-01] MEDS: benzonatate 100 mg Capsule PO (11:39)
[2024-08-01 12:50] LABS: Glucose Point of Care 174 mg/dL (70-110)
[2024-08-02] MEDS: methylPREDNISolone sod succ 40 mg/mL INJ IVP ×2 (00:03→08:11)
[2024-08-02] MEDS: dilTIAZem 30 mg Tablet PO ×2 (00:03→11:46)
[2024-08-02] MEDS: meropenem 1,000 mg SDV 1000 MG IVP (02:34)
[2024-08-02 04:00] VITALS: BP 133/88; PULSE 56; RESP 21; TEMP 35.9; O2SAT 96
[2024-08-02] MEDS: aspirin 81 mg Chew Tablet PO (05:35)
[2024-08-02 07:38] LABS: Basophils % 0.4 %; Hematocrit 37.1 % (37-53); Lymphocytes # 0.6 10^3/uL (0.8-4.8); Lymphocytes % 23.3 %; Mean Corpuscular HGB Conc 31.8 g/dL (30-55); Mean Corpuscular Hemoglobin 28.9 pg (27-33); Mean Corpuscular Volume 90.9 fl (82-101); Mean Platelet Volume 9.5 fL (7.4-10.4); Monocytes # 0.2 10^3/uL (0.2-0.9); Neutrophils # 1.84 10^3/uL (1.8-7.7); Neutrophils % 69.2 %; Nucleated Red Blood Cells % 0 %; Platelet Count 153 10^3/cmm (157-399); Red Blood Count 4.08 10^6/uL (3.85-5.65); Red Cell Distribution Width 13.1 % (12.1-15.1); White Blood Count 2.66 10^3/uL (3.29-11.43)
[2024-08-02 07:55] LABS: Alanine Aminotransferase 20 U/L (0-41); Alkaline Phosphatase 78 U/L (40-130); Anion Gap 14.8 (5-19); Aspartate Amino Transferase 30 U/L (0-40); Blood Urea Nitrogen 60 mg/dL (8-23); C Reactive Protein 133.1 mg/L (0.0-4.9); Calcium 9.5 mg/dL (8.5-10.5); Carbon Dioxide 28 mmol/L (22-29); Chloride 103 mmol/L (98-107); Creatinine Clr Calc Pharmacy 55.8553; Globulin 3.4 g/dL (1.3-4.6); Glucose 150 mg/dL (65-115); Magnesium 2.1 mg/dL (1.7-2.3); Osmolality Calculated 314 mOsm/kg (285-295); Phosphorus 2.2 mg/dL (2.5-4.5); Potassium 3.8 mmol/L (3.5-5.1); Sodium 142 mmol/L (136-145); Total Bilirubin 0.3 mg/dL (0.15-1.2); Total Protein 6.4 g/dL (6.6-8.7)
[2024-08-02 08:00] VITALS: BP 155/100; PULSE 82; RESP 20; TEMP 36.6; O2SAT 95
[2024-08-02 08:04] LABS: NT Pro B Type Natriuretic Pept 5494 pg/mL (0-450)
[2024-08-02] MEDS: tamsulosin 0.4 mg Capsule PO (08:07)
[2024-08-02] MEDS: CLONazepam 0.5 mg Tablet 0.25 MG PO (08:07)
[2024-08-02] MEDS: oseltamivir phosphate 30 mg Capsule PO (08:08)
[2024-08-02] MEDS: OXcarbazepine 300 mg Tablet PO (08:08)
[2024-08-02] MEDS: apixaban 5 mg Tablet PO (08:08)
[2024-08-02] MEDS: benzonatate 100 mg Capsule PO (08:08)
[2024-08-02] MEDS: sertraline 100 mg Tablet PO (08:08)
[2024-08-02] MEDS: pantoprazole 40 mg SDV IVP (08:10)
[2024-08-02] MEDS: budesonide 0.5 mg/2 mL Neb INHALATION (09:46)
--- NOTE | 2024-08-02 09:46 | PC.CHAP ---
Pastoral Care Encounter/Spiritual Assessment Type of Contact [] Declined hand bender visit [] Patient/Family/Request visit [] Outpatient visit [] Follow-up visit [] Physician referral [] Code/Alert [x] Routine visit [] Staff referral [] Actively dying [] Patient sleeping [] Family support [] [] Out of room [] Palliative care [] [] Receiving care in room [] Pre-surgical visit [] Trauma [] Long length of stay [] ICU visit [] Other: Relational/Emotional Strength [] Patient feels connected with others/family/visitors/staff [] Distress [] Loneliness/isolation [] Abandonment Spirituality of Patient [] Person of [place] [] Attends Synagogue of their [place] [] Believes in Prayer [] Reads Bible or Sikhism materials [] There are Spiritual issues to be addressed Environmental Associate Interventions [] Prayer [] Active listening [] Non-anxious presence [] Spiritual/emotional support [] Crisis/trauma care [] Spiritual counseling [] Bereavement support [] Provided bereavement packet [] Provided Bible/devotional materials [] Provided toy/stuffed animal, coloring book to patient or family member [] Provided Communion [] Anointing/[place] [] Salvation [] Completed spiritual assessment [] Other: Impact on Illness or Injury [] Angry [] Fearful [] Anxious [] Often cries [] Exhaustion [] Unable to work [] Unable to attend episcopalian [] Unable to walk/stand [] Unable to read [] Unable to drive [] Unable to eat/drink [] Unable to sleep [] Unable to be with family [] Patient intubated [] Other: Summary precaution Time spent with patient
[2024-08-02 09:51] VITALS: PULSE 89; RESP 18; O2SAT 95
[2024-08-02] MEDS: vancomycin 500 MG in sodium chloride 0.9% (plus) 100 ML 200 MG IV (10:18)
[2024-08-02 10:42] LABS: Estmated Average Glucose 97
[2024-08-02 10:55] LABS: Iron 70 ug/dL (59-158); Total Iron Binding Capacity 152 mcg/dl; Unsaturated Iron Binding 82 ug/dL (112-347)
[2024-08-02 11:11] LABS: Vitamin B12 952 pg/mL (232-1245)
--- NOTE | 2024-08-02 11:59 | PC.SOCIAL ---
IMM Update pg 2 of IMM updated and reviewed w/ patient. Copy provided and copy dated, initialed and placed in chart.
[2024-08-02 12:00] VITALS: BP 143/99; PULSE 92; RESP 28; TEMP 36.9; O2SAT 98
--- NOTE | 2024-08-02 12:36 | P.DS_ITS ---
Discharge Providers Date of Admission: 07/31/24 07:45 Date of Discharge: August 02, 2024 Attending Provider at Admission: Julio Bravo MD Attending Provider at Discharge: Campbell Ferraro MD Primary Care Provider: ELVIA Mitchell Diagnoses at Discharge Discharge Diagnosis (1) Acute hypoxic respiratory failure: Status: Acute (2) Influenza A: Status: Acute (3) Sepsis: Status: Acute (4) Hyperlipidemia: Status: Acute (5) PINEDA (acute kidney injury): Status: Acute (6) Pneumonia: Status: Inactive Qualifiers: Laterality: left Lung location: lower lobe of lung Pneumonia type: due to unspecified organism Qualified Code(s): J18.9 - Pneumonia, unspecified organism (7) Acute encephalopathy: Status: Acute (8) COPD exacerbation: Status: Acute (9) Atrial fibrillation with RVR: Status: Acute (10) Bacteremia due to Staphylococcus: Status: Acute Reason for Visit Reason for Visit: SOB Brief History: History as per HPI: Alessandro Duran is a 88 year old male with a past medical history of pulmonary embolism on Eliquis, COPD, hypertension, diastolic CHF, pulmonary hypertension, hyperlipidemia, history of UTIs, history of seizures, history of CVA history of prostate cancer who presents [facility] for shortness of breath. Currently patient is alert to person, to place, not to time he can follow commands but easily is confused. He is just not realizing in the hospital but does complain of shortness of breath. Currently on 6 L, mild respiratory failure, nasal flaring, intercostal retractions, suprasternal retractions. Currently in A-fib on Cardizem drip, patient tested positive for influenza, was started on Tamiflu 48 hours ago, he denies any chest pain, no flank pain, no dysuria, Hospital Course Hospital Course Patient was admitted to the hospital further evaluation and management of acute hypoxic respiratory failure along with encephalopathy in setting of influenza with concerns for mild aspiration pneumonia. On admission he was in A-fib with RVR for which he was started on Cardizem drip which was later transitioned to oral Cardizem. Patient responded well to the treatment and has been back to his baseline mentation and oxygen supplementation for more than 24 hours. Patient not continued on nebulization treatment along with oral Tamiflu. During hospitalization his sputum culture remained negative, 1 out of 4 bottles from admission were positive for coag negative staph which is thought to be a contaminant. Repeat blood culture has been sent on 08/01. He has been discharged back to alf in hemodynamically stable condition with advised to continue taking his current diet consistency with aspiration precaution. He has been discharged on oral antibiotics for 5-day course. Physical Exam Const: COMMON NORMALS: no acute distress EXAM LIMITATIONS: altered mental status ORIENTATION/CONSCIOUSNESS: Yes awake, Yes oriented to person, Yes oriented to place and Yes confused; not oriented to time Eye: COMMON NORMALS: Equal, round and reactive pupils present PUPIL: Yes Equal, round and reactive pupils present Neck/C-Spine: COMMON NORMALS: no JVD Lymph: LYMPHATIC: no lymphadenopathy noted Resp: COMMON NORMALS: normal respiratory effort, No retractions and No use of accessory muscles AUSCULTATION: crackles and wheezes OTHER: Wheezing and crackles in all lung sauced[place], nasal flaring, intercostal retractions suprasternal retractions, tachypnea, tachycardia mild to moderate respiratory distress, Cardio: COMMON NORMALS: no JVD, regular rate, regular rhythm, S1 normal heart sound present and S2 normal heart sound present RATE: regular rate RHYTHM: regular rhythm HEART SOUNDS: S1 normal heart sound present and S2 normal heart sound present GI: COMMON NORMALS: Normal to inspection, nondistended, normoactive bowel sounds present, Soft to palpation and non-tender PALPATION: Yes Soft to palpation Extremity: COMMON NORMALS: no pedal edema Neuro: COMMON NORMALS: CN's II-XII intact bilaterally, moves all extremities and no focal motor deficits SENSORIUM/ORIENTATION: Yes oriented to person, Yes oriented to place and No oriented to time Psych: COMMON NORMALS: mental status grossly normal Discharge Data Studies Completed and Pending Completed Studies During Hospitalization Category Date Time Status CT angio chest PE protcl [id number] Stat Cat Scan 07/31/24 04:56 Completed XR chest 1V portable [id number] Stat Exams 07/31/24 04:13 Completed CV. echo complete* [id number] Routine Ultrasound 07/31/24 08:37 Completed Pending at discharge Category Date Time Status Blood Culture Stat Lab 07/31/24 04:45 Results Blood Culture Stat Lab 08/01/24 12:07 Results C Reactive Protein AM LABS Lab 08/03/24 04:00 Ordered Complete Blood Count w/Auto AM LABS Lab 08/03/24 04:00 Ordered Comprehensive Metabolic Panel AM LABS Lab 08/03/24 04:00 Ordered Folate Level AM LABS Lab 08/03/24 04:00 Ordered MAG [Magnesium] AM LABS Lab 08/03/24 04:00 Ordered MAG [Magnesium] AM LABS Lab 08/04/24 04:00 Ordered MAG [Magnesium] AM LABS Lab 08/05/24 04:00 Ordered MRSA PCR OZH (swab) Routine Lab 08/02/24 10:22 Uncollected Magnesium AM LABS Lab 08/03/24 04:00 Ordered NT Pro B Type Natriuretic Pept QAM Lab 08/03/24 06:00 Ordered Phosphorus AM LABS Lab 08/03/24 04:00 Ordered Procalcitonin AM LABS Lab 08/03/24 04:00 Ordered Sputum Culture and Gram Stain Stat Lab 08/01/24 08:10 Results Vancomycin Trough Timed Lab 08/02/24 21:00 Ordered Radiology Impressions Chest X-Ray 07/31/24 04:13 IMPRESSION: 1. Moderate cardiomegaly with vascular congestion. 2. New increased density mid and lower lung saucedo on the left concerning for superimposed infiltrate. Chest CTA 07/31/24 04:56 IMPRESSION: 1. No pulmonary embolism. 2. Ascending aortic aneurysm up to 4.7 cm, unchanged. Recommend continued surveillance. 3. Evidence of small airways inflammatory process. No focal infiltrate. 4. Moderate emphysematous changes. Microbiology 08/01/24 08:10 Sputum - Expectorated Sputum Gram Stain - Final 08/01/24 08:10 Sputum - Expectorated Sputum Sputum Culture - Preliminary 08/01/24 12:07 Blood Blood Culture - Preliminary SPECIMEN COLLECTED 08/01/24 12:09 Blood Blood Culture - Preliminary SPECIMEN COLLECTED 07/31/24 04:22 Blood Blood Culture - Preliminary Staphylococcus sp coag neg 07/31/24 04:45 Blood Blood Culture - Preliminary NEGATIVE TO DATE Echocardiogram: CONCLUSIONS Normal left ventricular size, systolic function and wall thickness, with no regional wall motion abnormalities. Left ventricular ejection fraction is estimated at 60 %. Grade I/IV diastolic dysfunction (abnormal relaxation filling pattern), normal to mildly elevated filling pressures. Mild aortic valve calcification. Mild aortic valve stenosis, mean gradient 7.4 mmHg, FLORENCE 2.1 cm squared. Trace aortic valve regurgitation. Mildly thickened mitral valve. No mitral valve stenosis. Mild mitral valve regurgitation. There is no pericardial effusion. Right atrial pressure is around 10 mm of mercury. Essence Hernandez MD (Electronically Signed) Final Date: 31 July 2024 Laboratory Results WBC 2.66 10^3/uL (3.29-11.43) L 08/02/24 07:14 RBC 4.08 10^6/uL (3.85-5.65) 08/02/24 07:14 Hgb 11.80 g/dL (11.27-16.99) 08/02/24 07:14 Hct 37.1 % (37-53) 08/02/24 07:14 MCV 90.9 fl (82-101) 08/02/24 07:14 MCH 28.9 pg (27-33) 08/02/24 07:14 MCHC 31.8 g/dL (30-55) 08/02/24 07:14 RDW 13.1 % (12.1-15.1) 08/02/24 07:14 Plt Count 153 10^3/cmm (157-399) L 08/02/24 07:14 MPV 9.5 fL (7.4-10.4) 08/02/24 07:14 Neut % (Auto) 69.2 % 08/02/24 07:14 Lymph % (Auto) 23.3 % 08/02/24 07:14 Campbell % (Auto) 6.0 % 08/02/24 07:14 Eos % (Auto) 0.0 % 08/02/24 07:14 Baso % (Auto) 0.4 % 08/02/24 07:14 Neut # (Auto) 1.84 10^3/uL (1.8-7.7) 08/02/24 07:14 Lymph # (Auto) 0.6 10^3/uL (0.8-4.8) L 08/02/24 07:14 Campbell # (Auto) 0.2 10^3/uL (0.2-0.9) 08/02/24 07:14 Eos # (Auto) 0.0 10^3/uL (0.0-0.8) 08/02/24 07:14 Baso # (Auto) 0.0 10^3/uL (0.0-0.1) 08/02/24 07:14 Nucleated RBC % (auto) 0 % 08/02/24 07:14 Nucleated RBCs # 0.0 /100WBC 08/02/24 07:14 D-Dimer 1.08 ug/mLFEU (0-0.59) H 07/31/24 04:22 Specimen Type Arterial 07/31/24 04:25 Sample Site Brachial, left 07/31/24 04:25 ABG pH 7.47 (7.35-7.45) H 07/31/24 04:25 ABG pCO2 43.2 mmHg (35-45) 07/31/24 04:25 ABG pO2 57.9 mmHg (80.0-100.0) L 07/31/24 04:25 ABG HCO3 31.4 mmol/L (22-26) H 07/31/24 04:25 ABG O2 Saturation 93.0 07/31/24 04:25 ABG Base Excess 6.9 mmol/L (-2.0-2.0) H 07/31/24 04:25 Ruben Test Pos 07/31/24 04:25 A-a O2 Gradient 4.9 mmHg (5-10) L 07/31/24 04:25 Hematocrit 37.8 % (42-52) L 07/31/24 04:25 Hgb O2 Saturation 91.4 % (95-100) L 07/31/24 04:25 Carboxyhemoglobin 1.4 %THgb (0.4-20.1) 07/31/24 04:25 Methemoglobin 0.3 % (0.4-1.5) L 07/31/24 04:25 Total Hemoglobin 12.3 g/dL (14-18) L 07/31/24 04:25 Sodium 143.0 mmol/L (131-143) 07/31/24 04:25 Potassium 2.8 mmol/L (3.5-5.0) L 07/31/24 04:25 Glucose 132.0 mg/dL (70-115) H 07/31/24 04:25 Ionized Calcium 1.2 mmol/L (1.1-1.4) 07/31/24 04:25 O2 Delivery Device Nc 07/31/24 04:25 O2 Liters/Min 6.0 % 07/31/24 04:25 Machine Castings Plasterer ID [email or web address] 07/31/24 04:25 Sodium 142 mmol/L (136-145) 08/02/24 07:14 Potassium 3.8 mmol/L (3.5-5.1) 08/02/24 07:14 Chloride 103 mmol/L (98-107) 08/02/24 07:14 Carbon Dioxide 28 mmol/L (22-29) 08/02/24 07:14 Anion Gap 14.8 (5-19) 08/02/24 07:14 BUN 60 mg/dL (8-23) H 08/02/24 07:14 Creatinine 0.8 mg/dL (0.7-1.2) 08/02/24 07:14 GFR Calculation Not Reportable 08/02/24 07:14 Glucose 150 mg/dL (65-115) H 08/02/24 07:14 POC Glucose 174 mg/dL (70-110) H 08/01/24 12:03 Estimat Average Glucose 97 08/02/24 07:14 Hemoglobin A1c 5.0 % (4.0-6.0) 08/02/24 07:14 Calculated Osmolality 314 mOsm/kg (285-295) H 08/02/24 07:14 Lactic Acid 1.9 mmol/L (0.5-2.2) 07/31/24 04:22 Lactate 0.9 mmol/L (0.5-2.2) 08/01/24 02:35 Calcium 9.5 mg/dL (8.5-10.5) 08/02/24 07:14 Phosphorus 2.2 mg/dL (2.5-4.5) L 08/02/24 07:14 Magnesium 2.1 mg/dL (1.7-2.3) 08/02/24 07:14 Iron 70 ug/dL (59-158) 08/02/24 07:14 TIBC 152 mcg/dl 08/02/24 07:14 % Saturation 46.0 % (20-50) 08/02/24 07:14 Unsat Iron Binding 82 ug/dL (112-347) L 08/02/24 07:14 Total Bilirubin 0.3 mg/dL (0.15-1.2) 08/02/24 07:14 AST 30 U/L (0-40) 08/02/24 07:14 ALT 20 U/L (0-41) 08/02/24 07:14 Alkaline Phosphatase 78 U/L (40-130) 08/02/24 07:14 Troponin T Baseline 29 ng/L (0-15) H 07/31/24 04:22 Troponin T 120 Minute 31.23 ng/L (0-15) H 07/31/24 06:43 Delta Troponin T 2.23 ABS# (0-10) 07/31/24 06:43 Troponin T Hi Sens 6Hr 26.35 ng/L (0-15) H 07/31/24 10:30 Troponin T Hi Sens 6Hr Delta -2.65 ng/L (0-12) L 07/31/24 10:30 C-Reactive Protein 133.1 mg/L (0.0-4.9) H 08/02/24 07:14 NT-Pro-B Natriuret Pep 5494 pg/mL (0-450) H 08/02/24 07:14 Total Protein 6.4 g/dL (6.6-8.7) L 08/02/24 07:14 Albumin 3.0 g/dL (3.5-5.2) L 08/02/24 07:14 Globulin 3.4 g/dL (1.3-4.6) 08/02/24 07:14 Vitamin B12 952 pg/mL (232-1245) 08/02/24 07:14 Procalcitonin 0.90 ng/mL (0-0.5) H 08/02/24 07:14 TSH 0.98 uIU/mL (0.27-4.20) 07/31/24 06:43 Urine Color Yellow (Yellow) 07/31/24 04:41 Urine Appearance Cloudy (CLEAR) A 07/31/24 04:41 Urine pH 5.0 (5-7) 07/31/24 04:41 Ur Specific [place] 1.019 (1.005-1.030) 07/31/24 04:41 Urine Protein 1+ (Negative) A 07/31/24 04:41 Urine Glucose (UA) Negative (Normal) 07/31/24 04:41 Urine Ketones Negative (Negative) 07/31/24 04:41 Urine Blood Negative (Negative) 07/31/24 04:41 Urine Nitrate Negative (Negative) 07/31/24 04:41 Urine Bilirubin Negative (Negative) 07/31/24 04:41 Urine Urobilinogen 1.0 mg/dL (Negative) 07/31/24 04:41 Ur Leukocyte Esterase Negative (Negative) 07/31/24 04:41 Urine RBC 0-2 /hpf (0-2) 07/31/24 04:41 Urine WBC 0-5 /hpf (0-5) 07/31/24 04:41 Ur Squamous Epith Cells 0-5 /hpf (0-5) 07/31/24 04:41 Amorphous Sediment 2+ /hpf 07/31/24 04:41 Urine Bacteria None seen /hpf (NONE) 07/31/24 04:41 Hyaline Casts 20.67 /lpf 07/31/24 04:41 Coarse Granular Casts 0-4 /lpf H 07/31/24 04:41 Vitals Last Vital Signs Temp 98.4 F 08/02/24 12:00 Pulse 92 08/02/24 12:00 Resp 28 H 08/02/24 12:00 BP 143/99 08/02/24 12:00 Pulse Ox 98 08/02/24 12:00 O2 Del Method Nasal Cannula 08/02/24 12:00 O2 Flow Rate 2 08/02/24 12:00 Discharge Plan Discharge Patient Disposition: Home Condition: Stable Prescriptions: New prednisone 10 mg tablet See Taper PO DIRECTED Qty: 42 0RF Taper: predniSONE 60-10 60 mg Daily for 2 Days and 0 Hour 50 mg Daily for 2 Days and 0 Hour 40 mg Daily for 2 Days and 0 Hour 30 mg Daily for 2 Days and 0 Hour 20 mg Daily for 2 Days and 0 Hour 10 mg Daily for 2 Days and 0 Hour Rx Instructions: see taper instructions cefdinir 300 mg capsule 300 mg PO BID 5 Days Qty: 10 0RF benzonatate 100 mg Capsule 100 mg PO TID PRN (Reason: Cough) Qty: 10 0RF Continued (DME) left cock up wrist brace See Rx Instructions .Route .MEDSUPPLY Qty: 1 0RF Rx Instructions: As directed (DME) sling See Rx Instructions .Route .MEDSUPPLY Qty: 1 0RF Rx Instructions: As directed oxcarbazepine 300 mg tablet 300 mg PO BID aspirin 81 mg Tablet,Chewable 81 mg PO QAM budesonide-formoterol [Symbicort] 80-4.5 mcg/actuation HFA aerosol inhaler 2 puff inhalation BID Qty: 10.2 0RF ondansetron HCl 4 mg Tablet 4 mg PO Q4H PRN (Reason: Nausea And Vomiting) sertraline 100 mg Tablet 100 mg PO DAILY magnesium hydroxide [Milk of Magnesia] 400 mg/5 mL Suspension 30 ml PO DAILY PRN (Reason: Constipation) bisacodyl [Dulcolax (bisacodyl)] 10 mg Suppository 10 mg ME DAILY PRN (Reason: Constipation) losartan 25 mg Tablet 25 mg PO DAILY metoprolol tartrate 50 mg Tablet 50 mg PO BID Fleet Enema 19-7 gram/118 mL Enema 118 ml ME DAILY PRN (Reason: Constipation) dextromethorphan-guaifenesin [Robitussin Cough-Chest Ej DM] 5-100 mg/5 mL Liquid 10 ml PO Q4H PRN (Reason: Cough) Culturelle 10 billion cell Capsule 1 cap PO DAILY Eliquis 5 mg Tablet 5 mg PO BID Biofreeze (menthol) 4 % Gel 1 applic TOPICAL TID PRN (Reason: Pain) latanoprost 0.005 % drops 1 drp ophthalmic (eye) BEDTIME albuterol sulfate 90 mcg/actuation HFA aerosol inhaler 2 puff INHALATION QID PRN (Reason: Shortness Of Breath) tamsulosin 0.4 mg capsule 0.4 mg PO DAILY Qty: 30 0RF potassium chloride 10 mEq Capsule, Extended Release 10 meq PO DAILY lorazepam 0.5 mg Tablet 0.5 mg PO DAILY fluticasone propionate 50 mcg/actuation [place],Suspension 1 spray INTRANASAL DAILY Rx Instructions: administer into each nostril sennosides-docusate sodium [Stool Softener-Laxative] 8.6-50 mg Tablet 1 tab PO DAILY Qty: 10 0RF oxycodone-acetaminophen 5-325 mg Tablet 1 tab PO Q6H PRN (Reason: Moderate Pain) Qty: 10 0RF clonazepam 0.5 mg tablet 0.25 mg PO BID PRN (Reason: arm tremor) Qty: 20 0RF pantoprazole 40 mg Tablet,Delayed Release (Dr/Ec) 40 mg PO BID Qty: 60 0RF Changed ipratropium-albuterol 0.5 mg-3 mg(2.5 mg base)/3 mL solution for nebulization 3 ml inhalation TID Qty: 90 0RF acetaminophen 500 mg Tablet 500 mg PO Q6H PRN (Reason: Pain) Qty: 10 0RF Discontinued nitrofurantoin macrocrystal 100 mg Capsule 100 mg PO DAILY Rx Instructions: must administer with a meal/food hydrochlorothiazide 25 mg Tablet 25 mg PO DAILY oseltamivir [Tamiflu] 75 mg capsule 75 mg PO Q12H 5 Days Qty: 10 0RF Discharge Orders: Discharge Order (Routine); Ordered 08/02/24 Ordered By: Campbell Ferraro Referrals: Giovanni Vega FNP [Primary Care Provider] - 7-10 days Discharge Diet: Usual diet Discharge Activity: Resume usual activity and Increase activity as tolerated Patient Instructions: Opioid Safety Activity Restrictions/Additional Instructions: Check blood pressure daily at home. Goal blood pressure less than 140/90 mmHg. Hold off on hydrochlorothiazide for now. Steroid taper as prescribed. Oral cefdinir for next 5 days. Discharge Attestations Time Spent in Discharge Care*: greater than 30 min Specific Discharge Activities: educating patient, discussing with pcp/other providers, discussing with casey saw operator/social workers/dc planners, documenting/other paperwork and evaluating patient/reviewing data Status at Discharge: Cognitive status at discharge: cognitively intact , Behavioral status at discharge: cooperative , Functional status at discharge: other assisted ambulation , Overall status at discharge: patient is back to baseline Quality Metrics Clinical Quality Measures [ No reported AMI, CVA or VTE this stay] Coding Level of Care Code 91780 Total time (in minutes) for Discharge: 60 Diagnoses Acute hypoxic respiratory failure J96.01 Influenza A J10.1 Sepsis A41.9 Hyperlipidemia E78.5 PINEDA (acute kidney injury) N17.9 Pneumonia J18.9 Laterality: left Lung location: lower lobe of lung Pneumonia type: due to unspecified organism Acute encephalopathy G93.40 COPD exacerbation J44.1 Atrial fibrillation with RVR I48.91 Bacteremia due to Staphylococcus R78.81; B95.8
[2024-08-02 14:13] LABS: Influenza A NEGATIVE (Negative); Influenza B NEGATIVE (Negative); Respiratory Syncytial Virus Ce NEGATIVE (Negative); SARS-CoV-2 PCR NEGATIVE (Negative)
[2024-08-02 14:59] VITALS: BP 143/99; PULSE 92; RESP 28; TEMP 36.9
[2024-08-02 15:38] VITALS: BP 117/71; PULSE 85; RESP 23; TEMP 36.9; O2SAT 96
[2024-08-02 16:22] LABS: MRSA PCR OZH (swab) NOT DETECTED (Negative)
== END 2024-08-02 15:39 | disposition skilled nursing facility (03) | DRG 871 ==
LOC: ER 06:20 → ER IP 08:11 → CSU 13:43
PROVIDERS: Emergency Medicine; Admitting Provider Family Medicine; Emergency Provider Family Medicine; PCP Nurse Practitioner; Visit Provider Student in an Organized Health Care Education/Training Program
DX: A41.9 Sepsis, unspecified organism (principal); G93.41 Metabolic encephalopathy; J96.01 Acute respiratory failure with hypoxia; J69.0 Pneumonitis due to inhalation of food and vomit; N17.9 Acute kidney failure, unspecified; J44.1 Chronic obstructive pulmonary disease with (acute) exacerbation; I50.32 Chronic diastolic (congestive) heart failure; J10.1 Influenza due to other identified influenza virus with other respiratory manifestations; E78.5 Hyperlipidemia, unspecified; I48.91 Unspecified atrial fibrillation; B95.8 Unspecified staphylococcus as the cause of diseases classified elsewhere; Z86.711 Personal history of pulmonary embolism; I11.0 Hypertensive heart disease with heart failure; I27.20 Pulmonary hypertension, unspecified; Z87.440 Personal history of urinary (tract) infections; Z86.73 Personal history of transient ischemic attack (TIA), and cerebral infarction without residual deficits; Z85.46 Personal history of malignant neoplasm of prostate; Z79.01 Long term (current) use of anticoagulants; Z79.891 Long term (current) use of opiate analgesic; R00.0 Tachycardia, unspecified; E87.6 Hypokalemia; Z87.891 Personal history of nicotine dependence; Z92.3 Personal history of irradiation; R25.1 Tremor, unspecified
CPT/HCPCS: 36415; 36416; 36600; 71045; 71275; 80051; 80053; 81001; 82330; 82607; 82805; 82962; 83036; 83540; 83550; 83605; 83735; 83880; 84100; 84145; 84443; 84484; 85025; 85378; 86140; 87040; 87070; 87077; 87150; 87186; 87205; 87637; 92610; 93005; 93306; 94640; 94664; 96366; 96367; 96374; 99284; 99291; J0131; J1100; J2185; J2470; J2919; J3370; J3490; J7050; J7626; Q0162

== ENCOUNTER 2024-08-31 09:23 | Inpatient (IN) | payer MEDICARE, MEDICAID, SELFPAY ==
[2024-08-31] VITALS (65 sets, daily range): BP systolic 61–209; BP diastolic 46–141; PULSE 67–111; RESP 7–20; TEMP 36.8–37.5; O2SAT 93–100; BMI 19.8; BMI 18.4
--- NOTE | 2024-08-31 09:25 | ECG_ITS ---
[facility] Test Date: 2024-08-31 Pat Name: Alessandro Duran Department: Room: Gender: Male Concaver: : 1935 Requested By: Simón Quick Order Number: [id number] Laquita MD: Roger Rincon M.D. Measurements Intervals [place] Rate: 79 P: 77 LA: 180 QRS: 21 QRSD: 78 T: 68 QT: 441 QTc: 506 Interpretive Statements SINUS RHYTHM MODERATE VOLTAGE CRITERIA FOR LVH, CONSIDER NORMAL VARIANT [MEETS CRITERIA IN ONE OF: R(aVL), S(V1), R(V5), R(V5/V6)+S(V1)] PROLONGED QT INTERVAL Compared to ECG 07/31/2024 10:54:21 Prolonged QT interval now present Left anterior fascicular block no longer present Myocardial infarct finding no longer present Electronically Signed On 09-03-2024 19:15:51 CDT by Roger Rincon M.D. [email or web address]
--- NOTE | 2024-08-31 09:25 | CT_ITS ---
WS: [id number] CT HEAD TECHNIQUE: Noncontrast CT of the head obtained from the skullbase to the vertex. CLINICAL INFORMATION: Symptoms of acute stroke COMPARISON: None. DLP: [address] scans at [facility] use at least one of these dose optimization techniques: automated exposure control; mA and/or kV adjustment per patient size (includes targeted exams where dose is matched to clinical indication); or iterative reconstruction. FINDINGS: No evidence of intracranial hemorrhage or mass effect. Ventricular system and basal cisterns are patent. Advanced small vessel changes with moderate parenchymal volume loss. Chronic infarct in the RIGHT temporal lobe with encephalomalacia. Tiny chronic lacunar infarct RIGHT thalamus. Chronic lacunar infarcts in the LEFT greater than RIGHT cerebellum. Vascular calcifications. Some images are degraded due to beam hardening artifact. Paranasal sinuses are well aerated. Chronic mucosal thickening RIGHT mastoid air cells. CT/CT head thrombolytic 18005 IMPRESSION: 1. No evidence of intracranial hemorrhage or mass effect. 2. Advanced small vessel changes. Moderate parenchymal volume loss. 3. Chronic infarcts similar to previous described above. 4. No acute intracranial findings. Notified Simón Lind DO at 08/31/2024 9:38 AM.
--- NOTE | 2024-08-31 09:32 | W.ED.NEUROSD ---
HPI - Neuro Symptoms/Deficit General: Chief Complaint: Neuro Symptoms/Deficit Stated Complaint: Stroke Alert Time Seen by Provider: 08/31/24 09:25 History of Present Illness: 88-year-old male presents emergency room via EMS as a stroke alert. Last known well was 845. He was using a wheelchair in the hallway and began to have difficulty suddenly with that this week on his left side. He has a history of CVAs. He does have a history of DVT and A-fib he is on Eliquis did take his Eliquis this morning. He is unable to answer any questions. My first encounter and the patient in the CT suite appears to be having a focal seizure on the left. Dr. Yarbrough arrived shortly after I did. When I first came in the room they were doing the initial CT scan. Dr. Yarbrough is evaluating in the trauma bay at this time Related Data Home Medications ?Medication ?Instructions ?Recorded ?Confirmed aspirin 81 mg chewable tablet 81 mg PO QAM 11/29/19 08/31/24 oxcarbazepine 300 mg tablet 300 mg PO BID 11/29/19 08/31/24 albuterol sulfate 90 mcg/actuation 2 puff inhalation QID PRN 03/18/23 08/31/24 aerosol inhaler Shortness Of Breath latanoprost 0.005 % eye drops 1 drp ophthalmic (eye) BEDTIME 03/18/23 08/31/24 fluticasone propionate 50 1 spray intranasal DAILY 04/05/24 08/31/24 mcg/actuation nasal spray,suspension lorazepam 0.5 mg tablet 0.5 mg PO DAILY 04/05/24 08/31/24 potassium chloride 10 mEq 10 meq PO DAILY 04/05/24 08/31/24 capsule,extended release Lactobacillus rhamnosus GG 10 1 cap PO DAILY 07/31/24 08/31/24 billion cell capsule (Culturelle) apixaban 5 mg tablet (Eliquis) 5 mg PO BID 07/31/24 08/31/24 bisacodyl 10 mg rectal suppository 10 mg [place] DAILY PRN Constipation 07/31/24 08/31/24 (Dulcolax (bisacodyl)) dextromethorphan-guaifenesin 5 10 ml PO Q4H PRN Cough 07/31/24 08/31/24 mg-100 mg/5 mL oral liquid (Robitussin Cough-Chest Congestion DM) losartan 25 mg tablet 25 mg PO DAILY 07/31/24 08/31/24 magnesium hydroxide 400 mg/5 mL 30 ml PO DAILY PRN Constipation 07/31/24 08/31/24 oral suspension (Milk of Magnesia) menthol 4 % topical gel (Biofreeze 1 applic topical TID PRN Pain 07/31/24 08/31/24 (menthol)) metoprolol tartrate 50 mg tablet 50 mg PO BID 07/31/24 08/31/24 ondansetron HCl 4 mg tablet 4 mg PO Q4H PRN Nausea And Vomiting 07/31/24 08/31/24 sertraline 100 mg tablet 100 mg PO DAILY 07/31/24 08/31/24 sodium phosphates 19 gram-7 118 ml [place] DAILY PRN Constipation 07/31/24 08/31/24 gram/118 mL enema (Fleet Enema) nitrofurantoin macrocrystal 100 mg 100 mg PO DAILY 08/31/24 08/31/24 capsule pantoprazole 40 mg tablet,delayed 40 mg PO DAILY 08/31/24 08/31/24 release Previous Rx's ?Medication ?Instructions ?Recorded budesonide-formoterol HFA 80 2 puff inhalation BID #10.2 grams 03/17/23 mcg-4.5 mcg/actuation aerosol inhaler (Symbicort) tamsulosin 0.4 mg capsule 0.4 mg PO DAILY #30 caps 03/21/23 oxycodone-acetaminophen 5 mg-325 1 tab PO Q6H PRN Moderate Pain #10 04/08/24 mg tablet tabs sennosides 8.6 mg-docusate sodium 1 tab PO DAILY #10 tabs 04/08/24 50 mg tablet (Stool Softener-Laxative) acetaminophen 500 mg tablet 500 mg PO Q6H PRN Pain #10 tabs 08/02/24 ipratropium 0.5 mg-albuterol 3 mg 3 ml inhalation TID shortness of 08/02/24 (2.5 mg base)/3 mL nebulization breath or wheezing #90 mL soln Allergies Allergy/AdvReac Type Severity Reaction Status Date / Time amoxicillin Allergy Unknown Verified 07/28/24 22:17 Penicillins Allergy Unknown Verified 07/28/24 22:17 Review of Systems General: Reports: ROS unobtainable due to mental status PFSH ED PFSH: Medical History COPD exacerbation Left wrist fracture Anemia Pulmonary embolism Urinary tract infection Dizziness Frequent falls Closed left hip fracture Septic shock UTI (urinary tract infection) Acute exacerbation of chronic obstructive airways disease Pulmonary hypertension Diastolic congestive heart failure History of CVA (cerebrovascular accident) Hyperlipidemia Anxiety History of seizure disorder Hypertension History of seizures COPD (chronic obstructive pulmonary disease) Prostate CA Status post radiation Surgical History Status post-operative repair of closed fracture of left hip History of excision of lesion L neck History of cataract surgery History of tonsillectomy Family History Mother , 98, healthy No problems noted. Father CAD (coronary artery disease) Social History Smoking and tobacco/nicotine status: former use of tobacco/nicotine Quit status (tobacco/nicotine): has quit using Year quit tobacco: 20 years ago Second hand smoke exposure: No Alcohol intake: never Substance/Drug Use: never Lives independently: Yes Household members: none Physical Exam Const: GENERAL APPEARANCE: cooperative HENMT: COMMON NORMALS: normocephalic, atraumatic and hearing grossly normal bilaterally HEAD & SCALP: normocephalic and atraumatic Resp: COMMON NORMALS: normal respiratory effort, No retractions, No use of accessory muscles and clear to auscultation bilaterally AUSCULTATION: clear to auscultation bilaterally Cardio: COMMON NORMALS: regular rate, regular rhythm and No murmurs present (Cardio) RATE: regular rate RHYTHM: regular rhythm GI: COMMON NORMALS: Soft to palpation and No hepatosplenomegaly present AUSCULTATION: Yes normoactive bowel sounds PALPATION: Yes Soft to palpation, No Tenderness to palpation present (GI), No Guarding due to palpation present (GI) and Yes No hepatosplenomegaly present Extremity: COMMON NORMALS: normal to inspection, capillary refill normal, no clubbing, cyanosis or edema, no calf tenderness and no pedal edema Skin: COMMON NORMALS: no rashes or lesions noted GENERAL SKIN EXAM: no rashes or lesions noted Procedures Intubation Time out performed: Yes sedative: Etomidate Mg Given: 20 paralytic: Vecuronium Mg Given: 10 Laryngoscope: fiber optic video scope ET Tube Size: 8 ET Tube Uncuffed: No Tube Secured Depth (cm): 22 Tube Secured Location: teeth Tube Placement Confirmation: visualized tube passing through cords, equal breath sounds bilaterally, no breath sounds over epigastrium and confirmation by capnometry Patient Tolerated Procedure: well Intubation Complications: none Course Vital Signs: Vital signs: Vital Signs Temperature 99.5 F 08/31/24 14:00 Pulse Rate 79 08/31/24 14:00 Respiratory Rate 14 08/31/24 15:08 Blood Pressure 83/58 08/31/24 14:00 Pulse Oximetry 97 08/31/24 15:08 Oxygen Delivery Me thod Mechanical Ventil ation 08/31/24 14:00 Oxygen Flow Rate 40 08/31/24 14:00 Fraction of Inspir ed Oxygen 40 08/31/24 15:08 MDM - Neuro Symptoms/Deficit Medical Decision Making Patient was initially seen by myself Dr. 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 He had a forced left deviation of his vision is very difficult to score Dr. Yarbrough scored him as an NIH of 13. He is on Eliquis so is not a candidate for thrombolytics. CTA of the head and neck was done later and was negative he is not a candidate for embolectomy. Dr. Yarbrough felt he was having focal seizures he was given Ativan a gram of Keppra and another milligram Ativan despite this seizures seem to persist and spread Dr. Yarbrough asked that we intubate the patient. He underwent RSI intubation with rocuronium and etomidate after which she was given propofol. He had a hypotensive response to the propofol and then was started on Versed and fentanyl after being given IV fluids his blood pressure increase and became hypertensive again. There is no further sign of seizure. He will be admitted to Dr. Wright and Dr. Yarbrough will consult. Lab Data 08/31/24 09:38 08/31/24 09:[address] 08/31/24 09:25 IMPRESSION: 1. No evidence of intracranial hemorrhage or mass effect. 2. Advanced small vessel changes. Moderate parenchymal volume loss. 3. Chronic infarcts similar to previous described above. 4. No acute intracranial findings. Notified Simón Lind DO at 08/31/2024 9:38 AM. Head/Neck CTA 08/31/24 09:33 IMPRESSION: 1. No significant ICA stenosis bilaterally. 2. No evidence of proximal flow-limiting intracranial stenosis. 3. Aortic arch calcification. 4. Endotracheal tubes and enteric tubes. 5. Advanced emphysematous changes in the lung apices. Chest X-Ray 08/31/24 09:51 IMPRESSION: Endotracheal tube terminates 6.6 cm from the dang. Subdiaphragmatic enteric tube with side port within the stomach. No pneumothorax. Laboratory Results WBC 5.78 10^3/uL (3.29-11.43) 08/31/24 09:38 RBC 4.72 10^6/uL (3.85-5.65) 08/31/24 09:38 Hgb 13.50 g/dL (11.27-16.99) 08/31/24 09:38 Hct 42.0 % (37-53) 08/31/24 09:38 MCV 89.0 fl (82-101) 08/31/24 09:38 MCH 28.6 pg (27-33) 08/31/24 09:38 MCHC 32.1 g/dL (30-55) 08/31/24 09:38 RDW 13.4 % (12.1-15.1) 08/31/24 09:38 Plt Count 227 10^3/cmm (157-399) 08/31/24 09:38 MPV 9.0 fL (7.4-10.4) 08/31/24 09:38 Neut % (Auto) 68.9 % 08/31/24 09:38 Lymph % (Auto) 17.3 % 08/31/24 09:38 [place] % (Auto) 10.7 % 08/31/24 09:38 Eos % (Auto) 1.9 % 08/31/24 09:38 Baso % (Auto) 0.5 % 08/31/24 09:38 Neut # (Auto) 3.98 10^3/uL (1.8-7.7) 08/31/24 09:38 Lymph # (Auto) 1.0 10^3/uL (0.8-4.8) 08/31/24 09:38 [place] # (Auto) 0.6 10^3/uL (0.2-0.9) 08/31/24 09:38 Eos # (Auto) 0.1 10^3/uL (0.0-0.8) 08/31/24 09:38 Baso # (Auto) 0.0 10^3/uL (0.0-0.1) 08/31/24 09:38 Nucleated RBC % (auto) 0 % 08/31/24 09:38 Nucleated RBCs # 0.0 /100WBC 08/31/24 09:38 PT 13.20 SECONDS (12.1-14.9) 08/31/24 09:38 INR 0.94 (0.8-1.2) 08/31/24 09:38 APTT 28.5 SECONDS (23.9-36.7) 08/31/24 09:38 Specimen Type Arterial 08/31/24 10:06 Sample Site Brachial, right 08/31/24 10:06 ABG pH 7.47 (7.35-7.45) H 08/31/24 10:06 ABG pCO2 37.6 mmHg (35-45) 08/31/24 10:06 ABG pO2 491.0 mmHg (80.0-100.0) H 08/31/24 10:06 ABG PO2/FiO2 Ratio 491 08/31/24 10:06 ABG HCO3 27.0 mmol/L (22-26) H 08/31/24 10:06 ABG O2 Saturation > 99.1 08/31/24 10:06 ABG Base Excess 3.2 mmol/L (-2.0-2.0) H 08/31/24 10:06 Ruben Test Pos 08/31/24 10:06 A-a O2 Gradient 20.5 mmHg (5-10) H 08/31/24 10:06 Hematocrit 36.5 % (42-52) L 08/31/24 10:06 Hgb O2 Saturation > 100.0 % (95-100) H 08/31/24 10:06 Carboxyhemoglobin 1.1 %THgb (0.4-20.1) 08/31/24 10:06 Methemoglobin < 0.0 % (0.4-1.5) L 08/31/24 10:06 Total Hemoglobin 11.9 g/dL (14-18) L 08/31/24 10:06 Sodium 140.0 mmol/L (131-143) 08/31/24 10:06 Potassium 3.2 mmol/L (3.5-5.0) L 08/31/24 10:06 Glucose 94.0 mg/dL (70-115) 08/31/24 10:06 Ionized Calcium 1.1 mmol/L (1.1-1.4) 08/31/24 10:06 O2 Delivery Device Vent 08/31/24 10:06 FiO2 100.0 % 08/31/24 10:06 Tidal Volume 0.48 08/31/24 10:06 PEEP 5.0 cmH20 08/31/24 10:06 Health Care Sanitary Technician ID [place] 08/31/24 10:06 Sodium 140 mmol/L (136-145) 08/31/24 09:38 Potassium 3.8 mmol/L (3.5-5.1) 08/31/24 09:38 Chloride 101 mmol/L (98-107) 08/31/24 09:38 Carbon Dioxide 30 mmol/L (22-29) H 08/31/24 09:38 Anion Gap 12.8 (5-19) 08/31/24 09:38 BUN 12 mg/dL (8-23) 08/31/24 09:38 Creatinine 0.6 mg/dL (0.7-1.2) L 08/31/24 09:38 GFR Calculation Not Reportable 08/31/24 09:38 Glucose 97 mg/dL (65-115) 08/31/24 09:38 POC Glucose 104 mg/dL (70-110) 08/31/24 09:37 Calculated Osmolality 290 mOsm/kg (285-295) 08/31/24 09:38 Calcium 9.2 mg/dL (8.5-10.5) 08/31/24 09:38 Magnesium 1.8 mg/dL (1.7-2.3) 08/31/24 09:38 Total Bilirubin 0.4 mg/dL (0.15-1.2) 08/31/24 09:38 AST 22 U/L (0-40) 08/31/24 09:38 ALT 15 U/L (0-41) 08/31/24 09:38 Alkaline Phosphatase 163 U/L (40-130) H 08/31/24 09:38 Total Protein 7.0 g/dL (6.6-8.7) 08/31/24 09:38 Albumin 4.0 g/dL (3.5-5.2) 08/31/24 09:38 Globulin 3.0 g/dL (1.3-4.6) 08/31/24 09:38 Urine Color Yellow (Yellow) 08/31/24 10:03 Urine Appearance Clear (CLEAR) 08/31/24 10:03 Urine pH 8.0 (5-7) A 08/31/24 10:03 Ur Specific [place]nett 1.013 (1.005-1.030) 08/31/24 10:03 Urine Protein Negative (Negative) 08/31/24 10:03 Urine Glucose (UA) Negative (Normal) 08/31/24 10:03 Urine Ketones Negative (Negative) 08/31/24 10:03 Urine Blood Negative (Negative) 08/31/24 10:03 Urine Nitrate Negative (Negative) 08/31/24 10:03 Urine Bilirubin Negative (Negative) 08/31/24 10:03 Urine Urobilinogen 0.2 mg/dL (Negative) 08/31/24 10:03 Ur Leukocyte Esterase Negative (Negative) 08/31/24 10:03 Urine RBC 0-2 /hpf (0-2) 08/31/24 10:03 Urine WBC 0-5 /hpf (0-5) 08/31/24 10:03 Ur Squamous Epith Cells 0-5 /hpf (0-5) 08/31/24 10:03 Amorphous Sediment Not Reportable 08/31/24 10:03 Urine Bacteria None seen /hpf (NONE) 08/31/24 10:03 Hyaline Casts 4.52 /lpf 08/31/24 10:03 Urine Yeast Trace /hpf 08/31/24 10:03 Urine Opiates Screen Negative ng/mL (Negative) 08/31/24 10:03 Ur Barbiturates Screen Negative ng/mL (Negative) 08/31/24 10:03 Ur Phencyclidine Scrn Negative ng/mL (Negative) 08/31/24 10:03 Ur Amphetamines Screen Negative ng/mL (Negative) 08/31/24 10:03 U Benzodiazepines Scrn Positive ng/mL (Negative) H 08/31/24 10:03 Urine Cocaine Screen Negative ng/mL (Negative) 08/31/24 10:03 U Marijuana (THC) Screen Negative ng/mL (Negative) 08/31/24 10:03 All radiology interpretation(s) finalized by discharge Critical Care Time Critical Care Time: Critical Care Time: Yes Total Critical Care Time: 35 Attestation: The high probability of a clinically significant, sudden or life threatening deterioration of the patient's cardiovascular respiratory neurologic system(s) required my full and direct attention, intervention and personal management. The critical care time is as shown. This time is in addition to time spent performing any reported procedures but includes the following: [x] Data and vital sign review and interpretation [x] Patient assessment, examination and intervention [x] Documentation [x] Medication orders and management Discharge Plan Discharge Patient Disposition: Admitted As Inpatient Admit Provider: Sujata Wright Clinical Impression: Facial paralysis on left side, Status epilepticus, Acute CVA (cerebrovascular accident) Condition: Stable Coding Level of Care Code ED Cotton Ginner for Aldair Pino
--- NOTE | 2024-08-31 09:33 | CT_ITS ---
WS: [id number] CTA HEAD AND NECK TECHNIQUE: Contrast enhanced CTA of the head and neck with coronal and sagittal reformatted images and maximum intensity projection (MIP) images. NASCET criteria utilized. CLINICAL INFORMATION: acute CVa/seizure COMPARISON: None. DLP: 409.[address] scans at [facility] use at least one of these dose optimization techniques: automated exposure control; mA and/or kV adjustment per patient size (includes targeted exams where dose is matched to clinical indication); or iterative reconstruction. FINDINGS: RIGHT: RIGHT common carotid artery is patent. Mild calcified atheromatous plaque RIGHT carotid bulb. No significant stenosis. RIGHT ICA is patent to the skull base. LEFT: LEFT common carotid artery is patent. No significant LEFT ICA stenosis. LEFT ICA is patent to the skull base. Codominant and patent vertebral arteries bilaterally. Mild calcification intracranial segments. Basilar artery is patent. INTRACRANIAL CTA: Basilar artery is patent. Normal vascularity to the [place] [employer] territory bilaterally. Both ICAs are patent at the skull base. Mild cavernous carotid calcification. Normal vascularity to the VINICIO and MCA territories bilaterally. No evidence of proximal flow-limiting stenosis. Proximal subclavian arteries are patent. Endotracheal and enteric tubes. Fluid in the posterior nasopharynx and oropharynx from tube placements. Fluid in the thoracic esophagus. CT/CT angio headneck* [id number] IMPRESSION: 1. No significant ICA stenosis bilaterally. 2. No evidence of proximal flow-limiting intracranial stenosis. 3. Aortic arch calcification. 4. Endotracheal tubes and enteric tubes. 5. Advanced emphysematous changes in the lung apices.
[2024-08-31] MEDS: levETIRAcetam 1,000 MG/100 ML PREMIX 400 MG IV (09:39)
[2024-08-31] MEDS: LORazepam 2 mg/mL INJ 1 mL 1 MG IVP ×2 (09:39→10:48)
--- NOTE | 2024-08-31 09:40 | PC.NURSE ---
PATIENT FSBS 104 AT TRIAGE.
[2024-08-31 09:41] LABS: Glucose Point of Care 104 mg/dL (70-110)
--- NOTE | 2024-08-31 09:51 | XRR_ITS ---
PROCEDURE INFORMATION: Exam: XR Chest Exam date and time: 08/31/2024 10:05 AM Age: 88 years old Clinical indication: Device placement; Ett placement (vent status); Additional info: Intubation TECHNIQUE: Imaging protocol: Radiologic exam of the chest. Views: 1 view. COMPARISON: CT angio chest PE protcl [id number] 07/31/2024 5:20 AM FINDINGS: Tubes, catheters and devices: Endotracheal tube terminates 6.6 cm from the dang. Subdiaphragmatic enteric tube with side port within the stomach. Lungs: Hyperinflation consistent with emphysema. No focal consolidation. Pleural spaces: No pleural effusion. No pneumothorax. Heart/Mediastinum: Mild cardiomegaly. Bones/joints: Degenerative change. XR/XR chest 1V portable [id number] IMPRESSION: Endotracheal tube terminates 6.6 cm from the dang. Subdiaphragmatic enteric tube with side port within the stomach. No pneumothorax.
[2024-08-31 09:52] LABS: Basophils % 0.5 %; Eosinophils # 0.1 10^3/uL (0.0-0.8); Eosinophils % 1.9 %; Lymphocytes % 17.3 %; Mean Corpuscular HGB Conc 32.1 g/dL (30-55); Mean Corpuscular Hemoglobin 28.6 pg (27-33); Monocytes # 0.6 10^3/uL (0.2-0.9); Monocytes % 10.7 %; Neutrophils # 3.98 10^3/uL (1.8-7.7); Neutrophils % 68.9 %; Nucleated Red Blood Cells % 0 %; Platelet Count 227 10^3/cmm (157-399); Red Blood Count 4.72 10^6/uL (3.85-5.65); Red Cell Distribution Width 13.4 % (12.1-15.1); White Blood Count 5.78 10^3/uL (3.29-11.43)
[2024-08-31] MEDS: vecuronium 10 mg SDV IVP (09:53)
[2024-08-31] MEDS: etomidate 2 mg/mL INJ SDV 10 mL 20 MG IVP (09:53)
[2024-08-31] MEDS: sodium chloride 0.9% 1,000 ML 999 ML IV ×2 (10:00→22:51)
[2024-08-31 10:01] LABS: INR 0.94 (0.8-1.2)
[2024-08-31 10:02] LABS: Partial Thromboplastin Time 28.5 SECONDS (23.9-36.7)
[2024-08-31 10:10] LABS: Alanine Aminotransferase 15 U/L (0-41); Alkaline Phosphatase 163 U/L (40-130); Anion Gap 12.8 (5-19); Aspartate Amino Transferase 22 U/L (0-40); Blood Urea Nitrogen 12 mg/dL (8-23); Calcium 9.2 mg/dL (8.5-10.5); Carbon Dioxide 30 mmol/L (22-29); Chloride 101 mmol/L (98-107); Glucose 97 mg/dL (65-115); Osmolality Calculated 290 mOsm/kg (285-295); Potassium 3.8 mmol/L (3.5-5.1); Sodium 140 mmol/L (136-145); Total Bilirubin 0.4 mg/dL (0.15-1.2)
[2024-08-31 10:17] LABS: Bilirubin Urine Negative (Negative); Blood Urine Negative (Negative); Glucose Urine UA Negative (Normal); Ketones Urine Negative (Negative); Leukocyte Esterase Urine Negative (Negative); Nitrate Urine Negative (Negative); Protein Urine Negative (Negative); Specific Gravity, Urine 1.013 (1.005-1.030); Urine Appearance Clear (CLEAR); Urine Color Yellow (Yellow); Urobilinogen Urine 0.2 mg/dL (Negative)
[2024-08-31 10:17] LABS: ABG PCO2 37.6 mmHg (35-45); ABG PH Result 7.47 (7.35-7.45); Alveolar-Arterial Oxygen Gradi 20.5 mmHg (5-10); Arterial Blood Gas Hematocrit 36.5 % (42-52); Base Excess ABG 3.2 mmol/L (-2.0-2.0); Blood Gas Allen Test Pos; Blood Gas Operator Identificat WALCI; Blood Gas Sample Site Brachial, right; Blood Gas Sample Type Arterial; Blood Gas Tidal Volume 0.48; Carboxyhemoglobin 1.1 %THgb (0.4-20.1); HGB O2 Sat > 100.0 % (95-100); Ionized Calcium Level - ABG 1.1 mmol/L (1.1-1.4); Methemoglobin < 0.0 % (0.4-1.5); Oxygen Device VENT; Oxygen Saturation ABG > 99.1; PO2 FiO2 Ratio Arterial Blood 491; Potassium Level - ABG 3.2 mmol/L (3.5-5.0); Total Hemoglobin 11.9 g/dL (14-18)
[2024-08-31] MEDS: fentaNYL 1,000 MCG/100 ML BAG 2.5 MCG IV (10:19)
[2024-08-31] MEDS: midazolam hcl 100 MG/100 ML BAG IV (10:19)
[2024-08-31 10:20] LABS: Add Urine Microscopic? YES; Bacteria Urine None Seen /hpf; Hyaline Casts Urine 4.52 /lpf; RBC Urine 0-2 /hpf (0-2); Squamous Epithelial Cell Urine 0-5 /hpf (0-5); WBC Urine 0-5 /hpf (0-5)
[2024-08-31 10:24] LABS: Amphetamines Screen Urine Negative (Negative); Barbiturates Screen Urine Negative (Negative); Benzodiazepines Screen Urine Positive (Negative); Cocaine Screen Urine Negative (Negative); Opiate Screen Urine Negative (Negative); PCP Screen Urine Negative (Negative); THC Screen Urine Negative (Negative)
[2024-08-31 10:29] LABS: Magnesium 1.8 mg/dL (1.7-2.3)
--- NOTE | 2024-08-31 10:30 | PM.CONSULT ---
Providers/Reason For Consult Consulting Physician/Specialty*: Nestor Blnak MD neurology and epilepsy Reason for Consult*: Acute care/code stroke and status epilepticus manifested as focal motor seizure involving the left side of the patient's body associated with deviation of eyes to the left with eye fluttering left facial twitching and left eye twitching eye and left upper extremity clonic movements, left lower extremity paralysis with patient able to follow commands with the right arm and right leg and attempt to speak but focal clonic activity was later seen cooperating the right upper extremity with decreased level to follow commands despite IV Ativan 1 mg repeated x 1 and IV Keppra load 1 gram. Therefore patient was intubated and started on propofol but propofol was discontinued secondary to episodes of transient hypotension which improved with discontinuing propofol and starting IV fentanyl and IV Versed and IV fluids. Awaiting CT angiogram of the head and neck to assess for large vessel occlusion Primary Care Provider: ELVIA Mitchell History of Present Illness History of Present Illness Alessandro Duran is a 88 year old male retirement resident who was reported to be in his usual state of health with last known well observed on 08/31/2024 at 8:45 AM. The patient was reported to be rolling in his wheelchair and suddenly began rolling around in circles to the right and was observed to be slumped over on the left with left-sided paralysis. EMS was contacted. Code stroke was initiated at 9:17 AM on 08/31/2024 reporting that the ETA was 7 minutes to to [facility] [place] emergency department. The patient was taken to the CT scanner [facility] stat. While still in the CT scanner Dr. Lind and I evaluate the patient. The patient was displaying focal motor seizures involving the left side of his body involving his left face and a V1 through V3 distribution, deviation of his eyes to the left and clonic activity involving the left upper extremity with paralysis of the left lower extremity patient was able to follow commands with the right arm and right leg and was attempting to speak when asked questions. Clinically patient was displaying focal motor status epilepticus involving the right hemisphere. Stat noncontrast head CT revealed: Advanced small vessel changes with moderate parenchymal volume loss. Chronic infarct in the RIGHT temporal lobe with encephalomalacia. Tiny chronic lacunar infarct RIGHT thalamus. Chronic lacunar infarcts in the LEFT greater than RIGHT cerebellum. Vascular calcifications. Some images are degraded due to beam hardening artifact. In view of the patient's clinical condition with continued focal status epilepticus the patient was transported back to the emergency department room #10 and was given IV Ativan 1 mg x 1 dose which was repeated x 1 followed by 1 g load of IV Keppra. Patient's focal motor seizures involving the left side of his body continued as well as signs of similar activity occurring in the right upper extremity with patient responding less suggesting of right hemisphere focal motor status epilepticus with progression to involvement of the left hemisphere. As a result, I recommended the patient be intubated and started on IV propofol. Patient was given bolus of IV propofol following intubation and patient was observed to have transient decreased blood pressure and therefore he was placed in Trendelenburg and started on IV fluids. Propofol was discontinued and the patient's blood pressure normalized. The patient was started on IV fentanyl and IV midazolam. Since the patient's blood pressure was stable he was transported back to the CT scanner to obtain CT angiogram of the head and neck to assess for large vessel occlusion. I was informed that there are no ICU beds and therefore the patient will remain in emergency department room #[address] angiogram of the head and neck does not reveal large vessel occlusion. I spoke with my medical instrument technician who will plan to do bedside portable EEG to assess for any subclinical status epilepticus and to assist in determining if additional or alternative anticonvulsant medications are required. Will plan to continue IV Keppra 500 mg IV every 8 hours. NIH stroke score =13 (secondary to left gaze deviation with eye fluttering consistent with focal motor seizures involving the right frontal lobe = 1, mild left facial droop = 1, inability to move the left upper extremity = 3, no movement left lower extremity =4, speech dysarthric =2, speech reveal incomplete sentences =1, neglect left side =1) Point of contact glucose Accu-Chek [address] revealed remote strokes but no acute stroke Note: Since the patient was experiencing status epilepticus and is on Eliquis, the patient was not a candidate for intravenous thrombolytics and no intravenous thrombolytics were administered. Labs for CBC and comprehensive metabolic panel revealed potassium of 3.2 (normal equals 3.5-5.0). The other labs were unrevealing. Magnesium was within normal limits. Drug allergies: Amoxicillin and penicillins type reactions unknown IV propofol which resulted in transient hypotension (08/31/2024) Current medications: Trileptal (Oxcarbazepine) 300 mg p.o. twice daily Eliquis 5 mg p.o. twice daily for atrial fibrillation and history of pulmonary embolus Aspirin 81 mg p.o. daily Oxycodone/acetaminophen 1 p.o. every 6 hours as needed for pain Protonix 40 mg p.o. daily Zoloft 100 mg p.o. daily Flomax 0.4 mg p.o. daily Potassium chloride 10 meq p.o. daily Tylenol 500 mg p.o. every 6 hours as needed for pain Albuterol sulfate 2 puffs 4 times a day as needed for shortness of breath Menthol (Biofreeze) to be applied topically 3 times a day as needed Dulcolax 10 mg as needed constipation Symbicort 2 puffs inhaled twice daily Fleets enema 118 mL as needed constipation Flonase nasal spray Ipratropium/albuterol 3 mL inhale 3 times daily Latanoprost 1 drop at bedtime Ativan 0.5 mg p.o. daily Losartan 25 mg p.o. daily Magnesium hydroxide 30 mL p.o. as needed constipation Metoprolol 50 mg p.o. twice daily Nitrofurantoin 100 mg p.o. daily Zofran 4 mg p.o. every 4 hours as needed for nausea vomiting Past medical history: Atrial fibrillation treated with Eliquis Pulmonary embolus Chronic obstructive pulmonary disease Hypertension Hyperlipidemia Bacteremia due to Staphylococcus Peripheral vascular disease Cystitis Strokes Habits: Unable to obtain secondary to medical condition Family history: Unable to obtain secondary to medical condition Social history: The patient resides in a nursing care facility Review of Systems General: Reports: ROS unobtainable due to endotracheal tube and ROS unobtainable due to medical condition Medications/Allergies Home Medications ?Medication ?Instructions ?Recorded ?Confirmed ?Last Taken ?Type aspirin 81 mg chewable tablet 81 mg PO QAM 11/29/19 08/31/24 08/31/24 History oxcarbazepine 300 mg tablet 300 mg PO BID 11/29/19 08/31/24 08/31/24 History budesonide-formoterol HFA 80 2 puff inhalation BID #10.2 grams 03/17/23 08/31/24 08/31/24 Rx mcg-4.5 mcg/actuation aerosol inhaler (Symbicort) albuterol sulfate 90 mcg/actuation 2 puff inhalation QID PRN 03/18/23 08/31/24 04/04/24 History aerosol inhaler Shortness Of Breath latanoprost 0.005 % eye drops 1 drp ophthalmic (eye) BEDTIME 03/18/23 08/31/24 08/31/24 History tamsulosin 0.4 mg capsule 0.4 mg PO DAILY #30 caps 03/21/23 08/31/24 08/31/24 Rx fluticasone propionate 50 1 spray intranasal DAILY 04/05/24 08/31/24 08/31/24 History mcg/actuation nasal spray,suspension lorazepam 0.5 mg tablet 0.5 mg PO DAILY 04/05/24 08/31/24 08/26/24 History potassium chloride 10 mEq 10 meq PO DAILY 04/05/24 08/31/24 08/31/24 History capsule,extended release oxycodone-acetaminophen 5 mg-325 1 tab PO Q6H PRN Moderate Pain #10 04/08/24 08/31/24 04/08/24 07:50 Rx mg tablet tabs sennosides 8.6 mg-docusate sodium 1 tab PO DAILY #10 tabs 04/08/24 08/31/24 08/30/24 Rx 50 mg tablet (Stool Softener-Laxative) Lactobacillus rhamnosus GG 10 1 cap PO DAILY 07/31/24 08/31/24 Unknown History billion cell capsule (Culturelle) apixaban 5 mg tablet (Eliquis) 5 mg PO BID 07/31/24 08/31/24 08/31/24 History bisacodyl 10 mg rectal suppository 10 mg TX DAILY PRN Constipation 07/31/24 08/31/24 Unknown History (Dulcolax (bisacodyl)) dextromethorphan-guaifenesin 5 10 ml PO Q4H PRN Cough 07/31/24 08/31/24 Unknown History mg-100 mg/5 mL oral liquid (Robitussin Cough-Chest Congestion DM) losartan 25 mg tablet 25 mg PO DAILY 07/31/24 08/31/24 08/31/24 History magnesium hydroxide 400 mg/5 mL 30 ml PO DAILY PRN Constipation 07/31/24 08/31/24 Unknown History oral suspension (Milk of Magnesia) menthol 4 % topical gel (Biofreeze 1 applic topical TID PRN Pain 07/31/24 08/31/24 Unknown History (menthol)) metoprolol tartrate 50 mg tablet 50 mg PO BID 07/31/24 08/31/24 08/31/24 History ondansetron HCl 4 mg tablet 4 mg PO Q4H PRN Nausea And Vomiting 07/31/24 08/31/24 08/29/24 History sertraline 100 mg tablet 100 mg PO DAILY 07/31/24 08/31/24 08/31/24 History sodium phosphates 19 gram-7 118 ml TX DAILY PRN Constipation 07/31/24 08/31/24 Unknown History gram/118 mL enema (Fleet Enema) acetaminophen 500 mg tablet 500 mg PO Q6H PRN Pain #10 tabs 08/02/24 08/31/24 08/24/24 Rx ipratropium 0.5 mg-albuterol 3 mg 3 ml inhalation TID shortness of 08/02/24 08/31/24 04/04/24 Rx (2.5 mg base)/3 mL nebulization breath or wheezing #90 mL soln nitrofurantoin macrocrystal 100 mg 100 mg PO DAILY 08/31/24 08/31/24 08/31/24 History capsule pantoprazole 40 mg tablet,delayed 40 mg PO DAILY 08/31/24 08/31/24 08/31/24 History release Allergies Allergy/AdvReac Type Severity Reaction Status Date / Time amoxicillin Allergy Unknown Verified 07/28/24 22:17 Penicillins Allergy Unknown Verified 07/28/24 22:17 PFSH Acute PFSH: Medical History COPD exacerbation Left wrist fracture Anemia Pulmonary embolism Urinary tract infection Dizziness Frequent falls Closed left hip fracture Septic shock UTI (urinary tract infection) Acute exacerbation of chronic obstructive airways disease Pulmonary hypertension Diastolic congestive heart failure History of CVA (cerebrovascular accident) Hyperlipidemia Anxiety History of seizure disorder Hypertension History of seizures COPD (chronic obstructive pulmonary disease) Prostate CA Status post radiation Surgical History Status post-operative repair of closed fracture of left hip History of excision of lesion L neck History of cataract surgery History of tonsillectomy Family History Mother , 98, healthy No problems noted. Father CAD (coronary artery disease) Social History Smoking and tobacco/nicotine status: former use of tobacco/nicotine Quit status (tobacco/nicotine): has quit using Year quit tobacco: 20 years ago Second hand smoke exposure: No Alcohol intake: never Substance/Drug Use: never Lives independently: Yes Household members: none Vitals/I&O/Wt Last Vital Signs Temp 98.2 F 08/31/24 09:25 Pulse 100 08/31/24 09:25 Resp 14 08/31/24 10:05 BP 209/128 08/31/24 09:25 Pulse Ox 94 08/31/24 09:25 O2 Del Method Room Air 08/31/24 09:25 FiO2 100 08/31/24 10:05 08/30/24 08/31/24 08/31/24 22:59 06:59 14:59 Intake Total 100 / 100 Balance 100 / 100 Weight last 48 hrs Weight 130 lb Physical Exam Narrative: NIH stroke score =13 (secondary to left gaze deviation with eye fluttering consistent with focal motor seizures involving the right frontal lobe = 1, mild left facial droop = 1, inability to move the left upper extremity = 3, no movement left lower extremity =4, speech dysarthric =2, speech reveal incomplete sentences =1, neglect left side =1) Point of contact glucose Accu-Chek [address] revealed remote strokes but no acute stroke The patient was alert and able to follow commands with the right arm and right leg. He attempted to speak. His speech was dysarthric. Patient displayed deviation of his eyes to the left with rapid eye fluttering and clonic activity involving the left face and a V1 through V3 distribution and left upper extremity with no movement in the left lower extremity with extensor plantar response in the left great toe without clonus. While still in the emergency department room #10 the patient was displaying clonic activity progressing to involve the right upper extremity with patient responding less to command. This was in spite of the patient being given Ativan 1 mg x 1 dose and repeated 1 mg x 1 dose and IV Keppra load 1 g. Therefore I spoke with the ER physician Dr. Lind and recommended patient be intubated and sedated for right hemisphere status epilepticus with progression to involve the left hemisphere. Patient was started on IV propofol and later changed to IV fentanyl and IV Versed secondary to transient hypotension on IV propofol. Pupils 3 to 4 mm. Deep tendon reflex revealed extensor plantar response on the left and equivocal on the right. There was no clonus. Sensory examination was intact to touch. There was some neglect involving the left side of his body. Extinction on double sensory stimulation could not be performed. Throat clear. Lungs clear. Heart regular rhythm and rate. Extremities were negative for cyanosis or edema. Data 08/31/24 09:38 08/31/24 09:38 A&P Assessment and plan (1) Status epilepticus: Impression: 1. Right hemisphere status epilepticus with later involvement of the left upper extremity requiring intubation and IV sedation for status epilepticus with IV propofol which was discontinued secondary to transient hypotension followed by IV fentanyl and IV Versed 2. 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 Note: Stat CT angiogram 09/01/2023 revealed no acute strokes only remote strokes. CT angiogram of the head and neck ordered to assess for large vessel occlusion to determine if patient is candidate for thrombectomy if CT angiogram of the head and neck reveals large vessel occlusion. Note: Since the patient is on Eliquis for atrial fibrillation and history of pulmonary embolus and clinical status epilepticus, the patient was not a candidate for intravenous thrombolytics and no intravenous thrombolytics were administered 3. History of remote strokes 4. History of atrial fibrillation treated with Eliquis 5. Chronic obstructive pulmonary disease Plan: 1. Agree with obtaining CT angiogram of the head and neck to assess for large vessel occlusion and transfer patient to a facility that is capable performing thrombectomy for large vessel occlusion if CT angiogram the head and neck is remarkable for large vessel occlusion 2. Continue IV fentanyl and IV Versed for status epilepticus 3. Continue IV Keppra 500 mg IV every 6 hours 4. Trough Keppra level 09/01/2024 5. Continue intubation per protocol 6. I have spoken with the medical instrument technician who is on standby to perform bedside EEG to assess for subclinical status epilepticus and to assist in determining if additional or alternative anticonvulsant medications are required 7. Note: Please head to the patient's allergy list the patient is sensitive to IV propofol which resulted in transient hypotension 8. Continue to monitor vital signs per protocol for stroke, status epilepticus, and medical conditions 9. If portable surface EEG recording reveals status epilepticus will recommend patient be transferred to a facility that has long-term inpatient video EEG monitoring for further treatment and evaluation (2) Facial paralysis on left side: (3) Shin's paralysis: PDMP PDMP Reviewed: Not Reviewed Consult Attestations Medical Necessity Statement: The patient was evaluated by neurology for acute care/code stroke and status epilepticus requiring intubation and sedation with IV propofol which was later changed to IV fentanyl and midazolam secondary to hypotension which was transient secondary to propofol Coding Level of Care Code 40305 Diagnoses Status epilepticus G40.901 Facial paralysis on left side G51.0 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
[2024-08-31 10:32] LABS: UA Slide Review UA Slide Review Perf
[2024-08-31 10:35] LABS: Add Urine Culture? No
[2024-08-31] MEDS: iohexol 350 mg/mL 500 mL Btl (per mL) IV (10:38)
--- NOTE | 2024-08-31 11:19 | PM.HP ---
Providers/Chief Complaint Admitting Physician: Sujata Wright MD Primary Care Provider: ELVIA Mitchell Chief Complaint: Stroke Alert History of Present Illness Alessandro Duran is a 88 year old male who presented to the emergency room with concerns for possible stroke. He was at his more recent baseline state of functioning this morning able to take his medications and such but later on developed acute left-sided weakness and was not able to maneuver the controls bring him to the attention of staff. Stroke alert was called and he was brought into the ER. Initial NIH stroke scale score by Dr. Yarbrough was 13. He was noted to have focal left upper extremity seizure activity and later right upper extremity seizure activity as well. The eyes and head were deviated to the left during the seizure episodes also and Mr. Duran was ultimately intubated for airway protection and loaded with Keppra. CT of the head as well as CTA of the head and neck were done. Patient was not a candidate for TNK or thrombectomy and is being admitted to the ICU. Additional history was obtained from patient's family that he has had seizures in the past. He is on oxcarbazepine for seizure activity and has been on Keppra in the past as well. In addition to what are thought to be seizures she has had some tremors of both upper extremities that are most notable during times of significant stress. The left sided weakness today that was noted is new. History is limited to what family and ER/neurology can provide as he himself is unable to provide any history. He was talking or attempting to answer questions in the emergency room. Review of Systems General: Reports: ROS unobtainable due to endotracheal tube and ROS unobtainable due to medical condition Medications/Allergies Home Medications ?Medication ?Instructions ?Recorded ?Confirmed ?Last Taken ?Type aspirin 81 mg chewable tablet 81 mg PO QAM 11/29/19 08/31/24 08/31/24 History oxcarbazepine 300 mg tablet 300 mg PO BID 11/29/19 08/31/24 08/31/24 History budesonide-formoterol HFA 80 2 puff inhalation BID #10.2 grams 03/17/23 08/31/24 08/31/24 Rx mcg-4.5 mcg/actuation aerosol inhaler (Symbicort) albuterol sulfate 90 mcg/actuation 2 puff inhalation QID PRN 03/18/23 08/31/24 04/04/24 History aerosol inhaler Shortness Of Breath latanoprost 0.005 % eye drops 1 drp ophthalmic (eye) BEDTIME 03/18/23 08/31/24 08/31/24 History tamsulosin 0.4 mg capsule 0.4 mg PO DAILY #30 caps 03/21/23 08/31/24 08/31/24 Rx fluticasone propionate 50 1 spray intranasal DAILY 04/05/24 08/31/24 08/31/24 History mcg/actuation nasal spray,suspension lorazepam 0.5 mg tablet 0.5 mg PO DAILY 04/05/24 08/31/24 08/26/24 History potassium chloride 10 mEq 10 meq PO DAILY 04/05/24 08/31/24 08/31/24 History capsule,extended release oxycodone-acetaminophen 5 mg-325 1 tab PO Q6H PRN Moderate Pain #10 04/08/24 08/31/24 04/08/24 07:50 Rx mg tablet tabs sennosides 8.6 mg-docusate sodium 1 tab PO DAILY #10 tabs 04/08/24 08/31/24 08/30/24 Rx 50 mg tablet (Stool Softener-Laxative) Lactobacillus rhamnosus GG 10 1 cap PO DAILY 07/31/24 08/31/24 Unknown History billion cell capsule (Culturelle) apixaban 5 mg tablet (Eliquis) 5 mg PO BID 07/31/24 08/31/24 08/31/24 History bisacodyl 10 mg rectal suppository 10 mg KS DAILY PRN Constipation 07/31/24 08/31/24 Unknown History (Dulcolax (bisacodyl)) dextromethorphan-guaifenesin 5 10 ml PO Q4H PRN Cough 07/31/24 08/31/24 Unknown History mg-100 mg/5 mL oral liquid (Robitussin Cough-Chest Congestion DM) losartan 25 mg tablet 25 mg PO DAILY 07/31/24 08/31/24 08/31/24 History magnesium hydroxide 400 mg/5 mL 30 ml PO DAILY PRN Constipation 07/31/24 08/31/24 Unknown History oral suspension (Milk of Magnesia) menthol 4 % topical gel (Biofreeze 1 applic topical TID PRN Pain 07/31/24 08/31/24 Unknown History (menthol)) metoprolol tartrate 50 mg tablet 50 mg PO BID 07/31/24 08/31/24 08/31/24 History ondansetron HCl 4 mg tablet 4 mg PO Q4H PRN Nausea And Vomiting 07/31/24 08/31/24 08/29/24 History sertraline 100 mg tablet 100 mg PO DAILY 07/31/24 08/31/24 08/31/24 History sodium phosphates 19 gram-7 118 ml KS DAILY PRN Constipation 07/31/24 08/31/24 Unknown History gram/118 mL enema (Fleet Enema) acetaminophen 500 mg tablet 500 mg PO Q6H PRN Pain #10 tabs 08/02/24 08/31/24 08/24/24 Rx ipratropium 0.5 mg-albuterol 3 mg 3 ml inhalation TID shortness of 08/02/24 08/31/24 04/04/24 Rx (2.5 mg base)/3 mL nebulization breath or wheezing #90 mL soln nitrofurantoin macrocrystal 100 mg 100 mg PO DAILY 08/31/24 08/31/24 08/31/24 History capsule pantoprazole 40 mg tablet,delayed 40 mg PO DAILY 08/31/24 08/31/24 08/31/24 History release Allergies Allergy/AdvReac Type Severity Reaction Status Date / Time amoxicillin Allergy Unknown Verified 07/28/24 22:17 Penicillins Allergy Unknown Verified 07/28/24 22:17 PFSH Acute PFSH: Medical History (Updated 09/01/24 @ 00:27 by Sujata Wright MD) Hard of hearing will not tell you he cannot hear, will nod and laugh History of DVT (deep vein thrombosis) Recurrent UTI Benign prostatic hyperplasia with lower urinary tract symptoms PVD (peripheral vascular disease) Atrial fibrillation Anemia Pulmonary embolism Dizziness Frequent falls Septic shock Pulmonary hypertension Diastolic congestive heart failure History of CVA (cerebrovascular accident) Hyperlipidemia Anxiety Hypertension History of seizures COPD (chronic obstructive pulmonary disease) Prostate CA Status post radiation Surgical History (Updated 09/01/24 @ 00:02 by Sujata Wright MD) Status post open reduction and internal fixation (ORIF) of fracture (03/2024) left wrist Status post-operative repair of closed fracture of left hip (03/2024) left intertrochanteric femur nail History of excision of lesion L neck History of cataract surgery History of tonsillectomy Family History Mother , 98, healthy No problems noted. Father CAD (coronary artery disease) Social History Smoking and tobacco/nicotine status: former use of tobacco/nicotine Quit status (tobacco/nicotine): has quit using Year quit tobacco: 20 years ago Second hand smoke exposure: No Alcohol intake: never Substance/Drug Use: never Lives independently: Yes Household members: none Other PFSH information: PFSH not updated/unobtainable from patient: due to endotracheal tube and due to medical condition Vitals/I&O/Wt Last Vital Signs Temp 98.2 F 08/31/24 09:25 Pulse 100 08/31/24 09:25 Resp 14 08/31/24 10:41 BP 209/128 08/31/24 09:25 Pulse Ox 94 08/31/24 09:25 O2 Del Method Room Air 08/31/24 09:25 FiO2 50 08/31/24 10:41 08/30/24 08/31/24 08/31/24 22:59 06:59 14:59 Intake Total 104.325 / 104.325 Balance 104.325 / 104.325 Weight last 48 hrs Weight 58.967 kg Physical Exam Narrative: Patient is intubated and sedated. Pupils are equally reactive. Corneal reflexes intact. Tearing right eye noted. May have a slight right-sided facial droop but difficult to adriana with ETT arauz in place while sedated. Gag intact. Neck is supple. Lungs clear except for upper airway noise with during cough after evaluation of gag reflex. Regular rhythm. 1+ pulses x 4. Abdomen soft. Positive bowel sounds. Reducible hernia RLQ/inguinal area. Grewal noted. External genitalia normal. Extremities without edema. Left toe up-going. Right equivocal. DTRs intact and equal at both AC fossa and both ankles. Rhythmic movement right hand and forearm at several times during evaluation. Pupils remain reactive during these events, holding hand quiets the tremor like movements and persists after letting go of the hand for a few moments at least. Skin: NARRATIVE SKIN EXAM: Urinary Catheter Management: Grewal: Cath Placed During This Visit: yes Urinary Catheter Date of Insertion: 08/31/24 Urinary Catheter Time of Insertion: 09:45 Data 08/31/24 09:38 08/31/24 09:38 Other Labs: Radiology Impressions Head CT 08/31/24 09:25 IMPRESSION: 1. No evidence of intracranial hemorrhage or mass effect. 2. Advanced small vessel changes. Moderate parenchymal volume loss. 3. Chronic infarcts similar to previous described above. 4. No acute intracranial findings. Notified Simón Lind DO at 08/31/2024 9:38 AM. Head/Neck CTA 08/31/24 09:33 IMPRESSION: 1. No significant ICA stenosis bilaterally. 2. No evidence of proximal flow-limiting intracranial stenosis. 3. Aortic arch calcification. 4. Endotracheal tubes and enteric tubes. 5. Advanced emphysematous changes in the lung apices. Chest X-Ray 08/31/24 09:51 IMPRESSION: Endotracheal tube terminates 6.6 cm from the dang. Subdiaphragmatic enteric tube with side port within the stomach. No pneumothorax. Laboratory Results WBC 5.78 10^3/uL (3.29-11.43) 08/31/24 09:38 RBC 4.72 10^6/uL (3.85-5.65) 08/31/24 09:38 Hgb 13.50 g/dL (11.27-16.99) 08/31/24 09:38 Hct 42.0 % (37-53) 08/31/24 09:38 MCV 89.0 fl (82-101) 08/31/24 09:38 MCH 28.6 pg (27-33) 08/31/24 09:38 MCHC 32.1 g/dL (30-55) 08/31/24 09:38 RDW 13.4 % (12.1-15.1) 08/31/24 09:38 Plt Count 227 10^3/cmm (157-399) 08/31/24 09:38 MPV 9.0 fL (7.4-10.4) 08/31/24 09:38 Neut % (Auto) 68.9 % 08/31/24 09:38 Lymph % (Auto) 17.3 % 08/31/24 09:38 [place] % (Auto) 10.7 % 08/31/24 09:38 Eos % (Auto) 1.9 % 08/31/24 09:38 Baso % (Auto) 0.5 % 08/31/24 09:38 Neut # (Auto) 3.98 10^3/uL (1.8-7.7) 08/31/24 09:38 Lymph # (Auto) 1.0 10^3/uL (0.8-4.8) 08/31/24 09:38 [place] # (Auto) 0.6 10^3/uL (0.2-0.9) 08/31/24 09:38 Eos # (Auto) 0.1 10^3/uL (0.0-0.8) 08/31/24 09:38 Baso # (Auto) 0.0 10^3/uL (0.0-0.1) 08/31/24 09:38 Nucleated RBC % (auto) 0 % 08/31/24 09:38 Nucleated RBCs # 0.0 /100WBC 08/31/24 09:38 PT 13.20 SECONDS (12.1-14.9) 08/31/24 09:38 INR 0.94 (0.8-1.2) 08/31/24 09:38 APTT 28.5 SECONDS (23.9-36.7) 08/31/24 09:38 Specimen Type Arterial 08/31/24 10:06 Sample Site Brachial, right 08/31/24 10:06 ABG pH 7.47 (7.35-7.45) H 08/31/24 10:06 ABG pCO2 37.6 mmHg (35-45) 08/31/24 10:06 ABG pO2 491.0 mmHg (80.0-100.0) H 08/31/24 10:06 ABG PO2/FiO2 Ratio 491 08/31/24 10:06 ABG HCO3 27.0 mmol/L (22-26) H 08/31/24 10:06 ABG O2 Saturation > 99.1 08/31/24 10:06 ABG Base Excess 3.2 mmol/L (-2.0-2.0) H 08/31/24 10:06 Ruben Test Pos 08/31/24 10:06 A-a O2 Gradient 20.5 mmHg (5-10) H 08/31/24 10:06 Hematocrit 36.5 % (42-52) L 08/31/24 10:06 Hgb O2 Saturation > 100.0 % (95-100) H 08/31/24 10:06 Carboxyhemoglobin 1.1 %THgb (0.4-20.1) 08/31/24 10:06 Methemoglobin < 0.0 % (0.4-1.5) L 08/31/24 10:06 Total Hemoglobin 11.9 g/dL (14-18) L 08/31/24 10:06 Sodium 140.0 mmol/L (131-143) 08/31/24 10:06 Potassium 3.2 mmol/L (3.5-5.0) L 08/31/24 10:06 Glucose 94.0 mg/dL (70-115) 08/31/24 10:06 Ionized Calcium 1.1 mmol/L (1.1-1.4) 08/31/24 10:06 O2 Delivery Device Vent 08/31/24 10:06 FiO2 100.0 % 08/31/24 10:06 Tidal Volume 0.48 08/31/24 10:06 PEEP 5.0 cmH20 08/31/24 10:06 Toll Transmission Worker ID [place] 08/31/24 10:06 Sodium 140 mmol/L (136-145) 08/31/24 09:38 Potassium 3.8 mmol/L (3.5-5.1) 08/31/24 09:38 Chloride 101 mmol/L (98-107) 08/31/24 09:38 Carbon Dioxide 30 mmol/L (22-29) H 08/31/24 09:38 Anion Gap 12.8 (5-19) 08/31/24 09:38 BUN 12 mg/dL (8-23) 08/31/24 09:38 Creatinine 0.6 mg/dL (0.7-1.2) L 08/31/24 09:38 GFR Calculation Not Reportable 08/31/24 09:38 Glucose 97 mg/dL (65-115) 08/31/24 09:38 POC Glucose 104 mg/dL (70-110) 08/31/24 09:37 Calculated Osmolality 290 mOsm/kg (285-295) 08/31/24 09:38 Calcium 9.2 mg/dL (8.5-10.5) 08/31/24 09:38 Magnesium 1.8 mg/dL (1.7-2.3) 08/31/24 09:38 Total Bilirubin 0.4 mg/dL (0.15-1.2) 08/31/24 09:38 AST 22 U/L (0-40) 08/31/24 09:38 ALT 15 U/L (0-41) 08/31/24 09:38 Alkaline Phosphatase 163 U/L (40-130) H 08/31/24 09:38 Total Protein 7.0 g/dL (6.6-8.7) 08/31/24 09:38 Albumin 4.0 g/dL (3.5-5.2) 08/31/24 09:38 Globulin 3.0 g/dL (1.3-4.6) 08/31/24 09:38 Urine Color Yellow (Yellow) 08/31/24 10:03 Urine Appearance Clear (CLEAR) 08/31/24 10:03 Urine pH 8.0 (5-7) A 08/31/24 10:03 Ur Specific [place] 1.013 (1.005-1.030) 08/31/24 10:03 Urine Protein Negative (Negative) 08/31/24 10:03 Urine Glucose (UA) Negative (Normal) 08/31/24 10:03 Urine Ketones Negative (Negative) 08/31/24 10:03 Urine Blood Negative (Negative) 08/31/24 10:03 Urine Nitrate Negative (Negative) 08/31/24 10:03 Urine Bilirubin Negative (Negative) 08/31/24 10:03 Urine Urobilinogen 0.2 mg/dL (Negative) 08/31/24 10:03 Ur Leukocyte Esterase Negative (Negative) 08/31/24 10:03 Urine RBC 0-2 /hpf (0-2) 08/31/24 10:03 Urine WBC 0-5 /hpf (0-5) 08/31/24 10:03 Ur Squamous Epith Cells 0-5 /hpf (0-5) 08/31/24 10:03 Amorphous Sediment Not Reportable 08/31/24 10:03 Urine Bacteria None seen /hpf (NONE) 08/31/24 10:03 Hyaline Casts 4.52 /lpf 08/31/24 10:03 Urine Yeast Trace /hpf 08/31/24 10:03 Urine Opiates Screen Negative ng/mL (Negative) 08/31/24 10:03 Ur Barbiturates Screen Negative ng/mL (Negative) 08/31/24 10:03 Ur Phencyclidine Scrn Negative ng/mL (Negative) 08/31/24 10:03 Ur Amphetamines Screen Negative ng/mL (Negative) 08/31/24 10:03 U Benzodiazepines Scrn Positive ng/mL (Negative) H 08/31/24 10:03 Urine Cocaine Screen Negative ng/mL (Negative) 08/31/24 10:03 U Marijuana (THC) Screen Negative ng/mL (Negative) 08/31/24 10:03 A&P Assessment and plan (1) Acute CVA (cerebrovascular accident): With associated left-sided weakness. Has had previous strokes. Not deemed a candidate for TNK or thrombectomy. Chronically on Eliquis and aspirin. - Serial neuroexams - Will need PT, OT and speech evaluation once extubated - Had echocardiogram last monthShowing normal ejection fraction at 60% and mild aortic valve stenosis with aortic valve area of 2.1 cm? and mean gradient of 7.4 mmHg (2) Status epilepticus: At presentation, involving focal motor seizures with left upper extremity movement and head deviation and eye deviation to the left. Later also noted to have some tremors of right upper extremity. Family did reveal that when he is anxious or nervous he will shake his hands. Has been on Keppra in the past. - Continue Keppra load - EEG planned - Keppra Trough tomorrow - Currently holding oxcarbazaepine (3) Endotracheally intubated: Intubated in the ER for airway protection in the setting of status epilepticus with since CVA. With sedation administration has not woken up enough to consider weaning today. - Wean ventilator settings and off of ventilator as able (4) COPD (chronic obstructive pulmonary disease): Not currently acutely exacerbated but has been recently exacerbated with influenza A and other pulmonary infections - Breathing treatments as needed including inhaled steroids Qualifiers: COPD type: emphysema Emphysema type: panlobular Qualified Code(s): J43.1 - Panlobular emphysema (5) Hypertension: Chronically on losartan and metoprolol. Has had variable blood pressures ranging from 80s on various medications and when initially presented to highs of 170s systolic and subsequent hypotension/low maps with sedation. - Plan to continue losartan and metoprolol as blood pressures allow - Will need to titrate sedation accordingly for blood pressures Qualifiers: Hypertension type: primary hypertension Qualified Code(s): I10 - Essential (primary) hypertension (6) Chronic anticoagulation: Chronically on Eliquis due to history of atrial fibrillation as well as prior history of PE and DVT. Last dose this morning. - Continue Eliquis per NG tube until able to take by mouth (7) Atrial fibrillation: Currently in sinus rhythm. Is on chronic anticoagulation and has a history of A-fib with RVR. Chronically maintained to beta-blockade. - Continue home metoprolol Qualifiers: Atrial fibrillation type: paroxysmal Qualified Code(s): I48.0 - Paroxysmal atrial fibrillation (8) Benign prostatic hyperplasia with lower urinary tract symptoms: Chronically on tamsulosin - Continue home Flomax (9) Anxiety: Chronically on sertraline and lorazepam - Home lorazepam currently held as on Versed - Continue home sertraline (10) Recurrent UTI: Chronically on nitrofurantoin at bedtime - Continue usual nitrofurantoin (11) Hard of hearing: Will not tell you that he cannot hear and is very hard of hearing, often will laugh or nod - Discussed with nursing staff (12) Cognitive decline: Family has noted cognitive decline particularly over the past year with all of the medical issues he has had from orthopedic and infectious standpoint. He defers to them to make decisions for him or sign things. This is exacerbated by difficulty with hearing. - Aware, will be pertinent during attempts to extubate and may be helpful for family to be at bedside Plan - Has had septic shock with recent admissions as well as other admissions with sepsis from various infections including urinary, bacteremia, viral process such as influenza A. Low threshold for reevaluating for source of infection. VTE prophylaxis: Eliquis GI Prophylaxis: PPI Antibiotics: Chronically on nitrofurantoin, no new antibiotics added thus far Pending studies: EEG, am labs, sputum culture, keppra level Telemetry: Ordered secondary to intubation Grewal: Ordered secondary to intubation and need to monitor urine output Line(s): peripheral IVs Disposition plan: Anticipate return to skilled facility when medically stable Code Status: Limited resuscitation as per discussion with Juan patient's son. Basically no CPR but all other resuscitation is okay. Discussions around DNR status have just begun and it has been challenging due to patient's understanding or lack thereof Supportive care otherwise Findings, concerns and plans were discussed with patient and they were given an opportunity to ask questions PDMP PDMP Reviewed: Not Reviewed Attestations Medical Necessity Statement*: Anticipated stay greater than two midnights In this gentleman presenting with a stroke alert and status epilepticus who was ultimately intubated for airway protection. Monitoring and management of neurological status and respiratory status as noted above. Coding Level of Care Code 81132 High MDM includes number and complexity of problems actively addressed during encounter, amount and/or complexity of data reviewed/ordered [ previous or external records, resulted lab(s)/test(s), ordered lab(s)/test(s), independent historian (Family) and other healthcare professional discussion (Dr. Yarbrough)] and described risk of complication, morbidity or mortality of management (Discussions with family around CODE STATUS in addition to neuro and respiratory management) as documented and High Time for a total of 90 minutes, includes reviewing past or interval history, examining/interviewing patient, placing orders, updating patient/family/other support, discussing plan of care with staff, communicating with other healthcare providers and documenting encounter Diagnoses Acute CVA (cerebrovascular accident) I63.9 Status epilepticus G40.901 Endotracheally intubated Z97.8 Panlobular emphysema J43.1 COPD type: emphysema Emphysema type: panlobular Primary hypertension I10 Hypertension type: primary hypertension Chronic anticoagulation Z79.01 Paroxysmal atrial fibrillation I48.0 Atrial fibrillation type: paroxysmal Benign prostatic hyperplasia with lower urinary tract symptoms N40.1 Anxiety F41.9 Recurrent UTI N39.0 Hard of hearing H91.90 Cognitive decline R41.89
--- NOTE | 2024-08-31 12:19 | PM.ACPR ---
Documented by User: Emile Hart MA 08/31/24 12:57 EEG Routine Details of Procedure Details/Comments: Per Dr. Nestor Gordon note 08/31/24 (Emile Hart) In view of the patient's clinical condition with continued focal status epilepticus the patient was transported back to the emergency department room #10 and was given IV Ativan 1 mg x 1 dose which was repeated x 1 followed by 1 g load of IV Keppra. Patient's focal motor seizures involving the left side of his body continued as well as signs of similar activity occurring in the right upper extremity with patient responding less suggesting of right hemisphere focal motor status epilepticus with progression to involvement of the left hemisphere. As a result, I recommended the patient be intubated and started on IV propofol. Patient was given bolus of IV propofol following intubation and patient was observed to have transient decreased blood pressure and therefore he was placed in Trendelenburg and started on IV fluids. Propofol was discontinued and the patient's blood pressure normalized. The patient was started on IV fentanyl and IV midazolam. Since the patient's blood pressure was stable he was transported back to the CT scanner to obtain CT angiogram of the head and neck to assess for large vessel occlusion. I was informed that there are no ICU beds and therefore the patient will remain in emergency department room #[address] angiogram of the head and neck does not reveal large vessel occlusion. I spoke with my geothermal hvac technician who will plan to do bedside portable EEG to assess for any subclinical status epilepticus and to assist in determining if additional or alternative anticonvulsant medications are required. Documented by User: Nestor Yarbrough MD 08/31/24 13:57 EEG Routine Details of Procedure Details/Comments: Per Dr. Nestor Gordon note 08/31/24 (Emile Hart) In view of the patient's clinical condition with continued focal status epilepticus the patient was transported back to the emergency department room #10 and was given IV Ativan 1 mg x 1 dose which was repeated x 1 followed by 1 g load of IV Keppra. Patient's focal motor seizures involving the left side of his body continued as well as signs of similar activity occurring in the right upper extremity with patient responding less suggesting of right hemisphere focal motor status epilepticus with progression to involvement of the left hemisphere. As a result, I recommended the patient be intubated and started on IV propofol. Patient was given bolus of IV propofol following intubation and patient was observed to have transient decreased blood pressure and therefore he was placed in Trendelenburg and started on IV fluids. Propofol was discontinued and the patient's blood pressure normalized. The patient was started on IV fentanyl and IV midazolam. Since the patient's blood pressure was stable he was transported back to the CT scanner to obtain CT angiogram of the head and neck to assess for large vessel occlusion. I was informed that there are no ICU beds and therefore the patient will remain in emergency department room #[address] angiogram of the head and neck does not reveal large vessel occlusion. I spoke with my geothermal hvac technician who will plan to do bedside portable EEG to assess for any subclinical status epilepticus and to assist in determining if additional or alternative anticonvulsant medications are required. EEG CPT code 78680 coma or sleep EEG TEMPLATE: This is a 19 channel routine video surface EEG recording utilizing the [employer] software with surface and EKG electrodes. The procedure was performed utilizing the international 10-20 system. Patient name: Alessandro Duran Date of : 1935 Patient age [age] years old Identification number:[id number] Referring Physician: Nestor Yarbrough MD EEG#: EEG Start time: 12:36:50 EEG End time: 12:57:42 Duration of study: 20 minutes Date of study: 08/31/2024 Reason for study: Status epilepticus requiring intubation and sedation with IV propofol, followed by IV fentanyl and IV midazolam, IV Keppra Skull defects: None Condition of recording: The patient was sedated on IV fentanyl and IV midazolam (note: IV propofol was discontinued secondary to transient hypotension) Cooperation: Patient sedated and intubated Activation procedures: Tactile stimulation Medications: IV fentanyl, IV midazolam, IV Keppra, Eliquis, Trileptal Background activity: Background activity during the sedated recording consisted of generalized 5 to 6 Hz theta slowing associated with generalized delta slowing this activity was associated with intermittent low voltage beta activity centrally and anteriorly. During the recording the patient was briefly evaluated by neurology and patient was moving the toes somewhat to tactile stimuli. Deep tendon reflexes continues to reveal extensor plantar response on the left and equivocal to extensor plantar response on the right. There was no clonus. Interictal activity: None Ictal activity: None Impression: This is an unremarkable portable surface EEG recording revealing only generalized slowing of the background rhythm secondary to IV medications prescribed for seizures in a patient who presented with clinical status epilepticus manifested as focal motor seizures involving the left side of his body with deviation of his eyes to the left which later progressed to involve clonic activity also seen in the right upper extremity requiring intubation and sedation and treatment for status epilepticus with IV Ativan, IV Keppra, followed by short course of IV propofol which was discontinued secondary to transient hypotension with continue treatment for clinical status epilepticus with IV fentanyl and IV midazolam with stabilization of the patient's seizures clinically and electroencephalographicly. Note: No subclinical or clinical status epilepticus was observed. Physician name/Signature: Nestor Yarbrough MD investigative assistant/Signature: Alysha Hart
--- NOTE | 2024-08-31 14:51 | PC.NURSE ---
provider changed from Propofol drip to fentanyl and versed drips, d/t pts blood pressure. prop already pulled and spiked, wasted with KIRSTIN Kaplan.
--- NOTE | 2024-08-31 14:53 | PC.NURSE ---
pharmacy note- Dr. Yarbrough ordered 1mg of ativan to be administered to pt. after this RN pulled ativan provider ordered another 1mg of Ativan immediately after the first was given. this RN gave medication from the same vial instead of going to the pyxis to pull another. attempted to call pharmacy to see how to straighten the issue out in the pyxis. pharmacy advised this rn to pull another vial and waste to have accurate count in the pyxis. unable to pull vial now that pt is not on this floor. wasted in pyxis with Rosaura FULTON. 2mg of ativan given from the same vial to patient.
[2024-08-31] MEDS: sodium chloride 0.9% 500 ML 999 ML IV (15:04)
[2024-08-31] MEDS: ipratropium-albuterol 3 mL Neb INHALATION ×2 (15:06→20:43)
[2024-08-31] MEDS: lactobacillus 1 Tablet 1 TAB PO (17:34)
[2024-08-31] MEDS: budesonide 0.5 mg/2 mL Neb INHALATION (20:43)
[2024-08-31] MEDS: levETIRAcetam 500 MG/100 ML PREMIX 400 MG IV (21:18)
[2024-08-31] MEDS: apixaban 5 mg Tablet PO (21:18)
[2024-08-31] MEDS: atorvastatin 40 mg Tablet PO (21:18)
[2024-08-31] MEDS: nitrofurantoin SR (BID) 100 mg Capsule PO (21:42)
[2024-08-31] MEDS: fentaNYL 1,000 MCG/100 ML BAG 5 MCG IV (22:51)
[2024-09-01] VITALS (104 sets, daily range): BP systolic 89–148; BP diastolic 53–86; PULSE 71–135; RESP 12–22; TEMP 38–38.2; O2SAT 90–100
[2024-09-01] MEDS: D5-NS 0.45% + KCL 20 mEq 20 MEQ/1,000 ML BAG 75 MEQ IV (01:03)
[2024-09-01] MEDS: levETIRAcetam 500 MG/100 ML PREMIX 400 MG IV ×4 (02:32→21:46)
[2024-09-01 04:10] LABS: Basophils % 0.3 %; Eosinophils % 0.2 %; Hematocrit 33.9 % (37-53); Lymphocytes # 0.8 10^3/uL (0.8-4.8); Lymphocytes % 13.7 %; Mean Corpuscular HGB Conc 32.2 g/dL (30-55); Mean Corpuscular Hemoglobin 29.3 pg (27-33); Mean Corpuscular Volume 91.1 fl (82-101); Mean Platelet Volume 8.3 fL (7.4-10.4); Monocytes # 0.7 10^3/uL (0.2-0.9); Monocytes % 10.9 %; Neutrophils # 4.53 10^3/uL (1.8-7.7); Neutrophils % 74.4 %; Nucleated Red Blood Cells % 0 %; Platelet Count 137 10^3/cmm (157-399); Red Blood Count 3.72 10^6/uL (3.85-5.65); Red Cell Distribution Width 14.1 % (12.1-15.1); White Blood Count 6.08 10^3/uL (3.29-11.43)
[2024-09-01 04:15] LABS: ABG PCO2 43.7 mmHg (35-45); ABG PH Result 7.38 (7.35-7.45); Arterial Blood Gas Hematocrit 32.6 % (42-52); Base Excess ABG 0.8 mmol/L (-2.0-2.0); Blood Gas Operator Identificat SAM; Blood Gas Sample Site Brachial, right; Blood Gas Sample Type Arterial; Blood Gas Tidal Volume 0.48; HCO3 ABG 26.1 mmol/L (22-26); Oxygen Device VENT; PO2 ABG 78.1 mmHg (80.0-100.0); PO2 FiO2 Ratio Arterial Blood 223
[2024-09-01 04:32] LABS: Alanine Aminotransferase 10 U/L (0-41); Albumin Level 2.9 g/dL (3.5-5.2); Alkaline Phosphatase 120 U/L (40-130); Anion Gap 12.5 (5-19); Aspartate Amino Transferase 16 U/L (0-40); Blood Urea Nitrogen 12 mg/dL (8-23); Calcium 7.7 mg/dL (8.5-10.5); Carbon Dioxide 24 mmol/L (22-29); Chloride 108 mmol/L (98-107); Globulin 1.9 g/dL (1.3-4.6); Glucose 106 mg/dL (65-115); Magnesium 1.5 mg/dL (1.7-2.3); Osmolality Calculated 292 mOsm/kg (285-295); Potassium 3.5 mmol/L (3.5-5.1); Sodium 141 mmol/L (136-145); Total Bilirubin 0.3 mg/dL (0.15-1.2); Total Protein 4.8 g/dL (6.6-8.7)
[2024-09-01 04:33] LABS: Chol HDL Ratio 4.67 mg/dL (1.0-5.00); Cholesterol 168 mg/dL (0-200); HDL Cholesterol 36 mg/dL (60-100); LDL Cholesterol Calculated 103 mg/dL (50-129); LDL HDL Ratio 2.86 RATIO (0.00-3.22); Triglycerides 147 mg/dL (0-150)
[2024-09-01 04:47] LABS: Estmated Average Glucose 91; Hemoglobin A1C 4.8 % (4.0-6.0)
[2024-09-01] MEDS: pantoprazole DR 40 mg Tablet PO (08:03)
[2024-09-01] MEDS: sertraline 100 mg Tablet PO (08:03)
[2024-09-01] MEDS: tamsulosin 0.4 mg Capsule PO (08:03)
[2024-09-01] MEDS: lactobacillus 1 Tablet 1 TAB PO ×2 (08:03→17:00)
[2024-09-01] MEDS: aspirin 81 mg Chew Tablet PO (08:03)
[2024-09-01] MEDS: apixaban 5 mg Tablet PO ×2 (08:05→21:46)
[2024-09-01] MEDS: budesonide 0.5 mg/2 mL Neb INHALATION ×2 (08:12→20:41)
[2024-09-01] MEDS: dexmedeTOMIDine 0.9 % NaCL 400 MCG/100 ML PREMIX IV (08:46)
--- NOTE | 2024-09-01 08:48 | PM.PN ---
Subjective Subjective: History of Present Illness Alessandro Duran is a 88 [facility] old male [facility] resident who was reported to be in his usual state of health with last known well observed on 08/31/2024 at 8:45 AM. The patient was reported to be rolling in his wheelchair and suddenly began rolling around in circles to the right and was observed to be slumped over on the left with left-sided paralysis. EMS was contacted. Code stroke was initiated at 9:17 AM on 08/31/2024 reporting that the ETA was 7 minutes to to [facility] emergency department. The patient was taken to the CT scanner techs stat. While still in the CT scanner Dr. Lind and I evaluate the patient. The patient was displaying focal motor seizures involving the left side of his body involving his left face and a V1 through V3 distribution, deviation of his eyes to the left and clonic activity involving the left upper extremity with paralysis of the left lower extremity patient was able to follow commands with the right arm and right leg and was attempting to speak when asked questions. Clinically patient was displaying focal motor status epilepticus involving the right hemisphere. Stat noncontrast head CT revealed: Advanced small vessel changes with moderate parenchymal volume loss. Chronic infarct in the RIGHT temporal lobe with encephalomalacia. Tiny chronic lacunar infarct RIGHT thalamus. Chronic lacunar infarcts in the LEFT greater than RIGHT cerebellum. Vascular calcifications. Some images are degraded due to beam hardening artifact. In view of the patient's clinical condition with continued focal status epilepticus the patient was transported back to the emergency department room #10 and was given IV Ativan 1 mg x 1 dose which was repeated x 1 followed by 1 g load of IV Keppra. Patient's focal motor seizures involving the left side of his body continued as well as signs of similar activity occurring in the right upper extremity with patient responding less suggesting of right hemisphere focal motor status epilepticus with progression to involvement of the left hemisphere. As a result, I recommended the patient be intubated and started on IV propofol. Patient was given bolus of IV propofol following intubation and patient was observed to have transient decreased blood pressure and therefore he was placed in Trendelenburg and started on IV fluids. Propofol was discontinued and the patient's blood pressure normalized. The patient was started on IV fentanyl and IV midazolam. Since the patient's blood pressure was stable he was transported back to the CT scanner to obtain CT angiogram of the head and neck to assess for large vessel occlusion. I was informed that there are no ICU beds and therefore the patient will remain in emergency department room #[address] angiogram of the head and neck does not reveal large vessel occlusion. I spoke with my process maintenance technician who will plan to do bedside portable EEG to assess for any subclinical status epilepticus and to assist in determining if additional or alternative anticonvulsant medications are required. Will plan to continue IV Keppra 500 mg IV every 8 hours. NIH stroke score =13 (secondary to left gaze deviation with eye fluttering consistent with focal motor seizures involving the right frontal lobe = 1, mild left facial droop = 1, inability to move the left upper extremity = 3, no movement left lower extremity =4, speech dysarthric =2, speech reveal incomplete sentences =1, neglect left side =1) Point of contact glucose Accu-Chek [address] revealed remote strokes but no acute stroke Note: Since the patient was experiencing status epilepticus and is on Eliquis, the patient was not a candidate for intravenous thrombolytics and no intravenous thrombolytics were administered. Labs for CBC and comprehensive metabolic panel performed on 08/31/2024 revealed potassium of 3.2 (normal equals 3.5-5.0). The other labs were unrevealing. Magnesium was within normal limits. On 09/01/2024 the patient is awake he is still intubated but there is plans to wean the patient off of the ventilator on 09/01/2024. No reported seizures during the night. Patient follows commands. Patient appears to have some weakness in the left arm but according to the nurse the patient was able to use the left arm and squeeze the intensive care nurses hand and a respiratory therapist hand. Patient moves both lower extremities to command and squeezes with his right hand. He has an intermittent tremor in the right upper extremity which improved with having the patient relax his hand. According to the intensive care nurse caring for the patient on 09/01/2024 the family stated the patient has a history of tremors which is chronic. The intensive care nurse caring for the patient on 09/01/2024 stated patient has been weaned off of IV midazolam and is only on IV fentanyl taper with plans for extubation today. Patient is still on IV Keppra and will resume oral Trileptal once the patient is no longer intubated. Portable surface EEG recording performed while the patient was still in the emergency department room #10 on 08/31/2024 revealed no subclinical status epilepticus on IV fentanyl, IV midazolam and IV Keppra. Metabolic lab obtained on 09/01/2024 revealed CBC revealing decrease hematocrit 32.6 (normal equals 42-52). Decreased platelet count of 137,000 (normal equals 157-399K). Comprehensive metabolic panel revealed normal potassium at 3.5 (normal equals 3.5-5.1). Serum calcium was reported to be decreased at 7.7 (normal equals 8.5-10.5). But patient's total protein was decreased at 4.8 (normal equals 6.6-8.7). Albumin was decreased at 2.9 (normal 3.5-5.2). Drug allergies: Amoxicillin and penicillins type reactions unknown IV propofol which resulted in transient hypotension (08/31/2024) Current medications: IV Keppra 500 mg every 12 hours IV fentanyl taper Trileptal (Oxcarbazepine) 300 mg p.o. twice daily (to resume once patient is able to take oral medications) Eliquis 5 mg p.o. twice daily for atrial fibrillation and history of pulmonary embolus Aspirin 81 mg p.o. daily Oxycodone/acetaminophen 1 p.o. every 6 hours as needed for pain Protonix 40 mg p.o. daily Zoloft 100 mg p.o. daily Flomax 0.4 mg p.o. daily Potassium chloride 10 meq p.o. daily Tylenol 500 mg p.o. every 6 hours as needed for pain Albuterol sulfate 2 puffs 4 times a day as needed for shortness of breath Menthol (Biofreeze) to be applied topically 3 times a day as needed Dulcolax 10 mg as needed constipation Symbicort 2 puffs inhaled twice daily Fleets enema 118 mL as needed constipation Flonase nasal spray Ipratropium/albuterol 3 mL inhale 3 times daily Latanoprost 1 drop at bedtime Ativan 0.5 mg p.o. daily Losartan 25 mg p.o. daily Magnesium hydroxide 30 mL p.o. as needed constipation Metoprolol 50 mg p.o. twice daily Nitrofurantoin 100 mg p.o. daily Zofran 4 mg p.o. every 4 hours as needed for nausea vomiting Past medical history: Atrial fibrillation treated with Eliquis Pulmonary embolus Chronic obstructive pulmonary disease Hypertension Hyperlipidemia Bacteremia due to Staphylococcus Peripheral vascular disease Cystitis Strokes History of chronic tremors Past medications: IV propofol for status epilepticus (started and discontinued on 08/31/2024 secondary to transient hypotension) IV midazolam for status epilepticus 08/31/2024 IV Ativan for status epilepticus 08/31/2024 Habits: Unable to obtain secondary to medical condition Family history: Unable to obtain secondary to medical condition Social history: The patient resides in a nursing care facility Review of Systems General: Reports: ROS unobt ainable due to end otracheal tube and ROS unobtainable due to medical con dition Vitals/I&O/Wt Last Vital Signs Temp 99.5 F 08/31/24 14:00 Pulse 110 H 09/01/24 08:29 Resp 13 09/01/24 08:15 BP 110/68 09/01/24 06:00 Pulse Ox 97 09/01/24 08:15 O2 Del Method Mechanical Ventilation 09/01/24 08:13 O2 Flow Rate 40 08/31/24 14:00 FiO2 35 09/01/24 08:15 08/31/24 09/01/24 09/01/24 22:59 06:59 14:59 Intake Total 227.208 / 857.246 9638.742 / 3020.126 Output Total 700 / 700 450 / 1150 Balance -472.792 / -398.284 9930.742 / 1870.126 Weight last 48 hrs Weight 123 lb 8 oz Weight 121 lb 4.068 oz Weight 130 lb Physical Exam Narrative: The patient is intubated. He is alert and on IV fentanyl taper. Plans for extubation off of the ventilator 09/01/2024. Pupils 3 to 4 mm round reactive to light and accommodation. Extraocular movements intact. Motor exam: Patient moves all extremities but appears to have some weakness in the left upper extremity. There was no obvious facial weakness. Patient follows commands. Throat has intubation to. Lungs clear heart regular rhythm and rate. Extremities were negative for cyanosis. There was a intermittent tremor in the right upper extremity which was relieved with positioning of the patient's hand and having the patient relax. Urinary Catheter Management: Grewal: Cath Placed During This Visit: yes Reason for Continuing Indwelling Catheter: Accurate Measurement of Urinary Output in Critically Ill Patients Urinary Catheter Date of Insertion: 08/31/24 Urinary Catheter Time of Insertion: 09:45 Data 09/01/24 03:48 09/01/24 03:48 A&P Assessment and plan (1) Status epilepticus: Impression: 1. Right hemisphere status epilepticus with later involvement of the left upper extremity requiring intubation and IV sedation for status epilepticus with IV propofol which was discontinued secondary to transient hypotension followed by IV fentanyl and IV Versed, stable without reports of any recurrent seizures even after discontinuing IV midazolam and IV fentanyl taper 2. 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 Note: Stat CT angiogram 09/01/2023 revealed no acute strokes only remote strokes. CT angiogram of the head and neck ordered to assess for large vessel occlusion to determine if patient is candidate for thrombectomy if CT angiogram of the head and neck reveals large vessel occlusion. Note: Since the patient is on Eliquis for atrial fibrillation and history of pulmonary embolus and clinical status epilepticus, the patient was not a candidate for intravenous thrombolytics and no intravenous thrombolytics were administered. Left upper extremity and left lower extremity weakness appears to be improved 3. History of remote strokes 4. History of atrial fibrillation treated with Eliquis 5. Chronic obstructive pulmonary disease 6. Thrombocytopenia platelet count 137K on 09/01/2024 7. Decreased hematocrit 32.6 (normal equals 42-52) on 09/01/2024 8. Decrease magnesium 1.5 (normal equals 1.7-2.3) 9. Serum calcium 7.7 (normal equals 8.5-10.5) but albumin decreased at 2.9 (normal to 3.5-5.2) and total protein decreased at 4.8 (normal equals 6.6-8.7) Plan: 1. Agree with weaning the patient off of the ventilator and extubation as tolerated 2. Okay to resume Trileptal (Oxcarbazepine) 300 mg p.o. twice daily (to resume once patient is able to take oral medications) 3. Change IV Keppra to Keppra 500 mg p.o. twice daily once patient able to take oral medications 4. Follow-up trough Keppra level ordered on 09/01/2024 5. Agree with addressing decreased serum magnesium and possible hypocalcemia. Hospitalist recommendations/decision as to whether or not ionized calcium should be performed 6. Continue seizure precautions per state law 7. Continue fall precautions 8. Agree with discharge planning if patient's condition remains stable 9. 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
--- NOTE | 2024-09-01 09:03 | PC.NURSE ---
bariatric coordinator rounds at 0815- pt intubated, doing a sedation vacation for possible extubation today. Patient is moving all extremities, weaker on the left. Movements are purposeful. Followed some commands such as squeezing my hand. No noticeable seizure-like activity.
[2024-09-01] MEDS: magnesium sulfate premix 2 GM/50 ML PIGGYBACK IV (09:49)
--- NOTE | 2024-09-01 10:28 | P.PN_ITS ---
Subjective 2 Subjective: Patient is intubated and sedated which limits history. Sedation has been backed off this morning and he does follow basic commands. Left-sided extremities remarkably weaker than right. Was then we will meet with son and granddaughter bedside later in the morning. Is undergoing breathing trial with plans for extubation if he does well. We discussed that he is very high reintubation risk given presentation and underlying concern for protecting airway. Medications: Reviewed: Yes Vitals/I&O/Wt Last Vital Signs Temp 100.8 F H 09/01/24 09:00 Pulse 127 H 09/01/24 09:00 Resp 13 09/01/24 09:43 BP 119/71 09/01/24 09:00 Pulse Ox 94 09/01/24 09:43 O2 Del Method Mechanical Ventilation 09/01/24 09:00 O2 Flow Rate 40 08/31/24 14:00 FiO2 35 09/01/24 09:43 08/31/24 09/01/24 09/01/24 22:59 06:59 14:59 Intake Total 227.208 / 932.347 3848.742 / 3020.126 13.395 / 13.395 Output Total 700 / 700 450 / 1150 75 / 75 Balance -472.792 / -458.819 6715.742 / 1870.126 -61.605 / -61.605 Weight last 48 hrs Weight 56.019 kg Weight 55 kg Weight 58.967 kg Physical Exam 2 Narrative: General: Patient is intubated. Head: Normocephalic. Atraumatic. Neck: No JVD. Cardiovascular: Tachycardic. No gallops. No murmurs. No peripheral edema. Lungs: Breath sounds are diminished, no use of accessory muscles, no crackles or wheezes. Intubated on mechanical ventilator. Skin: No jaundice. No rashes. Abdomen: Normal bowel sounds, abdomen soft and nontender. Genito Urinary: Catheter. Rectal: Rectal exam not performed since no symptoms indicated blood loss. Extremities: No cyanosis or clubbing. Musculoskeletal: no swollen or erythematous joints. Neurological: No myoclonus. Full neurological exam could not be conducted due to intubation and sedation status. Follows basic commands. Left upper and lower extremities are markedly weak with strength about 2-3 out of 5. Right sided extremities appear to be intact. Urinary Catheter Management: Grewal: Cath Placed During This Visit: yes Reason for Continuing Indwelling Catheter: Accurate Measurement of Urinary Output in Critically Ill Patients Urinary Catheter Date of Insertion: 08/31/24 Urinary Catheter Time of Insertion: 09:45 Data 09/01/24 03:48 09/01/24 03:48 A&P Assessment and plan (1) Acute CVA (cerebrovascular accident): Patient presented with left-sided weakness concerning for acute stroke Continue apixaban and aspirin Neurology is following, appreciate recommendations Will plan for MRI when medically able Will need therapy evaluation (2) Status epilepticus: Neurology following Seizure precautions Will restart home oxcarbazepine after extubation EEG reviewed Patient is being loaded with Keppra Son reports that patient had adverse reaction with altered mentation with previous AED about 20 years ago, he thinks it could have been Keppra; we discussed would monitor progression closely while on this medication and adjust treatment if needed (3) Endotracheally intubated: Continue breathing trial this morning, if he does well we will plan for extubation He is high risk extubation given unable to assess his swallow function in the setting of concern for acute stroke Family is aware he is a high risk for reintubation if he fails Weaning sedation Start Precedex (4) COPD (chronic obstructive pulmonary disease): Recent influenza noted Continue breathing treatments Qualifiers: COPD type: emphysema Emphysema type: panlobular Qualified Code(s): 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 (5) Hypertension: Holding losartan Metoprolol held this morning, may give later today pending heart rate and blood pressure Qualifiers: Hypertension type: primary hypertension Qualified Code(s): I10 - Essential (primary) hypertension (6) Atrial fibrillation: Continue apixaban Qualifiers: Atrial fibrillation type: paroxysmal Qualified Code(s): I48.0 - Paroxysmal atrial fibrillation (7) Benign prostatic hyperplasia with lower urinary tract symptoms: Continue Flomax (8) Anxiety: Continue sertraline He will need Ativan restarted as to prevent withdrawal after extubation (9) Recurrent UTI: Continue nitrofurantoin (10) Hard of hearing: Hard of hearing at baseline (11) Cognitive decline: Plan DVT prophylaxis: Apixaban Limited code PDMP PDMP Reviewed: Not Reviewed Attestations 2 Medical Necessity Statement*: Patient requires ongoing hospitalization for vent weaning, IV AEDs, MRI, and supportive care. Critical Care Time: The high probability of a clinically significant, sudden or life threatening deterioration of the patient's neurologic, pulmonary, circulatory system(s) required my full and direct attention, intervention and personal management. The critical care time is as shown. This time is in addition to time spent performing any reported procedures but includes the following: [x] Data and vital sign review and interpretation [x] Patient assessment, examination and intervention [x] Documentation [x] Medication orders and management Critical Care Time (min): 35 Coding Level of Care Code Acute Code for Chg Fwd Diagnoses Acute CVA (cerebrovascular accident) I63.9 Status epilepticus G40.901 Endotracheally intubated Z97.8 Panlobular emphysema J43.1 COPD type: emphysema Emphysema type: panlobular Primary hypertension I10 Hypertension type: primary hypertension Paroxysmal atrial fibrillation I48.0 Atrial fibrillation type: paroxysmal Benign prostatic hyperplasia with lower urinary tract symptoms N40.1 Anxiety F41.9 Recurrent UTI N39.0 Hard of hearing H91.90 Cognitive decline R41.89
--- NOTE | 2024-09-01 10:32 | PC.NURSE ---
Patient was successfully extubated by RT at 1030.
[2024-09-01] MEDS: metoprolol tartrate 50 mg Tablet PO ×2 (13:37→22:01)
[2024-09-01] MEDS: ipratropium-albuterol 3 mL Neb INHALATION ×2 (13:49→20:41)
[2024-09-01] MEDS: OXcarbazepine 300 mg Tablet PO (17:00)
[2024-09-01] MEDS: atorvastatin 40 mg Tablet PO (21:46)
[2024-09-01] MEDS: nitrofurantoin SR (BID) 100 mg Capsule PO (21:59)
[2024-09-01] MEDS: acetaminophen 500 mg Tablet PO (21:59)
[2024-09-02] VITALS (47 sets, daily range): BP systolic 124–180; BP diastolic 74–109; PULSE 65–95; RESP 15–29; TEMP 36.6–37.1; O2SAT 89–98
[2024-09-02] MEDS: levETIRAcetam 500 MG/100 ML PREMIX 400 MG IV (04:18)
[2024-09-02 04:22] LABS: Basophils % 0.8 %; Eosinophils # 0.1 10^3/uL (0.0-0.8); Eosinophils % 2.7 %; Hematocrit 34.5 % (37-53); Lymphocytes # 0.7 10^3/uL (0.8-4.8); Mean Corpuscular HGB Conc 31.3 g/dL (30-55); Mean Corpuscular Hemoglobin 28.6 pg (27-33); Mean Corpuscular Volume 91.5 fl (82-101); Mean Platelet Volume 8.4 fL (7.4-10.4); Monocytes # 0.5 10^3/uL (0.2-0.9); Monocytes % 10.5 %; Neutrophils % 71.6 %; Nucleated Red Blood Cells % 0 %; Platelet Count 122 10^3/cmm (157-399); Red Blood Count 3.77 10^6/uL (3.85-5.65); Red Cell Distribution Width 13.7 % (12.1-15.1); White Blood Count 5.16 10^3/uL (3.29-11.43)
[2024-09-02 04:47] LABS: Albumin Level 2.9 g/dL (3.5-5.2); Blood Urea Nitrogen 13 mg/dL (8-23); Calcium 8.6 mg/dL (8.5-10.5); Carbon Dioxide 26 mmol/L (22-29); Chloride 106 mmol/L (98-107); Glucose 90 mg/dL (65-115); Phosphorus 2.6 mg/dL (2.5-4.5); Sodium 139 mmol/L (136-145)
[2024-09-02 04:57] LABS: Anion Gap 10.7 (5-19); Potassium 3.7 mmol/L (3.5-5.1)
--- NOTE | 2024-09-02 06:56 | XRR_ITS ---
PROCEDURE INFORMATION: Exam: XR Chest Exam date and time: 09/02/2024 6:11 AM Age: 88 years old Clinical indication: Cough; Additional info: Cough, hypoxia TECHNIQUE: Imaging protocol: Radiologic exam of the chest. Views: 1 view. COMPARISON: CR XR chest 1V portable [id number] 08/31/2024 10:05 AM FINDINGS: Lungs: Emphysematous lung changes. No focal consolidation is identified. Diffuse interstitial prominence. No focal mass. Pleural spaces: Unremarkable. No pleural effusion. No pneumothorax. Heart/Mediastinum: Unremarkable. No cardiomegaly. Bones/joints: Unremarkable. XR/XR chest 1V portable [id number] IMPRESSION: Interstitial lung markings are increased relative to comparison. Consider edema or atypical pneumonia.
[2024-09-02] MEDS: budesonide 0.5 mg/2 mL Neb INHALATION ×2 (08:10→20:21)
[2024-09-02] MEDS: ipratropium-albuterol 3 mL Neb INHALATION ×3 (08:10→20:21)
--- NOTE | 2024-09-02 09:13 | PC.NURSE ---
promotions coordinator rounds at 0855- patient extubated, mostly oriented x3- though he thought it was jul 2024, residential director more equal today, better facial symmetry, following all commands, moving all extremities, carrying on a conversation appropriately with me and primary RN.
--- NOTE | 2024-09-02 09:16 | MR_ITS ---
WS: [id number] MRI HEAD WITH CONTRAST TECHNIQUE: Sagittal T1, T2 axial, T2 axial FLAIR, axial susceptibility weighted imaging, axial diffusion weighted images, and coronal T2 images were obtained. Pre and post-T1 axial and post T1 coronal images. ADC and FSPGR images. CLINICAL INFORMATION: seizures COMPARISON: CT 08/31/2024 Findings: Fast imaging performed due to motion. Some images are of limited quality Tiny focus of faint restricted diffusion in the RIGHT malik may present a tiny acute to subacute infarct but equivocal. Chronic infarcts as previously described. Tiny chronic focus of hemosiderin LEFT frontoparietal junction. Advanced small vessel changes with advanced parenchymal volume loss. Small ves randolph changes in the malik. No abnormal gadolinium enhancement. Advanced symmetric atrophy temporal lobes hippocampal formations Chronic infarct with encephalomalacia right temporal lobe and RIGHT frontal lobe. Ex vacuo dilatation RIGHT temporal horn. Chronic lacunar infarcts in the cerebellum. Fluid in the mastoid air cells. MR/MR head wo/w con [id number] IMPRESSION: 1. Tiny focus of faint restricted diffusion in the RIGHT malik may present a ti ny acute to subacute infarct but equivocal. 2. Otherwise no evidence of restricted diffusion 3. Chronic lacunar infarcts in the malik 4. Advanced small vessel changes with advanced parenchymal volume loss. Small vessel changes in the malik. 5. Chronic infarcts as previously described. 6. Advanced symmetric atrophy temporal lobes and hippocampal formations. 7. No abnormal gadolinium enhancement.
--- NOTE | 2024-09-02 09:17 | PC.NURSE ---
rounded with neurology, Verbal instructions to obtain MRI head with and without contrast received and placed
--- NOTE | 2024-09-02 09:22 | P.PN_ITS ---
Subjective 2 Subjective: History of Present Illness Alessandro Duran is a 88 year old male intermediate resident who was reported to be in his usual state of health with last known well observed on 08/31/2024 at 8:45 AM. The patient was reported to be rolling in his wheelchair and suddenly began rolling around in circles to the right and was observed to be slumped over on the left with left-sided paralysis. EMS was contacted. Code stroke was initiated at 9:17 AM on 08/31/2024 reporting that the ETA was 7 minutes to to [facility] emergency department. The patient was taken to the CT scanner techs stat. While still in the CT scanner Dr. Lind and I evaluate the patient. The patient was displaying focal motor seizures involving the left side of his body involving his left face and a V1 through V3 distribution, deviation of his eyes to the left and clonic activity involving the left upper extremity with paralysis of the left lower extremity patient was able to follow commands with the right arm and right leg and was attempting to speak when asked questions. Clinically patient was displaying focal motor status epilepticus involving the right hemisphere. Stat noncontrast head CT revealed: Advanced small vessel changes with moderate parenchymal volume loss. Chronic infarct in the RIGHT temporal lobe with encephalomalacia. Tiny chronic lacunar infarct RIGHT thalamus. Chronic lacunar infarcts in the LEFT greater than RIGHT cerebellum. Vascular calcifications. Some images are degraded due to beam hardening artifact. In view of the patient's clinical condition with continued focal status epilepticus the patient was transported back to the emergency department room #10 and was given IV Ativan 1 mg x 1 dose which was repeated x 1 followed by 1 g load of IV Keppra. Patient's focal motor seizures involving the left side of his body continued as well as signs of similar activity occurring in the right upper extremity with patient responding less suggesting of right hemisphere focal motor status epilepticus with progression to involvement of the left hemisphere. As a result, I recommended the patient be intubated and started on IV propofol. Patient was given bolus of IV propofol following intubation and patient was observed to have transient decreased blood pressure and therefore he was placed in Trendelenburg and started on IV fluids. Propofol was discontinued and the patient's blood pressure normalized. The patient was started on IV fentanyl and IV midazolam. Since the patient's blood pressure was stable he was transported back to the CT scanner to obtain CT angiogram of the head and neck to assess for large vessel occlusion. I was informed that there are no ICU beds and therefore the patient will remain in emergency department room #[address] angiogram of the head and neck does not reveal large vessel occlusion. I spoke with my line maintenance technician who will plan to do bedside portable EEG to assess for any subclinical status epilepticus and to assist in determining if additional or alternative anticonvulsant medications are required. Will plan to continue IV Keppra 500 mg IV every 8 hours. NIH stroke score =13 (secondary to left gaze deviation with eye fluttering consistent with focal motor seizures involving the right frontal lobe = 1, mild left facial droop = 1, inability to move the left upper extremity = 3, no movement left lower extremity =4, speech dysarthric =2, speech reveal incomplete sentences =1, neglect left side =1) Point of contact glucose Accu-Chek [address] revealed remote strokes but no acute stroke Note: Since the patient was experiencing status epilepticus and is on Eliquis, the patient was not a candidate for intravenous thrombolytics and no intravenous thrombolytics were administered. Labs for CBC and comprehensive metabolic panel performed on 08/31/2024 revealed potassium of 3.2 (normal equals 3.5-5.0). The other labs were unrevealing. Magnesium was within normal limits. On 09/01/2024 the patient is awake he is still intubated but there is plans to wean the patient off of the ventilator on 09/01/2024. No reported seizures during the night. Patient follows commands. Patient appears to have some weakness in the left arm but according to the nurse the patient was able to use the left arm and squeeze the intensive care nurses hand and a respiratory therapist hand. Patient moves both lower extremities to command and squeezes with his right hand. He has an intermittent tremor in the right upper extremity which improved with having the patient relax his hand. According to the intensive care nurse caring for the patient on 09/01/2024 the family stated the patient has a history of tremors which is chronic. The intensive care nurse caring for the patient on 09/01/2024 stated patient has been weaned off of IV midazolam and is only on IV fentanyl taper with plans for extubation today. Patient is still on IV Keppra and will resume oral Trileptal once the patient is no longer intubated. Portable surface EEG recording performed while the patient was still in the emergency department room #10 on 08/31/2024 revealed no subclinical status epilepticus on IV fentanyl, IV midazolam and IV Keppra. Metabolic lab obtained on 09/01/2024 revealed CBC revealing decrease hematocrit 32.6 (normal equals 42-52). Decreased platelet count of 137,000 (normal equals 157-399K). Comprehensive metabolic panel revealed normal potassium at 3.5 (normal equals 3.5-5.1). Serum calcium was reported to be decreased at 7.7 (normal equals 8.5-10.5). But patient's total protein was decreased at 4.8 (normal equals 6.6-8.7). Albumin was decreased at 2.9 (normal 3.5-5.2). On 09/02/2024 patient is alert and cooperative with no obvious focal weakness. Patient was extubated on 09/01/2024 without issues. The patient stated that he is still experiencing some shortness of breath which is being evaluated. The patient reported that years ago he experienced a seizure. But, he has not had seizures for some time until he was admitted on 08/31/2024 experiencing status epilepticus. The patient is tolerating the Keppra. Patient will be scheduled for head MRI with and without contrast to assess for right frontal lobe lesion to further assess why patient experienced status epilepticus. Trough Keppra level performed on 09/01/2024 pending at the time of this dictation. Drug allergies: Amoxicillin and penicillins type reactions unknown IV propofol which resulted in transient hypotension (08/31/2024) Current medications: IV Keppra 500 mg every 12 hours IV fentanyl taper Trileptal (Oxcarbazepine) 300 mg p.o. twice daily (to resume once patient is able to take oral medications) Eliquis 5 mg p.o. twice daily for atrial fibrillation and history of pulmonary embolus Aspirin 81 mg p.o. daily Oxycodone/acetaminophen 1 p.o. every 6 hours as needed for pain Protonix 40 mg p.o. daily Zoloft 100 mg p.o. daily Flomax 0.4 mg p.o. daily Potassium chloride 10 meq p.o. daily Tylenol 500 mg p.o. every 6 hours as needed for pain Albuterol sulfate 2 puffs 4 times a day as needed for shortness of breath Menthol (Biofreeze) to be applied topically 3 times a day as needed Dulcolax 10 mg as needed constipation Symbicort 2 puffs inhaled twice daily Fleets enema 118 mL as needed constipation Flonase nasal spray Ipratropium/albuterol 3 mL inhale 3 times daily Latanoprost 1 drop at bedtime Ativan 0.5 mg p.o. daily Losartan 25 mg p.o. daily Magnesium hydroxide 30 mL p.o. as needed constipation Metoprolol 50 mg p.o. twice daily Nitrofurantoin 100 mg p.o. daily Zofran 4 mg p.o. every 4 hours as needed for nausea vomiting Past medical history: Atrial fibrillation treated with Eliquis Pulmonary embolus Chronic obstructive pulmonary disease Hypertension Hyperlipidemia Bacteremia due to Staphylococcus Peripheral vascular disease Cystitis Strokes History of chronic tremors Past medications: IV propofol for status epilepticus (started and discontinued on 08/31/2024 secondary to transient hypotension) IV midazolam for status epilepticus 08/31/2024 IV Ativan for status epilepticus 08/31/2024 Habits: Unable to obtain secondary to medical condition Family history: Unable to obtain secondary to medical condition Social history: The patient resides in a nursing care facility Review of systems: The patient reported shortness of breath. He denied chest pain, headaches, visual difficulty, focal weakness or speech difficulty or swallowing difficulty. The patient also denied extremity pain. Vitals/I&O/Wt Last Vital Signs Temp 100.6 F H 09/01/24 14:00 Pulse 77 09/02/24 08:00 Resp 16 09/02/24 08:00 BP 156/82 09/02/24 06:00 Pulse Ox 98 09/02/24 08:00 O2 Del Method Nasal Cannula 09/02/24 08:00 O2 Flow Rate 2 09/02/24 08:00 FiO2 35 09/01/24 09:43 09/01/24 09/02/24 09/02/24 22:59 06:59 14:59 Intake Total 220 / 335.798 320 / 655.798 Output Total 175 / 250 450 / 700 Balance 45 / 85.798 -130 / -44.202 Weight last 48 hrs Weight 124 lb 12.8 oz Weight 123 lb 8 oz Weight 121 lb 4.068 oz Weight 130 lb Physical Exam 2 Narrative: The patient is alert and oriented to person. His speech is clear. Patient follows commands. Head atraumatic. Neck supple. Cranial nerves II through XII intact. I did not observe any obvious facial weakness. Pupils 3 to 4 mm round reactive to light and accommodation. Extraocular movements intact. Motor testing 5/5 bilaterally. Sensory examination intact to gross modalities. Throat clear. Lungs clear. Heart regular rhythm and rate. Extremities were negative for cyanosis. Urinary Catheter Management: Grewal: Cath Placed During This Visit: yes Reason for Continuing Indwelling Catheter: Accurate Measurement of Urinary Output in Critically Ill Patients Urinary Catheter Date of Insertion: 08/31/24 Urinary Catheter Time of Insertion: 09:45 Data 09/02/24 04:15 09/02/24 04:15 Micro: Microbiology 08/31/24 13:10 Gram Stain - Final Sputum - Endotracheal Tube Aspirate Sputum Culture - Preliminary A&P Assessment and plan (1) Status epilepticus: Impression: 1. Right hemisphere status epilepticus with later involvement of the left upper extremity requiring intubation and IV sedation for status epilepticus with IV propofol which was discontinued secondary to transient hypotension followed by IV fentanyl and IV Versed, stable without reports of any recurrent seizures even after discontinuing IV midazolam and IV fentanyl taper 2. 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 Note: Stat CT angiogram 09/01/2023 revealed no acute strokes only remote strokes. CT angiogram of the head and neck ordered to assess for large vessel occlusion to determine if patient is candidate for thrombectomy if CT angiogram of the head and neck reveals large vessel occlusion. Note: Since the patient is on Eliquis for atrial fibrillation and history of pulmonary embolus and clinical status epilepticus, the patient was not a candidate for intravenous thrombolytics and no intravenous thrombolytics were administered. Left upper extremity and left lower extremity weakness appears to be improved 3. History of remote strokes 4. History of atrial fibrillation treated with Eliquis 5. Chronic obstructive pulmonary disease 6. Thrombocytopenia platelet count 137K on 09/01/2024 7. Decreased hematocrit 32.6 (normal equals 42-52) on 09/01/2024 8. Decrease magnesium 1.5 (normal equals 1.7-2.3), now normal 9. Serum calcium 7.7 (normal equals 8.5-10.5) but albumin decreased at 2.9 (normal to 3.5-5.2) and total protein decreased at 4.8 (normal equals 6.6-8.7) Plan: 1. Will obtain head MRI with and without contrast to assess for right frontal space-occupying lesion and or acute stroke to further assess causes for status epilepticus 2. Okay to resume Trileptal (Oxcarbazepine) 300 mg p.o. twice daily (to resume once patient is able to take oral medications) 3. Okay to change IV Keppra to Keppra 500 mg p.o. twice daily 4. Follow-up trough Keppra level ordered on 09/01/2024 5. Agree with addressing decreased serum magnesium and possible hypocalcemia. Hospitalist recommendations/decision as to whether or not ionized calcium should be performed 6. Continue seizure precautions per state law 7. Continue fall precautions 8. Recommend starting patient on a lipid-lowering agent per NIH stroke protocol since the patient has history of remote strokes 9. Agree with discharge planning back to the nursing care facility once the patient's medical conditions are stable 10. 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
--- NOTE | 2024-09-02 09:25 | P.PN_ITS ---
Subjective 2 Subjective: Patient tolerated extubation well yesterday. Found to be febrile overnight. Noted to have copious respiratory secretions. This morning, he is awake and alert. Pleasant. Endorses cough. Denies other new complaints. Discussed plan of care. Medications: Reviewed: Yes Vitals/I&O/Wt Last Vital Signs Temp 100.6 F H 09/01/24 14:00 Pulse 77 09/02/24 08:00 Resp 16 09/02/24 08:00 BP 156/82 09/02/24 06:00 Pulse Ox 98 09/02/24 08:00 O2 Del Method Nasal Cannula 09/02/24 08:00 O2 Flow Rate 2 09/02/24 08:00 FiO2 35 09/01/24 09:43 09/01/24 09/02/24 09/02/24 22:59 06:59 14:59 Intake Total 220 / 335.798 320 / 655.798 Output Total 175 / 250 450 / 700 Balance 45 / 85.798 -130 / -44.202 Weight last 48 hrs Weight 56.608 kg Weight 56.019 kg Weight 55 kg Physical Exam 2 Narrative: General: Patient is awake. Head: Normocephalic. Atraumatic. Neck: No JVD. Cardiovascular: No gallops. No murmurs. No peripheral edema. Lungs: Breath sounds are diminished, no use of accessory muscles, no crackles or wheezes. Skin: No jaundice. No rashes. Abdomen: Normal bowel sounds, abdomen soft and nontender. Genito Urinary: Catheter. Rectal: Rectal exam not performed since no symptoms indicated blood loss. Extremities: No cyanosis or clubbing. Musculoskeletal: no swollen or erythematous joints. Neurological: No myoclonus. Follows basic commands. Weakness in left extremities persist. Urinary Catheter Management: Grewal: Cath Placed During This Visit: yes Reason for Continuing Indwelling Catheter: Accurate Measurement of Urinary Output in Critically Ill Patients Urinary Catheter Date of Insertion: 08/31/24 Urinary Catheter Time of Insertion: 09:45 Data 09/02/24 04:15 09/02/24 04:15 Micro: Microbiology 08/31/24 13:10 Gram Stain - Final Sputum - Endotracheal Tube Aspirate Sputum Culture - Preliminary A&P Assessment and plan (1) Acute CVA (cerebrovascular accident): Patient presented with left-sided weakness concerning for acute stroke Continue apixaban and aspirin Neurology is following, appreciate recommendations MRI ordered Therapy services following; remains NPO; working with speech PT and OT ordered (2) Status epilepticus: Neurology following Seizure precautions Continue home oxcarbazepine Rotate to PO josemanuelra Son reports that patient had adverse reaction with altered mentation with previous AED about 20 years ago, he thinks it could have been Keppra; we discussed would monitor progression closely while on this medication and adjust treatment if needed (3) Endotracheally intubated: Extubated / Febrile overnight, check CXR Start cefepime (4) COPD (chronic obstructive pulmonary disease): Continue breathing treatments Monitoring for wheezing, high risk for exacerbation Qualifiers: COPD type: emphysema Emphysema type: panlobular Qualified Code(s): 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 (5) Hypertension: Restart losartan Continue metoprolol Qualifiers: Hypertension type: primary hypertension Qualified Code(s): I10 - Essential (primary) hypertension (6) Atrial fibrillation: Continue apixaban Qualifiers: Atrial fibrillation type: paroxysmal Qualified Code(s): I48.0 - Paroxysmal atrial fibrillation (7) Benign prostatic hyperplasia with lower urinary tract symptoms: Continue Flomax (8) Anxiety: Continue sertraline Restart ativan (9) Recurrent UTI: Continue nitrofurantoin (10) Hard of hearing: Hard of hearing at baseline (11) Cognitive decline: Plan DVT prophylaxis: Apixaban Limited code PDMP PDMP Reviewed: Not Reviewed Attestations 2 Medical Necessity Statement*: Pt requires ongoing hospitalization for IV abx, MRI, neuro assessment, and therapy. Coding Level of Care Code [facility] Diagnoses Acute CVA (cerebrovascular accident) I63.9 Status epilepticus G40.901 Endotracheally intubated Z97.8 Panlobular emphysema J43.1 COPD type: emphysema Emphysema type: panlobular Primary hypertension I10 Hypertension type: primary hypertension Paroxysmal atrial fibrillation I48.0 Atrial fibrillation type: paroxysmal Benign prostatic hyperplasia with lower urinary tract symptoms N40.1 Anxiety F41.9 Recurrent UTI N39.0 Hard of hearing H91.90 Cognitive decline R41.89
[2024-09-02] MEDS: metoprolol tartrate 50 mg Tablet PO ×2 (09:30→21:20)
[2024-09-02] MEDS: cefepime 2,000 mg SDV 2000 MG IVP ×2 (09:30→18:18)
[2024-09-02] MEDS: aspirin 81 mg Chew Tablet PO (09:30)
[2024-09-02] MEDS: lactobacillus 1 Tablet 1 TAB PO ×2 (09:30→18:19)
[2024-09-02] MEDS: tamsulosin 0.4 mg Capsule PO (09:31)
[2024-09-02] MEDS: apixaban 5 mg Tablet PO ×2 (09:31→21:20)
[2024-09-02] MEDS: OXcarbazepine 300 mg Tablet PO ×2 (09:31→18:19)
[2024-09-02] MEDS: sertraline 100 mg Tablet PO (09:31)
[2024-09-02] MEDS: pantoprazole DR 40 mg Tablet PO (09:31)
--- NOTE | 2024-09-02 12:12 | FL_ITS ---
WS: [id number] Modified barium swallow, 09/02/2024 Clinical Data: Other dysphagia Comparison: None. Fluoroscopy time: 3min [id number] # of spot films: 1 Findings: The patient had normal swallowing but it took 2 swallows to clear the oral cavity. There was premature spillage to the vallecula. There was no aspiration or penetration. There is a suggestion of a small pharyngeal lateral diverticulum but could not be identified for certain. FL/FL barium swallow modifd [id number] Impression: 1. 2 swallows to clear oral cavity after normal initiation. 2. Premature spillage to the vallecula. 3. No aspiration or penetration. 4. Question of small pharyngeal lateral diverticulum.
--- NOTE | 2024-09-02 13:32 | PC.OT ---
OT services withheld, patient is going for barium swallow study. To attempt on a later time/date.
--- NOTE | 2024-09-02 17:24 | PC.NURSE ---
Late entry 09/02/24 0500: Wasted 50 ml Fentanyl and 70 ml versed, witnessed with Baldo Gupta RN
[2024-09-02] MEDS: levETIRAcetam 500 MG/5 ML UDC PO (18:19)
[2024-09-02] MEDS: LORazepam 2 mg/mL INJ 1 mL 0.5 MG IVP (19:39)
[2024-09-02] MEDS: atorvastatin 40 mg Tablet PO (21:20)
[2024-09-02] MEDS: nitrofurantoin SR (BID) 100 mg Capsule PO (21:22)
[2024-09-02] MEDS: latanoprost 0.005% Op Soln 2.5 mL Btl 1 DROP EYE-BOTH (21:36)
[2024-09-03] VITALS (38 sets, daily range): BP systolic 99–191; BP diastolic 64–160; PULSE 71–112; RESP 14–34; TEMP 36.4–37.2; O2SAT 83–99
--- NOTE | 2024-09-03 01:19 | PC.NURSE ---
BP Patient's blood pressure remaining elevated, currently 185/103. Dr. Perez contacted and order received to give first dose of 10 mg losartan now, then if blood pressure remaining >180/100 10 mg hydralazine IVP Q4H PRN.
[2024-09-03] MEDS: losartan 50 mg Tablet 25 MG PO (01:31)
[2024-09-03 05:15] LABS: Basophils % 0.5 %; Eosinophils # 0.1 10^3/uL (0.0-0.8); Eosinophils % 2.2 %; Hematocrit 31.2 % (37-53); Lymphocytes # 0.6 10^3/uL (0.8-4.8); Lymphocytes % 10.6 %; Mean Corpuscular HGB Conc 34.3 g/dL (30-55); Mean Corpuscular Hemoglobin 30.5 pg (27-33); Mean Corpuscular Volume 88.9 fl (82-101); Mean Platelet Volume 8.9 fL (7.4-10.4); Monocytes # 0.5 10^3/uL (0.2-0.9); Monocytes % 8.1 %; Neutrophils # 4.73 10^3/uL (1.8-7.7); Neutrophils % 78.3 %; Nucleated Red Blood Cells % 0 %; Platelet Count 148 10^3/cmm (157-399); Red Blood Count 3.51 10^6/uL (3.85-5.65); Red Cell Distribution Width 13.3 % (12.1-15.1); White Blood Count 6.04 10^3/uL (3.29-11.43)
[2024-09-03 05:34] LABS: Albumin Level 2.9 g/dL (3.5-5.2); Blood Urea Nitrogen 9 mg/dL (8-23); Calcium 8.2 mg/dL (8.5-10.5); Carbon Dioxide 25 mmol/L (22-29); Chloride 103 mmol/L (98-107); Creatinine Clr Calc Pharmacy 48.8369; Glucose 96 mg/dL (65-115); Magnesium 1.6 mg/dL (1.7-2.3); Phosphorus 2.2 mg/dL (2.5-4.5); Sodium 140 mmol/L (136-145)
[2024-09-03] MEDS: aspirin 81 mg Chew Tablet PO (05:56)
[2024-09-03] MEDS: cefepime 2,000 mg SDV 2000 MG IVP ×2 (05:56→18:21)
[2024-09-03] MEDS: hyDRALAzine 20 mg/mL INJ 1 mL 10 MG IVP (06:03)
[2024-09-03] MEDS: LORazepam 2 mg/mL INJ 1 mL 0.5 MG IVP (06:39)
--- NOTE | 2024-09-03 07:03 | XR_ITS ---
WS: [id number] Portable AP upright chest, 09/03/2024 Clinical Data: Shortness of breath, possible aspiration Comparison: Portable chest, 09/02/2024 Findings: No nodules, masses or effusions are seen. The heart is normal. The pulmonary vascularity is not increased. No pneumonia or pneumothorax is seen. The diaphragms are flattened. The aortic arch and descending thoracic aorta show calcification and mild tortuosity. There are monitor leads on the chest wall. XR/XR chest 1V portable [id number] Impression: Hyperinflation and atherosclerosis.
[2024-09-03] MEDS: budesonide 0.5 mg/2 mL Neb INHALATION ×2 (08:01→20:20)
[2024-09-03] MEDS: ondansetron 2 mg/ML SDV 2 mL 4 MG IVP (08:04)
[2024-09-03] MEDS: ipratropium-albuterol 3 mL Neb INHALATION ×3 (08:05→20:20)
--- NOTE | 2024-09-03 08:08 | P.PN_ITS ---
Subjective 2 Subjective: Per report, patient had somewhat of a rough night. He had minimal sleep and was very restless. Found to be hypertensive. This morning, he is somewhat agitated in relation to his blood pressure cuff. [employer] reports symptoms of shortness of breath following eating last night. Patient complains of persistent shortness of breath this morning. Discussed plan of care with patient. Medications: Reviewed: Yes Vitals/I&O/Wt Last Vital Signs Temp 97.6 F 09/03/24 04:00 Pulse 95 09/03/24 08:08 Resp 28 H 09/03/24 07:50 BP 163/130 09/03/24 07:00 Pulse Ox 93 09/03/24 07:50 O2 Del Method Nasal Cannula 09/03/24 07:50 O2 Flow Rate 2 09/03/24 07:50 FiO2 35 09/01/24 09:43 09/02/24 09/03/24 09/03/24 22:59 06:59 14:59 Intake Total 100 / 150 Output Total 450 / 450 650 / 1100 Balance -350 / -300 -650 / -950 Weight last 48 hrs Weight 55.157 kg Weight 56.608 kg Physical Exam 2 Narrative: General: Patient is awake. Restless and slightly agitated. Head: Normocephalic. Atraumatic. Neck: No JVD. Cardiovascular: No gallops. No murmurs. Lungs: Tachypneic. Using accessory muscles with some belly breathing. No crackles or wheezing appreciated. On supplemental support. Skin: No jaundice. No rashes. Abdomen: Normal bowel sounds, abdomen soft and nontender. Genito Urinary: Catheter. Extremities: No cyanosis or clubbing. Musculoskeletal: no swollen or erythematous joints. Neurological: No myoclonus. Moves all 4 extremities. Left side extremity are weaker as compared to right sided extremities, although improved from prior exams. Urinary Catheter Management: Grewal: Cath Placed During This Visit: yes Reason for Continuing Indwelling Catheter: Accurate Measurement of Urinary Output in Critically Ill Patients Urinary Catheter Date of Insertion: 08/31/24 Urinary Catheter Time of Insertion: 09:45 Data 09/03/24 04:47 09/03/24 04:47 Micro: Microbiology 08/31/24 13:10 Gram Stain - Final Sputum - Endotracheal Tube Aspirate Sputum Culture - Final A&P Assessment and plan (1) Acute CVA (cerebrovascular accident): Acute stroke with positive MRI findings in right [place] Continue apixaban and aspirin Neurology is following, appreciate recommendations Continue to PT/OT/ST MBS reviewed Agitated/restless overnight without much sleep Very high risk for delirium, delirium precautions (2) Status epilepticus: Neurology following Seizure precautions Continue oxcarbazepine Continue Keppra Son reports that patient had adverse reaction with altered mentation with previous AED about 20 years ago, he thinks it could have been Keppra; we discussed would monitor progression closely while on this medication and adjust treatment if needed (3) Endotracheally intubated: Extubated 09/01, utilizing between 2 to 4 L nasal cannula Fevers have improved And remains short of breath, aspiration within differential Repeat chest x-ray Continue aspiration precautions Continue cefepime (4) COPD (chronic obstructive pulmonary disease): Continue breathing treatments Monitoring for wheezing, high risk for exacerbation Qualifiers: COPD type: emphysema Emphysema type: panlobular Qualified Code(s): 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 (5) Hypertension: Blood pressure uncontrolled overnight Continue home losartan, dose increased Continue metoprolol IV hydralazine as needed Qualifiers: Hypertension type: primary hypertension Qualified Code(s): I10 - Essential (primary) hypertension (6) Atrial fibrillation: Continue apixaban for stroke prophylaxis Continue metoprolol for rate control Qualifiers: Atrial fibrillation type: paroxysmal Qualified Code(s): I48.0 - Paroxysmal atrial fibrillation (7) Benign prostatic hyperplasia with lower urinary tract symptoms: Continue Flomax (8) Anxiety: Continue sertraline Continue ativan (9) Recurrent UTI: Continue nitrofurantoin (10) Hard of hearing: Hard of hearing at baseline (11) Cognitive decline: (12) Hypokalemia: Replace potassium Plan DVT prophylaxis: Apixaban Limited code PDMP PDMP Reviewed: Not Reviewed Attestations 2 Medical Necessity Statement*: Pt requires ongoing hospitalization for IV abx, further speech work up, and therapy. Coding Level of Care Code Acute Code for [facility] Diagnoses Acute CVA (cerebrovascular accident) I63.9 Status epilepticus G40.901 Endotracheally intubated Z97.8 Panlobular emphysema J43.1 COPD type: emphysema Emphysema type: panlobular Primary hypertension I10 Hypertension type: primary hypertension Paroxysmal atrial fibrillation I48.0 Atrial fibrillation type: paroxysmal Benign prostatic hyperplasia with lower urinary tract symptoms N40.1 Anxiety F41.9 Recurrent UTI N39.0 Hard of hearing H91.90 Cognitive decline R41.89 Hypokalemia E87.6
[2024-09-03] MEDS: magnesium sulfate premix 2 GM/50 ML PIGGYBACK IV (08:57)
[2024-09-03] MEDS: morphine 4 mg/mL SDV 1 mL 1 MG IVP (08:57)
[2024-09-03] MEDS: potassium chloride oral liq 20 mEq/15 mL UDC 40 MEQ PO (08:57)
[2024-09-03] MEDS: tamsulosin 0.4 mg Capsule PO (08:58)
[2024-09-03] MEDS: sertraline 100 mg Tablet PO (08:58)
[2024-09-03] MEDS: OXcarbazepine 300 mg Tablet PO ×2 (08:58→18:16)
[2024-09-03] MEDS: levETIRAcetam 500 MG/5 ML UDC PO ×2 (08:58→18:16)
[2024-09-03] MEDS: pantoprazole DR 40 mg Tablet PO (08:58)
[2024-09-03] MEDS: LORazepam 0.5 mg Tablet PO (08:58)
[2024-09-03] MEDS: losartan 50 mg Tablet PO (08:58)
[2024-09-03] MEDS: apixaban 5 mg Tablet PO ×2 (08:58→20:34)
[2024-09-03] MEDS: metoprolol tartrate 50 mg Tablet PO ×2 (08:59→20:34)
[2024-09-03] MEDS: lactobacillus 1 Tablet 1 TAB PO ×2 (08:59→18:16)
[2024-09-03 10:10] LABS: Levetiracetam Immunoassy 30.4 mcg/mL (6.0-46.0)
--- NOTE | 2024-09-03 19:03 | PC.OT ---
OT services withheld this date. Patient is fast asleep on two attempts. Nursing notified.
--- NOTE | 2024-09-03 19:14 | PC.NURSE ---
Shift summary: Pt stated he did not feel good today. He started the day off stating he could not breath with his O2 sats at 95%. He was tachypneic. Tachycardia and elevated BP noted on Monitor. Calming techniques, included pursed lip breathing used with patient., BP, respirations and heart rate finally reduced. Morphine 1 mg admin for his comfort. He received Magnesium and potassium replacement this shift. He has spent most fo the shift resting in bed. He did get out of bed for breakfast and lunch. He had 500ml of urine output, most of that was before noon. He ate about half of all his meals. He is utilizing 3lpm/NC currently, decreased from 4 he was using this am.
[2024-09-03] MEDS: nitrofurantoin SR (BID) 100 mg Capsule PO (20:33)
[2024-09-03] MEDS: bisacodyl 10 mg Supp PR (20:33)
[2024-09-03] MEDS: latanoprost 0.005% Op Soln 2.5 mL Btl 1 DROP EYE-BOTH (20:34)
[2024-09-03] MEDS: atorvastatin 40 mg Tablet PO (20:34)
[2024-09-04] VITALS (34 sets, daily range): BP systolic 102–175; BP diastolic 65–99; PULSE 70–93; RESP 16–35; TEMP 36.8–37.4; O2SAT 89–99
[2024-09-04 03:59] LABS: Glucose Point of Care 102 mg/dL (70-110)
[2024-09-04] MEDS: acetaminophen 500 mg Tablet PO (04:57)
[2024-09-04 05:56] LABS: Albumin Level 2.9 g/dL (3.5-5.2); Anion Gap 12.6 (5-19); Blood Urea Nitrogen 17 mg/dL (8-23); Calcium 8.6 mg/dL (8.5-10.5); Carbon Dioxide 25 mmol/L (22-29); Chloride 107 mmol/L (98-107); Creatinine Clr Calc Pharmacy 48.8369; Glucose 101 mg/dL (65-115); Magnesium 1.9 mg/dL (1.7-2.3); Phosphorus 2.1 mg/dL (2.5-4.5); Potassium 3.6 mmol/L (3.5-5.1); Sodium 141 mmol/L (136-145)
[2024-09-04] MEDS: aspirin 81 mg Chew Tablet PO (06:19)
[2024-09-04] MEDS: cefepime 2,000 mg SDV 2000 MG IVP ×2 (06:19→18:13)
[2024-09-04] MEDS: levETIRAcetam 500 MG/5 ML UDC PO ×2 (08:15→17:50)
[2024-09-04] MEDS: OXcarbazepine 300 mg Tablet PO ×2 (08:15→17:50)
[2024-09-04] MEDS: pantoprazole DR 40 mg Tablet PO (08:16)
[2024-09-04] MEDS: metoprolol tartrate 50 mg Tablet PO ×2 (08:16→20:06)
[2024-09-04] MEDS: losartan 50 mg Tablet PO (08:16)
[2024-09-04] MEDS: lactobacillus 1 Tablet 1 TAB PO ×2 (08:16→17:50)
[2024-09-04] MEDS: tamsulosin 0.4 mg Capsule PO (08:16)
[2024-09-04] MEDS: apixaban 5 mg Tablet PO ×2 (08:20→20:06)
[2024-09-04] MEDS: sertraline 100 mg Tablet PO (08:20)
[2024-09-04] MEDS: ipratropium-albuterol 3 mL Neb INHALATION ×3 (08:26→20:07)
[2024-09-04] MEDS: budesonide 0.5 mg/2 mL Neb INHALATION ×2 (08:27→20:07)
--- NOTE | 2024-09-04 13:50 | PM.DCS ---
Discharge Providers Date of Admission: 08/31/24 12:01 Date of Discharge: September 04, 2024 Attending Provider at Admission: Sujata Wright MD Attending Provider at Discharge: Prosper Darden MD Primary Care Provider: ELVIA Mitchell Diagnoses at Discharge Discharge Diagnosis (1) Acute CVA (cerebrovascular accident): Status: Acute (2) Status epilepticus: Status: Acute (3) Endotracheally intubated: Status: Acute (4) COPD (chronic obstructive pulmonary disease): Status: Chronic Qualifiers: COPD type: emphysema Emphysema type: panlobular Qualified Code(s): J43.1 - Panlobular emphysema (5) Hypertension: Status: Chronic Qualifiers: Hypertension type: primary hypertension Qualified Code(s): I10 - Essential (primary) hypertension (6) Atrial fibrillation: Status: Chronic Qualifiers: Atrial fibrillation type: paroxysmal Qualified Code(s): I48.0 - Paroxysmal atrial fibrillation (7) Benign prostatic hyperplasia with lower urinary tract symptoms: Status: Chronic (8) Anxiety: Status: Chronic (9) Recurrent UTI: Status: Chronic (10) Hard of hearing: Status: Chronic Permanent problem details: will not tell you he cannot hear, will nod and laugh (11) Cognitive decline: Status: Acute (12) Hypokalemia: Status: Acute Reason for Visit Reason for Visit: Stroke Alert Physical Exam Urinary Catheter Management: Grewal: Cath Placed During This Visit: yes Reason for Continuing Indwelling Catheter: Accurate Measurement of Urinary Output in Critically Ill Patients Urinary Catheter Date of Insertion: 08/31/24 Urinary Catheter Time of Insertion: 09:45 Discharge Data Studies Completed and Pending Completed Studies During Hospitalization Category Date Time Status CT head thrombolytic 15413 Stat Cat Scan 08/31/24 09:25 Completed CTA head neck [CT angio headneck* [id number]] Stat Cat Scan 08/31/24 09:33 Completed Modified barium swallow [FL barium swallow modifd [id number] Exams 09/02/24 12:12 Completed ] Routine XR chest 1V portable [id number] Routine Exams 09/02/24 06:56 Completed XR chest 1V portable [id number] Routine Exams 09/03/24 07:03 Completed XR chest 1V portable [id number] Stat Exams 08/31/24 09:51 Completed MR head wo/w con [id number] Routine MRI 09/02/24 09:16 Completed Radiology Impressions Head CT 08/31/24 09:25 IMPRESSION: 1. No evidence of intracranial hemorrhage or mass effect. 2. Advanced small vessel changes. Moderate parenchymal volume loss. 3. Chronic infarcts similar to previous described above. 4. No acute intracranial findings. Notified Simón Lind DO at 08/31/2024 9:38 AM. Head/Neck CTA 08/31/24 09:33 IMPRESSION: 1. No significant ICA stenosis bilaterally. 2. No evidence of proximal flow-limiting intracranial stenosis. 3. Aortic arch calcification. 4. Endotracheal tubes and enteric tubes. 5. Advanced emphysematous changes in the lung apices. Head MRI 09/02/24 09:16 IMPRESSION: 1. Tiny focus of faint restricted diffusion in the RIGHT malik may present a tiny acute to subacute infarct but equivocal. 2. Otherwise no evidence of restricted diffusion 3. Chronic lacunar infarcts in the malik 4. Advanced small vessel changes with advanced parenchymal volume loss. Small vessel changes in the malik. 5. Chronic infarcts as previously described. 6. Advanced symmetric atrophy temporal lobes and hippocampal formations. 7. No abnormal gadolinium enhancement. Modified Barium Swallow 09/02/24 12:12 Impression: 1. 2 swallows to clear oral cavity after normal initiation. 2. Premature spillage to the vallecula. 3. No aspiration or penetration. 4. Question of small pharyngeal lateral diverticulum. Chest X-Ray 09/03/24 07:03 Impression: Hyperinflation and atherosclerosis. Laboratory Results WBC 6.04 10^3/uL (3.29-11.43) 09/03/24 04:47 RBC 3.51 10^6/uL (3.85-5.65) L 09/03/24 04:47 Hgb 10.70 g/dL (11.27-16.99) L 09/03/24 04:47 Hct 31.2 % (37-53) L 09/03/24 04:47 MCV 88.9 fl (82-101) 09/03/24 04:47 MCH 30.5 pg (27-33) 09/03/24 04:47 MCHC 34.3 g/dL (30-55) D 09/03/24 04:47 RDW 13.3 % (12.1-15.1) 09/03/24 04:47 Plt Count 148 10^3/cmm (157-399) L 09/03/24 04:47 MPV 8.9 fL (7.4-10.4) 09/03/24 04:47 Neut % (Auto) 78.3 % 09/03/24 04:47 Lymph % (Auto) 10.6 % 09/03/24 04:47 Gilliam % (Auto) 8.1 % 09/03/24 04:47 Eos % (Auto) 2.2 % 09/03/24 04:47 Baso % (Auto) 0.5 % 09/03/24 04:47 Neut # (Auto) 4.73 10^3/uL (1.8-7.7) 09/03/24 04:47 Lymph # (Auto) 0.6 10^3/uL (0.8-4.8) L 09/03/24 04:47 Gilliam # (Auto) 0.5 10^3/uL (0.2-0.9) 09/03/24 04:47 Eos # (Auto) 0.1 10^3/uL (0.0-0.8) 09/03/24 04:47 Baso # (Auto) 0.0 10^3/uL (0.0-0.1) 09/03/24 04:47 Nucleated RBC % (auto) 0 % 09/03/24 04:47 Nucleated RBCs # 0.0 /100WBC 09/03/24 04:47 PT 13.20 SECONDS (12.1-14.9) 08/31/24 09:38 INR 0.94 (0.8-1.2) 08/31/24 09:38 APTT 28.5 SECONDS (23.9-36.7) 08/31/24 09:38 Specimen Type Arterial 09/01/24 04:03 Sample Site Brachial, right 09/01/24 04:03 ABG pH 7.38 (7.35-7.45) 09/01/24 04:03 ABG pCO2 43.7 mmHg (35-45) 09/01/24 04:03 ABG pO2 78.1 mmHg (80.0-100.0) L 09/01/24 04:03 ABG PO2/FiO2 Ratio 223 09/01/24 04:03 ABG HCO3 26.1 mmol/L (22-26) H 09/01/24 04:03 ABG O2 Saturation > 99.1 08/31/24 10:06 ABG Base Excess 0.8 mmol/L (-2.0-2.0) 09/01/24 04:03 Ruben Test N/a 09/01/24 04:03 A-a O2 Gradient 20.5 mmHg (5-10) H 08/31/24 10:06 Hematocrit 32.6 % (42-52) L 09/01/24 04:03 Hgb O2 Saturation > 100.0 % (95-100) H 08/31/24 10:06 Carboxyhemoglobin 1.1 %THgb (0.4-20.1) 08/31/24 10:06 Methemoglobin < 0.0 % (0.4-1.5) L 08/31/24 10:06 Total Hemoglobin 11.9 g/dL (14-18) L 08/31/24 10:06 Sodium 140.0 mmol/L (131-143) 08/31/24 10:06 Potassium 3.2 mmol/L (3.5-5.0) L 08/31/24 10:06 Glucose 94.0 mg/dL (70-115) 08/31/24 10:06 Ionized Calcium 1.1 mmol/L (1.1-1.4) 08/31/24 10:06 O2 Delivery Device Vent 09/01/24 04:03 FiO2 35.0 % 09/01/24 04:03 Tidal Volume 0.48 09/01/24 04:03 PEEP 5.0 cmH20 09/01/24 04:03 Plaster Mold Maker ID Kal 09/01/24 04:03 Sodium 141 mmol/L (136-145) 09/04/24 05:10 Potassium 3.6 mmol/L (3.5-5.1) 09/04/24 05:10 Chloride 107 mmol/L (98-107) 09/04/24 05:10 Carbon Dioxide 25 mmol/L (22-29) 09/04/24 05:10 Anion Gap 12.6 (5-19) 09/04/24 05:10 BUN 17 mg/dL (8-23) 09/04/24 05:10 Creatinine 0.7 mg/dL (0.7-1.2) 09/04/24 05:10 GFR Calculation Not Reportable 09/04/24 05:10 Glucose 101 mg/dL (65-115) 09/04/24 05:10 POC Glucose 102 mg/dL (70-110) 09/04/24 03:53 Estimat Average Glucose 91 09/01/24 03:48 Hemoglobin A1c 4.8 % (4.0-6.0) 09/01/24 03:48 Calculated Osmolality 292 mOsm/kg (285-295) 09/01/24 03:48 Calcium 8.6 mg/dL (8.5-10.5) 09/04/24 05:10 Phosphorus 2.1 mg/dL (2.5-4.5) L 09/04/24 05:10 Magnesium 1.9 mg/dL (1.7-2.3) 09/04/24 05:10 Total Bilirubin 0.3 mg/dL (0.15-1.2) 09/01/24 03:48 AST 16 U/L (0-40) 09/01/24 03:48 ALT 10 U/L (0-41) 09/01/24 03:48 Alkaline Phosphatase 120 U/L (40-130) 09/01/24 03:48 Total Protein 4.8 g/dL (6.6-8.7) L D 09/01/24 03:48 Albumin 2.9 g/dL (3.5-5.2) L 09/04/24 05:10 Globulin 1.9 g/dL (1.3-4.6) 09/01/24 03:48 Triglycerides 147 mg/dL (0-150) 09/01/24 03:48 Cholesterol 168 mg/dL (0-200) 09/01/24 03:48 LDL Cholesterol, Calc 103 mg/dL (50-129) 09/01/24 03:48 HDL Cholesterol 36 mg/dL (60-100) L 09/01/24 03:48 LDL/HDL Ratio 2.86 RATIO (0.00-3.22) 09/01/24 03:48 Cholesterol/HDL Ratio 4.67 mg/dL (1.0-5.00) 09/01/24 03:48 Procalcitonin 0.10 ng/mL (0-0.5) 09/01/24 03:48 Urine Color Yellow (Yellow) 08/31/24 10:03 Urine Appearance Clear (CLEAR) 08/31/24 10:03 Urine pH 8.0 (5-7) A 08/31/24 10:03 Ur Specific [place] 1.013 (1.005-1.030) 08/31/24 10:03 Urine Protein Negative (Negative) 08/31/24 10:03 Urine Glucose (UA) Negative (Normal) 08/31/24 10:03 Urine Ketones Negative (Negative) 08/31/24 10:03 Urine Blood Negative (Negative) 08/31/24 10:03 Urine Nitrate Negative (Negative) 08/31/24 10:03 Urine Bilirubin Negative (Negative) 08/31/24 10:03 Urine Urobilinogen 0.2 mg/dL (Negative) 08/31/24 10:03 Ur Leukocyte Esterase Negative (Negative) 08/31/24 10:03 Urine RBC 0-2 /hpf (0-2) 08/31/24 10:03 Urine WBC 0-5 /hpf (0-5) 08/31/24 10:03 Ur Squamous Epith Cells 0-5 /hpf (0-5) 08/31/24 10:03 Amorphous Sediment Not Reportable 08/31/24 10:03 Urine Bacteria None seen /hpf (NONE) 08/31/24 10:03 Hyaline Casts 4.52 /lpf 08/31/24 10:03 Urine Yeast Trace /hpf 08/31/24 10:03 Urine Opiates Screen Negative ng/mL (Negative) 08/31/24 10:03 Ur Barbiturates Screen Negative ng/mL (Negative) 08/31/24 10:03 Levetiracetam 30.4 mcg/mL (6.0-46.0) 09/01/24 08:08 Ur Phencyclidine Scrn Negative ng/mL (Negative) 08/31/24 10:03 Ur Amphetamines Screen Negative ng/mL (Negative) 08/31/24 10:03 U Benzodiazepines Scrn Positive ng/mL (Negative) H 08/31/24 10:03 Urine Cocaine Screen Negative ng/mL (Negative) 08/31/24 10:03 U Marijuana (THC) Screen Negative ng/mL (Negative) 08/31/24 10:03 Vitals Last Vital Signs Temp 98.4 F 09/04/24 12:00 Pulse 74 09/04/24 13:47 Resp 20 H 09/04/24 13:41 BP 128/77 09/04/24 12:00 Pulse Ox 99 09/04/24 13:41 O2 Del Method Nasal Cannula 09/04/24 13:41 O2 Flow Rate 3 09/04/24 13:41 FiO2 35 09/01/24 09:43 Discharge Plan Discharge Patient Disposition: Home Condition: Stable Prescriptions: New atorvastatin 40 mg Tablet 40 mg PO BEDTIME 30 Days Qty: 30 0RF losartan 50 mg Tablet 50 mg PO DAILY 30 Days Qty: 30 0RF cefdinir 300 mg capsule 300 mg PO BID 10 Days Qty: 20 0RF levetiracetam [Keppra] 500 mg tablet 500 mg PO BID 30 Days Qty: 60 0RF Continued oxcarbazepine 300 mg tablet 300 mg PO BID aspirin 81 mg Tablet,Chewable 81 mg PO QAM budesonide-formoterol [Symbicort] 80-4.5 mcg/actuation HFA aerosol inhaler 2 puff inhalation BID Qty: 10.2 0RF ondansetron HCl 4 mg Tablet 4 mg PO Q4H PRN (Reason: Nausea And Vomiting) sertraline 100 mg Tablet 100 mg PO DAILY magnesium hydroxide [Milk of Magnesia] 400 mg/5 mL Suspension 30 ml PO DAILY PRN (Reason: Constipation) bisacodyl [Dulcolax (bisacodyl)] 10 mg Suppository 10 mg [place] DAILY PRN (Reason: Constipation) metoprolol tartrate 50 mg Tablet 50 mg PO BID [place] Enema 19-7 gram/118 mL Enema 118 ml [place] DAILY PRN (Reason: Constipation) dextromethorphan-guaifenesin [Robitussin Cough-Chest Ej DM] 5-100 mg/5 mL Liquid 10 ml PO Q4H PRN (Reason: Cough) Culturelle 10 billion cell Capsule 1 cap PO DAILY Eliquis 5 mg Tablet 5 mg PO BID Biofreeze (menthol) 4 % Gel 1 applic TOPICAL TID PRN (Reason: Pain) ipratropium-albuterol 0.5 mg-3 mg(2.5 mg base)/3 mL solution for nebulization 3 ml inhalation TID Qty: 90 0RF acetaminophen 500 mg Tablet 500 mg PO Q6H PRN (Reason: Pain) Qty: 10 0RF nitrofurantoin macrocrystal 100 mg Capsule 100 mg PO DAILY Rx Instructions: must administer with a meal/food pantoprazole 40 mg tablet,delayed release (DR/EC) 40 mg PO DAILY latanoprost 0.005 % drops 1 drp ophthalmic (eye) BEDTIME albuterol sulfate 90 mcg/actuation HFA aerosol inhaler 2 puff INHALATION QID PRN (Reason: Shortness Of Breath) tamsulosin 0.4 mg capsule 0.4 mg PO DAILY Qty: 30 0RF potassium chloride 10 mEq Capsule, Extended Release 10 meq PO DAILY lorazepam 0.5 mg Tablet 0.5 mg PO DAILY Rx Instructions: up to 3 times daily fluticasone propionate 50 mcg/actuation [place],Suspension 1 spray INTRANASAL DAILY Rx Instructions: administer into each nostril sennosides-docusate sodium [Stool Softener-Laxative] 8.6-50 mg Tablet 1 tab PO DAILY Qty: 10 0RF oxycodone-acetaminophen 5-325 mg Tablet 1 tab PO Q6H PRN (Reason: Moderate Pain) Qty: 10 0RF Discontinued losartan 25 mg Tablet 25 mg PO DAILY Discharge Orders: Discharge Order (Routine); Ordered 09/04/24 Ordered By: Prosper Dadren Referrals: Giovanni Vega FNP [Primary Care Provider] - Harman Schafer MD [Physician] - 4-7 days (Evaluate small diverticulum in right piriformis sinus. Recent CVA w/ dysphagia.) Discharge Diet: Advance as tolerated Discharge Activity: Resume usual activity Patient Instructions: Opioid Safety Activity Restrictions/Additional Instructions: Follow speech therapy recommendations regarding diet: Dysphagia level 4 with extremely thick liquids. Recommend continuing speech therapy. Nursing facility to obtain insurance auth for continued speech and physical therapies. Discharge Attestations Status at Discharge: Cognitive status at discharge: cognitively intact, Behavioral status at discharge: cooperative, Coding Level of Care Code Acute Code for [facility] Diagnoses Acute CVA (cerebrovascular accident) I63.9 Status epilepticus G40.901 Endotracheally intubated Z97.8 Panlobular emphysema J43.1 COPD type: emphysema Emphysema type: panlobular Primary hypertension I10 Hypertension type: primary hypertension Paroxysmal atrial fibrillation I48.0 Atrial fibrillation type: paroxysmal Benign prostatic hyperplasia with lower urinary tract symptoms N40.1 Anxiety F41.9 Recurrent UTI N39.0 Hard of hearing H91.90 Cognitive decline R41.89 Hypokalemia E87.6
--- NOTE | 2024-09-04 14:06 | PC.NURSE ---
Contacted [facility] to notify them that this patient has been discharged and inquired about what we needed to do to get him returned home today. Notified that this patient would not be able to return to the group home until Friday because they do not have a social insurance analyst and he has been discharged from the facility because he has been gong more than 3 days so he would have to be readmitted. Notified Dr. Darden, states that he will cancel the discharge and will put in transfer orders for med surg.
--- NOTE | 2024-09-04 14:36 | PM.PN ---
Subjective Subjective: Patient Medications: Reviewed: Yes Vitals/I&O/Wt Last Vital Signs Temp 98.4 F 09/04/24 12:00 Pulse 74 09/04/24 13:47 Resp 20 H 09/04/24 13:41 BP 128/77 09/04/24 12:00 Pulse Ox 99 09/04/24 13:41 O2 Del Method Nasal Cannula 09/04/24 13:41 O2 Flow Rate 3 09/04/24 13:41 FiO2 35 09/01/24 09:43 09/03/24 09/04/24 09/04/24 22:59 06:59 14:59 Intake Total 100 / 550 200 / 200 Output Total 150 / 550 175 / 725 Balance -50 / 0 -175 / -175 200 / 200 Weight last 48 hrs Weight 53.796 kg Weight 55.157 kg Physical Exam Narrative: General: Patient is awake. Pleasant. Head: Normocephalic. Atraumatic. Neck: No JVD. Cardiovascular: No gallops. No murmurs. Lungs: Breath sounds slightly diminished. No crackles or wheezing appreciated. On supplemental support. Skin: No jaundice. No rashes. Abdomen: Normal bowel sounds, abdomen soft and nontender. Extremities: No cyanosis or clubbing. Musculoskeletal: no swollen or erythematous joints. Neurological: No myoclonus. Moves all 4 extremities. Left side extremity remain weaker than right sided extremities. Urinary Catheter Management: Grewal: Cath Placed During This Visit: yes Reason for Continuing Indwelling Catheter: Accurate Measurement of Urinary Output in Critically Ill Patients Urinary Catheter Date of Insertion: 08/31/24 Urinary Catheter Time of Insertion: 09:45 Data 09/03/24 04:47 09/04/24 05:10 A&P Assessment and plan (1) Acute CVA (cerebrovascular accident): Acute stroke with positive MRI findings in right malik Continue apixaban and aspirin Continue PT/OT/ST (2) Status epilepticus: Seizure precautions Continue oxcarbazepine Continue Keppra (3) Endotracheally intubated: Extubated 09/01, utilizing between 2 to 4 L nasal cannula Fevers have resolved Continue aspiration precautions Continue cefepime (4) COPD (chronic obstructive pulmonary disease): Continue breathing treatments Qualifiers: COPD type: emphysema Emphysema type: panlobular Qualified Code(s): J43.1 - Panlobular emphysema (5) Hypertension: Continue current losartan dose Continue metoprolol IV hydralazine as needed Qualifiers: Hypertension type: primary hypertension Qualified Code(s): I10 - Essential (primary) hypertension (6) Atrial fibrillation: Continue apixaban for stroke prophylaxis Continue metoprolol for rate control Qualifiers: Atrial fibrillation type: paroxysmal Qualified Code(s): I48.0 - Paroxysmal atrial fibrillation (7) Benign prostatic hyperplasia with lower urinary tract symptoms: Continue Flomax (8) Anxiety: Continue sertraline Continue ativan (9) Recurrent UTI: Continue nitrofurantoin (10) Hard of hearing: Hard of hearing at baseline (11) Cognitive decline: (12) Hypokalemia: Resolved Plan DVT prophylaxis: Apixaban Limited code PDMP PDMP Reviewed: Not Reviewed Attestations Medical Necessity Statement*: Pt requires ongoing hospitalization until acceptance is procured at facility, remain inpatient for rehab, pulmonary support and supportive care. 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
--- NOTE | 2024-09-04 18:26 | PC.NURSE ---
Report called to KIRSTIN Goins, transferred via bed to room 260, Notified Michelle patients grand daughter of patients transfer to room
[2024-09-04] MEDS: atorvastatin 40 mg Tablet PO (20:06)
[2024-09-04] MEDS: nitrofurantoin SR (BID) 100 mg Capsule PO (20:06)
[2024-09-04] MEDS: latanoprost 0.005% Op Soln 2.5 mL Btl 1 DROP EYE-BOTH (20:06)
[2024-09-05] VITALS (17 sets, daily range): BP systolic 147–180; BP diastolic 75–100; PULSE 64–113; RESP 14–26; TEMP 36.6–36.9; O2SAT 91–97
[2024-09-05] MEDS: hyDRALAzine 20 mg/mL INJ 1 mL 10 MG IVP (04:06)
[2024-09-05] MEDS: LORazepam 0.5 mg Tablet PO (04:36)
--- NOTE | 2024-09-05 04:39 | PC.NURSE ---
Sent 03:10 ? Read 03:11 Alessandro Duran is having increased confusion and anxiety. Patient stated that the [place] are after me . Patient was redirected but still anxious. He does have scheduled Ativan 0.5mg set for 0900 but nothing PRN. Sent 04:31 ? Read 04:32 Do now plz Ativan 0.5 Essence Perez - Hospitalist ? 04:33
[2024-09-05] MEDS: albuterol 2.5 mg/3 mL Neb INHALATION (05:16)
[2024-09-05] MEDS: aspirin 81 mg Chew Tablet PO (05:51)
[2024-09-05] MEDS: cefepime 2,000 mg SDV 2000 MG IVP ×2 (06:14→18:01)
[2024-09-05] MEDS: budesonide 0.5 mg/2 mL Neb INHALATION ×2 (07:54→20:57)
[2024-09-05] MEDS: ipratropium-albuterol 3 mL Neb INHALATION ×3 (07:54→20:57)
[2024-09-05] MEDS: tamsulosin 0.4 mg Capsule PO (09:01)
[2024-09-05] MEDS: sertraline 100 mg Tablet PO (09:01)
[2024-09-05] MEDS: metoprolol tartrate 50 mg Tablet PO ×2 (09:01→20:09)
[2024-09-05] MEDS: pantoprazole DR 40 mg Tablet PO (09:01)
[2024-09-05] MEDS: OXcarbazepine 300 mg Tablet PO ×2 (09:01→17:06)
[2024-09-05] MEDS: levETIRAcetam 500 MG/5 ML UDC PO ×2 (09:02→17:06)
[2024-09-05] MEDS: acetaminophen 500 mg Tablet PO (09:02)
[2024-09-05] MEDS: lactobacillus 1 Tablet 1 TAB PO ×2 (09:02→17:06)
[2024-09-05] MEDS: apixaban 5 mg Tablet PO ×2 (09:02→20:09)
[2024-09-05] MEDS: losartan 50 mg Tablet PO (09:02)
--- NOTE | 2024-09-05 11:45 | PM.PN ---
Subjective Subjective: Patient denies any new complaints. He remains on a modified diet due to aspiration risk. He is not a fan of the thickened liquids but understands why he is on it. He denies fevers, chills, nausea or emesis. Anticipating possible discharge tomorrow back to nursing facility. Medications: Reviewed: Yes Vitals/I&O/Wt Last Vital Signs Temp 97.8 F 09/05/24 08:00 Pulse 81 09/05/24 08:05 Resp 20 H 09/05/24 08:00 BP 170/91 09/05/24 09:02 Pulse Ox 96 09/05/24 08:00 O2 Del Method Nasal Cannula 09/05/24 08:00 O2 Flow Rate 3 09/05/24 07:55 FiO2 35 09/01/24 09:43 09/04/24 09/05/24 09/05/24 22:59 06:59 14:59 Intake Total 120 / 320 Output Total 220 / 220 450 / 670 Balance -100 / 100 -450 / -350 Weight last 48 hrs Weight 53.796 kg Physical Exam Narrative: General: Patient is awake. Pleasant. Eating breakfast. Head: Normocephalic. Atraumatic. Neck: No JVD. Cardiovascular: No gallops. No murmurs. Lungs: Breath sounds slightly diminished. No crackles or wheezing appreciated. Skin: No jaundice. No rashes. Abdomen: Normal bowel sounds, abdomen soft and nontender. Extremities: No cyanosis or clubbing. Musculoskeletal: no swollen or erythematous joints. Neurological: No myoclonus. Moves all 4 extremities. Left side extremity slightly weaker than right sided extremities. Urinary Catheter Management: Grewal: Cath Placed During This Visit: yes Reason for Continuing Indwelling Catheter: Accurate Measurement of Urinary Output in Critically Ill Patients Urinary Catheter Date of Insertion: 08/31/24 Urinary Catheter Time of Insertion: 09:45 Data 09/03/24 04:47 09/04/24 05:10 A&P Assessment and plan (1) Acute CVA (cerebrovascular accident): Acute stroke with positive MRI findings in right malik Continue apixaban and aspirin Continue PT/OT/ST Continue with modified diet, plan is to have patient return to nursing facility with plans for skilled speech and physical therapy Consider ENT consult on Friday versus outpatient referral as recommended by speech therapy Anticipate discharge back to facility possibly [facility], follow-up discharge planning with case management (2) Status epilepticus: Seizure precautions Continue oxcarbazepine Continue Keppra (3) Endotracheally intubated: Extubated 09/01 Continue aspiration precautions Continue cefepime (4) COPD (chronic obstructive pulmonary disease): Continue breathing treatments Qualifiers: COPD type: emphysema Emphysema type: panlobular Qualified Code(s): J43.1 - Panlobular emphysema (5) Hypertension: Continue losartan Continue metoprolol IV hydralazine as needed Qualifiers: Hypertension type: primary hypertension Qualified Code(s): I10 - Essential (primary) hypertension (6) Atrial fibrillation: Continue apixaban for stroke prophylaxis Continue metoprolol for rate control Qualifiers: Atrial fibrillation type: paroxysmal Qualified Code(s): I48.0 - Paroxysmal atrial fibrillation (7) Benign prostatic hyperplasia with lower urinary tract symptoms: Continue Flomax (8) Anxiety: Continue sertraline Continue ativan (9) Recurrent UTI: Continue nitrofurantoin (10) Hard of hearing: Hard of hearing at baseline (11) Cognitive decline: Plan DVT prophylaxis: Apixaban Limited code PDMP PDMP Reviewed: Not Reviewed Attestations Medical Necessity Statement*: Patient requires ongoing hospitalization for treatment of his stroke, blood pressure monitoring, antibiotics, and supportive care. 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
[2024-09-05] MEDS: atorvastatin 40 mg Tablet PO (20:09)
[2024-09-05] MEDS: latanoprost 0.005% Op Soln 2.5 mL Btl 1 DROP EYE-BOTH (20:09)
[2024-09-05] MEDS: nitrofurantoin SR (BID) 100 mg Capsule PO (20:10)
[2024-09-06 04:00] VITALS: BP 186/95; PULSE 72; RESP 18; TEMP 36.5; O2SAT 92
[2024-09-06] MEDS: hyDRALAzine 20 mg/mL INJ 1 mL 10 MG IVP (04:04)
[2024-09-06] MEDS: aspirin 81 mg Chew Tablet PO (05:46)
[2024-09-06] MEDS: cefepime 2,000 mg SDV 2000 MG IVP (06:00)
[2024-09-06 07:41] VITALS: BP 190/100; PULSE 88; RESP 19; TEMP 36.7; O2SAT 91
[2024-09-06 08:00] VITALS: PULSE 87; RESP 16; O2SAT 92
[2024-09-06] MEDS: budesonide 0.5 mg/2 mL Neb INHALATION (09:13)
[2024-09-06] MEDS: ipratropium-albuterol 3 mL Neb INHALATION (09:14)
[2024-09-06 09:37] VITALS: BP 190/100
[2024-09-06] MEDS: losartan 50 mg Tablet PO (09:37)
[2024-09-06] MEDS: LORazepam 0.5 mg Tablet PO (09:37)
[2024-09-06] MEDS: sertraline 100 mg Tablet PO (09:37)
[2024-09-06] MEDS: levETIRAcetam 500 MG/5 ML UDC PO (09:37)
[2024-09-06] MEDS: lactobacillus 1 Tablet 1 TAB PO (09:37)
[2024-09-06] MEDS: OXcarbazepine 300 mg Tablet PO (09:37)
[2024-09-06] MEDS: tamsulosin 0.4 mg Capsule PO (09:37)
[2024-09-06] MEDS: pantoprazole DR 40 mg Tablet PO (09:37)
[2024-09-06] MEDS: apixaban 5 mg Tablet PO (09:40)
[2024-09-06] MEDS: metoprolol tartrate 50 mg Tablet PO (09:40)
--- NOTE | 2024-09-06 10:18 | PC.NURSE ---
after school program coordinator rounds at 1000, pt resting quietly, has a wet cough, [place] set up and in his hand in the bed.
[2024-09-06 11:15] VITALS: BP 124/74; PULSE 99; RESP 17; TEMP 36.8; O2SAT 90
--- NOTE | 2024-09-06 12:03 | P.DS_ITS ---
Discharge Providers Date of Admission: 08/31/24 12:01 Date of Discharge: September 06, 2024 Attending Provider at Admission: Sujata Wright MD Attending Provider at Discharge: Vy Aguila MD Primary Care Provider: ELVIA Mitchell Diagnoses at Discharge Discharge Diagnosis (1) Acute CVA (cerebrovascular accident): Status: Resolved (2) Status epilepticus: Status: Resolved (3) Endotracheally intubated: Status: Resolved (4) COPD (chronic obstructive pulmonary disease): Status: Chronic Qualifiers: COPD type: emphysema Emphysema type: panlobular Qualified Code(s): J43.1 - Panlobular emphysema (5) Hypertension: Status: Chronic Qualifiers: Hypertension type: primary hypertension Qualified Code(s): I10 - Essential (primary) hypertension (6) Atrial fibrillation: Status: Chronic Qualifiers: Atrial fibrillation type: paroxysmal Qualified Code(s): I48.0 - Paroxysmal atrial fibrillation (7) Benign prostatic hyperplasia with lower urinary tract symptoms: Status: Chronic (8) Anxiety: Status: Chronic (9) Recurrent UTI: Status: Chronic (10) Hard of hearing: Status: Chronic Permanent problem details: will not tell you he cannot hear, will nod and laugh (11) Cognitive decline: Status: Acute Reason for Visit Reason for Visit: Stroke Alert Hospital Course Hospital Course 88-year-old male presented with seizure stroke initially requiring intubation. Neurology consulted and followed. Antiepileptics are adjusted. Of note during hospitalization he was also diagnosed with acute stroke with positive MRI findings and right malik. Patient is a long-term resident at a long-term at [facility]. Speech physical therapy evaluation return to the hospital. Speech therapy recommended ENT consult to evaluate small diverticulum in right piriform sinus. Patient was referred to ENT as an outpatient. On day of discharge he was stable vitals are stable. Patient doing well. No active complaints at this time. Physical Exam Narrative: General: Patient is awake. Pleasant. Eating breakfast. Head: Normocephalic. Atraumatic. Cardiovascular: No gallops. No murmurs. Lungs: Breath sounds slightly diminished. No crackles or wheezing appreciated. Abdomen: Normal bowel sounds, abdomen soft and nontender. Extremities: No cyanosis or clubbing. Neurological: No myoclonus. Moves all 4 extremities. Left side extremity slightly weaker than right sided extremities. Urinary Catheter Management: Grewal: Cath Placed During This Visit: yes Reason for Continuing Indwelling Catheter: Acute Urinary Retention or Obstruction Urinary Catheter Date of Insertion: 08/31/24 Urinary Catheter Time of Insertion: 09:45 Discharge Data Studies Completed and Pending Completed Studies During Hospitalization Category Date Time Status CT head thrombolytic 20854 Stat Cat Scan 08/31/24 09:25 Completed CTA head neck [CT angio headneck* 90414/85277] Stat Cat Scan 08/31/24 09:33 Completed Modified barium swallow [FL barium swallow modifd [id number] Exams 09/02/24 12:12 Completed ] Routine XR chest 1V portable [id number] Routine Exams 09/02/24 06:56 Completed XR chest 1V portable [id number] Routine Exams 09/03/24 07:03 Completed XR chest 1V portable [id number] Stat Exams 08/31/24 09:51 Completed MR head wo/w con [id number] Routine MRI 09/02/24 09:16 Completed Pending at discharge Category Date Time Status SARS Covid-2 Antigen Routine Lab 09/06/24 11:30 Received Radiology Impressions Head CT 08/31/24 09:25 IMPRESSION: 1. No evidence of intracranial hemorrhage or mass effect. 2. Advanced small vessel changes. Moderate parenchymal volume loss. 3. Chronic infarcts similar to previous described above. 4. No acute intracranial findings. Notified Simón Lind DO at 08/31/2024 9:38 AM. Head/Neck CTA 08/31/24 09:33 IMPRESSION: 1. No significant ICA stenosis bilaterally. 2. No evidence of proximal flow-limiting intracranial stenosis. 3. Aortic arch calcification. 4. Endotracheal tubes and enteric tubes. 5. Advanced emphysematous changes in the lung apices. Head MRI 09/02/24 09:16 IMPRESSION: 1. Tiny focus of faint restricted diffusion in the RIGHT malik may present a tiny acute to subacute infarct but equivocal. 2. Otherwise no evidence of restricted diffusion 3. Chronic lacunar infarcts in the malik 4. Advanced small vessel changes with advanced parenchymal volume loss. Small vessel changes in the malik. 5. Chronic infarcts as previously described. 6. Advanced symmetric atrophy temporal lobes and hippocampal formations. 7. No abnormal gadolinium enhancement. Modified Barium Swallow 09/02/24 12:12 Impression: 1. 2 swallows to clear oral cavity after normal initiation. 2. Premature spillage to the vallecula. 3. No aspiration or penetration. 4. Question of small pharyngeal lateral diverticulum. Chest X-Ray 09/03/24 07:03 Impression: Hyperinflation and atherosclerosis. Laboratory Results WBC 6.04 10^3/uL (3.29-11.43) 09/03/24 04:47 RBC 3.51 10^6/uL (3.85-5.65) L 09/03/24 04:47 Hgb 10.70 g/dL (11.27-16.99) L 09/03/24 04:47 Hct 31.2 % (37-53) L 09/03/24 04:47 MCV 88.9 fl (82-101) 09/03/24 04:47 MCH 30.5 pg (27-33) 09/03/24 04:47 MCHC 34.3 g/dL (30-55) D 09/03/24 04:47 RDW 13.3 % (12.1-15.1) 09/03/24 04:47 Plt Count 148 10^3/cmm (157-399) L 09/03/24 04:47 MPV 8.9 fL (7.4-10.4) 09/03/24 04:47 Neut % (Auto) 78.3 % 09/03/24 04:47 Lymph % (Auto) 10.6 % 09/03/24 04:47 [place] % (Auto) 8.1 % 09/03/24 04:47 Eos % (Auto) 2.2 % 09/03/24 04:47 Baso % (Auto) 0.5 % 09/03/24 04:47 Neut # (Auto) 4.73 10^3/uL (1.8-7.7) 09/03/24 04:47 Lymph # (Auto) 0.6 10^3/uL (0.8-4.8) L 09/03/24 04:47 [place] # (Auto) 0.5 10^3/uL (0.2-0.9) 09/03/24 04:47 Eos # (Auto) 0.1 10^3/uL (0.0-0.8) 09/03/24 04:47 Baso # (Auto) 0.0 10^3/uL (0.0-0.1) 09/03/24 04:47 Nucleated RBC % (auto) 0 % 09/03/24 04:47 Nucleated RBCs # 0.0 /100WBC 09/03/24 04:47 PT 13.20 SECONDS (12.1-14.9) 08/31/24 09:38 INR 0.94 (0.8-1.2) 08/31/24 09:38 APTT 28.5 SECONDS (23.9-36.7) 08/31/24 09:38 Specimen Type Arterial 09/01/24 04:03 Sample Site Brachial, right 09/01/24 04:03 ABG pH 7.38 (7.35-7.45) 09/01/24 04:03 ABG pCO2 43.7 mmHg (35-45) 09/01/24 04:03 ABG pO2 78.1 mmHg (80.0-100.0) L 09/01/24 04:03 ABG PO2/FiO2 Ratio 223 09/01/24 04:03 ABG HCO3 26.1 mmol/L (22-26) H 09/01/24 04:03 ABG O2 Saturation > 99.1 08/31/24 10:06 ABG Base Excess 0.8 mmol/L (-2.0-2.0) 09/01/24 04:03 Ruben Test N/a 09/01/24 04:03 A-a O2 Gradient 20.5 mmHg (5-10) H 08/31/24 10:06 Hematocrit 32.6 % (42-52) L 09/01/24 04:03 Hgb O2 Saturation > 100.0 % (95-100) H 08/31/24 10:06 Carboxyhemoglobin 1.1 %THgb (0.4-20.1) 08/31/24 10:06 Methemoglobin < 0.0 % (0.4-1.5) L 08/31/24 10:06 Total Hemoglobin 11.9 g/dL (14-18) L 08/31/24 10:06 Sodium 140.0 mmol/L (131-143) 08/31/24 10:06 Potassium 3.2 mmol/L (3.5-5.0) L 08/31/24 10:06 Glucose 94.0 mg/dL (70-115) 08/31/24 10:06 Ionized Calcium 1.1 mmol/L (1.1-1.4) 08/31/24 10:06 O2 Delivery Device Vent 09/01/24 04:03 FiO2 35.0 % 09/01/24 04:03 Tidal Volume 0.48 09/01/24 04:03 PEEP 5.0 cmH20 09/01/24 04:[address] ID Kal 09/01/24 04:03 Sodium 141 mmol/L (136-145) 09/04/24 05:10 Potassium 3.6 mmol/L (3.5-5.1) 09/04/24 05:10 Chloride 107 mmol/L (98-107) 09/04/24 05:10 Carbon Dioxide 25 mmol/L (22-29) 09/04/24 05:10 Anion Gap 12.6 (5-19) 09/04/24 05:10 BUN 17 mg/dL (8-23) 09/04/24 05:10 Creatinine 0.7 mg/dL (0.7-1.2) 09/04/24 05:10 GFR Calculation Not Reportable 09/04/24 05:10 Glucose 101 mg/dL (65-115) 09/04/24 05:10 POC Glucose 102 mg/dL (70-110) 09/04/24 03:53 Estimat Average Glucose 91 09/01/24 03:48 Hemoglobin A1c 4.8 % (4.0-6.0) 09/01/24 03:48 Calculated Osmolality 292 mOsm/kg (285-295) 09/01/24 03:48 Calcium 8.6 mg/dL (8.5-10.5) 09/04/24 05:10 Phosphorus 2.1 mg/dL (2.5-4.5) L 09/04/24 05:10 Magnesium 1.9 mg/dL (1.7-2.3) 09/04/24 05:10 Total Bilirubin 0.3 mg/dL (0.15-1.2) 09/01/24 03:48 AST 16 U/L (0-40) 09/01/24 03:48 ALT 10 U/L (0-41) 09/01/24 03:48 Alkaline Phosphatase 120 U/L (40-130) 09/01/24 03:48 Total Protein 4.8 g/dL (6.6-8.7) L D 09/01/24 03:48 Albumin 2.9 g/dL (3.5-5.2) L 09/04/24 05:10 Globulin 1.9 g/dL (1.3-4.6) 09/01/24 03:48 Triglycerides 147 mg/dL (0-150) 09/01/24 03:48 Cholesterol 168 mg/dL (0-200) 09/01/24 03:48 LDL Cholesterol, Calc 103 mg/dL (50-129) 09/01/24 03:48 HDL Cholesterol 36 mg/dL (60-100) L 09/01/24 03:48 LDL/HDL Ratio 2.86 RATIO (0.00-3.22) 09/01/24 03:48 Cholesterol/HDL Ratio 4.67 mg/dL (1.0-5.00) 09/01/24 03:48 Procalcitonin 0.10 ng/mL (0-0.5) 09/01/24 03:48 Urine Color Yellow (Yellow) 08/31/24 10:03 Urine Appearance Clear (CLEAR) 08/31/24 10:03 Urine pH 8.0 (5-7) A 08/31/24 10:03 Ur Specific [place] 1.013 (1.005-1.030) 08/31/24 10:03 Urine Protein Negative (Negative) 08/31/24 10:03 Urine Glucose (UA) Negative (Normal) 08/31/24 10:03 Urine Ketones Negative (Negative) 08/31/24 10:03 Urine Blood Negative (Negative) 08/31/24 10:03 Urine Nitrate Negative (Negative) 08/31/24 10:03 Urine Bilirubin Negative (Negative) 08/31/24 10:03 Urine Urobilinogen 0.2 mg/dL (Negative) 08/31/24 10:03 Ur Leukocyte Esterase Negative (Negative) 08/31/24 10:03 Urine RBC 0-2 /hpf (0-2) 08/31/24 10:03 Urine WBC 0-5 /hpf (0-5) 08/31/24 10:03 Ur Squamous Epith Cells 0-5 /hpf (0-5) 08/31/24 10:03 Amorphous Sediment Not Reportable 08/31/24 10:03 Urine Bacteria None seen /hpf (NONE) 08/31/24 10:03 Hyaline Casts 4.52 /lpf 08/31/24 10:03 Urine Yeast Trace /hpf 08/31/24 10:03 Urine Opiates Screen Negative ng/mL (Negative) 08/31/24 10:03 Ur Barbiturates Screen Negative ng/mL (Negative) 08/31/24 10:03 Levetiracetam 30.4 mcg/mL (6.0-46.0) 09/01/24 08:08 Ur Phencyclidine Scrn Negative ng/mL (Negative) 08/31/24 10:03 Ur Amphetamines Screen Negative ng/mL (Negative) 08/31/24 10:03 U Benzodiazepines Scrn Positive ng/mL (Negative) H 08/31/24 10:03 Urine Cocaine Screen Negative ng/mL (Negative) 08/31/24 10:03 U Marijuana (THC) Screen Negative ng/mL (Negative) 08/31/24 10:03 Vitals Last Vital Signs Temp 98.2 F 09/06/24 11:15 Pulse 99 09/06/24 11:15 Resp 17 09/06/24 11:15 BP 124/74 09/06/24 11:15 Pulse Ox 90 09/06/24 11:15 O2 Del Method Room Air 09/06/24 11:15 O2 Flow Rate 3 09/05/24 07:55 FiO2 35 09/01/24 09:43 Discharge Plan Discharge Patient Disposition: Xfer SNF Condition: Stable Prescriptions: New losartan 50 mg Tablet 50 mg PO DAILY 30 Days Qty: 30 0RF atorvastatin 40 mg Tablet 40 mg PO BEDTIME 30 Days Qty: 30 0RF levetiracetam [Keppra] 500 mg tablet 500 mg PO BID 30 Days Qty: 60 0RF cefdinir 300 mg capsule 300 mg PO BID 10 Days Qty: 20 0RF Continued oxcarbazepine 300 mg tablet 300 mg PO BID aspirin 81 mg Tablet,Chewable 81 mg PO QAM budesonide-formoterol [Symbicort] 80-4.5 mcg/actuation HFA aerosol inhaler 2 puff inhalation BID Qty: 10.2 0RF ondansetron HCl 4 mg Tablet 4 mg PO Q4H PRN (Reason: Nausea And Vomiting) sertraline 100 mg Tablet 100 mg PO DAILY magnesium hydroxide [Milk of Magnesia] 400 mg/5 mL Suspension 30 ml PO DAILY PRN (Reason: Constipation) bisacodyl [Dulcolax (bisacodyl)] 10 mg Suppository 10 mg TN DAILY PRN (Reason: Constipation) metoprolol tartrate 50 mg Tablet 50 mg PO BID Fleet Enema 19-7 gram/118 mL Enema 118 ml TN DAILY PRN (Reason: Constipation) dextromethorphan-guaifenesin [Robitussin Cough-Chest Ej DM] 5-100 mg/5 mL Liquid 10 ml PO Q4H PRN (Reason: Cough) Culturelle 10 billion cell Capsule 1 cap PO DAILY Eliquis 5 mg Tablet 5 mg PO BID Biofreeze (menthol) 4 % Gel 1 applic TOPICAL TID PRN (Reason: Pain) ipratropium-albuterol 0.5 mg-3 mg(2.5 mg base)/3 mL solution for nebulization 3 ml inhalation TID Qty: 90 0RF acetaminophen 500 mg Tablet 500 mg PO Q6H PRN (Reason: Pain) Qty: 10 0RF nitrofurantoin macrocrystal 100 mg Capsule 100 mg PO DAILY Rx Instructions: must administer with a meal/food pantoprazole 40 mg tablet,delayed release (DR/EC) 40 mg PO DAILY latanoprost 0.005 % drops 1 drp ophthalmic (eye) BEDTIME albuterol sulfate 90 mcg/actuation HFA aerosol inhaler 2 puff INHALATION QID PRN (Reason: Shortness Of Breath) tamsulosin 0.4 mg capsule 0.4 mg PO DAILY Qty: 30 0RF potassium chloride 10 mEq Capsule, Extended Release 10 meq PO DAILY lorazepam 0.5 mg Tablet 0.5 mg PO DAILY Rx Instructions: up to 3 times daily fluticasone propionate 50 mcg/actuation [place],Suspension 1 spray INTRANASAL DAILY Rx Instructions: administer into each nostril sennosides-docusate sodium [Stool Softener-Laxative] 8.6-50 mg Tablet 1 tab PO DAILY Qty: 10 0RF oxycodone-acetaminophen 5-325 mg Tablet 1 tab PO Q6H PRN (Reason: Moderate Pain) Qty: 10 0RF Discontinued losartan 25 mg Tablet 25 mg PO DAILY Discharge Orders: Discharge Order (Routine); Ordered 09/06/24 Ordered By: Vy Aguila Referrals: Giovanni Vega, [employer] [Primary Care Provider] - Harman Schafer MD [Physician] - 10/15/24 10:00 am (Evaluate small diverticulum in right piriformis sinus. Recent CVA w/ dysphagia. We have notified your physician's clinic of the need for a follow-up appointment to be scheduled. If you have not heard from them within the next 2 business days, please call them directly. ) Discharge Diet: Advance as tolerated Discharge Activity: Resume usual activity Patient Instructions: Losartan (By mouth) (Cozaar), Atorvastatin (By mouth) (Lipitor, Atorvaliq), Cefdinir (By mouth) (Omnicef), Levetiracetam (By mouth) (Keppra, Keppra XR, Spritam, Elepsia XR), Urinary Tract Infection in Men (DC) Activity Restrictions/Additional Instructions: Follow speech therapy recommendations regarding diet: Dysphagia level 4 with extremely thick liquids. Recommend continuing speech therapy. Nursing facility to obtain insurance auth for continued speech and physical therapies. Discharge Attestations Time Spent in Discharge Care*: greater than 30 min Status at Discharge: Cognitive status at discharge: cognitively intact , Behavioral status at discharge: cooperative , Quality Metrics Clinical Quality Measures [ No reported AMI, CVA or VTE this stay] Coding Level of Care Code 96911 Total time (in minutes) for Discharge: 35 Diagnoses Acute CVA (cerebrovascular accident) I63.9 Status epilepticus G40.901 Endotracheally intubated Z97.8 Panlobular emphysema J43.1 COPD type: emphysema Emphysema type: panlobular Primary hypertension I10 Hypertension type: primary hypertension Paroxysmal atrial fibrillation I48.0 Atrial fibrillation type: paroxysmal Benign prostatic hyperplasia with lower urinary tract symptoms N40.1 Anxiety F41.9 Recurrent UTI N39.0 Hard of hearing H91.90 Cognitive decline R41.89
[2024-09-06 12:35] LABS: SARS Covid-2 Antigen Negative (Negative)
--- NOTE | 2024-09-06 13:01 | PC.NURSE ---
Attempted to call report to [facility] and was unable to reach the nurse taking over. Will call back
[2024-09-06 14:43] VITALS: BP 124/74; PULSE 99; RESP 17; TEMP 36.8; O2SAT 90
== END 2024-09-06 14:35 | disposition skilled nursing facility (03) | DRG 100 ==
LOC: ER 09:34 → ICU 12:02 → MEDSURG 09-04 18:15
PROVIDERS: Internal Medicine; Admitting Provider Hospitalist; Emergency Provider Family Medicine; PCP Nurse Practitioner; Visit Provider Internal Medicine
DX: G40.101 Localization-related (focal) (partial) symptomatic epilepsy and epileptic syndromes with simple partial seizures, not intractable, with status epilepticus (principal); I63.81 Other cerebral infarction due to occlusion or stenosis of small artery; G81.94 Hemiplegia, unspecified affecting left nondominant side; I50.32 Chronic diastolic (congestive) heart failure; R71.0 Precipitous drop in hematocrit; J43.1 Panlobular emphysema; I48.0 Paroxysmal atrial fibrillation; H91.90 Unspecified hearing loss, unspecified ear; R41.89 Other symptoms and signs involving cognitive functions and awareness; I11.0 Hypertensive heart disease with heart failure; Q38.7 Congenital pharyngeal pouch; R29.713 NIHSS score 13; R47.1 Dysarthria and anarthria; E87.6 Hypokalemia; F41.9 Anxiety disorder, unspecified; I95.2 Hypotension due to drugs; G93.89 Other specified disorders of brain; H51.8 Other specified disorders of binocular movement; T41.295A Adverse effect of other general anesthetics, initial encounter; E78.5 Hyperlipidemia, unspecified; R29.810 Facial weakness; I73.9 Peripheral vascular disease, unspecified; N40.1 Benign prostatic hyperplasia with lower urinary tract symptoms; D69.6 Thrombocytopenia, unspecified; E83.51 Hypocalcemia; R50.9 Fever, unspecified; Z92.3 Personal history of irradiation; Z86.718 Personal history of other venous thrombosis and embolism; Z79.01 Long term (current) use of anticoagulants; Z79.899 Other long term (current) drug therapy; Z79.82 Long term (current) use of aspirin; Z88.0 Allergy status to penicillin; Z86.711 Personal history of pulmonary embolism; Z91.81 History of falling; Z85.46 Personal history of malignant neoplasm of prostate; Z87.891 Personal history of nicotine dependence; Z88.8 Allergy status to other drugs, medicaments and biological substances; Z87.440 Personal history of urinary (tract) infections; Z11.52 Encounter for screening for COVID-19
CPT/HCPCS: 36415; 36416; 36600; 51702; 70450; 70496; 70498; 70553; 71045; 74230; 80051; 80053; 80061; 80069; 80177; 80306; 81001; 82330; 82803; 82805; 82962; 83036; 83735; 84145; 85025; 85610; 85730; 87070; 87205; 87426; 92507; 92523; 92526; 92610; 92611; 93005; 94002; 94003; 94640; 94799; 96365; 96366; 96367; 96375; 96376; 97110; 97116; 97162; 97165; 97530; 97535; 99291; 99292; J0360; J0692; J1953; J2060; J2250; J2270; J2405; J3010; J3475; J3490; J7030; J7040; J7613; J7626; J9999

== ENCOUNTER → 2024-09-28 15:26 | Outpatient (BNVA) | payer MEDICARE, MEDICAID, SELFPAY | PROVIDERS: PCP Nurse Practitioner; Visit Provider Physician Assistant | DX: Z98.890 Other specified postprocedural states (principal); Z87.81 Personal history of (healed) traumatic fracture | CPT/HCPCS: 73110; 73502; 99213 ==